=== PATIENT | male | born 1940 | race Caucasian/White ===

== ENCOUNTER 2016-05-09 06:26 | Inpatient (IN) | payer BC, OTHER ==
[2015-12-30 15:03] VITALS: BMI 40.0
--- NOTE | 2015-12-30 15:41 | PAT Medication Instructions ---
Service Date Dec 30, 2015. Current Home Medication List Aspirin (Aspirin Ec), 81 MG PO QAM Bimatoprost (Lumigan), 1 DROPS OPB HS Celecoxib (Celecoxib), 200 MG PO QAM Cholecalciferol (Vitamin D), 2,000 INTER.UNIT PO QAM Cyanocobalamin (Vitamin B-12 1000 Mcg), 1,000 MCG PO QAM Donepezil HCl (Donepezil HCl), 5 MG PO HS Duloxetine HCl (Duloxetine HCl), 60 MG PO QPM Fluticasone Propionate (Nasal) (Flonase), 2 SPRAYS DEVENDRA DAILY PRN PRN for Allergies Gabapentin (Neurontin), 600 MG PO TID Hctz/Losartan (Hyzaar 25MG/100MG), 1 TAB PO QAM Ipratropium-Albuterol (Combivent Respimat), 1 PUFFS INH QID PRN PRN for SOB/ Wheezing Krill Oil (Krill Oil), 1 CAP PO QPM Lactobacillus (Acidophilus), 1 CAP PO BID Levothyroxine Sodium (Levothyroxine Sodium), 25 MCG PO 3XWK Levothyroxine Sodium (Levothyroxine Sodium), 50 MCG PO 4XWK Methadone Hcl (Dolophine), 40 MG PO QAM Methadone Hcl (Dolophine), 30 MG PO QPM/HS Mupirocin 2% (Bactroban 2%), 1 APPLN TOP BID Nystatin (Nystatin Cream), 1 APPLN TOP UD Omeprazole (Prilosec), 20 MG PO QAM Prednisone (Prednisone), 5 MG PO BID Trazodone HCl (Trazodone HCl), 100 MG PO HS Medication Instructions For Your Scheduled Surgery - Check with surgeon for instructions: Celecoxib (Celecoxib), 200 MG PO QAM - Hold the following medications 2 weeks prior to surgery: Krill Oil (Krill Oil), 1 CAP PO QPM - Hold the following medications 24 hours prior to surgery: Mupirocin 2% (Bactroban 2%), 1 APPLN TOP BID Nystatin (Nystatin Cream), 1 APPLN TOP UD - Hold the following medications the morning of surgery: Lactobacillus (Acidophilus), 1 CAP PO BID Hctz/Losartan (Hyzaar 25MG/100MG), 1 TAB PO QAM Cholecalciferol (Vitamin D), 2,000 INTER.UNIT PO QAM Cyanocobalamin (Vitamin B-12 1000 Mcg), 1,000 MCG PO QAM - Take the following medications the morning of surgery with a sip of water: Aspirin (Aspirin Ec), 81 MG PO QAM (okay to take per surgeon instructions) Prednisone (Prednisone), 5 MG PO BID Omeprazole (Prilosec), 20 MG PO QAM Methadone Hcl (Dolophine), 40 MG PO QAM Levothyroxine Sodium (Levothyroxine Sodium), 25 MCG PO 3XWK Levothyroxine Sodium (Levothyroxine Sodium), 50 MCG PO 4XWK Ipratropium-Albuterol (Combivent Respimat), 1 PUFFS INH QID PRN PRN for SOB/ Wheezing (if needed) Gabapentin (Neurontin), 600 MG PO TID Fluticasone Propionate (Nasal) (Flonase), 2 SPRAYS DEVENDRA DAILY PRN PRN for Allergies - Take the following medications as scheduled the night before surgery: Prednisone (Prednisone), 5 MG PO BID Trazodone HCl (Trazodone HCl), 100 MG PO HS Methadone Hcl (Dolophine), 30 MG PO QPM/HS Lactobacillus (Acidophilus), 1 CAP PO BID Ipratropium-Albuterol (Combivent Respimat), 1 PUFFS INH QID PRN PRN for SOB/ Wheezing Gabapentin (Neurontin), 600 MG PO TID Fluticasone Propionate (Nasal) (Flonase), 2 SPRAYS DEVENDRA DAILY PRN PRN for Allergies Duloxetine HCl (Duloxetine HCl), 60 MG PO QPM Bimatoprost (Lumigan), 1 DROPS OPB HS Donepezil HCl (Donepezil HCl), 5 MG PO HS If you have any questions please call us at [phone] (Leigh Bowen PA-C) or [phone] or [phone]
[2015-12-30 15:50] LABS: BASO % 0.2 %; BASO ABS # 0.02 K/uL (0-0.2); COMPLETE YES; EOS % 5.1 %; IG% 0.9 %; LYMPH ABS # 1.45 K/uL (1.2-3.4); MEAN CELL VOLUME 83.9 fL (80-100); MEAN CORPUSCULAR HEMOGLOBIN 26.9 pg (25-34); MEAN CORPUSCULAR HGB CONC 32.1 g/dl (32-36); MEAN PLATELET VOLUME 9.5 fL (7.4-10.4); MONO % 6.7 %; NEUT % 71.1 %; PLATELET COUNT 172 K/uL (130-400); RED BLOOD COUNT 4.65 M/uL (4.7-6.1); WHITE BLOOD COUNT 9.05 K/uL (4.8-10.8)
[2015-12-30 15:58] LABS: URINE APPEARANCE CLEAR (CLEAR); URINE BILIRUBIN NEG (NEG); URINE COLOR YELLOW; URINE NITRITE NEG (NEG); URINE PH 7.5 (4.5-7.5); ZZUR CULT IF INDIC CLEAN CATCH NO
[2015-12-30 16:02] LABS: MANUAL MICROSCOPIC REQUIRED? NO; REVIEW REQ? NO; UROBILINOGEN POS (NEG)
[2015-12-30 16:04] LABS: PARTIAL THROMBOPLASTIN RATIO 1.1; PROTHROMBIN TIME (PATIENT) 9.9 SECONDS (9.0-12.0)
[2015-12-30 16:35] LABS: BUN/CREATININE RATIO 16.6 (10-20); CREATININE 1.1 mg/dl (0.60-1.40); POTASSIUM 4.2 mmol/L (3.5-5.1)
--- NOTE | 2016-01-03 14:08 | HISTORY & PHYSICAL EXAMINATION ---
DATE OF ADMISSION: 01/25/2016 CHIEF COMPLAINT: Left knee degenerative joint disease. HISTORY OF PRESENT ILLNESS: This 75-year-old white male presented to the office with his with complaints of left knee pain for the last 6-7 months. He had minor discomfort in the knee before then. He had a fall in June and has had persisting knee pain since. It is present mostly with standing and ambulation. Mild discomfort when he rests. He is currently sitting in a wheelchair. He denies any catching or locking. He has tried cortisone injections, activity modification, and viscosupplementation as well as topical anti-inflammatories without lasting relief. X-rays have been obtained. He elects to proceed with left total knee arthroplasty in hopes of alleviating his pain. PAST MEDICAL HISTORY: Significant for hypertension, obesity, hypothyroidism, sleep apnea, history of stroke, fibromyalgia, osteoarthritis, depression, migraines, and seborrheic keratosis. PREVIOUS SURGERIES: Parathyroid excision 1993, herniorrhaphy 2000, bowel resection 1999, kidney stone extraction, skin cancer excision, left shoulder arthroscopy, knee arthroscopy, and cholecystectomy. ALLERGIES: KNOWN ALLERGY TO IVP DYE. CURRENT MEDICATIONS: Aspirin 81 mg daily, Combivent inhaler b.i.d., vitamin B12 2500 mcg sublingual daily, Voltaren topical gel q.i.d. p.r.n., Dulera inhaler q.i.d., Neurontin 300 mg p.o. q.i.d., Hyzaar 100 mg/12.5 mg p.o. daily, Synthroid 25 mcg p.o. daily, methadone 40 mg p.o. t.i.d., multivitamin daily, trazodone 50 mg p.o. at bedtime. SOCIAL HISTORY: The patient is retired. . No alcohol use, quit tobacco use in July 2007. FAMILY HISTORY: Noncontributory. REVIEW OF SYSTEMS: Significant for above stated conditions, otherwise unremarkable. PHYSICAL EXAMINATION: GENERAL: Well-developed, well-nourished elderly white male in no acute distress. Sitting in a wheelchair. Alert and oriented. SKIN: Warm and dry with good turgor. No rashes or lesions. No ecchymosis or erythema. He does have some minor abrasions present on his right anterior farias. HEAD, EYES, EARS, NOSE, AND THROAT: Normocephalic, atraumatic. Eyes PERRLA, EOMI. Nares patent bilaterally without turbinate enlargement. Oropharynx without erythema or exudate. No lesions noted. Uvula midline. Oral mucosa moist. Upper denture plate is noted. He has no current lower denture plate. HEART: RRR. No MGR. LUNGS: Clear to auscultation bilaterally. No crackles, rhonchi or wheezing. Good air movement. ABDOMEN: Obese. Bowel sounds present x4, soft, nontender. No organomegaly. No masses. MUSCULOSKELETAL: Left knee evaluation reveals no intra-articular effusion. Prominent tibial tubercle. He has focal pain with palpation over the medial and lateral joint lines. There is also peripatellar discomfort with palpation. No crepitus with motion. Stable collateral ligaments. He lacks approximately 5 degrees of terminal extension. Flexion to around 95 degrees. Strength is 4+/5 with fair quad tone. He is unable to hold a straight leg raise. No defect in the patellar tendon or quadriceps tendon. Patellar mobility is fair. Right knee has intact motion, but he does have motor deficits for flexion and extension. Strength is 4/5 for the right. He has intact function to the upper extremities without appreciable deficit. NEUROLOGIC: Cranial nerves II through XII are intact. Gross sensation is intact across both lower extremities via soft touch. Peripheral pulses are 2+. DATA: Radiographic images obtained show end-stage DJD of the left knee in the patellofemoral compartment. He has significant arthritic change in the medial and lateral compartments as well. Periarticular osteophytes, subchondral sclerosis, and joint space narrowing are evident. IMPRESSION: Left knee end-stage degenerative joint disease. Right lower extremity residual weakness from previous cerebrovascular accident. PLAN: Informed written consent was obtained to proceed with left total knee arthroplasty. Postoperative prescriptions for Percocet and Coumadin will be provided at discharge from the hospital. Anticipate discharge to either [facility] or [facility] after surgery. [facility] is the first option with [facility] as a backup. He has already been evaluated by [facility] and they feel he is a reasonable candidate. He already has an appropriate wheelchair. He will obtain medical clearance from Dr. Meyers. Preoperative lab work, EKG, and chest x-ray have been ordered.
--- NOTE | 2016-04-16 13:53 | HISTORY & PHYSICAL EXAMINATION ---
DATE OF ADMISSION: 05/09/2016 PREOPERATIVE HISTORY AND PHYSICAL ATTENDING PHYSICIAN: Dr. Momo Disla. CHIEF COMPLAINT: Left knee DJD. HISTORY OF PRESENT ILLNESS: This is a 75-year-old male who presents to clinic today for preoperative history and physical examination. The patient has a longstanding history of persistent left knee pain that has become worse over the past year. The patient has failed conservative treatment to try to alleviate pain in his left knee. The patient has been scheduled for surgical procedure several times but has had to cancel due to the presence of shingles on his torso. The patient states that the shingles have resolved completely. The patient states that at this time he uses a walker when moving around his house at all times. At present, he is seated in a wheelchair for his evaluation today. The patient's is concerned today because she states the patient has fallen over his walker approximately 3 times in the past several weeks and had superficial abrasions to the posterior aspect of his right elbow and also complains of right wrist pain. She would like the patient to have x-rays of his wrist and elbow obtained at today's visit to be sure that no fracture is visible. Otherwise, the patient denies chest pain, shortness of breath, fever, chills, sweats, nausea, vomiting, diarrhea or numbness or tingling in his left lower extremity. PAST SURGICAL HISTORY: Parathyroid excision, hernia repair, bowel resection, kidney stone extraction, skin cancer excision, left shoulder arthroscopy, right knee arthroscopy and cholecystectomy. PAST MEDICAL HISTORY: Hypertension, obesity, hypothyroidism, sleep apnea, stroke x2, fibromyalgia, osteoarthritis, depression, migraines, seborrheic keratosis, colitis and history of C. diff. MEDICATIONS: Acidophilus oral tablet 1 tab daily, Aricept 1 tab at bedtime, aspirin low strength 81 mg enteric-coated tablet 1 tab daily, Celebrex 200 mg oral capsule 1 capsule as needed for pain, Combivent inhaler twice daily, Cymbalta 1 tab daily, fish oil 1000 mg capsule 1 capsule daily, Hyzaar 100 mg/12.5 mg oral tablet 1 tab daily, methadone 40 mg oral tablet 1 tap 3 times daily, Neurontin 300 mg oral capsule 1 capsule 4 times daily, nortriptyline 10 mg oral capsule 1 capsule daily, prednisone 5 mg tablet twice daily, Synthroid 25 mcg oral tablet 1 tab daily, vitamin B12 2500 mcg sublingual tablet daily, Voltaren 1% topical gel 1 application 4 times daily as needed for pain. ALLERGIES: THE PATIENT HAS AN ALLERGY TO IVP DYE. SOCIAL HISTORY: The patient denies history of alcohol or illicit drug use, states he was a pack per day smoker for 20+ years, but quit approximately 8 years ago. FAMILY HISTORY: Noncontributory. PHYSICAL EXAMINATION: SKIN: The patient's skin is normal in appearance. No open skin lesions or discharge. EYES: Pupils are equal and reactive to light and accommodation. Extraocular movements are intact. EARS: Canals are clear of cerumen. Tympanic membranes are intact bilaterally with no bulging or effusion. NOSE: Turbinates pink and boggy in appearance. No appreciable rhinorrhea. THROAT: Posterior oropharynx clear with absence of edema, erythema or exudate. CARDIOVASCULAR: The patient has a regular rate and rhythm with no murmurs or gallops appreciated. LUNGS: Auscultation of the lung jha reveals clear breath sounds throughout with no wheezing, rales or rhonchi. ABDOMEN: Obese, nondistended, nontender with normoactive bowel sounds. EXTREMITIES: LEFT KNEE: The patient has medial and lateral joint line tenderness upon palpation with knee placed in a flexed position. He also has audible crepitation with active, passive range motion of the left knee joint; however, there is no notable edema, erythema, ecchymosis, warmth or palpable bony deformity. The patient's left patella is nonmobile due to arthritic changes within the patellofemoral joint. The patient has no varus or valgus laxity and negative AP drawer sign and negative Kathrin test. Left calf soft and supple, nontender to palpation. He is able to extend to 5 degrees and flex to approximately 92 degrees. He experiences no referred knee pain with dorsi or plantarflexion of the foot actively or passively against resistance. The patient is neurovascularly intact left lower extremity. His peripheral pulses are palpable. His capillary refill is brisk. RIGHT UPPER EXTREMITY: The patient has superficial skin tear of the posterior aspect of the right proximal forearm covered with Band-Aids. He has some mild tenderness to palpation over this area; however, he has no tenderness over the olecranon, the radial head, medial and lateral epicondylar distal humerus. He is able to reach terminal flexion and extension of the elbow joint. The patient was also experiences mild tenderness to palpation over the dorsal surface of the right distal radius with some minimal edema, but no erythema, ecchymosis, warmth or palpable deformity. He elicits pain over this area with deep palpation but has no referred pain with flexion, extension, ulnoradial deviation, pronation or supination of the wrist directly or passively against resistance. The patient has no tenderness over his metacarpals. He has good dexterity in his fingers and strength is equal bilaterally. He is able to resist distraction compression of the digits able to resist distraction grasp. He is neurovascularly intact in right upper extremity. Peripheral pulses are palpable. Capillary refill is brisk. All other extremities are normal in appearance with appropriate range of motion and strength. NEUROLOGIC: Cranial nerves II-XII are intact with no motor or sensory deficit. PSYCHOLOGICAL AND GENERAL: The patient is alert and oriented x3 with proper grooming and hygiene. DIAGNOSIS: Left knee degenerative joint disease. PROCEDURE: Left total knee arthroplasty. RADIOGRAPHIC IMAGING: Left knee - images show endstage degenerative joint disease of the patellofemoral compartment as well as significant arthritic changes within the medial and lateral compartments with multiple femoral condylar osteophytes, subchondral sclerosis, and joint space narrowing. Right wrist, elbow and forearm and hand x-rays - no appreciable fracture noted in any of the elbow films in the presence of the anterior, posterior fat pad. Wrist x-rays show no appreciable fracture of the distal radius or ulna. No involvement of any carpal bones; however, x-rays of the head showed an old-healing fracture of the shaft of the right fourth metacarpal. The patient also has significant arthritis within and wrist joints. PLAN: The patient is scheduled to undergo this procedure with Dr. Momo zapienity at the [facility] on 05/09/2016. Risks and complications of surgery were explained to the patient understands and agrees. Written consent to perform the procedure was obtained. The patient was advised to significant risks including infection, bleeding, pain, scarring, nerve and blood vessel damage, weakness, wound problems, stiffness, incomplete relief of symptoms, heart attack, stroke, , hardware failure, loosening, molina of fracture, blood clots and embolism. The patient was also given an order to obtain preoperative blood work including CBC, CMP, PT, INR, PTT, blood type and screen, urinalysis, urine culture and sensitivity, EKG, chest x-ray and medical clearance from his primary care provider, Dr. Zuleta. The patient states that he will obtain necessary blood work when he is scheduled to have his preoperative anesthesia testing at the hospital. The patient was advised that provided with a prescription for pain medication upon discharge from the hospital along with Coumadin that will take this for 6 weeks postoperatively for DVT prophylaxis. The patient and states that he will most likely go to rehab facility, preferably [facility] in [place] for 2 weeks and then continue rehabilitation at a facility close to their home. The patient was advised of his postoperative followup visit will be scheduled with Joey Fu on 05/24/2016 at 10:00 a.m. The patient was provided with a new wrist splint to wear on his right wrist due to the strain that he suffered from the fall and he uses a walker for ambulation all times. The patient's thanks for the care that they received at our clinic today and states that if they have any other additional questions or concerns that should arise prior to the scheduled surgical date they will contact the clinic accordingly. LEVI
[2016-04-18 11:39] VITALS: BMI 41.0
--- NOTE | 2016-04-18 12:20 | PAT Medication Instructions ---
Service Date Apr 18, 2016. Current Home Medication List Aspirin (Aspirin Ec), 81 MG PO QAM Bimatoprost (Lumigan), 1 DROPS OPB HS Celecoxib (Celecoxib), 200 MG PO QPM Cholecalciferol (Vitamin D), 2,000 INTER.UNIT PO QPM Cyanocobalamin (Vitamin B-12 1000 Mcg), 1,000 MCG PO QAM Donepezil HCl (Donepezil HCl), 5 MG PO HS Duloxetine HCl (Duloxetine HCl), 60 MG PO HS Gabapentin (Neurontin), 600 MG PO TID Hctz/Losartan (Hyzaar 25MG/100MG), 1 TAB PO QAM Ipratropium-Albuterol (Combivent Respimat), 1 PUFFS INH QID PRN for SOB/Wheezing Krill Oil (Krill Oil), 1 CAP PO QPM Lactobacillus (Acidophilus), 1 CAP PO BID Levothyroxine Sodium (Levothyroxine Sodium), 25 MCG PO 3XWK Levothyroxine Sodium (Levothyroxine Sodium), 50 MCG PO 4XWK Methadone Hcl (Dolophine), 40 MG PO QAM Methadone Hcl (Dolophine), 30 MG PO QPM/HS Mupirocin 2% (Bactroban 2%), 1 APPLN TOP BID PRN for PRN Nortriptyline (Pamelor), 10 MG PO HS Nystatin (Nystatin Cream), 1 APPLN TOP UD Omeprazole (Prilosec), 20 MG PO NOON Prednisone (Prednisone), 5 MG PO BID Solifenacin (Vesicare), 10 MG PO QPM Medication Instructions For Your Scheduled Surgery - Check with surgeon for instructions: Celecoxib (Celecoxib), 200 MG PO QPM - Hold the following medications 2 weeks prior to surgery: Krill Oil (Krill Oil), 1 CAP PO QPM - Hold the following medications 24 hours prior to surgery: Nystatin (Nystatin Cream), 1 APPLN TOP UD Mupirocin 2% (Bactroban 2%), 1 APPLN TOP BID PRN for PRN - Hold the following medications the morning of surgery: Hctz/Losartan (Hyzaar 25MG/100MG), 1 TAB PO QAM Lactobacillus (Acidophilus), 1 CAP PO BID Cholecalciferol (Vitamin D), 2,000 INTER.UNIT PO QPM Cyanocobalamin (Vitamin B-12 1000 Mcg), 1,000 MCG PO QAM - Take the following medications the morning of surgery with a sip of water: Prednisone (Prednisone), 5 MG PO BID Omeprazole (Prilosec), 20 MG PO NOON Methadone Hcl (Dolophine), 40 MG PO QAM (per prescribing physician instructions) Levothyroxine Sodium (Levothyroxine Sodium), 25 MCG PO 3XWK Levothyroxine Sodium (Levothyroxine Sodium), 50 MCG PO 4XWK Gabapentin (Neurontin), 600 MG PO TID Ipratropium-Albuterol (Combivent Respimat), 1 PUFFS INH QID PRN for SOB/Wheezing Aspirin (Aspirin Ec), 81 MG PO QAM (okay to continue per surgeon) - Take the following medications as scheduled the night before surgery: Bimatoprost (Lumigan), 1 DROPS OPB HS Solifenacin (Vesicare), 10 MG PO QPM Prednisone (Prednisone), 5 MG PO BID Nortriptyline (Pamelor), 10 MG PO HS Methadone Hcl (Dolophine), 30 MG PO QPM/HS Lactobacillus (Acidophilus), 1 CAP PO BID Gabapentin (Neurontin), 600 MG PO TID Duloxetine HCl (Duloxetine HCl), 60 MG PO HS Ipratropium-Albuterol (Combivent Respimat), 1 PUFFS INH QID PRN for SOB/Wheezing Donepezil HCl (Donepezil HCl), 5 MG PO HS If you have any questions please call us at [phone] (Leigh Bowen PA-C) or [phone] or [phone]
[2016-04-18 12:53] LABS: BASO % 0.2 %; BASO ABS # 0.02 K/uL (0-0.2); COMPLETE YES; EOS % 3.6 %; HEMATOCRIT 37.7 % (42-52); IG% 0.5 %; LYMPH % 13.3 %; LYMPH ABS # 1.26 K/uL (1.2-3.4); MEAN CELL VOLUME 82.5 fL (80-100); MEAN CORPUSCULAR HEMOGLOBIN 26.5 pg (25-34); MEAN CORPUSCULAR HGB CONC 32.1 g/dl (32-36); MEAN PLATELET VOLUME 10.4 fL (7.4-10.4); MONO % 5.8 %; NEUT % 76.6 %; PLATELET COUNT 213 K/uL (130-400); RED BLOOD COUNT 4.57 M/uL (4.7-6.1)
[2016-04-18 13:06] LABS: PARTIAL THROMBOPLASTIN RATIO 1.1; PROTHROMBIN TIME (PATIENT) 10.2 SECONDS (9.0-12.0)
[2016-04-18 13:23] LABS: BUN/CREATININE RATIO 19.7 (10-20); POTASSIUM 4.3 mmol/L (3.5-5.1)
[2016-04-18 14:22] LABS: CALCIUM 9.2 mg/dl (8.5-10.1)
[2016-04-24 13:58] LABS: URINE APPEARANCE CLEAR (CLEAR); URINE BILIRUBIN NEG (NEG); URINE COLOR YELLOW; URINE NITRITE NEG (NEG); URINE PH 7.5 (4.5-7.5); URINE SPECIFIC GRAVITY 1.008 (1.000-1.030); UROBILINOGEN NEG (NEG); ZZUR CULT IF INDIC CLEAN CATCH NO
[2016-04-24 14:10] LABS: MANUAL MICROSCOPIC REQUIRED? NO; REVIEW REQ? NO
[~2016-05-09] VITALS: Ht 180.3 cm; Wt 133.7 kg
[2016-05-09] VITALS (9 sets, daily range): BP systolic 132–173; BP diastolic 59–104; PULSE 64–73; TEMP 36.5–37; O2SAT 70–97; Ht 180.3 cm; Wt 133.7 kg
[~2016-05-09 06:26] MED LIST: ARC5 PO; ASPI81TA28 PO; BCTROWC TOP; BIMA0.01 OPB; CEFAZOLIN 3000 MG/65 ML D5W 65 ML IV SCH; CELE1CAP30 PO; CHOL200010 PO; CYAN10004 PO; CYM60 PO; GABA-113 PO; HYZ/10015 PO; IPRA1AER2 INH; KRIL1000 PO; LACTATED RINGER'S 1000ML IV SCH; LACTATED RINGER'S 500 ML IV SCH; LACTCAP3 PO; LEVO25TA5 PO; METH10TA2 PO; NORT10CA2 PO; NYSCR30 TOP; OMEP20CA9 PO; PRED-301 PO; ROPIVACAINE 5MG/ML 30 ML 150 MG, BUPIVACAINE/EPINEPHR 0.5% MPF 30 ML, KETOROLAC TROMETH... INFIL SCH; SOLI10TA2 PO; TRANEXAMIC ACID INJ 1,000 MG in SODIUM CHLORIDE 0.9% 100ML 100 ML IV SCH; TRANEXAMIC ACID INJ 1,000 MG in SODIUM CHLORIDE 0.9% 100ML 100 ML TOP ONE
--- NOTE | 2016-05-09 06:29 | History & Physical Bridge Note ---
H&P Re-Evaluation Bridge Note: I have examined the patient, reviewed the History & Physical and in the interval since the performance of the History & Physical I have noted the following changes of clinical significance: No changes note...dredavised of risks
[2016-05-09] MEDS ORDERED: FENTANYL CITRATE INJ 50 MCG/1 ML 2 ML VIAL ONE (07:31)
[2016-05-09] MEDS ORDERED: MIDAZOLAM HCL 1 MG/ML 2ML VIAL ONE ×2 (07:32)
[2016-05-09] MEDS ORDERED: ONDANSETRON INJ 2 MG/ML 2 ML VIAL IV PRN ×2 (07:45→10:30)
[2016-05-09] MEDS ORDERED: ATROPINE SULFATE 0.1 MG/ML 5ML SYR IV PRN (07:45)
[2016-05-09] MEDS ORDERED: EpHEDrine SULFATE INJ 50 MG/ML AMP IV PRN (07:45)
[2016-05-09] MEDS ORDERED: FENTANYL CITRATE INJ 50 MCG/1 ML 2 ML VIAL IV PRN (07:45)
[2016-05-09] MEDS ORDERED: ORTHO JOINT ANESTHETIC ONE (08:30)
[2016-05-09] MEDS ORDERED: PROPOFOL IV EMULSION 10 MG/ML 20 ML VIAL IV ONE (09:13)
[2016-05-09] MEDS ORDERED: POVIDONE-IODINE OP SOLN 30 ML BTL TOP ONE (10:08)
--- NOTE | 2016-05-09 10:24 | [facility] Post Operative Brief Note ---
Immediate Operative Summary Operative Date May 09, 2016. Pre-Operative Diagnosis Left Knee Degenerative Joint Disease Post-Operative Diagnosis Left Knee Degenerative Joint Disease Procedure(s) Performed Left Total Knee Arthroplasty Surgeon Dr. Disla Dental Intern Surgeon(s) LIZBETH Gay Estimated Blood Loss 150 Findings severe djd Fluids (cc crystalloids) 1500cc Specimens A. Left Knee Bone and Tissue Drains none Anesthesia spinal Complication(s) None Disposition Recovery Room / PACU
[2016-05-09] MEDS ORDERED: MAGNESIUM HYDROXIDE SUSP 30 ML UDC PO PRN (10:30)
[2016-05-09] MEDS ORDERED: DiphenhydrAMINE HCL 50 MG/ML VIAL IV PRN (10:30)
[2016-05-09] MEDS ORDERED: METOCLOPRAMIDE HCL INJ 5 MG/ML 2 ML VIAL IV PRN (10:30)
[2016-05-09] MEDS ORDERED: NYSTATIN CR 15 GM TUBE EXT SCH (10:30)
[2016-05-09] MEDS ORDERED: ALUMINUM/MAGNESIUM/SIMETH (MAALOX MAX) 30 ML UDC PO PRN (10:30)
[2016-05-09] MEDS ORDERED: ACETAMINOPHEN 325 MG TAB PO PRN (10:30)
[2016-05-09] MEDS ORDERED: IPRATROPIUM BROMIDE/ALBUTEROL respimat INH INH PRN (10:30)
[2016-05-09] MEDS ORDERED: MoRPHine SULFATE 2 MG/ML CARP IV PRN (10:30)
[2016-05-09] MEDS ORDERED: TAMSULOSIN HCL 0.4 MG CAP PO PRN (10:30)
[2016-05-09] MEDS ORDERED: BISACODYL 10 MG SUPP PR PRN (10:30)
--- NOTE | 2016-05-09 10:46 | OPERATIVE REPORT ---
DATE OF OPERATION: 05/09/2016 PREOPERATIVE DIAGNOSIS: Osteoarthritis left knee. POSTOPERATIVE DIAGNOSIS: Same. OPERATION PERFORMED: Cemented left total knee replacement. SURGEON: Dr. Disla. CHANNEL INSTALLER: Joey Fu PA-C. No resident or fellow available. PERIOPERATIVE SITUATION: Medically cleared male with numerous comorbidities including neurologic deficit on his opposite side. He depends on this leg to ambulate well. He has significant pain and discomfort. He has significant knob on the extensor mechanism distal attachment at the tibial tubercle. His x-rays reveal end-stage disease. He wished to proceed with surgical treatment. He has been on the schedule multiple times but canceled based on comorbidities. Presently is cleared. OPERATION AND FINDINGS: OPERATION: The patient appropriately identified, site verified, consent verified, 3 grams of Ancef confirmed as being given. The left lower extremity was prepped and draped in usual routine fashion. Tourniquet inflated to 300 mmHg after exsanguination of limb with a rubber Esmarch bandage for a total of approximately 1 hour. Anterior approach to the knee was then made, full thickness flaps raised. Parapatellar arthrotomy performed, a complete synovectomy completed, osteophytes resected. Ligaments were preserved medially and laterally and the cruciates were sacrificed. Distal femur then entered and resected 14 mm, proximal tibia subluxated resected 4 mm. The extension gap was excellent and alignment was excellent. The femur was sized between a 5 and a 6. It was measured 6 cut 5. Flexion gap was excellent. The box cut was then made and the size 5 trial fit well. The tibia was then subluxated and then broached and reamed appropriately to a size 5. The spacer was between 10 and 12.5. The 12.5 gave better flexion stability. It did not compromise extension. The patella tracked relatively well. Internal lateral release improved this. The wound was then irrigated. All trial implants were removed. Orthomix injected. The wound irrigated. The implants were then cemented into position. After 12 minutes, the tourniquet deflated. After 14 minutes the knee flexed. Minor cement removed. The wound irrigated with Betadine. The wound irrigated with Pulsavac. The permanent liner was then seated. The knee reduced and then the wound closed using #1 Ethibond, #1 Vicryl, 2-0 Vicryl and stainless steel clips. It should be mentioned that TXA was also placed in the wound after it was irrigated to minimize bleeding. Estimated blood loss was 150 mL. Crystalloid approximately 1500 mL. DVT prophylaxis will be with Coumadin and bridging Lovenox. SUMMARY OF IMPLANTS: Size 5 posterior cruciate substituting femur, size 5 rotating platform. Oval domed 3 pegged patella size 41, tibial insert size 5 x 12.5 posterior cruciate substituting, 2 bags of Palacos G cement. Estimated blood loss as noted. I attest to the content of the Intraoperative Record and any orders documented therein. Any exceptio ns are noted below.
--- NOTE | 2016-05-09 11:29 | DIAGNOSTIC IMAGING REPORT ---
LEFT KNEE 2 VIEWS History: Left total knee arthroplasty. Degenerative arthritis. Postop. FINDINGS: The patient is status post a left total knee arthroplasty. The hardware is intact. No fracture or dislocation. Skin rodney are in place. IMPRESSION: Left total knee arthroplasty. No evidence for hardware complication. Electronically signed by: Virgil Tijerina M.D. 05/09/2016 11:27 AM
--- NOTE | 2016-05-09 12:38 | Anesthesiology Progress Note ---
Anesthesia Post Op Note Date & Time May 09, 2016 at 12:37 Vital Signs Pain Intensity: 0 Vital Signs Past 12 Hours Date Time Temp Pulse Resp B/P Pulse Ox O2 Delivery O2 Flow Rate FiO2 05/09/16 12:30 61 16 127/55 95 Nasal Cannula 3 05/09/16 12:20 62 16 118/62 94 Nasal Cannula 3 05/09/16 12:10 68 16 126/56 94 Nasal Cannula 3 05/09/16 12:00 68 16 125/65 94 Nasal Cannula 3 05/09/16 11:50 62 16 122/57 95 Nasal Cannula 3 05/09/16 11:40 61 16 120/66 96 Nasal Cannula 3 05/09/16 11:30 62 16 128/62 97 Nasal Cannula 3 05/09/16 11:20 63 16 128/58 97 Nasal Cannula 3 05/09/16 11:10 65 16 142/61 98 Nasal Cannula 3 05/09/16 11:00 61 12 130/55 95 Nasal Cannula 3 05/09/16 10:50 64 12 140/73 98 Nasal Cannula 3 05/09/16 10:40 68 18 137/59 99 Nasal Cannula 3 05/09/16 10:30 69 14 102/80 97 Nasal Cannula 3 05/09/16 10:24 36.2 63 14 100/54 98 Mask 10 05/09/16 06:57 37.0 72 18 173/104 95 Room Air Notes Mental Status: alert / awake / arousable, participated in evaluation Pt Amnestic to Procedure: Yes Nausea / Vomiting: adequately controlled Pain: adequately controlled Airway Patency, RR, SpO2: stable & adequate BP & HR: stable & adequate Hydration State: stable & adequate Neuraxial Anesthesia: was administered, sensory block is resolving Anesthetic Complications: no major complications apparent
[2016-05-09] MEDS ORDERED: ACETAMINOPHEN IV 100 ML IV PRN (13:15)
--- NOTE | 2016-05-09 13:23 | OPERATIVE REPORT ---
DATE OF OPERATION: 05/09/2016 PREOPERATIVE DIAGNOSIS: Left knee degenerative joint disease. POSTOPERATIVE DIAGNOSIS: Left knee same. PROCEDURE: Left knee total knee arthroplasty using DePuy implants. SURGEON: Dr. Disla. RISK DEVELOPER: Joey Fu PA-C. HISTORY OF PRESENT ILLNESS: This 75-year-old white male presented to the office with complaints of intractable left knee pain. He has a baseline neurologic deficit on the right side from previous stroke. He relies on the left leg for ambulation and balance. He had tried conservative care measures to control his pain without success. The patient elected to proceed with surgical intervention after being educated about potential risks and outcomes. OPERATION: The patient was administered spinal anesthetic and then taken to the operating room where he was given sedation. He was prepped and draped in the usual sterile fashion. Please see Dr. Disla's operative report for specifics of the procedure. I was present for the entire case from initial patient positioning through final wound closure. Assistance was provided in tissue retraction, hemostasis, trial implant placement, final implant placement, and final wound closure. The patient was taken to the recovery room in satisfactory condition. I attest to the content of the Intraoperative Record and any orders documented therein. Any exceptio ns are noted below.
--- NOTE | 2016-05-09 13:56 | PROGRESS NOTE ---
DATE: 05/09/2016 Postop check wound clean and dry. Neurovascular check is limited by his spinal. X-rays postop look excellent. At this point, continue with care pathway and have him seen by social worker palliative care. Will need rehab services based on his neurologic deficit on his opposite extremity, both upper and lower. Potentially transfer when stable, even as soon as tomorrow if bed available.
[2016-05-09] MEDS ORDERED: MoRPHine SULFATE 4 MG/ML 1 ML CARP\\VIAL IV PRN (14:30)
[2016-05-09] MEDS: D5W AND 1/2NSS + 20MEQ KCL 1,000 ML IV SCH ×2 (14:38→23:43)
[2016-05-09] MEDS: CEFAZOLIN IV 2,000 MG in DEXTROSE 5% 50ML 50 ML IV SCH ×2 (14:38→23:42)
[2016-05-09] MEDS ORDERED: WARFARIN SOD 5 MG TAB PO ONE (16:00)
[2016-05-09] MEDS: KETOROLAC TROMETHAMINE 15 MG/ML VIAL IV. SCH ×2 (16:05→21:37)
[2016-05-09] MEDS: GABAPENTIN 300 MG CAP PO SCH ×2 (16:05→21:36)
--- NOTE | 2016-05-09 16:13 | Medical Consult ---
Consultation Date of Consultation: May 09, 2016. Attending Physician: Momo Disla M.D. Reason for Consultation: Medical management post OP History of Present Illness Patient is a 75 Yr old male with PMH of HTN, Hypothyroidism, Sleep apnea, CVA, Fibromyalgia, Osteoarthritis, Depression presented to [facility] for an elective left total Knee arthroplasty for a degenerative joint disease. Patient is interviewed and examined post OP. Currently he denies any knee pain at the surgical site. He also denies any chest pain, SOB, palpitations, cough, wheezing , dizziness, nausea, vomiting, abdominal pain, change in bowel/bladder habits. He states having CVA 16 yrs ago which affected his right side of the body and currently uses a walker to ambulate at baseline. Past Medical/Surgical History Medical Problems: (1) Ambulatory dysfunction Status: Acute (2) Ataxia Status: Acute (3) Diplopia Status: Acute (4) Fall Status: Acute (5) Frequent falls Status: Acute (6) Generalized weakness Status: Acute (7) Hip pain Status: Acute (8) History of CVA with residual deficit Status: Acute (9) Right rib fracture Status: Acute S/P Cholecystectomy and shoulder surgery Family History Diabetes mellitus Gallbladder disease Heart disease Hypertension Kidney disease Kidney stones Lung disease Stroke Reviewed, Not clinically relevant Social History Smoking Status: Former Smoker Drug Use: none Marital Status: Housing Status: lives with family, lives with significant other Occupation Status: retired Allergies Coded Allergies: Iodinated Contrast Media (Verified Allergy, Intermediate, HIVES, 05/09/16) Home Medications Reviewed Current Inpatient Medications Current Inpatient Medications Medications (Trade) Dose Ordered Sig/Milka Route Start Time Stop Time Status Last Admin Dose Admin Lactated Ringer's 1,000 ml @ 60 mls/hr [id number] IV 05/09/16 06:00 05/09/16 22:39 Cefazolin Sodium 65 ml @ 100 mls/hr PREOP IV 05/09/16 06:00 05/09/16 18:00 05/09/16 08:46 100 MLS/HR Ropivacaine 150 mg/Bupivacaine HCl/Epinephrine Bitart 30 ml/ Ketorolac Tromethamine 30 mg/Dexamethasone Sodium Phosphate 4 mg/Ketamine HCl 10 mg/Clonidine 100 mcg/Sodium Chloride 30 ml/ Empty Bag 93.2 ml @ 0 mls/hr PREOP INFIL 05/09/16 06:00 05/09/16 16:00 05/09/16 06:00 93.2 MLS/HR Potassium Chloride/Dextrose/ Sod Cl 1,000 ml @ 100 mls/hr Q10H IV 05/09/16 14:45 05/10/16 14:44 05/09/16 14:38 100 MLS/HR Cefazolin Sodium/ Dextrose (Ancef Iv/D5 50ml) 60 ml @ 100 mls/hr Q8H IV 05/09/16 16:00 05/10/16 00:35 05/09/16 14:38 100 MLS/HR Ketorolac Tromethamine (Toradol Inj) 15 mg Q6H IV. 05/09/16 16:00 05/10/16 15:59 Oxycodone HCl (Roxicodone Immediate Rel Tab) 1 TABLET FOR PAIN RATING... Q4H PRN PO 05/09/16 10:30 05/23/16 10:29 Morphine Sulfate (MoRPHine SULFATE INJ) 2 mg Q1H PRN IV 05/09/16 10:30 05/23/16 10:29 Acetaminophen (Tylenol Tab) 650 mg Q6H PRN PO 05/09/16 10:30 06/08/16 10:29 Magnesium Hydroxide (Milk Of Magnesia Susp) 30 ml Q6H PRN PO 05/09/16 10:30 06/08/16 10:29 Bisacodyl (Dulcolax Supp) 10 mg DAILY PRN DC 05/09/16 10:30 06/08/16 10:29 Docusate Sodium (coLACE CAP) 100 mg BID PO 05/09/16 21:00 06/08/16 20:59 Diphenhydramine HCl (Benadryl Inj) 25 mg Q8H PRN IV 05/09/16 10:30 06/08/16 10:29 Al Hydrox/Mg Hydrox/Simethicone (Maalox Max Susp) 15 ml Q4H PRN PO 05/09/16 10:30 06/08/16 10:29 Multivitamins (Multivitamin Tab) 1 tab QAM PO 05/10/16 09:00 06/09/16 08:59 Ondansetron HCl (Zofran Inj) 4 mg Q6H PRN IV 05/09/16 10:30 06/08/16 10:29 Metoclopramide HCl (Reglan Inj) 10 mg Q6H PRN IV 05/09/16 10:30 06/08/16 10:29 Ferrous Gluconate (Ferrous Gluconate Tab) 324 mg TIDM PO 05/09/16 17:45 06/08/16 17:44 Pantoprazole Sodium (Protonix Tab) 40 mg QAM PO 05/10/16 09:00 06/09/16 08:59 Tamsulosin HCl 0.4 mg 0.4 mg QAM PRN PO 05/09/16 10:30 06/08/16 10:29 Dexamethasone Sodium Phosphate/ Syringe (Decadron Inj/ Syringe) 2.5 ml @ 1 mls/min TODAY@0730 IV 05/10/16 07:30 05/10/16 07:33 Aspirin (Ecotrin Tab) 81 mg QAM PO 05/10/16 09:00 06/09/16 08:59 Cyanocobalamin (Vitamin B-12 Tab) 1,000 mcg QAM PO 05/10/16 09:00 06/09/16 08:59 Donepezil HCl (Aricept Tab) 5 mg HS PO 05/09/16 21:00 06/08/16 20:59 Duloxetine HCl (Cymbalta Cap) 60 mg HS PO 05/09/16 21:00 06/08/16 20:59 Gabapentin (Neurontin Cap) 600 mg TID PO 05/09/16 14:00 06/08/16 13:59 HCTZ/Losartan Potassium (Hyzaar 50-12.5 Tab) 1 tab QAM PO 05/10/16 09:00 06/09/16 08:59 Albuterol/ Ipratropium (Combivent Respimat Inh) 1 puffs QID PRN INH 05/09/16 10:30 06/08/16 10:29 Levothyroxine Sodium (Synthroid Tab) 25 mcg MoWeFr@0700 PO 05/11/16 07:00 06/10/16 06:59 Levothyroxine Sodium (Synthroid Tab) 50 mcg SuTuThSa@0700 PO 05/10/16 07:00 06/09/16 06:59 Nortriptyline HCl (Pamelor Cap) 10 mg HS PO 05/09/16 21:00 06/08/16 20:59 Bimatoprost (Lumigan 0.01%) 1 drops HS OPB 05/09/16 21:00 06/08/16 20:59 Hydromorphone HCl 1 mg 1 mg Q2H PRN IV 05/09/16 13:00 05/23/16 12:59 Acetaminophen (Ofirmev Iv) 100 ml @ 400 mls/hr Q8H PRN IV 05/09/16 13:15 05/10/16 13:00 Morphine Sulfate (MoRPHine SULFATE INJ) 4 mg Q1H PRN IV 05/09/16 14:30 05/23/16 14:29 Warfarin Sodium (Coumadin Tab) 5 mg TODAY@1600 ONCE PO 05/09/16 16:00 05/09/16 16:01 Review of Systems See HPI for pertinent positives & negatives. A total of 10 systems reviewed and were otherwise negative. Physical Exam Date Time Temp Pulse Resp B/P Pulse Ox O2 Delivery O2 Flow Rate FiO2 05/09/16 15:01 Nasal Cannula 05/09/16 14:59 Room Air 05/09/16 14:36 72 16 137/76 97 Nasal Cannula 3.0 05/09/16 14:10 67 16 138/71 97 Nasal Cannula 3.0 05/09/16 13:40 36.6 70 18 164/76 70 Nasal Cannula 3.0 05/09/16 13:20 36.8 62 14 136/62 95 Nasal Cannula 3 05/09/16 13:05 62 14 145/58 94 Nasal Cannula 3 05/09/16 12:55 61 14 142/55 94 Nasal Cannula 3 05/09/16 12:40 36.8 62 16 119/69 94 Nasal Cannula 3 05/09/16 12:30 61 16 127/55 95 Nasal Cannula 3 05/09/16 12:20 62 16 118/62 94 Nasal Cannula 3 05/09/16 12:10 68 16 126/56 94 Nasal Cannula 3 05/09/16 12:00 68 16 125/65 94 Nasal Cannula 3 05/09/16 11:50 62 16 122/57 95 Nasal Cannula 3 05/09/16 11:40 61 16 120/66 96 Nasal Cannula 3 05/09/16 11:30 62 16 128/62 97 Nasal Cannula 3 05/09/16 11:20 63 16 128/58 97 Nasal Cannula 3 05/09/16 11:10 65 16 142/61 98 Nasal Cannula 3 05/09/16 11:00 61 12 130/55 95 Nasal Cannula 3 05/09/16 10:50 64 12 140/73 98 Nasal Cannula 3 05/09/16 10:40 68 18 137/59 99 Nasal Cannula 3 05/09/16 10:30 69 14 102/80 97 Nasal Cannula 3 05/09/16 10:24 36.2 63 14 100/54 98 Mask 10 05/09/16 06:57 37.0 72 18 173/104 95 Room Air General Appearance: WD/WN, no apparent distress Head: normocephalic, atraumatic Eyes: normal inspection, PERRL, EOMI, sclerae normal ENT: normal ENT inspection, hearing grossly normal, TMs normal, pharynx normal Neck: supple, no adenopathy, no JVD, no carotid bruits, trachea midline Respiratory/Chest: chest non-tender, lungs clear, normal breath sounds, no respiratory distress, no accessory muscle use Cardiovascular: regular rate, rhythm, no edema, no gallop, no JVD, no murmur, normal peripheral pulses, + tachycardia Abdomen/GI: normal bowel sounds, non tender, soft, no organomegaly, no pulsatile mass, occult blood negative Back: normal inspection, no CVA tenderness Extremities/Musculoskelatal: normal inspection, no calf tenderness, no pedal edema, non-tender, pelvis stable, + pertinent finding (Left knee in surgical bandage) Neurologic/Psych: corner former II-XII nml as tested, no motor/sensory deficits, alert, normal mood/affect, normal reflexes, oriented x 3 Skin: normal color, warm/dry, no rash Lymphatic: no adenopathy Laboratory Results Left Knee X ray: Left total knee arthroplasty. No evidence for hardware complication. Assessment & Plan Patient is a 75 Yr old male with PMH of HTN, Hypothyroidism, Sleep apnea, CVA, Fibromyalgia, Osteoarthritis, Depression presented to [facility] for an elective left total Knee arthroplasty for a degenerative joint disease. Assessment and Plan: Hypertension: Well controlled Continue Hyzaar Hypothyroidism: Stable Continue Levothyroxine Osteoarthritis s/p Left TKA POD #0 Orthopedics managing Anticoagulation and Pain control per Ortho PT/OT Bowel regimen to prevent constipation H/O CVA: With residual right sided tingling/numbness Continue Aspirin No new symptoms/deficits PT/OT DEMETRIS: Currently not tolerating CPAP use Stable Morbid Obesity: BMI:41.1 Encourage lifestyle modifications Depression: Stable Continue home medications DVT Px: SCDs Thank you for this consultation. We will follow the patient with you during their hospital stay. You can reach a member of the [facility] Hospitalist Team 26/11 via pager @ .
[2016-05-09] MEDS: HYDROmorphone INJ 1 MG/ML SYR IV PRN ×2 (16:42→18:55)
[2016-05-09] MEDS ORDERED: WARF2TAB PO (17:06)
[2016-05-09] MEDS ORDERED: OXYC-57 PO (17:06)
[2016-05-09] MEDS: FERROUS GLUCONATE 324 MG TAB PO SCH (18:01)
[2016-05-09] MEDS ORDERED: DULOXETINE HCL 60 MG CAP PO SCH (21:00)
[2016-05-09] MEDS ORDERED: DONEPEZIL HCL 5 MG TAB PO SCH (21:00)
[2016-05-09] MEDS ORDERED: DULOXETINE (CYMBALTA) 30 MG CAP PO SCH (21:00)
[2016-05-09] MEDS ORDERED: BIMATOPROST 0.01% OP SOLN 2.5 ML BTL OPB SCH (21:00)
[2016-05-09] MEDS ORDERED: NORTRIPTYLINE HCL 10 MG CAP PO SCH (21:00)
[2016-05-09] MEDS: DOCUSATE SODIUM 100 MG CAP PO SCH (21:35)
[2016-05-09] MEDS: OXYCODONE HCL IR 5 MG TAB (IMMEDIATE RELEASE) PO PRN (21:53)
[2016-05-10 03:12] VITALS: BP 157/81; PULSE 67; TEMP 36.6; O2SAT 96
[2016-05-10] MEDS: OXYCODONE HCL IR 5 MG TAB (IMMEDIATE RELEASE) PO PRN ×2 (03:17→16:47)
[2016-05-10] MEDS: KETOROLAC TROMETHAMINE 15 MG/ML VIAL IV. SCH ×2 (04:08→09:58)
[2016-05-10] MEDS ORDERED: LEVOTHYROXINE 50 MCG TAB PO SCH (07:00)
[2016-05-10 07:17] VITALS: BP 128/74; PULSE 70; TEMP 36.6; O2SAT 97
[2016-05-10 07:30] LABS: HEMATOCRIT 28.7 % (42-52); MEAN CELL VOLUME 80.2 fL (80-100); MEAN CORPUSCULAR HGB CONC 32.4 g/dl (32-36); MEAN PLATELET VOLUME 10.4 fL (7.4-10.4); PLATELET COUNT 169 K/uL (130-400); RED BLOOD COUNT 3.58 M/uL (4.7-6.1); WHITE BLOOD COUNT 9.34 K/uL (4.8-10.8)
[2016-05-10] MEDS ORDERED: DEXAMETHASONE INJ 10 MG in SYRINGE 0 ML IV SCH (07:30)
[2016-05-10] MEDS: FERROUS GLUCONATE 324 MG TAB PO SCH ×3 (07:49→16:44)
[2016-05-10 08:04] LABS: BUN/CREATININE RATIO 19.8 (10-20); CREATININE 1.1 mg/dl (0.60-1.40); POTASSIUM 3.8 mmol/L (3.5-5.1)
--- NOTE | 2016-05-10 08:25 | Anesthesiology Progress Note ---
Anesthesia Post Op Note Date & Time May 10, 2016 at 08:24 Vital Signs Vital Signs Past 12 Hours Date Time Temp Pulse Resp B/P Pulse Ox O2 Delivery O2 Flow Rate FiO2 05/10/16 07:17 36.6 70 16 128/74 97 Nasal Cannula 2.0 05/10/16 03:12 36.6 67 16 157/81 96 Nasal Cannula 2.0 05/09/16 23:45 Nasal Cannula 05/09/16 23:05 36.7 67 14 132/74 95 Nasal Cannula 2.0 Notes Mental Status: alert / awake / arousable, participated in evaluation Pt Amnestic to Procedure: Yes Nausea / Vomiting: adequately controlled Pain: adequately controlled Airway Patency, RR, SpO2: stable & adequate BP & HR: stable & adequate Hydration State: stable & adequate Neuraxial Anesthesia: sensory block resolved Anesthetic Complications: no major complications apparent
[2016-05-10] MEDS ORDERED: CYANOCOBALAMIN 500 MCG TAB (VIT B-12) PO SCH (09:00)
[2016-05-10] MEDS ORDERED: PANTOprazole SOD 40 MG TAB PO SCH (09:00)
[2016-05-10] MEDS ORDERED: ASPIRIN 81 MG ECTAB PO SCH (09:00)
[2016-05-10] MEDS ORDERED: MULTIVITAMIN TAB PO SCH (09:00)
[2016-05-10] MEDS ORDERED: LOSARTAN/HCTZ 50-12.5 EA TAB PO SCH (09:00)
--- NOTE | 2016-05-10 09:00 | Discharge Instructions ---
Discharge Instructions Admission Reason for Admission: Left Knee Degenerative Joint Disease Discharge Discharge Diagnosis / Problem: Left knee s/p total knee replacement Discharge Goals Goal(s): Decrease discomfort, Improve function, Increase independence Activity Recommendations Activity Level: Assistance Required Therapies: Physical Therapy, Weight Bearing Status (left leg as tolerated), Occupational Therapy Weightbearing Status: Left weightbearing (as tolerated) Lifting Limitations: none Exercise/Sports Limitations: none Shower/Bathe: keep incision dry . Additional Information Patient informed of condition: Yes Advance Directives: Yes DNR: No Level of Care: Acute Rehab Communicable Disease: No Prognosis: Stable Concepcion Catheter: No Instructions / Follow-Up Instructions / Follow-Up New Medicine: * You will likely be taking one or more of these medications: 1. Percocet - Take, as directed, when you need it, every four to six hours to control your pain. 2. Iron Sulfate - Take three times each day for the month after surgery to help you replace the blood lost during surgery. 3. Coumadin - Thins your blood to lessen the chance of forming a blood clot. The dose of this is different for each person and is based on your blood tests that are done twice a week. * The most common side effects of pain medicine and iron are nausea and constipation. If nausea or constipation is too much of a problem or if you have any questions about your new medicines or doses, call [facility] at . We will try to help you manage these issues. VERY IMPORTANT TO READ AND REVIEW" Blood Clots and Blood Thinning Medicine: * You are given Coumadin during the immediate post-operative period to lessen the risk of blood clots forming in your legs and/or lungs. Coumadin is usually given for six weeks after surgery. * The prescription is for 2 mg tablets. At discharge, you should understand your dose and take it all at the same time every day, preferably after dinner. * You need to get your blood checked 1 - 2 times per week for six weeks or as directed. * If your dose needs to change, we will call you. Do not take your medication on the day of the blood test until we call you. Pain: * The immediate post-operative period after knee replacement surgery is often quite painful. * You are given a prescription for pain medicine. You should take it, as directed, when you need it, especially before physical therapy and before going to bed. Pain that interferes with sleep is very common and can last several months. * You will likely need pain medicine for the first four to six weeks. It will not stop all of the pain. The pain will lessen and as you feel better, you may change to milder pain medicine such as Tylenol. * The most common side effects of pain medicine are nausea and constipation, so don't take more than you need. Physical Therapy: * You will have physical therapy two or three times each week for four to six weeks after your surgery in order to regain your knee range of motion and to retrain your knee to work properly. * It is just as important to make sure you are getting your knee perfectly straight as it is to regain your knee bend. * Taking a pain pill an hour before therapy can help you have a more productive and comfortable therapy session if needed. Home Exercise: * You were shown a series of exercises (heel props, heel slides, etc.) in the hospital. Do these exercises three to four times each day including the exercises you were shown in physical therapy. Walking: * Get up and walk several times each day. For the first four weeks, try not to stand or walk for more than one hour at a time. If you do stand or walk for more than one hour, you will not hurt anything, but your knee and leg will likely swell. * As you feel comfortable, you may change from the walker or crutches to a cane and then to independent walking. SELF CARE INSTRUCTIONS AFTER TOTAL KNEE REPLACEMENT A. You may need to continue a physical therapy program after discharge from the hospital. There are several options available to you. Your doctor will assist you in selecting the best one for you. 1. An out-patient facility 2 to 3 times a week for therapy or home therapy. 2. Continue working on all exercises taught to you in the hospital. Your goals should be to increase bending of your knee to 90 degrees and beyond and to fully straighten your knee. B. You may progress at your own pace from walking with a walker or crutches to a cane; then to no assistive devices. C. Make walking a part of your daily routine. Be up as much as comfortable with rest periods throughout the day. Rest with leg elevation is very important. Use the ice wrap frequently for the first 3-4 weeks. D. There are no restrictions on activities. You may ride in a car, shop, participate in instrument and electrical technician and all social activities. E. Wear the long elastic stockings (MOISES hose) 20 hours a day for six weeks after surgery. They can be removed several times a day for laundering and for a shower. F. Do not place a pillow behind your knee when resting. A pillow at your ankle is okay. VERY IMPORTANT TO READ AND REVIEW A. Take Coumadin, Aspirin or Lovenox (blood thinning medications) as directed by your doctor. If on Coumadin, have a pro-time (blood test) drawn according to your doctor's instructions. This will tell the doctor how well the Coumadin is thinning your blood. 1. YOU WILL BE GIVEN AN ORDER AT DISCHARGE FOR PT/INR (BLOOD WORK). PLEASE HAVE THIS DONE INSTRUCTED. PLEASE CALL OUR OFFICE AFTER YOUR BLOODWORK IS COMPLETE SO WE CAN TRACK YOUR RESULTS. IF YOU ARE GOING TO OUTPATIENT PHYSICAL THERAPY, YOU WILL NEED TO GO TO OUTPATIENT TESTING TO HAVE IT DRAWN. B. There are a few signs you need to watch for after you are home. Call [facility] if you notice any of the followin. Increased severe knee pain. Some pain is expected especially when you exercise. 2. Increased swelling in your leg or knee; pain or swelling of the calf muscle in either lower leg. 3. Any fluid drainage from the incision. 4. Shortness of breath or chest pain. C. Please call [facility] at if you have any concerns or questions about your operation or recovery. The doctor or his nurse will return your call promptly. D. You must take antibiotics before dental work, bladder, bowel or other surgery. Call the office to obtain a prescription at least 2 days prior to your appointment. * CALL IF INCREASED PAIN, REDNESS, DRAINAGE OR FEVER GREATER THAT 101. * Sutures should be removed 12-14 days after surgery unless you are on chronic steriods, then it will be 14-18 days after surgery. Call your doctor if: * Temperature above 101 degrees F. * Pain not relieved by pain medicine ordered. * Increased drainage or redness from incision. * Notify your doctor with any questions or concerns. Current Hospital Diet Patient's current hospital diet: AHA Diet (Heart Healthy) Discharge Diet Recommended Diet: AHA Diet (Heart Healthy) Procedures Procedures Performed: Left Total Knee Arthroplasty Pending Studies Studies pending at discharge: no Physician Orders On Transfer Dressing Changes: as needed for soiling Vital Signs: per facility routine Medical Emergencies . Who to Call and When: Medical Emergencies: If at any time you feel your situation is an emergency, please call 911 immediately. . Non-Emergent Contact Non-Emergency issues call your: Primary Care Provider, Surgeon Call Non-Emergent contact if: temperature is above 100.5, wound has increased drainage, wound has increased redness, wound has increased pain, you have any medication questions . . "Provider Documentation" section prepared by Joey Fu PA-C. Core Measure Problem Core Measures: None [place] Drug Monitoring Program Search Results: patient reviewed within database
--- NOTE | 2016-05-10 09:11 | Orthopedic Progress Note ---
Orthopedic Progress Note Date of Service May 10, 2016. Subjective Post OP Day: 1 Reports: complaints, feeling well, Denies: SOB, calf pain, chest pain, light headedness, nausea / vomiting Additional Notes: did well without his methadone Objective calves soft nontender, N/V intact, capillary refill less than 2 sec., incision C /D/I, A&O x3, toes mobile, CMS intact dressing had some bloody drainage, also urine soaked posteriorly(proximal) Date Time Temp Pulse Resp B/P Pulse Ox O2 Delivery O2 Flow Rate FiO2 05/10/16 07:17 36.6 70 16 128/74 97 Nasal Cannula 2.0 05/10/16 03:12 36.6 67 16 157/81 96 Nasal Cannula 2.0 05/09/16 23:45 Nasal Cannula 05/09/16 23:05 36.7 67 14 132/74 95 Nasal Cannula 2.0 05/09/16 19:43 36.9 73 16 147/70 97 Nasal Cannula 2.0 05/09/16 16:45 36.5 71 16 141/59 94 Nasal Cannula 3.0 05/09/16 15:51 36.5 64 16 136/78 93 Nasal Cannula 3.0 05/09/16 15:15 Nasal Cannula 3.0 05/09/16 15:01 Nasal Cannula 05/09/16 14:59 Room Air 05/09/16 14:36 72 16 137/76 97 Nasal Cannula 3.0 05/09/16 14:10 67 16 138/71 97 Nasal Cannula 3.0 05/09/16 13:40 36.6 70 18 164/76 70 Nasal Cannula 3.0 05/09/16 13:20 36.8 62 14 136/62 95 Nasal Cannula 3 05/09/16 13:05 62 14 145/58 94 Nasal Cannula 3 05/09/16 12:55 61 14 142/55 94 Nasal Cannula 3 05/09/16 12:40 36.8 62 16 119/69 94 Nasal Cannula 3 05/09/16 12:30 61 16 127/55 95 Nasal Cannula 3 05/09/16 12:20 62 16 118/62 94 Nasal Cannula 3 05/09/16 12:10 68 16 126/56 94 Nasal Cannula 3 05/09/16 12:00 68 16 125/65 94 Nasal Cannula 3 05/09/16 11:50 62 16 122/57 95 Nasal Cannula 3 05/09/16 11:40 61 16 120/66 96 Nasal Cannula 3 05/09/16 11:30 62 16 128/62 97 Nasal Cannula 3 05/09/16 11:20 63 16 128/58 97 Nasal Cannula 3 05/09/16 11:10 65 16 142/61 98 Nasal Cannula 3 05/09/16 11:00 61 12 130/55 95 Nasal Cannula 3 05/09/16 10:50 64 12 140/73 98 Nasal Cannula 3 05/09/16 10:40 68 18 137/59 99 Nasal Cannula 3 05/09/16 10:30 69 14 102/80 97 Nasal Cannula 3 05/09/16 10:24 36.2 63 14 100/54 98 Mask 10 Laboratory Results 24 Hours: Test 05/10/16 06:45 Hematocrit 28.7 % Hemoglobin 9.3 g/dL Prothromb Time International Ratio 1.0 Prothrombin Time 11.0 SECONDS Assessment & Plan Assessment: Left knee post op day 1 total knee arthroplasty Plan: Dressing changed by me PT/OT today coumadin per nomogram will change from IV pain meds to his baseline methadone TID continue percocet for breakthrough pain anticipate transfer to [facility] later today or tomorrow pending insurance. Discharge Planning Discharge Planning: rehab hospital Pain Management: Percocet DVT Prophylaxis: TEDs, SCDs, Coumadin
[2016-05-10] MEDS: GABAPENTIN 300 MG CAP PO SCH ×2 (09:56→13:57)
[2016-05-10] MEDS: DOCUSATE SODIUM 100 MG CAP PO SCH (09:57)
[2016-05-10 11:05] VITALS: BP 164/71; PULSE 77; TEMP 36.8; O2SAT 95
[2016-05-10] MEDS: D5W AND 1/2NSS + 20MEQ KCL 1,000 ML IV SCH (12:07)
[2016-05-10] MEDS ORDERED: METHADONE HCL 10 MG TAB PO SCH (14:00)
[2016-05-10 14:53] VITALS: BP 168/89; PULSE 81; TEMP 36.5; O2SAT 95
--- NOTE | 2016-05-10 15:11 | Progress Note ---
Internal Med Progress Note Date of Service: May 10, 2016. Provider Documentation: SUBJECTIVE: Patient is interviewed and examined at bedside. States having knee pain while ambulating. Denies any chest pain, SOB, fever, chills. Patient had dressing changed this morning. OBJECTIVE: Vital Signs-as noted below General Appearance: WD/WN, no apparent distress Head: normocephalic, atraumatic Eyes: normal inspection, PERRL, EOMI, sclerae normal ENT: normal ENT inspection, hearing grossly normal, TMs normal, pharynx normal Neck: supple, no adenopathy, no JVD, no carotid bruits, trachea midline Respiratory/Chest: chest non-tender, lungs clear, normal breath sounds, no respiratory distress, no accessory muscle use Cardiovascular: regular rate, rhythm, no edema, no gallop, no JVD, no murmur, normal peripheral pulses Abdomen/GI: normal bowel sounds, non tender, soft, no organomegaly, no pulsatile mass, occult blood negative Back: normal inspection, no CVA tenderness Extremities/Musculoskelatal: normal inspection, no calf tenderness, no pedal edema, non-tender, pelvis stable, + pertinent finding (Left knee in surgical bandage) 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 ASSESSMENT & PLAN: Hypertension: Mildly elevated Denies any symptoms Continue Hyzaar Hypothyroidism: Stable Continue Levothyroxine Osteoarthritis s/p Left TKA POD #1 Orthopedics managing Anticoagulation and Pain control per Ortho PT/OT Bowel regimen to prevent constipation Methadone restarted today H/O CVA: With residual right sided tingling/numbness Continue Aspirin No new symptoms/deficits PT/OT DEMETRIS: Currently not tolerating CPAP use Stable Morbid Obesity: BMI:41.1 Encourage lifestyle modifications Depression: Stable Continue home medications DVT Px: SCDs Disposition: Per Primary team Vital Signs: Date Time Temp Pulse Resp B/P Pulse Ox O2 Delivery O2 Flow Rate FiO2 05/10/16 14:53 36.5 81 16 168/89 95 Room Air 05/10/16 11:05 36.8 77 18 164/71 95 Room Air 05/10/16 10:48 Nasal Cannula 2.0 05/10/16 07:17 36.6 70 16 128/74 97 Nasal Cannula 2.0 05/10/16 03:12 36.6 67 16 157/81 96 Nasal Cannula 2.0 05/09/16 23:45 Nasal Cannula 05/09/16 23:05 36.7 67 14 132/74 95 Nasal Cannula 2.0 05/09/16 19:43 36.9 73 16 147/70 97 Nasal Cannula 2.0 05/09/16 16:45 36.5 71 16 141/59 94 Nasal Cannula 3.0 05/09/16 15:51 36.5 64 16 136/78 93 Nasal Cannula 3.0 05/09/16 15:15 Nasal Cannula 3.0 Lab Results: Results Past 24 Hours Test 05/10/16 06:45 Range/Units White Blood Count 9.34 4.8-10.8 K/uL Red Blood Count 3.58 4.7-6.1 M/uL Hemoglobin 9.3 14.0-18.0 g/dL Hematocrit 28.7 42-52 % Mean Corpuscular Volume 80.2 80-100 fL Mean Corpuscular Hemoglobin 26.0 25-34 pg Mean Corpuscular Hemoglobin Concent 32.4 32-36 g/dl RDW Standard Deviation 44.3 36.4-46.3 fL RDW Coefficient of Variation 15.1 11.5-14.5 % Platelet Count 169 130-400 K/uL Mean Platelet Volume 10.4 7.4-10.4 fL Prothrombin Time 11.0 9.0-12.0 SECONDS Prothromb Time International Ratio 1.0 0.9-1.1 Sodium Level 138 136-145 mmol/L Potassium Level 3.8 3.5-5.1 mmol/L Chloride Level 101 98-107 mmol/L Carbon Dioxide Level 30 21-32 mmol/L Anion Gap 7.0 3-11 mmol/L Blood Urea Nitrogen 22 7-18 mg/dl Creatinine 1.10 0.60-1.40 mg/dl Est Creatinine Clear Calc Drug Dose 81.0 ml/min Estimated GFR () 75.7 Estimated GFR (Non- 65.3 BUN/Creatinine Ratio 19.8 10-20 Random Glucose 108 70-99 mg/dl Calcium Level 8.0 8.5-10.1 mg/dl
[2016-05-10 15:59] VITALS: BP 147/83
[2016-05-10] MEDS ORDERED: WARFARIN SOD 5 MG TAB PO SCH (16:00)
[2016-05-10 16:27] VITALS: BP 147/83; PULSE 81; TEMP 36.5; O2SAT 95
--- NOTE | 2016-05-11 01:23 | DISCHARGE SUMMARY ---
ATTENDING PHYSICIAN: Dr. Disla. CONSULTING PHYSICIAN: Dr. Miranda, hospitalist service. CONDITION AT DISCHARGE: Stable. DISCHARGE DIAGNOSIS: Left knee status post total knee arthroplasty. PROCEDURE: Left knee total knee arthroplasty on 05/09/2016. HISTORY OF PRESENT ILLNESS: This 75-year-old white male presented to the office with complaints of left knee pain that had been longstanding and worse over the past year. He had failed conservative treatment and was scheduled for a total knee arthroplasty. Due to various medical complications, this was postponed several times, the latest of which was 12/2015. He was medically cleared and elected to proceed with left total knee arthroplasty. PAST SURGICAL HISTORY: Parathyroid excision, hernia repair, bowel resection, kidney stone extraction, skin cancer excision, left shoulder arthroscopy, right knee arthroscopy, cholecystectomy. PAST MEDICAL HISTORY: Significant for hypertension, stroke x2, TIAs, obesity, hypothyroidism, sleep apnea, fibromyalgia, osteoarthritis, depression, migraines, colitis and history of C. diff. ALLERGIES: KNOWN ALLERGY TO IVP DYE. SOCIAL HISTORY: The patient is retired and . No history of alcohol use. Quit tobacco use 8 years ago. FAMILY HISTORY: Noncontributory. HOSPITAL COURSE: The patient was admitted through same-day surgery on 05/09/2016. He underwent successful left total knee arthroplasty without event. He was transferred to recovery in satisfactory condition. He was transferred to the orthopedic floor and did well that evening. He had minimal discomfort and used limited narcotic medication. Due to his chronic methadone use, pharmacy was consulted for pain management recommendations. They did recommend use of IV medications for his acute postsurgical pain instead of the methadone and to hold the methadone due to potential interaction and oversedation with compounding narcotics. This was discussed with the patient on the evening of 05/09/2016. He was in agreement. He did well overnight. On 05/10/2016, he was again evaluated. He had no shortness of breath, chest pain, lightheadedness, nausea, vomiting or significant leg pain. He was sitting up, eating breakfast. After further discussion with the patient, he preferred to discontinue the IV medications and return to his methadone t.i.d. Orders were changed accordingly. Vitals did well overnight. He had a T-max of 36.9. H\T\H obtained this morning showed a hemoglobin of 9.3 and hematocrit of 28.7. INR was 1.0. He did receive Coumadin on the night of 05/09/2016. The patient did attend physical therapy and occupational therapy on 05/10/2016. Participation was limited due to his previous stroke. He was able to take several small side steps and only ambulated 3 feet. He was able to perform some transfers with minimal assist. [facility] was recommended. Knee flexion was able to get to 95 degrees. He was accepted at [facility] and will be transferred there this evening. DISCHARGE MEDICATIONS: Percocet 5/325 mg to be taken every 4 hours as needed for severe pain. Coumadin 4 mg daily with adjustment as needed for INR of 1.8 to 2.2. He will continue aspirin 81 mg daily, Lumigan 0.01% solution at bedtime, vitamin D 2000 unit capsule daily, vitamin B12 1000 mcg p.o. daily, donepezil 5 mg p.o. at bedtime, duloxetine hydrochloride 60 mg p.o. at bedtime, Neurontin 300 mg 2 tablets p.o. t.i.d., Hyzaar 25/100 mg p.o. q.a.m., Combivent inhaler 1 puff 4 times a day as needed, lactobacillus p.o. b.i.d., Synthroid 25 mcg 3 times a week and 50 mcg 4 times a week, methadone 40 mg q.a.m. and methadone 30 mg at 2:00 p.m. and at bedtime, Bactroban 2% ointment applied topically b.i.d. p.r.n., nortriptyline 10 mg p.o. at bedtime, nystatin cream applied topically as needed, Prilosec 20 mg p.o. daily, prednisone 5 mg p.o. b.i.d. and VESIcare 10 mg p.o. every evening. He will stop his Celebrex and Krill oil. DISCHARGE INSTRUCTIONS: Written discharge instructions were provided to the patient. He will keep the wound dry. After [facility] discharge, he will likely require home health for an additional few weeks. Follow up in the office on 05/24/2016 for staple removal.
[2016-05-11] MEDS ORDERED: LEVOTHYROXINE 25 MCG TAB PO SCH (07:00)
[2016-05-11] MEDS ORDERED: METHADONE HCL 10 MG TAB PO SCH (09:00)
[2016-05-23] MEDS ORDERED: AMOX1TAB43 PO (12:39)
[2016-05-23] MEDS ORDERED: WARF2TAB PO (12:41)
[2016-07-10] MEDS ORDERED: HYZ/10015 PO (12:54)
[2016-07-10] MEDS ORDERED: LEVO750T23 PO (12:54)
[2016-07-10] MEDS ORDERED: LCTX PO (12:54)
[2016-10-11] MEDS ORDERED: DONE1TAB11 PO (08:06)
[2016-10-11] MEDS ORDERED: MOML PO (08:06)
[2016-10-11] MEDS ORDERED: LEVO25TA5 PO (08:06)
[2016-10-11] MEDS ORDERED: MTH10 PO (08:06)
[2016-10-11] MEDS ORDERED: MELA1TAB5 PO (08:06)
[2016-10-11] MEDS ORDERED: HYZ/10015 PO (08:06)
[2016-10-11] MEDS ORDERED: CLB100 PO (08:06)
[2017-01-08] MEDS ORDERED: LEVO25TA5 PO (07:48)
[2017-01-08] MEDS ORDERED: CYAN10005 PO (07:48)
[2017-01-08] MEDS ORDERED: LACTCAP3 PO (07:48)
[2017-01-08] MEDS ORDERED: METH10TA2 PO (07:48)
[2017-01-08] MEDS ORDERED: GABA600T PO (07:48)
[2017-01-08] MEDS ORDERED: BIMA0.01 OP (07:48)
[2017-01-08] MEDS ORDERED: AMLO-114 PO (07:48)
[2017-01-08] MEDS ORDERED: SODIENE PR (07:48)
[2017-01-08] MEDS ORDERED: TRAZ100T29 PO (07:48)
[2017-01-08] MEDS ORDERED: MULT-506 PO (07:48)
[2017-01-08] MEDS ORDERED: TRAV0.00 OP (07:48)
[2017-01-08] MEDS ORDERED: IPRASOL4 INH (07:48)
[2017-01-08] MEDS ORDERED: MELO15TA4 PO (07:48)
[2017-01-08] MEDS ORDERED: BISA10SU3 PR (07:48)
[2017-01-08] MEDS ORDERED: ACET-1311 PO (07:48)
[2017-01-28] MEDS ORDERED: BROM0.0911 OPR (14:38)
[2017-01-28] MEDS ORDERED: BUME1TAB42 PO (14:40)
[2017-01-28] MEDS ORDERED: POTA10CA28 PO (14:45)
[2017-01-28] MEDS ORDERED: BRIN3SUS OPR (14:49)
[2017-01-28] MEDS ORDERED: PRED1SUS17 OP (14:51)
[2017-01-28] MEDS ORDERED: CPROT OPR (14:51)
[2017-01-31] MEDS ORDERED: LVQ750 PO ×2 (10:45→10:58)
[2017-03-12] MEDS ORDERED: BROM1SOL8 OPR (15:30)
[2017-03-12] MEDS ORDERED: LEVO1TAB33 PO (15:31)
== END 2016-05-10 17:47 | DRG 470 ==
LOC: ENRESERVDT → ENRESERVTM → C.ACU 06:26 → C.3E 06:30
PROVIDERS: ADMIT Physical Medicine & Rehabilitation Sports Medicine; ATTEND Physical Medicine & Rehabilitation Sports Medicine
PROC: 0SRD0J9 Replacement of Left Knee Joint with Synthetic Substitute, Cemented, Open Approach (ICD-10-PCS; principal; 2016-05-09 08:50)
DX: M17.12 Unilateral primary osteoarthritis, left knee (principal); Z68.41 Body mass index [BMI] 40.0-44.9, adult; I69.951 Hemiplegia and hemiparesis following unspecified cerebrovascular disease affecting right dominant side; E03.9 Hypothyroidism, unspecified; G47.33 Obstructive sleep apnea (adult) (pediatric); E66.01 Morbid (severe) obesity due to excess calories; F32.9 Major depressive disorder, single episode, unspecified; G43.909 Migraine, unspecified, not intractable, without status migrainosus; I10 Essential (primary) hypertension; M79.7 Fibromyalgia; L82.1 Other seborrheic keratosis; K21.9 Gastro-esophageal reflux disease without esophagitis; I73.9 Peripheral vascular disease, unspecified; Z99.89 Dependence on other enabling machines and devices; D64.9 Anemia, unspecified; M11.20 Other chondrocalcinosis, unspecified site; D47.2 Monoclonal gammopathy; F03.90 Unspecified dementia, unspecified severity, without behavioral disturbance, psychotic disturbance, mood disturbance, and anxiety; M25.561 Pain in right knee; Z86.19 Personal history of other infectious and parasitic diseases; Z87.19 Personal history of other diseases of the digestive system; Z91.19 Patient's noncompliance with other medical treatment and regimen; Z79.82 Long term (current) use of aspirin; Z79.52 Long term (current) use of systemic steroids; Z79.51 Long term (current) use of inhaled steroids; Z79.1 Long term (current) use of non-steroidal anti-inflammatories (NSAID); Z79.899 Other long term (current) drug therapy

== ENCOUNTER 2016-05-16 04:39 | Inpatient (IN) | payer BC, OTHER ==
[~2016-05-16] VITALS: Ht 182.9 cm; Wt 131.9 kg
[2016-05-16] VITALS (9 sets, daily range): BP systolic 102–152; BP diastolic 66–78; PULSE 78–113; TEMP 36.8–38.4; O2SAT 96–99; Ht 182.9 cm; Wt 131.9 kg
[~2016-05-16 04:39] MED LIST changes: -CEFAZOLIN 3000 MG/65 ML D5W 65 ML IV SCH; -CELE1CAP30 PO; -KRIL1000 PO; -LACTATED RINGER'S 1000ML IV SCH; -LACTATED RINGER'S 500 ML IV SCH; +OXYC-57 PO; -ROPIVACAINE 5MG/ML 30 ML 150 MG, BUPIVACAINE/EPINEPHR 0.5% MPF 30 ML, KETOROLAC TROMETH... INFIL SCH; -TRANEXAMIC ACID INJ 1,000 MG in SODIUM CHLORIDE 0.9% 100ML 100 ML IV SCH; -TRANEXAMIC ACID INJ 1,000 MG in SODIUM CHLORIDE 0.9% 100ML 100 ML TOP ONE; +WARF2TAB PO
--- NOTE | 2016-05-16 04:47 | EMERGENCY ROOM VISIT NOTE ---
History Report prepared by Marlyn: Kirill Agudelo Under the Supervision of: Dr. Drake Merritt M.D. First contact with patient: 04:40 Chief Complaint: SHORTNESS OF BREATH Stated Complaint: SHORTNESS OF BREATH History of Present Illness The patient is a 75 year old male who presents to the Emergency Room via EMS from [facility] with complaints of persistent shortness of breath starting tonight. As per transfer notes, the patient is status post knee surgery. He arrived at [facility] on May 10. As per EMS, he was altered and confused upon arrival to [facility]. Tonight, the patient started having vomiting and diarrhea. [facility] staff suspected that he may have aspirated. HPI is limited secondary to altered mental status. Source of History: transfer records, EMS History Limited By: AMS Onset: tonight Position: other (global) Quality: other (shortness of breath) Timing: other (persistent) Associated Symptoms: + diarrhea, + vomiting Review of Systems ROS is limited secondary to altered mental status. Past Medical & Surgical Medical Problems: (1) Chronic pain syndrome (2) COPD (chronic obstructive pulmonary disease) (3) CVA (cerebral infarction) (4) Hypothyroidism (5) FELICITA (iron deficiency anemia) (6) Left knee DJD (7) Monoclonal gammopathy (8) PMR (polymyalgia rheumatica) (9) Right-sided nerve pain (10) Right-sided numbness (11) Sleep apnea (12) SOB (shortness of breath) (13) TIA (transient ischemic attack) Surgical Problems: (1) H/O esophagogastroduodenoscopy (2) H/O hernia repair (3) S/P cholecystectomy (4) S/P small bowel resection Family History Diabetes mellitus Gallbladder disease Heart disease Hypertension Kidney disease Kidney stones Lung disease Stroke Social History Smoking Status: Former Smoker Alcohol Use: none Drug Use: none Marital Status: Housing Status: lives with family, lives with significant other Occupation Status: retired Current/Historical Medications Scheduled Aspirin (Aspirin Ec), 81 MG PO QAM Bimatoprost (Lumigan), 1 DROPS OPB HS Cholecalciferol (Vitamin D), 2,000 INTER.UNIT PO QPM Cyanocobalamin (Vitamin B-12 1000 Mcg), 1,000 MCG PO QAM Docusate Sodium (Docusate Sodium), 100 MG PO BID Donepezil HCl (Donepezil HCl), 5 MG PO HS Duloxetine HCl (Duloxetine HCl), 60 MG PO HS Enoxaparin (Lovenox), 40 MG SQ DAILY Gabapentin (Neurontin), 600 MG PO TID Hctz/Losartan (Hyzaar 25MG/100MG), 1 TAB PO QAM Lactobacillus (Acidophilus), 1 CAP PO BID Levothyroxine Sodium (Levothyroxine Sodium), 25 MCG PO 3XWK Levothyroxine Sodium (Levothyroxine Sodium), 50 MCG PO 4XWK Losartan Potassium (Cozaar), 100 MG PO DAILY Methadone Hcl (Dolophine), 40 MG PO QAM Methadone Hcl (Dolophine), 30 MG PO QPM/HS Nortriptyline (Pamelor), 10 MG PO HS Oseltamivir (Tamiflu), 75 MG PO DAILY Pantoprazole (Protonix), 40 MG PO DAILY Prednisone (Prednisone), 5 MG PO BID Senna (Senokot), 1 TAB PO DAILY Solifenacin (Vesicare), 10 MG PO QPM Warfarin Sod (Jantoven), Unknown Dose PO DAILY [lidocaine patch], 2 PATCH EXT DAILY Scheduled PRN Acetaminophen (Tylenol), 650 MG PO Q4 PRN for MILD PAIN Bisacodyl (Bisacodyl), 10 MG RE Q24H PRN for Constipation Ipratropium-Albuterol (Combivent Respimat), 1 PUFFS INH QID PRN for SOB/Wheezing Ondansetron Hcl (Zofran), 4 MG PO Q6 PRN for Nausea Oxycodone/Acetaminophen 5MG/325MG (Percocet 5MG/325MG), 1 TABLET PO Q4H PRN for Pain Allergies Coded Allergies: Iodinated Contrast Media (Verified Allergy, Intermediate, HIVES, 05/16/16) Physical Exam Vital Signs Date Time Temp Pulse Resp B/P Pulse Ox O2 Delivery O2 Flow Rate FiO2 05/16/16 06:03 110 36 112/62 97 BiPAP 05/16/16 05:34 113 98 40 05/16/16 05:28 110 36 99/59 97 BiPAP 05/16/16 04:46 110 05/16/16 04:43 39.3 109 36 138/67 98 Non-Rebreather 15.0 Physical Exam GENERAL: Patient is chronically unwell appearing and in moderate distress. He is acutely ill appearing as well. HEENT: No acute trauma, normocephalic atraumatic, mucous membranes moist, no nasal congestion, no scleral icterus. NECK: No stridor, no adenopathy, no meningismus, trachea is midline. LUNGS: Diffuse crackles with poor respiratory movement bilaterally. HEART: Regular rate and rhythm. No murmurs, rubs, gallops appreciated. ABDOMEN: Soft, nontender, bowel sounds positive, no masses appreciated, no peritonitis. BACK: No midline tenderness, no CVA tenderness EXTREMITIES: Significant swelling/bruising of the left leg with anterior dressing of the left knee. Mottled color to the feet which are cool but pulses remain intact. Moves arms weakly, left better than right. Does not attempt movement of legs. NEUROLOGIC: somnolent, awakens and answers questions simply before falling back to sleep, oriented to name only., no acute motor or sensory deficits, no focal weakness, cranial nerves grossly intact. SKIN: No rash, no jaundice, no diaphoresis. Medical Decision & Procedures ER Provider Diagnostic Interpretation: CT results as stated below per interpretation by me and the radiologist: CT HEAD Comparison with MRI from 09/08/[address] from 09/07/15. No acute intracranial hemorrhage or acute infarct by CT. No midline shift or hydrocephalus. Diffuse parenchymal atrophy and chronic ischemic small vessel white matter disease are re-demonstrated. Radiologist: Michael Carter MD X ray results are stated below per my interpretation: CHEST X-RAY Bilateral lower lobe infiltrates concerning for infection. Laboratory Results 05/16/16 05:04 Red Blood Count 4.04, Mean Corpuscular Volume 80.0, Mean Corpuscular Hemoglobin 26.2, Mean Corpuscular Hemoglobin Concent 32.8, Mean Platelet Volume 10.0, Neutrophils (%) (Auto) 86.7, Lymphocytes (%) (Auto) 6.1, Monocytes (%) (Auto) 4.2, Eosinophils (%) (Auto) 1.8, Basophils (%) (Auto) 0.1, Neutrophils # (Auto) 12.05, Lymphocytes # (Auto) 0.85, Monocytes # (Auto) 0.59, Eosinophils # (Auto) 0.25, Basophils # (Auto) 0.02 05/16/16 05:04 Test 05/16/16 05:04 05/16/16 05:06 05/16/16 05:35 05/16/16 06:00 White Blood Count 13.91 K/uL (4.8-10.8) Red Blood Count 4.04 M/uL (4.7-6.1) Hemoglobin 10.6 g/dL (14.0-18.0) Hematocrit 32.3 % (42-52) Mean Corpuscular Volume 80.0 fL (80-100) Mean Corpuscular Hemoglobin 26.2 pg (25-34) Mean Corpuscular Hemoglobin Concent 32.8 g/dl (32-36) Platelet Count 318 K/uL (130-400) Mean Platelet Volume 10.0 fL (7.4-10.4) Neutrophils (%) (Auto) 86.7 % Lymphocytes (%) (Auto) 6.1 % Monocytes (%) (Auto) 4.2 % Eosinophils (%) (Auto) 1.8 % Basophils (%) (Auto) 0.1 % Neutrophils # (Auto) 12.05 K/uL (1.4-6.5) Lymphocytes # (Auto) 0.85 K/uL (1.2-3.4) Monocytes # (Auto) 0.59 K/uL (0.11-0.59) Eosinophils # (Auto) 0.25 K/uL (0-0.5) Basophils # (Auto) 0.02 K/uL (0-0.2) RDW Standard Deviation 44.5 fL (36.4-46.3) RDW Coefficient of Variation 15.2 % (11.5-14.5) Immature Granulocyte % (Auto) 1.1 % Immature Granulocyte # (Auto) 0.15 K/uL (0.00-0.02) Nucleated RBC Absolute Count (auto) 0.07 K/uL (0-0) Nucleated Red Blood Cells % 0.5 % Prothrombin Time 21.8 SECONDS (9.0-12.0) Prothromb Time International Ratio 2.0 (0.9-1.1) Arterial Blood pH 7.44 (7.35-7.45) Arterial Blood Partial Pressure CO2 43 mmHg (35-46) Arterial Blood Partial Pressure O2 106 mm/Hg (80-95) Arterial Blood HCO3 29 mmol/L (19-24) Arterial Blood Oxygen Saturation 97.7 % (90-95) Arterial Blood Base Excess 3.9 mEq/L (-9-1.8) Arterial Blood Gas Delivery 100% Quan Test POSITIVE (POS) Anion Gap 11.0 mmol/L (3-11) Est Creatinine Clear Calc Drug Dose 64.1 ml/min Estimated GFR () 56.6 Estimated GFR (Non- 48.8 BUN/Creatinine Ratio 18.8 (10-20) Calcium Level 8.6 mg/dl (8.5-10.1) Magnesium Level 1.5 mg/dl (1.8-2.4) Total Bilirubin 0.7 mg/dl (0.2-1) Direct Bilirubin 0.2 mg/dl (0-0.2) Aspartate Amino Transf (AST/SGOT) 25 U/L (15-37) Alanine Aminotransferase (ALT/SGPT) 22 U/L (12-78) Alkaline Phosphatase 82 U/L (45-117) Total Creatine Kinase 153 U/L (39-308) Creatine Kinase MB 5.0 ng/ml (0.5-3.6) Creatine Kinase MB Ratio 3.3 (0-3.0) Troponin I < 0.015 ng/ml (0-0.045) Pro-B-Type Natriuretic Peptide 119 pg/ml (0-900) Total Protein 7.5 gm/dl (6.4-8.2) Albumin 2.7 gm/dl (3.4-5.0) Bedside Lactic Acid Venous 2.34 mmol/L (0.90-1.70) Urine Color DK YELLOW Urine Appearance CLEAR (CLEAR) Urine pH 5.0 (4.5-7.5) Urine Specific [place] 1.020 (1.000-1.030) Urine Protein NEG (NEG) Urine Glucose (UA) NEG (NEG) Urine Ketones NEG (NEG) Urine Occult Blood NEG (NEG) Urine Nitrite NEG (NEG) Urine Bilirubin NEG (NEG) Urine Urobilinogen NEG (NEG) Urine Leukocyte Esterase NEG (NEG) Urine WBC (Auto) /hpf (0-5) Urine RBC (Auto) /hpf (0-4) Urine Hyaline Casts (Auto) /lpf (0-5) Urine Epithelial Cells (Auto) /lpf (0-5) Urine Bacteria (Auto) (NEG) Urine RBC 0-4 /hpf (0-4) Urine WBC 0 /hpf (0-5) Urine Epithelial Cells 0-5 /lpf (0-5) Urine Bacteria NEG (NEG) Urine Mucus PRESENT (NONE PRSENT) Influenza Type A Antigen Neg for Influ A (NEG) Influenza Type B Antigen Neg for Influ B (NEG) Laboratory results as reviewed by me. Medications Administered Medications (Trade) Dose Ordered Sig/Milka Route Start Time Stop Time Status Last Admin Dose Admin Piperacillin Sod/ Tazobactam Sod (Zosyn Iv) 4.5 gm NOW STAT IV 05/16/16 05:09 05/16/16 05:11 DC 05/16/16 05:27 4.5 GM Acetaminophen 975 mg 975 mg NOW STAT NV 05/16/16 05:25 05/16/16 05:27 DC 05/16/16 05:46 975 MG Sodium Chloride 500 ml @ 999 mls/hr Q31M STAT IV 05/16/16 05:25 05/16/16 05:55 DC 05/16/16 05:41 999 MLS/HR Vancomycin HCl/ Sodium Chloride (Vancomycin Inj/ Nss 500ml) 554 ml @ 200 mls/hr NOW STAT IV 05/16/16 05:46 05/16/16 08:32 05/16/16 06:01 200 MLS/HR ECG Indication: SOB/dyspnea Rate (beats per minute): 108 Rhythm: sinus tachycardia Findings: RBBB, no acute ischemic change, no ectopy ED Course 0440: The patient was evaluated in room B06. A complete history and physical exam was performed. 0450: The patient is having worse difficulty with breathing. I requested respiratory to place the patient on BiPAP. 0509: Vancomycin HCl 1500 mg/Sodium Chloride 280 ml @ 125 mls/hr IV, Zosyn IV 4.5 gm IV 0500: I discussed the patient's case with his who completely agrees that he is DNR, he would not want to be intubated or receive CPR. 0520: The patient is ill appearing and in severe distress. 0525: Sodium Chloride 500 ml @ 999 mls/hr IV, Tylenol Supp 975 mg NV 0546: Vancomycin HCl 554 ml @ 200 mls/hr IV 0550: Upon reevaluation, the patient appears acutely ill but breathing more comfortably on BiPAP. Discussed results and treatment plan with the patient's . She verbalized understanding and agreement with the treatment plan. The patient will be evaluated for further management. 604: I discussed the patient's case with Dr. Knapp, from [facility] Service. Medical Decision Differential: Sepsis, Infectious (UTI/Pneumonia/Meningitis/etc), Metabolic/ Electrolyte Abnormality, Cardiac, Hepatic, Endocrine, Toxicologic, Neurologic, amongst other pathologies entertained. 75 yr old male arrives from rehab facility for worsening respiratory status. He is acutely on chronically ill. Review of chart reveals gradual decline over last year to due to strokes. Did have left knee replacement last week for which he has been in rehab. N/V/Diarrhea starting yesterday with increased fatigue/weakness. Vomiting profusely overnight and noted to aspirate vomitus. Hypoxic on anything but NRB mask and given poor respiratory drive switched over to bipap. Discussion with and review of hospital pprwrk make it clear patient is DNR with no intubation nor CPR. He is working to breath though is doing better on BiPAP than on NRB. He is more confused than his baseline per though still periodically looks around and weakly attempts to respond to voice. CXR with some likely developing bilateral lower lobe infiltrates. Abdomen with no TTP appreciated. CT head without bleed. INR therapeautic so PE seems unlikely. Left leg/knee look normal for post op and no evidence of infection at this time. Color improved with BiPAP as well. ABG OK. Started aggressive abx though with concern for fluid overload will hold off on full 30ml /kg bolus as it would assuredly lead to acute CHF further respiratory failure. After an hour of bipap patient becoming more responsive and interactive though still quite ill. Consults Time Called: [phone] Consulting Physician: Dr. Knapp, from [place] [facility] Returned Call: [phone] I discussed the patient's case with Dr. Knapp, from [facility] Service. Impression Primary Impression: Aspiration pneumonia Additional Impressions: Hypoxia Respiratory failure Critical Care I have personally spent greater than 45 minutes of critical care time in the direct management of this patient. This includes bedside care, interpretation of diagnostic studies, and testing, discussion with consultants, patient, and family members, and other required patient management activities. This 45 minutes is in excess of all separately billable procedures. Scribe Attestation The scribe's documentation has been prepared under my direction and personally reviewed by me in its entirety. I confirm that the note above accurately reflects all work, treatment, procedures, and medical decision making performed by me. Departure Information Dispostion Being Evaluated By Hospitalist Jose Alberto Mckinnon D.O. Pulmonary (PCP) Patient Instructions A Signature Page, My [facility] Problem Qualifiers Primary Impression: Aspiration pneumonia Aspiration pneumonia type: unspecified Laterality: bilateral Lung location : lower lobe of lung Qualified Codes: J69.0 - Pneumonitis due to inhalation of food and vomit Additional Impressions: Respiratory failure Chronicity: acute Respiratory failure complication: hypoxia Qualified Codes : J96.01 - Acute respiratory failure with hypoxia
[2016-05-16] MEDS ORDERED: VANCOMYCIN INJ 1,500 MG in SODIUM CHLORIDE 0.9% 250ML 250 ML IV STA (05:09)
[2016-05-16] MEDS ORDERED: PIPERACILLIN/TAZOBACTAM 4.5 GM/100ML D5W IV STA (05:09)
[2016-05-16] MEDS ORDERED: DOCU100C31 PO (05:10)
[2016-05-16] MEDS ORDERED: ENOX40IN SQ (05:13)
[2016-05-16] MEDS ORDERED: lidocaine patch EXT (05:19)
[2016-05-16 05:21] LABS: BASO % 0.1 %; BASO ABS # 0.02 K/uL (0-0.2); COMPLETE YES; EOS % 1.8 %; HEMATOCRIT 32.3 % (42-52); IG% 1.1 %; LYMPH % 6.1 %; LYMPH ABS # 0.85 K/uL (1.2-3.4); MEAN CORPUSCULAR HEMOGLOBIN 26.2 pg (25-34); MEAN CORPUSCULAR HGB CONC 32.8 g/dl (32-36); MONO % 4.2 %; NEUT % 86.7 %; PLATELET COUNT 318 K/uL (130-400); RED BLOOD COUNT 4.04 M/uL (4.7-6.1); WHITE BLOOD COUNT 13.91 K/uL (4.8-10.8)
[2016-05-16] MEDS ORDERED: LOSA1TAB38 PO (05:21)
[2016-05-16] MEDS ORDERED: OSEL75CA12 PO (05:24)
[2016-05-16] MEDS ORDERED: ACETAMINOPHEN 325 MG SUPP PR STA (05:25)
[2016-05-16] MEDS ORDERED: SODIUM CHLORIDE 0.9% 500ML 500 ML IV STA (05:25)
[2016-05-16] MEDS ORDERED: PANT40TA PO (05:26)
[2016-05-16 05:27] LABS: ARTERIAL BLD GAS O2 SATURATION 97.7 % (90-95); ARTERIAL BLOOD GAS BASE EXCESS 3.9 mEq/L (-9-1.8); ARTERIAL BLOOD GAS HCO3 29 mmol/L (19-24); ARTERIAL BLOOD GAS PO2 106 mm/Hg (80-95); ARTERIAL BLOOD GAS pH 7.44 (7.35-7.45)
[2016-05-16] MEDS ORDERED: SENN-61 PO (05:27)
[2016-05-16 05:28] LABS: PROTHROMBIN TIME (PATIENT) 21.8 SECONDS (9.0-12.0)
[2016-05-16] MEDS ORDERED: ACET-1311 PO (05:28)
[2016-05-16 05:29] LABS: ALLEN TEST POSITIVE (POS)
[2016-05-16] MEDS ORDERED: BISA10SU5 RE (05:29)
[2016-05-16 05:30] LABS: O2 ADMINISTRATION 100%
[2016-05-16] MEDS ORDERED: OXYC-57 PO (05:31)
[2016-05-16] MEDS ORDERED: ONDA4TAB46 PO (05:32)
[2016-05-16] MEDS ORDERED: WARF1TAB6 PO (05:34)
[2016-05-16 05:41] LABS: ALT/SGPT 22 U/L (12-78); AST/SGOT 25 U/L (15-37); BLOOD UREA NITROGEN 26 mg/dl (7-18); BUN/CREATININE RATIO 18.8 (10-20); CALCIUM 8.6 mg/dl (8.5-10.1); CARBON DIOXIDE 28 mmol/L (21-32); CHLORIDE 100 mmol/L (98-107); GLUCOSE 154 mg/dl (70-99); MAGNESIUM 1.5 mg/dl (1.8-2.4); POTASSIUM 3.1 mmol/L (3.5-5.1); SODIUM 139 mmol/L (136-145)
[2016-05-16] MEDS ORDERED: VANCOMYCIN INJ 2,700 MG in SODIUM CHLORIDE 0.9% 500ML 500 ML IV STA (05:46)
[2016-05-16 05:47] LABS: ALKALINE PHOSPHATASE 82 U/L (45-117); CKMB/CK RATIO 3.3 (0-3.0)
[2016-05-16 05:52] LABS: URINE APPEARANCE CLEAR (CLEAR); URINE BILIRUBIN NEG (NEG); URINE COLOR DK YELLOW; URINE NITRITE NEG (NEG); UROBILINOGEN NEG (NEG)
[2016-05-16 05:53] LABS: MANUAL MICROSCOPIC REQUIRED? YES; REVIEW REQ? NO
[2016-05-16 06:09] LABS: URINE BACTERIA NEG (NEG); URINE MUCUS PRESENT (NONE PRSENT); URINE RBC 0-4 /hpf (0-4); URINE WBC 0 /hpf (0-5)
[2016-05-16 06:10] LABS: ZZUR CULT IF INDIC CLEAN CATCH NO
--- NOTE | 2016-05-16 06:37 | DIAGNOSTIC IMAGING REPORT ---
CT HEAD WITHOUT CONTRAST (CT) CLINICAL HISTORY: Acute change in mental status COMPARISON STUDY: 09/07/2015 TECHNIQUE: Axial CT of the brain is performed from the vertex to the skull base. IV contrast was not administered for this examination. CT DOSE: 732.51 mGy.cm FINDINGS: No intra or extra-axial mass lesions are visualized. There is no CT evidence of acute cortical infarction. There is no evidence of midline shift. There is no acute hemorrhage. No calvarial fractures are visualized. There are patchy white matter hypodensities likely on a small vessel basis. There is an old infarct involving portions of the left temporal parietal occipital lobes. There is mild ventricular prominence in keeping with the degree of volume loss. There is no evidence of acute sinusitis IMPRESSION: Old post infarct changes. No acute intracranial findings Electronically signed by: Dominic Darling M.D. 05/16/2016 6:35 AM Dictated Date/Time: 05/16/2016 6:34 AM
--- NOTE | 2016-05-16 06:56 | DIAGNOSTIC IMAGING REPORT ---
CHEST ONE VIEW PORTABLE CLINICAL HISTORY: fever HYPOXIA COMPARISON STUDY: 09/07/2015 FINDINGS: The heart is mildly enlarged. There is aortic tortuosity/ectasia. There is diffuse elevation of the interstitium. This could be secondary to mild pulmonary vascular congestion or an interstitial inflammatory process. Clinical and radiographic follow-up is recommended.[ IMPRESSION: Diffuse elevation of the interstitium. This could be secondary to mild pulmonary vascular congestion, or an interstitial inflammatory process. Clinical and radiographic follow-up is recommended Electronically signed by: Dominic Darling M.D. 05/16/2016 6:54 AM Dictated Date/Time: 05/16/2016 6:53 AM
[2016-05-16] MEDS ORDERED: MAGNESIUM SULFATE 1GM / D5W 1 GM in PREMIXED IN D5W 100 ML IV STA (07:05)
[2016-05-16] MEDS ORDERED: POTASSIUM CHLR 10 MEQ / WTR 10 MEQ in PREMIXED WATER 100 ML IV STA (07:05)
[2016-05-16] MEDS ORDERED: BISACODYL 10 MG SUPP PR PRN (07:15)
[2016-05-16] MEDS ORDERED: ACETAMINOPHEN 325 MG TAB PO PRN (07:15)
[2016-05-16] MEDS ORDERED: IPRATROPIUM BROMIDE/ALBUTEROL respimat INH INH PRN (07:15)
[2016-05-16] MEDS ORDERED: MAGNESIUM SULFATE 1GM / D5W 1 GM BAG ONE (07:19)
[2016-05-16] MEDS ORDERED: POTASSIUM CHLORIDE 10 MEQ / 100ML WTR IV ONE (07:20)
--- NOTE | 2016-05-16 08:17 | HISTORY & PHYSICAL EXAMINATION ---
DATE OF ADMISSION: 05/16/2016 PRIMARY CARE PHYSICIAN: Dr. Meyers. CHIEF COMPLAINT: Increasing shortness of breath and change in mental status since this morning. HISTORY OF PRESENT COMPLAINT: He is a 75-year-old male with significant past medical history including severe stroke about 19 years ago with right-sided hemiparesis and continuous deteriorating of the condition, depression, polymyalgia rheumatica, monoclonal gammopathy, hypertension, hypothyroidism, chronic pain syndrome. Apparently was noted to have vomiting and diarrhea in [facility] since yesterday. Early this morning, he was noted to have increasing shortness of breath and change in his mental status. From that point, he was transferred to [facility] ER for further evaluation. No fever, chills or rigors, and no loss of consciousness, but did have more shortness of breath. The history was taken from and in the ER upon investigation showed a white count of 13.91, potassium of 3.1, and chest x-ray did show evidence of probable aspiration pneumonia. From that point, he was admitted to telemetry unit for continuation of care. He required BiPAP to maintain saturation in the Emergency Room. PAST MEDICAL HISTORY: Significant for history of stroke about 19 years ago with right hemiplegia with pain all over the body, depression, polymyalgia rheumatica, monoclonal gammopathy, hypertension, hypothyroidism. PAST SURGICAL HISTORY: Significant for recent left knee surgery last Saturday, laparoscopic cholecystectomy, removal of partial small intestine for ventral hernia. FAMILY HISTORY: Father had diabetes, father had heart disease. Mother had heart disease. Father had a stroke. SOCIAL HISTORY: He is . He used to live with his before he went to [facility]. He does not smoke and does not drink. He is mobile with a walker and his activity of daily living is limited and needs help. ALLERGY: TO IODINATED CONTRAST MEDIA. MEDICATIONS: He has been on Tylenol 650 mg q. 4 hourly as needed, aspirin 81 mg daily, bisacodyl 10 mg suppository as needed, vitamin B12 1000 mcg daily, docusate sodium 100 mg b.i.d., donepezil 5 mg at night, Cymbalta 60 mg at night, Lovenox 40 mg subcu daily, Neurontin 600 mg 3 times daily, Hyzaar 25/100 mg 1 tablet daily, Combivent Respules 1 puff q.i.d. as needed, levothyroxine 25 mcg 3 times a week, levothyroxine 50 mcg 4 times a week, Cozaar 100 mg daily, Dolophine 30 mg at bedtime, methadone 40 mg in the morning, nortriptyline 10 mg at night, Zofran 4 mg q. 6 hourly p.r.n., Tamiflu 75 mg daily, he does not take it anymore, oxycodone 5/325 one tablet q. 4 hourly p.r.n., Protonix 40 mg daily, prednisone 5 mg b.i.d., senna 1 tablet daily, Lumigan 1 drop OPB at night, vitamin D 2000 units daily, lactobacillus 1 capsule b.i.d., VESIcare 10 mg daily, lidocaine patch 2 patches externally daily. REVIEW OF SYSTEMS: Review of systems is not possible due to poor communication. PHYSICAL EXAMINATION: GENERAL: In the Emergency Room, he was on BiPAP, moderate shortness of breath at rest, but no acute pain. VITAL SIGNS: Temperature 39.3, pulse 110, blood pressure 110/62, saturation 97% on BiPAP on 40% FiO2. HEENT: Unremarkable. NECK: Supple. CHEST: Decreased breath sounds with right basilar crackles. HEART: S1, S2, regular, no murmur. ABDOMEN: Distended, soft, nontender. Bowel sounds present. EXTREMITIES: Trace edema bilaterally, more on the left, with extensive bruising involving the knee and the upper part of the leg on the left side. CENTRAL NERVOUS SYSTEM: Alert, awake, not communicating, no movement of the right side at all, minimal movement of the left-sided extremities. LABORATORY DATA: Noted today white count was 13.91, H\T\H 10.6/32.3, platelet was 318. Blood gas: pH 7.44, pCO2 of 43, pO2 of 106, 100% FiO2. Sodium 139, potassium 3.1, chloride 100, carbon dioxide 28, BUN 26, creatinine 1.40, random glucose 154, lactic acid was 2.34, magnesium 1.5. LFTs unremarkable. Troponin less than 0.015. INR 2.0. UA examination unremarkable. Flu negative for A and B. EKG, was in sinus rhythm, rate of 108 per minute, right bundle-branch block with nonspecific ST-T wave changes. Compared with prior EKG, the right bundle-branch block seems pronounced. CT of the head today, old post-infarct changes, no acute findings. Chest x-ray not reported yet, seems to have bibasilar opacities, pneumonia cannot be excluded. IMPRESSION AND PLAN: 1. Increasing shortness of breath with recent vomiting and diarrhea, likely to have aspiration. The patient received IV vancomycin and Zosyn. We will continue with Zosyn and clindamycin to cover Aerobes for now. Blood culture has been taken. Aspiration precautions. 2. History of cerebrovascular accident with right-sided paralysis. The patient has been deteriorating for the last 1 year. No new stroke on CAT scan. He will be admitted to telemetry unit.Will ask for Speech therapy evaluation. 3. History of sleep apnea, was on BiPAP before. The patient is requiring BiPAP right now, we will continue with that. He will get nebulized bronchodilators as well and a small dose of Solu-Medrol IV. 4. Hypertension. Blood pressure seems to be stable at this time. Continue with his current medication. 5. Hypothyroidism. Continue with replacement. 6. Depression, seems to be stable, may have dementia. Continue with Aricept. 7.Chronic pain syndrome -since CVA 19 years ago.Has been on high dose Methadone. Will continue that for now.Hold Oxycodon 8. Gastrointestinal prophylaxis with Protonix. 9. Deep venous thrombosis prophylaxis with Lovenox. 10. Code status discussed with , he will be a DNR. In my clinical judgment, the beneficiary meets criteria as per CMS for 2-midnight stay in the hospital. MTDD
[2016-05-16] MEDS ORDERED: PIPERACILL/TAZOBAC CONSULT ACTIVE PRN (08:30)
[2016-05-16] MEDS ORDERED: LOSARTAN/HCTZ 50-12.5 EA TAB PO SCH (09:00)
[2016-05-16] MEDS ORDERED: LACTOBACILLUS ACIDOPHILUS (FLORANEX) TAB PO SCH (09:00)
[2016-05-16] MEDS ORDERED: SENNA 8.6 MG TAB PO SCH (09:00)
[2016-05-16] MEDS: DOCUSATE SODIUM 100 MG CAP PO SCH ×2 (09:00→19:43)
[2016-05-16] MEDS ORDERED: CYANOCOBALAMIN 500 MCG TAB (VIT B-12) PO SCH (09:00)
[2016-05-16] MEDS ORDERED: ENOXAPARIN 40 MG/0.4 ML SYR SQ SCH (09:00)
[2016-05-16] MEDS ORDERED: PANTOprazole SOD 40 MG TAB PO SCH (09:00)
[2016-05-16] MEDS ORDERED: ASPIRIN 81 MG ECTAB PO SCH (09:00)
--- NOTE | 2016-05-16 09:31 | ORTHOPEDIC CONSULTATION ---
DATE OF CONSULTATION: 05/16/2016 DATE OF CONSULTATION: 05/16/2016. HISTORY OF PRESENT ILLNESS: The patient is 1 week out from a left total knee replacement and complicated medical patient who is now admitted for change in mental status, nausea, vomiting and possible aspiration and fever. He is seen lying in the bed. He was out at [facility] and was sick yesterday and threw up and there was a question of him aspirating, also has some diarrhea. He does have a remote history of having C. diff as well. He recently in the fall had Varicella zoster and his surgery was canceled for several months based on that. He had significant knee pain and requested knee replacement. Of note, is that he is DNR, both he and his are very comfortable with that. PAST MEDICAL HISTORY: Remarkable for multiple strokes. His thinks he has had many TIAs in the past and has a history of depression, polymyalgia rheumatica, monoclonal gammopathy, hypertension, and hypothyroid. PAST SURGICAL HISTORY: Remarkable for left total knee replacement, shoulder surgery in the past, laparoscopic cholecystectomy, ventral hernia repair, small bowel resection. FAMILY HISTORY: Remarkable for diabetes, heart disease and CVA. SOCIAL HISTORY: Reveals he is and lives with his . He recently was in [facility]. ALLERGIES: IODINE CONTRAST MEDIA. Med Rec is evaluated. Please see that list. REVIEW OF SYSTEMS: Not possible due to his change in mental status. PERTINENT PHYSICAL EXAMINATION: Orthopedic reveals a well-healing left total knee replacement incision, has expected bruising. There is no sign of any issue there with respect to the appearance of the wound or with drainage. His postop x-ray was excellent. At this point in time would not repeat that. His knee is reduced and stable. LABORATORY DATA: Reviewed. CT scan, chest x-rays reviewed. ASSESSMENT: Recent history of left total knee replacement. At this point in time that is not his issue medical perspective. Suggest to treat the wound appropriately with counter support with MOISES stocking and ABD over his rodney. SCDs for DVT prophylaxis, anticoagulation per minute recommendations based on medical stability. Antibiotics per medicine. With respect to his CVAs, his CAT scan does not reveal any new stroke. His hypertension seems to be controlled. His thyroid replacement is controlled. His chronic pain has been managed with methadone. I will leave that up to medicine. CODE STATUS IS DNR. This was also discussed in person with his in the holding area and the waiting room today. They are very comfortable with that. Plan is to just observe from an orthopedic perspective at this point in time.
[2016-05-16] MEDS: CLINDAMYCIN IV 300 MG in DEXTROSE 5% 50ML 50 ML IV SCH ×2 (10:33→17:00)
[2016-05-16] MEDS: GABAPENTIN 300 MG CAP PO SCH ×3 (10:33→19:42)
[2016-05-16] MEDS: METHYLPREDNISOLONE IV 40 MG in SYRINGE 0 ML IV SCH ×3 (10:33→19:40)
[2016-05-16] MEDS: METHADONE HCL 10 MG TAB PO SCH ×2 (10:35→22:00)
[2016-05-16] MEDS: PIPERACILL/TAZOBAC IV 4.5 GM in DEXTROSE 5% 100ML 100 ML IV SCH ×2 (12:18→22:01)
[2016-05-16] MEDS: ONDANSETRON INJ 2 MG/ML 2 ML VIAL IV. SCH ×2 (14:04→17:00)
[2016-05-16] MEDS: SODIUM CHLORIDE 0.9% 1000ML 1,000 ML IV SCH ×2 (14:04→22:01)
[2016-05-16] MEDS: WARFARIN SOD 4 MG TAB PO SCH (16:20)
[2016-05-16] MEDS: NORTRIPTYLINE HCL 10 MG CAP PO SCH (21:00)
[2016-05-16] MEDS ORDERED: CHOLECALCIFEROL 1000 INTER.UNIT TAB PO SCH (21:00)
[2016-05-16] MEDS ORDERED: ALBUT/IPRATROP 3MG/0.5MG NEB 3 ML VIAL INH PRN (21:30)
--- NOTE | 2016-05-16 21:42 | Progress Note ---
Medicine Progress Note Date & Time of Visit: May 16, 2016 at 13:25. Subjective Pt altered and unresponsive, on BIPAP mask and breathing approx 28 times per minute. Scheduled zofran Minimized PO meds while on BIPAP Cont Zosyn and Clinda Added IVF at 1250cc/hr (insensible losses 2/2 diaphoresis and mouth-breathing) No BM since admission this morning but reports of diarrhea Cont BIPAP until work of breathing goes down Extensive bruising in the right leg s/p surgery On warfarin for DVT prophylaxis -discussed with Ortho PA and bruising is expected. OK to cont warfarin at this time. Promise to be removed by Ortho on 05/24 Ortho PA reports speaking with rehab staff who state the patient has not been participating in rehab since his surgery last week. Re-evaluated later and is off BIPAP and satting well on 4L via NC. Objective Last 8 Hrs Date Time Temp Pulse Resp B/P Pulse Ox O2 Delivery O2 Flow Rate FiO2 05/16/16 12:23 96 BiPAP 15.0 40 05/16/16 12:13 38.4 99 28 115/74 96 BiPAP 40 05/16/16 09:31 99 BiPAP 40 05/16/16 08:43 110 32 114/62 99 05/16/16 08:42 39.0 05/16/16 08:41 111 32 114/64 100 BiPAP 40 05/16/16 08:30 38.1 103 28 102/66 05/16/16 07:27 107 05/16/16 06:03 110 36 112/62 97 BiPAP 05/16/16 05:34 113 98 40 05/16/16 05:28 110 36 99/59 97 BiPAP Physical Exam: GEN: obese, diaphoretic, in some respiratory distress, BIPAP mask in place, opens eyes to physical stimuli and appears to come to but then falls asleep again. HEENT: NC/AT, normal sclerae, pupils equal bilaterally CARDIO: reg rate, S1/2 heard without m/g/r LUNGS: CTA but exam was limited as patient was unable to move or cooperate. ABD: soft, non-tender, non-distended, no rebound or guarding EXTREMITY: RP and DP palpable 2+ bilat, no LE swelling or edema, extremities are warm and well-perfused. Right leg anterior incision closed with promise, not draining and is intact without surrounding erythema. Extensive bruising noted all along the L lower leg/calf area. TTP and withdrawal when I tried to examine his Right arm or leg. Pt was resistant to me moving his left arm and withdrew when I examined his left leg, also. NEURO: difficult to assess as he is altered and withdrawing to pain MUSC: difficult to assess as he is altered and withdrawing to pain SKIN: warm and diaphoretic Laboratory Results: Last 24 Hours Test 05/16/16 05:04 05/16/16 05:06 05/16/16 05:35 05/16/16 06:00 White Blood Count 13.91 K/uL Red Blood Count 4.04 M/uL Hemoglobin 10.6 g/dL Hematocrit 32.3 % Mean Corpuscular Volume 80.0 fL Mean Corpuscular Hemoglobin 26.2 pg Mean Corpuscular Hemoglobin Concent 32.8 g/dl Platelet Count 318 K/uL Mean Platelet Volume 10.0 fL Neutrophils (%) (Auto) 86.7 % Lymphocytes (%) (Auto) 6.1 % Monocytes (%) (Auto) 4.2 % Eosinophils (%) (Auto) 1.8 % Basophils (%) (Auto) 0.1 % Neutrophils # (Auto) 12.05 K/uL Lymphocytes # (Auto) 0.85 K/uL Monocytes # (Auto) 0.59 K/uL Eosinophils # (Auto) 0.25 K/uL Basophils # (Auto) 0.02 K/uL RDW Standard Deviation 44.5 fL RDW Coefficient of Variation 15.2 % Immature Granulocyte % (Auto) 1.1 % Immature Granulocyte # (Auto) 0.15 K/uL Nucleated RBC Absolute Count (auto) 0.07 K/uL Nucleated Red Blood Cells % 0.5 % Prothrombin Time 21.8 SECONDS Prothromb Time International Ratio 2.0 Arterial Blood pH 7.44 Arterial Blood Partial Pressure CO2 43 mmHg Arterial Blood Partial Pressure O2 106 mm/Hg Arterial Blood HCO3 29 mmol/L Arterial Blood Oxygen Saturation 97.7 % Arterial Blood Base Excess 3.9 mEq/L Arterial Blood Gas Delivery 100% Quan Test POSITIVE Sodium Level 139 mmol/L Potassium Level 3.1 mmol/L Chloride Level 100 mmol/L Carbon Dioxide Level 28 mmol/L Anion Gap 11.0 mmol/L Blood Urea Nitrogen 26 mg/dl Creatinine 1.40 mg/dl Est Creatinine Clear Calc Drug Dose 64.1 ml/min Estimated GFR () 56.6 Estimated GFR (Non- 48.8 BUN/Creatinine Ratio 18.8 Random Glucose 154 mg/dl Calcium Level 8.6 mg/dl Magnesium Level 1.5 mg/dl Total Bilirubin 0.7 mg/dl Direct Bilirubin 0.2 mg/dl Aspartate Amino Transf (AST/SGOT) 25 U/L Alanine Aminotransferase (ALT/SGPT) 22 U/L Alkaline Phosphatase 82 U/L Total Creatine Kinase 153 U/L Creatine Kinase MB 5.0 ng/ml Creatine Kinase MB Ratio 3.3 Troponin I < 0.015 ng/ml Pro-B-Type Natriuretic Peptide 119 pg/ml Total Protein 7.5 gm/dl Albumin 2.7 gm/dl Bedside Lactic Acid Venous 2.34 mmol/L Urine Color DK YELLOW Urine Appearance CLEAR Urine pH 5.0 Urine Specific [place] 1.020 Urine Protein NEG Urine Glucose (UA) NEG Urine Ketones NEG Urine Occult Blood NEG Urine Nitrite NEG Urine Bilirubin NEG Urine Urobilinogen NEG Urine Leukocyte Esterase NEG Urine WBC (Auto) /hpf Urine RBC (Auto) /hpf Urine Hyaline Casts (Auto) /lpf Urine Epithelial Cells (Auto) /lpf Urine Bacteria (Auto) Urine RBC 0-4 /hpf Urine WBC 0 /hpf Urine Epithelial Cells 0-5 /lpf Urine Bacteria NEG Urine Mucus PRESENT Influenza Type A Antigen Neg for Influ A Influenza Type B Antigen Neg for Influ B Test 05/16/16 13:21 Date/Time Source Procedure Growth Status 05/16/16 05:04 Blood Blood Culture Pending Received 05/16/16 04:50 Blood Blood Culture Pending Received Assessment & Plan 1. Acute hypoxia 2/2 pneumonia likely 2/2 aspiration with h/o vomiting and stroke with residual deficits. Desatting on nasal canula, improved on BIPAP. Cont Clinda and Zosyn at this time. Blood cultures pending. Pt cannot cooperate for a sputum culture. Aspiration precautions and many PO meds were minimized in setting of BIPAP. Antiemetics were scheduled to prevent further vomiting/aspiration in BIPAP mask. Met sepsis criteria. Fluids were started for this and insensible losses as he was diaphoretic and mouth-breathing with a h/o recent vomiting and diarrhea. Repeat lactate was <2. Cont Dupnebs. Hold steroids at this time. 2. Acute gastroenteritis-likely community-acquired infection as patient lives in a group home and this has been circulating. Cont supportive care. Stool studies. 3. post-operative state s/p L total knee replacement one week ago. [place] in place-to be taken out by Ortho as outpatient on 05/24. Cont ABD over wound tucked into TEDs with SCDs overlying. Cont warfarin for DVT prophylaxis despite extensive ecchymosis as this is expected. Goal INR 1.8-2.2. Daily INR ordered while inpatient. Ortho to observe only at this point. Hold ASA 81mg while on warfarin and with extensive ecchymosis. 4. History of cerebrovascular accident with right-sided paralysis. The patient has been deteriorating for the last 1 year. No new stroke on CAT scan. Speech eval ordered. 5. Hypertension-stable, held PO Hyzaar while nautious and on BIPAP. May restart in am if creatinine improves. 6. MINDY-mild likely 2/2 dehydration with recent AGE symptoms. IVF going and follow BMP in am. 7. Hypothyroidism. Continue with replacement. 8. Depression, seems to be stable, may have dementia. Continue with Aricept/ Cymbalta. 7. Chronic pain syndrome -since CVA 19 years ago.Has been on high dose Methadone. Added home percocet back, also. 8. Gastrointestinal prophylaxis with Protonix. Diet-heart healthy DVT prophy-Warfarin/SCDs/TEDs Dispo-uncertain as not clinically stable DO [facility] Hospital[facility] Consultants: Ortho Current Inpatient Medications: Current Inpatient Medications Medications (Trade) Dose Ordered Sig/Milka Route Start Time Stop Time Status Last Admin Dose Admin Acetaminophen (Tylenol Tab) 650 mg Q4 PRN PO 05/16/16 07:15 06/15/16 07:14 Aspirin (Ecotrin Tab) 81 mg QAM PO 05/16/16 09:00 06/15/16 08:59 05/16/16 10:33 81 MG Bisacodyl (Dulcolax Supp) 10 mg Q24H PRN MA 05/16/16 07:15 06/15/16 07:14 Cyanocobalamin (Vitamin B-12 Tab) 1,000 mcg QAM PO 05/16/16 09:00 06/15/16 08:59 05/16/16 10:33 1,000 MCG Docusate Sodium (coLACE CAP) 100 mg BID PO 05/16/16 09:00 06/15/16 08:59 Donepezil HCl (Aricept Tab) 5 mg HS PO 05/16/16 21:00 06/15/16 20:59 Duloxetine HCl (Cymbalta Cap) 60 mg HS PO 05/16/16 21:00 06/15/16 20:59 Gabapentin (Neurontin Cap) 600 mg TID PO 05/16/16 09:00 06/15/16 08:59 05/16/16 10:33 600 MG HCTZ/Losartan Potassium (Hyzaar 50-12.5 Tab) 1 tab QAM PO 05/16/16 09:00 06/15/16 08:59 05/16/16 10:33 1 TAB Albuterol/ Ipratropium (Combivent Respimat Inh) 1 puffs QID PRN INH 05/16/16 07:15 06/15/16 07:14 Methadone HCl (Dolophine Tab) 30 mg HS PO 05/16/16 21:00 05/30/16 20:59 Methadone HCl (Dolophine Tab) 40 mg QAM PO 05/16/16 09:00 05/30/16 08:59 05/16/16 10:35 40 MG Nortriptyline HCl (Pamelor Cap) 10 mg HS PO 05/16/16 21:00 06/15/16 20:59 Pantoprazole Sodium (Protonix Tab) 40 mg DAILY PO 05/16/16 09:00 06/15/16 08:59 05/16/16 10:33 40 MG Senna (Senokot Tab) 8.6 mg DAILY PO 05/16/16 09:00 06/15/16 08:59 Bimatoprost (Lumigan 0.01%) 1 drops HS OPB 05/16/16 21:00 06/15/16 20:59 Cholecalciferol (Vitamin D Tab) 2,000 inter.unit QPM PO 05/16/16 21:00 06/15/16 20:59 Lactobacillus Acidophilus (Floranex Tab) 1 tab BID PO 05/16/16 09:00 06/15/16 08:59 05/16/16 10:33 1 TAB Miscellaneous Information (Order Awaiting Action) 1 ea QS N/A 05/16/16 11:00 06/15/16 10:59 Levothyroxine Sodium 75 mcg 75 mcg DAILYBB PO 05/17/16 06:00 06/16/16 06:59 Piperacillin Sod/ Tazobactam Sod 4.5 gm/Dextrose 120 ml @ 30 mls/hr Q8H IV 05/16/16 12:00 05/23/16 11:59 05/16/16 12:18 30 MLS/HR Clindamycin Phosphate 300 mg/ Dextrose 52 ml @ 100 mls/hr Q8@0200,1000,1800 IV 05/16/16 10:00 05/23/16 09:59 05/16/16 10:33 100 MLS/HR Methylprednisolone Sodium Succinate/ Syringe (Solu-Medrol IV/ Syringe) 0.64 ml @ 1.5 mls/min TID IV 05/16/16 09:30 06/15/16 09:29 05/16/16 10:33 1.5 MLS/MIN Piperacillin Sod/ Tazobactam Sod (Consult) 1 ea UD PRN N/A 05/16/16 08:30 06/15/16 08:29 Warfarin Sodium (Coumadin Tab) 4 mg DAILY@16 PO 05/16/16 16:00 06/15/16 15:59
[2016-05-16] MEDS ORDERED: OXYCODONE/ACETAMINOPHEN 5-325 TAB PO PRN (21:45)
[2016-05-16] MEDS: BIMATOPROST 0.01% OP SOLN 2.5 ML BTL OPB SCH (22:01)
[2016-05-17] MEDS: ONDANSETRON INJ 2 MG/ML 2 ML VIAL IV. SCH ×4 (00:33→20:02)
[2016-05-17] MEDS: CLINDAMYCIN IV 300 MG in DEXTROSE 5% 50ML 50 ML IV SCH ×3 (02:00→19:58)
[2016-05-17 02:55] VITALS: BP 148/72; PULSE 88; TEMP 36.7; O2SAT 94
[2016-05-17] MEDS: PIPERACILL/TAZOBAC IV 4.5 GM in DEXTROSE 5% 100ML 100 ML IV SCH ×3 (04:30→20:00)
[2016-05-17] MEDS: LEVOTHYROXINE 75 MCG TAB PO SCH (05:59)
[2016-05-17 07:15] LABS: BASO % 0.1 %; BASO ABS # 0.01 K/uL (0-0.2); HEMATOCRIT 27.6 % (42-52); IG% 0.5 %; LYMPH % 4.4 %; LYMPH ABS # 0.66 K/uL (1.2-3.4); MEAN CELL VOLUME 80.5 fL (80-100); MEAN CORPUSCULAR HEMOGLOBIN 25.9 pg (25-34); MEAN CORPUSCULAR HGB CONC 32.2 g/dl (32-36); MONO % 3.6 %; NEUT % 91.4 %; PLATELET COUNT 267 K/uL (130-400); RED BLOOD COUNT 3.43 M/uL (4.7-6.1)
[2016-05-17 07:21] VITALS: BP 152/78; PULSE 84; TEMP 36.3; O2SAT 91
[2016-05-17 07:26] LABS: PROTHROMBIN TIME (PATIENT) 22.1 SECONDS (9.0-12.0)
[2016-05-17 07:36] LABS: COMPLETE YES
[2016-05-17 07:38] LABS: BUN/CREATININE RATIO 21.5 (10-20); CALCIUM 8.2 mg/dl (8.5-10.1); CREATININE 1.2 mg/dl (0.60-1.40); MAGNESIUM 2.4 mg/dl (1.8-2.4); POTASSIUM 3.5 mmol/L (3.5-5.1)
[2016-05-17] MEDS: GABAPENTIN 300 MG CAP PO SCH ×3 (07:55→20:05)
[2016-05-17] MEDS: DOCUSATE SODIUM 100 MG CAP PO SCH ×2 (07:55→20:00)
[2016-05-17] MEDS: METHADONE HCL 10 MG TAB PO SCH ×2 (08:50→20:31)
[2016-05-17] MEDS: PANTOprazole INJ 40 MG in SYRINGE 0 ML IV SCH (10:26)
[2016-05-17 10:56] VITALS: BP 126/73; PULSE 78; TEMP 36.7; O2SAT 91
--- NOTE | 2016-05-17 12:14 | Clinical Documentation Query ---
QUERY 1 OF [address] SINHA, In your clinical opinion is this patient being managed for: (x ) Acute respiratory failure with hypoxia, POA ( ) Other explanation of clinical findings (Please Explain) ( ) Unable to determine (Please Define) ( ) Need to Discuss ( ) Not Agree The medical record reflects the following clinical findings, treatment, and risk factors. Clinical Indicators:75 yo male presenting with persistent dyspnea. Resp rate 36, O2 sat 98% on nonrebreather mask Treatment: nonrebreather mask advanced to BIPAP, CXR, IV vancomycin, IV zosyn, IV clindamycin, IV fluids, tele, Risk Factors: sepsis, aspiration pneumonia QUERY 2 OF 2 In your clinical opinion is this patient being managed for: ( x ) Encephalopathy/Septic encephalopathy ( ) Other explanation of clinical findings (Please Explain) ( ) Unable to determine (Please Define) ( ) Need to Discuss ( ) Not Agree The medical record reflects the following clinical findings, treatment, and risk factors. Clinical Indicators: ER documentation indicates with reporting pt is more confused than baseline. Further documentation noted on nursing note 05/17 indicates pt now alert and oriented Treatment: O2 support/BIPAP, IV zosyn, IV vancomycin, 500 cc NSS bolus, IV clindamycin, head CT Risk Factors: sepsis, aspiration pneumonia Please clarify and document your clinical opinion in the progress notes and discharge summary. Terms such as "probable", "suspected", "likely", "questionable", "possible", or "still to be ruled out" are acceptable. IF IN AGREEMENT, YOU MUST DOCUMENT ABOVE DIAGNOSTIC STATEMENT IN DAILY PROGRESS NOTES AND DISCHARGE SUMMARY. This document is not part of the patient's record. Thank You, Karina Hancock, JEAN CLAUDE [phone]
[2016-05-17 14:35] VITALS: BP 144/70; PULSE 83; TEMP 36.6; O2SAT 95
[2016-05-17 16:00] VITALS: O2SAT 95
[2016-05-17] MEDS: WARFARIN SOD 4 MG TAB PO SCH (16:22)
--- NOTE | 2016-05-17 17:53 | PROGRESS NOTE ---
DATE: 05/17/2016 The patient is doing much better. He is alert, is conversant. His vital signs are stable. He is afebrile. C. diff toxin is negative. Blood cultures are pending. Lower extremity orthopedically is without any new issues. ASSESSMENT: Continue medical management per medicine. We will follow peripherally orthopedically. Needs an appointment in about a week or so to get his rodney out if he gets discharged.
[2016-05-17] MEDS: DONEPEZIL HCL 5 MG TAB PO SCH (20:04)
[2016-05-17] MEDS: DULOXETINE HCL 60 MG CAP PO SCH (20:06)
[2016-05-17] MEDS: NORTRIPTYLINE HCL 10 MG CAP PO SCH (20:07)
[2016-05-17] MEDS: BIMATOPROST 0.01% OP SOLN 2.5 ML BTL OPB SCH (20:32)
[2016-05-17] MEDS ORDERED: ONDANSETRON INJ 2 MG/ML 2 ML VIAL IV. PRN (23:39)
--- NOTE | 2016-05-17 23:48 | Progress Note ---
Medicine Progress Note Date & Time of Visit: May 17, 2016 at 10:53. Subjective Up to commode this morning-one episode of diarrhea, and did only have coffee for breakfast Appears alert and appropriate and doesn't remember much from rehab over the past week Doesn't remember nausea vomiting or diarrhea Denies coughing, fevers, chills Reports some pain in his L knee after surgery Reports chronic nerve pain that is long-term and managed with methadone. Objective Last 8 Hrs Date Time Temp Pulse Resp B/P Pulse Ox O2 Delivery O2 Flow Rate FiO2 05/17/16 08:00 Nasal Cannula 2.0 05/17/16 07:21 36.3 84 18 152/78 91 2.0 05/17/16 04:00 Nasal Cannula 4.0 05/17/16 02:55 36.7 88 18 148/72 94 Nasal Cannula 4.0 Physical Exam: GEN: obese, no acute distress, not on oxygen HEENT: NC/AT, normal sclerae, pupils equal bilaterally CARDIO: reg rate, S1/2 heard without m/g/r LUNGS: CTA bilaterally without crackles, rales or wheezes ABD: soft, non-tender, non-distended, no rebound or guarding, +BS EXTREMITY: RP and DP palpable 2+ bilat, no LE swelling or edema, extremities are warm and well-perfused. Right leg anterior incision closed with promise, not draining and is intact without surrounding erythema. Extensive bruising noted all along the L lower leg/calf area. Moves all extremities equally today. Non tender to palpation. L elbow pain with certain movements, small abrasion over L olecranon process. No TTP. NEURO: Sensation decreased on right upper and lower extremity, otherwise no focal deficits are noted. Speech and swallow capabilities intact MUSC: 5/5 throughout, except cannot dorsiflex/plantarflex R foot well. SKIN: warm and dry wound and bruising as above. Laboratory Results: Last 24 Hours Test 05/16/16 14:06 05/17/16 06:35 Lactic Acid Level 1.3 mmol/L White Blood Count 14.90 K/uL Red Blood Count 3.43 M/uL Hemoglobin 8.9 g/dL Hematocrit 27.6 % Mean Corpuscular Volume 80.5 fL Mean Corpuscular Hemoglobin 25.9 pg Mean Corpuscular Hemoglobin Concent 32.2 g/dl Platelet Count 267 K/uL Mean Platelet Volume 10.0 fL Neutrophils (%) (Auto) 91.4 % Lymphocytes (%) (Auto) 4.4 % Monocytes (%) (Auto) 3.6 % Eosinophils (%) (Auto) 0.0 % Basophils (%) (Auto) 0.1 % Neutrophils # (Auto) 13.63 K/uL Lymphocytes # (Auto) 0.66 K/uL Monocytes # (Auto) 0.53 K/uL Eosinophils # (Auto) 0.00 K/uL Basophils # (Auto) 0.01 K/uL RDW Standard Deviation 46.1 fL RDW Coefficient of Variation 15.6 % Immature Granulocyte % (Auto) 0.5 % Immature Granulocyte # (Auto) 0.07 K/uL Red Blood Cell Morphology Unremarkable Prothrombin Time 22.1 SECONDS Prothromb Time International Ratio 2.0 Sodium Level 141 mmol/L Potassium Level 3.5 mmol/L Chloride Level 105 mmol/L Carbon Dioxide Level 28 mmol/L Anion Gap 8.0 mmol/L Blood Urea Nitrogen 26 mg/dl Creatinine 1.20 mg/dl Est Creatinine Clear Calc Drug Dose 74.7 ml/min Estimated GFR () 68.1 Estimated GFR (Non- 58.8 BUN/Creatinine Ratio 21.5 Random Glucose 124 mg/dl Calcium Level 8.2 mg/dl Magnesium Level 2.4 mg/dl Date/Time Source Procedure Growth Status 05/17/16 00:00 Stool C.difficile Toxin B Gene (PCR) Pending Received 05/17/16 00:00 Stool C.difficile Toxin B Gene (PCR) Pending Received Assessment & Plan R elbow pain s/p fOOSH injury at home-PT to evaluate. Outpatient xray performed per patient, but I do not see a record of this. Will order now. 1. Acute hypoxia 2/2 pneumonia likely 2/2 aspiration with h/o vomiting and stroke with residual deficits. Improved today without encephalopathy and he is conversant. He is easily reaching and sipping drinks from the bedside table. Off oxygen completely. Blood cultures pending. Antiemetics were scheduled to prevent further vomiting/aspiration in BIPAP mask. Met sepsis criteria. Fluids were started for this and insensible losses as he was diaphoretic and mouth- breathing with a h/o recent vomiting and diarrhea. IVF stopped 05/17. Cont Duonebs. Cont Clinda and Zosyn at this time. 2. Acute gastroenteritis-likely community-acquired infection as patient lives in a skilled nursing and this has been circulating. Cont supportive care. Stool studies. 3. post-operative state s/p L total knee replacement one week ago. [place] in place-to be taken out by Ortho as outpatient on 05/24. Cont ABD over wound tucked into TEDs with SCDs overlying. Cont warfarin for DVT prophylaxis despite extensive ecchymosis as this is expected. Goal INR 1.8-2.2. Daily INR ordered while inpatient. Ortho to observe only at this point. Hold ASA 81mg while on warfarin and with extensive ecchymosis. 4. History of cerebrovascular accident with right-sided paralysis. The patient has been deteriorating for the last 1 year. No new stroke on CAT scan. Speech eval ordered. 5. Hypertension-stable, held PO Hyzaar but may restart in am if kidney function remains stable. . 6. MINDY-mild likely 2/2 dehydration with recent AGE symptoms. Creat 1.2 this morning after IVF. Restart Hyzaar in am. 7. Hypothyroidism. Continue with replacement. 8. Depression, seems to be stable, may have dementia. Continue with Aricept/ Cymbalta. 7. Chronic pain syndrome -since CVA 19 years ago.Has been on high dose Methadone. Added home percocet back, also. 8. Gastrointestinal prophylaxis with Protonix. 9. R elbow pain after FOOSH injury while at home 3-4 weeks ago. Reviewed records for xray but didn't see this; pt reports no fracture on recent xray. Will discuss this with his . 'Appears to have sprain or tendonitis, which requires supportive care. Diet-heart healthy DVT prophy-Warfarin/SCDs/TEDs Dispo-uncertain as not clinically stable DO [facility] Hospital[facility] Consultants: Ortho Current Inpatient Medications: Current Inpatient Medications Medications (Trade) Dose Ordered Sig/Milka Route Start Time Stop Time Status Last Admin Dose Admin Acetaminophen (Tylenol Tab) 650 mg Q4 PRN PO 05/16/16 07:15 06/15/16 07:14 Future hold Aspirin (Ecotrin Tab) 81 mg QAM PO 05/16/16 09:00 06/15/16 08:59 Future Hold 05/16/16 10:33 81 MG Bisacodyl (Dulcolax Supp) 10 mg Q24H PRN OR 05/16/16 07:15 06/15/16 07:14 Docusate Sodium (coLACE CAP) 100 mg BID PO 05/16/16 09:00 06/15/16 08:59 05/17/16 07:55 100 MG Donepezil HCl (Aricept Tab) 5 mg HS PO 05/16/16 21:00 06/15/16 20:59 Future hold Duloxetine HCl (Cymbalta Cap) 60 mg HS PO 05/16/16 21:00 06/15/16 20:59 Future hold Gabapentin (Neurontin Cap) 600 mg TID PO 05/16/16 09:00 06/15/16 08:59 05/17/16 07:55 600 MG HCTZ/Losartan Potassium (Hyzaar 50-12.5 Tab) 1 tab QAM PO 05/16/16 09:00 06/15/16 08:59 Future Hold 05/16/16 10:33 1 TAB Methadone HCl (Dolophine Tab) 30 mg HS PO 05/16/16 21:00 05/30/16 20:59 05/16/16 22:00 30 MG Methadone HCl (Dolophine Tab) 40 mg QAM PO 05/16/16 09:00 05/30/16 08:59 05/17/16 08:50 40 MG Nortriptyline HCl (Pamelor Cap) 10 mg HS PO 05/16/16 21:00 06/15/16 20:59 05/16/16 21:00 10 MG Bimatoprost (Lumigan 0.01%) 1 drops HS OPB 05/16/16 21:00 06/15/16 20:59 05/16/16 22:01 1 DROPS Miscellaneous Information (Order Awaiting Action) 1 ea QS N/A 05/16/16 11:00 06/15/16 10:59 Levothyroxine Sodium 75 mcg 75 mcg DAILYBB PO 05/17/16 06:00 06/16/16 06:59 05/17/16 05:59 75 MCG Piperacillin Sod/ Tazobactam Sod 4.5 gm/Dextrose 120 ml @ 30 mls/hr Q8H IV 05/16/16 12:00 05/23/16 11:59 05/17/16 04:30 30 MLS/HR Clindamycin Phosphate/Dextrose (Cleocin Iv/D5 50ml) 52 ml @ 100 mls/hr Q8@0200,1000,1800 IV 05/16/16 10:00 05/23/16 09:59 05/17/16 09:16 100 MLS/HR Piperacillin Sod/ Tazobactam Sod (Consult) 1 ea UD PRN N/A 05/16/16 08:30 06/15/16 08:29 Warfarin Sodium 4 mg 4 mg DAILY@16 PO 05/16/16 16:00 06/15/16 15:59 05/16/16 16:20 4 MG Pantoprazole Sodium/Syringe (Protonix Inj/ Syringe) 10 ml @ 5 mls/min DAILY@11 IV 05/17/16 11:00 06/16/16 10:59 05/17/16 10:26 5 MLS/MIN Ondansetron HCl (Zofran Inj) 4 mg Q6 IV. 05/16/16 13:30 06/15/16 13:29 05/17/16 05:59 4 MG Albuterol/ Ipratropium (Duoneb) 3 ml Q4R PRN INH 05/16/16 21:30 06/15/16 21:29 Oxycodone/ Acetaminophen (Percocet 5-325MG Tab) 1 tab Q4H PRN PO 05/16/16 21:45 05/30/16 21:44 05/17/16 00:33 1 TAB Prednisone (PredniSONE TAB) 5 mg BID PO 05/17/16 09:00 06/16/16 08:59 05/17/16 07:58 5 MG
[2016-05-18 00:32] VITALS: BP 164/83; PULSE 71; TEMP 36.7; O2SAT 94
[2016-05-18] MEDS: CLINDAMYCIN IV 300 MG in DEXTROSE 5% 50ML 50 ML IV SCH ×2 (02:29→10:37)
[2016-05-18] MEDS: PIPERACILL/TAZOBAC IV 4.5 GM in DEXTROSE 5% 100ML 100 ML IV SCH ×2 (04:11→11:43)
[2016-05-18] MEDS: LEVOTHYROXINE 75 MCG TAB PO SCH (06:36)
[2016-05-18 07:42] VITALS: BP 168/82; PULSE 77; TEMP 36.9; O2SAT 95
[2016-05-18 08:12] LABS: INR 2.1 (0.9-1.1); PROTHROMBIN TIME (PATIENT) 23.7 SECONDS (9.0-12.0)
[2016-05-18] MEDS: GABAPENTIN 300 MG CAP PO SCH ×3 (08:32→21:13)
[2016-05-18] MEDS: LOSARTAN/HCTZ 50-12.5 EA TAB PO SCH (08:32)
[2016-05-18] MEDS: DOCUSATE SODIUM 100 MG CAP PO SCH ×2 (08:32→20:00)
[2016-05-18] MEDS: METHADONE HCL 10 MG TAB PO SCH ×2 (08:35→21:20)
[2016-05-18 10:15] LABS: MEAN CELL VOLUME 80.1 fL (80-100); MEAN CORPUSCULAR HEMOGLOBIN 26.1 pg (25-34); MEAN CORPUSCULAR HGB CONC 32.6 g/dl (32-36); MEAN PLATELET VOLUME 10.1 fL (7.4-10.4); PLATELET COUNT 282 K/uL (130-400); RED BLOOD COUNT 3.37 M/uL (4.7-6.1); WHITE BLOOD COUNT 11.51 K/uL (4.8-10.8)
[2016-05-18 10:22] LABS: BUN/CREATININE RATIO 21.7 (10-20); CALCIUM 8.5 mg/dl (8.5-10.1); CREATININE 1.1 mg/dl (0.60-1.40); POTASSIUM 3.4 mmol/L (3.5-5.1)
[2016-05-18] MEDS: PANTOprazole INJ 40 MG in SYRINGE 0 ML IV SCH (10:37)
[2016-05-18] MEDS: POTASSIUM CHLORIDE 20 MEQ TABCR PO SCH ×2 (13:54→21:13)
[2016-05-18 16:00] VITALS: BP 181/82; PULSE 75; TEMP 36.6; O2SAT 96
--- NOTE | 2016-05-18 18:07 | DIAGNOSTIC IMAGING REPORT ---
RIGHT ELBOW 3 VIEWS CLINICAL HISTORY: Fall several weeks ago. Persistent right elbow pain. FINDINGS: 3 views of the right elbow are correlated with radiographs of the right forearm dated 04/13/2016. The skeletal structures are osteopenic. There is no radiographic evidence of fracture. The joint spaces appear preserved. There is no joint effusion. Small enthesophytes are noted along the lateral humeral epicondyle. There is minimal spurring seen along the medial aspect of the joint space. The overlying soft tissues are within normal limits. IMPRESSION: 1. There is no radiographic evidence of fracture. 2. Osteopenia and mild degenerative changes above. Electronically signed by: Raoul Covington M.D. 05/18/2016 6:05 PM Dictated Date/Time: 05/18/2016 6:03 PM
--- NOTE | 2016-05-18 18:09 | DIAGNOSTIC IMAGING REPORT ---
RIGHT WRIST 4 VIEWS CLINICAL HISTORY: Wrist pain. Known fracture. EYES: 4 views of the right wrist are compared to study dated 04/13/2016. The skeletal structures are osteopenic. No acute fractures identified. A healing spiral fracture through the midshaft of the fourth metacarpal is unchanged in alignment from previous. There is mild narrowing at the radiocarpal articulation. Advanced arthritic change with bony overgrowth, sclerosis, and mild subluxation is noted at the first carpometacarpal joint. Overlying soft tissue edema has resolved from previous. There is mild atherosclerotic calcification of the regional arteries. IMPRESSION: 1. No significant change in the appearance/alignment of a healing of fourth metacarpal fracture as compared to 04/13/2016. 2. No acute fracture is seen. 3. Osteopenia and arthritic change as above. Electronically signed by: Raoul Covington M.D. 05/18/2016 6:07 PM Dictated Date/Time: 05/18/2016 6:05 PM
[2016-05-18] MEDS: WARFARIN SOD 4 MG TAB PO SCH (21:12)
[2016-05-18] MEDS: AMOXICILLIN/CLAVULANATE TAB 875 MG TAB PO SCH (21:12)
[2016-05-18] MEDS: DONEPEZIL HCL 5 MG TAB PO SCH (21:14)
[2016-05-18] MEDS: NORTRIPTYLINE HCL 10 MG CAP PO SCH (21:14)
[2016-05-18] MEDS: DULOXETINE HCL 60 MG CAP PO SCH (21:15)
[2016-05-18] MEDS: BIMATOPROST 0.01% OP SOLN 2.5 ML BTL OPB SCH (21:21)
--- NOTE | 2016-05-18 22:51 | Progress Note ---
Medicine Progress Note Date & Time of Visit: May 18, 2016 at 16:30. Subjective No issues today No increased work of breathing Denies chest pain REports persistent elbow pain on the right side s/p a FOOSH injury 3-4 weeks ago. Objective Last 8 Hrs Date Time Temp Pulse Resp B/P Pulse Ox O2 Delivery O2 Flow Rate FiO2 05/18/16 12:02 Room Air Physical Exam: GEN: obese, no acute distress, not on oxygen HEENT: NC/AT, normal sclerae, pupils equal bilaterally CARDIO: reg rate, S1/2 heard without m/g/r LUNGS: CTA bilaterally without crackles, rales or wheezes ABD: soft, non-tender, non-distended, no rebound or guarding, +BS EXTREMITY: RP and DP palpable 2+ bilat, no LE swelling or edema, extremities are warm and well-perfused. Right leg anterior incision closed with rodney, not draining and is intact without surrounding erythema. Extensive bruising noted all along the L lower leg/calf area. Moves all extremities equally today. Non tender to palpation. L elbow pain with certain movements, small abrasion over L olecranon process. No TTP. NEURO: Sensation decreased on right upper and lower extremity, otherwise no focal deficits are noted. Speech and swallow capabilities intact MUSC: 5/5 throughout, except cannot dorsiflex/plantarflex R foot well. SKIN: warm and dry wound and bruising as above. Laboratory Results: Last 24 Hours Test 05/18/16 07:45 White Blood Count 11.51 K/uL Red Blood Count 3.37 M/uL Hemoglobin 8.8 g/dL Hematocrit 27.0 % Mean Corpuscular Volume 80.1 fL Mean Corpuscular Hemoglobin 26.1 pg Mean Corpuscular Hemoglobin Concent 32.6 g/dl RDW Standard Deviation 45.7 fL RDW Coefficient of Variation 15.6 % Platelet Count 282 K/uL Mean Platelet Volume 10.1 fL Prothrombin Time 23.7 SECONDS Prothromb Time International Ratio 2.1 Sodium Level 140 mmol/L Potassium Level 3.4 mmol/L Chloride Level 104 mmol/L Carbon Dioxide Level 30 mmol/L Anion Gap 6.0 mmol/L Blood Urea Nitrogen 24 mg/dl Creatinine 1.10 mg/dl Est Creatinine Clear Calc Drug Dose 81.5 ml/min Estimated GFR () 75.7 Estimated GFR (Non- 65.3 BUN/Creatinine Ratio 21.7 Random Glucose 90 mg/dl Calcium Level 8.5 mg/dl Assessment & Plan 75 yoM presented from rehab with increased work of breathing after several episodes of nausea, vomiting and diarrhea at the rehab facility. 1. Acute hypoxia 2/2 possible pneumonia likely 2/2 aspiration with h/o vomiting and stroke with residual deficits. Improved without encephalopathy and he is conversant. He is easily reaching and sipping drinks from the bedside table. Off oxygen completely. Blood cultures negative to date. Antiemetics PRN. Fluids for insensible losses as he was diaphoretic and mouth-breathing with a h/o recent vomiting and diarrhea. IVF stopped 05/17. Cont Duonebs. Cont Clinda and Zosyn at this time-switched to Augmentin on 05/18 2. Acute gastroenteritis-likely community-acquired infection as patient lives in a fdc and this has been circulating--resolved. 3. post-operative state s/p L total knee replacement one week ago. [place] in place-to be taken out by Ortho as outpatient on 05/24. Cont ABD over wound tucked into TEDs with SCDs overlying. Cont warfarin for DVT prophylaxis despite extensive ecchymosis as this is expected. Goal INR 1.8-2.2. Daily INR ordered while inpatient. Ortho to observe only at this point. Hold ASA 81mg while on warfarin and with extensive ecchymosis. 4. R elbow pain s/p FOOSH injury 3-4 weeks ago--no elbow fracture but there is a healing 4th metacarpal fracture present in the hand on wrist xray. Pain on exam is localized to the elbow. Cont pain control and PT to assess when they come tomorrow. 5. History of cerebrovascular accident with right-sided paralysis. The patient has been deteriorating for the last 1 year. No new stroke on CAT scan. Speech eval ordered. 6. Hypertension-stable, held PO Hyzaar but may restart in am if kidney function remains stable. . 7. MINDY-mild likely 2/2 dehydration with recent AGE symptoms. Creat 1.1 this morning after IVF. Restart Hyzaar. 7. Hypothyroidism. Continue with replacement. 8. Depression, seems to be stable, may have dementia. Continue with Aricept/ Cymbalta. 9. Chronic pain syndrome -since CVA 19 years ago.Has been on high dose Methadone. Added home percocet back, also. 10. R elbow pain after FOOSH injury while at home 3-4 weeks ago. No elbow fracture, however, 4th metacarpal fracture is healing. . Diet-heart healthy DVT prophy-Warfarin/SCDs/TEDs Dispo-uncertain as not clinically stable DO Johanny Haney Hospitalist Consultants: Ortho Current Inpatient Medications: Current Inpatient Medications Medications (Trade) Dose Ordered Sig/Milka Route Start Time Stop Time Status Last Admin Dose Admin Acetaminophen (Tylenol Tab) 650 mg Q4 PRN PO 05/16/16 07:15 06/15/16 07:14 Future hold Aspirin (Ecotrin Tab) 81 mg QAM PO 05/16/16 09:00 06/15/16 08:59 Future Hold 05/16/16 10:33 81 MG Bisacodyl (Dulcolax Supp) 10 mg Q24H PRN [place] 05/16/16 07:15 06/15/16 07:14 Docusate Sodium (coLACE CAP) 100 mg BID PO 05/16/16 09:00 06/15/16 08:59 05/18/16 08:32 100 MG Donepezil HCl (Aricept Tab) 5 mg HS PO 05/16/16 21:00 06/15/16 20:59 Future hold 05/17/16 20:04 5 MG Duloxetine HCl (Cymbalta Cap) 60 mg HS PO 05/16/16 21:00 06/15/16 20:59 Future hold 05/17/16 20:06 60 MG Gabapentin (Neurontin Cap) 600 mg TID PO 05/16/16 09:00 06/15/16 08:59 05/18/16 13:54 600 MG HCTZ/Losartan Potassium (Hyzaar 50-12.5 Tab) 1 tab QAM PO 05/16/16 09:00 06/15/16 08:59 Future Hold 05/16/16 10:33 1 TAB Methadone HCl (Dolophine Tab) 30 mg HS PO 05/16/16 21:00 05/30/16 20:59 05/17/16 20:31 30 MG Methadone HCl (Dolophine Tab) 40 mg QAM PO 05/16/16 09:00 05/30/16 08:59 05/18/16 08:35 40 MG Nortriptyline HCl (Pamelor Cap) 10 mg HS PO 05/16/16 21:00 06/15/16 20:59 05/17/16 20:07 10 MG Bimatoprost (Lumigan 0.01%) 1 drops HS OPB 05/16/16 21:00 06/15/16 20:59 05/17/16 20:32 1 DROPS Miscellaneous Information (Order Awaiting Action) 1 ea QS N/A 05/16/16 11:00 06/15/16 10:59 Levothyroxine Sodium 75 mcg 75 mcg DAILYBB PO 05/17/16 06:00 06/16/16 06:59 05/18/16 06:36 75 MCG Piperacillin Sod/ Tazobactam Sod 4.5 gm/Dextrose 120 ml @ 30 mls/hr Q8H IV 05/16/16 12:00 05/23/16 11:59 05/18/16 11:43 30 MLS/HR Clindamycin Phosphate/Dextrose (Cleocin Iv/D5 50ml) 52 ml @ 100 mls/hr Q8@0200,1000,1800 IV 05/16/16 10:00 05/23/16 09:59 05/18/16 10:37 100 MLS/HR Piperacillin Sod/ Tazobactam Sod (Consult) 1 ea UD PRN N/A 05/16/16 08:30 06/15/16 08:29 Warfarin Sodium 4 mg 4 mg DAILY@16 PO 05/16/16 16:00 06/15/16 15:59 05/17/16 16:22 4 MG Pantoprazole Sodium/Syringe (Protonix Inj/ Syringe) 10 ml @ 5 mls/min DAILY@11 IV 05/17/16 11:00 06/16/16 10:59 05/18/16 10:37 5 MLS/MIN Albuterol/ Ipratropium (Duoneb) 3 ml Q4R PRN INH 05/16/16 21:30 06/15/16 21:29 Oxycodone/ Acetaminophen (Percocet 5-325MG Tab) 1 tab Q4H PRN PO 05/16/16 21:45 05/30/16 21:44 05/17/16 00:33 1 TAB Prednisone (PredniSONE TAB) 5 mg BID PO 05/17/16 09:00 06/16/16 08:59 05/18/16 08:33 5 MG Ondansetron HCl (Zofran Inj) 4 mg Q6 PRN IV. 05/17/16 23:39 06/16/16 23:38 HCTZ/Losartan Potassium (Hyzaar 50-12.5 Tab) 2 tab QAM PO 05/18/16 08:00 06/17/16 07:59 05/18/16 08:32 2 TAB Potassium Chloride (Klor-Con Tab) 40 meq Q6H PO 05/18/16 14:00 05/18/16 20:01 05/18/16 13:54 40 MEQ
[2016-05-19] VITALS (10 sets, daily range): BP systolic 126–184; BP diastolic 74–93; PULSE 68–82; TEMP 36.7–36.9; O2SAT 90–97
[2016-05-19] MEDS: LEVOTHYROXINE 75 MCG TAB PO SCH (06:08)
[2016-05-19] MEDS: AMOXICILLIN/CLAVULANATE TAB 875 MG TAB PO SCH ×2 (08:31→16:00)
[2016-05-19] MEDS: LOSARTAN/HCTZ 50-12.5 EA TAB PO SCH (08:32)
[2016-05-19] MEDS: DOCUSATE SODIUM 100 MG CAP PO SCH ×2 (08:32→19:55)
[2016-05-19] MEDS: GABAPENTIN 300 MG CAP PO SCH ×3 (08:33→19:56)
[2016-05-19] MEDS: METHADONE HCL 10 MG TAB PO SCH ×2 (08:35→19:55)
[2016-05-19 08:46] LABS: HEMATOCRIT 29.8 % (42-52); MEAN CELL VOLUME 79.9 fL (80-100); MEAN CORPUSCULAR HEMOGLOBIN 26.3 pg (25-34); MEAN CORPUSCULAR HGB CONC 32.9 g/dl (32-36); MEAN PLATELET VOLUME 8.9 fL (7.4-10.4); PLATELET COUNT 265 K/uL (130-400); RED BLOOD COUNT 3.73 M/uL (4.7-6.1); WHITE BLOOD COUNT 8.54 K/uL (4.8-10.8)
[2016-05-19 08:54] LABS: INR 2.4 (0.9-1.1); PROTHROMBIN TIME (PATIENT) 26.9 SECONDS (9.0-12.0)
[2016-05-19 09:11] LABS: BUN/CREATININE RATIO 19.6 (10-20); CALCIUM 8.7 mg/dl (8.5-10.1); POTASSIUM 3.5 mmol/L (3.5-5.1)
[2016-05-19] MEDS: PANTOprazole INJ 40 MG in SYRINGE 0 ML IV SCH (11:24)
[2016-05-19] MEDS: WARFARIN SOD 2 MG TAB PO SCH (16:00)
--- NOTE | 2016-05-19 18:14 | Progress Note ---
Medicine Progress Note Date & Time of Visit: May 19, 2016 at 14:25. Subjective complained of insomnia-pt unsure what was keeping him up, we discussed ambien for tonight PRN tolerating PO worked with PT today-needs authorization back to rehab--out Mon? metacarpal fracture s/p FOOSH-Ortho consult. Pain perception is very altered as pain is located in elbow but hand has the fracture. Objective Last 8 Hrs Date Time Temp Pulse Resp B/P Pulse Ox O2 Delivery O2 Flow Rate FiO2 05/19/16 09:30 146/84 05/19/16 08:00 Room Air 05/19/16 07:14 36.8 72 20 179/93 91 Room Air Physical Exam: GEN: obese, no acute distress, not on oxygen HEENT: NC/AT, normal sclerae, pupils equal bilaterally CARDIO: reg rate, S1/2 heard without m/g/r LUNGS: CTA bilaterally without crackles, rales or wheezes ABD: soft, non-tender, non-distended, no rebound or guarding, +BS EXTREMITY: RP and DP palpable 2+ bilat, no LE swelling or edema, extremities are warm and well-perfused. Right leg anterior incision closed with promise, not draining and is intact without surrounding erythema. Extensive bruising noted all along the L lower leg/calf area. TEDS in place. Wrist and elbow exam were unremarkable. No hand swelling on the right but some bruising is present. NEURO: Sensation decreased on right upper and lower extremity, otherwise no focal deficits are noted. Speech and swallow capabilities intact MUSC: 5/5 throughout, except cannot dorsiflex/plantarflex R foot well. SKIN: warm and dry wound and bruising as above. Laboratory Results: Last 24 Hours Test 05/19/16 08:34 White Blood Count 8.54 K/uL Red Blood Count 3.73 M/uL Hemoglobin 9.8 g/dL Hematocrit 29.8 % Mean Corpuscular Volume 79.9 fL Mean Corpuscular Hemoglobin 26.3 pg Mean Corpuscular Hemoglobin Concent 32.9 g/dl RDW Standard Deviation 45.0 fL RDW Coefficient of Variation 15.4 % Platelet Count 265 K/uL Mean Platelet Volume 8.9 fL Prothrombin Time 26.9 SECONDS Prothromb Time International Ratio 2.4 Sodium Level 141 mmol/L Potassium Level 3.5 mmol/L Chloride Level 103 mmol/L Carbon Dioxide Level 32 mmol/L Anion Gap 6.0 mmol/L Blood Urea Nitrogen 20 mg/dl Creatinine 1.00 mg/dl Est Creatinine Clear Calc Drug Dose 89.7 ml/min Estimated GFR () 85.0 Estimated GFR (Non- 73.3 BUN/Creatinine Ratio 19.6 Random Glucose 79 mg/dl Calcium Level 8.7 mg/dl Assessment & Plan 75 yoM presented from rehab with increased work of breathing after several episodes of nausea, vomiting and diarrhea at the rehab facility. 1. Acute hypoxia 2/2 possible pneumonia likely 2/2 aspiration with h/o vomiting and stroke with residual deficits. Improved without encephalopathy and he is conversant. He is easily reaching and sipping drinks from the bedside table. Off oxygen completely. Blood cultures negative to date. Antiemetics PRN. Fluids for insensible losses as he was diaphoretic and mouth-breathing with a h/o recent vomiting and diarrhea. IVF stopped 05/17. Cont Duonebs. Cont Clinda and Zosyn at this time-switched to Augmentin on 05/18. Stable, and doing well today. Awaiting rehab placement. 2. Acute gastroenteritis-likely community-acquired infection as patient lives in a fpc and this has been circulating--resolved. 3. post-operative state s/p L total knee replacement one week ago. Promise in place-to be taken out by Ortho as outpatient on 05/24. Cont ABD over wound tucked into TEDs with SCDs overlying. Cont warfarin for DVT prophylaxis despite extensive ecchymosis as this is expected. Goal INR 1.8-2.2. Daily INR ordered while inpatient. Ortho to observe only at this point. Hold ASA 81mg while on warfarin and with extensive ecchymosis. Warfarin decreased to 2mg today for INR 2.4 this am. Possibly affected with abx. 4. History of cerebrovascular accident with right-sided paralysis. The patient has been deteriorating for the last 1 year. No new stroke on CAT scan. Speech eval ordered. Recs to cont aspiration precautions and moist, mech soft diet. No further treatment required. 6. Hypertension-stable, cont Hyzaar 7. MINDY-mild likely 2/2 dehydration with recent AGE symptoms. Resolved 7. Hypothyroidism. Continue with replacement. 8. Depression, seems to be stable, may have dementia. Continue with Aricept/ Cymbalta. 9. Chronic pain syndrome -since CVA 19 years ago.Has been on high dose Methadone. Added home percocet back, also. 10. R elbow pain after FOOSH injury while at home 3-4 weeks ago. No elbow fracture, however, 4th metacarpal fracture is healing. ROM is normal and no pain or swelling noted in R hand. Ortho consulted. Of note, patient kept describing an elbow pain, however, the fracture and pain was actually coming from his hand. With his prior stroke and complex chronic pain syndrome related to this, his perception of pain is very skewed and this is expected. 11. Insomnia last night-Ambien added PRN, may be related to nighttime prednisone dose? Diet-heart healthy,moist, mech soft DVT prophy-Warfarin/SCDs/TEDs Dispo-to rehab once authorization approved. DO Johanny Haney Hospitalist Consultants: Ortho Current Inpatient Medications: Current Inpatient Medications Medications (Trade) Dose Ordered Sig/Milka Route Start Time Stop Time Status Last Admin Dose Admin Acetaminophen (Tylenol Tab) 650 mg Q4 PRN PO 05/16/16 07:15 06/15/16 07:14 Future hold Aspirin (Ecotrin Tab) 81 mg QAM PO 05/16/16 09:00 06/15/16 08:59 Future Hold 05/16/16 10:33 81 MG Bisacodyl (Dulcolax Supp) 10 mg Q24H PRN [place] 05/16/16 07:15 06/15/16 07:14 Docusate Sodium (coLACE CAP) 100 mg BID PO 05/16/16 09:00 06/15/16 08:59 05/19/16 08:32 100 MG Donepezil HCl (Aricept Tab) 5 mg HS PO 05/16/16 21:00 06/15/16 20:59 Future hold 05/18/16 21:14 5 MG Duloxetine HCl (Cymbalta Cap) 60 mg HS PO 05/16/16 21:00 06/15/16 20:59 Future hold 05/18/16 21:15 60 MG Gabapentin (Neurontin Cap) 600 mg TID PO 05/16/16 09:00 06/15/16 08:59 05/19/16 13:43 600 MG HCTZ/Losartan Potassium (Hyzaar 50-12.5 Tab) 1 tab QAM PO 05/16/16 09:00 06/15/16 08:59 Future Hold 05/16/16 10:33 1 TAB Methadone HCl (Dolophine Tab) 30 mg HS PO 05/16/16 21:00 05/30/16 20:59 05/18/16 21:20 30 MG Methadone HCl (Dolophine Tab) 40 mg QAM PO 05/16/16 09:00 05/30/16 08:59 05/19/16 08:35 40 MG Nortriptyline HCl (Pamelor Cap) 10 mg HS PO 05/16/16 21:00 06/15/16 20:59 05/18/16 21:14 10 MG Bimatoprost (Lumigan 0.01%) 1 drops HS OPB 05/16/16 21:00 06/15/16 20:59 05/18/16 21:21 1 DROPS Miscellaneous Information (Order Awaiting Action) 1 ea QS N/A 05/16/16 11:00 06/15/16 10:59 Levothyroxine Sodium (Synthroid Tab) 75 mcg DAILYBB PO 05/17/16 06:00 06/16/16 06:59 05/19/16 06:08 75 MCG Warfarin Sodium 4 mg 4 mg DAILY@16 PO 05/16/16 16:00 06/15/16 15:59 05/18/16 21:12 4 MG Pantoprazole Sodium/Syringe (Protonix Inj/ Syringe) 10 ml @ 5 mls/min DAILY@11 IV 05/17/16 11:00 06/16/16 10:59 05/19/16 11:24 5 MLS/MIN Albuterol/ Ipratropium (Duoneb) 3 ml Q4R PRN INH 05/16/16 21:30 06/15/16 21:29 Oxycodone/ Acetaminophen (Percocet 5-325MG Tab) 1 tab Q4H PRN PO 05/16/16 21:45 05/30/16 21:44 05/17/16 00:33 1 TAB Prednisone (PredniSONE TAB) 5 mg BID PO 05/17/16 09:00 06/16/16 08:59 05/19/16 08:33 5 MG Ondansetron HCl (Zofran Inj) 4 mg Q6 PRN IV. 05/17/16 23:39 06/16/16 23:38 HCTZ/Losartan Potassium (Hyzaar 50-12.5 Tab) 2 tab QAM PO 05/18/16 08:00 06/17/16 07:59 05/19/16 08:32 2 TAB Amoxicillin/ Clavulanate Potassium (Augmentin Tab) 875 mg BIDM PO 05/18/16 17:00 05/25/16 16:59 05/19/16 08:31 875 MG
[2016-05-19] MEDS: DONEPEZIL HCL 5 MG TAB PO SCH (19:56)
[2016-05-19] MEDS: ZOLPIDEM TARTRATE 5 MG TAB PO PRN (19:56)
[2016-05-19] MEDS: DULOXETINE HCL 60 MG CAP PO SCH (19:56)
[2016-05-19] MEDS: BIMATOPROST 0.01% OP SOLN 2.5 ML BTL OPB SCH (19:57)
[2016-05-19] MEDS: NORTRIPTYLINE HCL 10 MG CAP PO SCH (19:57)
[2016-05-20 04:48] VITALS: BP 131/82; PULSE 71; TEMP 36.7; O2SAT 95
[2016-05-20] MEDS: LEVOTHYROXINE 75 MCG TAB PO SCH (06:19)
[2016-05-20 07:54] VITALS: BP 144/80; PULSE 75; TEMP 36.6; O2SAT 95
[2016-05-20] MEDS: DOCUSATE SODIUM 100 MG CAP PO SCH ×2 (08:00→21:10)
[2016-05-20 08:06] LABS: INR 2.3 (0.9-1.1); PROTHROMBIN TIME (PATIENT) 25.6 SECONDS (9.0-12.0)
--- NOTE | 2016-05-20 08:06 | ORTHOPEDICS PROGRESS NOTE ---
DATE: 05/20/2016 Mr. Kong is doing well. Looks much better. He notes that he feels a lot better. His vital signs are stable. He notes no chest pain, shortness of breath, fever or chills. Vital signs are stable. He is afebrile. Blood pressure is excellent. Neurovascular check both lower extremities is at baseline. Left knee wound is clean, dry and intact. He is starting to move his knee much easier. Can easily flex to 60-65 degrees. INR yesterday was 2.4, today is pending. Would suggest not increasing that much above 2.2. ASSESSMENT: Overall, doing well status post left total knee replacement. Plan is for him to be discharged to extended care facility. It is unclear whether he will either go to [facility] or to [facility]. Potential discharge is tomorrow. He should keep appointment previously scheduled for staple removal, which needs to be after 14 days postop.
[2016-05-20] MEDS: LOSARTAN/HCTZ 50-12.5 EA TAB PO SCH (09:05)
[2016-05-20] MEDS: AMOXICILLIN/CLAVULANATE TAB 875 MG TAB PO SCH ×2 (09:06→18:12)
[2016-05-20] MEDS: GABAPENTIN 300 MG CAP PO SCH ×3 (09:06→21:09)
[2016-05-20] MEDS: METHADONE HCL 10 MG TAB PO SCH ×2 (09:10→21:10)
[2016-05-20 11:21] VITALS: BP 155/68; PULSE 87; TEMP 36.6; O2SAT 96
[2016-05-20] MEDS: PANTOprazole INJ 40 MG in SYRINGE 0 ML IV SCH (11:43)
--- NOTE | 2016-05-20 14:16 | ORTHOPEDIC CONSULTATION ---
DATE OF CONSULTATION: 05/20/2016 Special attention to right 4th metacarpal fracture. HISTORY OF PRESENT ILLNESS: This is a 75-year-old gentleman who is currently admitted to [facility] with hypoxia and possible pneumonia. The patient is status post recent total knee replacement by Dr. Dilsa. The patient states he had 2 falls over the past month, one possibly 2 weeks ago and the other possibly 4 weeks ago. I asked him whether or not his hand has been evaluated as he is a known patient of Dr. Disla. The patient appears to be uncertain as to whether or not x-rays were taken for his hand. He denies being in any sort of splint, cast or brace. I am consulted by Dr. Margarita Mantilla[facility] hand fracture on the right. OBJECTIVE: Right hand exam: The patient exhibits full range of motion of the digits. He has slight loss of prominence of the right 4th metacarpal knuckle. He has mild tenderness over the 4th metacarpal. He has no rotational deformity. RADIOGRAPHIC EVALUATION: Three views of the right hand and wrist do show a mildly displaced, short oblique metacarpal fracture. Approximately 2 mm of shortening is seen. ASSESSMENT: Right 4th metacarpal fracture, age indeterminate, prior treatment uncertain. PLAN: I discussed the findings of the x-ray. At this point in time, the patient's metacarpal fracture does appear to be stable. I do feel this is healing appropriately. I would not recommend any further treatment with cast, brace or immobilization. I feel he may use the hand as he feels comfortable. I discussed the findings of the x-rays. He may follow up with me or his treating orthopedic surgeon, Dr. Disla if he requests. I would not anticipate any further treatment needed.
[2016-05-20 16:15] VITALS: BP 116/68; PULSE 80; TEMP 36.9; O2SAT 92
[2016-05-20] MEDS: WARFARIN SOD 2 MG TAB PO SCH (16:18)
--- NOTE | 2016-05-20 17:00 | Progress Note ---
Medicine Progress Note Date & Time of Visit: May 20, 2016 at 14:41. Subjective -chronic urinary incontinence-->this is bothering him more today -pain controlled in leg -no breathing issues, coughing, fevers or chills. -tolerating PO but just not hungry Objective Last 8 Hrs Date Time Temp Pulse Resp B/P Pulse Ox O2 Delivery O2 Flow Rate FiO2 05/20/16 11:21 36.6 87 18 155/68 96 Room Air 05/20/16 08:00 Room Air 05/20/16 07:54 36.6 75 16 144/80 95 Room Air Physical Exam: GEN: obese, no acute distress, not on oxygen HEENT: NC/AT, normal sclerae, pupils equal bilaterally CARDIO: reg rate, S1/2 heard without m/g/r LUNGS: CTA bilaterally without crackles, rales or wheezes ABD: soft, non-tender, non-distended, no rebound or guarding, +BS EXTREMITY: RP and DP palpable 2+ bilat, no LE swelling or edema, extremities are warm and well-perfused. Right leg anterior incision closed with promise, not draining and is intact without surrounding erythema. Extensive bruising noted all along the L lower leg/calf area. TEDS in place. Wrist and elbow exam were unremarkable. No hand swelling on the right but some bruising is present. ROM intact in wrist and he can open and close his fist without issue. NEURO: Sensation decreased on right upper and lower extremity, otherwise no focal deficits are noted. Speech and swallow capabilities intact MUSC: 5/5 throughout, except cannot dorsiflex/plantarflex R foot well. SKIN: warm and dry wound and bruising as above. Laboratory Results: Last 24 Hours Test 05/20/16 07:40 Prothrombin Time 25.6 SECONDS Prothromb Time International Ratio 2.3 Assessment & Plan 75 yoM presented from rehab with increased work of breathing after several episodes of nausea, vomiting and diarrhea at the rehab facility. 1. Acute hypoxia 2/2 possible pneumonia likely 2/2 aspiration with h/o vomiting and stroke with residual deficits. Improved without encephalopathy and he is conversant. He is easily reaching and sipping drinks from the bedside table. Off oxygen completely. Blood cultures negative to date. Antiemetics PRN. Fluids for insensible losses as he was diaphoretic and mouth-breathing with a h/o recent vomiting and diarrhea. IVF stopped 05/17. Cont Duonebs. Cont Clinda and Zosyn at this time-switched to Augmentin on 05/18. Stable, and doing well today. Awaiting rehab placement. 2. Acute gastroenteritis-likely community-acquired infection as patient lives in a residential and this has been circulating--resolved. 3. post-operative state s/p L total knee replacement one week ago. Promise in place-to be taken out by Ortho as outpatient on 05/24. Cont ABD over wound tucked into TEDs with SCDs overlying. Cont warfarin for DVT prophylaxis despite extensive ecchymosis as this is expected. Goal INR 1.8-2.2. Daily INR ordered while inpatient. Ortho to observe only at this point. Hold ASA 81mg while on warfarin and with extensive ecchymosis. Cont warfarin at 2mg PO daily. INR 2.3 this morning. 4. History of cerebrovascular accident with right-sided paralysis. The patient has been deteriorating for the last 1 year. No new stroke on CAT scan. Speech eval ordered. Recs to cont aspiration precautions and moist, mech soft diet. No further treatment required. On ASA 81 (not 325?) as outpatient prophylaxis for stroke. 5. Hypertension-stable, cont Hyzaar 6. MINDY-mild likely 2/2 dehydration with recent AGE symptoms. Resolved 7. Hypothyroidism. Continue with replacement. 8. Depression, seems to be stable, may have dementia. Continue with Aricept/ Cymbalta. 9. Chronic pain syndrome -since CVA 19 years ago.Has been on high dose Methadone. Added home percocet back, also. 10. Metacarpal fracture (R 4th MC)-R elbow pain after FOOSH injury while at home 3-4 weeks ago. No elbow fracture, however, 4th metacarpal fracture is healing. ROM is normal and no pain or swelling noted in R hand. Ortho hand specialist consulted. Of note, patient kept describing an elbow pain, however, the fracture and pain was actually coming from his hand. With his prior stroke and complex chronic pain syndrome related to this, his perception of pain is very skewed and this is expected. Non-operative management. 11. Insomnia last night-Ambien added PRN, may be related to nighttime prednisone dose? Worked well, cont this as needed. 12. Chronic urinary incontinence-on Vesicare at home. Not continued on admission as this was not on formulary. aware and will bring in for him to take. Cont workup with Urology as an outpatient. Diet-heart healthy,moist, mech soft DVT prophy-Warfarin/SCDs/TEDs Dispo-to rehab once authorization approved. [facility] Consultants: Ortho Current Inpatient Medications: Current Inpatient Medications Medications (Trade) Dose Ordered Sig/Milka Route Start Time Stop Time Status Last Admin Dose Admin Acetaminophen (Tylenol Tab) 650 mg Q4 PRN PO 05/16/16 07:15 06/15/16 07:14 Future hold Aspirin (Ecotrin Tab) 81 mg QAM PO 05/16/16 09:00 06/15/16 08:59 Future Hold 05/16/16 10:33 81 MG Bisacodyl (Dulcolax Supp) 10 mg Q24H PRN [place] 05/16/16 07:15 06/15/16 07:14 Docusate Sodium (coLACE CAP) 100 mg BID PO 05/16/16 09:00 06/15/16 08:59 05/19/16 08:32 100 MG Donepezil HCl (Aricept Tab) 5 mg HS PO 05/16/16 21:00 06/15/16 20:59 Future hold 05/19/16 19:56 5 MG Duloxetine HCl (Cymbalta Cap) 60 mg HS PO 05/16/16 21:00 06/15/16 20:59 Future hold 05/19/16 19:56 60 MG Gabapentin (Neurontin Cap) 600 mg TID PO 05/16/16 09:00 06/15/16 08:59 05/20/16 09:06 600 MG Methadone HCl (Dolophine Tab) 30 mg HS PO 05/16/16 21:00 05/30/16 20:59 05/19/16 19:55 30 MG Methadone HCl (Dolophine Tab) 40 mg QAM PO 05/16/16 09:00 05/30/16 08:59 05/20/16 09:10 40 MG Nortriptyline HCl (Pamelor Cap) 10 mg HS PO 05/16/16 21:00 06/15/16 20:59 05/19/16 19:57 10 MG Bimatoprost (Lumigan 0.01%) 1 drops HS OPB 05/16/16 21:00 06/15/16 20:59 05/19/16 19:57 1 DROPS Miscellaneous Information (Order Awaiting Action) 1 ea QS N/A 05/16/16 11:00 06/15/16 10:59 Levothyroxine Sodium 75 mcg 75 mcg DAILYBB PO 05/17/16 06:00 06/16/16 06:59 05/20/16 06:19 75 MCG Pantoprazole Sodium/Syringe (Protonix Inj/ Syringe) 10 ml @ 5 mls/min DAILY@11 IV 05/17/16 11:00 06/16/16 10:59 05/20/16 11:43 5 MLS/MIN Albuterol/ Ipratropium (Duoneb) 3 ml Q4R PRN INH 05/16/16 21:30 06/15/16 21:29 Oxycodone/ Acetaminophen (Percocet 5-325MG Tab) 1 tab Q4H PRN PO 05/16/16 21:45 05/30/16 21:44 05/17/16 00:33 1 TAB Prednisone (PredniSONE TAB) 5 mg BID PO 05/17/16 09:00 06/16/16 08:59 05/20/16 09:06 5 MG Ondansetron HCl (Zofran Inj) 4 mg Q6 PRN IV. 05/17/16 23:39 06/16/16 23:38 05/20/16 09:45 4 MG HCTZ/Losartan Potassium (Hyzaar 50-12.5 Tab) 2 tab QAM PO 05/18/16 08:00 06/17/16 07:59 05/20/16 09:05 2 TAB Amoxicillin/ Clavulanate Potassium (Augmentin Tab) 875 mg BIDM PO 05/18/16 17:00 05/25/16 16:59 05/20/16 09:06 875 MG Warfarin Sodium (Coumadin Tab) 2 mg DAILY@16 PO 05/19/16 16:00 06/18/16 15:59 05/19/16 16:00 2 MG Zolpidem Tartrate (Ambien Tab) 5 mg HS PRN PO 05/19/16 14:30 06/18/16 14:29 05/19/16 19:56 5 MG
[2016-05-20 20:02] VITALS: BP 116/67; PULSE 74; TEMP 36.7; O2SAT 92
[2016-05-20] MEDS: DONEPEZIL HCL 5 MG TAB PO SCH (21:09)
[2016-05-20] MEDS: DULOXETINE HCL 60 MG CAP PO SCH (21:09)
[2016-05-20] MEDS: NORTRIPTYLINE HCL 10 MG CAP PO SCH (21:10)
[2016-05-20] MEDS: BIMATOPROST 0.01% OP SOLN 2.5 ML BTL OPB SCH (21:11)
[2016-05-21 00:12] VITALS: BP 139/76; PULSE 81; TEMP 36.7; O2SAT 91
[2016-05-21] MEDS: LEVOTHYROXINE 75 MCG TAB PO SCH (06:16)
[2016-05-21 06:27] LABS: INR 2.1 (0.9-1.1); PROTHROMBIN TIME (PATIENT) 23.5 SECONDS (9.0-12.0)
[2016-05-21 07:26] VITALS: BP 124/77; PULSE 72; TEMP 36.4; O2SAT 95
[2016-05-21] MEDS: DOCUSATE SODIUM 100 MG CAP PO SCH ×2 (08:00→20:16)
[2016-05-21] MEDS: GABAPENTIN 300 MG CAP PO SCH ×3 (08:04→20:16)
[2016-05-21] MEDS: AMOXICILLIN/CLAVULANATE TAB 875 MG TAB PO SCH ×2 (08:04→17:40)
[2016-05-21] MEDS: LOSARTAN/HCTZ 50-12.5 EA TAB PO SCH (08:04)
[2016-05-21] MEDS: METHADONE HCL 10 MG TAB PO SCH ×2 (08:06→20:22)
[2016-05-21 09:26] VITALS: BP 98/52
[2016-05-21] MEDS: PANTOprazole INJ 40 MG in SYRINGE 0 ML IV SCH (12:06)
[2016-05-21 16:14] VITALS: BP 129/83; PULSE 83; TEMP 36.8; O2SAT 93
[2016-05-21] MEDS: WARFARIN SOD 2 MG TAB PO SCH (16:24)
--- NOTE | 2016-05-21 17:21 | Progress Note ---
Medicine Progress Note Date & Time of Visit: May 21, 2016 at 14:15. Subjective No issues today Was up in chair today and appears hard to motivate. Reports some pain after transfers but this is controlled with meds. Tolerating PO and appears to have his appetite back. Objective Last 8 Hrs Date Time Temp Pulse Resp B/P Pulse Ox O2 Delivery O2 Flow Rate FiO2 05/21/16 08:00 Room Air 05/21/16 07:26 36.4 72 18 124/77 95 Room Air Physical Exam: GEN: obese, no acute distress, appears comfortable HEENT: NC/AT, normal sclerae CARDIO: reg rate, S1/2 heard without m/g/r LUNGS: CTA bilaterally without crackles, rales or wheezes ABD: soft, non-tender, non-distended, no rebound or guarding, +BS EXTREMITY: RP and DP palpable 2+ bilat, no LE swelling or edema, extremities are warm and well-perfused. Right leg anterior incision closed with promise, not draining and is intact without surrounding erythema. Extensive bruising noted all along the L lower leg/calf area. TEDS in place. NEURO: Sensation decreased on right upper and lower extremity, otherwise no focal deficits are noted. MUSC: Generally deconditioned. SKIN: warm and dry wound and bruising as above. Laboratory Results: Last 24 Hours Test 05/21/16 05:47 Prothrombin Time 23.5 SECONDS Prothromb Time International Ratio 2.1 Assessment & Plan 75 yoM presented from rehab with increased work of breathing after several episodes of nausea, vomiting and diarrhea at the rehab facility. Was there for a TKR performed 1-2 weeks ago. 1. Acute hypoxia 2/2 possible pneumonia likely 2/2 aspiration with h/o vomiting and stroke with residual deficits. Improved without encephalopathy and he is conversant. Has been stable now for several days. Off oxygen completely. Blood cultures negative to date. IVF stopped 05/17. Cont Duonebs. Cont Clinda and Zosyn at this time-switched to Augmentin on 05/18. Stable, and doing well today. Awaiting rehab placement. 2. Acute gastroenteritis-likely community-acquired infection as patient lives in a fci and this has been circulating--resolved. 3. post-operative state s/p L total knee replacement one week ago. Promise in place-to be taken out by Ortho as outpatient on 05/24. Cont ABD over wound tucked into TEDs with SCDs overlying. Cont warfarin for DVT prophylaxis despite extensive ecchymosis as this is expected. Goal INR 1.8-2.2. Daily INR ordered while inpatient. Ortho to observe only at this point. Hold ASA 81mg while on warfarin and with extensive ecchymosis. Cont warfarin at 2mg PO daily. INR 2.3 this morning. 4. History of cerebrovascular accident with right-sided paralysis. The patient has been deteriorating for the last 1 year. No new stroke on CAT scan. Speech eval ordered. Recs to cont aspiration precautions and moist, mech soft diet. No further treatment required. On ASA 81 (not 325?) as outpatient prophylaxis for stroke. 5. Hypertension-stable, cont Hyzaar 6. MINDY-mild likely 2/2 dehydration with recent AGE symptoms. Resolved 7. Hypothyroidism. Continue with replacement. 8. Depression, seems to be stable, may have dementia. Continue with Aricept/ Cymbalta. 9. Chronic pain syndrome -since CVA 19 years ago. Has been on high dose Methadone. Gabapentin, Percocet PRN 10. Metacarpal fracture (R 4th MC)-R elbow pain after FOOSH injury while at home 3-4 weeks ago. No elbow fracture, however, 4th metacarpal fracture is healing. ROM is normal and no pain or swelling noted in R hand. Ortho hand specialist consulted. Of note, patient kept describing an elbow pain, however, the fracture and pain was actually coming from his hand. With his prior stroke and complex chronic pain syndrome related to this, his perception of pain is very skewed and this is expected. Non-operative management. 11. Insomnia last night-Ambien added PRN, may be related to nighttime prednisone dose? Worked well, cont this as needed. 12. Chronic urinary incontinence-on Vesicare at home. Not continued on admission as this was not on formulary. aware and will bring in for him to take. Cont workup with Urology as an outpatient. Diet-heart healthy,moist, mech soft DVT prophy-Warfarin/SCDs/TEDs Dispo-to rehab once authorization approved. Margarita Mantilla DO [facility] Hospitalist Consultants: Ortho Current Inpatient Medications: Current Inpatient Medications Medications (Trade) Dose Ordered Sig/Milka Route Start Time Stop Time Status Last Admin Dose Admin Acetaminophen (Tylenol Tab) 650 mg Q4 PRN PO 05/16/16 07:15 06/15/16 07:14 Future hold Aspirin (Ecotrin Tab) 81 mg QAM PO 05/16/16 09:00 06/15/16 08:59 Future Hold 05/16/16 10:33 81 MG Bisacodyl (Dulcolax Supp) 10 mg Q24H PRN [place] 05/16/16 07:15 06/15/16 07:14 Docusate Sodium (coLACE CAP) 100 mg BID PO 05/16/16 09:00 06/15/16 08:59 05/19/16 08:32 100 MG Donepezil HCl (Aricept Tab) 5 mg HS PO 05/16/16 21:00 06/15/16 20:59 Future hold 05/20/16 21:09 5 MG Duloxetine HCl (Cymbalta Cap) 60 mg HS PO 05/16/16 21:00 06/15/16 20:59 Future hold 05/20/16 21:09 60 MG Gabapentin (Neurontin Cap) 600 mg TID PO 05/16/16 09:00 06/15/16 08:59 05/21/16 08:04 600 MG Methadone HCl (Dolophine Tab) 30 mg HS PO 05/16/16 21:00 05/30/16 20:59 05/20/16 21:10 30 MG Methadone HCl (Dolophine Tab) 40 mg QAM PO 05/16/16 09:00 05/30/16 08:59 05/21/16 08:06 40 MG Nortriptyline HCl (Pamelor Cap) 10 mg HS PO 05/16/16 21:00 06/15/16 20:59 05/20/16 21:10 10 MG Bimatoprost (Lumigan 0.01%) 1 drops HS OPB 05/16/16 21:00 06/15/16 20:59 05/20/16 21:11 1 DROPS Miscellaneous Information (Order Awaiting Action) 1 ea QS N/A 05/16/16 11:00 06/15/16 10:59 Levothyroxine Sodium 75 mcg 75 mcg DAILYBB PO 05/17/16 06:00 06/16/16 06:59 05/21/16 06:16 75 MCG Pantoprazole Sodium/Syringe (Protonix Inj/ Syringe) 10 ml @ 5 mls/min DAILY@11 IV 05/17/16 11:00 06/16/16 10:59 05/21/16 12:06 5 MLS/MIN Albuterol/ Ipratropium (Duoneb) 3 ml Q4R PRN INH 05/16/16 21:30 06/15/16 21:29 Oxycodone/ Acetaminophen (Percocet 5-325MG Tab) 1 tab Q4H PRN PO 05/16/16 21:45 05/30/16 21:44 05/17/16 00:33 1 TAB Prednisone (PredniSONE TAB) 5 mg BID PO 05/17/16 09:00 06/16/16 08:59 05/21/16 08:04 5 MG Ondansetron HCl (Zofran Inj) 4 mg Q6 PRN IV. 05/17/16 23:39 06/16/16 23:38 05/20/16 09:45 4 MG HCTZ/Losartan Potassium (Hyzaar 50-12.5 Tab) 2 tab QAM PO 05/18/16 08:00 06/17/16 07:59 05/21/16 08:04 2 TAB Amoxicillin/ Clavulanate Potassium (Augmentin Tab) 875 mg BIDM PO 05/18/16 17:00 05/25/16 16:59 05/21/16 08:04 875 MG Warfarin Sodium (Coumadin Tab) 2 mg DAILY@16 PO 05/19/16 16:00 06/18/16 15:59 05/20/16 16:18 2 MG Zolpidem Tartrate (Ambien Tab) 5 mg HS PRN PO 05/19/16 14:30 06/18/16 14:29 05/19/16 19:56 5 MG
[2016-05-21] MEDS: DONEPEZIL HCL 5 MG TAB PO SCH (20:16)
[2016-05-21] MEDS: DULOXETINE HCL 60 MG CAP PO SCH (20:18)
[2016-05-21] MEDS: BIMATOPROST 0.01% OP SOLN 2.5 ML BTL OPB SCH (20:18)
[2016-05-21] MEDS: NORTRIPTYLINE HCL 10 MG CAP PO SCH (20:18)
[2016-05-21] MEDS: ZOLPIDEM TARTRATE 5 MG TAB PO PRN (20:21)
[2016-05-22 00:24] VITALS: BP 117/71; PULSE 76; TEMP 36.8; O2SAT 91
[2016-05-22] MEDS: LEVOTHYROXINE 75 MCG TAB PO SCH (05:45)
[2016-05-22 07:30] VITALS: BP 142/82; PULSE 77; TEMP 36.8; O2SAT 95
[2016-05-22] MEDS: METHADONE HCL 10 MG TAB PO SCH ×2 (07:48→20:46)
[2016-05-22] MEDS: DOCUSATE SODIUM 100 MG CAP PO SCH ×2 (07:48→20:00)
[2016-05-22] MEDS: LOSARTAN/HCTZ 50-12.5 EA TAB PO SCH (07:49)
[2016-05-22] MEDS: GABAPENTIN 300 MG CAP PO SCH ×3 (07:49→20:48)
[2016-05-22] MEDS: AMOXICILLIN/CLAVULANATE TAB 875 MG TAB PO SCH ×2 (07:49→17:48)
[2016-05-22] MEDS: PANTOprazole INJ 40 MG in SYRINGE 0 ML IV SCH (12:19)
[2016-05-22 14:58] VITALS: BP 130/76; PULSE 76; TEMP 37; O2SAT 95
[2016-05-22 16:20] VITALS: O2SAT 95
--- NOTE | 2016-05-22 17:38 | Progress Note ---
Internal Med Progress Note Date of Service: May 22, 2016. Provider Documentation: SUBJECTIVE: resting comfortably ambulated ok says having urine and stool incontinence for about a year afebrile denies any sob no nausea OBJECTIVE: Vital Signs-as noted below Exam: General-alert and oriented. Obese ENT-normal hearing Neck-no neck masses Lungs-cta b/l no wheezing or crackles Heart-s1 and s2 heard regular rate and rhythm no murmurs Abdomen-soft bowel sounds present non tender no distension Extremities-no erythema Neuro-alert and awake moves extremities Lab data as noted below. ASSESSMENT & PLAN: 75 yoM presented from rehab with increased work of breathing after several episodes of nausea, vomiting and diarrhea at the rehab facility. Was there for a TKR performed 1-2 weeks ago. 1. Acute hypoxia 2/2 possible pneumonia likely 2/2 aspiration with h/o vomiting and stroke with residual deficits. Initially treated with clindamycina nd zosyn. currently on augmnetin. DOing fine. plan for rehab in am. 2. Acute gastroenteritis mostly viral.--resolved. 3. post-operative state s/p L total knee replacement one week ago. [place] in place-to be taken out by Ortho as outpatient on 05/24. on coumadin. pt/ot f/u with Ortho. 4. History of cerebrovascular accident with right-sided paralysis. No new stroke on CAT scan.Seen rosario pereira and recommended to cont aspiration precautions and moist, mech soft diet. No further treatment required. On ASA 81 (not 325?) as outpatient prophylaxis for stroke. 5. Hypertension- stable on Hyzaar. 6. MINDY-mild likely 2/2 dehydration with recent AGE symptoms. Resolved 7. Hypothyroidism. on Synthroid. 8. Depression, seems to be stable, may have dementia. Continue with Aricept/ Cymbalta. 9. Chronic pain syndrome -since CVA 19 years ago. Has been on high dose Methadone. Gabapentin, Percocet PRN. 10. Metacarpal fracture (R 4th [facility])-R elbow pain after FOOSH injury while at home 3-4 weeks ago. No elbow fracture, however, 4th metacarpal fracture is healing. seen by ortho ands recommended Non-operative management. 11. Chronic urinary incontinence-on Vesicare at home. Cont workup with Urology as an outpatient. Diet-heart healthy,moist, mech soft. DVT prophy-Warfarin/SCDs/TEDs. Dispo-to rehab in am. Vital Signs: Date Time Temp Pulse Resp B/P Pulse Ox O2 Delivery O2 Flow Rate FiO2 05/22/16 14:58 37.0 76 20 130/76 95 05/22/16 08:00 Room Air 05/22/16 07:30 36.8 77 20 142/82 95 05/22/16 00:24 36.8 76 20 117/71 91 Room Air 05/22/16 00:05 Room Air 2.0 05/21/16 20:05 Room Air 2.0
[2016-05-22] MEDS: WARFARIN SOD 2 MG TAB PO SCH (17:48)
[2016-05-22 19:27] VITALS: BP 134/75; PULSE 69; TEMP 36.8; O2SAT 95
[2016-05-22] MEDS ORDERED: SOLIFENACIN 10 MG PO SCH (20:00)
[2016-05-22] MEDS: BIMATOPROST 0.01% OP SOLN 2.5 ML BTL OPB SCH (20:46)
[2016-05-22] MEDS: NORTRIPTYLINE HCL 10 MG CAP PO SCH (20:47)
[2016-05-22] MEDS: DULOXETINE HCL 60 MG CAP PO SCH (20:47)
[2016-05-22] MEDS: DONEPEZIL HCL 5 MG TAB PO SCH (20:47)
[2016-05-22 23:36] VITALS: BP 131/75; PULSE 73; TEMP 36.7; O2SAT 93
[2016-05-23 03:53] VITALS: BP 145/80; PULSE 72; TEMP 36.8; O2SAT 94
[2016-05-23] MEDS: LEVOTHYROXINE 75 MCG TAB PO SCH (06:29)
[2016-05-23 07:41] VITALS: BP 145/70; PULSE 74; TEMP 36.8; O2SAT 95
[2016-05-23] MEDS: AMOXICILLIN/CLAVULANATE TAB 875 MG TAB PO SCH (07:45)
[2016-05-23] MEDS: DOCUSATE SODIUM 100 MG CAP PO SCH (07:45)
[2016-05-23] MEDS: LOSARTAN/HCTZ 50-12.5 EA TAB PO SCH (07:45)
[2016-05-23] MEDS: GABAPENTIN 300 MG CAP PO SCH ×2 (07:45→13:18)
[2016-05-23] MEDS: METHADONE HCL 10 MG TAB PO SCH (07:47)
[2016-05-23 09:10] VITALS: BP 143/91; PULSE 91; O2SAT 95
[2016-05-23] MEDS: PANTOprazole INJ 40 MG in SYRINGE 0 ML IV SCH (11:10)
[2016-05-23] MEDS ORDERED: AMOX1TAB43 PO (12:39)
[2016-05-23] MEDS ORDERED: WARF2TAB PO (12:41)
--- NOTE | 2016-05-23 12:47 | Discharge Instructions ---
Discharge Instructions Admission Reason for Admission: Aspiration Pneumonia, Sob Discharge Discharge Diagnosis / Problem: aspiration pneumonia? sob, gastroenteritis Discharge Goals Goal(s): Decrease discomfort, Improve function Activity Recommendations Activity Level: Assistance Required Therapies: Physical Therapy, Occupational Therapy, Speech Therapy . Additional Information Patient informed of condition: Yes Advance Directives: Yes DNR: Yes Level of Care: Acute Rehab Communicable Disease: No Prognosis: Stable Concepcion Catheter: No Instructions / Follow-Up Instructions / Follow-Up FOLLOWUP WITH FAMILY DOCTOR IN ONE WEEK FOLLOWUP WITH ORTHOPEDICS SCHEDULED. FOLLOW PT/INR DAILY AND ADJUST COUMADIN DOSE Current Hospital Diet Patient's current hospital diet: AHA Diet (Heart Healthy) Discharge Diet Recommended Diet: AHA Diet (Heart Healthy) Diet Texture: Mechanical Soft (ground) Pending Studies Studies pending at discharge: no Physician Orders On Transfer Special Precautions: FALL AND ASPIRATION PRECAUTIONS Vital Signs: EVERY 8HRS Additional Orders: moist mechanical soft diet Medical Emergencies . Who to Call and When: Medical Emergencies: If at any time you feel your situation is an emergency, please call 911 immediately. . Non-Emergent Contact Non-Emergency issues call your: Primary Care Provider . . "Provider Documentation" section prepared by Oscar Tayolr. Core Measure Problem Core Measures: None
[2016-05-23 13:20] VITALS: BP 145/70; PULSE 74; TEMP 36.8; O2SAT 95
--- NOTE | 2016-05-23 19:16 | Progress Note ---
Internal Med Progress Note Date of Service: May 23, 2016. Provider Documentation: SUBJECTIVE: resting comfortably eating ok afebrile no nausea ok for discharge OBJECTIVE: Vital Signs-as noted below Exam: General-alert and oriented. Obese ENT-normal hearing Neck-no neck masses Lungs-cta b/l no wheezing or crackles Heart-s1 and s2 heard regular rate and rhythm no murmurs Abdomen-soft bowel sounds present non tender no distension Extremities-no erythema Neuro-alert and awake moves extremities Lab data as noted below. ASSESSMENT & PLAN: 75 yoM presented from rehab with increased work of breathing after several episodes of nausea, vomiting and diarrhea at the rehab facility. Was there for a TKR performed 1-2 weeks ago. 1. Acute hypoxia 2/2 possible pneumonia likely 2/2 aspiration with h/o vomiting and stroke with residual deficits. Initially treated with clindamycin and zosyn. currently on augmnetin. DOing fine.discharged on augmentin. plan for rehab today 2. Acute gastroenteritis mostly viral.--resolved. 3. post-operative state s/p L total knee replacement one week ago. [place] in place-to be taken out by Ortho as outpatient on 05/24. on coumadin. pt/ot f/u with Ortho. 4. History of cerebrovascular accident with right-sided paralysis. No new stroke on CAT scan.Seen y speech and recommended to cont aspiration precautions and moist, mech soft diet. No further treatment required. On ASA 81 (not 325?) as outpatient prophylaxis for stroke. f./u with speech at rehab. 5. Hypertension- stable on Hyzaar. 6. MINDY-mild likely 2/2 dehydration with recent AGE symptoms. Resolved 7. Hypothyroidism. on Synthroid. 8. Depression, seems to be stable, may have dementia. Continue with Aricept/ Cymbalta. 9. Chronic pain syndrome -since CVA 19 years ago. Has been on high dose Methadone. Gabapentin, Percocet PRN. 10. Metacarpal fracture (R 4th [facility])-R elbow pain after FOOSH injury while at home 3-4 weeks ago. No elbow fracture, however, 4th metacarpal fracture is healing. seen by ortho ands recommended Non-operative management. 11. Chronic urinary incontinence-on Vesicare at home. Cont workup with Urology as an outpatient. Diet-heart healthy,moist, mech soft. discharged to rehab Vital Signs: Date Time Temp Pulse Resp B/P Pulse Ox O2 Delivery O2 Flow Rate FiO2 05/23/16 13:20 36.8 74 20 95 Room Air 05/23/16 09:10 91 95 05/23/16 08:00 Room Air 05/23/16 07:41 36.8 74 20 145/70 95 Room Air 05/23/16 03:53 36.8 72 18 145/80 94 Room Air 05/23/16 00:00 Room Air 05/22/16 23:36 36.7 73 18 131/75 93 Room Air 05/22/16 19:27 36.8 69 18 134/75 95 Room Air
--- NOTE | 2016-05-31 12:46 | Discharge Summary ---
Discharge Summary Admission Date: May 16, 2016 at 07:00 Discharge Date: May 23, 2016 Discharge Disposition: Home Principal Diagnosis: PNEUMONIA POSSIBLE ASPIRATION GASTROENTERITIS Secondary Diagnoses/Problems: severe stroke about 19 years ago with right-sided hemiparesis and continuous deteriorating of the condition, depression, polymyalgia rheumatica, monoclonal gammopathy, hypertension, hypothyroidism, chronic pain syndrome. Procedures: CT HEAD: Old post infarct changes. No acute intracranial findings ELBOW XRAY: 1. There is no radiographic evidence of fracture. 2. Osteopenia and mild degenerative changes above. WRIST XRAY: 1. No significant change in the appearance/alignment of a healing of fourth metacarpal fracture as compared to 04/13/2016. 2. No acute fracture is seen. 3. Osteopenia and arthritic change as above. Consultations: Ortho Medication Reconciliation New Medications: Amoxicillin & Pot Clavulanate (Amoxicillin/Clavulanate P) 1 Tab Tab 875 MG PO BIDM for 3 Days, TAB Continued Medications: Acetaminophen (Tylenol) 325 Mg Tab 650 MG PO Q4 PRN for MILD PAIN, TAB Aspirin (Aspirin Ec) 81 Mg Tab 81 MG PO QAM Bimatoprost (Lumigan) 0.01 % Ro 1 DROPS OPB HS for 30 Days, #2.5 ML 3 Refills Bisacodyl (Bisacodyl) 10 Mg Sup 10 MG RE Q24H PRN for Constipation Cholecalciferol (Vitamin D) 2,000 Unit Cap 2000 INTER.UNIT PO QPM Cyanocobalamin (Vitamin B-12 1000 Mcg) 1,000 Mcg Tab 1000 MCG PO QAM, TAB Docusate Sodium (Docusate Sodium) 100 Mg Cap 100 MG PO BID for 15 Days, #30 CAP takes at 0900 and 1700 Donepezil HCl (Donepezil HCl) 5 Mg Tab 5 MG PO HS Duloxetine HCl (Duloxetine HCl) 60 Mg Cap 60 MG PO HS Gabapentin (Neurontin) 300 Mg Cap 600 MG PO TID, CAP Hctz/Losartan (Hyzaar 25MG/100MG) Tab 1 TAB PO QAM, TAB Ipratropium-Albuterol (Combivent Respimat) 1 Aer Aer 1 PUFFS INH QID PRN for SOB/Wheezing, INH Lactobacillus (Acidophilus) 1 Cap Cap 1 CAP PO BID Levothyroxine Sodium (Levothyroxine Sodium) 25 Mcg Tab 25 MCG PO 3XWK TAKE 25 MCG EVERY SATURDAY,SATURDAY AND SATURDAY. Levothyroxine Sodium (Levothyroxine Sodium) 25 Mcg Tab 50 MCG PO 4XWK, TAB TAKE 50 MCG EVERY SATURDAY,SATURDAY,SATURDAY AND SATURDAY. Methadone Hcl (Dolophine) 10 Mg Tab 40 MG PO QAM Methadone Hcl (Dolophine) 10 Mg Tab 30 MG PO QPM/HS Nortriptyline (Pamelor) 10 Mg Cap 10 MG PO HS, CAP Ondansetron Hcl (Zofran) 4 Mg Tab 4 MG PO Q6 PRN for Nausea, TAB Oxycodone/Acetaminophen 5MG/325MG (Percocet 5MG/325MG) Tab 1 TABLET PO Q4H PRN for Pain, TAB PAIN Pantoprazole (Protonix) 40 Mg Tab 40 MG PO DAILY, #30 TAB Prednisone (Prednisone) 5 Mg Tab 5 MG PO BID, TAB Senna (Senokot) 8.6 Mg Tab 1 TAB PO DAILY, TAB TAKES AT NOON Solifenacin (Vesicare) 10 Mg Tab 10 MG PO QPM, TAB Warfarin Sodium (Coumadin) 2 Mg Tab 2 MG PO DAILY, #30 TAB 1 Refill [lidocaine patch] () 2 PATCH EXT DAILY apply lidocaine patch 5% 2 PATCHES DAILY AT 7AM AND REMOVE 7PM Discontinued Medications: Enoxaparin (Lovenox) 40 Mg/0.4 Ml Inj 40 MG SQ DAILY, SYR Oseltamivir (Tamiflu) 75 Mg Cap 75 MG PO DAILY, #10 TO TAKE FOR 7 DAYS AT 9PM Admission Information HPI (per Admitting provider): He is a 75-year-old male with significant past medical history including severe stroke about 19 years ago with right-sided hemiparesis and continuous deteriorating of the condition, depression, polymyalgia rheumatica, monoclonal gammopathy, hypertension, hypothyroidism, chronic pain syndrome. Apparently was noted to have vomiting and diarrhea in [facility] since yesterday. Early this morning, he was noted to have increasing shortness of breath and change in his mental status. From that point, he was transferred to [facility] ER for further evaluation. No fever, chills or rigors, and no loss of consciousness, but did have more shortness of breath. The history was taken from and in the ER upon investigation showed a white count of 13.91, potassium of 3.1, and chest x-ray did show evidence of probable aspiration pneumonia. From that point, he was admitted to telemetry unit for continuation of care. He required BiPAP to maintain saturation in the Emergency Room. Physical Exam (per Admitting): GENERAL: In the Emergency Room, he was on BiPAP, moderate shortness of breath at rest, but no acute pain. VITAL SIGNS: Temperature 39.3, pulse 110, blood pressure 110/62, saturation 97% on BiPAP on 40% FiO2. HEENT: Unremarkable. NECK: Supple. CHEST: Decreased breath sounds with right basilar crackles. HEART: S1, S2, regular, no murmur. ABDOMEN: Distended, soft, nontender. Bowel sounds present. EXTREMITIES: Trace edema bilaterally, more on the left, with extensive bruising involving the knee and the upper part of the leg on the left side. CENTRAL NERVOUS SYSTEM: Alert, awake, not communicating, no movement of the right side at all, minimal movement of the left-sided extremities Hospital Course 75 yoM presented from rehab with increased work of breathing after several episodes of nausea, vomiting and diarrhea at the rehab facility. Was there for a TKR performed 1-2 weeks ago. 1. Acute hypoxia 2/2 possible pneumonia likely 2/2 aspiration with h/o vomiting and stroke with residual deficits. Initially treated with clindamycin and zosyn. currently on augmnetin. DOing fine.discharged on augmentin. plan for rehab today 2. Acute gastroenteritis mostly viral.--resolved. 3. post-operative state s/p L total knee replacement one week ago. [place] in place-to be taken out by Ortho as outpatient on 05/24. on coumadin. pt/ot f/u with Ortho. 4. History of cerebrovascular accident with right-sided paralysis. No new stroke on CAT scan.Seen y speech and recommended to cont aspiration precautions and moist, mech soft diet. No further treatment required. On ASA 81 (not 325?) as outpatient prophylaxis for stroke. f./u with speech at rehab. 5. Hypertension- stable on Hyzaar. 6. MINDY-mild likely 2/2 dehydration with recent AGE symptoms. Resolved 7. Hypothyroidism. on Synthroid. 8. Depression, seems to be stable, may have dementia. Continue with Aricept/ Cymbalta. 9. Chronic pain syndrome -since CVA 19 years ago. Has been on high dose Methadone. Gabapentin, Percocet PRN. 10. Metacarpal fracture (R 4th MC)-R elbow pain after FOOSH injury while at home 3-4 weeks ago. No elbow fracture, however, 4th metacarpal fracture is healing. seen by ortho ands recommended Non-operative management. 11. Chronic urinary incontinence-on Vesicare at home. Cont workup with Urology as an outpatient. Diet-heart healthy,moist, mech soft. discharged to rehab Total time spent on discharge = 35MINUTES This includes examination of the patient, discharge planning, medication reconciliation, and communication with other providers. Discharge Instructions Please take this sheet to every appointment for the next month Discharge Instructions Admission Reason for Admission: Aspiration Pneumonia, Sob Discharge Discharge Diagnosis / Problem: aspiration pneumonia? sob, gastroenteritis Discharge Goals Goal(s): Decrease discomfort, Improve function Activity Recommendations Activity Level: Assistance Required Therapies: Physical Therapy, Occupational Therapy, Speech Therapy . Additional Information Patient informed of condition: Yes Advance Directives: Yes DNR: Yes Level of Care: Acute Rehab Communicable Disease: No Prognosis: Stable Concepcion Catheter: No Instructions / Follow-Up Instructions / Follow-Up FOLLOWUP WITH FAMILY DOCTOR IN ONE WEEK FOLLOWUP WITH ORTHOPEDICS SCHEDULED. FOLLOW PT/INR DAILY AND ADJUST COUMADIN DOSE Current Hospital Diet Patient's current hospital diet: AHA Diet (Heart Healthy) Discharge Diet Recommended Diet: AHA Diet (Heart Healthy) Diet Texture: Mechanical Soft (ground) Pending Studies Studies pending at discharge: no Physician Orders On Transfer Special Precautions: FALL AND ASPIRATION PRECAUTIONS Vital Signs: EVERY 8HRS Additional Orders: moist mechanical soft diet Medical Emergencies . Who to Call and When: Medical Emergencies: If at any time you feel your situation is an emergency, please call 911 immediately. . Non-Emergent Contact Non-Emergency issues call your: Primary Care Provider . . "Provider Documentation" section prepared by Oscar Taylor. Core Measure Problem Core Measures: None
[2016-10-11] MEDS ORDERED: HYZ/10015 PO (08:06)
[2016-10-11] MEDS ORDERED: MELA1TAB5 PO (08:06)
[2016-10-11] MEDS ORDERED: LEVO25TA5 PO (08:06)
[2016-10-11] MEDS ORDERED: MTH10 PO (08:06)
[2016-10-11] MEDS ORDERED: DONE1TAB11 PO (08:06)
[2016-10-11] MEDS ORDERED: MOML PO (08:06)
[2016-10-11] MEDS ORDERED: CLB100 PO (08:06)
[2017-01-08] MEDS ORDERED: SODIENE PR (07:48)
[2017-01-08] MEDS ORDERED: MELO15TA4 PO (07:48)
[2017-01-08] MEDS ORDERED: GABA600T PO (07:48)
[2017-01-08] MEDS ORDERED: TRAZ100T29 PO (07:48)
[2017-01-08] MEDS ORDERED: TRAV0.00 OP (07:48)
[2017-01-08] MEDS ORDERED: BIMA0.01 OP (07:48)
[2017-01-08] MEDS ORDERED: MULT-506 PO (07:48)
[2017-01-08] MEDS ORDERED: METH10TA2 PO (07:48)
[2017-01-08] MEDS ORDERED: BISA10SU3 PR (07:48)
[2017-01-08] MEDS ORDERED: LEVO25TA5 PO (07:48)
[2017-01-08] MEDS ORDERED: LACTCAP3 PO (07:48)
[2017-01-08] MEDS ORDERED: ACET-1311 PO (07:48)
[2017-01-08] MEDS ORDERED: AMLO-114 PO (07:48)
[2017-01-08] MEDS ORDERED: CYAN10005 PO (07:48)
[2017-01-08] MEDS ORDERED: IPRASOL4 INH (07:48)
[2017-01-28] MEDS ORDERED: BROM0.0911 OPR (14:38)
[2017-01-28] MEDS ORDERED: BUME1TAB42 PO (14:40)
[2017-01-28] MEDS ORDERED: POTA10CA28 PO (14:45)
[2017-01-28] MEDS ORDERED: BRIN3SUS OPR (14:49)
[2017-01-28] MEDS ORDERED: PRED1SUS17 OP (14:51)
[2017-01-28] MEDS ORDERED: CPROT OPR (14:51)
[2017-01-31] MEDS ORDERED: LVQ750 PO ×2 (10:45→10:58)
== END 2016-05-23 15:00 | DRG 871 ==
LOC: ENRESERVTM → ENRESERVDT → EDBD 04:39 → C.EDB 04:41 → C.2T 07:00 → C.MS4W 05-17 14:19
PROVIDERS: ADMIT Internal Medicine; ATTEND Internal Medicine
DX: A41.9 Sepsis, unspecified organism (principal); J69.0 Pneumonitis due to inhalation of food and vomit; J96.01 Acute respiratory failure with hypoxia; I69.851 Hemiplegia and hemiparesis following other cerebrovascular disease affecting right dominant side; N17.9 Acute kidney failure, unspecified; A08.4 Viral intestinal infection, unspecified; G89.4 Chronic pain syndrome; J44.9 Chronic obstructive pulmonary disease, unspecified; E03.9 Hypothyroidism, unspecified; S62.304D Unspecified fracture of fourth metacarpal bone, right hand, subsequent encounter for fracture with routine healing; M35.3 Polymyalgia rheumatica; M17.12 Unilateral primary osteoarthritis, left knee; Z83.3 Family history of diabetes mellitus; E86.0 Dehydration; I10 Essential (primary) hypertension; G47.30 Sleep apnea, unspecified; Z66 Do not resuscitate; D47.2 Monoclonal gammopathy; R33.9 Retention of urine, unspecified; G47.00 Insomnia, unspecified; Z98.890 Other specified postprocedural states; W19.XXXD Unspecified fall, subsequent encounter; Z96.652 Presence of left artificial knee joint

== ENCOUNTER 2016-06-05 09:08 | Inpatient (IN) | payer BC, OTHER ==
[~2016-06-05] VITALS: Ht 188 cm; Wt 123.8 kg
[~2016-06-05 09:08] MED LIST changes: +ACET-1311 PO; +AMOX1TAB43 PO; -BCTROWC TOP; +BISA10SU5 RE; +DOCU100C31 PO; -NYSCR30 TOP; -OMEP20CA9 PO; +ONDA4TAB46 PO; +PANT40TA PO; +SENN-61 PO; +lidocaine patch EXT
[2016-06-05] MEDS ORDERED: SODIUM CHLORIDE 0.9% 1000ML 1,000 ML IV STA (09:30)
[2016-06-05] MEDS ORDERED: WARF4TAB8 PO (09:36)
[2016-06-05] MEDS ORDERED: NF656 TD (09:36)
[2016-06-05] MEDS ORDERED: AMLO2.5T PO (09:36)
[2016-06-05] MEDS ORDERED: NYST1POW7 TOP (09:36)
[2016-06-05] MEDS ORDERED: CHOL20005 PO (09:36)
[2016-06-05] MEDS ORDERED: CYM/30 PO (09:36)
[2016-06-05 09:38] LABS: BASO % 0.3 %; BASO ABS # 0.04 K/uL (0-0.2); COMPLETE YES; EOS % 1.7 %; HEMATOCRIT 28.4 % (42-52); IG% 0.7 %; LYMPH % 23.2 %; LYMPH ABS # 2.82 K/uL (1.2-3.4); MEAN CELL VOLUME 80.5 fL (80-100); MEAN CORPUSCULAR HEMOGLOBIN 25.8 pg (25-34); MEAN PLATELET VOLUME 10.2 fL (7.4-10.4); NEUT % 65.1 %; PLATELET COUNT 316 K/uL (130-400); RED BLOOD COUNT 3.53 M/uL (4.7-6.1); WHITE BLOOD COUNT 12.17 K/uL (4.8-10.8)
[2016-06-05 09:48] LABS: INR 1.7 (0.9-1.1); PARTIAL THROMBOPLASTIN RATIO 1.3; PROTHROMBIN TIME (PATIENT) 18.8 SECONDS (9.0-12.0)
[2016-06-05 10:07] LABS: BUN/CREATININE RATIO 15.2 (10-20); CALCIUM 8.7 mg/dl (8.5-10.1); CREATININE 1.5 mg/dl (0.60-1.40); POTASSIUM 3.2 mmol/L (3.5-5.1)
--- NOTE | 2016-06-05 10:44 | EMERGENCY ROOM VISIT NOTE ---
History Report prepared by Marlyn: Nayely Marie Under the Supervision of: Dr. Rosina Richard M.D. First contact with patient: 09:30 Chief Complaint: RECTAL BLEEDING Stated Complaint: BLOODY STOOL History of Present Illness The patient is a 75 year old male who presents to the Emergency Room with complaints of persistent rectal bleeding that began this morning with a bowel movement. The patient states that he is currently residing at [facility] for rehabilitation after a knee surgery. He states that he had his surgery on May 09 and was placed on Coumadin. The patient's states that the patient went to [facility] the day after surgery for rehabilitation and was there for five days. She states that the patient got a stomach bug and was vomiting and experiencing diarrhea. The patient's states that the patient was brought to the emergency department for further work up because he aspirated. She states that the patient was in the hospital for five days on IV antibiotics for aspiration pneumonia. The patient's states that the patient wasn't doing well until Saturday. She states that the patient was able to start turning himself on Saturday. The patient's states that the patient was started on 4 mg of Coumadin and Lovenox injections, and notes that the patient previously had 81 mg of aspirin. The patient states that he has a history of a stroke in 1996, which affected his right side. He describes his blood as bright red. The patient states that he had been having normal formed bowel movements, but states that today he had diarrhea. He additionally notes a history of hemorrhoids. The patient denies any abdominal pain. He states that he is incontinent today which is normal. The patient notes a history of a previous colonoscopy that was normal. The patient's notes that when he was at home he would have some blood due to hemorrhoids. Source of History: patient Onset: this morning Position: other (Rectal) Quality: other (bleeding) Timing: other (persistent) Associated Symptoms: + diarrhea, No abdominal pain Review of Systems See HPI for pertinent positives & negatives. A total of 10 systems reviewed and were otherwise negative. Past Medical & Surgical Medical Problems: (1) Chronic pain syndrome (2) COPD (chronic obstructive pulmonary disease) (3) CVA (cerebral infarction) (4) Hypothyroidism (5) FELICITA (iron deficiency anemia) (6) Monoclonal gammopathy (7) PMR (polymyalgia rheumatica) (8) Right-sided nerve pain (9) Right-sided numbness (10) Sleep apnea (11) SOB (shortness of breath) (12) TIA (transient ischemic attack) Surgical Problems: (1) H/O esophagogastroduodenoscopy (2) H/O hernia repair (3) S/P cholecystectomy (4) S/P small bowel resection Family History Diabetes mellitus Gallbladder disease Heart disease Hypertension Kidney disease Kidney stones Lung disease Stroke Social History Smoking Status: Former Smoker Alcohol Use: none Drug Use: none Marital Status: Housing Status: lives with family, lives with significant other Occupation Status: retired Current/Historical Medications Scheduled Aspirin (Aspirin Ec), 81 MG PO QAM Bimatoprost (Lumigan), 1 DROPS OPB HS Celecoxib (CeleBREX), 200 MG PO DAILY Cholecalciferol (Vitamin D3), 2,000 UNITS PO QDD Cyanocobalamin (Vitamin B-12 1000 Mcg), 1,000 MCG PO QAM Docusate Sodium (Docusate Sodium), 100 MG PO BID Donepezil HCl (Donepezil HCl), 5 MG PO HS Duloxetine Hcl (Cymbalta), 60 MG PO DAILY Gabapentin (Neurontin), 600 MG PO TID Lactobacillus (Acidophilus), 1 CAP PO BID Levothyroxine Sodium (Levothyroxine Sodium), 25 MCG PO 3XWK Levothyroxine Sodium (Levothyroxine Sodium), 50 MCG PO 4XWK Lidocaine (Lidoderm Patch 5%), 2 PATCH TD DAILY Losartan Potassium & Hydrochlo (Hyzaar), 1 TAB PO DAILY Methadone Hcl (Dolophine), 40 MG PO QAM Methadone Hcl (Dolophine), 30 MG PO QPM/HS Nortriptyline (Pamelor), 10 MG PO HS Nystatin (Topical) (Nystatin), 1 APPLN TOP BID Pantoprazole (Protonix), 40 MG PO DAILY Prednisone (Prednisone), 5 MG PO BID Senna (Senokot), 1 TAB PO DAILY Warfarin Sod (Coumadin), 2 MG PO DAILY Scheduled PRN Acetaminophen (Tylenol), 650 MG PO Q4 PRN for MILD PAIN Bisacodyl (Bisacodyl), 10 MG RE Q24H PRN for Constipation Ipratropium-Albuterol (Combivent Respimat), 1 PUFFS INH QID PRN for SOB/Wheezing Ondansetron Hcl (Zofran), 4 MG PO Q6 PRN for Nausea Oxycodone/Acetaminophen 5MG/325MG (Percocet 5MG/325MG), 1 TABLET PO Q4H PRN for Pain Allergies Coded Allergies: Iodinated Diagnostic Agents (Verified Allergy, Unknown, HIVES, 06/05/16) Physical Exam Vital Signs Date Time Temp Pulse Resp B/P Pulse Ox O2 Delivery O2 Flow Rate FiO2 06/05/16 13:53 36.5 90 16 129/40 96 Nasal Cannula 2.0 06/05/16 13:17 88 16 125/70 95 Nasal Cannula 2.0 06/05/16 11:10 89 16 99/70 100 Nasal Cannula 2.0 06/05/16 09:49 97 06/05/16 09:26 36.5 92 22 105/80 97 Room Air Physical Exam Vital signs reviewed. General: Elderly, obese, chronically ill appearing male, in no significant distress. HEENT: No scleral icterus, PERRLA, neck supple. Atraumatic. Cardiovascular: Regular rate and rhythm, no extra sounds. Pulmonary: Clear to auscultation bilaterally, normal work of breathing. Abdomen: Soft, nontender, nondistended, positive bowel sounds. Rectal: Guaiac positive mucousy blood tinged stool. Musculoskeletal: Atraumatic, no peripheral edema. Neurologic: Weak right upper extremity and weak right lower extremity. Patient awake alert and oriented x 3. Cranial nerves 2 through 12 grossly intact. Skin: Warm, dry, no rash Medical Decision & Procedures ER Provider Diagnostic Interpretation: X-ray results as stated below per interpretation by me and the radiologist: CHEST AND ABDOMEN 2 VIEWS HISTORY: vomiting, diarrhea COMPARISON: Chest 05/16/2016. FINDINGS: The lungs are clear. The cardiomediastinal silhouette is within normal limits. There is no pneumoperitoneum or pneumatosis. Multiple borderline dilated gas-filled loops of large and small bowel seen throughout the abdomen. This favors a mild ileus. No evidence for bowel obstruction. No renal or ureteral calculi. Prior cholecystectomy. IMPRESSION: 1. No acute process within the chest. 2. Borderline dilated gas-filled loops of large and small bowel seen throughout the abdomen. This favors a mild ileus. No evidence for bowel obstruction. Electronically signed by: Virgil Tijerina M.D. 06/05/2016 2:10 PM Dictated Date/Time: 06/05/2016 2:06 PM Laboratory Results 06/05/16 09:18 Red Blood Count 3.53, Mean Corpuscular Volume 80.5, Mean Corpuscular Hemoglobin 25.8, Mean Corpuscular Hemoglobin Concent 32.0, Mean Platelet Volume 10.2, Neutrophils (%) (Auto) 65.1, Lymphocytes (%) (Auto) 23.2, Monocytes (%) (Auto) 9.0, Eosinophils (%) (Auto) 1.7, Basophils (%) (Auto) 0.3, Neutrophils # (Auto) 7.92, Lymphocytes # (Auto) 2.82, Monocytes # (Auto) 1.09, Eosinophils # (Auto) 0.21, Basophils # (Auto) 0.04 06/05/16 09:18 Test 06/05/16 09:18 06/05/16 11:11 White Blood Count 12.17 K/uL (4.8-10.8) Red Blood Count 3.53 M/uL (4.7-6.1) Hemoglobin 9.1 g/dL (14.0-18.0) Hematocrit 28.4 % (42-52) Mean Corpuscular Volume 80.5 fL (80-100) Mean Corpuscular Hemoglobin 25.8 pg (25-34) Mean Corpuscular Hemoglobin Concent 32.0 g/dl (32-36) Platelet Count 316 K/uL (130-400) Mean Platelet Volume 10.2 fL (7.4-10.4) Neutrophils (%) (Auto) 65.1 % Lymphocytes (%) (Auto) 23.2 % Monocytes (%) (Auto) 9.0 % Eosinophils (%) (Auto) 1.7 % Basophils (%) (Auto) 0.3 % Neutrophils # (Auto) 7.92 K/uL (1.4-6.5) Lymphocytes # (Auto) 2.82 K/uL (1.2-3.4) Monocytes # (Auto) 1.09 K/uL (0.11-0.59) Eosinophils # (Auto) 0.21 K/uL (0-0.5) Basophils # (Auto) 0.04 K/uL (0-0.2) RDW Standard Deviation 47.8 fL (36.4-46.3) RDW Coefficient of Variation 16.3 % (11.5-14.5) Immature Granulocyte % (Auto) 0.7 % Immature Granulocyte # (Auto) 0.09 K/uL (0.00-0.02) Prothrombin Time 18.8 SECONDS (9.0-12.0) Prothromb Time International Ratio 1.7 (0.9-1.1) Activated Partial Thromboplast Time 32.9 SECONDS (21.0-31.0) Partial Thromboplastin Ratio 1.3 Anion Gap 7.0 mmol/L (3-11) Est Creatinine Clear Calc Drug Dose 59.4 ml/min Estimated GFR () 52.0 Estimated GFR (Non- 44.9 BUN/Creatinine Ratio 15.2 (10-20) Calcium Level 8.7 mg/dl (8.5-10.1) Total Bilirubin 0.4 mg/dl (0.2-1) Direct Bilirubin 0.1 mg/dl (0-0.2) Aspartate Amino Transf (AST/SGOT) 12 U/L (15-37) Alanine Aminotransferase (ALT/SGPT) 18 U/L (12-78) Alkaline Phosphatase 67 U/L (45-117) Total Protein 6.5 gm/dl (6.4-8.2) Albumin 2.6 gm/dl (3.4-5.0) Stool Occult Blood POSITIVE (NEGATIVE) Laboratory results per my review. Medications Administered Medications (Trade) Dose Ordered Sig/Milka Route Start Time Stop Time Status Last Admin Dose Admin Sodium Chloride (Nss 1000ml) 1,000 ml @ 125 mls/hr Q8H STAT IV 06/05/16 09:30 06/05/16 17:29 06/05/16 09:30 125 MLS/HR Potassium Chloride 40 meq 40 meq NOW STAT PO 06/05/16 10:53 06/05/16 10:54 DC 06/05/16 11:11 40 MEQ Pantoprazole Sodium/Dextrose (Protonix Inj/D5 100ml) 120 ml @ 480 mls/hr TODAY@1315 ONCE IV 06/05/16 13:15 06/05/16 13:29 DC 06/05/16 13:17 480 MLS/HR ECG Indication: vomiting Rate (beats per minute): 93 Rhythm: normal sinus Findings: RBBB, no ectopy, other (repolarization abnormality in the inferior and anterior leads) ED Course 0931: Past medical records reviewed. The patient was evaluated in room A3. A complete history and physical examination was performed by the PA Student. Ordered Sodium Chloride 1000 ml @ 125 mls/hr IV. 1026: Past medical records reviewed. The patient was evaluated in room A3. A complete history and physical examination was performed. 1053: Ordered Potassium Chloride 40 meq PO. 1132: Per the tech, the patient's notes that the patient had an episode of hematemesis today. 1309: I discussed the patients case with Johanny Jovel. He is going to evaluate the patient for further treatment. 1312: I reevaluated the patient and he is resting comfortably. I discussed the exam findings with him and I discussed the treatment plan. He verbalized complete understanding and agreement. He is going to be evaluated for further treatment. 1315: Ordered Pantoprazole 120 ml @ 480 mls/hr IV. Medical Decision Differential diagnosis: Etiologies such as diverticulosis, AVM, coagulopathy, colitis, inflammatory bowel disease, malignancy, Ana Luisa-Butcher tear, esophagitis, peptic ulcer disease , variceal bleed, gastritis, epistaxis, fissure, hemorrhoids, as well as others were entertained. This patient was evaluated and appeared to be chronically ill. Physical examination reveals positive blood flow the rectum. Patient also admits to bloody emesis earlier today. Patient's H&H is only slightly lower than previous however he is at baseline anemic. He is on Coumadin however his INR is 1.7. An abdominal x-ray series was performed and reveals no evidence of obstruction or free air. The patient was given IV Protonix. He'll be evaluated by the hospitalist service for admission and further management. Consults Time Called: 1309 Consulting Physician: Johanny Jovel Returned Call: [phone] I discussed the patients case with Johanny Jovel. He is going to evaluate the patient for further treatment. Impression Primary Impression: GI bleed Additional Impression: Anticoagulated Scribe Attestation The scribe's documentation has been prepared under my direction and personally reviewed by me in its entirety. I confirm that the note above accurately reflects all work, treatment, procedures, and medical decision making performed by me. Departure Information Dispostion Being Evaluated By Hospitalist Referrals Chi Meyers M.D.(HUGH) (PCP) Problem Qualifiers
[2016-06-05] MEDS ORDERED: POTASSIUM CHLORIDE 10 MEQ TABCR PO STA (10:53)
[2016-06-05] MEDS ORDERED: PANTOprazole INJ 80 MG in DEXTROSE 5% 100ML 100 ML IV SCH (11:45)
[2016-06-05] MEDS ORDERED: PANTOprazole INJ 80 MG in DEXTROSE 5% 100ML IV ONE (13:15)
[2016-06-05 13:53] VITALS: BP 129/40; PULSE 90; TEMP 36.5; O2SAT 96; Ht 188 cm; Wt 123.8 kg
--- NOTE | 2016-06-05 14:11 | DIAGNOSTIC IMAGING REPORT ---
CHEST AND ABDOMEN 2 VIEWS HISTORY: vomiting, diarrhea COMPARISON: Chest 05/16/2016. FINDINGS: The lungs are clear. The cardiomediastinal silhouette is within normal limits. There is no pneumoperitoneum or pneumatosis. Multiple borderline dilated gas-filled loops of large and small bowel seen throughout the abdomen. This favors a mild ileus. No evidence for bowel obstruction. No renal or ureteral calculi. Prior cholecystectomy. IMPRESSION: 1. No acute process within the chest. 2. Borderline dilated gas-filled loops of large and small bowel seen throughout the abdomen. This favors a mild ileus. No evidence for bowel obstruction. Electronically signed by: Virgil Tijerina M.D. 06/05/2016 2:10 PM Dictated Date/Time: 06/05/2016 2:06 PM
[2016-06-05] MEDS ORDERED: ONDANSETRON INJ 2 MG/ML 2 ML VIAL IV PRN (14:30)
[2016-06-05] MEDS ORDERED: NITROGLYCERIN 0.4 MG SL PER TAB CHARGE SL PRN (14:30)
[2016-06-05] MEDS ORDERED: ACETAMINOPHEN 325 MG TAB PO PRN (14:30)
[2016-06-05] MEDS ORDERED: LOSA100T2 PO (14:31)
[2016-06-05] MEDS ORDERED: DULO60CA44 PO (14:31)
[2016-06-05] MEDS ORDERED: CLB/200 PO (14:31)
[2016-06-05] MEDS ORDERED: CMD2 PO (14:31)
[2016-06-05] MEDS ORDERED: IPRATROPIUM BROMIDE/ALBUTEROL respimat INH INH PRN (14:45)
[2016-06-05] MEDS ORDERED: OXYCODONE/ACETAMINOPHEN 5-325 TAB PO PRN (14:45)
[2016-06-05] MEDS ORDERED: PHYTONADIONE 5 MG TAB PO ONE (14:45)
[2016-06-05] MEDS ORDERED: PANTOprazole INJ 40 MG in DEXTROSE 5% 100ML IV SCH (15:00)
--- NOTE | 2016-06-05 15:07 | History and Physical ---
History & Physical Date & Time of Service: Jun 05, 2016 at 14:35 Chief Complaint: Bloody Stool Primary Care Physician: Chi Meyers M.D.(CYNTHIA) History of Present Illness Source: patient This is a 75 y/o male with PMHx of CVA with residual R sided paresthesias/pain, Hypothyroidism, HTN and other problems as outlined below who presents to the ED from [facility] c/o bright red blood per rectum that began this morning. Pt was recently admitted to [facility] from 05/16-05/23 for aspiration pneumonia. He has been feeling well since discharge until this morning when he had a loose BM with "large" amounts of bright red blood. His sxs were assoc with nausea and one episode of vomiting. Per nursing staff at [facility] there was no blood in the emesis. Pt has a history of rectal bleed due to hemorrhoids. EGD and sigmoidoscopy from 2013 were normal. Pt has been doing inpatient rehab at [facility] s/p [facility] 05/09/2016 at [facility]. Post-surgery he was started on Coumadin for DVT prophylaxis. In addition he takes a baby ASA daily. Pt denies fever/chills, diaphoresis, chest pain, palpitations, SOB, abd pain, bladder issues, LE edema, calf pain, lightheadedness/dizziness. In the ED, pt is hypotensive on arrival. HgB 9.1. K+ 3.2. creat 1.5. INR 1.7. Pt has not had any more episodes of rectal bleeding since arrival to the ED. He will be admitted for further evaluation and treatment. Past Medical/Surgical History Medical Problems: (1) Chronic pain syndrome Status: Chronic (2) COPD (chronic obstructive pulmonary disease) Status: Chronic (3) CVA (cerebral infarction) Status: Chronic (4) Hypothyroidism Status: Chronic (5) FELICITA (iron deficiency anemia) Status: Chronic (6) Monoclonal gammopathy Status: Chronic (7) PMR (polymyalgia rheumatica) Status: Chronic (8) Right-sided nerve pain Status: Chronic (9) Right-sided numbness Status: Chronic (10) Sleep apnea Status: Chronic Surgical Problems: (1) H/O esophagogastroduodenoscopy Status: Chronic (2) H/O hernia repair Status: Chronic (3) S/P cholecystectomy Status: Chronic (4) S/P small bowel resection Status: Chronic Family History Diabetes mellitus Gallbladder disease Heart disease Hypertension Kidney disease Kidney stones Lung disease Stroke Social History Smoking Status: Former Smoker (50 pack year history; quit 9 years ago ) Alcohol Use: none Drug Use: none Marital Status: Housing status: other ([facility] ) Occupational Status: retired Immunizations History of Influenza Vaccine: No History of Tetanus Vaccine?: Yes History of Pneumococcal: No History of Hepatitis B Vaccine: No Multi-Drug Resistant Organisms History of MDRO: No Allergies Coded Allergies: Iodinated Diagnostic Agents (Verified Allergy, Unknown, HIVES, 06/05/16) Home Medications Scheduled Aspirin (Aspirin Ec), 81 MG PO QAM Bimatoprost (Lumigan), 1 DROPS OPB HS Celecoxib (CeleBREX), 200 MG PO DAILY Cholecalciferol (Vitamin D3), 2,000 UNITS PO QDD Cyanocobalamin (Vitamin B-12 1000 Mcg), 1,000 MCG PO QAM Docusate Sodium (Docusate Sodium), 100 MG PO BID Donepezil HCl (Donepezil HCl), 5 MG PO HS Duloxetine Hcl (Cymbalta), 60 MG PO DAILY Gabapentin (Neurontin), 600 MG PO TID Lactobacillus (Acidophilus), 1 CAP PO BID Levothyroxine Sodium (Levothyroxine Sodium), 25 MCG PO 3XWK Levothyroxine Sodium (Levothyroxine Sodium), 50 MCG PO 4XWK Lidocaine (Lidoderm Patch 5%), 2 PATCH TD DAILY Losartan Potassium & Hydrochlo (Hyzaar), 1 TAB PO DAILY Methadone Hcl (Dolophine), 40 MG PO QAM Methadone Hcl (Dolophine), 30 MG PO QPM/HS Nortriptyline (Pamelor), 10 MG PO HS Nystatin (Topical) (Nystatin), 1 APPLN TOP BID Pantoprazole (Protonix), 40 MG PO DAILY Prednisone (Prednisone), 5 MG PO BID Senna (Senokot), 1 TAB PO DAILY Warfarin Sod (Coumadin), 2 MG PO DAILY Scheduled PRN Acetaminophen (Tylenol), 650 MG PO Q4 PRN for MILD PAIN Bisacodyl (Bisacodyl), 10 MG RE Q24H PRN for Constipation Ipratropium-Albuterol (Combivent Respimat), 1 PUFFS INH QID PRN for SOB/Wheezing Ondansetron Hcl (Zofran), 4 MG PO Q6 PRN for Nausea Oxycodone/Acetaminophen 5MG/325MG (Percocet 5MG/325MG), 1 TABLET PO Q4H PRN for Pain Review of Systems Constitutional: + fatigue, No chills, No fever, No sweats, No weakness Eyes: No worsening of vision ENT: No hearing loss Respiratory: No cough, No hemoptysis, No shortness of breath, No sputum, No wheezing Cardiovascular: No chest pain, No claudication, No edema Abdomen: + GI bleeding, + diarrhea, + nausea, + vomiting, No constipation, No pain Musculoskeletal: No calf pain, No swelling Genitourinary - Male: No dysuria Neurologic: No weakness Psychiatric: No depression symptoms Endocrine: + fatigue Hematologic / Lymphatic: + abnormal bleeding/bruising (see above ) Integumentary: No new/changing skin lesions Physical Exam Vital Signs Date Time Temp Pulse Resp B/P Pulse Ox O2 Delivery O2 Flow Rate FiO2 06/05/16 13:53 36.5 90 16 129/40 96 Nasal Cannula 2.0 06/05/16 13:17 88 16 125/70 95 Nasal Cannula 2.0 06/05/16 11:10 89 16 99/70 100 Nasal Cannula 2.0 06/05/16 09:49 97 06/05/16 09:26 36.5 92 22 105/80 97 Room Air General Appearance: WD/WN, no apparent distress, + pertinent finding (Pt is laying in bed with at bedside ) Head: normocephalic, atraumatic Eyes: normal inspection ENT: hearing grossly normal Neck: supple Respiratory/Chest: chest non-tender, lungs clear, normal breath sounds, no respiratory distress Cardiovascular: regular rate, rhythm, no edema, no murmur Abdomen/GI: normal bowel sounds, non tender, soft Back: normal inspection Extremities/Musculoskelatal: normal inspection, no calf tenderness, no pedal edema Neurologic/Psych: alert, normal mood/affect, oriented x 3 Skin: normal color, warm/dry Diagnostics Laboratory Results Results Past 24 Hours Test 06/05/16 09:18 06/05/16 11:11 Range/Units White Blood Count 12.17 4.8-10.8 K/uL Red Blood Count 3.53 4.7-6.1 M/uL Hemoglobin 9.1 14.0-18.0 g/dL Hematocrit 28.4 42-52 % Mean Corpuscular Volume 80.5 80-100 fL Mean Corpuscular Hemoglobin 25.8 25-34 pg Mean Corpuscular Hemoglobin Concent 32.0 32-36 g/dl Platelet Count 316 130-400 K/uL Mean Platelet Volume 10.2 7.4-10.4 fL Neutrophils (%) (Auto) 65.1 % Lymphocytes (%) (Auto) 23.2 % Monocytes (%) (Auto) 9.0 % Eosinophils (%) (Auto) 1.7 % Basophils (%) (Auto) 0.3 % Neutrophils # (Auto) 7.92 1.4-6.5 K/uL Lymphocytes # (Auto) 2.82 1.2-3.4 K/uL Monocytes # (Auto) 1.09 0.11-0.59 K/uL Eosinophils # (Auto) 0.21 0-0.5 K/uL Basophils # (Auto) 0.04 0-0.2 K/uL RDW Standard Deviation 47.8 36.4-46.3 fL RDW Coefficient of Variation 16.3 11.5-14.5 % Immature Granulocyte % (Auto) 0.7 % Immature Granulocyte # (Auto) 0.09 0.00-0.02 K/uL Prothrombin Time 18.8 9.0-12.0 SECONDS Prothromb Time International Ratio 1.7 0.9-1.1 Activated Partial Thromboplast Time 32.9 21.0-31.0 SECONDS Partial Thromboplastin Ratio 1.3 Sodium Level 142 136-145 mmol/L Potassium Level 3.2 3.5-5.1 mmol/L Chloride Level 103 98-107 mmol/L Carbon Dioxide Level 32 21-32 mmol/L Anion Gap 7.0 3-11 mmol/L Blood Urea Nitrogen 23 7-18 mg/dl Creatinine 1.50 0.60-1.40 mg/dl Est Creatinine Clear Calc Drug Dose 59.4 ml/min Estimated GFR () 52.0 Estimated GFR (Non- 44.9 BUN/Creatinine Ratio 15.2 10-20 Random Glucose 139 70-99 mg/dl Calcium Level 8.7 8.5-10.1 mg/dl Total Bilirubin 0.4 0.2-1 mg/dl Direct Bilirubin 0.1 0-0.2 mg/dl Aspartate Amino Transf (AST/SGOT) 12 15-37 U/L Alanine Aminotransferase (ALT/SGPT) 18 12-78 U/L Alkaline Phosphatase 67 45-117 U/L Total Protein 6.5 6.4-8.2 gm/dl Albumin 2.6 3.4-5.0 gm/dl Stool Occult Blood POSITIVE NEGATIVE Diagnostic Radiology CHEST/ABDOMEN XRAY IMPRESSION: 1. No acute process within the chest. 2. Borderline dilated gas-filled loops of large and small bowel seen throughout the abdomen. This favors a mild ileus. No evidence for bowel obstruction. EKG EKG: NSR at 93 bpm with RBBB; no change when compared to EKG from 05/16/16 Impression Assessment and Plan RECTAL BLEED pt presents with one episode of bright red blood per rectum assoc with N/V -admit to telemetry -likely lower GI bleed; ? hemorrhoids -RFs include NSAID use and anticoagulation (INR 1.7) -colonoscopy/EGD from 2013 were normal -abd/pelvis xray + mild ileus -FOBT is positive in ED -Hgb currently 9.1 (baseline 9.0-9.5); will continue to monitor with H&H q 6h; transfuse PRN HgB < 8 -start Protonix and IVF -hold Coumadin, ASA and Celebrex -give one dose Vit K; monitor INR daily -type and screen completed -consult GI, Dr. Méndez-pending input -pt appears to be hemodynamically stable -continue to monitor closely HYPOTENSION -90s/70s on arrival; likely due to above; improving with IVF -hold Hyzaar for now -cont IVF -monitor MINDY -creatinine is currently 1.5 (bl 1.0-1.2); likely elevated due to dehydration -hold Hyzaar -start IVF -continue to monitor with prp daily and avoid nephrotoxic agents when able HYPOKALEMIA -K+ 3.2; replete -continue to monitor RECENT L TKA -hold Coumadin in setting of GI bleed -PT/OT H/O CVA -s/p CVA 1996; has residual R sided paresthesias and chronic nerve pain -hold Coumadin and ASA in setting of GI bleed CHRONIC PAIN SYNDROME -s/p CVA 1996 -cont methadone and gabapentin -cont Percocet PRN -hold Celebrex for now in setting of GI bleed HYPOTHYROIDISM -cont levothyroxine DEPRESSION -stable -cont Aricept and Cymbalta DVT PROPHYLAXIS -SCDs only in setting of GI bleed CODE STATUS -FULL CODE status per discussion with patient upon admission DISPO -Discharge eval and PT/OT evals -Pt seen in collaboration with Dr Hinds. Please see his addendum for further details. Thanks! ATTENDING ADDENDUM care coordinated with LIZBETH Herrera please refer to her notes for full details, I agree with her notes patient seen and examined, records reviewed by myself as well on exam, patient seen resting in bed, comfortable denies nausea, abdominal pain no vomiting or BM since arrival at the ER no chest pain, dyspnea, dizziness no other symptoms VS noted and reviewed orientedx 3 , not in distress, speaks in sentences with no effort nor accessory muscle use normal rate, regular rhythm, no murmurs clear breath sounds bilaterally non distended, soft, nontender no bipedal edema, erythema, warmth no neuro deficits Hg 9.1 Crea 1.5 ASSESSMENT/PLAN> HEMATOCHEZIA, MILD HEMATEMESIS, in the setting of Coumadin and Aspirin use - on coumadin since knee surgery 05/09/16 for DVT prophylaxis - BP stable hold BP meds for now - Hg 9.1 (baseline around 9) monitor q6h - INR 1.7 vitamin k 2.5mg po ordered - NPO, IV fluids, Protonix drip, GI consult RECENT LEFT KNEE ARTHOPLASTY (05/09/16) - coumadin for DVT prophylaxis on hold - wound appears stable other diagnoses and plan of care as per LIZBETH Herrera's notes Sharath Hinds MD Advanced Directives Existing Living Will: No Existing Power of [employer]: Yes VTE Prophylaxis VTE Risk Assessment Done? Y/N: Yes Risk Level: Moderate
[2016-06-05 15:47] LABS: HEMATOCRIT 25.1 % (42-52)
--- NOTE | 2016-06-05 16:09 | Gastrointestinal Consultation ---
Gastrointestinal Consultation Date of Consultation: Jun 05, 2016 Attending Physician: Sharath Hinds Consulting Physician: Arsh Méndez Reason for Consultation: Rectal Bleeding History of Present Illness Patient is a 75 year old male who presented to ED from [facility] rectal bleeding which started this morning. Pt had hx of L TKA on 05/09/16, readmitted a few weeks ago for aspiration pneumonia. He was discharged to [facility] Coumadin for DVT prophylaxis, also on baby ASA daily. He was feeling well until this AM, had some nausea and vomiting x 1. was told by [facility] staff that the emesis did have slight bright red blood. Pt had a BM this AM, then felt another urge to defecate then suddenly had bright red bleeding out his rectum along w some blood clots. He denies any abd pain, fever, chills, CP, SOB. He also denies any prior constipation, BM regular daily. Upon eval in ED, he was slightly hypotensive w BP 100/80, improved to 130s/80s w IVF hydration. His Hgb was 9.1, similar to a few weeks ago, though in April 2016 his Hgb was 12. He hasn't had any episode of n/v or BMs since coming to ED. His stool occult blood was positive. WBC slightly up at 12, INR 1.7. Chem panel unremarkable except slight hypokalemia at 3.2. He had a KUB which showed possible ileus but otherwise unremarkable. Last sigmoidscopy was 2013 - normal exam from rectum to sigmoid w stools. Past Medical/Surgical History Medical Problems: (1) Ambulatory dysfunction Status: Acute (2) Aspiration pneumonia Status: Acute (3) Ataxia Status: Acute (4) Diplopia Status: Acute (5) Fall Status: Acute (6) Frequent falls Status: Acute (7) Generalized weakness Status: Acute (8) GI bleed Status: Acute (9) Hip pain Status: Acute (10) History of CVA with residual deficit Status: Acute (11) Right rib fracture Status: Acute Past Medical History: See above COPD, CVA, Hypothyroidism, anemia, monoclonal gammopathy, PMR, sleep apnea Past Surgical History: Hiatal hernia repair Cholecystectomy Small bowel resection Family History Diabetes mellitus Gallbladder disease Heart disease Hypertension Kidney disease Kidney stones Lung disease Stroke Social History Smoking Status: Former Smoker (50 pack year history; quit 9 years ago ) Alcohol Use: none Drug Use: none Marital Status: Housing Status: lives with family, lives with significant other Occupation Status: retired Allergies Coded Allergies: Iodinated Diagnostic Agents (Verified Allergy, Unknown, HIVES, 06/05/16) Current Medications Home Meds and Scripts Medications Dose Route/Sig Max Daily Dose Days Date Category Dose Instructions Hyzaar (Losartan Potassium & Hydrochlo) 1 Tab Tab 1 Tab PO DAILY 90 06/05/16 Reported CeleBREX (Celecoxib) 200 Mg Cap 200 Mg PO DAILY 06/05/16 Reported Cymbalta (Duloxetine Hcl) 60 Mg Cap 60 Mg PO DAILY 06/05/16 Reported Coumadin (Warfarin Sod) 2 Mg Tab 2 Mg PO DAILY 06/05/16 Reported Vitamin D3 (Cholecalciferol) 2,000 Unit Tab 2,000 Units PO QDD 06/05/16 Reported Nystatin (Nystatin (Topical)) 1 Pow Pow 1 Appln TOP BID 06/05/16 Reported Lidoderm Patch 5% (Lidocaine) 1 Ea Tdsy 2 Patch TD DAILY 06/05/16 Reported Zofran (Ondansetron HCl) 4 Mg Tab 4 Mg PO Q6 PRN 05/16/16 Reported Percocet 5MG/325MG (Oxycodone/Acetaminophen) Tab 1 Tablet PO Q4H PRN 05/16/16 Reported PAIN Bisacodyl 10 Mg Sup 10 Mg RE Q24H PRN 05/16/16 Reported Tylenol (Acetaminophen) 325 Mg Tab 650 Mg PO Q4 PRN 05/16/16 Reported Senokot (Senna) 8.6 Mg Tab 1 Tab PO DAILY 05/16/16 Reported TAKES AT NOON Protonix (Pantoprazole Sodium) 40 Mg Tab 40 Mg PO DAILY 05/16/16 Reported Docusate Sodium 100 Mg Cap 100 Mg PO BID 15 05/16/16 Reported takes at 0900 and 1700 Pamelor (Nortriptyline HCl) 10 Mg Cap 10 Mg PO HS 04/18/16 Reported Lumigan (Bimatoprost) 0.01 % Ro 1 Drops OPB HS 30 12/30/15 Reported Neurontin (Gabapentin) 300 Mg Cap 600 Mg PO TID 12/30/15 Reported Combivent Respimat (Ipratropium-Albuterol) 1 Aer Aer 1 Puffs INH QID PRN 09/07/15 Reported Dolophine (Methadone HCl) 10 Mg Tab 30 Mg PO QPM/HS 09/07/15 Reported Aspirin Ec (Aspirin) 81 Mg Tab 81 Mg PO QAM 08/02/15 Reported Donepezil HCl 5 Mg Tab 5 Mg PO HS 08/02/15 Reported Levothyroxine Sodium 25 Mcg Tab 50 Mcg PO 4XWK 08/02/15 Reported TAKE 50 MCG EVERY SATURDAY,SATURDAY,SATURDAY AND SATURDAY. Levothyroxine Sodium 25 Mcg Tab 25 Mcg PO 3XWK 08/02/15 Reported TAKE 25 MCG EVERY SATURDAY,SATURDAY AND SATURDAY. Prednisone 5 Mg Tab 5 Mg PO BID 04/08/15 Reported Dolophine (Methadone HCl) 10 Mg Tab 40 Mg PO QAM 04/08/15 Reported Acidophilus (Lactobacillus) 1 Cap Cap 1 Cap PO BID 07/24/13 Reported Vitamin B-12 1000 Mcg (Cyanocobalamin) 1,000 Mcg Tab 1,000 Mcg PO QAM 07/24/13 Reported Review of Systems Constitutional: No chills, No fever Respiratory: No cough, No shortness of breath Cardiac: No chest pain, No edema Abdomen: + GI bleeding, + nausea, + see HPI, + vomiting, No pain Physical Exam Date Time Temp Pulse Resp B/P Pulse Ox O2 Delivery O2 Flow Rate FiO2 06/05/16 14:56 95 18 130/85 97 Room Air 06/05/16 13:53 36.5 90 16 129/40 96 Nasal Cannula 2.0 06/05/16 13:17 88 16 125/70 95 Nasal Cannula 2.0 06/05/16 11:10 89 16 99/70 100 Nasal Cannula 2.0 06/05/16 09:49 97 06/05/16 09:26 36.5 92 22 105/80 97 Room Air General Appearance: WD/WN, no apparent distress, + obese Eyes: normal inspection, PERRL, EOMI Neck: supple, no JVD, trachea midline Respiratory/Chest: no respiratory distress, no accessory muscle use, + decreased breath sounds Cardiovascular: regular rate, rhythm, no gallop, no murmur Abdomen: normal bowel sounds, non tender, soft, + pertinent finding (Rectal exam w/o obvious masses, int/ext hemorrhoids; did notice bright red blood at tip of gloved finger ) Laboratory Results Last 24 Hours Test 06/05/16 09:18 06/05/16 11:11 06/05/16 15:40 White Blood Count 12.17 K/uL Red Blood Count 3.53 M/uL Hemoglobin 9.1 g/dL Hematocrit 28.4 % Mean Corpuscular Volume 80.5 fL Mean Corpuscular Hemoglobin 25.8 pg Mean Corpuscular Hemoglobin Concent 32.0 g/dl Platelet Count 316 K/uL Mean Platelet Volume 10.2 fL Neutrophils (%) (Auto) 65.1 % Lymphocytes (%) (Auto) 23.2 % Monocytes (%) (Auto) 9.0 % Eosinophils (%) (Auto) 1.7 % Basophils (%) (Auto) 0.3 % Neutrophils # (Auto) 7.92 K/uL Lymphocytes # (Auto) 2.82 K/uL Monocytes # (Auto) 1.09 K/uL Eosinophils # (Auto) 0.21 K/uL Basophils # (Auto) 0.04 K/uL RDW Standard Deviation 47.8 fL RDW Coefficient of Variation 16.3 % Immature Granulocyte % (Auto) 0.7 % Immature Granulocyte # (Auto) 0.09 K/uL Prothrombin Time 18.8 SECONDS Prothromb Time International Ratio 1.7 Activated Partial Thromboplast Time 32.9 SECONDS Partial Thromboplastin Ratio 1.3 Sodium Level 142 mmol/L Potassium Level 3.2 mmol/L Chloride Level 103 mmol/L Carbon Dioxide Level 32 mmol/L Anion Gap 7.0 mmol/L Blood Urea Nitrogen 23 mg/dl Creatinine 1.50 mg/dl Est Creatinine Clear Calc Drug Dose 59.4 ml/min Estimated GFR () 52.0 Estimated GFR (Non- 44.9 BUN/Creatinine Ratio 15.2 Random Glucose 139 mg/dl Calcium Level 8.7 mg/dl Total Bilirubin 0.4 mg/dl Direct Bilirubin 0.1 mg/dl Aspartate Amino Transf (AST/SGOT) 12 U/L Alanine Aminotransferase (ALT/SGPT) 18 U/L Alkaline Phosphatase 67 U/L Total Protein 6.5 gm/dl Albumin 2.6 gm/dl Stool Occult Blood POSITIVE Impression Patient is a 75 year old male who is currently admitted for rectal bleeding w/o abd pain. He did have some n/v w slight blood tinged in emesis prior to admission. He had recent hospitalizations for TKA and aspiration pneumonia, currently at [facility] and had been on Coumadin and ASA. KUB showed mild ileus. Differential diagnosis include: diverticular bleed, int hemorrhoidal bleed, infectious colitis, ischemic colitis (less likely) Plan - Ok for CL diet - Hold Coumadin, ASA - Protonix 40mg PO BID - Monitor H/H; transfuse prn - Check stool cx and Cdiff - Will monitor pt's progress, if rectal bleeding continues, may need to perform colonoscopy during this hospitalization stay. I have seen , examined and agree with the plan as outlined by MARCELINO Merino as above. -exam reveals soft abd -suggested colonoscopy tomorrow-pt declined
[2016-06-05] MEDS: SODIUM CHLORIDE 0.9% 1000ML 1,000 ML IV SCH (17:03)
[2016-06-05] MEDS: METHADONE HCL 10 MG TAB PO SCH (17:03)
[2016-06-05 19:24] VITALS: BP 134/76; PULSE 92; TEMP 36.7; O2SAT 97
[2016-06-05] MEDS: BIMATOPROST 0.01% OP SOLN 2.5 ML BTL OPB SCH (19:55)
[2016-06-05] MEDS: NORTRIPTYLINE HCL 10 MG CAP PO SCH (19:56)
[2016-06-05] MEDS: GABAPENTIN 300 MG CAP PO SCH (19:56)
[2016-06-05] MEDS: PANTOprazole SOD 40 MG TAB PO SCH (19:57)
[2016-06-05] MEDS: DONEPEZIL HCL 5 MG TAB PO SCH (19:57)
[2016-06-05] MEDS: NYSTATIN CR 15 GM TUBE EXT SCH (19:58)
[2016-06-05] MEDS ORDERED: PANTOprazole INJ 40 MG in SYRINGE 0 ML IV SCH (21:00)
[2016-06-05] MEDS ORDERED: LACTOBACILLUS PO SCH (21:00)
[2016-06-05 21:34] LABS: HEMATOCRIT 21.9 % (42-52)
[2016-06-05 23:29] VITALS: BP 147/80; PULSE 82; TEMP 36.8; O2SAT 98
[2016-06-05 23:45] VITALS: BP 131/76; PULSE 85; TEMP 37; O2SAT 98
[2016-06-06] VITALS (25 sets, daily range): BP systolic 111–158; BP diastolic 64–87; PULSE 72–107; TEMP 36.2–37; O2SAT 92–100
[2016-06-06 03:09] LABS: HEMATOCRIT 25.7 % (42-52)
[2016-06-06] MEDS: SODIUM CHLORIDE 0.9% 1000ML 1,000 ML IV SCH ×2 (03:30→22:35)
[2016-06-06] MEDS: LEVOTHYROXINE 25 MCG TAB PO SCH (06:19)
[2016-06-06 07:41] LABS: MEAN CELL VOLUME 80.8 fL (80-100); MEAN CORPUSCULAR HEMOGLOBIN 26.3 pg (25-34); MEAN CORPUSCULAR HGB CONC 32.5 g/dl (32-36); MEAN PLATELET VOLUME 9.9 fL (7.4-10.4); PLATELET COUNT 255 K/uL (130-400); RED BLOOD COUNT 2.97 M/uL (4.7-6.1); WHITE BLOOD COUNT 11.04 K/uL (4.8-10.8)
[2016-06-06 07:48] LABS: INR 1.6 (0.9-1.1); PROTHROMBIN TIME (PATIENT) 17.7 SECONDS (9.0-12.0)
[2016-06-06] MEDS ORDERED: PHYTONADIONE INJ 5 MG in SODIUM CHLORIDE 0.9% 50ML 50 ML IV STA (08:11)
[2016-06-06 08:23] LABS: BUN/CREATININE RATIO 20.8 (10-20); CALCIUM 7.8 mg/dl (8.5-10.1); CREATININE 1.3 mg/dl (0.60-1.40)
[2016-06-06] MEDS ORDERED: PHYTONADIONE INJ 2.5 MG in SODIUM CHLORIDE 0.9% 50ML 50 ML IV ONE (08:30)
[2016-06-06] MEDS ORDERED: ACETAMINOPHEN 325 MG TAB PO ONE (08:30)
[2016-06-06] MEDS: PANTOprazole SOD 40 MG TAB PO SCH ×2 (08:40→19:55)
[2016-06-06] MEDS: DULOXETINE HCL 60 MG CAP PO SCH (08:40)
[2016-06-06] MEDS: LIDODERM (LIDOCAINE) PATCH 5% TD SCH (08:40)
[2016-06-06] MEDS: GABAPENTIN 300 MG CAP PO SCH ×3 (08:40→19:56)
[2016-06-06] MEDS: NYSTATIN CR 15 GM TUBE EXT SCH ×2 (08:41→19:57)
[2016-06-06 08:47] LABS: POTASSIUM 3.8 mmol/L (3.5-5.1)
[2016-06-06] MEDS ORDERED: CeleBREX 200 MG CAP PO SCH (09:00)
[2016-06-06] MEDS: METHADONE HCL 10 MG TAB PO SCH ×3 (09:00→13:36)
--- NOTE | 2016-06-06 09:26 | Gastroenterology Progress Note ---
Progress Note Date of Service: Jun 06, 2016 Subjective Pt evaluation today including: conversation w/ patient, physical exam, chart review, lab review, review of studies, review of inpatient medication list Mr. Kong is a 75 yr old male who underwent L TKA on 05/09/16 and was rehabing at [facility], on Coumadin and ADA when he experienced rectal bleeding on 06/05 and was brought to [facility]. His Hgb was 9.1 on arrival, decreased to 6.9, received 2 units of blood and Hb is now7.8. BUN on arrival 23, today 287. Coumadin is held. INR today is 1.6. He continues with rectal bleeding, yesterday having the one prior to arrival and this morning passing a large loose jessenia BM at 0630, then three smaller ones this morning. Pt is seen and examined while he is resting in bed. He is awake, alert, oriented and denies any abdominal pain. Though he has left sided weakness S/P distant CVA, he appears well, is hungry and is drinking clear liquids and eating Khmer ice. Last sigmoidoscopy was 2013 - normal exam from rectum to sigmoid w stools. Review of Systems Constitutional: No fever Respiratory: No cough Cardiac: No chest pain Abdomen: + GI bleeding (rectal), + nausea, + vomiting (one episode last night) , No pain Male : No dysuria Neuro: No memory loss Psych: No depression symptoms Heme: + abnormal bleeding/bruising (rectal bleeding) Endo: No fatigue Skin: No rash Medications Current Inpatient Medications Medications (Trade) Dose Ordered Sig/Milka Route Start Time Stop Time Status Last Admin Dose Admin Sodium Chloride (Nss 1000ml) 1,000 ml @ 100 mls/hr Q10H IV 06/05/16 16:30 07/05/16 16:29 06/05/16 17:03 100 MLS/HR Acetaminophen (Tylenol Tab) 650 mg Q4H PRN PO 06/05/16 14:30 07/05/16 14:29 Ondansetron HCl (Zofran Inj) 4 mg Q6H PRN IV 06/05/16 14:30 07/05/16 14:29 06/06/16 06:49 4 MG Nitroglycerin (Nitrostat Tab) 0.4 mg UD PRN SL 06/05/16 14:30 07/05/16 14:29 Donepezil HCl (Aricept Tab) 5 mg HS PO 06/05/16 21:00 07/05/16 20:59 06/05/16 19:57 5 MG Duloxetine HCl (Cymbalta Cap) 60 mg DAILY PO 06/06/16 09:00 07/06/16 08:59 06/06/16 08:40 60 MG Gabapentin (Neurontin Cap) 600 mg TID PO 06/05/16 21:00 07/05/16 20:59 06/06/16 08:40 600 MG Albuterol/ Ipratropium (Combivent Respimat Inh) 1 puffs QID PRN INH 06/05/16 14:45 07/05/16 14:44 Levothyroxine Sodium (Synthroid Tab) 25 mcg MoWeFr@0600 PO 06/06/16 06:00 07/06/16 05:59 06/06/16 06:19 25 MCG Levothyroxine Sodium (Synthroid Tab) 50 mcg SuTuThSa@0600 PO 06/07/16 06:00 07/07/16 05:59 Lidocaine (Lidoderm Patch 5%) 2 patch DAILY TD 06/06/16 09:00 07/06/16 08:59 06/06/16 08:40 2 PATCH Methadone HCl (Dolophine Tab) 30 mg BID@0900,1400 PO 06/05/16 16:30 06/19/16 16:29 06/05/16 17:03 30 MG Methadone HCl (Dolophine Tab) 40 mg QAM PO 06/06/16 09:00 06/20/16 08:59 Nortriptyline HCl (Pamelor Cap) 10 mg HS PO 06/05/16 21:00 07/05/16 20:59 06/05/16 19:56 10 MG Oxycodone/ Acetaminophen (Percocet 5-325mg Tab) 1 tab Q4H PRN PO 06/05/16 14:45 06/19/16 14:44 Prednisone (PredniSONE TAB) 5 mg BID PO 06/05/16 21:00 07/05/16 20:59 06/06/16 08:40 5 MG Bimatoprost (Lumigan 0.01%) 1 drops HS OPB 06/05/16 21:00 07/05/16 20:59 06/05/16 19:55 1 DROPS Nystatin (Mycostatin Crm) 1 appln BID EXT 06/05/16 21:00 07/05/16 20:59 06/06/16 08:41 1 APPLN Pantoprazole Sodium (Protonix Tab) 40 mg BID PO 06/05/16 21:00 07/05/16 20:59 06/06/16 08:40 40 MG Miscellaneous (Remove Lidoderm Patch) 1 ea DAILY@21 N/A 06/05/16 21:00 07/05/16 20:59 06/05/16 19:57 1 EA Objective Vital Signs Date Time Temp Pulse Resp B/P Pulse Ox O2 Delivery O2 Flow Rate FiO2 06/06/16 09:19 36.4 103 20 119/69 06/06/16 08:08 36.6 107 18 115/73 92 Room Air 06/06/16 06:15 36.5 85 18 137/79 97 06/06/16 05:15 36.7 75 18 123/73 93 06/06/16 04:13 36.8 76 18 129/75 100 06/06/16 04:00 Room Air 06/06/16 03:45 36.8 72 18 134/71 96 06/06/16 02:47 36.7 76 20 125/64 94 Room Air 06/06/16 02:15 36.8 82 20 150/78 93 06/06/16 01:15 36.7 81 20 127/77 99 2.0 06/06/16 00:15 36.7 78 18 128/65 96 06/06/16 00:01 Room Air 06/05/16 23:45 37.0 85 18 131/76 98 2.0 06/05/16 23:29 36.8 82 18 147/80 98 Nasal Cannula 2.0 06/05/16 20:00 Room Air 06/05/16 19:24 36.7 92 18 134/76 97 Room Air 06/05/16 14:56 95 18 130/85 97 Room Air 06/05/16 13:53 36.5 90 16 129/40 96 Nasal Cannula 2.0 06/05/16 13:17 88 16 125/70 95 Nasal Cannula 2.0 06/05/16 11:10 89 16 99/70 100 Nasal Cannula 2.0 06/05/16 09:49 97 06/05/16 09:26 36.5 92 22 105/80 97 Room Air Physical Exam General Appearance: no apparent distress Neck: no JVD Respiratory/Chest: lungs clear Cardiovascular: regular rate, rhythm, no JVD, no murmur Abdomen: non tender, soft Extremities: non-tender, + pertinent finding (right sided weakness, s/p distant CVA) Neurologic/Psych: alert, normal mood/affect, oriented x 3 Laboratory Results Last 24 Hours Test 06/05/16 11:11 06/05/16 15:40 06/05/16 20:58 06/06/16 03:00 Stool Occult Blood POSITIVE Hemoglobin 8.1 g/dL 6.9 g/dL 8.2 g/dL Hematocrit 25.1 % 21.9 % 25.7 % Test 06/06/16 07:25 White Blood Count 11.04 K/uL Red Blood Count 2.97 M/uL Hemoglobin 7.8 g/dL Hematocrit 24.0 % Mean Corpuscular Volume 80.8 fL Mean Corpuscular Hemoglobin 26.3 pg Mean Corpuscular Hemoglobin Concent 32.5 g/dl RDW Standard Deviation 48.7 fL RDW Coefficient of Variation 16.6 % Platelet Count 255 K/uL Mean Platelet Volume 9.9 fL Prothrombin Time 17.7 SECONDS Prothromb Time International Ratio 1.6 Sodium Level 143 mmol/L Potassium Level 3.8 mmol/L Chloride Level 107 mmol/L Carbon Dioxide Level 25 mmol/L Anion Gap 11.0 mmol/L Blood Urea Nitrogen 27 mg/dl Creatinine 1.30 mg/dl Est Creatinine Clear Calc Drug Dose 68.1 ml/min Estimated GFR () 61.9 Estimated GFR (Non- 53.4 BUN/Creatinine Ratio 20.8 Random Glucose 129 mg/dl Calcium Level 7.8 mg/dl Assessment and Plan Mr. Kong is a 75 yr old male who underwent recent left TKA with prophylactic anticoagulation (now held and INR 1.6) who has rectal bleeding. He has a significant amt of blood loss. Hb 7.9, back to 7.6 after 2 units of blood. Plan: 1. EGD and colonoscopy tomorrow. 2. Clear liquids today, NPO after midnight. I have seen , examined and agree with the plan as outlined by MARCELINO Merino as above. -exam reveals soft abd -Has had several further episodes of rectal bleeding -HD stable -Plan for EGD/Colon tomorrow
[2016-06-06] MEDS: POLYETHYLENE (MIRALAX) 17 GM PACK PO SCH ×2 (11:43→17:22)
[2016-06-06] MEDS ORDERED: BISACODYL 5 MG TABEC PO ONE (12:00)
[2016-06-06] MEDS ORDERED: FUROSEMIDE INJ 20 MG in SYRINGE 0 ML IV ONE ×2 (13:00→14:30)
--- NOTE | 2016-06-06 15:47 | Progress Note ---
Internal Med Progress Note Date of Service: Jun 06, 2016. Provider Documentation: SUBJECTIVE: Patient had significant rectal bleeding in the morning denies any abdominal pain question of small bloody vomitus in the night no nausea now no chest pain or sob hemodynamics stable OBJECTIVE: Vital Signs-as noted below Exam: General-alert and oriented x3. ENT-normal hearing Neck-no neck masses Lungs-cta b/l no wheezing or crackles Heart-s1 and s2 heard regular rate and rhythm no murmurs Abdomen-soft bowel sounds present non tender no distension Extremities-no erythema Neuro-alert and awake and oriented x 3 non focal Lab data as noted below. ASSESSMENT & PLAN: RECTAL BLEED Question of small bloody vomitus on aspirin fro cva which is held recently placed on Lovenox and Coumadin after Left TKA INR 1.7 on presentation hb 6.9 on presentation received vitamin k s/p two units of prbc on day of admission hb 7.8 today am and had significant rectal bleed s/p two more units of prbc today inr 1.6 today. Received one units of ffp and iv vitamin k GI on board and plan for egd and colonoscopy in am. close monitor in PCU. HYPOTENSION 90s/70s on arrival; likely due to above; improving with IVF improved with fluids holding Hyzaar will monitor MINDY creatinine on presentation1.5 (bl 1.0-1.2); likely elevated due to dehydration holding Hyzaar On IVF cr 1.3 today HYPOKALEMIA replace. RECENT L TKA holding Coumadin in setting of GI bleed PT/OT when stable H/O CVA s/p CVA 1996; has residual R sided paresthesias and chronic nerve pain holding ASA in setting of GI bleed CHRONIC PAIN SYNDROME since CVA 1996 On methadone and gabapentin Percocet PRN Holding Celebrex for now in setting of GI bleed HYPOTHYROIDISM On levothyroxine DEPRESSION stable on Aricept and Cymbalta DVT PROPHYLAXIS SCDs only in setting of GI bleed CODE STATUS FULL CODE as per h and p. DISPO monitor in tele to be determined Vital Signs: Date Time Temp Pulse Resp B/P Pulse Ox O2 Delivery O2 Flow Rate FiO2 06/06/16 15:23 Room Air 06/06/16 14:30 36.7 105 18 158/78 94 2.0 06/06/16 14:00 36.9 97 22 151/81 98 06/06/16 13:33 36.9 88 18 155/84 96 06/06/16 12:57 36.6 85 20 145/81 98 06/06/16 12:50 36.7 92 17 125/79 98 06/06/16 12:09 36.6 96 20 147/81 98 06/06/16 12:00 Room Air 06/06/16 11:44 36.3 101 20 111/66 96 06/06/16 11:34 36.4 98 20 133/67 95 06/06/16 10:34 36.7 96 16 112/71 96 2.0 06/06/16 10:11 Nasal Cannula 2.0 06/06/16 09:59 36.2 101 18 117/67 98 06/06/16 09:45 36.5 106 18 119/78 99 06/06/16 09:30 36.4 87 18 115/73 99 06/06/16 09:19 36.4 103 20 119/69 06/06/16 08:08 36.6 107 18 115/73 92 Room Air 06/06/16 06:15 36.5 85 18 137/79 97 06/06/16 05:15 36.7 75 18 123/73 93 06/06/16 04:13 36.8 76 18 129/75 100 06/06/16 04:00 Room Air 06/06/16 03:45 36.8 72 18 134/71 96 06/06/16 02:47 36.7 76 20 125/64 94 Room Air 06/06/16 02:15 36.8 82 20 150/78 93 06/06/16 01:15 36.7 81 20 127/77 99 2.0 06/06/16 00:15 36.7 78 18 128/65 96 06/06/16 00:01 Room Air 06/05/16 23:45 37.0 85 18 131/76 98 2.0 06/05/16 23:29 36.8 82 18 147/80 98 Nasal Cannula 2.0 06/05/16 20:00 Room Air 06/05/16 19:24 36.7 92 18 134/76 97 Room Air Lab Results: Results Past 24 Hours Test 06/05/16 15:40 06/05/16 20:58 06/06/16 03:00 06/06/16 07:25 Range/Units Hemoglobin 8.1 6.9 8.2 7.8 14.0-18.0 g/dL Hematocrit 25.1 21.9 25.7 24.0 42-52 % White Blood Count 11.04 4.8-10.8 K/uL Red Blood Count 2.97 4.7-6.1 M/uL Mean Corpuscular Volume 80.8 80-100 fL Mean Corpuscular Hemoglobin 26.3 25-34 pg Mean Corpuscular Hemoglobin Concent 32.5 32-36 g/dl RDW Standard Deviation 48.7 36.4-46.3 fL RDW Coefficient of Variation 16.6 11.5-14.5 % Platelet Count 255 130-400 K/uL Mean Platelet Volume 9.9 7.4-10.4 fL Prothrombin Time 17.7 9.0-12.0 SECONDS Prothromb Time International Ratio 1.6 0.9-1.1 Sodium Level 143 136-145 mmol/L Potassium Level 3.8 3.5-5.1 mmol/L Chloride Level 107 98-107 mmol/L Carbon Dioxide Level 25 21-32 mmol/L Anion Gap 11.0 3-11 mmol/L Blood Urea Nitrogen 27 7-18 mg/dl Creatinine 1.30 0.60-1.40 mg/dl Est Creatinine Clear Calc Drug Dose 68.1 ml/min Estimated GFR () 61.9 Estimated GFR (Non- 53.4 BUN/Creatinine Ratio 20.8 10-20 Random Glucose 129 70-99 mg/dl Calcium Level 7.8 8.5-10.1 mg/dl Test 06/06/16 12:00 Range/Units Microbiology Results 06/06/16 Shiga Toxin Test, Received Pending 06/06/16 Stool Culture, Received Pending 06/06/16 C.difficile Toxin B Gene (PCR) - Final, Complete No C. difficile toxin B gene detected
[2016-06-06 16:21] LABS: HEMATOCRIT 25.1 % (42-52)
[2016-06-06] MEDS: DONEPEZIL HCL 5 MG TAB PO SCH (19:56)
[2016-06-06] MEDS: NORTRIPTYLINE HCL 10 MG CAP PO SCH (19:56)
[2016-06-06] MEDS: BIMATOPROST 0.01% OP SOLN 2.5 ML BTL OPB SCH (19:57)
[2016-06-06 20:23] LABS: HEMATOCRIT 23.5 % (42-52)
[2016-06-07] VITALS (13 sets, daily range): BP systolic 106–158; BP diastolic 53–99; PULSE 66–85; TEMP 36.5–37.3; O2SAT 94–98
[2016-06-07] MEDS: LEVOTHYROXINE 50 MCG TAB PO SCH (05:18)
[2016-06-07] MEDS: SODIUM CHLORIDE 0.9% 1000ML 1,000 ML IV SCH (05:18)
[2016-06-07] MEDS: DULOXETINE HCL 60 MG CAP PO SCH (07:40)
[2016-06-07] MEDS: GABAPENTIN 300 MG CAP PO SCH ×3 (07:41→20:45)
[2016-06-07] MEDS: PANTOprazole SOD 40 MG TAB PO SCH ×2 (07:42→20:42)
[2016-06-07] MEDS: METHADONE HCL 10 MG TAB PO SCH ×3 (07:42→20:49)
[2016-06-07] MEDS: LIDODERM (LIDOCAINE) PATCH 5% TD SCH (07:43)
[2016-06-07 07:45] LABS: HEMATOCRIT 21.2 % (42-52); MEAN CELL VOLUME 83.1 fL (80-100); MEAN CORPUSCULAR HEMOGLOBIN 27.8 pg (25-34); MEAN CORPUSCULAR HGB CONC 33.5 g/dl (32-36); MEAN PLATELET VOLUME 9.7 fL (7.4-10.4); PLATELET COUNT 154 K/uL (130-400); RED BLOOD COUNT 2.55 M/uL (4.7-6.1); WHITE BLOOD COUNT 9.18 K/uL (4.8-10.8)
[2016-06-07] MEDS: NYSTATIN CR 15 GM TUBE EXT SCH ×2 (07:46→20:46)
[2016-06-07 08:01] LABS: ANISOCYTOSIS PRESENT; BASO % 0.3 %; BASO ABS # 0.03 K/uL (0-0.2); COMPLETE YES; EOS % 2.1 %; HYPERSEGMENTED POLYS 1+; HYPOCHROMIA PRESENT; IG% 0.9 %; LYMPH % 20.9 %; LYMPH ABS # 1.92 K/uL (1.2-3.4); NEUT % 68.8 %; TOXIC GRANULATION 1+
[2016-06-07 08:09] LABS: BUN/CREATININE RATIO 14.5 (10-20); CALCIUM 7.9 mg/dl (8.5-10.1); CREATININE 1.2 mg/dl (0.60-1.40); MAGNESIUM 1.6 mg/dl (1.8-2.4); POTASSIUM 3.4 mmol/L (3.5-5.1)
[2016-06-07] MEDS ORDERED: FENTANYL CITRATE INJ 50 MCG/1 ML 2 ML VIAL ONE (09:36)
[2016-06-07] MEDS ORDERED: PROPOFOL IV EMULSION 10 MG/ML 20 ML VIAL IV ONE (09:36)
[2016-06-07] MEDS ORDERED: KETAMINE HCL INJ 50 MG/ML 10 ML VIAL ONE (09:36)
[2016-06-07] MEDS ORDERED: LIDOCAINE HCL 2% 2 ML VIAL (20MG/ML) ONE (09:36)
[2016-06-07] MEDS ORDERED: MIDAZOLAM HCL 1 MG/ML 2ML VIAL ONE (09:53)
--- NOTE | 2016-06-07 10:54 | GI REPORT ---
Procedure Date: 06/07/2016 10:04 AM Procedure: Upper GI endoscopy Indications: Hematochezia Medicines: General Anesthesia Complications: No immediate complications. Estimated blood loss: None. Estimated Blood Loss: Estimated blood loss: none. Procedure: Pre-Anesthesia Assessment: - Pre-Anesthesia Assessment: - Prior to the procedure, a History and Physical was performed, and patient medications, allergies and sensitivities were reviewed. The patient's tolerance of previous anesthesia was reviewed. Please see [employer] for complete details. - The risks and benefits of the procedure and the sedation options and risks were discussed with the patient. All questions were answered and informed consent was obtained. - Patient identification and proposed procedure were verified prior to the procedure by the physician and the nurse. The procedure was verified in the pre-procedure area in the procedure room. After obtaining informed consent, the endoscope was passed carefully and meticuously under direct vision and only advanced when the lumen was clearly identified, C02 insuflation was utilized throughout the entirity of the procedure. Throughout the procedure, the patient's blood pressure, pulse, and oxygen saturations were monitored continuously. After obtaining informed consent, the endoscope was passed under direct vision. Throughout the procedure, the patient's blood pressure, pulse, and oxygen saturations were monitored continuously. The scope was introduced through the mouth, and advanced to the second part of duodenum. The upper GI endoscopy was accomplished without difficulty. The patient tolerated the procedure well. Findings: The examined esophagus was normal. The entire examined stomach was normal. The examined duodenum was normal. Duodenal diverticulum was noted No bleeding noted Impression: - Normal esophagus. - Normal stomach. - Normal examined duodenum. - No specimens collected. Recommendation: - Discharge patient to home (with escort). - Perform a colonoscopy today. Arsh Méndez MD 06/07/2016 10:54:26 AM This report has been signed electronically. Note Initiated On: 06/07/2016 10:04 AM
--- NOTE | 2016-06-07 10:58 | GI REPORT ---
Procedure Date: 06/07/2016 10:13 AM Procedure: Colonoscopy Indications: Hematochezia Medicines: General Anesthesia Complications: No immediate complications. Estimated blood loss: None. Estimated Blood Loss: Estimated blood loss: none. Procedure: Pre-Anesthesia Assessment: - Pre-Anesthesia Assessment: - Prior to the procedure, a History and Physical was performed, and patient medications, allergies and sensitivities were reviewed. The patient's tolerance of previous anesthesia was reviewed. Please see [employer] for complete details. - The risks and benefits of the procedure and the sedation options and risks were discussed with the patient. All questions were answered and informed consent was obtained. - Patient identification and proposed procedure were verified prior to the procedure by the physician and the nurse. The procedure was verified in the pre-procedure area in the procedure room. After obtaining informed consent, the endoscope was passed carefully and meticuously under direct vision and only advanced when the lumen was clearly identified, C02 insuflation was utilized throughout the entirity of the procedure. Throughout the procedure, the patient's blood pressure, pulse, and oxygen saturations were monitored continuously. After I obtained informed consent, the scope was passed under direct vision. Throughout the procedure, the patient's blood pressure, pulse, and oxygen saturations were monitored continuously. The scope was introduced through the anus and advanced to the cecum, identified by appendiceal orifice and ileocecal valve. The colonoscopy was performed without difficulty. The patient tolerated the procedure well. The quality of the bowel preparation was poor. Findings: Multiple small-mouthed diverticula were found in the sigmoid colon and in the descending colon. The terminal ileum appeared normal. Old blood was found in the sigmoid colon and in the descending colon. No active or recent bleeding was noted, the colon did appear generally edematous. Impression: - Preparation of the colon was poor. - Diverticulosis in the sigmoid colon and in the descending colon. - The examined portion of the ileum was normal. - Blood in the sigmoid colon and in the descending colon. - No specimens collected. Recommendation: - [facility] care. - Given appearances, presentation, and findings this is likely a diverticular bleed that has stopped. - If has evidence of rebleeding then would suggest bleeding scan Arsh Méndez MD 06/07/2016 10:58:27 AM This report has been signed electronically. Note Initiated On: 06/07/2016 10:13 AM
--- NOTE | 2016-06-07 11:04 | Progress Note ---
Progress Note Mr. Kong underwent EGD and colonoscopy today. EGD with duodenal diverticulum. Colonoscopy without blood in the TI but with old blood in the colon. Diverticulosis in the descending and sigmoid colon. No current bleeding. OK to provide a regular consistency diet. OK to continue aspirin, Lovenox but would wait at least 2 days before restarting coumadin.
--- NOTE | 2016-06-07 11:16 | Anesthesiology Progress Note ---
Anesthesia Post Op Note Date & Time Jun 07, 2016 at 11:16 Vital Signs Pain Intensity: 0 Vital Signs Past 12 Hours Date Time Temp Pulse Resp B/P Pulse Ox O2 Delivery O2 Flow Rate FiO2 06/07/16 11:13 74 18 144/66 96 Room Air 06/07/16 10:56 76 18 125/59 95 Room Air 06/07/16 09:34 36.8 77 20 136/64 98 Room Air 06/07/16 09:25 36.8 76 20 136/64 98 Room Air 06/07/16 08:15 36.7 77 18 124/55 95 Room Air 06/07/16 08:00 Room Air 06/07/16 04:00 Room Air 06/07/16 03:05 36.9 84 20 154/80 96 Room Air 06/07/16 00:03 37.3 85 20 158/75 94 Room Air 06/07/16 00:00 Room Air Notes Mental Status: alert / awake / arousable, participated in evaluation Pt Amnestic to Procedure: Yes Nausea / Vomiting: adequately controlled Pain: adequately controlled Airway Patency, RR, SpO2: stable & adequate BP & HR: stable & adequate Hydration State: stable & adequate Anesthetic Complications: no major complications apparent
[2016-06-07] MEDS ORDERED: POTASSIUM CHLORIDE 10 MEQ TABCR PO ONE (11:30)
[2016-06-07] MEDS ORDERED: MAGNESIUM SULFATE 1GM / D5W 1 GM in PREMIXED IN D5W 100 ML IV ONE (11:30)
[2016-06-07] MEDS ORDERED: ACETAMINOPHEN 325 MG TAB PO ONE (11:45)
[2016-06-07 12:21] LABS: HEMATOCRIT 22.2 % (42-52)
[2016-06-07 12:32] LABS: INR 1.1 (0.9-1.1); PROTHROMBIN TIME (PATIENT) 11.6 SECONDS (9.0-12.0)
[2016-06-07] MEDS ORDERED: FUROSEMIDE INJ 20 MG in SYRINGE 0 ML IV ONE (13:00)
[2016-06-07 16:59] LABS: HEMATOCRIT 27.6 % (42-52)
--- NOTE | 2016-06-07 17:20 | Progress Note ---
Internal Med Progress Note Date of Service: Jun 07, 2016. Provider Documentation: SUBJECTIVE: Patient had significant rectal bleeding yesterday no more bleeding today s/p egd and colonoscopy no active bleeding on the scopes afebrile no sob tolerating diet OBJECTIVE: Vital Signs-as noted below Exam: General-alert and oriented x3. ENT-normal hearing Neck-no neck masses Lungs-cta b/l no wheezing or crackles Heart-s1 and s2 heard regular rate and rhythm no murmurs Abdomen-soft bowel sounds present non tender no distension Extremities-no erythema Neuro-alert and awake and oriented x 3 non focal Lab data as noted below. ASSESSMENT & PLAN: RECTAL BLEED Question of small bloody vomitus on aspirin fro cva which is held recently placed on Lovenox and Coumadin after Left TKA INR 1.7 on presentation hb 6.9 on presentation received vitamin k s/p two units of prbc on day of admission hb 7.8 next day 06/06/16 and also had significant rectal bleed s/p two more units of prbc on 06/06/16 inr 1.6 on 06/06/16. Received one units of ffp and iv vitamin k GI on board and s/p egd and colonoscopy today 06/07/16- no active signs of bleeding but have significant descending and sigmoid diverticulosis hb 7.1 today in am 06/07/16 and s/p two more units of prbc and hb later in the day 9.4 received total of 6units of prbc. currently stable and tolerating diet will monitor HYPOTENSION 90s/70s on arrival; likely due to above; improving with IVF improved with fluids holding [facility] will monitor MINDY creatinine on presentation1.5 (bl 1.0-1.2); likely elevated due to dehydration holding [facility] received prbc and IVF cr 1.2 today HYPOKALEMIA replace. RECENT L TKA holding Coumadin in setting of GI bleed PT/OT when stable H/O CVA s/p CVA 1996; has residual R sided paresthesias and chronic nerve pain holding ASA in setting of GI bleed CHRONIC PAIN SYNDROME since CVA 1996 On methadone and gabapentin Percocet PRN Holding Celebrex for now in setting of GI bleed HYPOTHYROIDISM On levothyroxine DEPRESSION stable on Aricept and Cymbalta DVT PROPHYLAXIS SCDs only in setting of GI bleed CODE STATUS FULL CODE as per h and p. DISPO monitor in tele pt/ot social service for d/c planning Vital Signs: Date Time Temp Pulse Resp B/P Pulse Ox O2 Delivery O2 Flow Rate FiO2 06/07/16 15:35 36.7 76 14 121/68 96 Room Air 06/07/16 15:35 36.7 76 14 121/68 96 06/07/16 15:20 77 16 121/67 95 06/07/16 14:20 78 15 106/53 95 06/07/16 13:20 84 16 125/72 96 06/07/16 12:55 36.7 77 15 147/71 97 06/07/16 12:40 36.7 74 13 127/72 96 06/07/16 12:40 36.7 74 13 127/72 96 Room Air 06/07/16 12:05 Room Air 06/07/16 11:27 74 20 143/67 94 Room Air 06/07/16 11:13 74 18 144/66 96 Room Air 06/07/16 10:56 76 18 125/59 95 Room Air 06/07/16 09:34 36.8 77 20 136/64 98 Room Air 06/07/16 09:25 36.8 76 20 136/64 98 Room Air 06/07/16 08:15 36.7 77 18 124/55 95 Room Air 06/07/16 08:00 Room Air 06/07/16 04:00 Room Air 06/07/16 03:05 36.9 84 20 154/80 96 Room Air 06/07/16 00:03 37.3 85 20 158/75 94 Room Air 06/07/16 00:00 Room Air 06/06/16 20:00 93 Room Air 06/06/16 19:50 36.6 86 18 150/87 93 Room Air Lab Results: Results Past 24 Hours Test 06/06/16 20:03 06/07/16 07:05 06/07/16 11:50 06/07/16 11:55 Range/Units Hemoglobin 8.0 7.1 7.6 14.0-18.0 g/dL Hematocrit 23.5 21.2 22.2 42-52 % White Blood Count 9.18 4.8-10.8 K/uL Red Blood Count 2.55 4.7-6.1 M/uL Mean Corpuscular Volume 83.1 80-100 fL Mean Corpuscular Hemoglobin 27.8 25-34 pg Mean Corpuscular Hemoglobin Concent 33.5 32-36 g/dl Platelet Count 154 130-400 K/uL Mean Platelet Volume 9.7 7.4-10.4 fL Neutrophils (%) (Auto) 68.8 % Lymphocytes (%) (Auto) 20.9 % Monocytes (%) (Auto) 7.0 % Eosinophils (%) (Auto) 2.1 % Basophils (%) (Auto) 0.3 % Neutrophils # (Auto) 6.32 1.4-6.5 K/uL Lymphocytes # (Auto) 1.92 1.2-3.4 K/uL Monocytes # (Auto) 0.64 0.11-0.59 K/uL Eosinophils # (Auto) 0.19 0-0.5 K/uL Basophils # (Auto) 0.03 0-0.2 K/uL RDW Standard Deviation 48.0 36.4-46.3 fL RDW Coefficient of Variation 16.0 11.5-14.5 % Immature Granulocyte % (Auto) 0.9 % Immature Granulocyte # (Auto) 0.08 0.00-0.02 K/uL Nucleated RBC Absolute Count (auto) 0.02 0-0 K/uL Nucleated Red Blood Cells % 0.2 % Hypersegmented Polys 1+ Toxic Granulation 1+ Hypochromasia PRESENT Anisocytosis PRESENT Sodium Level 143 136-145 mmol/L Potassium Level 3.4 3.5-5.1 mmol/L Chloride Level 108 98-107 mmol/L Carbon Dioxide Level 27 21-32 mmol/L Anion Gap 8.0 3-11 mmol/L Blood Urea Nitrogen 17 7-18 mg/dl Creatinine 1.20 0.60-1.40 mg/dl Est Creatinine Clear Calc Drug Dose 74.3 ml/min Estimated GFR () 68.1 Estimated GFR (Non- 58.8 BUN/Creatinine Ratio 14.5 10-20 Random Glucose 89 70-99 mg/dl Calcium Level 7.9 8.5-10.1 mg/dl Magnesium Level 1.6 1.8-2.4 mg/dl Prothrombin Time 11.6 9.0-12.0 SECONDS Prothromb Time International Ratio 1.1 0.9-1.1 Test 06/07/16 16:41 Range/Units Hemoglobin 9.4 14.0-18.0 g/dL Hematocrit 27.6 42-52 %
[2016-06-07] MEDS: MAGNESIUM OXIDE 400 MG TAB PO SCH (20:42)
[2016-06-07] MEDS: DONEPEZIL HCL 5 MG TAB PO SCH (20:43)
[2016-06-07] MEDS: NORTRIPTYLINE HCL 10 MG CAP PO SCH (20:44)
[2016-06-07] MEDS: BIMATOPROST 0.01% OP SOLN 2.5 ML BTL OPB SCH (20:46)
[2016-06-07 21:04] LABS: HEMATOCRIT 25.5 % (42-52)
[2016-06-07] MEDS ORDERED: LORAZEPAM 0.5 MG TAB PO ONE (22:00)
[2016-06-08] VITALS (8 sets, daily range): BP systolic 130–159; BP diastolic 56–80; PULSE 64–76; TEMP 36.4–37; O2SAT 95–98
[2016-06-08] MEDS: LEVOTHYROXINE 25 MCG TAB PO SCH (05:50)
[2016-06-08 07:08] LABS: BASO % 0.2 %; BASO ABS # 0.01 K/uL (0-0.2); EOS % 2.7 %; HEMATOCRIT 25.7 % (42-52); IG% 0.5 %; LYMPH % 17.1 %; MEAN CELL VOLUME 84.3 fL (80-100); MEAN CORPUSCULAR HEMOGLOBIN 27.9 pg (25-34); MEAN CORPUSCULAR HGB CONC 33.1 g/dl (32-36); NEUT % 72.5 %; PLATELET COUNT 128 K/uL (130-400); RED BLOOD COUNT 3.05 M/uL (4.7-6.1); WHITE BLOOD COUNT 5.84 K/uL (4.8-10.8)
[2016-06-08 07:12] LABS: PROTHROMBIN TIME (PATIENT) 10.7 SECONDS (9.0-12.0)
[2016-06-08 07:27] LABS: COMPLETE YES
[2016-06-08 07:44] LABS: BUN/CREATININE RATIO 12.1 (10-20); CALCIUM 7.9 mg/dl (8.5-10.1); CREATININE 1.1 mg/dl (0.60-1.40); MAGNESIUM 1.9 mg/dl (1.8-2.4); POTASSIUM 3.5 mmol/L (3.5-5.1)
[2016-06-08] MEDS: PANTOprazole SOD 40 MG TAB PO SCH ×2 (07:56→21:36)
[2016-06-08] MEDS: DULOXETINE HCL 60 MG CAP PO SCH (07:56)
[2016-06-08] MEDS: GABAPENTIN 300 MG CAP PO SCH ×3 (07:56→21:35)
[2016-06-08] MEDS: LIDODERM (LIDOCAINE) PATCH 5% TD SCH (07:57)
[2016-06-08] MEDS: MAGNESIUM OXIDE 400 MG TAB PO SCH ×2 (07:57→21:34)
[2016-06-08] MEDS: METHADONE HCL 10 MG TAB PO SCH ×3 (08:01→21:39)
[2016-06-08] MEDS: NYSTATIN CR 15 GM TUBE EXT SCH ×2 (08:01→21:33)
--- NOTE | 2016-06-08 13:01 | Gastroenterology Progress Note ---
Progress Note Date of Service: Jun 08, 2016 Subjective Pt evaluation today including: conversation w/ patient, physical exam, chart review, lab review, review of studies, review of inpatient medication list Mr. Kong is a 75 yr old male admitted for rectal bleeding. Today feels well. One BM today but with minimal blood. Hb on arrival 9.1. Today 8.5 after a total of 6 units of RBC. Continues w/o abdominal pain. BUN normal. Review of Systems Constitutional: No fever Respiratory: No cough Cardiac: No chest pain Abdomen: + GI bleeding, + see HPI, No constipation, No diarrhea, No nausea, No pain, No vomiting Male : No dysuria Neuro: + paralysis (right sided weakness S/P distant stroke), No memory loss Psych: No depression symptoms Heme: + abnormal bleeding/bruising (some bruising on the forarm) Endo: + fatigue (much improved) Skin: No rash Medications Current Inpatient Medications Medications (Trade) Dose Ordered Sig/Milka Route Start Time Stop Time Status Last Admin Dose Admin Acetaminophen (Tylenol Tab) 650 mg Q4H PRN PO 06/05/16 14:30 07/05/16 14:29 Ondansetron HCl (Zofran Inj) 4 mg Q6H PRN IV 06/05/16 14:30 07/05/16 14:29 06/06/16 06:49 4 MG Nitroglycerin (Nitrostat Tab) 0.4 mg UD PRN SL 06/05/16 14:30 07/05/16 14:29 Donepezil HCl (Aricept Tab) 5 mg HS PO 06/05/16 21:00 07/05/16 20:59 06/07/16 20:43 5 MG Duloxetine HCl (Cymbalta Cap) 60 mg DAILY PO 06/06/16 09:00 07/06/16 08:59 06/08/16 07:56 60 MG Gabapentin (Neurontin Cap) 600 mg TID PO 06/05/16 21:00 07/05/16 20:59 06/08/16 07:56 600 MG Albuterol/ Ipratropium (Combivent Respimat Inh) 1 puffs QID PRN INH 06/05/16 14:45 07/05/16 14:44 Levothyroxine Sodium (Synthroid Tab) 25 mcg MoWeFr@0600 PO 06/06/16 06:00 07/06/16 05:59 06/08/16 05:50 25 MCG Levothyroxine Sodium (Synthroid Tab) 50 mcg SuTuThSa@0600 PO 06/07/16 06:00 07/07/16 05:59 06/07/16 05:18 50 MCG Lidocaine (Lidoderm Patch 5%) 2 patch DAILY TD 06/06/16 09:00 07/06/16 08:59 06/06/16 08:40 2 PATCH Methadone HCl (Dolophine Tab) 40 mg QAM PO 06/06/16 09:00 06/20/16 08:59 06/08/16 08:01 40 MG Nortriptyline HCl (Pamelor Cap) 10 mg HS PO 06/05/16 21:00 07/05/16 20:59 06/07/16 20:44 10 MG Oxycodone/ Acetaminophen (Percocet 5-325mg Tab) 1 tab Q4H PRN PO 06/05/16 14:45 06/19/16 14:44 Prednisone (PredniSONE TAB) 5 mg BID PO 06/05/16 21:00 07/05/16 20:59 06/08/16 07:57 5 MG Bimatoprost (Lumigan 0.01%) 1 drops HS OPB 06/05/16 21:00 07/05/16 20:59 06/07/16 20:46 1 DROPS Nystatin (Mycostatin Crm) 1 appln BID EXT 06/05/16 21:00 07/05/16 20:59 06/08/16 08:01 1 APPLN Pantoprazole Sodium (Protonix Tab) 40 mg BID PO 06/05/16 21:00 07/05/16 20:59 06/08/16 07:56 40 MG Miscellaneous (Remove Lidoderm Patch) 1 ea DAILY@21 N/A 06/05/16 21:00 07/05/16 20:59 06/05/16 19:57 1 EA Methadone HCl (Dolophine Tab) 30 mg BID@1400,2100 PO 06/07/16 14:00 06/21/16 13:59 06/07/16 20:49 30 MG Magnesium Oxide (Mag-Ox Tab) 400 mg BID PO 06/07/16 21:00 07/07/16 20:59 06/08/16 07:57 400 MG Objective Vital Signs Date Time Temp Pulse Resp B/P Pulse Ox O2 Delivery O2 Flow Rate FiO2 06/08/16 12:00 95 Room Air 06/08/16 11:58 36.4 75 18 130/69 95 Room Air 06/08/16 08:00 36.8 67 20 147/56 98 Room Air 06/08/16 08:00 95 Room Air 06/08/16 05:01 37.0 64 22 159/80 95 Room Air 06/08/16 04:00 97 Room Air 2.0 06/08/16 00:01 97 Room Air 06/07/16 23:59 37.1 66 18 147/80 97 Room Air 06/07/16 20:00 96 Room Air 06/07/16 18:58 36.5 73 18 154/99 96 Room Air 06/07/16 16:00 Room Air 06/07/16 15:35 36.7 76 14 121/68 96 Room Air 06/07/16 15:35 36.7 76 14 121/68 96 06/07/16 15:20 77 16 121/67 95 06/07/16 14:20 78 15 106/53 95 06/07/16 13:20 84 16 125/72 96 06/07/16 12:55 36.7 77 15 147/71 97 Physical Exam General Appearance: no apparent distress Neck: no JVD Respiratory/Chest: lungs clear Cardiovascular: regular rate, rhythm, no JVD, no murmur Abdomen: non tender, soft Extremities: non-tender Neurologic/Psych: alert, normal mood/affect, oriented x 3 Skin: normal color, no jaundice, no rash Laboratory Results Last 24 Hours Test 06/07/16 16:41 06/07/16 20:23 06/08/16 06:20 06/08/16 08:49 Hemoglobin 9.4 g/dL 8.5 g/dL 8.5 g/dL Hematocrit 27.6 % 25.5 % 25.7 % White Blood Count 5.84 K/uL Red Blood Count 3.05 M/uL Mean Corpuscular Volume 84.3 fL Mean Corpuscular Hemoglobin 27.9 pg Mean Corpuscular Hemoglobin Concent 33.1 g/dl Platelet Count 128 K/uL Mean Platelet Volume 10.0 fL Neutrophils (%) (Auto) 72.5 % Lymphocytes (%) (Auto) 17.1 % Monocytes (%) (Auto) 7.0 % Eosinophils (%) (Auto) 2.7 % Basophils (%) (Auto) 0.2 % Neutrophils # (Auto) 4.23 K/uL Lymphocytes # (Auto) 1.00 K/uL Monocytes # (Auto) 0.41 K/uL Eosinophils # (Auto) 0.16 K/uL Basophils # (Auto) 0.01 K/uL RDW Standard Deviation 49.2 fL RDW Coefficient of Variation 16.1 % Immature Granulocyte % (Auto) 0.5 % Immature Granulocyte # (Auto) 0.03 K/uL Red Blood Cell Morphology Unremarkable Prothrombin Time 10.7 SECONDS Prothromb Time International Ratio 1.0 Sodium Level 145 mmol/L Potassium Level 3.5 mmol/L Chloride Level 108 mmol/L Carbon Dioxide Level 28 mmol/L Anion Gap 9.0 mmol/L Blood Urea Nitrogen 13 mg/dl Creatinine 1.10 mg/dl Est Creatinine Clear Calc Drug Dose 81.1 ml/min Estimated GFR () 75.7 Estimated GFR (Non- 65.3 BUN/Creatinine Ratio 12.1 Random Glucose 92 mg/dl Calcium Level 7.9 mg/dl Magnesium Level 1.9 mg/dl Lab Scanned Report Blood Transfusion Assessment and Plan Mr. Kong is a 75 yr old male who underwent recent left TKA with prophylactic anticoagulation (now held and INR 1.6) who experienced rectal bleeding. Hb today 9has rectal bleeding. He has a significant amt of blood loss. Hb 8.5 after 6 units blood. Bleeding has slowed if not stopped. EGD/colonoscopy most suggestive of a diverticular bleed but no active bleeding at the time of the endoscopy. Plan: 1. Continue regular diet. 2 May resume aspirin. 3. Would avoid anticoagulation if possible. 4. GI will sign off. Please notify us if any new/worsening GI issues. I have seen , examined and agree with the plan as outlined by MARCELINO Merino as above. -exam reveals soft abd -no further bleeding
--- NOTE | 2016-06-08 17:28 | Progress Note ---
Internal Med Progress Note Date of Service: Jun 08, 2016. Provider Documentation: SUBJECTIVE: no more episodes of bleeding tolerating diet afebrile denies chest pain or sob no abdominal pain OBJECTIVE: Vital Signs-as noted below Exam: General-alert and oriented x3. ENT-normal hearing Neck-no neck masses Lungs-cta b/l no wheezing or crackles Heart-s1 and s2 heard regular rate and rhythm no murmurs Abdomen-soft bowel sounds present non tender no distension Extremities-no erythema Neuro-alert and awake and oriented x 3 non focal Lab data as noted below. ASSESSMENT & PLAN: RECTAL BLEED Question of small bloody vomitus on aspirin fro cva which is held recently placed on Lovenox and Coumadin after Left TKA INR 1.7 on presentation hb 6.9 on presentation received vitamin k s/p two units of prbc on day of admission hb 7.8 next day 06/06/16 and also had significant rectal bleed s/p two more units of prbc on 06/06/16 inr 1.6 on 06/06/16. Received one units of ffp and iv vitamin k GI on board and s/p egd and colonoscopy today 06/07/16- no active signs of bleeding but have significant descending and sigmoid diverticulosis hb 7.1 today in am 06/07/16 and s/p two more units of prbc and hb later in the day 9.4 received total of 6units of prbc. currently stable and tolerating diet no more epsiodes of bleeding hb 8.5 today will monitor HYPOTENSION 90s/70s on arrival; likely due to above; improving with IVF improved with fluids holding Hyzaar stable will monitor MINDY creatinine on presentation1.5 (bl 1.0-1.2); likely elevated due to dehydration holding Hyzaar received prbc and IVF cr 1.1 today HYPOKALEMIA replace. RECENT L TKA holding Coumadin in setting of GI bleed PT/OT H/O CVA s/p CVA 1996; has residual R sided paresthesias and chronic nerve pain holding ASA in setting of GI bleed Gi ok to restart aspirin. CHRONIC PAIN SYNDROME since CVA 1996 On methadone and gabapentin Percocet PRN Holding Celebrex for now in setting of GI bleed HYPOTHYROIDISM On levothyroxine DEPRESSION stable on Aricept and Cymbalta DVT PROPHYLAXIS SCDs only in setting of GI bleed CODE STATUS FULL CODE as per h and p. DISPO transfer to medical floor pt/ot plan for [facility] for d/c planning Vital Signs: Date Time Temp Pulse Resp B/P Pulse Ox O2 Delivery O2 Flow Rate FiO2 06/08/16 16:19 97 Room Air 06/08/16 15:51 36.7 76 20 130/76 97 Room Air 06/08/16 12:00 95 Room Air 06/08/16 11:58 36.4 75 18 130/69 95 Room Air 06/08/16 08:00 36.8 67 20 147/56 98 Room Air 06/08/16 08:00 95 Room Air 06/08/16 05:01 37.0 64 22 159/80 95 Room Air 06/08/16 04:00 97 Room Air 2.0 06/08/16 00:01 97 Room Air 06/07/16 23:59 37.1 66 18 147/80 97 Room Air 06/07/16 20:00 96 Room Air 06/07/16 18:58 36.5 73 18 154/99 96 Room Air Lab Results: Results Past 24 Hours Test 06/07/16 20:23 06/08/16 06:20 06/08/16 08:49 Range/Units Hemoglobin 8.5 8.5 14.0-18.0 g/dL Hematocrit 25.5 25.7 42-52 % White Blood Count 5.84 4.8-10.8 K/uL Red Blood Count 3.05 4.7-6.1 M/uL Mean Corpuscular Volume 84.3 80-100 fL Mean Corpuscular Hemoglobin 27.9 25-34 pg Mean Corpuscular Hemoglobin Concent 33.1 32-36 g/dl Platelet Count 128 130-400 K/uL Mean Platelet Volume 10.0 7.4-10.4 fL Neutrophils (%) (Auto) 72.5 % Lymphocytes (%) (Auto) 17.1 % Monocytes (%) (Auto) 7.0 % Eosinophils (%) (Auto) 2.7 % Basophils (%) (Auto) 0.2 % Neutrophils # (Auto) 4.23 1.4-6.5 K/uL Lymphocytes # (Auto) 1.00 1.2-3.4 K/uL Monocytes # (Auto) 0.41 0.11-0.59 K/uL Eosinophils # (Auto) 0.16 0-0.5 K/uL Basophils # (Auto) 0.01 0-0.2 K/uL RDW Standard Deviation 49.2 36.4-46.3 fL RDW Coefficient of Variation 16.1 11.5-14.5 % Immature Granulocyte % (Auto) 0.5 % Immature Granulocyte # (Auto) 0.03 0.00-0.02 K/uL Red Blood Cell Morphology Unremarkable Prothrombin Time 10.7 9.0-12.0 SECONDS Prothromb Time International Ratio 1.0 0.9-1.1 Sodium Level 145 136-145 mmol/L Potassium Level 3.5 3.5-5.1 mmol/L Chloride Level 108 98-107 mmol/L Carbon Dioxide Level 28 21-32 mmol/L Anion Gap 9.0 3-11 mmol/L Blood Urea Nitrogen 13 7-18 mg/dl Creatinine 1.10 0.60-1.40 mg/dl Est Creatinine Clear Calc Drug Dose 81.1 ml/min Estimated GFR () 75.7 Estimated GFR (Non- 65.3 BUN/Creatinine Ratio 12.1 10-20 Random Glucose 92 70-99 mg/dl Calcium Level 7.9 8.5-10.1 mg/dl Magnesium Level 1.9 1.8-2.4 mg/dl Lab Scanned Report Blood Transfusion Tag [id number]
[2016-06-08] MEDS: NORTRIPTYLINE HCL 10 MG CAP PO SCH (21:34)
[2016-06-08] MEDS: DONEPEZIL HCL 5 MG TAB PO SCH (21:35)
[2016-06-08] MEDS: BIMATOPROST 0.01% OP SOLN 2.5 ML BTL OPB SCH (21:37)
[2016-06-09] VITALS (11 sets, daily range): BP systolic 113–145; BP diastolic 58–80; PULSE 69–92; TEMP 36.4–38.6; O2SAT 95–98
[2016-06-09] MEDS: LEVOTHYROXINE 50 MCG TAB PO SCH (06:16)
[2016-06-09 07:30] LABS: BASO % 0.3 %; BASO ABS # 0.02 K/uL (0-0.2); EOS % 3.5 %; HEMATOCRIT 23.2 % (42-52); IG% 0.7 %; LYMPH % 18.3 %; MEAN CELL VOLUME 86.2 fL (80-100); MEAN CORPUSCULAR HEMOGLOBIN 28.6 pg (25-34); MEAN CORPUSCULAR HGB CONC 33.2 g/dl (32-36); MEAN PLATELET VOLUME 10.3 fL (7.4-10.4); MONO % 8.6 %; NEUT % 68.6 %; PLATELET COUNT 147 K/uL (130-400); RED BLOOD COUNT 2.69 M/uL (4.7-6.1); WHITE BLOOD COUNT 6.02 K/uL (4.8-10.8)
[2016-06-09 07:36] LABS: PROTHROMBIN TIME (PATIENT) 10.6 SECONDS (9.0-12.0)
[2016-06-09] MEDS: LIDODERM (LIDOCAINE) PATCH 5% TD SCH (08:00)
[2016-06-09] MEDS: NYSTATIN CR 15 GM TUBE EXT SCH (08:00)
[2016-06-09 08:11] LABS: BUN/CREATININE RATIO 12.4 (10-20); CALCIUM 7.9 mg/dl (8.5-10.1); CREATININE 1.1 mg/dl (0.60-1.40); POTASSIUM 3.6 mmol/L (3.5-5.1)
[2016-06-09 08:29] LABS: COMPLETE YES
[2016-06-09] MEDS: DULOXETINE HCL 60 MG CAP PO SCH (08:49)
[2016-06-09] MEDS: METHADONE HCL 10 MG TAB PO SCH (08:55)
[2016-06-09] MEDS: MAGNESIUM OXIDE 400 MG TAB PO SCH (08:56)
[2016-06-09] MEDS: GABAPENTIN 300 MG CAP PO SCH (08:57)
[2016-06-09] MEDS: PANTOprazole SOD 40 MG TAB PO SCH (08:58)
--- NOTE | 2016-06-09 11:42 | Discharge Instructions ---
Discharge Instructions Admission Reason for Admission: Gi Bleed Discharge Discharge Diagnosis / Problem: Lower GI bleed, Anemia Discharge Goals Goal(s): Decrease discomfort Activity Recommendations Activity Level: Assistance Required . Additional Information Patient informed of condition: Yes Advance Directives: Yes DNR: No Level of Care: Other (Acute care facility. [facility].) Communicable Disease: No Prognosis: Other (transferring to [facility] for GI bleed.) Concepcion Catheter: No Instructions / Follow-Up Instructions / Follow-Up Transferring to [facility] for higher care Current Hospital Diet Patient's current hospital diet: AHA Diet (Heart Healthy) Discharge Diet Recommended Diet: N/A (NPO Now) Pending Studies Studies pending at discharge: no Physician Orders On Transfer IV Therapy: IV NS@80ML/HR Vital Signs: EVERY 8HRS Additional Orders: PLEASE CHECK MEDICATION RECONCILIATION FOR ACCURATE MEDICATION LIST Medical Emergencies . Who to Call and When: Medical Emergencies: If at any time you feel your situation is an emergency, please call 911 immediately. . Non-Emergent Contact Non-Emergency issues call your: Primary Care Provider . . "Provider Documentation" section prepared by Oscar Taylor. Core Measure Problem Core Measures: None
[2016-06-09] MEDS ORDERED: SODIUM CHLORIDE 0.9% 1000ML 1,000 ML IV SCH (11:45)
[2016-06-09] MEDS ORDERED: FUROSEMIDE INJ 20 MG in SYRINGE 0 ML IV ONE (13:00)
--- NOTE | 2016-06-09 20:29 | Progress Note ---
Internal Med Progress Note Date of Service: Jun 09, 2016. Provider Documentation: SUBJECTIVE: patient today morning passed large bloody bowel movement while sitting on the commode had a brief presyncope episode currently alert and oriented x3 afebrile denies chest pain or sob denies nausea or abdominal pain vitals stable OBJECTIVE: Vital Signs-as noted below Exam: General-alert and oriented x3. ENT-normal hearing Neck-no neck masses Lungs-cta b/l no wheezing or crackles Heart-s1 and s2 heard regular rate and rhythm no murmurs Abdomen-soft bowel sounds present non tender no distension Extremities-no erythema Neuro-alert and awake and oriented x 3 non focal Lab data as noted below. ASSESSMENT & PLAN: RECTAL BLEED Question of small bloody vomitus on aspirin fro cva which is held recently placed on Lovenox and Coumadin after Left TKA INR 1.7 on presentation hb 6.9 on presentation received vitamin k s/p two units of prbc on day of admission hb 7.8 next day 06/06/16 and also had significant rectal bleed s/p two more units of prbc on 06/06/16 inr 1.6 on 06/06/16. Received one units of ffp and iv vitamin k GI on board and s/p egd and colonoscopy today 06/07/16- no active signs of bleeding but have significant descending and sigmoid diverticulosis hb 7.1 today in am 06/07/16 and s/p two more units of prbc and hb later in the day 9.4 received total of 6units of prbc. currently stable and tolerating diet no more epsiodes of bleeding hb 8.5 06/08/16 hb today 06/09/16 7.7 and patinet again passed large amount of bloody bowel movement again d/w GI and decided for transfer to [place] for intervention radiology patient and family agreed patient was accepted to [place] for transfer received one more unit of prbc prior to transfer HYPOTENSION 90s/70s on arrival; likely due to above; improving with IVF improved with fluids holding Hyzaar stable will monitor MINDY creatinine on presentation1.5 (bl 1.0-1.2); likely elevated due to dehydration holding Hyzaar received prbc and IVF cr 1.1 today HYPOKALEMIA replace. RECENT L TKA holding Coumadin in setting of GI bleed PT/OT H/O CVA s/p CVA 1996; has residual R sided paresthesias and chronic nerve pain holding ASA in setting of GI bleed CHRONIC PAIN SYNDROME since CVA 1996 On methadone and gabapentin Percocet PRN Holding Celebrex for now in setting of GI bleed HYPOTHYROIDISM On levothyroxine DEPRESSION stable on Aricept and Cymbalta DVT PROPHYLAXIS SCDs only in setting of GI bleed CODE STATUS FULL CODE as per h and p. Transferred to [place] Vital Signs: Date Time Temp Pulse Resp B/P Pulse Ox O2 Delivery O2 Flow Rate FiO2 06/09/16 15:29 36.9 87 19 95 Room Air 06/09/16 14:41 36.9 87 133/77 06/09/16 14:13 36.8 87 132/80 06/09/16 13:43 36.7 81 117/69 06/09/16 13:13 38.6 69 128/71 06/09/16 12:59 36.8 92 113/58 06/09/16 12:57 36.8 87 19 121/74 95 06/09/16 11:59 36.4 84 20 98 06/09/16 08:00 96 Room Air 06/09/16 07:42 36.8 71 18 145/78 96 Room Air 06/09/16 03:00 Room Air 06/09/16 00:00 36.7 69 20 145/76 98 Room Air 06/08/16 22:00 Room Air Lab Results: Results Past 24 Hours Test 06/09/16 06:37 Range/Units White Blood Count 6.02 4.8-10.8 K/uL Red Blood Count 2.69 4.7-6.1 M/uL Hemoglobin 7.7 14.0-18.0 g/dL Hematocrit 23.2 42-52 % Mean Corpuscular Volume 86.2 80-100 fL Mean Corpuscular Hemoglobin 28.6 25-34 pg Mean Corpuscular Hemoglobin Concent 33.2 32-36 g/dl Platelet Count 147 130-400 K/uL Mean Platelet Volume 10.3 7.4-10.4 fL Neutrophils (%) (Auto) 68.6 % Lymphocytes (%) (Auto) 18.3 % Monocytes (%) (Auto) 8.6 % Eosinophils (%) (Auto) 3.5 % Basophils (%) (Auto) 0.3 % Neutrophils # (Auto) 4.13 1.4-6.5 K/uL Lymphocytes # (Auto) 1.10 1.2-3.4 K/uL Monocytes # (Auto) 0.52 0.11-0.59 K/uL Eosinophils # (Auto) 0.21 0-0.5 K/uL Basophils # (Auto) 0.02 0-0.2 K/uL RDW Standard Deviation 50.7 36.4-46.3 fL RDW Coefficient of Variation 16.4 11.5-14.5 % Immature Granulocyte % (Auto) 0.7 % Immature Granulocyte # (Auto) 0.04 0.00-0.02 K/uL Red Blood Cell Morphology Unremarkable Prothrombin Time 10.6 9.0-12.0 SECONDS Prothromb Time International Ratio 1.0 0.9-1.1 Sodium Level 145 136-145 mmol/L Potassium Level 3.6 3.5-5.1 mmol/L Chloride Level 109 98-107 mmol/L Carbon Dioxide Level 31 21-32 mmol/L Anion Gap 5.0 3-11 mmol/L Blood Urea Nitrogen 14 7-18 mg/dl Creatinine 1.10 0.60-1.40 mg/dl Est Creatinine Clear Calc Drug Dose 81.1 ml/min Estimated GFR () 75.7 Estimated GFR (Non- 65.3 BUN/Creatinine Ratio 12.4 10-20 Random Glucose 94 70-99 mg/dl Calcium Level 7.9 8.5-10.1 mg/dl Magnesium Level 2.0 1.8-2.4 mg/dl
--- NOTE | 2016-06-09 20:31 | Discharge Summary ---
Discharge Summary Admission Date: Jun 05, 2016 at 14:21 Discharge Date: Jun 09, 2016 Discharge Disposition: Acute care facility Principal Diagnosis: GI BLEED ANEMIA HYPOTENSION Secondary Diagnoses/Problems: 1) Chronic pain syndrome Status: Chronic (2) COPD (chronic obstructive pulmonary disease) Status: Chronic (3) CVA (cerebral infarction) Status: Chronic (4) Hypothyroidism Status: Chronic (5) FELICITA (iron deficiency anemia) Status: Chronic (6) Monoclonal gammopathy Status: Chronic (7) PMR (polymyalgia rheumatica) Status: Chronic (8) Right-sided nerve pain Status: Chronic (9) Right-sided numbness Status: Chronic (10) Sleep apnea Status: Chronic Procedures: CHEST.ABDOMINAL XRAY: 1. No acute process within the chest. 2. Borderline dilated gas-filled loops of large and small bowel seen throughout the abdomen. This favors a mild ileus. No evidence for bowel obstruction. Consultations: GI Admission Information HPI (per Admitting provider): This is a 75 y/o male with PMHx of CVA with residual R sided paresthesias/pain, Hypothyroidism, HTN and other problems as outlined below who presents to the ED from [facility] c/o bright red blood per rectum that began this morning. Pt was recently admitted to [facility] from 05/16-05/23 for aspiration pneumonia. He has been feeling well since discharge until this morning when he had a loose BM with "large" amounts of bright red blood. His sxs were assoc with nausea and one episode of vomiting. Per nursing staff at [facility] there was no blood in the emesis. Pt has a history of rectal bleed due to hemorrhoids. EGD and sigmoidoscopy from 2013 were normal. Pt has been doing inpatient rehab at [facility] s/p L TKA 05/09/2016 at [facility]. Post-surgery he was started on Coumadin for DVT prophylaxis. In addition he takes a baby ASA daily. Pt denies fever/chills, diaphoresis, chest pain, palpitations, SOB, abd pain, bladder issues, LE edema, calf pain, lightheadedness/dizziness. In the ED, pt is hypotensive on arrival. HgB 9.1. K+ 3.2. creat 1.5. INR 1.7. Pt has not had any more episodes of rectal bleeding since arrival to the ED. He will be admitted for further evaluation and treatment. Physical Exam (per Admitting): General Appearance: WD/WN, no apparent distress, + pertinent finding (Pt is laying in bed with at bedside ) Head: normocephalic, atraumatic Eyes: normal inspection ENT: hearing grossly normal Neck: supple Respiratory/Chest: chest non-tender, lungs clear, normal breath sounds, no respiratory distress Cardiovascular: regular rate, rhythm, no edema, no murmur Abdomen/GI: normal bowel sounds, non tender, soft Back: normal inspection Extremities/Musculoskelatal: normal inspection, no calf tenderness, no pedal edema Neurologic/Psych: alert, normal mood/affect, oriented x 3 Skin: normal color, warm/dry Physical Exam (per Admitting): General Appearance: WD/WN, no apparent distress, + pertinent finding (Pt is laying in bed with at bedside ) Head: normocephalic, atraumatic Eyes: normal inspection ENT: hearing grossly normal Neck: supple Respiratory/Chest: chest non-tender, lungs clear, normal breath sounds, no respiratory distress Cardiovascular: regular rate, rhythm, no edema, no murmur Abdomen/GI: normal bowel sounds, non tender, soft Back: normal inspection Extremities/Musculoskelatal: normal inspection, no calf tenderness, no pedal edema Neurologic/Psych: alert, normal mood/affect, oriented x 3 Skin: normal color, warm/dry Hospital Course RECTAL BLEED Question of small bloody vomitus on aspirin fro cva which is held recently placed on Lovenox and Coumadin after Left TKA INR 1.7 on presentation hb 6.9 on presentation received vitamin k s/p two units of prbc on day of admission hb 7.8 next day 06/06/16 and also had significant rectal bleed s/p two more units of prbc on 06/06/16 inr 1.6 on 06/06/16. Received one units of ffp and iv vitamin k GI on board and s/p egd and colonoscopy today 06/07/16- no active signs of bleeding but have significant descending and sigmoid diverticulosis hb 7.1 today in am 06/07/16 and s/p two more units of prbc and hb later in the day 9.4 received total of 6units of prbc. currently stable and tolerating diet no more epsiodes of bleeding hb 8.5 06/08/16 hb today 06/09/16 7.7 and luisito again passed large amount of bloody bowel movement again d/w GI and decided for transfer to [place] for intervention radiology patient and family agreed patient was accepted to [place] for transfer received one more unit of prbc prior to transfer HYPOTENSION 90s/70s on arrival; likely due to above; improving with IVF improved with fluids holding Hyzaar stable will monitor MINDY creatinine on presentation1.5 (bl 1.0-1.2); likely elevated due to dehydration holding Hyzaar received prbc and IVF cr 1.1 today HYPOKALEMIA replace. RECENT L TKA holding Coumadin in setting of GI bleed PT/OT H/O CVA s/p CVA 1996; has residual R sided paresthesias and chronic nerve pain holding ASA in setting of GI bleed CHRONIC PAIN SYNDROME since CVA 1996 On methadone and gabapentin Percocet PRN Holding Celebrex for now in setting of GI bleed HYPOTHYROIDISM On levothyroxine DEPRESSION stable on Aricept and Cymbalta DVT PROPHYLAXIS SCDs only in setting of GI bleed CODE STATUS FULL CODE as per h and p. Transferred to [place] Total time spent on discharge = 45MINUTES This includes examination of the patient, discharge planning, medication reconciliation, and communication with other providers. Discharge Instructions Discharge Instructions Admission Reason for Admission: Gi Bleed Discharge Discharge Diagnosis / Problem: Lower GI bleed, Anemia Discharge Goals Goal(s): Decrease discomfort Activity Recommendations Activity Level: Assistance Required . Additional Information Patient informed of condition: Yes Advance Directives: Yes DNR: No Level of Care: Other (Acute care facility. [facility].) Communicable Disease: No Prognosis: Other (transferring to [place] for GI bleed.) Concepcion Catheter: No Instructions / Follow-Up Instructions / Follow-Up Transferring to [facility] for higher care Current Hospital Diet Patient's current hospital diet: AHA Diet (Heart Healthy) Discharge Diet Recommended Diet: N/A (NPO Now) Pending Studies Studies pending at discharge: no Physician Orders On Transfer IV Therapy: IV NS@80ML/HR Vital Signs: EVERY 8HRS Additional Orders: PLEASE CHECK MEDICATION RECONCILIATION FOR ACCURATE MEDICATION LIST Medical Emergencies . Who to Call and When: Medical Emergencies: If at any time you feel your situation is an emergency, please call 911 immediately. . Non-Emergent Contact Non-Emergency issues call your: Primary Care Provider . . "Provider Documentation" section prepared by Oscar Taylor. Core Measure Problem Core Measures: None
[2016-10-11] MEDS ORDERED: CLB100 PO (08:06)
[2016-10-11] MEDS ORDERED: LEVO25TA5 PO (08:06)
[2016-10-11] MEDS ORDERED: MOML PO (08:06)
[2016-10-11] MEDS ORDERED: DONE1TAB11 PO (08:06)
[2016-10-11] MEDS ORDERED: MELA1TAB5 PO (08:06)
[2016-10-11] MEDS ORDERED: MTH10 PO (08:06)
[2016-10-11] MEDS ORDERED: HYZ/10015 PO (08:06)
[2017-01-08] MEDS ORDERED: LACTCAP3 PO (07:48)
[2017-01-08] MEDS ORDERED: MELO15TA4 PO (07:48)
[2017-01-08] MEDS ORDERED: ACET-1311 PO (07:48)
[2017-01-08] MEDS ORDERED: SODIENE PR (07:48)
[2017-01-08] MEDS ORDERED: TRAV0.00 OP (07:48)
[2017-01-08] MEDS ORDERED: BISA10SU3 PR (07:48)
[2017-01-08] MEDS ORDERED: IPRASOL4 INH (07:48)
[2017-01-08] MEDS ORDERED: LEVO25TA5 PO (07:48)
[2017-01-08] MEDS ORDERED: METH10TA2 PO (07:48)
[2017-01-08] MEDS ORDERED: MULT-506 PO (07:48)
[2017-01-08] MEDS ORDERED: AMLO-114 PO (07:48)
[2017-01-08] MEDS ORDERED: TRAZ100T29 PO (07:48)
[2017-01-08] MEDS ORDERED: CYAN10005 PO (07:48)
[2017-01-08] MEDS ORDERED: BIMA0.01 OP (07:48)
[2017-01-08] MEDS ORDERED: GABA600T PO (07:48)
[2017-01-28] MEDS ORDERED: BROM0.0911 OPR (14:38)
[2017-01-28] MEDS ORDERED: BUME1TAB42 PO (14:40)
[2017-01-28] MEDS ORDERED: POTA10CA28 PO (14:45)
[2017-01-28] MEDS ORDERED: BRIN3SUS OPR (14:49)
[2017-01-28] MEDS ORDERED: CPROT OPR (14:51)
[2017-01-28] MEDS ORDERED: PRED1SUS17 OP (14:51)
[2017-01-31] MEDS ORDERED: LVQ750 PO ×2 (10:45→10:58)
== END 2016-06-09 16:30 | disposition short-term general hospital (02) | DRG 378 ==
LOC: ENRESERVDT → ENRESERVTM → EDBD 09:08 → C.EDA 09:14 → C.2T 14:21 → UNDOADMIN 15:55 → C.MS4W 06-08 19:06 → C.2T 06-09 13:17
PROVIDERS: ADMIT Internal Medicine; ATTEND Internal Medicine
PROC: 0DJD8ZZ Inspection of Lower Intestinal Tract, Via Natural or Artificial Opening Endoscopic (ICD-10-PCS; principal; 2016-06-07 10:00)
PROC: 0DJ08ZZ Inspection of Upper Intestinal Tract, Via Natural or Artificial Opening Endoscopic (ICD-10-PCS; 2016-06-07 10:00)
DX: K57.31 Diverticulosis of large intestine without perforation or abscess with bleeding (principal); N17.9 Acute kidney failure, unspecified; I69.398 Other sequelae of cerebral infarction; E03.9 Hypothyroidism, unspecified; J44.9 Chronic obstructive pulmonary disease, unspecified; F32.9 Major depressive disorder, single episode, unspecified; R20.2 Paresthesia of skin; I95.9 Hypotension, unspecified; E87.6 Hypokalemia; G89.4 Chronic pain syndrome; Z79.01 Long term (current) use of anticoagulants; Z79.82 Long term (current) use of aspirin; Z79.899 Other long term (current) drug therapy; Z96.652 Presence of left artificial knee joint

== ENCOUNTER → 2016-06-15 | Outpatient (CLI) | payer BC, OTHER ==
[~2016-06-15] MED LIST changes: +AMLO-114 PO; -AMOX1TAB43 PO; +BIMA0.01 OP; +BISA10SU3 PR; -BISA10SU5 RE; +BRIN3SUS OPR; +BROM0.0911 OPR; +BUME1TAB42 PO; +CEPH500C2 PO; -CHOL200010 PO; +CHOL20005 PO; +CLB/200 PO; +CLB100 PO; +CPRDOTS OT; +CPROT OPR; +CYAN10005 PO; -CYM60 PO; +DOCU-94 PO; -DOCU100C31 PO; +DONE1TAB11 PO; +DSY100 PO; +DULO60CA44 PO; +FINA5TAB4 PO; +GABA600T PO; +IPRASOL4 INH; +LCTX PO; +LEVO750T23 PO; +LOSA1TAB38 PO; +LVQ750 PO; +MELA1TAB5 PO; +MELO15TA4 PO; +MOML PO; +MTH10 PO; +MULT-506 PO; +NF656 TD; +NYST1POW7 TOP; +OMEG10007 PO; +OMEP20CA9 PO; -ONDA4TAB46 PO; -PANT40TA PO; +POTA10CA28 PO; +PRED10TA PO; +PRED1SUS17 OP; -SENN-61 PO; +SODIENE PR; -SOLI10TA2 PO; +TAMS0.4C38 PO; +TRAV0.00 OP; +TRAZ100T29 PO; -WARF2TAB PO; -lidocaine patch EXT
[2016-06-15 09:29] LABS: BASO % 0.2 %; BASO ABS # 0.01 K/uL (0-0.2); EOS % 6.4 %; HEMATOCRIT 23.2 % (42-52); IG% 0.2 %; LYMPH % 26.5 %; LYMPH ABS # 1.16 K/uL (1.2-3.4); MEAN CELL VOLUME 86.2 fL (80-100); MEAN CORPUSCULAR HEMOGLOBIN 28.3 pg (25-34); MEAN CORPUSCULAR HGB CONC 32.8 g/dl (32-36); MEAN PLATELET VOLUME 9.6 fL (7.4-10.4); MONO % 10.5 %; NEUT % 56.2 %; PLATELET COUNT 192 K/uL (130-400); RED BLOOD COUNT 2.69 M/uL (4.7-6.1); WHITE BLOOD COUNT 4.37 K/uL (4.8-10.8)
[2016-06-15 09:32] LABS: BLOOD UREA NITROGEN 7 mg/dl (7-18); BUN/CREATININE RATIO 7.3 (10-20); CALCIUM 7.9 mg/dl (8.5-10.1); CARBON DIOXIDE 30 mmol/L (21-32); CHLORIDE 110 mmol/L (98-107); CREATININE 0.93 mg/dl (0.60-1.40); GLUCOSE 70 mg/dl (70-99); MAGNESIUM 1.9 mg/dl (1.8-2.4); POTASSIUM 3.5 mmol/L (3.5-5.1); SODIUM 146 mmol/L (136-145)
[2016-06-15 09:55] LABS: COMPLETE YES
== END ==
LOC: C.LABUPNIT 09:04
PROVIDERS: ATTEND Family Medicine
DX: I10 Essential (primary) hypertension (principal); J44.9 Chronic obstructive pulmonary disease, unspecified

== ENCOUNTER → 2016-06-20 | Outpatient (CLI) | payer BC, OTHER ==
[2016-06-20 09:07] LABS: BASO % 0.5 %; BASO ABS # 0.03 K/uL (0-0.2); COMPLETE YES; EOS % 3.6 %; HEMATOCRIT 28.9 % (42-52); IG% 0.4 %; LYMPH % 27.1 %; LYMPH ABS # 1.51 K/uL (1.2-3.4); MEAN CELL VOLUME 84.8 fL (80-100); MEAN CORPUSCULAR HEMOGLOBIN 27.3 pg (25-34); MEAN CORPUSCULAR HGB CONC 32.2 g/dl (32-36); MEAN PLATELET VOLUME 9.8 fL (7.4-10.4); MONO % 11.6 %; NEUT % 56.8 %; PLATELET COUNT 277 K/uL (130-400); RED BLOOD COUNT 3.41 M/uL (4.7-6.1); WHITE BLOOD COUNT 5.58 K/uL (4.8-10.8)
== END ==
LOC: C.LABUPNIT 08:52
PROVIDERS: ATTEND Family Medicine
DX: J44.9 Chronic obstructive pulmonary disease, unspecified (principal)

== ENCOUNTER → 2016-06-21 | Outpatient (CLI) | payer BC, OTHER ==
[2016-06-21 09:39] LABS: BASO % 0.6 %; BASO ABS # 0.03 K/uL (0-0.2); EOS % 3.2 %; HEMATOCRIT 27.1 % (42-52); IG% 0.4 %; LYMPH % 26.1 %; MEAN CORPUSCULAR HEMOGLOBIN 27.3 pg (25-34); MEAN CORPUSCULAR HGB CONC 31.7 g/dl (32-36); MEAN PLATELET VOLUME 9.9 fL (7.4-10.4); MONO % 10.1 %; NEUT % 59.6 %; PLATELET COUNT 262 K/uL (130-400); RED BLOOD COUNT 3.15 M/uL (4.7-6.1); WHITE BLOOD COUNT 5.36 K/uL (4.8-10.8)
[2016-06-21 09:55] LABS: BLOOD UREA NITROGEN 13 mg/dl (7-18); BUN/CREATININE RATIO 11.4 (10-20); CALCIUM 8.2 mg/dl (8.5-10.1); CARBON DIOXIDE 33 mmol/L (21-32); CHLORIDE 104 mmol/L (98-107); GLUCOSE 86 mg/dl (70-99); POTASSIUM 3.2 mmol/L (3.5-5.1); SODIUM 144 mmol/L (136-145)
[2016-06-21 09:59] LABS: PROSTATE SPECIFIC ANTIGEN 0.221 ng/ml (0.000-4.000)
[2016-06-21 10:14] LABS: COMPLETE YES
== END ==
LOC: C.LABUPNIT 09:17
PROVIDERS: ATTEND Family Medicine
DX: K92.2 Gastrointestinal hemorrhage, unspecified (principal); R32 Unspecified urinary incontinence; N39.0 Urinary tract infection, site not specified

== ENCOUNTER → 2016-06-21 | Outpatient (CLI) | payer BC, OTHER ==
[2016-06-21 09:54] LABS: URINE APPEARANCE CLEAR (CLEAR); URINE BILIRUBIN NEG (NEG); URINE COLOR DK YELLOW; URINE NITRITE NEG (NEG); URINE SPECIFIC GRAVITY 1.016 (1.000-1.030); UROBILINOGEN POS (NEG); ZZUR CULT IF INDIC CLEAN CATCH NO
[2016-06-21 09:55] LABS: MANUAL MICROSCOPIC REQUIRED? NO; REVIEW REQ? NO
== END ==
LOC: C.LABUPNIT 09:11
PROVIDERS: ATTEND Family Medicine
DX: N39.0 Urinary tract infection, site not specified (principal)

== ENCOUNTER → 2016-06-25 | Outpatient (CLI) | payer BC, OTHER ==
[~2016-06-25] MED LIST changes: +BROM1SOL8 OPR; +LEVO1TAB33 PO
--- NOTE | 2016-06-26 12:52 | DIAGNOSTIC IMAGING REPORT ---
RIGHT SHOULDER MIN 2 VIEWS CLINICAL HISTORY: Right shoulder pain. No known injury. COMPARISON: Right shoulder radiographs April 13, 2016. FINDINGS: Elevation of the right humeral head suggests chronic rotator cuff tear. There is no acute fracture or dislocation right shoulder. There is moderate to severe arthrosis of the acromioclavicular joint as well as mild to moderate arthrosis of the glenohumeral joint. IMPRESSION: 1. No acute fracture or dislocation of the right shoulder. 2. Elevation of the right humeral head which suggests a chronic rotator cuff tear. 3. Moderate arthritis of the right shoulder Electronically signed by: Mazin Sidhu M.D. 06/26/2016 12:51 PM Dictated Date/Time: 06/26/2016 12:49 PM
== END | disposition home or self-care (01) ==
LOC: C.RDSM 10:42
PROVIDERS: ATTEND Physician Assistant
DX: M25.511 Pain in right shoulder (principal)

== ENCOUNTER → 2016-06-25 | Outpatient (CLI) | payer BC, OTHER | LOC: C.RDSM 07:00 | PROVIDERS: ATTEND Physical Medicine & Rehabilitation Sports Medicine | DX: M25.562 Pain in left knee (principal); M25.511 Pain in right shoulder ==

== ENCOUNTER → 2016-06-27 | Outpatient (CLI) | payer BC, OTHER ==
[~2016-06-27] MED LIST changes: -BROM1SOL8 OPR; -LEVO1TAB33 PO
[2016-06-27 09:34] LABS: HEMATOCRIT 29.1 % (42-52); MEAN CELL VOLUME 83.4 fL (80-100); MEAN CORPUSCULAR HEMOGLOBIN 26.4 pg (25-34); MEAN CORPUSCULAR HGB CONC 31.6 g/dl (32-36); MEAN PLATELET VOLUME 10.3 fL (7.4-10.4); PLATELET COUNT 260 K/uL (130-400); RED BLOOD COUNT 3.49 M/uL (4.7-6.1); WHITE BLOOD COUNT 5.91 K/uL (4.8-10.8)
[2016-06-27 09:35] LABS: BLOOD UREA NITROGEN 17 mg/dl (7-18); BUN/CREATININE RATIO 16.6 (10-20); CALCIUM 8.5 mg/dl (8.5-10.1); CARBON DIOXIDE 33 mmol/L (21-32); CHLORIDE 103 mmol/L (98-107); GLUCOSE 71 mg/dl (70-99); POTASSIUM 3.2 mmol/L (3.5-5.1); SODIUM 143 mmol/L (136-145)
[2016-06-27 09:36] LABS: C-REACTIVE PROTEIN 1.71 mg/dl (0-0.29)
== END ==
LOC: C.LABUPNIT 09:05
PROVIDERS: ATTEND Family Medicine
DX: I63.50 Cerebral infarction due to unspecified occlusion or stenosis of unspecified cerebral artery (principal)

== ENCOUNTER → 2016-07-01 | Outpatient (CLI) | payer BC, OTHER ==
[2016-07-01 02:41] LABS: MANUAL MICROSCOPIC REQUIRED? NO; REVIEW REQ? NO; URINE APPEARANCE CLEAR (CLEAR); URINE BILIRUBIN NEG (NEG); URINE COLOR YELLOW; URINE NITRITE NEG (NEG); URINE SPECIFIC GRAVITY 1.019 (1.000-1.030); UROBILINOGEN NEG (NEG)
== END ==
LOC: C.LABUPNIT 12:06
PROVIDERS: ATTEND Family Medicine
DX: N32.81 Overactive bladder (principal)

== ENCOUNTER → 2016-07-02 | Outpatient (CLI) | payer BC, OTHER ==
[2016-07-02 09:34] LABS: BASO % 0.3 %; BASO ABS # 0.02 K/uL (0-0.2); COMPLETE YES; EOS % 6.2 %; HEMATOCRIT 28.6 % (42-52); IG% 0.5 %; LYMPH % 21.1 %; LYMPH ABS # 1.23 K/uL (1.2-3.4); MEAN CELL VOLUME 82.2 fL (80-100); MEAN CORPUSCULAR HEMOGLOBIN 26.1 pg (25-34); MEAN CORPUSCULAR HGB CONC 31.8 g/dl (32-36); MEAN PLATELET VOLUME 10.7 fL (7.4-10.4); MONO % 15.1 %; NEUT % 56.8 %; PLATELET COUNT 220 K/uL (130-400); RED BLOOD COUNT 3.48 M/uL (4.7-6.1); WHITE BLOOD COUNT 5.84 K/uL (4.8-10.8)
[2016-07-02 11:24] LABS: ALB/GLOB RATIO 0.7 (0.9-2); ALKALINE PHOSPHATASE 73 U/L (45-117); ALT/SGPT 17 U/L (12-78); AST/SGOT 10 U/L (15-37); BLOOD UREA NITROGEN 18 mg/dl (7-18); BUN/CREATININE RATIO 18.3 (10-20); CALCIUM 8.5 mg/dl (8.5-10.1); CARBON DIOXIDE 33 mmol/L (21-32); CHLORIDE 102 mmol/L (98-107); CREATININE 0.96 mg/dl (0.60-1.40); GLUCOSE 81 mg/dl (70-99); POTASSIUM 3.5 mmol/L (3.5-5.1); SODIUM 142 mmol/L (136-145)
--- NOTE | 2016-07-04 06:19 | CODING QUERY NO DIAGNOSIS ---
TREATMENT RENDERED WITHOUT A DIAGNOSIS To promote full compliance with coding requirements relating to patient care, physician participation is requested in all cases of customer account executive uncertainty. Please assist us with providing a diagnosis/symptom for the test(s) below: A diagnosis/symptom was not documented on your Order. A valid diagnosis/symptom is required to bill all insurances. Please remember that we are unable to code a diagnosis of rule out, probable, possible, questionable, or suspected. Tests that require a diagnosis: DOS 07/02 * Vitamin B12 DIAGNOSIS: * CBC DIAGNOSIS: * Folic Acid DIAGNOSIS: * TSH DIAGNOSIS: Provider Signature: Date: Thank you Angela Zaragoza Health Information Management Once completed, please kindly fax back to [phone] For questions please call [phone]
== END ==
LOC: C.LABUPNIT 09:05
PROVIDERS: ATTEND Family Medicine
DX: E53.8 Deficiency of other specified B group vitamins (principal); D50.9 Iron deficiency anemia, unspecified; E03.9 Hypothyroidism, unspecified

== ENCOUNTER 2016-07-03 13:14 | Inpatient (IN) | payer BC, OTHER ==
[~2016-07-03] VITALS: Ht 185.4 cm; Wt 115.3 kg
[~2016-07-03 13:14] MED LIST changes: -ACET-1311 PO; -AMLO-114 PO; -ASPI81TA28 PO; -BIMA0.01 OP; -BISA10SU3 PR; -BRIN3SUS OPR; -BROM0.0911 OPR; -BUME1TAB42 PO; -CEPH500C2 PO; -CLB/200 PO; -CLB100 PO; -CPRDOTS OT; -CPROT OPR; -CYAN10005 PO; -DOCU-94 PO; -DONE1TAB11 PO; -DSY100 PO; -FINA5TAB4 PO; -GABA600T PO; -HYZ/10015 PO; -IPRASOL4 INH; -LCTX PO; -LEVO750T23 PO; -LOSA1TAB38 PO; -LVQ750 PO; -MELA1TAB5 PO; -MELO15TA4 PO; -MOML PO; -MTH10 PO; -MULT-506 PO; -OMEG10007 PO; -OMEP20CA9 PO; -POTA10CA28 PO; -PRED10TA PO; -PRED1SUS17 OP; -SODIENE PR; -TAMS0.4C38 PO; -TRAV0.00 OP; -TRAZ100T29 PO
[2016-07-03] MEDS ORDERED: SODIUM CHLORIDE 0.9% 1000ML 1,000 ML IV SCH (13:41)
[2016-07-03 14:11] LABS: BASO % 0.1 %; BASO ABS # 0.01 K/uL (0-0.2); COMPLETE YES; EOS % 2.3 %; HEMATOCRIT 33.5 % (42-52); IG% 0.3 %; LYMPH % 5.3 %; MEAN CELL VOLUME 82.7 fL (80-100); MEAN CORPUSCULAR HEMOGLOBIN 26.4 pg (25-34); MEAN CORPUSCULAR HGB CONC 31.9 g/dl (32-36); MEAN PLATELET VOLUME 10.9 fL (7.4-10.4); MONO % 3.9 %; NEUT % 88.1 %; PLATELET COUNT 244 K/uL (130-400); RED BLOOD COUNT 4.05 M/uL (4.7-6.1); WHITE BLOOD COUNT 13.23 K/uL (4.8-10.8)
--- NOTE | 2016-07-03 14:21 | DIAGNOSTIC IMAGING REPORT ---
CT SCAN OF THE BRAIN WITHOUT IV CONTRAST CLINICAL HISTORY: Change in mental status. COMPARISON STUDY: CT of the brain dated 05/16/2016. TECHNIQUE: Unenhanced axial CT scan of the brain is performed from the vertex to the skull base. CT DOSE: 953.42 mGycm FINDINGS: Brain parenchyma: Left parietal and septal malacia is unchanged and consistent with a remote infarct. There are age-related involutional changes noting mild subcortical and periventricular microangiopathic change. Wallerian degeneration is noted in the left aspect of the ramirez. There is no hemorrhage, mass effect, or evidence of acute territorial ischemia by CT criteria. Henry-white matter is preserved. No extra-axial fluid collection is seen. Ventricles, sulci, cisterns: Prominent secondary to involutional change. Intracranial vasculature: There is atherosclerotic calcification of the cavernous carotid arteries. Calvarium: Unremarkable. Sinuses and mastoids: Trace mucosal thickening is seen within the maxillary antra. Mild mucosal thickening is also identified in the ethmoid sinuses. Findings suggest previous paranasal sinus surgery. There are trace mastoid effusions. Orbits: The bony orbits are grossly intact. IMPRESSION: 1. There is no hemorrhage, mass effect, or evidence of acute territorial ischemia by CT criteria. 2. Senescent changes and remote infarct as above. Electronically signed by: Raoul Covington M.D. 07/03/2016 2:19 PM Dictated Date/Time: 07/03/2016 2:16 PM
[2016-07-03 14:26] LABS: PARTIAL THROMBOPLASTIN RATIO 0.8; PROTHROMBIN TIME (PATIENT) 10.7 SECONDS (9.0-12.0)
[2016-07-03 14:32] LABS: BLOOD UREA NITROGEN 18 mg/dl (7-18); BUN/CREATININE RATIO 16.4 (10-20); CALCIUM 9.3 mg/dl (8.5-10.1); CARBON DIOXIDE 33 mmol/L (21-32); CHLORIDE 100 mmol/L (98-107); GLUCOSE 155 mg/dl (70-99); POTASSIUM 3.4 mmol/L (3.5-5.1); SODIUM 141 mmol/L (136-145)
[2016-07-03] MEDS ORDERED: ASPI81TA28 PO (14:55)
[2016-07-03] MEDS ORDERED: CLB/200 PO (14:56)
[2016-07-03 15:01] LABS: URINE APPEARANCE CLEAR (CLEAR); URINE BILIRUBIN NEG (NEG); URINE COLOR YELLOW; URINE NITRITE NEG (NEG); URINE SPECIFIC GRAVITY 1.014 (1.000-1.030); UROBILINOGEN POS (NEG)
[2016-07-03] MEDS ORDERED: SODIUM CHLORIDE 0.9% 1000ML 1,000 ML IV STA ×2 (15:01)
[2016-07-03] MEDS ORDERED: PIPERACILLIN/TAZOBACTAM 4.5 GM/100ML D5W IV STA (15:01)
[2016-07-03] MEDS ORDERED: VANCOMYCIN INJ 2,000 MG in SODIUM CHLORIDE 0.9% 500ML 500 ML IV STA (15:01)
[2016-07-03 15:08] LABS: MANUAL MICROSCOPIC REQUIRED? NO; REVIEW REQ? NO
--- NOTE | 2016-07-03 15:22 | DIAGNOSTIC IMAGING REPORT ---
CHEST ONE VIEW PORTABLE CLINICAL HISTORY: altered. h/o aspiration dyspnea COMPARISON STUDY: 06/05/2016 FINDINGS: Poorly defined bilateral parenchymal infiltrative change. Mid and upper lungs are considered clear. Diaphragms smooth. IMPRESSION: Bibasilar parenchymal infiltrates. Electronically signed by: Ar Sarabia M.D. 07/03/2016 3:21 PM Dictated Date/Time: 07/03/2016 3:21 PM
[2016-07-03] MEDS ORDERED: NITROGLYCERIN 0.4 MG SL PER TAB CHARGE SL PRN (17:00)
[2016-07-03] MEDS ORDERED: ONDANSETRON INJ 2 MG/ML 2 ML VIAL IV PRN (17:00)
[2016-07-03] MEDS ORDERED: ACETAMINOPHEN 325 MG TAB PO PRN (17:00)
[2016-07-03] MEDS ORDERED: CONSULT PHARMACY STA (17:03)
[2016-07-03] MEDS ORDERED: OMEP20CA9 PO (17:27)
[2016-07-03] MEDS ORDERED: DSY100 PO (17:27)
[2016-07-03] MEDS ORDERED: FINA5TAB4 PO (17:27)
[2016-07-03] MEDS ORDERED: CLB100 PO (17:27)
[2016-07-03] MEDS ORDERED: OMEG10007 PO (17:27)
[2016-07-03] MEDS ORDERED: LOSA1TAB38 PO (17:27)
[2016-07-03] MEDS ORDERED: TAMS0.4C38 PO (17:27)
[2016-07-03] MEDS ORDERED: PRED10TA PO (17:27)
[2016-07-03] MEDS ORDERED: DOCU-94 PO (17:27)
[2016-07-03] MEDS ORDERED: IPRATROPIUM BROMIDE/ALBUTEROL respimat INH INH PRN (17:45)
[2016-07-03] MEDS ORDERED: PIPERACILL/TAZOBAC CONSULT ACTIVE PRN (18:00)
[2016-07-03] MEDS ORDERED: VANCOMYCIN CONSULT ACTIVE PRN (18:00)
--- NOTE | 2016-07-03 18:28 | History and Physical ---
History & Physical Date & Time of Service: Jul 03, 2016 at 17:02 Chief Complaint: Altered Mental Status Primary Care Physician: Chi Meyers M.D.(CYNTHIA) History of Present Illness Source: spouse This is a 75 y/o male with PMHx of CVA with residual R sided paresthesias/pain, Hypothyroidism, HTN and other problems as outlined below who presents to the ED with altered mental status that began this afternoon. History is obtained from at bedside as patient is unable to give clear history due to AMS. reports that she went to visit patient for lunch today around 12:15. Upon her arrival, pt did not appear to recognize her. He was "staring into space" with a dazed look on his face and was unable to respond to questions. Per nursing staff at [facility], patient was at his baseline this morning, went to PT and did well. also adds that patient had a similar episode 2 weeks ago where he had difficulty speaking and holding objects noting that everything fell to the floor. Per , patient has had similar sxs in the past due to infection. After a few days, the sxs resolved and patient was doing very well until this morning. denies any recent falls. Pt has a history of major stroke in 1996 that left his with loss of mobility of his right side. Pt also has a recent history of admission to [facility] from 06/05-06/09 with rectal bleed. Patient was transfused and ultimately transferred to [place] for further evaluation. recalls that patient received another unit of blood in [place] and had a colonoscopy that revealed upper and lower diverticulitis. Patient was discharged to [facility] and has not had any more episodes of bleeding. Unable to obtain ROS due to AMS. In the ED, pt is tachy and hypoxic on arrival. Pt is afebrile with leukocytosis >13k. POC lactic acid >2.05. HgB 10.7. UA negative. CXR + bilateral infiltrates. CT head is negative. Pt will be admitted for further evaluation and treatment. Past Medical/Surgical History Medical Problems: (1) Chronic pain syndrome Status: Chronic (2) COPD (chronic obstructive pulmonary disease) Status: Chronic (3) CVA (cerebral infarction) Status: Chronic (4) GI bleed Status: Resolved (5) Hypothyroidism Status: Chronic (6) FELICITA (iron deficiency anemia) Status: Chronic (7) Monoclonal gammopathy Status: Chronic (8) PMR (polymyalgia rheumatica) Status: Chronic (9) Right-sided nerve pain Status: Chronic (10) Right-sided numbness Status: Chronic (11) Sleep apnea Status: Chronic Surgical Problems: (1) H/O esophagogastroduodenoscopy Status: Chronic (2) H/O hernia repair Status: Chronic (3) S/P cholecystectomy Status: Chronic (4) S/P small bowel resection Status: Chronic Family History Diabetes mellitus Gallbladder disease Heart disease Hypertension Kidney disease Kidney stones Lung disease Stroke Social History Smoking Status: Former Smoker (50 pack year history; quit 9 years ago ) Alcohol Use: none Drug Use: none Marital Status: Housing status: other ([facility]) Occupational Status: retired Immunizations History of Influenza Vaccine: No History of Tetanus Vaccine?: Yes History of Pneumococcal: No History of Hepatitis B Vaccine: No Multi-Drug Resistant Organisms History of MDRO: No Allergies Coded Allergies: Iodinated Diagnostic Agents (Verified Allergy, Unknown, HIVES, 07/03/16) Home Medications Scheduled Aspirin (Aspirin Ec), 81 MG PO DAILY Bimatoprost (Lumigan), 1 DROPS OPB HS Celecoxib (Celebrex), 50 MG PO BID Cholecalciferol (Vitamin D3), 2,000 UNITS PO DAILY Cyanocobalamin (Vitamin B-12 1000 Mcg), 1,000 MCG PO QAM Docusate Sodium (Colace), 1 CAP PO BID Donepezil HCl (Donepezil HCl), 5 MG PO HS Duloxetine Hcl (Cymbalta), 60 MG PO DAILY Finasteride (Proscar), 5 MG PO DAILY Fish Oil ([place]-3), 1 CAP PO DAILY Gabapentin (Neurontin), 600 MG PO TID Lactobacillus (Acidophilus), 1 CAP PO BID Levothyroxine Sodium (Levothyroxine Sodium), 25 MCG PO 3XWK Levothyroxine Sodium (Levothyroxine Sodium), 50 MCG PO 4XWK Losartan Potassium (Cozaar), 100 MG PO DAILY Methadone Hcl (Dolophine), 40 MG PO QAM Methadone Hcl (Dolophine), 30 MG PO QPM/HS Omeprazole (Prilosec), 20 MG PO DAILY Prednisone Tab (Prednisone), 10 MG PO DAILY Tamsulosin Hcl (Flomax), 0.4 MG PO BID Trazodone HCl (Trazodone HCl), 100 MG PO HS Scheduled PRN Ipratropium-Albuterol (Combivent Respimat), 1 PUFFS INH QID PRN for SOB/Wheezing Review of Systems Unable to obtain ROS due to AMS Physical Exam Vital Signs Date Time Temp Pulse Resp B/P Pulse Ox O2 Delivery O2 Flow Rate FiO2 07/03/16 14:53 94 24 145/97 95 Nasal Cannula 4.0 07/03/16 13:56 100 Nasal Cannula 4.0 07/03/16 13:26 96 Nasal Cannula 4.0 07/03/16 13:21 106 20 142/102 85 Room Air General Appearance: WD/WN, no apparent distress, + obese, + pertinent finding ( Pt is laying in bed sleeping with at bedside) Head: normocephalic, atraumatic Eyes: normal inspection ENT: hearing grossly normal Neck: supple Respiratory/Chest: chest non-tender, no respiratory distress, no accessory muscle use, + pertinent finding (crackles throughout (auscultated anteriorly); no wheezing noted) Cardiovascular: regular rate, rhythm, no edema, no murmur Abdomen/GI: normal bowel sounds, non tender, soft Back: + pertinent finding (did not examine back) Extremities/Musculoskelatal: normal inspection, no calf tenderness, no pedal edema, + pertinent finding (3 healed superficial abrasions noted to anterior aspect RLE) Neurologic/Psych: alert, normal mood/affect, oriented x 3, + pertinent finding (neuro exam difficult to obtain due to AMS) Skin: normal color, warm/dry Diagnostics Laboratory Results Results Past 24 Hours Test 07/03/16 13:50 07/03/16 13:55 07/03/16 13:56 07/03/16 14:45 Range/Units White Blood Count 13.23 4.8-10.8 K/uL Red Blood Count 4.05 4.7-6.1 M/uL Hemoglobin 10.7 14.0-18.0 g/dL Hematocrit 33.5 42-52 % Mean Corpuscular Volume 82.7 80-100 fL Mean Corpuscular Hemoglobin 26.4 25-34 pg Mean Corpuscular Hemoglobin Concent 31.9 32-36 g/dl Platelet Count 244 130-400 K/uL Mean Platelet Volume 10.9 7.4-10.4 fL Neutrophils (%) (Auto) 88.1 % Lymphocytes (%) (Auto) 5.3 % Monocytes (%) (Auto) 3.9 % Eosinophils (%) (Auto) 2.3 % Basophils (%) (Auto) 0.1 % Neutrophils # (Auto) 11.65 1.4-6.5 K/uL Lymphocytes # (Auto) 0.70 1.2-3.4 K/uL Monocytes # (Auto) 0.52 0.11-0.59 K/uL Eosinophils # (Auto) 0.31 0-0.5 K/uL Basophils # (Auto) 0.01 0-0.2 K/uL RDW Standard Deviation 48.5 36.4-46.3 fL RDW Coefficient of Variation 15.9 11.5-14.5 % Immature Granulocyte % (Auto) 0.3 % Immature Granulocyte # (Auto) 0.04 0.00-0.02 K/uL Prothrombin Time 10.7 9.0-12.0 SECONDS Prothromb Time International Ratio 1.0 0.9-1.1 Activated Partial Thromboplast Time 22.0 21.0-31.0 SECONDS Partial Thromboplastin Ratio 0.8 Sodium Level 141 136-145 mmol/L Potassium Level 3.4 3.5-5.1 mmol/L Chloride Level 100 98-107 mmol/L Carbon Dioxide Level 33 21-32 mmol/L Anion Gap 8.0 3-11 mmol/L Blood Urea Nitrogen 18 7-18 mg/dl Creatinine 1.10 0.60-1.40 mg/dl Est Creatinine Clear Calc Drug Dose 79.3 ml/min Estimated GFR () 75.7 Estimated GFR (Non- 65.3 BUN/Creatinine Ratio 16.4 10-20 Random Glucose 155 70-99 mg/dl Calcium Level 9.3 8.5-10.1 mg/dl Total Creatine Kinase 19 39-308 U/L Creatine Kinase MB < 0.5 0.5-3.6 ng/ml Creatine Kinase MB Ratio 0-3.0 Troponin I < 0.015 0-0.045 ng/ml Bedside Lactic Acid Venous 2.05 0.90-1.70 mmol/L Bedside Glucose 124 70-99 mg/dl Urine Color YELLOW Urine Appearance CLEAR CLEAR Urine pH 7.0 4.5-7.5 Urine Specific [place] 1.014 1.000-1.030 Urine Protein NEG NEG Urine Glucose (UA) NEG NEG Urine Ketones NEG NEG Urine Occult Blood NEG NEG Urine Nitrite NEG NEG Urine Bilirubin NEG NEG Urine Urobilinogen POS NEG Urine Leukocyte Esterase NEG NEG Test 07/03/16 16:14 Range/Units Microbiology Results 07/03/16 Blood Culture, Received Pending 07/03/16 Blood Culture, Received Pending 07/03/16 Urine Culture, Received Pending Diagnostic Radiology CXR IMPRESSION: Bibasilar parenchymal infiltrates. CT HEAD IMPRESSION: 1. There is no hemorrhage, mass effect, or evidence of acute territorial ischemia by CT criteria. 2. Senescent changes and remote infarct as above. EKG EKG: NSR at 94 bpm with RBBB and no acute ischemic changes; no change when compared to EKG from 06/05/16 Impression Assessment and Plan SEPSIS SECONDARY TO BILATERAL PNEUMONIA pt presented with AMS. tachy and hypoxic on arrival -admit to telemetry -meets SIRs criteria with tachycardia, leukocytosis >13k and lactic acid >3 -CXR + bilateral infiltrates -UA negative -blood, sputum and urine cx-pending -repeat lactic acid within 6 hrs -cont IVF and abx (Zosyn and Vanco) -cont supplemental oxygen -monitor closely on telemetry ALTERED MENTAL STATUS -likely secondary to above -CT head negative -hold off on further imaging for now; consider brain MRI and MRA head and neck if sxs dont improve in 24-48 hrs -consider neuro consult if no improvement RECENT GI BLEED -admitted for rectal bleed 1 month ago requiring transfusion -HgB stable at 10.7 -no active bleeding per H/O CVA -s/p CVA 1996; has residual R sided paresthesias and chronic nerve pain -cont ASA CHRONIC PAIN SYNDROME -s/p CVA 1996 -cont methadone and gabapentin HYPOTHYROIDISM -cont levothyroxine DEPRESSION -stable -cont Aricept and Cymbalta DVT PROPHYLAXIS -SCDs only in setting of recent GI bleed CODE STATUS -FULL CODE status per [facility] documents and conversation during previous admission DISPO -Discharge eval and PT/OT evals -Pt seen in collaboration with Dr Narayan. Please see his addendum for further details. Thanks! -Of note: patient will be followed by Dr. Taylor starting tomorrow AM ADDENDUM: This is a 75 year old male with PMH of CVA with right sided sensory deficits, recent history of aspiration, HTN, hypothyroid presents with lethargy, altered mental status. He is a resident at [facility] currently receiving therapy. Upon presentation, he was noted to have leukocytosis, tachycardia, lactic acidosis and CXR showed bilateral infiltrates. He had a CT head done which was negative. +lethargic, very difficult to arouse RRR, +S1, S2 lungs are clear when auscultating anteriorly Sepsis and Metabolic Encephalopathy secondary to Bilateral Pneumonia started on Zosyn and Vanco lactic acid > 3 given IVFs, rate of 125 recheck lactic acid if symptoms don't improve, further imaging can be considered VTE Prophylaxis VTE Risk Assessment Done? Y/N: Yes Risk Level: Moderate
[2016-07-03 19:33] VITALS: BP 111/65; PULSE 96; TEMP 38.1; O2SAT 95; Ht 185.4 cm; Wt 115.3 kg
[2016-07-03] MEDS: SODIUM CHLORIDE 0.9% 1000ML 1,000 ML IV SCH (19:49)
--- NOTE | 2016-07-03 19:52 | Pharmacy Progress Note ---
Pharmacy Antibiotic Consult Date of Service: Jul 03, 2016. Pharmacy Dosing Scope Pharmacy is consulted to initiate vancomycin and zosyn IV dosing therapy, order appropriate labs and adjust drug dose/frequency. Subjective The patient is a 75 year old male admitted on Jul 03, 2016 at 16:59. Objective Height (Feet): 6 Height (Inches): 1.00 Weight (Kilograms): 121.700 Lab Results (24hrs): Laboratory Tests Test 07/03/16 13:50 BUN/Creatinine Ratio 16.4 Blood Urea Nitrogen 18 mg/dl Creatinine 1.10 mg/dl White Blood Count 13.23 K/uL Red Blood Count 4.05 M/uL Hemoglobin 10.7 g/dL Hematocrit 33.5 % Mean Corpuscular Volume 82.7 fL Mean Corpuscular Hemoglobin 26.4 pg Mean Corpuscular Hemoglobin Concent 31.9 g/dl Platelet Count 244 K/uL Mean Platelet Volume 10.9 fL Neutrophils (%) (Auto) 88.1 % Lymphocytes (%) (Auto) 5.3 % Monocytes (%) (Auto) 3.9 % Eosinophils (%) (Auto) 2.3 % Basophils (%) (Auto) 0.1 % Neutrophils # (Auto) 11.65 K/uL Lymphocytes # (Auto) 0.70 K/uL Monocytes # (Auto) 0.52 K/uL Eosinophils # (Auto) 0.31 K/uL Basophils # (Auto) 0.01 K/uL Assessment & Plan Patient started on vancomycin and zosyn for possible pneumonia. BC x 2 ordered and UC ordered. Vancomycin: * Received LD of 2000 mg (~17 mg/kg) x 1 in ED * Will start MD of 1500 mg (~12 mg/kg) iv q 12 hrs to achieve an estimated trough ~17 mcg/ml (goal 15-20 mcg/ml for PNA) * Estimated kinetics: t1/2~10 hrs, ke~.069 hr-1 ; was less aggressive with dosing due to risk of accumulation since BMI>35 kg/m2 * Will obtain a trough prior to the 0400 dose on 07/05 to ensure therapeutic Zosyn: * 4.5 gm iv x 1 in ED; will dose with 4.5 gm iv q 8 hr which is appropriate for CrCl >20 ml/min (actual 79 ml/min) Pharmacy will continue to follow and will adjust dose/frequency as necessary. Thank you
[2016-07-03] MEDS ORDERED: ACETAMINOPHEN 650 MG SUPP PR PRN (20:30)
[2016-07-03 20:40] VITALS: BP 117/56; PULSE 93; TEMP 38.2; O2SAT 93
[2016-07-03] MEDS: TRAZODONE HCL 100 MG TAB PO SCH (21:00)
[2016-07-03] MEDS: GABAPENTIN 600 MG TAB PO SCH (21:00)
[2016-07-03] MEDS: LACTOBACILLUS ACIDOPHILUS (FLORANEX) TAB PO SCH (21:00)
[2016-07-03] MEDS: TAMSULOSIN HCL 0.4 MG CAP PO SCH (21:00)
[2016-07-03] MEDS: DOCUSATE SODIUM 100 MG CAP PO SCH (21:00)
[2016-07-03] MEDS: DONEPEZIL HCL 5 MG TAB PO SCH (21:00)
[2016-07-03] MEDS: BIMATOPROST 0.01% OP SOLN 2.5 ML BTL OPB SCH (21:14)
[2016-07-03] MEDS: PIPERACILL/TAZOBAC IV 4.5 GM in DEXTROSE 5% 100ML IV SCH (21:16)
--- NOTE | 2016-07-03 21:17 | EMERGENCY ROOM VISIT NOTE ---
History Report prepared by Marlyn: Nayely Marie Under the Supervision of: Dr. Pepe Simons M.D. First contact with patient: 13:39 Chief Complaint: ALTERED MENTAL STATUS Stated Complaint: ALTERED MENTAL STATUS History of Present Illness The patient is a 75 year old male who presents to the Emergency Room with complaints of a sudden altered mental status that began just prior to arrival. Per the patient's , the patient has a history of a major stroke in 1996 that left him with the loss of mobility of his right side. She notes that recently the patient had rectal bleeding. The patient's notes that the patient was given a unit of blood here and then was transferred to [facility]. She states that the patient has been living at the [facility]. The patient's states that over a week and a half ago, the patient had an episode where he could not hold anything, noting that everything fell to the floor. She states that the patient couldn't talk. The patient's states that this went on for a week, but states that this past he started to seem better . She states that today, the patient was fine this morning per the staff at the [facility]. The patient's states that the patient went to physical therapy, but was noted to not be as chatty as usual. She states that the patient then had the change in mental state, stating that the patient was not speaking. The patient's denies any recent report of recent falls. The history is limited secondary to altered mental status. Source of History: spouse/significant other () History Limited By: AMS Onset: prior to arrival Position: other (global) Quality: other Timing: other (sudden) Review of Systems The history is limited secondary to altered mental status. Past Medical & Surgical Medical Problems: (1) Chronic pain syndrome (2) COPD (chronic obstructive pulmonary disease) (3) CVA (cerebral infarction) (4) GI bleed (5) Hypothyroidism (6) FELICITA (iron deficiency anemia) (7) Monoclonal gammopathy (8) PMR (polymyalgia rheumatica) (9) Pneumonia (10) Right-sided nerve pain (11) Right-sided numbness (12) Sleep apnea Surgical Problems: (1) H/O esophagogastroduodenoscopy (2) H/O hernia repair (3) S/P cholecystectomy (4) S/P small bowel resection Family History Diabetes mellitus Gallbladder disease Heart disease Hypertension Kidney disease Kidney stones Lung disease Stroke Social History Smoking Status: Unknown if Ever Smoked Alcohol Use: none Drug Use: none Marital Status: Housing Status: lives with family, lives with significant other Occupation Status: retired Current/Historical Medications Scheduled Aspirin (Aspirin Ec), 81 MG PO DAILY Bimatoprost (Lumigan), 1 DROPS OPB HS Celecoxib (Celebrex), 50 MG PO BID Cholecalciferol (Vitamin D3), 2,000 UNITS PO DAILY Cyanocobalamin (Vitamin B-12 1000 Mcg), 1,000 MCG PO QAM Docusate Sodium (Colace), 1 CAP PO BID Donepezil HCl (Donepezil HCl), 5 MG PO HS Duloxetine Hcl (Cymbalta), 60 MG PO DAILY Finasteride (Proscar), 5 MG PO DAILY Fish Oil ([place]-3), 1 CAP PO DAILY Gabapentin (Neurontin), 600 MG PO TID Lactobacillus (Acidophilus), 1 CAP PO BID Levothyroxine Sodium (Levothyroxine Sodium), 25 MCG PO 3XWK Levothyroxine Sodium (Levothyroxine Sodium), 50 MCG PO 4XWK Losartan Potassium (Cozaar), 100 MG PO DAILY Methadone Hcl (Dolophine), 40 MG PO QAM Methadone Hcl (Dolophine), 30 MG PO QPM/HS Omeprazole (Prilosec), 20 MG PO DAILY Prednisone Tab (Prednisone), 10 MG PO DAILY Tamsulosin Hcl (Flomax), 0.4 MG PO BID Trazodone HCl (Trazodone HCl), 100 MG PO HS Scheduled PRN Ipratropium-Albuterol (Combivent Respimat), 1 PUFFS INH QID PRN for SOB/Wheezing Allergies Coded Allergies: Iodinated Diagnostic Agents (Verified Allergy, Unknown, HIVES, 07/03/16) Physical Exam Vital Signs Date Time Temp Pulse Resp B/P Pulse Ox O2 Delivery O2 Flow Rate FiO2 07/03/16 14:53 94 24 145/97 95 Nasal Cannula 4.0 07/03/16 13:56 100 Nasal Cannula 4.0 07/03/16 13:26 96 Nasal Cannula 4.0 07/03/16 13:21 106 20 142/102 85 Room Air Physical Exam GENERAL: Awake, lethargic appearing, no acute distress, not responding to voice commands. HENT: Normocephalic, atraumatic. Oropharynx unremarkable. EYES: Normal conjunctiva. Sclera non-icteric. PERRLA. NECK: Supple. No nuchal rigidity. FROM. No JVD. RESPIRATORY: Rhonchi on the right side. CARDIAC: Regular rate, normal rhythm. Extremities warm and well perfused. Pulses equal. ABDOMEN: Soft, non-distended. No tenderness to palpation. No rebound or guarding. No masses. RECTAL: Deferred. MUSCULOSKELETAL: Chest examination reveals no tenderness. The back is symmetrical on inspection without obvious abnormality. There is no CVA tenderness to palpation. No joint edema. LOWER EXTREMITIES: 2+ lower extremity edema. Calves are equal size bilaterally and non-tender. No discoloration. NEURO: Altered sensorium. Withdraws to painful stimuli with IV, not following commands. Unable to assess full neuro function secondary to inability to cooperate. SKIN: No rash or jaundice noted. Medical Decision & Procedures ER Provider Diagnostic Interpretation: X ray results as stated below per my interpretation and radiologist interpretation. Other radiology results as stated below per my review and radiologist interpretation CT SCAN OF THE BRAIN WITHOUT IV CONTRAST CLINICAL HISTORY: Change in mental status. COMPARISON STUDY: CT of the brain dated 05/16/2016. TECHNIQUE: Unenhanced axial CT scan of the brain is performed from the vertex to the skull base. CT DOSE: 953.42 mGycm FINDINGS: Brain parenchyma: Left parietal and septal malacia is unchanged and consistent with a remote infarct. There are age-related involutional changes noting mild subcortical and periventricular microangiopathic change. Wallerian degeneration is noted in the left aspect of the ramirez. There is no hemorrhage, mass effect, or evidence of acute territorial ischemia by CT criteria. Henry-white matter is preserved. No extra-axial fluid collection is seen. Ventricles, sulci, cisterns: Prominent secondary to involutional change. Intracranial vasculature: There is atherosclerotic calcification of the cavernous carotid arteries. Calvarium: Unremarkable. Sinuses and mastoids: Trace mucosal thickening is seen within the maxillary antra. Mild mucosal thickening is also identified in the ethmoid sinuses. Findings suggest previous paranasal sinus surgery. There are trace mastoid effusions. Orbits: The bony orbits are grossly intact. IMPRESSION: 1. There is no hemorrhage, mass effect, or evidence of acute territorial ischemia by CT criteria. 2. Senescent changes and remote infarct as above. Electronically signed by: Raoul Covington M.D. 07/03/2016 2:19 PM Dictated Date/Time: 07/03/2016 2:16 PM CHEST ONE VIEW PORTABLE CLINICAL HISTORY: altered. h/o aspiration dyspnea COMPARISON STUDY: 06/05/2016 FINDINGS: Poorly defined bilateral parenchymal infiltrative change. Mid and upper lungs are considered clear. Diaphragms smooth. IMPRESSION: Bibasilar parenchymal infiltrates. Electronically signed by: Ar Sarabia M.D. 07/03/2016 3:21 PM Dictated Date/Time: 07/03/2016 3:21 PM Laboratory Results 07/03/16 13:50 Red Blood Count 4.05, Mean Corpuscular Volume 82.7, Mean Corpuscular Hemoglobin 26.4, Mean Corpuscular Hemoglobin Concent 31.9, Mean Platelet Volume 10.9, Neutrophils (%) (Auto) 88.1, Lymphocytes (%) (Auto) 5.3, Monocytes (%) (Auto) 3.9, Eosinophils (%) (Auto) 2.3, Basophils (%) (Auto) 0.1, Neutrophils # (Auto) 11.65, Lymphocytes # (Auto) 0.70, Monocytes # (Auto) 0.52, Eosinophils # (Auto) 0.31, Basophils # (Auto) 0.01 07/03/16 13:50 Test 07/03/16 13:50 07/03/16 13:55 07/03/16 13:56 07/03/16 14:45 White Blood Count 13.23 K/uL (4.8-10.8) Red Blood Count 4.05 M/uL (4.7-6.1) Hemoglobin 10.7 g/dL (14.0-18.0) Hematocrit 33.5 % (42-52) Mean Corpuscular Volume 82.7 fL (80-100) Mean Corpuscular Hemoglobin 26.4 pg (25-34) Mean Corpuscular Hemoglobin Concent 31.9 g/dl (32-36) Platelet Count 244 K/uL (130-400) Mean Platelet Volume 10.9 fL (7.4-10.4) Neutrophils (%) (Auto) 88.1 % Lymphocytes (%) (Auto) 5.3 % Monocytes (%) (Auto) 3.9 % Eosinophils (%) (Auto) 2.3 % Basophils (%) (Auto) 0.1 % Neutrophils # (Auto) 11.65 K/uL (1.4-6.5) Lymphocytes # (Auto) 0.70 K/uL (1.2-3.4) Monocytes # (Auto) 0.52 K/uL (0.11-0.59) Eosinophils # (Auto) 0.31 K/uL (0-0.5) Basophils # (Auto) 0.01 K/uL (0-0.2) RDW Standard Deviation 48.5 fL (36.4-46.3) RDW Coefficient of Variation 15.9 % (11.5-14.5) Immature Granulocyte % (Auto) 0.3 % Immature Granulocyte # (Auto) 0.04 K/uL (0.00-0.02) Prothrombin Time 10.7 SECONDS (9.0-12.0) Prothromb Time International Ratio 1.0 (0.9-1.1) Activated Partial Thromboplast Time 22.0 SECONDS (21.0-31.0) Partial Thromboplastin Ratio 0.8 Anion Gap 8.0 mmol/L (3-11) Est Creatinine Clear Calc Drug Dose 79.3 ml/min Estimated GFR () 75.7 Estimated GFR (Non- 65.3 BUN/Creatinine Ratio 16.4 (10-20) Calcium Level 9.3 mg/dl (8.5-10.1) Total Creatine Kinase 19 U/L (39-308) Creatine Kinase MB < 0.5 ng/ml (0.5-3.6) Creatine Kinase MB Ratio (0-3.0) Troponin I < 0.015 ng/ml (0-0.045) Bedside Lactic Acid Venous 2.05 mmol/L (0.90-1.70) Bedside Glucose 124 mg/dl (70-99) Urine Color YELLOW Urine Appearance CLEAR (CLEAR) Urine pH 7.0 (4.5-7.5) Urine Specific [place] 1.014 (1.000-1.030) Urine Protein NEG (NEG) Urine Glucose (UA) NEG (NEG) Urine Ketones NEG (NEG) Urine Occult Blood NEG (NEG) Urine Nitrite NEG (NEG) Urine Bilirubin NEG (NEG) Urine Urobilinogen POS (NEG) Urine Leukocyte Esterase NEG (NEG) Laboratory results reviewed by me Medications Administered Medications (Trade) Dose Ordered Sig/Milka Route Start Time Stop Time Status Last Admin Dose Admin Sodium Chloride 1,000 ml @ 50 mls/hr Q20H IV 07/03/16 13:41 07/03/16 19:06 DC 07/03/16 14:39 50 MLS/HR Sodium Chloride 1,000 ml @ 999 mls/hr Q1H1M STAT IV 07/03/16 15:01 07/03/16 16:02 DC 07/03/16 15:29 999 MLS/HR Sodium Chloride (Nss 1000ml) 1,000 ml @ 200 mls/hr Q5H STAT IV 07/03/16 15:01 07/03/16 19:06 DC 07/03/16 15:30 200 MLS/HR Piperacillin Sod/ Tazobactam Sod 4.5 gm 4.5 gm NOW STAT IV 07/03/16 15:01 07/03/16 15:04 DC 07/03/16 15:30 4.5 GM Vancomycin HCl 2000 mg/Sodium Chloride 540 ml @ 200 mls/hr ONE STAT IV 07/03/16 15:01 07/03/16 17:42 DC 07/03/16 15:53 200 MLS/HR Sodium Chloride (Nss 1000ml) 1,000 ml @ 125 mls/hr Q8H IV 07/03/16 16:58 08/02/16 16:57 07/03/16 19:49 125 MLS/HR ECG Indication: altered mental status Rate (beats per minute): 94 Rhythm: normal sinus Findings: RBBB, no acute ischemic change, no ectopy ED Course 1340: The patient was evaluated in room B12B. A complete history and physical exam was performed. 1341: Ordered Sodium Chloride 1000 ml @ 50 mls/hr IV. 1453: I reevaluated the patient and he is hemodynamically stable. 1501: Ordered Vancomycin HCl 2000 mg/Sodium Chloride 540 ml @ 200 mls/hr IV, Zosyn IV 4.5 gm IV, Sodium Chloride 1000 ml @ 200 mls/hr IV, Sodium Chloride 1000 ml @ 999 mls/hr IV. 1513: I discussed the patients lab results with the patients . 1600: I discussed the patients case with Johanny Cevallos PA-C. She is going to evaluate the patient for further treatment. 1602: I reevaluated the patient and he is resting. I discussed all the exam findings with the patients and I discussed the treatment plan. She verbalized complete understanding and agreement. The patient will be evaluated for further treatment. Medical Decision Triage Nursing notes reviewed. The patient's presentation and history were concerning for altered mental status. Etiologies such as metabolic, infection, hypo/hyperglycemia, electrolyte abnormalities, cardiac sources, intracerebral event, toxicologic, neurologic, as well as others were entertained. Patient was evaluated. He was altered. Blood work and imaging were obtained. The patient had a mild leukocytosis and elevated lactate. Chest x-ray was concerning for infiltrate. The patient has a history of aspiration. Zosyn and vancomycin was ordered. CAT scan of the head did not reveal any acute findings. The patient's states that IV treatment with antibiotics is reasonable. The patient was given IV fluids. I suspect the patient's mental status alterations from his pneumonia and sepsis, not an acute CVA. He is not a thrombolytic candidate given his recent GI bleed. The patient had a consultation placed with internal medicine. Patient was evaluated in the Emergency Room and admitted for further treatment. The chart was completed utilizing Floored Speech voice recognition software. Grammatical errors, random word insertions, pronoun errors, and incomplete sentences are an occasional consequence of this system due to software limitations, ambient noise, and hardware issues. Any formal questions or concerns about the content, text, or information contained within the body of this dictation should be directly addressed to the physician for clarification. Consults Time Called: 1550 Consulting Physician: Johanny Bray PA-C Returned Call: 1600 I discussed the patients case with Johanny Cevallos PA-C. She is going to evaluate the patient for further treatment. Impression Primary Impression: Altered mental status Additional Impressions: Sepsis Pneumonia Scribe Attestation The scribe's documentation has been prepared under my direction and personally reviewed by me in its entirety. I confirm that the note above accurately reflects all work, treatment, procedures, and medical decision making performed by me. Departure Information Dispostion Being Evaluated By Hospitalist Referrals Oren Davis (PCP) Problem Qualifiers
[2016-07-03 23:35] VITALS: BP 92/57; PULSE 86; TEMP 36.3; O2SAT 92
[2016-07-04] VITALS (7 sets, daily range): BP systolic 104–156; BP diastolic 54–70; PULSE 73–83; TEMP 36.6–37.1; O2SAT 94–96
[2016-07-04] MEDS: SODIUM CHLORIDE 0.9% 1000ML 1,000 ML IV SCH ×3 (01:10→18:48)
[2016-07-04 02:39] LABS: PARTIAL THROMBOPLASTIN RATIO 1.3
[2016-07-04] MEDS: VANCOMYCIN INJ 1,500 MG in SODIUM CHLORIDE 0.9% 500ML 500 ML IV SCH ×2 (03:48→18:47)
[2016-07-04] MEDS: PIPERACILL/TAZOBAC IV 4.5 GM in DEXTROSE 5% 100ML IV SCH ×3 (06:18→21:53)
[2016-07-04] MEDS: LEVOTHYROXINE 25 MCG TAB PO SCH (06:18)
[2016-07-04] MEDS: PANTOprazole SOD 40 MG TAB PO SCH (09:46)
[2016-07-04] MEDS: LOSARTAN POTASSIUM 50 MG TAB PO SCH (09:46)
[2016-07-04] MEDS: OMEGA-3 (PURIFIED FISH OIL) 1 GM CAP PO SCH (09:46)
[2016-07-04] MEDS: ASPIRIN 81 MG ECTAB PO SCH (09:46)
[2016-07-04] MEDS: GABAPENTIN 600 MG TAB PO SCH ×3 (09:47→21:53)
[2016-07-04] MEDS: LACTOBACILLUS ACIDOPHILUS (FLORANEX) TAB PO SCH ×2 (09:47→21:53)
[2016-07-04] MEDS: TAMSULOSIN HCL 0.4 MG CAP PO SCH ×2 (09:47→21:52)
[2016-07-04] MEDS: DULOXETINE HCL 60 MG CAP PO SCH (09:47)
[2016-07-04] MEDS: DOCUSATE SODIUM 100 MG CAP PO SCH ×2 (09:47→21:52)
[2016-07-04] MEDS: FINASTERIDE 5 MG TAB PO SCH (09:47)
[2016-07-04] MEDS: CYANOCOBALAMIN 500 MCG TAB (VIT B-12) PO SCH (09:47)
[2016-07-04] MEDS: CHOLECALCIFEROL 1000 INTER.UNIT TAB PO SCH (09:47)
[2016-07-04] MEDS: METHADONE HCL 10 MG TAB PO SCH (09:49)
[2016-07-04 10:26] LABS: HEMATOCRIT 26.6 % (42-52); MEAN CELL VOLUME 80.9 fL (80-100); MEAN CORPUSCULAR HEMOGLOBIN 25.8 pg (25-34); MEAN PLATELET VOLUME 10.1 fL (7.4-10.4); PLATELET COUNT 176 K/uL (130-400); RED BLOOD COUNT 3.29 M/uL (4.7-6.1); WHITE BLOOD COUNT 14.89 K/uL (4.8-10.8)
[2016-07-04 10:50] LABS: BUN/CREATININE RATIO 20.9 (10-20); CALCIUM 8.2 mg/dl (8.5-10.1); CREATININE 0.97 mg/dl (0.60-1.40); MAGNESIUM 1.6 mg/dl (1.8-2.4); POTASSIUM 3.3 mmol/L (3.5-5.1)
[2016-07-04] MEDS ORDERED: POTASSIUM CHLORIDE 10 MEQ TABCR PO ONE (11:30)
[2016-07-04] MEDS: MAGNESIUM SULFATE 1GM / D5W 1 GM in PREMIXED IN D5W 100 ML IV SCH ×2 (11:52→12:49)
--- NOTE | 2016-07-04 15:48 | Progress Note ---
Internal Med Progress Note Date of Service: Jul 04, 2016. Provider Documentation: SUBJECTIVE: patient mental status improving talking ok denies any pain or sob has cough afebrile eating ok in room OBJECTIVE: Vital Signs-as noted below Exam: General-alert and awake. Not in distress ENT-normal hearing Neck-no neck masses Lungs-cta b/l no wheezing or crackles Heart-s1 and s2 heard, regular rate and rhythm no murmurs Abdomen-soft bowel sounds present non tender no distension Extremities- no erythema Neuro-alert and awake moves extremities Lab data as noted below. ASSESSMENT & PLAN: SEPSIS SECONDARY TO BILATERAL PNEUMONIA pt presented with AMS. tachy and hypoxic on arrival -lactic acid 3.3 on presentation which trending now cxr bibasilar infiltrates ct head unremarkable hemodynamics stable currently on iv zosyn and iv vancomycin improving will cut back on fluids will f/u cx ALTERED MENTAL STATUS Most likely secondary to above CT head negative improving will monitor RECENT GI BLEED admitted for rectal bleed 1 month ago requiring transfusion was transferred to [place] [facility] 10.7 to 8.5 no signs of bleeding hemodilution? will f/u labs H/O CVA s/p CVA 1996; has residual R sided paresthesias and chronic nerve pain On ASA CHRONIC PAIN SYNDROME since s/p CVA 1996 On methadone and gabapentin HYPOTHYROIDISM On levothyroxine DEPRESSION stable on Aricept and Cymbalta DVT PROPHYLAXIS SCDs only in setting of recent GI bleed CODE STATUS FULL CODE [facility] and conversation during previous admission DISPO to be determined pt/ot prior to discharge social service to help with discharge planning Vital Signs: Date Time Temp Pulse Resp B/P Pulse Ox O2 Delivery O2 Flow Rate FiO2 07/04/16 15:37 36.8 74 17 156/70 94 Room Air 07/04/16 12:10 Room Air 07/04/16 11:26 36.8 77 16 114/56 96 Room Air 07/04/16 08:10 96 Room Air 4.0 07/04/16 08:10 Room Air 07/04/16 07:00 36.6 74 18 104/61 96 Room Air 07/04/16 04:00 Nasal Cannula 4.0 07/04/16 03:10 37.1 78 21 111/65 95 Nasal Cannula 4.0 07/04/16 00:20 83 114/54 07/04/16 00:00 Nasal Cannula 4.0 07/03/16 23:35 36.3 86 24 92/57 92 Nasal Cannula 4.0 07/03/16 20:40 38.2 93 16 117/56 93 4.0 07/03/16 19:33 38.1 96 14 111/65 95 Nasal Cannula 4.0 07/03/16 17:57 94 25 140/85 94 07/03/16 17:32 94 25 140/85 94 Nasal Cannula 4.0 Lab Results: Results Past 24 Hours Test 07/03/16 16:57 07/03/16 21:43 07/04/16 02:12 07/04/16 10:03 Range/Units Lactic Acid Level 3.3 2.1 0.4-2.0 mmol/L Activated Partial Thromboplast Time 33.4 21.0-31.0 SECONDS Partial Thromboplastin Ratio 1.3 White Blood Count 14.89 4.8-10.8 K/uL Red Blood Count 3.29 4.7-6.1 M/uL Hemoglobin 8.5 14.0-18.0 g/dL Hematocrit 26.6 42-52 % Mean Corpuscular Volume 80.9 80-100 fL Mean Corpuscular Hemoglobin 25.8 25-34 pg Mean Corpuscular Hemoglobin Concent 32.0 32-36 g/dl RDW Standard Deviation 48.2 36.4-46.3 fL RDW Coefficient of Variation 16.2 11.5-14.5 % Platelet Count 176 130-400 K/uL Mean Platelet Volume 10.1 7.4-10.4 fL Sodium Level 145 136-145 mmol/L Potassium Level 3.3 3.5-5.1 mmol/L Chloride Level 106 98-107 mmol/L Carbon Dioxide Level 30 21-32 mmol/L Anion Gap 9.0 3-11 mmol/L Blood Urea Nitrogen 20 7-18 mg/dl Creatinine 0.97 0.60-1.40 mg/dl Est Creatinine Clear Calc Drug Dose 89.2 ml/min Estimated GFR () 88.1 Estimated GFR (Non- 76.1 BUN/Creatinine Ratio 20.9 10-20 Random Glucose 69 70-99 mg/dl Calcium Level 8.2 8.5-10.1 mg/dl Magnesium Level 1.6 1.8-2.4 mg/dl Vitamin B12 Level 1559 211-911 pg/mL Folate 8.76 >5.38 ng/mL Microbiology Results 07/04/16 MRSA DNA Surveillance Screen, Received Pending
[2016-07-04] MEDS: BIMATOPROST 0.01% OP SOLN 2.5 ML BTL OPB SCH (21:49)
[2016-07-04] MEDS: DONEPEZIL HCL 5 MG TAB PO SCH (21:51)
[2016-07-04] MEDS: TRAZODONE HCL 100 MG TAB PO SCH (21:52)
[2016-07-05] VITALS (8 sets, daily range): BP systolic 136–176; BP diastolic 73–84; PULSE 65–69; TEMP 36.4–36.8; O2SAT 94–99
[2016-07-05] MEDS ORDERED: VANCOMYCIN TROUGH ONE (03:30)
[2016-07-05 04:26] LABS: CREATININE 0.87 mg/dl (0.60-1.40)
[2016-07-05] MEDS: VANCOMYCIN INJ 1,500 MG in SODIUM CHLORIDE 0.9% 500ML 500 ML IV SCH ×2 (05:04→15:55)
[2016-07-05] MEDS: PIPERACILL/TAZOBAC IV 4.5 GM in DEXTROSE 5% 100ML IV SCH ×3 (05:32→21:45)
[2016-07-05] MEDS: LEVOTHYROXINE 50 MCG TAB PO SCH (05:44)
[2016-07-05] MEDS ORDERED: HALOPERIDOL LACTATE 5 MG/ML 1 ML VIAL IM PRN (06:45)
[2016-07-05] MEDS ORDERED: HALOPERIDOL 1 MG TAB PO PRN (06:45)
[2016-07-05] MEDS ORDERED: HALOPERIDOL LACTATE 5 MG/ML 1 ML VIAL ONE (06:50)
[2016-07-05] MEDS: CYANOCOBALAMIN 500 MCG TAB (VIT B-12) PO SCH (09:00)
[2016-07-05] MEDS: FINASTERIDE 5 MG TAB PO SCH (09:00)
[2016-07-05] MEDS: OMEGA-3 (PURIFIED FISH OIL) 1 GM CAP PO SCH (09:00)
[2016-07-05] MEDS: ASPIRIN 81 MG ECTAB PO SCH (09:00)
[2016-07-05] MEDS: DOCUSATE SODIUM 100 MG CAP PO SCH ×2 (09:00→21:06)
[2016-07-05] MEDS: LACTOBACILLUS ACIDOPHILUS (FLORANEX) TAB PO SCH ×2 (09:00→21:08)
[2016-07-05] MEDS: TAMSULOSIN HCL 0.4 MG CAP PO SCH ×2 (09:00→21:07)
[2016-07-05] MEDS: PANTOprazole SOD 40 MG TAB PO SCH (09:00)
[2016-07-05] MEDS: CHOLECALCIFEROL 1000 INTER.UNIT TAB PO SCH (09:00)
[2016-07-05] MEDS: DULOXETINE HCL 60 MG CAP PO SCH (09:15)
[2016-07-05] MEDS: LOSARTAN POTASSIUM 50 MG TAB PO SCH (09:15)
[2016-07-05] MEDS: METHADONE HCL 10 MG TAB PO SCH (09:15)
[2016-07-05] MEDS: GABAPENTIN 600 MG TAB PO SCH ×3 (09:15→21:07)
--- NOTE | 2016-07-05 12:27 | Pharmacy Progress Note ---
Pharmacy Antibiotic Prog Note Date of Service: Jul 05, 2016. Subjective: The patient is currently receiving vancomycin and zosyn for possible PNA The patient is currently on day # 3 of IV therapy. Objective: Height (Feet): 6 Height (Inches): 1.00 Weight (Kilograms): 115.300 Levels: Item Value Date Time Vancomycin Level Trough 20.9 mcg/ml 07/05/16 0325 Lab Results (24hrs): Laboratory Tests Test 07/05/16 03:25 07/05/16 06:34 Creatinine 0.87 mg/dl Micro Results: Item Value Date Time MRSA DNA Surveillance Screen - Final Complete 07/04/16 1445 Nasal Specimen Negative for MRSA by DNA Probe Urine Culture - Final Complete 07/03/16 1445 Urine,Catheterized NO GROWTH - LESS THAN 1,000 COLONIES/ML Blood Culture - Preliminary Resulted 07/03/16 1420 Blood NO GROWTH TO DATE. Blood Culture - Preliminary Resulted 07/03/16 1350 Blood NO GROWTH TO DATE. Assessment & Plan: Patient currently on vancomycin and zosyn for possible pneumonia. BC x 2 are no growth, MRSA nasal swab is negative, UC not suggestive of UTI. Vancomycin: * Trough level this am was ~20.9 mcg/ml (goal 15-20 mcg/ml for PNA) ; previous dose was given about ~2.5 hours late so actual level probably closer to 15 mcg/ ml ; Will continue with current regimen of 1500 mg iv q 12 hrs * Renal function appears stable, CrCl today ~99 ml/min * Will plan on obtaining trough in next 2-3 days if vancomycin is to be continued Zosyn: * 4.5 gm iv q 8 hrs (appropriate for CrCl >20 ml/min; BMI>/35 kg/m2; actual CrCl ~99ml/min, BMI~35) Pharmacy will continue to follow and will adjust dose/frequency as necessary. Thank you
[2016-07-05] MEDS: SODIUM CHLORIDE 0.9% 1000ML 1,000 ML IV SCH (14:13)
[2016-07-05 14:45] LABS: BASO % 0.1 %; BASO ABS # 0.01 K/uL (0-0.2); EOS % 5.8 %; HEMATOCRIT 24.3 % (42-52); IG% 0.3 %; LYMPH % 20.4 %; LYMPH ABS # 1.36 K/uL (1.2-3.4); MEAN CELL VOLUME 79.9 fL (80-100); MEAN CORPUSCULAR HGB CONC 32.5 g/dl (32-36); MEAN PLATELET VOLUME 9.4 fL (7.4-10.4); NEUT % 66.4 %; PLATELET COUNT 159 K/uL (130-400); RED BLOOD COUNT 3.04 M/uL (4.7-6.1); WHITE BLOOD COUNT 6.67 K/uL (4.8-10.8)
[2016-07-05 15:12] LABS: BUN/CREATININE RATIO 11.9 (10-20); CALCIUM 8.1 mg/dl (8.5-10.1); COMPLETE YES; MAGNESIUM 1.9 mg/dl (1.8-2.4); POLYCHROMASIA 1+; POTASSIUM 3.1 mmol/L (3.5-5.1)
[2016-07-05 15:22] LABS: THYROID STIMULATING HORMONE 0.775 uIu/ml (0.300-4.500)
--- NOTE | 2016-07-05 15:41 | Progress Note ---
Internal Med Progress Note Date of Service: Jul 05, 2016. Provider Documentation: SUBJECTIVE: last night was agitated pulled out his iv line says he is ok now to have iv line afebrile eating ok denies any sob or pain OBJECTIVE: Vital Signs-as noted below Exam: General-alert and awake. Not in distress ENT-normal hearing Neck-no neck masses Lungs-cta b/l no wheezing or crackles Heart-s1 and s2 heard, regular rate and rhythm no murmurs Abdomen-soft bowel sounds present non tender no distension Extremities- no erythema Neuro-alert and awake moves extremities Lab data as noted below. ASSESSMENT & PLAN: SEPSIS SECONDARY TO BILATERAL PNEUMONIA pt presented with AMS. tachy and hypoxic on arrival -lactic acid 3.3 on presentation which trending now cxr bibasilar infiltrates ct head unremarkable hemodynamics stable currently on iv zosyn and iv vancomycin improving will cut back on fluids cx no growth so far continue iv abx for 1-2days more ALTERED MENTAL STATUS Most likely secondary to above CT head negative improving will monitor Delirium haldol prn will monitor RECENT GI BLEED admitted for rectal bleed 1 month ago requiring transfusion was transferred to [place] [facility] 10.7 to 8.5 no signs of bleeding hemodilution? hb 7.9 today will check stool for Hemoccult recheck labs H/O CVA s/p CVA 1996; has residual R sided paresthesias and chronic nerve pain On ASA CHRONIC PAIN SYNDROME since s/p CVA 1996 On methadone and gabapentin HYPOTHYROIDISM On levothyroxine DEPRESSION stable on Aricept and Cymbalta DVT PROPHYLAXIS SCDs only in setting of recent GI bleed CODE STATUS FULL CODE status per [facility] documents and conversation during previous admission DISPO to be determined pt/ot prior to discharge social service to help with discharge planning Vital Signs: Date Time Temp Pulse Resp B/P Pulse Ox O2 Delivery O2 Flow Rate FiO2 07/05/16 14:50 36.4 69 20 165/81 99 07/05/16 09:15 Room Air 07/05/16 09:15 96 Room Air 07/05/16 05:27 36.8 68 20 136/73 94 Room Air 07/05/16 04:59 Room Air 07/05/16 00:57 69 20 145/75 94 Room Air 07/05/16 00:29 Nasal Cannula 4.0 07/05/16 00:19 36.8 65 20 173/79 94 Room Air 07/04/16 20:00 Room Air 07/04/16 19:30 36.9 73 14 150/68 94 Room Air 07/04/16 16:00 Room Air Lab Results: Results Past 24 Hours Test 07/05/16 03:25 07/05/16 06:41 07/05/16 14:35 Range/Units Creatinine 0.87 1.00 0.60-1.40 mg/dl Est Creatinine Clear Calc Drug Dose 99.5 84.9 ml/min Estimated GFR () 97.8 85.0 Estimated GFR (Non- 84.4 73.3 Vancomycin Level Trough 20.9 SEE COMMENT mcg/ml Bedside Glucose 83 70-99 mg/dl White Blood Count 6.67 4.8-10.8 K/uL Red Blood Count 3.04 4.7-6.1 M/uL Hemoglobin 7.9 14.0-18.0 g/dL Hematocrit 24.3 42-52 % Mean Corpuscular Volume 79.9 80-100 fL Mean Corpuscular Hemoglobin 26.0 25-34 pg Mean Corpuscular Hemoglobin Concent 32.5 32-36 g/dl Platelet Count 159 130-400 K/uL Mean Platelet Volume 9.4 7.4-10.4 fL Neutrophils (%) (Auto) 66.4 % Lymphocytes (%) (Auto) 20.4 % Monocytes (%) (Auto) 7.0 % Eosinophils (%) (Auto) 5.8 % Basophils (%) (Auto) 0.1 % Neutrophils # (Auto) 4.42 1.4-6.5 K/uL Lymphocytes # (Auto) 1.36 1.2-3.4 K/uL Monocytes # (Auto) 0.47 0.11-0.59 K/uL Eosinophils # (Auto) 0.39 0-0.5 K/uL Basophils # (Auto) 0.01 0-0.2 K/uL RDW Standard Deviation 46.5 36.4-46.3 fL RDW Coefficient of Variation 15.7 11.5-14.5 % Immature Granulocyte % (Auto) 0.3 % Immature Granulocyte # (Auto) 0.02 0.00-0.02 K/uL Polychromasia 1+ Sodium Level 143 136-145 mmol/L Potassium Level 3.1 3.5-5.1 mmol/L Chloride Level 108 98-107 mmol/L Carbon Dioxide Level 28 21-32 mmol/L Anion Gap 7.0 3-11 mmol/L Blood Urea Nitrogen 12 7-18 mg/dl BUN/Creatinine Ratio 11.9 10-20 Random Glucose 121 70-99 mg/dl Lactic Acid Level 1.6 0.4-2.0 mmol/L Calcium Level 8.1 8.5-10.1 mg/dl Magnesium Level 1.9 1.8-2.4 mg/dl Thyroid Stimulating Hormone (TSH) 0.775 0.300-4.500 uIu/ml
[2016-07-05 17:37] LABS: HEMATOCRIT 26.8 % (42-52)
[2016-07-05] MEDS: BIMATOPROST 0.01% OP SOLN 2.5 ML BTL OPB SCH (21:04)
[2016-07-05] MEDS: TRAZODONE HCL 100 MG TAB PO SCH (21:06)
[2016-07-05] MEDS: DONEPEZIL HCL 5 MG TAB PO SCH (21:06)
[2016-07-06] MEDS: VANCOMYCIN INJ 1,500 MG in SODIUM CHLORIDE 0.9% 500ML 500 ML IV SCH (04:04)
[2016-07-06] MEDS: PIPERACILL/TAZOBAC IV 4.5 GM in DEXTROSE 5% 100ML IV SCH ×3 (05:38→21:31)
[2016-07-06] MEDS: LEVOTHYROXINE 25 MCG TAB PO SCH (06:34)
[2016-07-06 07:33] VITALS: BP 173/76; PULSE 67; TEMP 36.9; O2SAT 97
[2016-07-06] MEDS: DOCUSATE SODIUM 100 MG CAP PO SCH ×2 (07:50→21:22)
[2016-07-06] MEDS: LOSARTAN POTASSIUM 50 MG TAB PO SCH (07:51)
[2016-07-06] MEDS: DULOXETINE HCL 60 MG CAP PO SCH (07:52)
[2016-07-06] MEDS: TAMSULOSIN HCL 0.4 MG CAP PO SCH ×2 (07:52→21:23)
[2016-07-06] MEDS: ASPIRIN 81 MG ECTAB PO SCH (07:52)
[2016-07-06] MEDS: GABAPENTIN 600 MG TAB PO SCH ×3 (07:53→21:23)
[2016-07-06] MEDS: OMEGA-3 (PURIFIED FISH OIL) 1 GM CAP PO SCH (07:53)
[2016-07-06] MEDS: LACTOBACILLUS ACIDOPHILUS (FLORANEX) TAB PO SCH ×2 (07:53→21:23)
[2016-07-06] MEDS: FINASTERIDE 5 MG TAB PO SCH (07:54)
[2016-07-06] MEDS: PANTOprazole SOD 40 MG TAB PO SCH (07:54)
[2016-07-06] MEDS: CYANOCOBALAMIN 500 MCG TAB (VIT B-12) PO SCH (07:55)
[2016-07-06] MEDS: CHOLECALCIFEROL 1000 INTER.UNIT TAB PO SCH (07:55)
[2016-07-06 08:19] LABS: URINE APPEARANCE CLEAR (CLEAR); URINE BILIRUBIN NEG (NEG); URINE COLOR YELLOW; URINE NITRITE NEG (NEG); URINE PH 6.5 (4.5-7.5); URINE SPECIFIC GRAVITY 1.011 (1.000-1.030); UROBILINOGEN NEG (NEG); ZZUR CULT IF INDIC CLEAN CATCH NO
[2016-07-06 08:21] LABS: MANUAL MICROSCOPIC REQUIRED? NO; REVIEW REQ? NO
[2016-07-06 08:34] LABS: CREATININE 0.85 mg/dl (0.60-1.40)
[2016-07-06 08:41] LABS: BASO % 0.2 %; BASO ABS # 0.01 K/uL (0-0.2); EOS % 8.8 %; HEMATOCRIT 25.6 % (42-52); IG% 0.2 %; LYMPH % 26.2 %; LYMPH ABS # 1.37 K/uL (1.2-3.4); MEAN CORPUSCULAR HEMOGLOBIN 25.6 pg (25-34); MEAN CORPUSCULAR HGB CONC 32.4 g/dl (32-36); MEAN PLATELET VOLUME 9.9 fL (7.4-10.4); MONO % 7.6 %; PLATELET COUNT 183 K/uL (130-400); RED BLOOD COUNT 3.24 M/uL (4.7-6.1); WHITE BLOOD COUNT 5.23 K/uL (4.8-10.8)
[2016-07-06 08:49] LABS: BUN/CREATININE RATIO 9.3 (10-20); CREATININE 0.83 mg/dl (0.60-1.40); MAGNESIUM 1.8 mg/dl (1.8-2.4); POTASSIUM 3.2 mmol/L (3.5-5.1)
[2016-07-06] MEDS: METHADONE HCL 10 MG TAB PO SCH (09:16)
[2016-07-06 09:53] LABS: COMPLETE YES; GIANT PLATELETS 1+; MICROCYTOSIS PRESENT
[2016-07-06] MEDS: SODIUM CHLORIDE 0.9% 1000ML 1,000 ML IV SCH (11:16)
[2016-07-06] MEDS ORDERED: POTASSIUM CHLORIDE 10 MEQ TABCR PO STA (11:32)
[2016-07-06 12:45] VITALS: BP 159/81; PULSE 88
[2016-07-06 16:00] VITALS: O2SAT 97
--- NOTE | 2016-07-06 17:49 | Progress Note ---
Internal Med Progress Note Date of Service: Jul 06, 2016. Provider Documentation: SUBJECTIVE: Resting comfortably participating in PT denies any blood in stools afebrile denies any pain eating ok OBJECTIVE: Vital Signs-as noted below Exam: General-alert and awake. Not in distress ENT-normal hearing Neck-no neck masses Lungs-cta b/l no wheezing or crackles Heart-s1 and s2 heard, regular rate and rhythm no murmurs Abdomen-soft bowel sounds present non tender no distension Extremities- no erythema Neuro-alert and awake moves extremities Lab data as noted below. ASSESSMENT & PLAN: SEPSIS SECONDARY TO BILATERAL PNEUMONIA pt presented with AMS. tachy and hypoxic on arrival -lactic acid 3.3 on presentation which trending now cxr bibasilar infiltrates ct head unremarkable hemodynamics stable currently on iv zosyn and iv vancomycin improving stopped fluids mrsa swab negative and stopped vancomycin will change to po abx in 1-2 days ALTERED MENTAL STATUS Most likely secondary to above CT head negative improving will monitor Delirium haldol prn will monitor RECENT GI BLEED admitted for rectal bleed 1 month ago requiring transfusion was transferred to [place] [facility] 10.7 to 8.5 no signs of bleeding hemodilution? hb 8.3 today will check stool for Hemoccult no signs of bleeding will monitor H/O CVA s/p CVA 1996; has residual R sided paresthesias and chronic nerve pain On ASA CHRONIC PAIN SYNDROME since s/p CVA 1996 On methadone and gabapentin HYPOTHYROIDISM On levothyroxine DEPRESSION stable on Aricept and Cymbalta DVT PROPHYLAXIS SCDs only in setting of recent GI bleed CODE STATUS FULL CODE status per [facility] documents and conversation during previous admission DISPO to be determined pt/ot prior to discharge social service to help with discharge planning Vital Signs: Date Time Temp Pulse Resp B/P Pulse Ox O2 Delivery O2 Flow Rate FiO2 07/06/16 12:45 88 159/81 07/06/16 08:00 Room Air 07/06/16 07:33 36.9 67 16 173/76 97 Room Air 07/06/16 00:00 Room Air 07/05/16 23:22 36.6 68 16 176/84 96 Room Air 07/05/16 20:13 36.5 69 18 164/83 97 Room Air 07/05/16 20:00 Room Air Lab Results: Results Past 24 Hours Test 07/06/16 07:30 07/06/16 07:38 Range/Units Urine Color YELLOW Urine Appearance CLEAR CLEAR Urine pH 6.5 4.5-7.5 Urine Specific [place] 1.011 1.000-1.030 Urine Protein NEG NEG Urine Glucose (UA) NEG NEG Urine Ketones NEG NEG Urine Occult Blood NEG NEG Urine Nitrite NEG NEG Urine Bilirubin NEG NEG Urine Urobilinogen NEG NEG Urine Leukocyte Esterase NEG NEG White Blood Count 5.23 4.8-10.8 K/uL Red Blood Count 3.24 4.7-6.1 M/uL Hemoglobin 8.3 14.0-18.0 g/dL Hematocrit 25.6 42-52 % Mean Corpuscular Volume 79.0 80-100 fL Mean Corpuscular Hemoglobin 25.6 25-34 pg Mean Corpuscular Hemoglobin Concent 32.4 32-36 g/dl Platelet Count 183 130-400 K/uL Mean Platelet Volume 9.9 7.4-10.4 fL Neutrophils (%) (Auto) 57.0 % Lymphocytes (%) (Auto) 26.2 % Monocytes (%) (Auto) 7.6 % Eosinophils (%) (Auto) 8.8 % Basophils (%) (Auto) 0.2 % Neutrophils # (Auto) 2.98 1.4-6.5 K/uL Lymphocytes # (Auto) 1.37 1.2-3.4 K/uL Monocytes # (Auto) 0.40 0.11-0.59 K/uL Eosinophils # (Auto) 0.46 0-0.5 K/uL Basophils # (Auto) 0.01 0-0.2 K/uL RDW Standard Deviation 45.8 36.4-46.3 fL RDW Coefficient of Variation 15.5 11.5-14.5 % Immature Granulocyte % (Auto) 0.2 % Immature Granulocyte # (Auto) 0.01 0.00-0.02 K/uL Giant Platelets 1+ Microcytosis PRESENT Sodium Level 146 136-145 mmol/L Potassium Level 3.2 3.5-5.1 mmol/L Chloride Level 111 98-107 mmol/L Carbon Dioxide Level 27 21-32 mmol/L Anion Gap 8.0 3-11 mmol/L Blood Urea Nitrogen 8 7-18 mg/dl Creatinine 0.83 0.60-1.40 mg/dl Est Creatinine Clear Calc Drug Dose 102.3 ml/min Estimated GFR () 99.8 Estimated GFR (Non- 86.1 BUN/Creatinine Ratio 9.3 10-20 Random Glucose 74 70-99 mg/dl Calcium Level 8.0 8.5-10.1 mg/dl Magnesium Level 1.8 1.8-2.4 mg/dl
[2016-07-06] MEDS: BIMATOPROST 0.01% OP SOLN 2.5 ML BTL OPB SCH (21:22)
[2016-07-06] MEDS: TRAZODONE HCL 100 MG TAB PO SCH (21:23)
[2016-07-06] MEDS: DONEPEZIL HCL 5 MG TAB PO SCH (21:23)
[2016-07-07] VITALS: BP 146/71; PULSE 66; TEMP 36.5; O2SAT 96
[2016-07-07] MEDS: PIPERACILL/TAZOBAC IV 4.5 GM in DEXTROSE 5% 100ML IV SCH ×3 (06:00→22:03)
[2016-07-07] MEDS: LEVOTHYROXINE 50 MCG TAB PO SCH (06:01)
[2016-07-07 06:32] LABS: BASO % 0.2 %; BASO ABS # 0.01 K/uL (0-0.2); EOS % 5.5 %; HEMATOCRIT 26.9 % (42-52); IG% 0.3 %; LYMPH % 25.5 %; LYMPH ABS # 1.53 K/uL (1.2-3.4); MEAN CELL VOLUME 78.7 fL (80-100); MEAN CORPUSCULAR HEMOGLOBIN 25.4 pg (25-34); MEAN CORPUSCULAR HGB CONC 32.3 g/dl (32-36); MEAN PLATELET VOLUME 9.8 fL (7.4-10.4); MONO % 9.2 %; NEUT % 59.3 %; PLATELET COUNT 194 K/uL (130-400); RED BLOOD COUNT 3.42 M/uL (4.7-6.1); WHITE BLOOD COUNT 5.99 K/uL (4.8-10.8)
[2016-07-07 06:54] LABS: CREATININE 1.1 mg/dl (0.60-1.40); POTASSIUM 3.3 mmol/L (3.5-5.1)
[2016-07-07 07:05] LABS: COMPLETE YES; MICROCYTOSIS PRESENT
[2016-07-07 07:50] VITALS: BP 164/93; PULSE 64; TEMP 36.5; O2SAT 98
--- NOTE | 2016-07-07 08:29 | DIAGNOSTIC IMAGING REPORT ---
SINGLE VIEW CHEST CLINICAL HISTORY: Follow-up airspace consolidation. FINDINGS: An AP, portable, upright chest radiograph is compared to study dated 07/03/2016 and correlated with chest CT dated 06/15/15. The examination is degraded by portable technique and patient rotation. The heart is mildly enlarged and there is atherosclerotic calcification with uncoiling of the thoracic aorta. The pulmonary vasculature is noncongested. Chronic interstitial thickening is similar to previous and there is bibasilar atelectasis. There are bibasilar patchy airspace opacities. No large pleural effusion or pneumothorax is seen. The skeletal structures are osteopenic. The bony thorax is grossly intact. Degenerative change is noted in the thoracic spine. IMPRESSION: 1. Again seen are bibasilar airspace opacities. This could represent atelectasis versus an infectious/inflammatory pneumonitis. 2. Cardiac enlargement. There is no radiographic evidence of congestive failure. Electronically signed by: Raoul Covington M.D. 07/07/2016 8:28 AM Dictated Date/Time: 07/07/2016 8:26 AM
[2016-07-07] MEDS: DOCUSATE SODIUM 100 MG CAP PO SCH ×2 (08:48→20:46)
[2016-07-07] MEDS: LOSARTAN POTASSIUM 50 MG TAB PO SCH (08:49)
[2016-07-07] MEDS: DULOXETINE HCL 60 MG CAP PO SCH (08:49)
[2016-07-07] MEDS: ASPIRIN 81 MG ECTAB PO SCH (08:49)
[2016-07-07] MEDS: TAMSULOSIN HCL 0.4 MG CAP PO SCH ×2 (08:49→20:46)
[2016-07-07] MEDS: GABAPENTIN 600 MG TAB PO SCH ×3 (08:50→20:48)
[2016-07-07] MEDS: LACTOBACILLUS ACIDOPHILUS (FLORANEX) TAB PO SCH ×2 (08:50→20:49)
[2016-07-07] MEDS: OMEGA-3 (PURIFIED FISH OIL) 1 GM CAP PO SCH (08:51)
[2016-07-07] MEDS: FINASTERIDE 5 MG TAB PO SCH (08:51)
[2016-07-07] MEDS: CYANOCOBALAMIN 500 MCG TAB (VIT B-12) PO SCH (08:51)
[2016-07-07] MEDS: CHOLECALCIFEROL 1000 INTER.UNIT TAB PO SCH (08:52)
[2016-07-07] MEDS: PANTOprazole SOD 40 MG TAB PO SCH (08:52)
[2016-07-07] MEDS: METHADONE HCL 10 MG TAB PO SCH ×2 (08:55→20:47)
[2016-07-07] MEDS ORDERED: POTASSIUM CHLORIDE 20 MEQ TABCR PO ONE (09:00)
[2016-07-07 15:26] VITALS: BP 138/72; PULSE 85; TEMP 36.5; O2SAT 90
[2016-07-07] MEDS ORDERED: HYDROCHLOROTHIAZIDE 25 MG TAB PO STA (16:18)
--- NOTE | 2016-07-07 18:11 | Progress Note ---
Internal Med Progress Note Date of Service: Jul 07, 2016. Provider Documentation: SUBJECTIVE: Resting comfortably denies any sob has some cough afebrile awaiting to be discharged OBJECTIVE: Vital Signs-as noted below Exam: General-alert and awake. Not in distress ENT-normal hearing Neck-no neck masses Lungs-cta b/l no wheezing or crackles Heart-s1 and s2 heard, regular rate and rhythm no murmurs Abdomen-soft bowel sounds present non tender no distension Extremities- no erythema pedal edema present Neuro-alert and awake moves extremities Lab data as noted below. ASSESSMENT & PLAN: SEPSIS SECONDARY TO BILATERAL PNEUMONIA pt presented with AMS. tachy and hypoxic on arrival -lactic acid 3.3 on presentation which trending down now cxr bibasilar infiltrates ct head unremarkable hemodynamics stable currently on iv Zosyn and iv vancomycin improving stopped fluids mrsa swab negative and stopped vancomycin will change to po abx in 1-2 days stable ALTERED MENTAL STATUS Most likely secondary to above CT head negative improving stable Delirium haldol prn will monitor RECENT GI BLEED admitted for rectal bleed 1 month ago requiring transfusion was transferred to [place] [facility] 10.7 to 8.7 will check stool for Hemoccult no signs of bleeding will monitor H/O CVA s/p CVA 1996; has residual R sided paresthesias and chronic nerve pain On ASA CHRONIC PAIN SYNDROME since s/p CVA 1996 On methadone and gabapentin HYPOTHYROIDISM On levothyroxine DEPRESSION stable on Aricept and Cymbalta DVT PROPHYLAXIS SCDs only in setting of recent GI bleed CODE STATUS FULL CODE status per [facility] documents and conversation during previous admission DISPO to be determined pt/ot prior to discharge social service to help with discharge planning possible d/c on Saturday Vital Signs: Date Time Temp Pulse Resp B/P Pulse Ox O2 Delivery O2 Flow Rate FiO2 07/07/16 16:00 Room Air 07/07/16 15:26 36.5 85 16 138/72 90 07/07/16 12:00 Room Air 07/07/16 08:00 Room Air 07/07/16 07:50 36.5 64 20 164/93 98 07/07/16 00:00 36.5 66 20 146/71 96 Room Air 07/07/16 00:00 Room Air Lab Results: Results Past 24 Hours Test 07/07/16 06:02 Range/Units White Blood Count 5.99 4.8-10.8 K/uL Red Blood Count 3.42 4.7-6.1 M/uL Hemoglobin 8.7 14.0-18.0 g/dL Hematocrit 26.9 42-52 % Mean Corpuscular Volume 78.7 80-100 fL Mean Corpuscular Hemoglobin 25.4 25-34 pg Mean Corpuscular Hemoglobin Concent 32.3 32-36 g/dl Platelet Count 194 130-400 K/uL Mean Platelet Volume 9.8 7.4-10.4 fL Neutrophils (%) (Auto) 59.3 % Lymphocytes (%) (Auto) 25.5 % Monocytes (%) (Auto) 9.2 % Eosinophils (%) (Auto) 5.5 % Basophils (%) (Auto) 0.2 % Neutrophils # (Auto) 3.55 1.4-6.5 K/uL Lymphocytes # (Auto) 1.53 1.2-3.4 K/uL Monocytes # (Auto) 0.55 0.11-0.59 K/uL Eosinophils # (Auto) 0.33 0-0.5 K/uL Basophils # (Auto) 0.01 0-0.2 K/uL RDW Standard Deviation 43.9 36.4-46.3 fL RDW Coefficient of Variation 15.3 11.5-14.5 % Immature Granulocyte % (Auto) 0.3 % Immature Granulocyte # (Auto) 0.02 0.00-0.02 K/uL Microcytosis PRESENT Sodium Level 146 136-145 mmol/L Potassium Level 3.3 3.5-5.1 mmol/L Chloride Level 110 98-107 mmol/L Carbon Dioxide Level 28 21-32 mmol/L Anion Gap 8.0 3-11 mmol/L Blood Urea Nitrogen 7 7-18 mg/dl Creatinine 1.10 0.60-1.40 mg/dl Est Creatinine Clear Calc Drug Dose 77.2 ml/min Estimated GFR () 75.7 Estimated GFR (Non- 65.3 BUN/Creatinine Ratio 6.0 10-20 Random Glucose 89 70-99 mg/dl Calcium Level 8.0 8.5-10.1 mg/dl Magnesium Level 2.0 1.8-2.4 mg/dl
[2016-07-07] MEDS: BIMATOPROST 0.01% OP SOLN 2.5 ML BTL OPB SCH (20:45)
[2016-07-07] MEDS: DONEPEZIL HCL 5 MG TAB PO SCH (20:46)
[2016-07-07] MEDS: TRAZODONE HCL 100 MG TAB PO SCH (20:48)
[2016-07-07 23:47] VITALS: BP 147/71; PULSE 71; TEMP 36.8; O2SAT 94
[2016-07-08 05:57] LABS: BASO % 0.3 %; BASO ABS # 0.02 K/uL (0-0.2); COMPLETE YES; EOS % 5.1 %; HEMATOCRIT 28.7 % (42-52); IG% 1.1 %; LYMPH % 23.9 %; LYMPH ABS # 1.54 K/uL (1.2-3.4); MEAN CELL VOLUME 78.4 fL (80-100); MEAN CORPUSCULAR HGB CONC 33.1 g/dl (32-36); MEAN PLATELET VOLUME 9.6 fL (7.4-10.4); MONO % 7.8 %; NEUT % 61.8 %; PLATELET COUNT 206 K/uL (130-400); RED BLOOD COUNT 3.66 M/uL (4.7-6.1); WHITE BLOOD COUNT 6.45 K/uL (4.8-10.8)
[2016-07-08] MEDS: PIPERACILL/TAZOBAC IV 4.5 GM in DEXTROSE 5% 100ML IV SCH (06:01)
[2016-07-08] MEDS: LEVOTHYROXINE 50 MCG TAB PO SCH (06:02)
[2016-07-08 06:29] LABS: BUN/CREATININE RATIO 5.3 (10-20); CALCIUM 8.4 mg/dl (8.5-10.1); MAGNESIUM 1.8 mg/dl (1.8-2.4); POTASSIUM 3.3 mmol/L (3.5-5.1)
[2016-07-08 07:58] VITALS: BP 162/79; PULSE 93; TEMP 36.6; O2SAT 93
[2016-07-08] MEDS ORDERED: POTASSIUM CHLORIDE 20 MEQ TABCR PO ONE (08:30)
[2016-07-08] MEDS: ASPIRIN 81 MG ECTAB PO SCH (08:44)
[2016-07-08] MEDS: CYANOCOBALAMIN 500 MCG TAB (VIT B-12) PO SCH (08:44)
[2016-07-08] MEDS: FINASTERIDE 5 MG TAB PO SCH (08:44)
[2016-07-08] MEDS: LACTOBACILLUS ACIDOPHILUS (FLORANEX) TAB PO SCH ×2 (08:45→17:22)
[2016-07-08] MEDS: PANTOprazole SOD 40 MG TAB PO SCH (08:45)
[2016-07-08] MEDS: DOCUSATE SODIUM 100 MG CAP PO SCH ×2 (08:45→20:43)
[2016-07-08] MEDS: LOSARTAN POTASSIUM 50 MG TAB PO SCH (08:45)
[2016-07-08] MEDS: HYDROCHLOROTHIAZIDE 25 MG TAB PO SCH (08:46)
[2016-07-08] MEDS: CHOLECALCIFEROL 1000 INTER.UNIT TAB PO SCH (08:46)
[2016-07-08] MEDS: DULOXETINE HCL 60 MG CAP PO SCH (08:46)
[2016-07-08] MEDS: GABAPENTIN 600 MG TAB PO SCH ×3 (08:46→20:44)
[2016-07-08] MEDS: TAMSULOSIN HCL 0.4 MG CAP PO SCH ×2 (08:47→20:45)
[2016-07-08] MEDS: OMEGA-3 (PURIFIED FISH OIL) 1 GM CAP PO SCH (08:47)
[2016-07-08] MEDS: METHADONE HCL 10 MG TAB PO SCH ×2 (08:51→20:44)
[2016-07-08] MEDS: LEVOFLOXACIN 750 MG TAB PO SCH (13:43)
[2016-07-08 15:09] VITALS: BP 146/75; PULSE 80; TEMP 36.6; O2SAT 93
[2016-07-08] MEDS: AMOXICILLIN/CLAVULANATE TAB 875 MG TAB PO SCH (17:06)
[2016-07-08] MEDS ORDERED: IRON SUCROSE INJ 100 MG in SODIUM CHLORIDE 0.9% 100ML 100 ML IV ONE (17:15)
--- NOTE | 2016-07-08 18:20 | Progress Note ---
Internal Med Progress Note Date of Service: Jul 08, 2016. Provider Documentation: SUBJECTIVE: Resting comfortably in the room afebrile denies any pain waiting to be discharged tomorrow OBJECTIVE: Vital Signs-as noted below Exam: General-alert and awake. Not in distress ENT-normal hearing Neck-no neck masses Lungs-cta b/l no wheezing or crackles Heart-s1 and s2 heard, regular rate and rhythm no murmurs Abdomen-soft bowel sounds present non tender no distension Extremities- no erythema pedal edema present Neuro-alert and awake moves extremities Lab data as noted below. ASSESSMENT & PLAN: SEPSIS SECONDARY TO BILATERAL PNEUMONIA pt presented with AMS. tachy and hypoxic on arrival -lactic acid 3.3 on presentation which trending down now cxr bibasilar infiltrates ct head unremarkable hemodynamics stable currently on iv Zosyn and iv vancomycin improving stopped fluids mrsa swab negative and stopped vancomycin Changed to po abx today stable ALTERED MENTAL STATUS Most likely secondary to above CT head negative improving stable Delirium haldol prn will monitor stable RECENT GI BLEED admitted for rectal bleed 1 month ago requiring transfusion was transferred to [place] [facility] 10.7 to 8.7 hb 9.5 today no signs of bleeding iv venofer will monitor H/O CVA s/p CVA 1996; has residual R sided paresthesias and chronic nerve pain On ASA CHRONIC PAIN SYNDROME since s/p CVA 1996 On methadone and gabapentin HYPOTHYROIDISM On levothyroxine DEPRESSION stable on Aricept and Cymbalta DVT PROPHYLAXIS SCDs only in setting of recent GI bleed CODE STATUS FULL CODE status per [facility] documents and conversation during previous admission DISPO pt/ot prior to discharge social service to help with discharge planning possible d/c on Saturday Vital Signs: Date Time Temp Pulse Resp B/P Pulse Ox O2 Delivery O2 Flow Rate FiO2 07/08/16 16:00 Room Air 07/08/16 15:09 36.6 80 16 146/75 93 07/08/16 08:00 Room Air 07/08/16 07:58 36.6 93 16 162/79 93 Room Air 07/08/16 00:00 Room Air 07/07/16 23:47 36.8 71 20 147/71 94 Room Air Lab Results: Results Past 24 Hours Test 07/08/16 05:20 Range/Units White Blood Count 6.45 4.8-10.8 K/uL Red Blood Count 3.66 4.7-6.1 M/uL Hemoglobin 9.5 14.0-18.0 g/dL Hematocrit 28.7 42-52 % Mean Corpuscular Volume 78.4 80-100 fL Mean Corpuscular Hemoglobin 26.0 25-34 pg Mean Corpuscular Hemoglobin Concent 33.1 32-36 g/dl Platelet Count 206 130-400 K/uL Mean Platelet Volume 9.6 7.4-10.4 fL Neutrophils (%) (Auto) 61.8 % Lymphocytes (%) (Auto) 23.9 % Monocytes (%) (Auto) 7.8 % Eosinophils (%) (Auto) 5.1 % Basophils (%) (Auto) 0.3 % Neutrophils # (Auto) 3.99 1.4-6.5 K/uL Lymphocytes # (Auto) 1.54 1.2-3.4 K/uL Monocytes # (Auto) 0.50 0.11-0.59 K/uL Eosinophils # (Auto) 0.33 0-0.5 K/uL Basophils # (Auto) 0.02 0-0.2 K/uL RDW Standard Deviation 43.2 36.4-46.3 fL RDW Coefficient of Variation 15.0 11.5-14.5 % Immature Granulocyte % (Auto) 1.1 % Immature Granulocyte # (Auto) 0.07 0.00-0.02 K/uL Sodium Level 144 136-145 mmol/L Potassium Level 3.3 3.5-5.1 mmol/L Chloride Level 107 98-107 mmol/L Carbon Dioxide Level 30 21-32 mmol/L Anion Gap 7.0 3-11 mmol/L Blood Urea Nitrogen 5 7-18 mg/dl Creatinine 1.00 0.60-1.40 mg/dl Est Creatinine Clear Calc Drug Dose 84.9 ml/min Estimated GFR () 85.0 Estimated GFR (Non- 73.3 BUN/Creatinine Ratio 5.3 10-20 Random Glucose 73 70-99 mg/dl Calcium Level 8.4 8.5-10.1 mg/dl Magnesium Level 1.8 1.8-2.4 mg/dl
[2016-07-08] MEDS: BIMATOPROST 0.01% OP SOLN 2.5 ML BTL OPB SCH (20:42)
[2016-07-08] MEDS: DONEPEZIL HCL 5 MG TAB PO SCH (20:43)
[2016-07-08] MEDS: TRAZODONE HCL 100 MG TAB PO SCH (20:44)
[2016-07-09 00:06] VITALS: BP 132/84
[2016-07-09 06:14] LABS: BASO % 0.1 %; BASO ABS # 0.01 K/uL (0-0.2); COMPLETE YES; HEMATOCRIT 29.7 % (42-52); IG% 2.6 %; LYMPH % 23.7 %; LYMPH ABS # 1.66 K/uL (1.2-3.4); MEAN CELL VOLUME 78.6 fL (80-100); MEAN CORPUSCULAR HEMOGLOBIN 25.1 pg (25-34); MONO % 8.6 %; PLATELET COUNT 210 K/uL (130-400); RED BLOOD COUNT 3.78 M/uL (4.7-6.1); WHITE BLOOD COUNT 6.99 K/uL (4.8-10.8)
[2016-07-09] MEDS: LEVOTHYROXINE 25 MCG TAB PO SCH (06:17)
[2016-07-09 06:38] LABS: BUN/CREATININE RATIO 6.2 (10-20); CALCIUM 8.7 mg/dl (8.5-10.1); CREATININE 0.95 mg/dl (0.60-1.40); MAGNESIUM 1.9 mg/dl (1.8-2.4); POTASSIUM 3.5 mmol/L (3.5-5.1)
[2016-07-09 07:20] VITALS: BP 175/90; PULSE 80; TEMP 36.5; O2SAT 94
[2016-07-09] MEDS: AMOXICILLIN/CLAVULANATE TAB 875 MG TAB PO SCH ×2 (07:58→16:49)
[2016-07-09] MEDS: DULOXETINE HCL 60 MG CAP PO SCH (07:59)
[2016-07-09] MEDS: METHADONE HCL 10 MG TAB PO SCH ×2 (07:59→21:39)
[2016-07-09] MEDS: DOCUSATE SODIUM 100 MG CAP PO SCH ×2 (07:59→21:00)
[2016-07-09] MEDS: ASPIRIN 81 MG ECTAB PO SCH (07:59)
[2016-07-09] MEDS: LOSARTAN POTASSIUM 50 MG TAB PO SCH (07:59)
[2016-07-09] MEDS: LACTOBACILLUS ACIDOPHILUS (FLORANEX) TAB PO SCH ×3 (07:59→16:49)
[2016-07-09] MEDS: TAMSULOSIN HCL 0.4 MG CAP PO SCH ×2 (07:59→21:39)
[2016-07-09] MEDS: CHOLECALCIFEROL 1000 INTER.UNIT TAB PO SCH (08:00)
[2016-07-09] MEDS: HYDROCHLOROTHIAZIDE 25 MG TAB PO SCH (08:00)
[2016-07-09] MEDS: FINASTERIDE 5 MG TAB PO SCH (08:00)
[2016-07-09] MEDS: GABAPENTIN 600 MG TAB PO SCH ×3 (08:00→21:39)
[2016-07-09] MEDS: OMEGA-3 (PURIFIED FISH OIL) 1 GM CAP PO SCH (08:00)
[2016-07-09] MEDS: PANTOprazole SOD 40 MG TAB PO SCH (08:00)
[2016-07-09] MEDS: CYANOCOBALAMIN 500 MCG TAB (VIT B-12) PO SCH (08:00)
[2016-07-09] MEDS ORDERED: IRON SUCROSE INJ 100 MG in SODIUM CHLORIDE 0.9% 100ML 100 ML IV SCH (09:00)
[2016-07-09] MEDS: LEVOFLOXACIN 750 MG TAB PO SCH (11:26)
[2016-07-09 13:52] VITALS: BP 175/90; PULSE 80; O2SAT 94
[2016-07-09 15:22] VITALS: BP_SYST 108; BP_SYST 117; BP_DIAS 71; BP_DIAS 73; PULSE 80; PULSE 82; TEMP 36.4; TEMP 36.5; O2SAT 91; O2SAT 93
[2016-07-09 16:00] VITALS: O2SAT 91
--- NOTE | 2016-07-09 17:25 | Progress Note ---
Internal Med Progress Note Date of Service: Jul 09, 2016. Provider Documentation: SUBJECTIVE: Resting comfortably eating ok no sob no abdominal pain OBJECTIVE: Vital Signs-as noted below Exam: General-alert and awake. Not in distress ENT-normal hearing Neck-no neck masses Lungs-cta b/l no wheezing or crackles Heart-s1 and s2 heard, regular rate and rhythm no murmurs Abdomen-soft bowel sounds present non tender no distension Extremities- no erythema pedal edema present Neuro-alert and awake moves extremities Lab data as noted below. ASSESSMENT & PLAN: SEPSIS SECONDARY TO BILATERAL PNEUMONIA pt presented with AMS. tachy and hypoxic on arrival -lactic acid 3.3 on presentation which trending down now cxr bibasilar infiltrates ct head unremarkable hemodynamics stable currently on iv Zosyn and iv vancomycin improving stopped fluids mrsa swab negative and stopped vancomycin Changed to po abx Levaquin and Augmentin to complete total 10day course stable ALTERED MENTAL STATUS Most likely secondary to above CT head negative improving stable Delirium haldol prn will monitor stable RECENT GI BLEED admitted for rectal bleed 1 month ago requiring transfusion was transferred to [place] [facility] 10.7 to 8.7 hb 9.5 today no signs of bleeding received iv venofer will monitor H/O CVA s/p CVA 1996; has residual R sided paresthesias and chronic nerve pain On ASA CHRONIC PAIN SYNDROME since s/p CVA 1996 On methadone and gabapentin HYPOTHYROIDISM On levothyroxine DEPRESSION stable on Aricept and Cymbalta DVT PROPHYLAXIS SCDs only in setting of recent GI bleed CODE STATUS FULL CODE status per [facility] documents and conversation during previous admission DISPO pt/ot social service to help with discharge planning possible d/c in am Vital Signs: Date Time Temp Pulse Resp B/P Pulse Ox O2 Delivery O2 Flow Rate FiO2 07/09/16 15:22 36.5 80 18 117/73 91 07/09/16 13:52 80 94 07/09/16 08:00 Room Air 07/09/16 07:20 36.5 80 16 175/90 94 07/09/16 00:06 132/84 07/09/16 00:06 Room Air Lab Results: Results Past 24 Hours Test 07/09/16 05:56 Range/Units White Blood Count 6.99 4.8-10.8 K/uL Red Blood Count 3.78 4.7-6.1 M/uL Hemoglobin 9.5 14.0-18.0 g/dL Hematocrit 29.7 42-52 % Mean Corpuscular Volume 78.6 80-100 fL Mean Corpuscular Hemoglobin 25.1 25-34 pg Mean Corpuscular Hemoglobin Concent 32.0 32-36 g/dl Platelet Count 210 130-400 K/uL Mean Platelet Volume 9.0 7.4-10.4 fL Neutrophils (%) (Auto) 61.0 % Lymphocytes (%) (Auto) 23.7 % Monocytes (%) (Auto) 8.6 % Eosinophils (%) (Auto) 4.0 % Basophils (%) (Auto) 0.1 % Neutrophils # (Auto) 4.26 1.4-6.5 K/uL Lymphocytes # (Auto) 1.66 1.2-3.4 K/uL Monocytes # (Auto) 0.60 0.11-0.59 K/uL Eosinophils # (Auto) 0.28 0-0.5 K/uL Basophils # (Auto) 0.01 0-0.2 K/uL RDW Standard Deviation 43.6 36.4-46.3 fL RDW Coefficient of Variation 15.2 11.5-14.5 % Immature Granulocyte % (Auto) 2.6 % Immature Granulocyte # (Auto) 0.18 0.00-0.02 K/uL Sodium Level 144 136-145 mmol/L Potassium Level 3.5 3.5-5.1 mmol/L Chloride Level 105 98-107 mmol/L Carbon Dioxide Level 30 21-32 mmol/L Anion Gap 9.0 3-11 mmol/L Blood Urea Nitrogen 6 7-18 mg/dl Creatinine 0.95 0.60-1.40 mg/dl Est Creatinine Clear Calc Drug Dose 89.4 ml/min Estimated GFR () 90.4 Estimated GFR (Non- 78.0 BUN/Creatinine Ratio 6.2 10-20 Random Glucose 72 70-99 mg/dl Calcium Level 8.7 8.5-10.1 mg/dl Magnesium Level 1.9 1.8-2.4 mg/dl
[2016-07-09] MEDS: BIMATOPROST 0.01% OP SOLN 2.5 ML BTL OPB SCH (21:38)
[2016-07-09] MEDS: TRAZODONE HCL 100 MG TAB PO SCH (21:38)
[2016-07-09] MEDS: DONEPEZIL HCL 5 MG TAB PO SCH (21:38)
[2016-07-09 23:55] VITALS: BP 128/79; PULSE 59; TEMP 36.8; O2SAT 94
[2016-07-10] MEDS: LEVOTHYROXINE 50 MCG TAB PO SCH (05:53)
[2016-07-10] MEDS: LACTOBACILLUS ACIDOPHILUS (FLORANEX) TAB PO SCH ×2 (08:04→11:43)
[2016-07-10] MEDS: AMOXICILLIN/CLAVULANATE TAB 875 MG TAB PO SCH (08:04)
[2016-07-10] MEDS: DOCUSATE SODIUM 100 MG CAP PO SCH (08:04)
[2016-07-10] MEDS: LOSARTAN POTASSIUM 50 MG TAB PO SCH (08:05)
[2016-07-10] MEDS: DULOXETINE HCL 60 MG CAP PO SCH (08:05)
[2016-07-10] MEDS: ASPIRIN 81 MG ECTAB PO SCH (08:05)
[2016-07-10] MEDS: METHADONE HCL 10 MG TAB PO SCH (08:05)
[2016-07-10] MEDS: TAMSULOSIN HCL 0.4 MG CAP PO SCH (08:05)
[2016-07-10] MEDS: OMEGA-3 (PURIFIED FISH OIL) 1 GM CAP PO SCH (08:06)
[2016-07-10] MEDS: PANTOprazole SOD 40 MG TAB PO SCH (08:06)
[2016-07-10] MEDS: FINASTERIDE 5 MG TAB PO SCH (08:06)
[2016-07-10] MEDS: GABAPENTIN 600 MG TAB PO SCH ×2 (08:06→13:03)
[2016-07-10] MEDS: CYANOCOBALAMIN 500 MCG TAB (VIT B-12) PO SCH (08:06)
[2016-07-10] MEDS: HYDROCHLOROTHIAZIDE 25 MG TAB PO SCH (08:06)
[2016-07-10] MEDS: CHOLECALCIFEROL 1000 INTER.UNIT TAB PO SCH (08:06)
[2016-07-10 08:11] VITALS: BP 105/64; PULSE 70; TEMP 36.5; O2SAT 95
[2016-07-10] MEDS: LEVOFLOXACIN 750 MG TAB PO SCH (11:42)
[2016-07-10] MEDS ORDERED: HYZ/10015 PO (12:54)
[2016-07-10] MEDS ORDERED: LCTX PO (12:54)
[2016-07-10] MEDS ORDERED: LEVO750T23 PO (12:54)
--- NOTE | 2016-07-10 12:56 | Discharge Instructions ---
Discharge Instructions Date of Service Jul 10, 2016. Admission Reason for Admission: Pneumonia Discharge Discharge Diagnosis / Problem: pneumonia, sepsis Discharge Goals Goal(s): Decrease discomfort, Improve function Activity Recommendations Activity Level: Assistance Required . Additional Information Patient informed of condition: Yes Advance Directives: Yes DNR: No Level of Care: Skilled Communicable Disease: No Prognosis: Stable Concepcion Catheter: No Instructions / Follow-Up Instructions / Follow-Up FOLLOWUP WITH FAMILY DOCTOR ON July AT 9:50AM LAB : BMP AND CBC IN 5-7 DAYS AND FOLLOW RESULTS WITH FAMILY DOCTOR. Current Hospital Diet Patient's current hospital diet: Regular Diet, Low Sodium Diet (2gm Na) Discharge Diet Recommended Diet: AHA Diet (Heart Healthy) Pending Studies Studies pending at discharge: no Physician Orders On Transfer Special Precautions: FALL AND ASPIRATION PRECAUTIONS Vital Signs: EVERY 8HRS Medical Emergencies . Who to Call and When: Medical Emergencies: If at any time you feel your situation is an emergency, please call 911 immediately. . Non-Emergent Contact Non-Emergency issues call your: Primary Care Provider . . "Provider Documentation" section prepared by Oscar Taylor. Core Measure Problem Core Measures: None
[2016-07-10 13:28] VITALS: BP 105/64; PULSE 70; TEMP 36.5; O2SAT 95
--- NOTE | 2016-07-10 14:07 | Progress Note ---
Internal Med Progress Note Date of Service: Jul 10, 2016. Provider Documentation: SUBJECTIVE: Resting comfortably says he woke up and found himself soiled with bowel movement denies any abdominal pain afebrile denies chest pain or sob ok for [facility] today OBJECTIVE: Vital Signs-as noted below Exam: General-alert and awake. Not in distress ENT-normal hearing Neck-no neck masses Lungs-cta b/l no wheezing or crackles Heart-s1 and s2 heard, regular rate and rhythm no murmurs Abdomen-soft bowel sounds present non tender no distension Extremities- no erythema mild pedal edema present Neuro-alert and awake moves extremities Lab data as noted below. ASSESSMENT & PLAN: SEPSIS SECONDARY TO BILATERAL PNEUMONIA pt presented with AMS. tachy and hypoxic on arrival -lactic acid 3.3 on presentation which trending down now cxr bibasilar infiltrates ct head unremarkable hemodynamics stable currently on iv Zosyn and iv vancomycin improving stopped fluids mrsa swab negative and stopped vancomycin Changed to po abx Levaquin and Augmentin to complete total 10day course stable and discharged on po Levaquin ALTERED MENTAL STATUS Most likely secondary to above CT head negative improving stable Delirium haldol prn will monitor stable RECENT GI BLEED admitted for rectal bleed 1 month ago requiring transfusion was transferred to [place] [facility] 10.7 to 8.7 hb 9.5 today no signs of bleeding received iv venofer will monitor f/u labs with pcp H/O CVA s/p CVA 1996; has residual R sided paresthesias and chronic nerve pain On ASA CHRONIC PAIN SYNDROME since s/p CVA 1996 On methadone and gabapentin HYPOTHYROIDISM On levothyroxine DEPRESSION stable on Aricept and Cymbalta Discharged to [facility] Vital Signs: Date Time Temp Pulse Resp B/P Pulse Ox O2 Delivery O2 Flow Rate FiO2 07/10/16 13:28 36.5 70 18 95 Room Air 07/10/16 08:11 36.5 70 18 105/64 95 Room Air 07/10/16 08:00 Room Air 07/10/16 00:00 Room Air 07/09/16 23:55 36.8 59 20 128/79 94 07/09/16 16:00 91 Room Air 07/09/16 15:22 36.5 80 18 117/73 91
--- NOTE | 2016-07-10 14:14 | Discharge Summary ---
Discharge Summary Date of Service Jul 10, 2016. Discharge Summary Admission Date: Jul 03, 2016 at 16:59 Discharge Date: Jul 10, 2016 [facility] Dis[facility] facility Principal Diagnosis: SEPSIS PNEUMONIA Secondary Diagnoses/Problems: (1) Chronic pain syndrome Status: Chronic (2) COPD (chronic obstructive pulmonary disease) Status: Chronic (3) CVA (cerebral infarction) Status: Chronic (4) GI bleed Status: Resolved (5) Hypothyroidism Status: Chronic (6) FELICITA (iron deficiency anemia) Status: Chronic (7) Monoclonal gammopathy Status: Chronic (8) PMR (polymyalgia rheumatica) Status: Chronic (9) Right-sided nerve pain Status: Chronic (10) Right-sided numbness Status: Chronic (11) Sleep apnea Status: Chronic Procedures: CT HEAD: 1. There is no hemorrhage, mass effect, or evidence of acute territorial ischemia by CT criteria. 2. Senescent changes and remote infarct as above. CXR: Bibasilar parenchymal infiltrates. Medication Reconciliation New Medications: Hctz/Losartan (Hyzaar 25MG/100MG) 1 Ea Tab 1 TAB PO DAILY for 90 Days, #90 TAB 3 Refills Levofloxacin (Levaquin) 750 Mg Tab 1 TAB PO DAILY for 3 Days, #3 TAB Lactobacillus Acidophilus (Floranex) 1 Tab Tab 4 TAB PO TIDM for 10 Days, TAB Continued Medications: Aspirin (Aspirin Ec) 81 Mg Tab 81 MG PO DAILY Bimatoprost (Lumigan) 0.01 % Ro 1 DROPS OPB HS for 30 Days, #2.5 ML 3 Refills Cholecalciferol (Vitamin D3) 2,000 Unit Tab 2000 UNITS PO DAILY Cyanocobalamin (Vitamin B-12 1000 Mcg) 1,000 Mcg Tab 1000 MCG PO QAM, TAB Docusate Sodium (Colace) 100 Mg Cap 1 CAP PO BID for 15 Days, #30 CAP Donepezil HCl (Donepezil HCl) 5 Mg Tab 5 MG PO HS Duloxetine Hcl (Cymbalta) 60 Mg Cap 60 MG PO DAILY, CAP Finasteride (Proscar) 5 Mg Tab 5 MG PO DAILY, TAB Fish Oil ([place]-3) 1 Ea Cap 1 CAP PO DAILY, CAP Gabapentin (Neurontin) 300 Mg Cap 600 MG PO TID, CAP Ipratropium-Albuterol (Combivent Respimat) 1 Aer Aer 1 PUFFS INH QID PRN for SOB/Wheezing, INH Levothyroxine Sodium (Levothyroxine Sodium) 25 Mcg Tab 25 MCG PO 3XWK TAKE 25 MCG EVERY SATURDAY,SATURDAY AND SATURDAY. Levothyroxine Sodium (Levothyroxine Sodium) 25 Mcg Tab 50 MCG PO 4XWK, TAB TAKE 50 MCG EVERY SATURDAY,SATURDAY,SATURDAY AND SATURDAY. Methadone Hcl (Dolophine) 10 Mg Tab 40 MG PO QAM Methadone Hcl (Dolophine) 10 Mg Tab 30 MG PO QPM/HS Omeprazole (Prilosec) 20 Mg Cap 20 MG PO DAILY, CAP Prednisone Tab (Prednisone) 10 Mg Tab 10 MG PO DAILY, TAB Tamsulosin Hcl (Flomax) 0.4 Mg Cap 0.4 MG PO BID, CAP Trazodone HCl (Trazodone HCl) 100 Mg Tab 100 MG PO HS Discontinued Medications: Celecoxib (Celebrex) 100 Mg Cap 50 MG PO BID for 30 Days, #30 CAP 3 Refills Lactobacillus (Acidophilus) 1 Cap Cap 1 CAP PO BID Losartan Potassium (Cozaar) 100 Mg Tab 100 MG PO DAILY, TAB Admission Information HPI (per Admitting provider): This is a 75 y/o male with PMHx of CVA with residual R sided paresthesias/pain, Hypothyroidism, HTN and other problems as outlined below who presents to the ED with altered mental status that began this afternoon. History is obtained from at bedside as patient is unable to give clear history due to AMS. reports that she went to visit patient for lunch today around 12:15. Upon her arrival, pt did not appear to recognize her. He was "staring into space" with a dazed look on his face and was unable to respond to questions. Per nursing staff at [facility], patient was at his baseline this morning, went to PT and did well. also adds that patient had a similar episode 2 weeks ago where he had difficulty speaking and holding objects noting that everything fell to the floor. Per , patient has had similar sxs in the past due to infection. After a few days, the sxs resolved and patient was doing very well until this morning. denies any recent falls. Pt has a history of major stroke in 1996 that left his with loss of mobility of his right side. Pt also has a recent history of admission to [facility] from 06/05-06/09 with rectal bleed. Patient was transfused and ultimately transferred to [place] for further evaluation. recalls that patient received another unit of blood in [place] and had a colonoscopy that revealed upper and lower diverticulitis. Patient was discharged to [facility] and has not had any more episodes of bleeding. Unable to obtain ROS due to AMS. In the ED, pt is tachy and hypoxic on arrival. Pt is afebrile with leukocytosis >13k. POC lactic acid >2.05. HgB 10.7. UA negative. CXR + bilateral infiltrates. CT head is negative. Pt will be admitted for further evaluation and treatment. Physical Exam (per Admitting): General Appearance: WD/WN, no apparent distress, + obese, + pertinent finding (Pt is laying in bed sleeping with at bedside) Head: normocephalic, atraumatic Eyes: normal inspection ENT: hearing grossly normal Neck: supple Respiratory/Chest: chest non-tender, no respiratory distress, no accessory muscle use, + pertinent finding (crackles throughout (auscultated anteriorly); no wheezing noted) Cardiovascular: regular rate, rhythm, no edema, no murmur Abdomen/GI: normal bowel sounds, non tender, soft Back: + pertinent finding (did not examine back) Extremities/Musculoskelatal: normal inspection, no calf tenderness, no pedal edema, + pertinent finding (3 healed superficial abrasions noted to anterior aspect RLE) Neurologic/Psych: alert, normal mood/affect, oriented x 3, + pertinent finding (neuro exam difficult to obtain due to AMS) Skin: normal color, warm/dry Hospital Course SEPSIS SECONDARY TO BILATERAL PNEUMONIA pt presented with AMS. tachy and hypoxic on arrival -lactic acid 3.3 on presentation which trending down now cxr bibasilar infiltrates ct head unremarkable hemodynamics stable currently on iv Zosyn and iv vancomycin improving stopped fluids mrsa swab negative and stopped vancomycin Changed to po abx Levaquin and Augmentin to complete total 10day course stable and discharged on po Levaquin ALTERED MENTAL STATUS Most likely secondary to above CT head negative improving stable Delirium haldol prn will monitor stable RECENT GI BLEED admitted for rectal bleed 1 month ago requiring transfusion was transferred to [place] HgB 10.7 to 8.7 hb 9.5 today no signs of bleeding received iv venofer will monitor f/u labs with pcp H/O CVA s/p CVA 1996; has residual R sided paresthesias and chronic nerve pain On ASA CHRONIC PAIN SYNDROME since s/p CVA 1996 On methadone and gabapentin HYPOTHYROIDISM On levothyroxine DEPRESSION stable on Aricept and Cymbalta Discharged to [facility] side Total time spent on discharge = 40MINUTES This includes examination of the patient, discharge planning, medication reconciliation, and communication with other providers. Discharge Instructions Please take this sheet to every appointment for the next month Discharge Instructions Date of Service Jul 10, 2016. Admission Reason for Admission: Pneumonia Discharge Discharge Diagnosis / Problem: pneumonia, sepsis Discharge Goals Goal(s): Decrease discomfort, Improve function Activity Recommendations Activity Level: Assistance Required . Additional Information Patient informed of condition: Yes Advance Directives: Yes DNR: No Level of Care: Skilled Communicable Disease: No Prognosis: Stable Concepcion Catheter: No Instructions / Follow-Up Instructions / Follow-Up FOLLOWUP WITH FAMILY DOCTOR ON July AT 9:50AM Current Hospital Diet Patient's current hospital diet: Regular Diet, Low Sodium Diet (2gm Na) Discharge Diet Recommended Diet: AHA Diet (Heart Healthy) Pending Studies Studies pending at discharge: no Physician Orders On Transfer Special Precautions: FALL AND ASPIRATION PRECAUTIONS Vital Signs: EVERY 8HRS Medical Emergencies . Who to Call and When: Medical Emergencies: If at any time you feel your situation is an emergency, please call 911 immediately. . Non-Emergent Contact Non-Emergency issues call your: Primary Care Provider . . "Provider Documentation" section prepared by Oscar Taylor. Core Measure Problem Core Measures: None
[2016-10-11] MEDS ORDERED: MTH10 PO (08:06)
[2016-10-11] MEDS ORDERED: MELA1TAB5 PO (08:06)
[2016-10-11] MEDS ORDERED: LEVO25TA5 PO (08:06)
[2016-10-11] MEDS ORDERED: MOML PO (08:06)
[2016-10-11] MEDS ORDERED: CLB100 PO (08:06)
[2016-10-11] MEDS ORDERED: DONE1TAB11 PO (08:06)
[2016-10-11] MEDS ORDERED: HYZ/10015 PO (08:06)
[2017-01-08] MEDS ORDERED: TRAZ100T29 PO (07:48)
[2017-01-08] MEDS ORDERED: LACTCAP3 PO (07:48)
[2017-01-08] MEDS ORDERED: TRAV0.00 OP (07:48)
[2017-01-08] MEDS ORDERED: BIMA0.01 OP (07:48)
[2017-01-08] MEDS ORDERED: ACET-1311 PO (07:48)
[2017-01-08] MEDS ORDERED: CYAN10005 PO (07:48)
[2017-01-08] MEDS ORDERED: MULT-506 PO (07:48)
[2017-01-08] MEDS ORDERED: LEVO25TA5 PO (07:48)
[2017-01-08] MEDS ORDERED: MELO15TA4 PO (07:48)
[2017-01-08] MEDS ORDERED: IPRASOL4 INH (07:48)
[2017-01-08] MEDS ORDERED: GABA600T PO (07:48)
[2017-01-08] MEDS ORDERED: BISA10SU3 PR (07:48)
[2017-01-08] MEDS ORDERED: METH10TA2 PO (07:48)
[2017-01-08] MEDS ORDERED: AMLO-114 PO (07:48)
[2017-01-08] MEDS ORDERED: SODIENE PR (07:48)
[2017-01-28] MEDS ORDERED: BROM0.0911 OPR (14:38)
[2017-01-28] MEDS ORDERED: BUME1TAB42 PO (14:40)
[2017-01-28] MEDS ORDERED: POTA10CA28 PO (14:45)
[2017-01-28] MEDS ORDERED: BRIN3SUS OPR (14:49)
[2017-01-28] MEDS ORDERED: CPROT OPR (14:51)
[2017-01-28] MEDS ORDERED: PRED1SUS17 OP (14:51)
[2017-01-31] MEDS ORDERED: LVQ750 PO ×2 (10:45→10:58)
== END 2016-07-10 15:58 | DRG 871 ==
LOC: ENRESERVTM → ENRESERVDT → EDBD 13:14 → C.EDB 13:16 → C.MED 16:59
PROVIDERS: ADMIT Family Medicine; ATTEND Internal Medicine
DX: A41.9 Sepsis, unspecified organism (principal); J18.9 Pneumonia, unspecified organism; E03.9 Hypothyroidism, unspecified; G89.4 Chronic pain syndrome; G47.30 Sleep apnea, unspecified; F32.9 Major depressive disorder, single episode, unspecified; I10 Essential (primary) hypertension; R20.0 Anesthesia of skin; J44.9 Chronic obstructive pulmonary disease, unspecified; M35.3 Polymyalgia rheumatica; D50.0 Iron deficiency anemia secondary to blood loss (chronic); D47.2 Monoclonal gammopathy; I69.398 Other sequelae of cerebral infarction; R41.82 Altered mental status, unspecified; R09.02 Hypoxemia; Z87.19 Personal history of other diseases of the digestive system; Z87.891 Personal history of nicotine dependence; Z79.82 Long term (current) use of aspirin; Z79.1 Long term (current) use of non-steroidal anti-inflammatories (NSAID); Z79.891 Long term (current) use of opiate analgesic; Z79.899 Other long term (current) drug therapy; Z79.52 Long term (current) use of systemic steroids

== ENCOUNTER → 2016-07-14 | Outpatient (CLI) | payer BC, OTHER ==
[~2016-07-14] MED LIST changes: +ACET-1311 PO; +AMLO-114 PO; +ASPI81TA28 PO; +BIMA0.01 OP; +BISA10SU3 PR; +BRIN3SUS OPR; +BROM0.0911 OPR; +BUME1TAB42 PO; +CEPH500C2 PO; +CLB100 PO; +CPRDOTS OT; +CPROT OPR; +CYAN10005 PO; +DOCU-94 PO; +DONE1TAB11 PO; +DSY100 PO; +FINA5TAB4 PO; +GABA600T PO; +HYZ/10015 PO; +IPRASOL4 INH; +LCTX PO; +LEVO750T23 PO; +LVQ750 PO; +MELA1TAB5 PO; +MELO15TA4 PO; +MOML PO; +MTH10 PO; +MULT-506 PO; -NF656 TD; -NORT10CA2 PO; -NYST1POW7 TOP; +OMEG10007 PO; +OMEP20CA9 PO; -OXYC-57 PO; +POTA10CA28 PO; -PRED-301 PO; +PRED10TA PO; +PRED1SUS17 OP; +SODIENE PR; +TAMS0.4C38 PO; +TRAV0.00 OP; +TRAZ100T29 PO
== END ==
LOC: C.LABUPNIT 11:20
PROVIDERS: ATTEND Family Medicine
DX: A04.7 Enterocolitis due to Clostridium difficile (principal)

== ENCOUNTER → 2016-07-16 | Outpatient (CLI) | payer BC ==
[2016-07-16 09:00] LABS: HEMATOCRIT 28.7 % (42-52); MEAN CELL VOLUME 80.2 fL (80-100); MEAN CORPUSCULAR HEMOGLOBIN 25.4 pg (25-34); MEAN CORPUSCULAR HGB CONC 31.7 g/dl (32-36); MEAN PLATELET VOLUME 9.9 fL (7.4-10.4); PLATELET COUNT 247 K/uL (130-400); RED BLOOD COUNT 3.58 M/uL (4.7-6.1); WHITE BLOOD COUNT 7.36 K/uL (4.8-10.8)
[2016-07-16 09:08] LABS: BLOOD UREA NITROGEN 14 mg/dl (7-18); BUN/CREATININE RATIO 14.4 (10-20); CALCIUM 8.9 mg/dl (8.5-10.1); CARBON DIOXIDE 32 mmol/L (21-32); CHLORIDE 105 mmol/L (98-107); CREATININE 0.95 mg/dl (0.60-1.40); GLUCOSE 120 mg/dl (70-99); POTASSIUM 3.2 mmol/L (3.5-5.1); SODIUM 145 mmol/L (136-145)
== END ==
LOC: C.LABUPNIT 08:46
PROVIDERS: ATTEND Family Medicine
DX: E87.6 Hypokalemia (principal); D64.9 Anemia, unspecified

== ENCOUNTER → 2016-07-23 | Outpatient (CLI) | payer BC ==
[~2016-07-23] MED LIST changes: +BROM1SOL8 OPR; +LEVO1TAB33 PO; -LEVO750T23 PO
[2016-07-23 09:21] LABS: BLOOD UREA NITROGEN 18 mg/dl (7-18); BUN/CREATININE RATIO 18.3 (10-20); CALCIUM 9.2 mg/dl (8.5-10.1); CARBON DIOXIDE 33 mmol/L (21-32); CHLORIDE 102 mmol/L (98-107); GLUCOSE 82 mg/dl (70-99); POTASSIUM 3.5 mmol/L (3.5-5.1); SODIUM 143 mmol/L (136-145)
== END ==
LOC: C.LABUPNIT 08:11
PROVIDERS: ATTEND Family Medicine
DX: D64.9 Anemia, unspecified (principal)

== ENCOUNTER → 2016-07-25 | Outpatient (CLI) | payer BC ==
[2016-07-25 09:42] LABS: MEAN CELL VOLUME 80.6 fL (80-100); MEAN CORPUSCULAR HEMOGLOBIN 25.1 pg (25-34); MEAN CORPUSCULAR HGB CONC 31.2 g/dl (32-36); MEAN PLATELET VOLUME 11.2 fL (7.4-10.4); PLATELET COUNT 286 K/uL (130-400); RED BLOOD COUNT 4.22 M/uL (4.7-6.1); WHITE BLOOD COUNT 6.57 K/uL (4.8-10.8)
== END ==
LOC: C.LABUPNIT 09:08
PROVIDERS: ATTEND Family Medicine
DX: K92.2 Gastrointestinal hemorrhage, unspecified (principal)

== ENCOUNTER 2016-08-29 20:36 | Observation (INO) | payer BC ==
[~2016-08-29] VITALS: Ht 188 cm; Wt 122.8 kg
[~2016-08-29 20:36] MED LIST changes: -ACET-1311 PO; -AMLO-114 PO; -BIMA0.01 OP; -BISA10SU3 PR; -BRIN3SUS OPR; -BROM0.0911 OPR; -BROM1SOL8 OPR; -BUME1TAB42 PO; -CEPH500C2 PO; -CLB100 PO; -CPRDOTS OT; -CPROT OPR; -CYAN10005 PO; -DONE1TAB11 PO; -GABA600T PO; -IPRASOL4 INH; -LACTCAP3 PO; -LEVO1TAB33 PO; -LVQ750 PO; -MELA1TAB5 PO; -MELO15TA4 PO; -MOML PO; -MTH10 PO; -MULT-506 PO; -POTA10CA28 PO; -PRED1SUS17 OP; -SODIENE PR; -TRAV0.00 OP; -TRAZ100T29 PO
[2016-08-29] MEDS ORDERED: HYZ/10015 PO (21:23)
[2016-08-29] MEDS ORDERED: PRED10TA PO (21:23)
[2016-08-29] MEDS ORDERED: LCTX PO (21:23)
--- NOTE | 2016-08-29 22:30 | EMERGENCY ROOM VISIT NOTE ---
History Report prepared by Marlyn: Aidan Villalpando Under the Supervision of: Dr. Steve Santos D.O. First contact with patient: 22:21 Chief Complaint: KNEEPAIN Stated Complaint: R KNEE PAIN History of Present Illness The patient is a 75 year old male who presents to the Emergency Room with complaints of persistent bilateral knee pain s/p fall earlier tonight. The patient was discharged form [facility] today, where he was staying as he recovered from a left knee surgery performed by Dr. Gray ([facility]). The patient fell today and has had increased bilateral knee pain. The pain is rated 6/10 in severity. The patient ambulates with a walker. The patient has a history of CVA and has had right-sided numbness since. Source of History: patient Onset: tonight Position: knee (bilateral) Symptom Intensity: 6/10 Quality: other (s/p fall) Timing: other (persistent) Review of Systems See HPI for pertinent positives and negatives. A total of ten systems were reviewed and were otherwise negative. Past Medical & Surgical Medical Problems: (1) Chronic pain syndrome (2) COPD (chronic obstructive pulmonary disease) (3) CVA (cerebral infarction) (4) GI bleed (5) Hypothyroidism (6) FELICITA (iron deficiency anemia) (7) Monoclonal gammopathy (8) PMR (polymyalgia rheumatica) (9) Pneumonia (10) Right-sided nerve pain (11) Right-sided numbness (12) Sleep apnea Surgical Problems: (1) H/O esophagogastroduodenoscopy (2) H/O hernia repair (3) S/P cholecystectomy (4) S/P small bowel resection Family History Diabetes mellitus Gallbladder disease Heart disease Hypertension Kidney disease Kidney stones Lung disease Stroke Social History Smoking Status: Former Smoker Alcohol Use: none Drug Use: none Marital Status: Housing Status: lives with family, lives with significant other Occupation Status: retired Current/Historical Medications Scheduled Aspirin (Aspirin Ec), 81 MG PO DAILY Bimatoprost (Lumigan), 1 DROPS OPB HS Cholecalciferol (Vitamin D3), 2,000 UNITS PO DAILY Cyanocobalamin (Vitamin B-12 1000 Mcg), 1,000 MCG PO QAM Donepezil HCl (Donepezil HCl), 5 MG PO HS Duloxetine Hcl (Cymbalta), 60 MG PO DAILY Fish Oil ([place]-3), 1 CAP PO DAILY Gabapentin (Neurontin), 600 MG PO TID Hctz/Losartan (Hyzaar 25MG/100MG), 1 TAB PO QAM Lactobacillus Acidophilus (Lactinex), 1 TAB PO BIDM Levothyroxine Sodium (Levothyroxine Sodium), 25 MCG PO 3XWK Levothyroxine Sodium (Levothyroxine Sodium), 50 MCG PO 4XWK Methadone Hcl (Dolophine), 40 MG PO QAM Methadone Hcl (Dolophine), 30 MG PO QPM/HS Omeprazole (Prilosec), 20 MG PO DAILY Prednisone (Prednisone), 10 MG PO BID Tamsulosin Hcl (Flomax), 0.4 MG PO BID Trazodone HCl (Trazodone HCl), 100 MG PO HS Scheduled PRN Ipratropium-Albuterol (Combivent Respimat), 1 PUFFS INH QID PRN for SOB/Wheezing Allergies Coded Allergies: Iodinated Diagnostic Agents (Verified Allergy, Unknown, HIVES, 08/29/16) Physical Exam Vital Signs Date Time Temp Pulse Resp B/P Pulse Ox O2 Delivery O2 Flow Rate FiO2 08/29/16 23:51 128/62 97 Room Air 08/29/16 23:07 94 Room Air 08/29/16 23:00 75 18 08/29/16 22:46 82 08/29/16 20:56 36.9 82 18 102/46 95 Room Air Physical Exam GENERAL: Awake, alert, well-appearing, in no distress HENT: Normocephalic, atraumatic. Oropharynx unremarkable. EYES: Normal conjunctiva. Sclera non-icteric. NECK: Supple. No nuchal rigidity. FROM. No JVD. RESPIRATORY: Clear to auscultation. CARDIAC: Regular rate, normal rhythm. Extremities warm and well perfused. Pulses equal. ABDOMEN: Soft, non-distended. No tenderness to palpation. No rebound or guarding. No masses. RECTAL: Deferred. MUSCULOSKELETAL: Chest examination reveals no tenderness. The back is symmetrical on inspection without obvious abnormality. There is no CVA tenderness to palpation. No joint edema. LOWER EXTREMITIES: Calves are equal size bilaterally and non-tender. No edema. No discoloration. Surgical scar of the left knee with some mild tenderness over the anterior patella. NEURO: Normal sensorium. No sensory or motor deficits noted. Generalized weakness. SKIN: No rash or jaundice noted. Medical Decision & Procedures ER Provider Diagnostic Interpretation: X-ray: Per my interpretation. LEFT KNEE: osteoarthritis, left knee prosthesis intact, no obvious fractures. RIGHT KNEE: Osteoarthritis, no obvious fractures. Laboratory Results 08/29/16 22:52 Red Blood Count 4.13, Mean Corpuscular Volume 79.2, Mean Corpuscular Hemoglobin 24.7, Mean Corpuscular Hemoglobin Concent 31.2, Mean Platelet Volume 10.9, Neutrophils (%) (Auto) 74.9, Lymphocytes (%) (Auto) 12.8, Monocytes (%) (Auto) 9.5, Eosinophils (%) (Auto) 2.2, Basophils (%) (Auto) 0.3, Neutrophils # (Auto) 8.66, Lymphocytes # (Auto) 1.48, Monocytes # (Auto) 1.10, Eosinophils # (Auto) 0.26, Basophils # (Auto) 0.03 08/29/16 22:52 Test 08/29/16 22:52 White Blood Count 11.57 K/uL (4.8-10.8) Red Blood Count 4.13 M/uL (4.7-6.1) Hemoglobin 10.2 g/dL (14.0-18.0) Hematocrit 32.7 % (42-52) Mean Corpuscular Volume 79.2 fL (80-100) Mean Corpuscular Hemoglobin 24.7 pg (25-34) Mean Corpuscular Hemoglobin Concent 31.2 g/dl (32-36) Platelet Count 229 K/uL (130-400) Mean Platelet Volume 10.9 fL (7.4-10.4) Neutrophils (%) (Auto) 74.9 % Lymphocytes (%) (Auto) 12.8 % Monocytes (%) (Auto) 9.5 % Eosinophils (%) (Auto) 2.2 % Basophils (%) (Auto) 0.3 % Neutrophils # (Auto) 8.66 K/uL (1.4-6.5) Lymphocytes # (Auto) 1.48 K/uL (1.2-3.4) Monocytes # (Auto) 1.10 K/uL (0.11-0.59) Eosinophils # (Auto) 0.26 K/uL (0-0.5) Basophils # (Auto) 0.03 K/uL (0-0.2) RDW Standard Deviation 51.5 fL (36.4-46.3) RDW Coefficient of Variation 17.6 % (11.5-14.5) Immature Granulocyte % (Auto) 0.3 % Immature Granulocyte # (Auto) 0.04 K/uL (0.00-0.02) Prothrombin Time 10.4 SECONDS (9.0-12.0) Prothromb Time International Ratio 1.0 (0.9-1.1) Activated Partial Thromboplast Time 26.4 SECONDS (21.0-31.0) Partial Thromboplastin Ratio 1.0 Anion Gap 4.0 mmol/L (3-11) Est Creatinine Clear Calc Drug Dose 81.4 ml/min Estimated GFR () 75.7 Estimated GFR (Non- 65.3 BUN/Creatinine Ratio 15.4 (10-20) Calcium Level 8.9 mg/dl (8.5-10.1) Magnesium Level 1.9 mg/dl (1.8-2.4) Total Bilirubin 0.2 mg/dl (0.2-1) Direct Bilirubin < 0.1 mg/dl (0-0.2) Aspartate Amino Transf (AST/SGOT) 9 U/L (15-37) Alanine Aminotransferase (ALT/SGPT) 18 U/L (12-78) Alkaline Phosphatase 70 U/L (45-117) Total Protein 6.7 gm/dl (6.4-8.2) Albumin 2.8 gm/dl (3.4-5.0) Laboratory results reviewed by ca ED Course 2222: The patient was evaluated in room C1b. A complete history and physical exam was performed. 0030: The case hardener discussed the disposition options with them. 0041: [facility] [place] [facility] Decision Differential diagnosis: Etiologies such as fracture, dislocation, neurovascular compromise, compartment syndrome, soft tissue injury, as well as others were entertained. Spoke with patient's states that she cannot take care of the patient at home. [facility] Imp[facility] Primary Impression: Knee pain Additional Impression: Weakness Scribe Attestation The scribe's documentation has been prepared under my direction and personally reviewed by me in its entirety. I confirm that the note above accurately reflects all work, treatment, procedures, and medical decision making performed by me. Departure Information Dispostion Being Evaluated By Hospitalist Referrals Oren Davis (PCP) Patient Instructions My [facility] Health Problem Qualifiers Primary Impression: Knee pain Laterality: bilateral Chronicity: acute Qualified Codes: M25.561 - Pain in right knee; M25.562 - Pain in left knee
[2016-08-29 23:12] LABS: BASO % 0.3 %; BASO ABS # 0.03 K/uL (0-0.2); COMPLETE YES; EOS % 2.2 %; HEMATOCRIT 32.7 % (42-52); IG% 0.3 %; LYMPH % 12.8 %; LYMPH ABS # 1.48 K/uL (1.2-3.4); MEAN CELL VOLUME 79.2 fL (80-100); MEAN CORPUSCULAR HEMOGLOBIN 24.7 pg (25-34); MEAN CORPUSCULAR HGB CONC 31.2 g/dl (32-36); MEAN PLATELET VOLUME 10.9 fL (7.4-10.4); MONO % 9.5 %; NEUT % 74.9 %; PLATELET COUNT 229 K/uL (130-400); RED BLOOD COUNT 4.13 M/uL (4.7-6.1); WHITE BLOOD COUNT 11.57 K/uL (4.8-10.8)
[2016-08-29 23:22] LABS: PROTHROMBIN TIME (PATIENT) 10.4 SECONDS (9.0-12.0)
[2016-08-29 23:30] LABS: ALT/SGPT 18 U/L (12-78); AST/SGOT 9 U/L (15-37); BLOOD UREA NITROGEN 17 mg/dl (7-18); BUN/CREATININE RATIO 15.4 (10-20); CALCIUM 8.9 mg/dl (8.5-10.1); CARBON DIOXIDE 36 mmol/L (21-32); CHLORIDE 104 mmol/L (98-107); GLUCOSE 127 mg/dl (70-99); MAGNESIUM 1.9 mg/dl (1.8-2.4); POTASSIUM 3.4 mmol/L (3.5-5.1); SODIUM 144 mmol/L (136-145)
[2016-08-29 23:32] LABS: ALKALINE PHOSPHATASE 70 U/L (45-117)
[2016-08-30] MEDS ORDERED: ACETAMINOPHEN 325 MG TAB PO PRN (01:30)
[2016-08-30] MEDS ORDERED: POTASSIUM CHLORIDE 10 MEQ TABCR PO ONE (01:30)
[2016-08-30] MEDS ORDERED: ONDANSETRON INJ 2 MG/ML 2 ML VIAL IV PRN (01:30)
--- NOTE | 2016-08-30 01:37 | History and Physical ---
History & Physical Date & Time of Service: Aug 30, 2016 at 01:37 Chief Complaint: R Knee Pain Primary Care Physician: Chi Meyers M.D.(CYNTHIA) History of Present Illness Source: patient, family Patient is a 75 yr old male with PMH of CVA with residual R sided paresthesias, Hypothyroidism, HTN, Polymyalgia rheumatica, chronic pain syndrome, H/O GI bleed and other comorbidities presents to the ED for evaluation after a fall at home. Patient was admitted multiple times recently since May 2016 for Aspiration pneumonia, rectal bleeding, since after having surgery of left knee. Patient had a CVA in 1996 that resulted in loss of mobility/weakness of his right side. Patient is a poor historian and most of the history is obtained from his family. Patient was discharged from [facility] today and while he was trying to go to bathroom, his legs well weak and he slid on to the floor and could not get up from the floor. He complains of left knee pain while ambulation. He ambulates with a walker at baseline. His reports that he fell twice today at home and she is unable to take care of him at home. Denies any history of head trauma, LOC, dizziness, chest pain, SOB, nausea, vomiting, abd pain, palpitations, fever, chills, blood in stools, melena. Reports chronic right sided weakness and chronic incontinence. Denies any new weakness. Past Medical/Surgical History Medical Problems: (1) Chronic pain syndrome Status: Chronic (2) COPD (chronic obstructive pulmonary disease) Status: Chronic (3) CVA (cerebral infarction) Status: Chronic (4) GI bleed Status: Resolved (5) Hypothyroidism Status: Chronic (6) FELICITA (iron deficiency anemia) Status: Chronic (7) Monoclonal gammopathy Status: Chronic (8) PMR (polymyalgia rheumatica) Status: Chronic (9) Right-sided nerve pain Status: Chronic (10) Right-sided numbness Status: Chronic (11) Sleep apnea Status: Chronic Surgical Problems: (1) H/O esophagogastroduodenoscopy Status: Chronic (2) H/O hernia repair Status: Chronic (3) S/P cholecystectomy Status: Chronic (4) S/P small bowel resection Status: Chronic Family History Diabetes mellitus Gallbladder disease Heart disease Hypertension Kidney disease Kidney stones Lung disease Stroke Reviewed, Not relevant Social History Smoking Status: Former Smoker Alcohol Use: none Drug Use: none Marital Status: Housing status: other Occupational Status: retired Immunizations History of Influenza Vaccine: No History of Tetanus Vaccine?: Yes History of Pneumococcal: No History of Hepatitis B Vaccine: No Multi-Drug Resistant Organisms History of MDRO: No Allergies Coded Allergies: Iodinated Diagnostic Agents (Verified Allergy, Unknown, HIVES, 08/29/16) Home Medications Scheduled Aspirin (Aspirin Ec), 81 MG PO DAILY Bimatoprost (Lumigan), 1 DROPS OPB HS Cholecalciferol (Vitamin D3), 2,000 UNITS PO DAILY Cyanocobalamin (Vitamin B-12 1000 Mcg), 1,000 MCG PO QAM Donepezil HCl (Donepezil HCl), 5 MG PO HS Duloxetine Hcl (Cymbalta), 60 MG PO DAILY Fish Oil ([place]-3), 1 CAP PO DAILY Gabapentin (Neurontin), 600 MG PO TID Hctz/Losartan (Hyzaar 25MG/100MG), 1 TAB PO QAM Lactobacillus Acidophilus (Lactinex), 1 TAB PO BIDM Levothyroxine Sodium (Levothyroxine Sodium), 25 MCG PO 3XWK Levothyroxine Sodium (Levothyroxine Sodium), 50 MCG PO 4XWK Methadone Hcl (Dolophine), 40 MG PO QAM Methadone Hcl (Dolophine), 30 MG PO QPM/HS Omeprazole (Prilosec), 20 MG PO DAILY Prednisone (Prednisone), 10 MG PO BID Tamsulosin Hcl (Flomax), 0.4 MG PO BID Trazodone HCl (Trazodone HCl), 100 MG PO HS Scheduled PRN Ipratropium-Albuterol (Combivent Respimat), 1 PUFFS INH QID PRN for SOB/Wheezing Review of Systems See HPI for pertinent positives & negatives. A total of 10 systems reviewed and were otherwise negative. Physical Exam Vital Signs Date Time Temp Pulse Resp B/P Pulse Ox O2 Delivery O2 Flow Rate FiO2 08/29/16 23:51 128/62 97 Room Air 08/29/16 23:07 94 Room Air 08/29/16 23:00 75 18 08/29/16 22:46 82 08/29/16 20:56 36.9 82 18 102/46 95 Room Air General Appearance: WD/WN, no apparent distress, + obese Head: normocephalic, atraumatic Eyes: normal inspection, PERRL, EOMI ENT: normal ENT inspection, hearing grossly normal Neck: supple, trachea midline Respiratory/Chest: chest non-tender, lungs clear, normal breath sounds, no respiratory distress, no accessory muscle use Cardiovascular: regular rate, rhythm, no murmur, + pertinent finding (1+ b/l pedal edema) Abdomen/GI: normal bowel sounds, non tender, soft Genitourinary - Male: + pertinent finding (Chronic Incontinence ) Back: normal inspection Extremities/Musculoskelatal: normal inspection, + pertinent finding (1+ b/l pedal edema, mild left knee tenderness) Neurologic/Psych: alert, normal mood/affect, oriented x 3, + pertinent finding (Grossly no focal deficits, +B/L LE weakness) Skin: normal color, warm/dry, + pertinent finding (Left knee surgical scar intact) Diagnostics Laboratory Results Results Past 24 Hours Test 08/29/16 22:52 Range/Units White Blood Count 11.57 4.8-10.8 K/uL Red Blood Count 4.13 4.7-6.1 M/uL Hemoglobin 10.2 14.0-18.0 g/dL Hematocrit 32.7 42-52 % Mean Corpuscular Volume 79.2 80-100 fL Mean Corpuscular Hemoglobin 24.7 25-34 pg Mean Corpuscular Hemoglobin Concent 31.2 32-36 g/dl Platelet Count 229 130-400 K/uL Mean Platelet Volume 10.9 7.4-10.4 fL Neutrophils (%) (Auto) 74.9 % Lymphocytes (%) (Auto) 12.8 % Monocytes (%) (Auto) 9.5 % Eosinophils (%) (Auto) 2.2 % Basophils (%) (Auto) 0.3 % Neutrophils # (Auto) 8.66 1.4-6.5 K/uL Lymphocytes # (Auto) 1.48 1.2-3.4 K/uL Monocytes # (Auto) 1.10 0.11-0.59 K/uL Eosinophils # (Auto) 0.26 0-0.5 K/uL Basophils # (Auto) 0.03 0-0.2 K/uL RDW Standard Deviation 51.5 36.4-46.3 fL RDW Coefficient of Variation 17.6 11.5-14.5 % Immature Granulocyte % (Auto) 0.3 % Immature Granulocyte # (Auto) 0.04 0.00-0.02 K/uL Prothrombin Time 10.4 9.0-12.0 SECONDS Prothromb Time International Ratio 1.0 0.9-1.1 Activated Partial Thromboplast Time 26.4 21.0-31.0 SECONDS Partial Thromboplastin Ratio 1.0 Sodium Level 144 136-145 mmol/L Potassium Level 3.4 3.5-5.1 mmol/L Chloride Level 104 98-107 mmol/L Carbon Dioxide Level 36 21-32 mmol/L Anion Gap 4.0 3-11 mmol/L Blood Urea Nitrogen 17 7-18 mg/dl Creatinine 1.10 0.60-1.40 mg/dl Est Creatinine Clear Calc Drug Dose 81.4 ml/min Estimated GFR () 75.7 Estimated GFR (Non- 65.3 BUN/Creatinine Ratio 15.4 10-20 Random Glucose 127 70-99 mg/dl Calcium Level 8.9 8.5-10.1 mg/dl Magnesium Level 1.9 1.8-2.4 mg/dl Total Bilirubin 0.2 0.2-1 mg/dl Direct Bilirubin < 0.1 0-0.2 mg/dl Aspartate Amino Transf (AST/SGOT) 9 15-37 U/L Alanine Aminotransferase (ALT/SGPT) 18 12-78 U/L Alkaline Phosphatase 70 45-117 U/L Total Protein 6.7 6.4-8.2 gm/dl Albumin 2.8 3.4-5.0 gm/dl Diagnostic Radiology Knee x ray: No obvious fractures. Follow up official read by radiology EKG EKG: Sinus Rhythm, Premature atrial complexes Impression Assessment and Plan Fall/Left Knee pain/Ambulatory dysfunction: H/O right sided weakness from prior CVA No new weakness/Head trauma/LOC Knee X ray: No obvious fractures. Follow up official reading PT/OT May need rehab placement Fall precautions Hypokalemia: On Hyzaar at home Replace and monitor Hypothyroidism: Continue levothyroxine Check TSH, free T4 H/O CVA s/p CVA 1996; has residual R sided paresthesia and chronic nerve pain Continue ASA H/O GI Bleed: Hb at baseline Currently no acute bleeding monitor Hb Chronic Pain syndrome: Continue home meds Depression: Stable Continue Cymbalta DVT Px: Heparin SQ Code Status: Full code Disposition: To be determined VTE Prophylaxis VTE Risk Assessment Done? Y/N: Yes Risk Level: Moderate
[2016-08-30] MEDS ORDERED: SODIUM CHLORIDE 0.9% 250ML 250 ML IV ONE (01:45)
[2016-08-30] MEDS ORDERED: IV FLUIDS COMPLETED PRN (01:45)
[2016-08-30] MEDS ORDERED: ALBUT/IPRATROP 3MG/0.5MG NEB 3 ML VIAL INH PRN (02:00)
[2016-08-30 02:15] VITALS: BP 130/82; PULSE 86; TEMP 36.9; O2SAT 95; O2SAT 96; Ht 188 cm; Wt 122.8 kg
[2016-08-30 06:00] VITALS: O2SAT 93
[2016-08-30] MEDS ORDERED: LEVOTHYROXINE 50 MCG TAB PO SCH (06:00)
[2016-08-30 06:30] LABS: BASO % 0.3 %; BASO ABS # 0.03 K/uL (0-0.2); COMPLETE YES; EOS % 4.5 %; HEMATOCRIT 30.7 % (42-52); IG% 0.3 %; LYMPH % 20.5 %; LYMPH ABS # 1.85 K/uL (1.2-3.4); MEAN CELL VOLUME 78.7 fL (80-100); MEAN CORPUSCULAR HEMOGLOBIN 24.6 pg (25-34); MEAN CORPUSCULAR HGB CONC 31.3 g/dl (32-36); MEAN PLATELET VOLUME 10.3 fL (7.4-10.4); MONO % 11.1 %; NEUT % 63.3 %; PLATELET COUNT 201 K/uL (130-400); WHITE BLOOD COUNT 9.03 K/uL (4.8-10.8)
[2016-08-30] MEDS: HEPARIN SOD 5000 UNIT/0.5 ML CARP SQ SCH ×3 (06:33→22:05)
[2016-08-30 06:58] LABS: BUN/CREATININE RATIO 18.1 (10-20); CALCIUM 8.8 mg/dl (8.5-10.1); CREATININE 0.9 mg/dl (0.60-1.40); POTASSIUM 3.7 mmol/L (3.5-5.1)
[2016-08-30 07:08] LABS: THYROID STIMULATING HORMONE 1.58 uIu/ml (0.300-4.500)
[2016-08-30 07:09] VITALS: BP 137/74; PULSE 82; TEMP 36.8; O2SAT 93
--- NOTE | 2016-08-30 07:19 | DIAGNOSTIC IMAGING REPORT ---
RIGHT KNEE 3 VIEWS CLINICAL HISTORY: Right knee pain. FINDINGS: AP, crosstable lateral, and sunrise views of the right knee are obtained. No prior studies are available for comparison at the time of dictation. The skeletal structures are osteopenic. No fracture is seen. There is advanced tricompartmental degenerative joint space narrowing, greatest at the patellofemoral articulation, where there is bony sclerosis and subchondral cyst formation. There are large patellar enthesophytes as well as large marginal osteophytes. Bony overgrowth is noted from the anterior tibial tuberosity. There is no large joint effusion. Mild soft tissue swelling is seen around the knee. Advanced atherosclerotic calcification is present in the popliteal artery. IMPRESSION: 1. Mild soft tissue swelling with no acute bony abnormality seen in the right knee. 2. Osteopenia and advanced arthritic change as above. Electronically signed by: Raoul Covington M.D. 08/30/2016 7:18 AM Dictated Date/Time: 08/30/2016 7:16 AM
--- NOTE | 2016-08-30 07:21 | DIAGNOSTIC IMAGING REPORT ---
LEFT KNEE 3 VIEWS CLINICAL HISTORY: Left knee pain. FINDINGS: AP, crosstable lateral, and sunrise views of the left knee are compared to study dated 06/25/2016. The skeletal structures are osteopenic. There is no radiographic evidence of fracture. A left knee arthroplasty is in near-anatomic alignment. No periprosthetic lucency is identified. There has been undersurface remodeling of the patella. A joint effusion is noted. Bony overgrowth is seen from the anterior tibial tuberosity. Soft tissue edema is present around the knee and there is advanced atherosclerotic calcification of the popliteal artery. IMPRESSION: 1. Soft tissue swelling and joint effusion. No fracture is seen. 2. A left knee arthroplasty is in near anatomic alignment. Electronically signed by: Raoul Covington M.D. 08/30/2016 7:19 AM Dictated Date/Time: 08/30/2016 7:18 AM
[2016-08-30] MEDS: ASPIRIN 81 MG ECTAB PO SCH (07:46)
[2016-08-30] MEDS: DULOXETINE HCL 60 MG CAP PO SCH (07:46)
[2016-08-30] MEDS: CYANOCOBALAMIN 500 MCG TAB (VIT B-12) PO SCH (07:47)
[2016-08-30] MEDS: TAMSULOSIN HCL 0.4 MG CAP PO SCH ×2 (07:47→21:58)
[2016-08-30] MEDS: LACTOBACILLUS ACIDOPHILUS (FLORANEX) TAB PO SCH ×2 (07:48→17:37)
[2016-08-30] MEDS: GABAPENTIN 600 MG TAB PO SCH ×3 (07:49→21:58)
[2016-08-30] MEDS: CHOLECALCIFEROL 1000 INTER.UNIT TAB PO SCH (07:49)
[2016-08-30] MEDS: LOSARTAN/HCTZ 50-12.5 EA TAB PO SCH (07:49)
[2016-08-30] MEDS: PANTOprazole SOD 40 MG TAB PO SCH (07:50)
[2016-08-30] MEDS: METHADONE HCL 10 MG TAB PO SCH (08:08)
[2016-08-30 08:30] VITALS: O2SAT 96
--- NOTE | 2016-08-30 13:10 | Progress Note ---
Medicine Progress Note Date & Time of Visit: Aug 30, 2016 at 12:59. Subjective Pt was seen and examined Lying in bed with no distress Pt feels a little upset because he said his just called him and told him that she has breast cancer He asked to call the , pt said that she is at work denies any chest pain, palpitation, dizziness and sob Objective Last 8 Hrs Date Time Temp Pulse Resp B/P Pulse Ox O2 Delivery O2 Flow Rate FiO2 08/30/16 08:30 96 Room Air 08/30/16 07:09 36.8 82 18 137/74 93 Room Air 08/30/16 06:00 93 Room Air Physical Exam: General- No acute distress, obese Head- atraumatic Eyes- PERRL, EOMI ENT- oropharynx clear Neck- supple, no JVD Lungs- No wheezing, no crackles Heart- regular rhythm; no murmur Abdomen- normal bowel sounds, soft Extremities- no calf tenderness, +edema Neuro- alert, oriented, PERRL, EOMI; no facial palsy Skin- warm & dry Laboratory Results: Last 24 Hours Test 08/29/16 22:52 08/30/16 06:00 White Blood Count 11.57 K/uL 9.03 K/uL Red Blood Count 4.13 M/uL 3.90 M/uL Hemoglobin 10.2 g/dL 9.6 g/dL Hematocrit 32.7 % 30.7 % Mean Corpuscular Volume 79.2 fL 78.7 fL Mean Corpuscular Hemoglobin 24.7 pg 24.6 pg Mean Corpuscular Hemoglobin Concent 31.2 g/dl 31.3 g/dl Platelet Count 229 K/uL 201 K/uL Mean Platelet Volume 10.9 fL 10.3 fL Neutrophils (%) (Auto) 74.9 % 63.3 % Lymphocytes (%) (Auto) 12.8 % 20.5 % Monocytes (%) (Auto) 9.5 % 11.1 % Eosinophils (%) (Auto) 2.2 % 4.5 % Basophils (%) (Auto) 0.3 % 0.3 % Neutrophils # (Auto) 8.66 K/uL 5.71 K/uL Lymphocytes # (Auto) 1.48 K/uL 1.85 K/uL Monocytes # (Auto) 1.10 K/uL 1.00 K/uL Eosinophils # (Auto) 0.26 K/uL 0.41 K/uL Basophils # (Auto) 0.03 K/uL 0.03 K/uL RDW Standard Deviation 51.5 fL 50.7 fL RDW Coefficient of Variation 17.6 % 17.9 % Immature Granulocyte % (Auto) 0.3 % 0.3 % Immature Granulocyte # (Auto) 0.04 K/uL 0.03 K/uL Prothrombin Time 10.4 SECONDS Prothromb Time International Ratio 1.0 Activated Partial Thromboplast Time 26.4 SECONDS Partial Thromboplastin Ratio 1.0 Sodium Level 144 mmol/L 141 mmol/L Potassium Level 3.4 mmol/L 3.7 mmol/L Chloride Level 104 mmol/L 104 mmol/L Carbon Dioxide Level 36 mmol/L 31 mmol/L Anion Gap 4.0 mmol/L 6.0 mmol/L Blood Urea Nitrogen 17 mg/dl 16 mg/dl Creatinine 1.10 mg/dl 0.90 mg/dl Est Creatinine Clear Calc Drug Dose 81.4 ml/min 98.4 ml/min Estimated GFR () 75.7 96.5 Estimated GFR (Non- 65.3 83.3 BUN/Creatinine Ratio 15.4 18.1 Random Glucose 127 mg/dl 77 mg/dl Calcium Level 8.9 mg/dl 8.8 mg/dl Magnesium Level 1.9 mg/dl Total Bilirubin 0.2 mg/dl Direct Bilirubin < 0.1 mg/dl Aspartate Amino Transf (AST/SGOT) 9 U/L Alanine Aminotransferase (ALT/SGPT) 18 U/L Alkaline Phosphatase 70 U/L Total Protein 6.7 gm/dl Albumin 2.8 gm/dl Thyroid Stimulating Hormone (TSH) 1.580 uIu/ml Free Thyroxine 1.07 ng/dl Assessment & Plan Fall/Left Knee pain/Ambulatory dysfunction: H/O right sided weakness from prior CVA Knee X ray: No obvious fractures Continue PT/OT Waiting for insurance approval for placement to rehab Fall precautions Hypokalemia: On Hyzaar at home stable Hypothyroidism: Continue levothyroxine H/O CVA s/p CVA 1996; has residual R sided paresthesia and chronic nerve pain Continue ASA H/O GI Bleed: Hgb 9.6 stable Chronic Pain syndrome: Continue home meds Depression: Stable Continue Cymbalta DVT Px: Heparin SQ Code Status: Full code Disposition: Waiting for insurance approval for placement to rehab. Current Inpatient Medications: Current Inpatient Medications Medications (Trade) Dose Ordered Sig/Milka Route Start Time Stop Time Status Last Admin Dose Admin Heparin Sodium (Porcine) (Heparin Sq 5000 Unit/0.5ml) 5,000 unit Q8H SQ 08/30/16 06:00 09/29/16 05:59 08/30/16 06:33 5,000 UNIT Acetaminophen (Tylenol Tab) 650 mg Q4H PRN PO 08/30/16 01:30 09/29/16 01:29 Ondansetron HCl (Zofran Inj) 4 mg Q6H PRN IV 08/30/16 01:30 09/29/16 01:29 Miscellaneous (Iv Fluids Completed) 1 ea PRN PRN N/A 08/30/16 01:45 08/30/17 01:44 Aspirin (Ecotrin Tab) 81 mg DAILY PO 08/30/16 09:00 09/29/16 08:59 08/30/16 07:46 81 MG Cyanocobalamin (Vitamin B-12 Tab) 1,000 mcg QAM PO 08/30/16 09:00 09/29/16 08:59 08/30/16 07:47 1,000 MCG Donepezil HCl (Aricept Tab) 5 mg HS PO 08/30/16 21:00 09/29/16 20:59 Duloxetine HCl (Cymbalta Cap) 60 mg DAILY PO 08/30/16 09:00 09/29/16 08:59 08/30/16 07:46 60 MG Gabapentin (Neurontin Tab) 600 mg TID PO 08/30/16 09:00 09/29/16 08:59 08/30/16 07:49 600 MG HCTZ/Losartan Potassium (Hyzaar 50-12.5 Tab) 1 tab QAM PO 08/30/16 09:00 09/29/16 08:59 08/30/16 07:49 1 TAB Lactobacillus Acidophilus (Floranex Tab) 4 tab BIDM PO 08/30/16 08:00 09/29/16 07:59 08/30/16 07:48 4 TAB Levothyroxine Sodium (Synthroid Tab) 25 mcg MoWeFr@0600 PO 08/31/16 06:00 09/30/16 05:59 Levothyroxine Sodium (Synthroid Tab) 50 mcg SuTuThSa@0600 PO 08/30/16 06:00 09/29/16 05:59 08/30/16 06:34 50 MCG Methadone HCl (Dolophine Tab) 30 mg HS PO 08/30/16 21:00 09/13/16 20:59 Methadone HCl (Dolophine Tab) 40 mg QAM PO 08/30/16 09:00 09/13/16 08:59 08/30/16 08:08 40 MG Prednisone (PredniSONE TAB) 5 mg BID PO 08/30/16 09:00 09/29/16 08:59 08/30/16 07:47 5 MG Tamsulosin HCl (Flomax Cap) 0.4 mg BID PO 08/30/16 09:00 09/29/16 08:59 08/30/16 07:47 0.4 MG Trazodone HCl (Desyrel Tab) 100 mg HS PO 08/30/16 21:00 09/29/16 20:59 Bimatoprost (Lumigan 0.01%) 1 drops HS OPB 08/30/16 21:00 09/29/16 20:59 Cholecalciferol (Vitamin D Tab) 2,000 inter.unit DAILY PO 08/30/16 09:00 09/29/16 08:59 08/30/16 07:49 2,000 INTER.UNIT Pantoprazole Sodium (Protonix Tab) 40 mg DAILY PO 08/30/16 09:00 09/29/16 08:59 08/30/16 07:50 40 MG Albuterol/ Ipratropium (Duoneb) 3 ml Q4R PRN INH 08/30/16 02:00 09/29/16 01:59
[2016-08-30] MEDS ORDERED: TRAMADOL HCL 50 MG TAB PO PRN (15:00)
[2016-08-30 15:05] VITALS: BP 110/65; PULSE 77; TEMP 36.9; O2SAT 92
--- NOTE | 2016-08-30 15:19 | Medical Consult ---
Consultation Date of Consultation: Aug 30, 2016. Attending Physician: Pablo Morales M.D. Reason for Consultation: left knee pain; s/p Left TKA; s/p fall - Requested by patient's . History of Present Illness Patient is a pleasant 75 year old male, s/p fall yesterday at home. He was discharged from [facility] yesterday and fell while in the bathroom at his home. He states that his left knee when down beside the toilet and got twisted. He was brought to the ED yesterday and was admitted for care. He states that prior to his fall he was able to ambulate up to 90 feet, now he can' t put any pressure on his knee. He reports his knee giving out on him. He states that most of his pain is in the back and inside part of his knee. He states that he was doing very well up until this fall. He denies any other injuries. He's tried ambulating here today with physical therapy and the assistance of a walker and is unable to do so due to pain in his left knee. No pain in his right knee. Past Medical/Surgical History Medical Problems: (1) Altered mental status Status: Acute (2) Ambulatory dysfunction Status: Acute (3) Anticoagulated Status: Acute (4) Aspiration pneumonia Status: Acute (5) Ataxia Status: Acute (6) Diplopia Status: Acute (7) Fall Status: Acute (8) Frequent falls Status: Acute (9) Generalized weakness Status: Acute (10) GI bleed Status: Acute (11) GI bleed Status: Acute (12) Hip pain Status: Acute (13) History of CVA with residual deficit Status: Acute (14) Knee pain Status: Acute (15) Right rib fracture Status: Acute (16) Sepsis Status: Acute (17) Weakness Status: Acute Family History Diabetes mellitus Gallbladder disease Heart disease Hypertension Kidney disease Kidney stones Lung disease Stroke Social History Smoking Status: Unknown if Ever Smoked Drug Use: none Marital Status: Housing Status: lives with family, lives with significant other Occupation Status: retired Allergies Coded Allergies: Iodinated Diagnostic Agents (Verified Allergy, Unknown, HIVES, 08/29/16) Current Inpatient Medications Current Inpatient Medications Medications (Trade) Dose Ordered Sig/Milka Route Start Time Stop Time Status Last Admin Dose Admin Heparin Sodium (Porcine) (Heparin Sq 5000 Unit/0.5ml) 5,000 unit Q8H SQ 08/30/16 06:00 09/29/16 05:59 08/30/16 14:28 5,000 UNIT Acetaminophen (Tylenol Tab) 650 mg Q4H PRN PO 08/30/16 01:30 09/29/16 01:29 Ondansetron HCl (Zofran Inj) 4 mg Q6H PRN IV 08/30/16 01:30 09/29/16 01:29 Miscellaneous (Iv Fluids Completed) 1 ea PRN PRN N/A 08/30/16 01:45 08/30/17 01:44 Aspirin (Ecotrin Tab) 81 mg DAILY PO 08/30/16 09:00 09/29/16 08:59 08/30/16 07:46 81 MG Cyanocobalamin (Vitamin B-12 Tab) 1,000 mcg QAM PO 08/30/16 09:00 09/29/16 08:59 08/30/16 07:47 1,000 MCG Donepezil HCl (Aricept Tab) 5 mg HS PO 08/30/16 21:00 09/29/16 20:59 Duloxetine HCl (Cymbalta Cap) 60 mg DAILY PO 08/30/16 09:00 09/29/16 08:59 08/30/16 07:46 60 MG Gabapentin (Neurontin Tab) 600 mg TID PO 08/30/16 09:00 09/29/16 08:59 08/30/16 14:25 600 MG HCTZ/Losartan Potassium (Hyzaar 50-12.5 Tab) 1 tab QAM PO 08/30/16 09:00 09/29/16 08:59 08/30/16 07:49 1 TAB Lactobacillus Acidophilus (Floranex Tab) 4 tab BIDM PO 08/30/16 08:00 09/29/16 07:59 08/30/16 07:48 4 TAB Levothyroxine Sodium (Synthroid Tab) 25 mcg MoWeFr@0600 PO 08/31/16 06:00 09/30/16 05:59 Levothyroxine Sodium (Synthroid Tab) 50 mcg SuTuThSa@0600 PO 08/30/16 06:00 09/29/16 05:59 08/30/16 06:34 50 MCG Methadone HCl (Dolophine Tab) 30 mg HS PO 08/30/16 21:00 09/13/16 20:59 Methadone HCl (Dolophine Tab) 40 mg QAM PO 08/30/16 09:00 09/13/16 08:59 08/30/16 08:08 40 MG Prednisone (PredniSONE TAB) 5 mg BID PO 08/30/16 09:00 09/29/16 08:59 08/30/16 07:47 5 MG Tamsulosin HCl (Flomax Cap) 0.4 mg BID PO 08/30/16 09:00 09/29/16 08:59 08/30/16 07:47 0.4 MG Trazodone HCl (Desyrel Tab) 100 mg HS PO 08/30/16 21:00 09/29/16 20:59 Bimatoprost (Lumigan 0.01%) 1 drops HS OPB 08/30/16 21:00 09/29/16 20:59 Cholecalciferol (Vitamin D Tab) 2,000 inter.unit DAILY PO 08/30/16 09:00 09/29/16 08:59 08/30/16 07:49 2,000 INTER.UNIT Pantoprazole Sodium (Protonix Tab) 40 mg DAILY PO 08/30/16 09:00 09/29/16 08:59 08/30/16 07:50 40 MG Albuterol/ Ipratropium (Duoneb) 3 ml Q4R PRN INH 08/30/16 02:00 09/29/16 01:59 Tramadol HCl (Ultram Tab) 50 mg Q12 PRN PO 08/30/16 15:00 09/29/16 14:59 UNV Review of Systems Constitutional: No chills, No fever, No sweats Musculoskeletal: + joint pain (left knee pain), + problem reported (states that his knee keeps giving out, pain with weight bearing and with any movement) , + swelling, No calf pain Physical Exam Date Time Temp Pulse Resp B/P Pulse Ox O2 Delivery O2 Flow Rate FiO2 08/30/16 08:30 96 Room Air 08/30/16 07:09 36.8 82 18 137/74 93 Room Air 08/30/16 06:00 93 Room Air 08/30/16 02:15 96 Room Air 08/30/16 02:15 36.9 86 18 130/82 Room Air 08/30/16 01:55 82 18 139/74 95 Room Air 08/29/16 23:51 128/62 97 Room Air 08/29/16 23:07 94 Room Air 08/29/16 23:00 75 18 08/29/16 22:46 82 08/29/16 20:56 36.9 82 18 102/46 95 Room Air General Appearance: WD/WN, no apparent distress Extremities/Musculoskelatal: + pertinent finding (left knee - incision healed nicely, no erythema, minimal warmth, no ecchymosis, skin intact. atraumatic. He does have a palpable moderate knee effusion. He is unable to independently SLR his left lower extremity today. He has no tenderness with palpation of his patella, distal femur and tib/fib. No distal edema, distal pulses 1+. No calf tenderness, mild fullness in popliteal space. Passive ROM tolerated, 0- 115 today; limited due to pain and effusion. unable to tolerated active ROM due to pain. Is tender to palpation over the MCL left knee. exquisite pain with valgus stress at 30 deg with mild laxity of MCL. No discomfort with varus stress. Unalbe to lift heel off of bed idependently or hold up against resistance. Non tender over patella tendon, mild tenderness with palpation of distal quad tendon. No definite defect appreciated. nontender with left hip ROM, and left thigh. Tolerates ankle ROM without discomfort. ) Laboratory Results Last 24 Hours Test 08/29/16 22:52 08/30/16 06:00 White Blood Count 11.57 K/uL 9.03 K/uL Red Blood Count 4.13 M/uL 3.90 M/uL Hemoglobin 10.2 g/dL 9.6 g/dL Hematocrit 32.7 % 30.7 % Mean Corpuscular Volume 79.2 fL 78.7 fL Mean Corpuscular Hemoglobin 24.7 pg 24.6 pg Mean Corpuscular Hemoglobin Concent 31.2 g/dl 31.3 g/dl Platelet Count 229 K/uL 201 K/uL Mean Platelet Volume 10.9 fL 10.3 fL Neutrophils (%) (Auto) 74.9 % 63.3 % Lymphocytes (%) (Auto) 12.8 % 20.5 % Monocytes (%) (Auto) 9.5 % 11.1 % Eosinophils (%) (Auto) 2.2 % 4.5 % Basophils (%) (Auto) 0.3 % 0.3 % Neutrophils # (Auto) 8.66 K/uL 5.71 K/uL Lymphocytes # (Auto) 1.48 K/uL 1.85 K/uL Monocytes # (Auto) 1.10 K/uL 1.00 K/uL Eosinophils # (Auto) 0.26 K/uL 0.41 K/uL Basophils # (Auto) 0.03 K/uL 0.03 K/uL RDW Standard Deviation 51.5 fL 50.7 fL RDW Coefficient of Variation 17.6 % 17.9 % Immature Granulocyte % (Auto) 0.3 % 0.3 % Immature Granulocyte # (Auto) 0.04 K/uL 0.03 K/uL Prothrombin Time 10.4 SECONDS Prothromb Time International Ratio 1.0 Activated Partial Thromboplast Time 26.4 SECONDS Partial Thromboplastin Ratio 1.0 Sodium Level 144 mmol/L 141 mmol/L Potassium Level 3.4 mmol/L 3.7 mmol/L Chloride Level 104 mmol/L 104 mmol/L Carbon Dioxide Level 36 mmol/L 31 mmol/L Anion Gap 4.0 mmol/L 6.0 mmol/L Blood Urea Nitrogen 17 mg/dl 16 mg/dl Creatinine 1.10 mg/dl 0.90 mg/dl Est Creatinine Clear Calc Drug Dose 81.4 ml/min 98.4 ml/min Estimated GFR () 75.7 96.5 Estimated GFR (Non- 65.3 83.3 BUN/Creatinine Ratio 15.4 18.1 Random Glucose 127 mg/dl 77 mg/dl Calcium Level 8.9 mg/dl 8.8 mg/dl Magnesium Level 1.9 mg/dl Total Bilirubin 0.2 mg/dl Direct Bilirubin < 0.1 mg/dl Aspartate Amino Transf (AST/SGOT) 9 U/L Alanine Aminotransferase (ALT/SGPT) 18 U/L Alkaline Phosphatase 70 U/L Total Protein 6.7 gm/dl Albumin 2.8 gm/dl Thyroid Stimulating Hormone (TSH) 1.580 uIu/ml Free Thyroxine 1.07 ng/dl Radiology images: LEFT KNEE 3 VIEWS CLINICAL HISTORY: Left knee pain. FINDINGS: AP, crosstable lateral, and sunrise views of the left knee are compared to study dated 06/25/2016. The skeletal structures are osteopenic. There is no radiographic evidence of fracture. A left knee arthroplasty is in near-anatomic alignment. No periprosthetic lucency is identified. There has been undersurface remodeling of the patella. A joint effusion is noted. Bony overgrowth is seen from the anterior tibial tuberosity. Soft tissue edema is present around the knee and there is advanced atherosclerotic calcification of the popliteal artery. IMPRESSION: 1. Soft tissue swelling and joint effusion. No fracture is seen. 2. A left knee arthroplasty is in near anatomic alignment. RIGHT KNEE 3 VIEWS CLINICAL HISTORY: Right knee pain. FINDINGS: AP, crosstable lateral, and sunrise views of the right knee are obtained. No prior studies are available for comparison at the time of dictation. The skeletal structures are osteopenic. No fracture is seen. There is advanced tricompartmental degenerative joint space narrowing, greatest at the patellofemoral articulation, where there is bony sclerosis and subchondral cyst formation. There are large patellar enthesophytes as well as large marginal osteophytes. Bony overgrowth is noted from the anterior tibial tuberosity. There is no large joint effusion. Mild soft tissue swelling is seen around the knee. Advanced atherosclerotic calcification is present in the popliteal artery. IMPRESSION: 1. Mild soft tissue swelling with no acute bony abnormality seen in the right knee. 2. Osteopenia and advanced arthritic change as above. Assessment & Plan Assessment: Left knee pain - suspect MCL sprain, effusion, questionable quadriceps tendon injury, s/p Left TKA 05/09/[address] Disla. Right knee DJD - asymptomatic today Plan: Discussed findings with Dr. Disla. Will plan for knee immobilizer when out of bed, WBAT with immobilizer on left knee. Will not attempt to aspirate fluid at this time due to having his knee just replaced in 05/09/16 and infection risk. he understands and agrees with the plan. Continue walker to assist with ambulation. We can further evaluate quad tendon as needed depending on how it improves over the next couple of days as an outpatient. He has scheduled follow up with Dr. Disla on 09/24/16. Recommend also ice to left knee, elevation, heels off bed, ambulation as tolerated. agree with above assessment and plan. DENIA
[2016-08-30] MEDS ORDERED: METHADONE HCL 10 MG TAB PO SCH (21:00)
[2016-08-30] MEDS ORDERED: DONEPEZIL HCL 5 MG TAB PO SCH (21:00)
[2016-08-30] MEDS ORDERED: BIMATOPROST 0.01% OP SOLN 2.5 ML BTL OPB SCH (21:00)
[2016-08-30] MEDS ORDERED: TRAZODONE HCL 100 MG TAB PO SCH (21:00)
[2016-08-30 22:52] VITALS: BP 114/75; PULSE 78; TEMP 37.1; O2SAT 94
[2016-08-31] MEDS: HEPARIN SOD 5000 UNIT/0.5 ML CARP SQ SCH ×2 (05:24→14:51)
[2016-08-31] MEDS ORDERED: LEVOTHYROXINE 25 MCG TAB PO SCH (06:00)
[2016-08-31 07:23] VITALS: BP 125/65; PULSE 63; TEMP 36.9; O2SAT 96
--- NOTE | 2016-08-31 08:32 | Orthopedic Progress Note ---
Orthopedic Progress Note Date of Service Aug 31, 2016. Subjective Reports: feeling well, pain controlled w PO medications, Denies: calf pain, nausea / vomiting Additional Notes: Still having left knee pain, but seems slightly better today. He states that "it's there". Sitting in bed, eating breakfast. States he was out of bed with brace on last night and it helped a lot. Objective calves soft nontender, capillary refill less than 2 sec., A&O x3, toes mobile Surgical incision left knee healed nicely. Small to moderate joint effusion left knee. Pain with palpation of medial aspect of distal quad tendon insertion , possible palpable defect over medial distal quad tendon to insertion of superior pole of patella as compared to the right knee. Tolerates passive flexion to about 90 deg. Tender to over MCL. No ecchymosis, no erythema, no calf pain with palpation. Unable to independently SLR LLE. Distal pulses 1+. Able to actively SLR right lower extremity. Date Time Temp Pulse Resp B/P Pulse Ox O2 Delivery O2 Flow Rate FiO2 08/31/16 07:23 36.9 63 16 125/65 96 Room Air 08/30/16 23:30 Room Air 08/30/16 22:52 37.1 78 18 114/75 94 Room Air 08/30/16 16:15 Room Air 08/30/16 15:05 36.9 77 18 110/65 92 Room Air 08/30/16 08:30 96 Room Air Assessment & Plan Assessment: Left knee pain - s/p fall; s/p Left TKA in May 2016, suspect MCL sprain; possible partial quad tendon rupture. Plan: Recommended ice as tolerated He may be out of bed, weight bear as tolerated with knee immobilizer on left knee at all times with ambulation. Encouraged ankle pumps. Continue walker to assist with ambulation. Will continue to follow and reassess as outpatient. Recommended follow up with Dr. Disla/[facility] in 1 week. DVT prophylaxis per medicine. Patient understands plan.
[2016-08-31] MEDS: LACTOBACILLUS ACIDOPHILUS (FLORANEX) TAB PO SCH (09:45)
[2016-08-31] MEDS: DULOXETINE HCL 60 MG CAP PO SCH (09:46)
[2016-08-31] MEDS: LOSARTAN/HCTZ 50-12.5 EA TAB PO SCH (09:47)
[2016-08-31] MEDS: ASPIRIN 81 MG ECTAB PO SCH (09:47)
[2016-08-31] MEDS: TAMSULOSIN HCL 0.4 MG CAP PO SCH (09:48)
[2016-08-31] MEDS: GABAPENTIN 600 MG TAB PO SCH ×2 (09:48→14:51)
[2016-08-31] MEDS: CYANOCOBALAMIN 500 MCG TAB (VIT B-12) PO SCH (09:48)
[2016-08-31] MEDS: CHOLECALCIFEROL 1000 INTER.UNIT TAB PO SCH (09:49)
[2016-08-31] MEDS: PANTOprazole SOD 40 MG TAB PO SCH (09:50)
[2016-08-31] MEDS: METHADONE HCL 10 MG TAB PO SCH (09:57)
[2016-08-31] MEDS ORDERED: MICONAZOLE NITRATE POWDER 43 GM EXT PRN (10:00)
[2016-08-31 14:58] VITALS: BP 136/76; PULSE 77; TEMP 36.5; O2SAT 92
--- NOTE | 2016-08-31 17:01 | Progress Note ---
Medicine Progress Note Date & Time of Visit: Aug 31, 2016 at 16:37. Subjective Pt was seen and examined Lying in bed with no distress Pt denies any chest pain, palpitation, dizziness and sob Objective Last 8 Hrs Date Time Temp Pulse Resp B/P Pulse Ox O2 Delivery O2 Flow Rate FiO2 08/31/16 14:58 36.5 77 18 136/76 92 Room Air Physical Exam: General- No acute distress, obese Head- atraumatic Eyes- PERRL, EOMI ENT- oropharynx clear Neck- supple, no JVD Lungs- No wheezing, no crackles Heart- regular rhythm; no murmur Abdomen- normal bowel sounds, soft Extremities- no calf tenderness, +edema Neuro- alert, oriented, PERRL, EOMI; no facial palsy Skin- warm & dry, ecchymoses in UE Assessment & Plan Fall/Left Knee pain/Ambulatory dysfunction: H/O right sided weakness from prior CVA Knee X ray: No obvious fractures.Soft tissue swelling and joint effusion Continue PT/OT Fall precautions Ortho consulted recommendation No fluid aspiration at this time due to risk of infection since Pt had knee replacement done on 05/09/16. Weight bear as tolerated left lower extremity with knee immobilizer on when out of bed and with walking. Use walker to assist with ambulation at all times. Ice to left knee as needed for pain/swelling. Follow up with Dr. Disla/Joey Fu PA-C in 7-10 days. Please call [phone] to schedule appointment. [facility] Hypokalemia On Hyzaar at home continue monitor stable Hypothyroidism: Continue levothyroxine H/O CVA s/p CVA 1996; has residual R sided paresthesia and chronic nerve pain Continue ASA H/O GI Bleed: stable Chronic Pain syndrome: Continue home meds Depression: Stable Continue Cymbalta DVT Px: Heparin SQ Code Status: Full code Disposition: [facility] Discharge to [facility]. Weight bear as tolerated left lower extremity with knee immobilizer on when out of bed and with walking. Use walker to assist with ambulation at all times. Ice to left knee as needed for pain/swelling. Follow up with Dr. Disla/Joey Fu PA-C in 7-10 days. Please call [phone] to schedule appointment. Consultants: Ortho Current Inpatient Medications: Current Inpatient Medications Medications (Trade) Dose Ordered Sig/Milka Route Start Time Stop Time Status Last Admin Dose Admin Heparin Sodium (Porcine) (Heparin Sq 5000 Unit/0.5ml) 5,000 unit Q8H SQ 08/30/16 06:00 09/29/16 05:59 08/31/16 14:51 5,000 UNIT Acetaminophen (Tylenol Tab) 650 mg Q4H PRN PO 08/30/16 01:30 09/29/16 01:29 Ondansetron HCl (Zofran Inj) 4 mg Q6H PRN IV 08/30/16 01:30 09/29/16 01:29 Miscellaneous (Iv Fluids Completed) 1 ea PRN PRN N/A 08/30/16 01:45 08/30/17 01:44 Aspirin (Ecotrin Tab) 81 mg DAILY PO 08/30/16 09:00 09/29/16 08:59 08/31/16 09:47 81 MG Cyanocobalamin (Vitamin B-12 Tab) 1,000 mcg QAM PO 08/30/16 09:00 09/29/16 08:59 08/31/16 09:48 1,000 MCG Donepezil HCl (Aricept Tab) 5 mg HS PO 08/30/16 21:00 09/29/16 20:59 08/30/16 21:57 5 MG Duloxetine HCl (Cymbalta Cap) 60 mg DAILY PO 08/30/16 09:00 09/29/16 08:59 08/31/16 09:46 60 MG Gabapentin (Neurontin Tab) 600 mg TID PO 08/30/16 09:00 09/29/16 08:59 08/31/16 14:51 600 MG HCTZ/Losartan Potassium (Hyzaar 50-12.5 Tab) 1 tab QAM PO 08/30/16 09:00 09/29/16 08:59 08/31/16 09:47 1 TAB Lactobacillus Acidophilus (Floranex Tab) 4 tab BIDM PO 08/30/16 08:00 09/29/16 07:59 08/31/16 09:45 4 TAB Levothyroxine Sodium (Synthroid Tab) 25 mcg MoWeFr@0600 PO 08/31/16 06:00 09/30/16 05:59 08/31/16 05:22 25 MCG Levothyroxine Sodium (Synthroid Tab) 50 mcg SuTuThSa@0600 PO 08/30/16 06:00 09/29/16 05:59 08/30/16 06:34 50 MCG Methadone HCl (Dolophine Tab) 30 mg HS PO 08/30/16 21:00 09/13/16 20:59 08/30/16 22:07 30 MG Methadone HCl (Dolophine Tab) 40 mg QAM PO 08/30/16 09:00 09/13/16 08:59 08/31/16 09:57 40 MG Prednisone (PredniSONE TAB) 5 mg BID PO 08/30/16 09:00 09/29/16 08:59 08/31/16 09:50 5 MG Tamsulosin HCl (Flomax Cap) 0.4 mg BID PO 08/30/16 09:00 09/29/16 08:59 08/31/16 09:48 0.4 MG Trazodone HCl (Desyrel Tab) 100 mg HS PO 08/30/16 21:00 09/29/16 20:59 08/30/16 21:57 100 MG Bimatoprost (Lumigan 0.01%) 1 drops HS OPB 08/30/16 21:00 09/29/16 20:59 08/30/16 21:58 1 DROPS Cholecalciferol (Vitamin D Tab) 2,000 inter.unit DAILY PO 08/30/16 09:00 09/29/16 08:59 08/31/16 09:49 2,000 INTER.UNIT Pantoprazole Sodium (Protonix Tab) 40 mg DAILY PO 08/30/16 09:00 09/29/16 08:59 08/31/16 09:50 40 MG Albuterol/ Ipratropium (Duoneb) 3 ml Q4R PRN INH 08/30/16 02:00 09/29/16 01:59 Tramadol HCl (Ultram Tab) 50 mg Q12 PRN PO 08/30/16 15:00 09/29/16 14:59 08/30/16 17:34 50 MG Miconazole Nitrate (Desenex Powder) 1 appln PRN PRN EXT 08/31/16 10:00 09/30/16 09:59
--- NOTE | 2016-08-31 17:09 | Discharge Instructions ---
Discharge Instructions Date of Service Aug 31, 2016. Admission Reason for Admission: FALL Discharge Discharge Diagnosis / Problem: S/P Fall/Ambulatory Dysfunction, Hypothyroidism , Hypokalemia Discharge Goals Goal(s): Decrease discomfort, Improve function, Improve disease control Activity Recommendations Activity Limitations: resume your previous activity (as tolerated) . Instructions / Follow-Up Instructions / Follow-Up Will Discharge to [facility] for Rehab. Schedule follow up appointment with your physician once you discharge to Rehab Continue PT/OT fall precaution Weight bear as tolerated left lower extremity with knee immobilizer on when out of bed and with walking. Use walker to assist with ambulation at all times. Ice to left knee as needed for pain/swelling. Follow up with Dr. Disla/Joey Fu PA-C in 7-10 days. Please call [phone] to schedule appointment. Current Hospital Diet Patient's current hospital diet: AHA Diet (Heart Healthy) Discharge Diet Recommended Diet: AHA Diet (Heart Healthy) Pending Studies Studies pending at discharge: no Medical Emergencies . Who to Call and When: Medical Emergencies: If at any time you feel your situation is an emergency, please call 911 immediately. . Non-Emergent Contact Non-Emergency issues call your: Primary Care Provider Call Non-Emergent contact if: your pain is not controlled, your pain is unusual for you, your pain is concerning you . . "Provider Documentation" section prepared by Pablo Morales. . Event Staff Member Recommendations Event Staff Member Recommendations: Weight bear as tolerated left lower extremity with knee immobilizer on when out of bed and with walking. Use walker to assist with ambulation at all times. Ice to left knee as needed for pain/swelling. Follow up with Dr. Disla/Joey Fu PA-C in 7-10 days. Please call [phone] to schedule appointment. VTE Core Measure Inpt VTE Proph given/why not?: Unfractionated heparin SQ
[2016-08-31 17:37] VITALS: BP 136/76; PULSE 77; TEMP 36.5; O2SAT 92
--- NOTE | 2016-09-01 17:07 | Discharge Summary ---
Discharge Summary Date of Service Sep 01, 2016. Discharge Summary Admission Date: Aug 30, 2016 at 01:23 Discharge Date: Aug 31, 2016 Discharge Disposition: Rehab Principal Diagnosis: S/P Fall/ Ambulatory dysfunction Secondary Diagnoses/Problems: Left Knee pain Hypokalemia Hypothyroidism H/O CVA Chronic Pain Syndrome Depression H/o GI Bleed Consultations: Ortho Medication Reconciliation Continued Medications: Aspirin (Aspirin Ec) 81 Mg Tab 81 MG PO DAILY Bimatoprost (Lumigan) 0.01 % Ro 1 DROPS OPB HS for 30 Days, #2.5 ML 3 Refills Cholecalciferol (Vitamin D3) 2,000 Unit Tab 2000 UNITS PO DAILY Cyanocobalamin (Vitamin B-12 1000 Mcg) 1,000 Mcg Tab 1000 MCG PO QAM, TAB Donepezil HCl (Donepezil HCl) 5 Mg Tab 5 MG PO HS Duloxetine Hcl (Cymbalta) 60 Mg Cap 60 MG PO DAILY, CAP Fish Oil (Whitakers-3) 1 Ea Cap 1 CAP PO DAILY, CAP Gabapentin (Neurontin) 300 Mg Cap 600 MG PO TID, CAP Hctz/Losartan (Hyzaar 25MG/100MG) Tab 1 TAB PO QAM, TAB Ipratropium-Albuterol (Combivent Respimat) 1 Aer Aer 1 PUFFS INH QID PRN for SOB/Wheezing, INH Lactobacillus Acidophilus (Lactinex) Tab 1 TAB PO BIDM, TAB Levothyroxine Sodium (Levothyroxine Sodium) 25 Mcg Tab 25 MCG PO 3XWK TAKE 25 MCG EVERY SATURDAY,SATURDAY AND SATURDAY. Levothyroxine Sodium (Levothyroxine Sodium) 25 Mcg Tab 50 MCG PO 4XWK, TAB TAKE 50 MCG EVERY SATURDAY,SATURDAY,SATURDAY AND SATURDAY. Methadone Hcl (Dolophine) 10 Mg Tab 40 MG PO QAM Methadone Hcl (Dolophine) 10 Mg Tab 30 MG PO QPM/HS Omeprazole (Prilosec) 20 Mg Cap 20 MG PO DAILY, CAP Prednisone (Prednisone) 10 Mg Tab 10 MG PO BID, TAB Tamsulosin Hcl (Flomax) 0.4 Mg Cap 0.4 MG PO BID, CAP Trazodone HCl (Trazodone HCl) 100 Mg Tab 100 MG PO HS Admission Information HPI (per Admitting provider): Patient is a 75 yr old male with PMH of CVA with residual R sided paresthesias, Hypothyroidism, HTN, Polymyalgia rheumatica, chronic pain syndrome, H/O GI bleed and other comorbidities presents to the ED for evaluation after a fall at home. Patient was admitted multiple times recently since May 2016 for Aspiration pneumonia, rectal bleeding, Pt has a history of major stroke in 1996 that left his with loss of mobility of his right side. Pt also has a recent history of admission to [facility] from 06/05-06/09 with rectal bleed. Patient was transfused and ultimately transferred to [place] for further evaluation. recalls that patient received another unit of blood in [place] and had a colonoscopy that revealed upper and lower diverticulitis. Patient was discharged to [facility] and has not had any more episodes of bleeding. The patient is a 75 year old male who presents to the Emergency Room with complaints of persistent bilateral knee pain s/p fall earlier tonight. The patient was discharged form [facility] today, where he was staying as he recovered from a left knee surgery performed by Dr. Gray ([facility]). The patient fell today and has had increased bilateral knee pain. The pain is rated 6/10 in severity. The patient ambulates with a walker. The patient has a history of CVA and has had right-sided numbness since. Physical Exam (per Admitting): Extremities/Musculoskelatal: normal inspection, + pertinent finding (1+ b/l pedal edema, mild left knee tenderness) Neurologic/Psych: alert, normal mood/affect, oriented x 3, + pertinent finding (Grossly no focal deficits, +B/L LE weakness) Skin: normal color, warm/dry, + pertinent finding (Left knee surgical scar intact) Hospital Course Fall/Left Knee pain/Ambulatory dysfunction H/O right sided weakness from prior CVA Knee X ray: No obvious fractures.Soft tissue swelling and joint effusion Continue PT/OT Fall precautions Ortho consulted recommendation No fluid aspiration at this time due to risk of infection since Pt had knee replacement done on 05/09/16. Weight bear as tolerated left lower extremity with knee immobilizer on when out of bed and with walking. Use walker to assist with ambulation at all times. Ice to left knee as needed for pain/swelling. Follow up with Dr. Disla/Joey Fu PA-C in 7-10 days. Please call [phone] to schedule appointment. Will discharge today to [facility] for rehab Hypokalemia On Hyzaar at home continue monitor stable Hypothyroidism: Continue levothyroxine H/O CVA s/p CVA 1996; has residual R sided paresthesia and chronic nerve pain Continue ASA H/O GI Bleed: stable Chronic Pain syndrome: Continue home meds Depression: Stable Continue Cymbalta DVT Px: Heparin SQ Code Status: Full code Disposition: Will Discharge to [facility] for Rehab. Weight bear as tolerated left lower extremity with knee immobilizer on when out of bed and with walking. Use walker to assist with ambulation at all times. Ice to left knee as needed for pain/swelling. Follow up with Dr. Disla/Joey Fu PA-C in 7-10 days. Please call [phone] to schedule appointment. Total time spent on discharge = 35 min This includes examination of the patient, discharge planning, medication reconciliation, and communication with other providers. Discharge Instructions Discharge Instructions Date of Service Aug 31, 2016. Admission Reason for Admission: FALL Discharge Discharge Diagnosis / Problem: S/P Fall/Ambulatory Dysfunction, Hypothyroidism , Hypokalemia Discharge Goals Goal(s): Decrease discomfort, Improve function, Improve disease control Activity Recommendations Activity Limitations: resume your previous activity (as tolerated) . Instructions / Follow-Up Instructions / Follow-Up Will Discharge to [facility] for Rehab. Schedule follow up appointment with your physician once you discharge to Rehab Continue PT/OT fall precaution Weight bear as tolerated left lower extremity with knee immobilizer on when out of bed and with walking. Use walker to assist with ambulation at all times. Ice to left knee as needed for pain/swelling. Follow up with Dr. Disla/Joey Fu PA-C in 7-10 days. Please call [phone] to schedule appointment. Current Hospital Diet Patient's current hospital diet: AHA Diet (Heart Healthy) Discharge Diet Recommended Diet: AHA Diet (Heart Healthy) Pending Studies Studies pending at discharge: no Medical Emergencies . Who to Call and When: Medical Emergencies: If at any time you feel your situation is an emergency, please call 911 immediately. . Non-Emergent Contact Non-Emergency issues call your: Primary Care Provider Call Non-Emergent contact if: your pain is not controlled, your pain is unusual for you, your pain is concerning you . . "Provider Documentation" section prepared by Pablo Morales. . Tire Vulcanizer Recommendations Tire Vulcanizer Recommendations: Weight bear as tolerated left lower extremity with knee immobilizer on when out of bed and with walking. Use walker to assist with ambulation at all times. Ice to left knee as needed for pain/swelling. Follow up with Dr. Disla/Joey Fu PA-C in 7-10 days. Please call [phone] to schedule appointment. VTE Core Measure Inpt VTE Proph given/why not?: Unfractionated heparin SQ Additional Copies To Chi Meyers M.D.(CYNTHIA) [facility]
[2016-10-11] MEDS ORDERED: MELA1TAB5 PO (08:06)
[2016-10-11] MEDS ORDERED: DONE1TAB11 PO (08:06)
[2016-10-11] MEDS ORDERED: MTH10 PO (08:06)
[2016-10-11] MEDS ORDERED: LEVO25TA5 PO (08:06)
[2016-10-11] MEDS ORDERED: HYZ/10015 PO (08:06)
[2016-10-11] MEDS ORDERED: CLB100 PO (08:06)
[2016-10-11] MEDS ORDERED: MOML PO (08:06)
[2017-01-08] MEDS ORDERED: GABA600T PO (07:48)
[2017-01-08] MEDS ORDERED: CYAN10005 PO (07:48)
[2017-01-08] MEDS ORDERED: BIMA0.01 OP (07:48)
[2017-01-08] MEDS ORDERED: METH10TA2 PO (07:48)
[2017-01-08] MEDS ORDERED: SODIENE PR (07:48)
[2017-01-08] MEDS ORDERED: MULT-506 PO (07:48)
[2017-01-08] MEDS ORDERED: LACTCAP3 PO (07:48)
[2017-01-08] MEDS ORDERED: BISA10SU3 PR (07:48)
[2017-01-08] MEDS ORDERED: IPRASOL4 INH (07:48)
[2017-01-08] MEDS ORDERED: AMLO-114 PO (07:48)
[2017-01-08] MEDS ORDERED: MELO15TA4 PO (07:48)
[2017-01-08] MEDS ORDERED: TRAZ100T29 PO (07:48)
[2017-01-08] MEDS ORDERED: ACET-1311 PO (07:48)
[2017-01-08] MEDS ORDERED: LEVO25TA5 PO (07:48)
[2017-01-08] MEDS ORDERED: TRAV0.00 OP (07:48)
[2017-01-28] MEDS ORDERED: BROM0.0911 OPR (14:38)
[2017-01-28] MEDS ORDERED: BUME1TAB42 PO (14:40)
[2017-01-28] MEDS ORDERED: POTA10CA28 PO (14:45)
[2017-01-28] MEDS ORDERED: BRIN3SUS OPR (14:49)
[2017-01-28] MEDS ORDERED: CPROT OPR (14:51)
[2017-01-28] MEDS ORDERED: PRED1SUS17 OP (14:51)
[2017-01-31] MEDS ORDERED: LVQ750 PO ×2 (10:45→10:58)
[2017-03-12] MEDS ORDERED: BROM1SOL8 OPR (15:30)
[2017-03-12] MEDS ORDERED: LEVO1TAB33 PO (15:31)
== END 2016-08-31 18:26 ==
LOC: ENRESERVDT → ENRESERVTM → EDBD 20:36 → C.EDC 20:37 → C.MSW 08-30 01:23
PROVIDERS: ADMIT Internal Medicine; ATTEND Internal Medicine
DX: M25.562 Pain in left knee (principal); M25.561 Pain in right knee; D50.9 Iron deficiency anemia, unspecified; W19.XXXA Unspecified fall, initial encounter; G89.4 Chronic pain syndrome; R53.1 Weakness; I69.998 Other sequelae following unspecified cerebrovascular disease; J44.9 Chronic obstructive pulmonary disease, unspecified; E03.9 Hypothyroidism, unspecified; D47.2 Monoclonal gammopathy; F32.9 Major depressive disorder, single episode, unspecified; E87.6 Hypokalemia; M35.3 Polymyalgia rheumatica; Z83.3 Family history of diabetes mellitus; Z83.79 Family history of other diseases of the digestive system; Z82.49 Family history of ischemic heart disease and other diseases of the circulatory system; Z84.1 Family history of disorders of kidney and ureter; Z83.6 Family history of other diseases of the respiratory system; Z81.0 Family history of intellectual disabilities; Z82.3 Family history of stroke; Z79.82 Long term (current) use of aspirin; Z79.899 Other long term (current) drug therapy

== ENCOUNTER → 2016-09-24 | Outpatient (CLI) | payer BC ==
[~2016-09-24] MED LIST changes: +ACET-1311 PO; +AMLO-114 PO; +BIMA0.01 OP; +BISA10SU3 PR; +BRIN3SUS OPR; +BROM0.0911 OPR; +BROM1SOL8 OPR; +BUME1TAB42 PO; +CEPH500C2 PO; +CLB100 PO; +CPRDOTS OT; +CPROT OPR; +CYAN10005 PO; -DOCU-94 PO; +DONE1TAB11 PO; -FINA5TAB4 PO; +GABA600T PO; +IPRASOL4 INH; +LACTCAP3 PO; +LEVO1TAB33 PO; +LVQ750 PO; +MELA1TAB5 PO; +MELO15TA4 PO; +MOML PO; +MTH10 PO; +MULT-506 PO; +POTA10CA28 PO; +PRED1SUS17 OP; +SODIENE PR; +TRAV0.00 OP; +TRAZ100T29 PO
== END | disposition home or self-care (01) ==
LOC: C.RDSM 10:56
PROVIDERS: ATTEND Physical Medicine & Rehabilitation Sports Medicine
DX: Z96.652 Presence of left artificial knee joint (principal)

== ENCOUNTER → 2016-10-15 | Day surgery (SDC) | payer BC ==
[2016-10-11 08:07] VITALS: Ht 188 cm; Wt 130.0 kg
[~2016-10-15] VITALS: Ht 188 cm; Wt 130.0 kg
[~2016-10-15] MED LIST changes: +500ML BSS 0.3ML EPI 1:1000PF IRRIG ONE; +ACETAMINOPHEN 325 MG TAB PO PRN; +AMVISC PLUS 0.8ML SYRINGE INT OCU ONE; -ARC5 PO; +ATROPINE SULFATE 0.1 MG/ML 5ML SYR IV PRN; -BIMA0.01 OPB; +BRIMONIDINE TART 0.2% OP SOLN PER DROP CHARGE ONE; +BSS FLUSH ONE; -CYAN10004 PO; -DSY100 PO; +ENDOCOAT 0.85ML SYRINGE INT OCU ONE; +EpHEDrine SULFATE INJ 50 MG/ML AMP IV PRN; +EpINEphrine INJ 1MG/ML AMP 1 MG/ML AMP ONE; +LACTATED RINGER'S 1000ML 500 ML IV SCH; +LIDOCAINE 4% OP SOLN DROP CHARGE ONE; +LIDOCAINE 4% OP SOLN DROP CHARGE OPL SCH; +LIDOCAINE HCL 1% MPF 2 ML VIAL ONE; +MIDAZOLAM HCL 1 MG/ML 2ML VIAL ONE; +MIX: 3ML BSS AND 1ML EPI(PF) TOP ONE; +MOXIFLOXACIN OPH SOLN PER DROP CHARGE ONE; +POVIDONE-IODINE OP SOLN 30 ML BTL ONE; +PROPARACAINE 0.5% OP SOLN PER DROP CHARGE OPL SCH; +TOBRAMYCIN/DEXAMETHASONE OPH OINT PER APPLN CHARGE ONE
[2016-10-15] MEDS: PHENYLEPHRINE HCL 2.5% OP SOLN PER DROP CHARGE OPL SCH ×2 (07:49→07:57)
[2016-10-15] MEDS: TROPICAMIDE 1% OP SOLN PER DROP CHARGE OPL SCH ×2 (07:51→07:58)
[2016-10-15] MEDS: CYCLOPENTOLATE HCL 1% OP SOLN PER DROP CHARGE OPL SCH ×2 (07:52→07:58)
[2016-10-15] MEDS: KETOROLAC 0.5% OP SOLN PER DROP CHARGE OPL SCH ×2 (07:53→07:59)
[2016-10-15] MEDS: MOXIFLOXACIN OPH SOLN PER DROP CHARGE OPL SCH ×2 (07:55→08:02)
--- NOTE | 2016-10-15 08:06 | History & Physical Bridge - SC ---
H&P Re-Evaluation Bridge Note: I have examined the patient, reviewed the History & Physical and in the interval since the performance of the History & Physical I have noted the following changes of clinical significance: No changes noted
--- NOTE | 2016-10-15 08:58 | Discharge Instructions-SurgCtr ---
Discharge Instructions Date of Service Oct 15, 2016. Visit Reason for Visit: Cataract Left Eye Discharge Discharge Diagnosis / Problem: cataract left eye Discharge Goals Goal(s): Improve function Activity Recommendations Activity Limitations: per Instructions/Follow-up section Lifting Limitations: no more than 5 pounds Anesthesia . Post Anesthesia Instructions: If you have had General Anesthesia or IV Sedation: * Do not drive today. * Resume driving when surgeon permits. * Do not make important decisions or sign legal documents today. * Call surgeon for: 1. Temperature elevations greater than 101 degrees F. 2. Uncontrollable pain. 3. Excessive bleeding. 4. Persistent nausea and vomiting. 5. Medication intolerance (nausea, vomiting or rash). * For nausea and vomiting use only clear liquids such as: tea, soda, bouillon until nausea subsides, then gradually increase diet as tolerated. * If you have any concerns or questions, call your surgeon's office. If physician is unavailable and it is an emergency, call 911 or go to the nearest emergency room. . Instructions / Follow-Up Instructions / Follow-Up ACTIVITY RECOMMENDATIONS: * Light activities * You may walk outside, read, watch television. * Mild irritation and blurred vision are common for the first few days, redness around the white part of the eye is common. MEDICATIONS: Resume previous medications unless instructed otherwise by your surgeon. Eye drops (today and tomorrow): Cipro - one drop in operative eye every 2 hours while awake Prednisolone 1% - one drop in operative eye every 2 hours while awake Bromfenac - one drop in operative eye once daily SPECIAL CARE INSTRUCTIONS: * If any problems or concerns, please call Dr. Gore's office at . * Keep plastic shield taped over eye to sleep at night. * Keep plastic shield taped over eye except to administer eye drops. * Keep plastic shield on until office visit the following day. FOLLOW UP VISIT: Follow-up with Dr. Gore in the [place] office as scheduled. If not already scheduled, please call the office at . Diet Recommendations Home Diet: resume previous diet Procedures Procedures Performed: Left Cataract Phacoemulsification With Intraocular Lens Implant Pending Studies Studies pending at discharge: no Medical Emergencies . Who to Call and When: Medical Emergencies: If at any time you feel your situation is an emergency, please call 911 immediately. . Non-Emergent Contact Non-Emergency issues call your: [employer] . . "Provider Documentation" section prepared by Hieu Gore. .
[2016-10-15 08:59] VITALS: TEMP 36.7
--- NOTE | 2016-10-15 08:59 | [facility] Post Operative Brief Note ---
Immediate Operative Summary Operative Date Oct 15, 2016. Pre-Operative Diagnosis Cataract left eye Post-Operative Diagnosis same Procedure(s) Performed Left Cataract Phacoemulsification With Intraocular Lens Implant Surgeon Dr Gore It Quality Assurance Analyst Surgeon(s) 0 Estimated Blood Loss 0 Findings cataract left eye Specimens 0 Complication(s) None Disposition Recovery Room / PACU
[2016-10-15 09:30] VITALS: BP 157/77; PULSE 82; O2SAT 94
--- NOTE | 2016-10-15 09:36 | Anesthesia Progress Nt - [facility] ---
Anesthesia Post Op Note Date & Time Oct 15, 2016 at 09:36 Vital Signs Pain Intensity: 0 Vital Signs Past 12 Hours Date Time Temp Pulse Resp B/P (MAP) Pulse Ox O2 Delivery O2 Flow Rate FiO2 10/15/16 09:30 82 18 157/77 (103) 94 Room Air 10/15/16 08:59 36.7 67 16 147/68 (94) 94 Room Air 10/15/16 07:44 36.5 69 22 169/81 (110) 95 Room Air Notes Mental Status: alert / awake / arousable, participated in evaluation Pt Amnestic to Procedure: Yes Nausea / Vomiting: adequately controlled Pain: adequately controlled Airway Patency, RR, SpO2: stable & adequate BP & HR: stable & adequate Hydration State: stable & adequate Anesthetic Complications: no major complications apparent
--- NOTE | 2016-10-15 11:00 | OPERATIVE REPORT ---
DATE OF OPERATION: 10/15/2016 PREOPERATIVE DIAGNOSIS: Cataract, left eye. POSTOPERATIVE DIAGNOSIS: Cataract, left eye. PROCEDURE: Phacoemulsification cataract extraction with intraocular lens placement, left eye. SURGEON: Dr. Gore. COMPLICATIONS: None. ESTIMATED BLOOD LOSS: None. ANESTHESIA: Topical with sedation. DESCRIPTION OF PROCEDURE: After informed consent was obtained in the holding area the patient was wheeled back to the Operating Room where cardiac monitoring leads and oxygen by nasal cannula was administered by Anesthesia. Gentle IV sedation was given, and the patient's left eye was prepped and draped in usual sterile fashion. A wire lid speculum was placed into the left eye and the operating microscope was swung into position. Using 0.12 forceps and a Supersharp blade a paracentesis port was made 3 o'clock hours away from the 3 o'clock position of patient's left eye. 1% non-preserved Lidocaine was then injected into the anterior chamber for anesthesia. A 2.2 mm keratotome blade was then used to make a shelved clear corneal incision at the 3 o'clock position of his left eye. Amvisc was injected into the anterior chamber and a cystotome and Utrata forceps were used to perform a curvilinear capsulorrhexis. BSS on a hydrodissection cannula was used to hydrodissect the lens nucleus away from the capsular bag. The phacoemulsification handpiece was then used in a stop and chop fashion to remove the lens nucleus. The irrigation and aspiration handpiece was then used to remove the residual cortical material. Amvisc was injected into the capsular bag and anterior chamber and a Bausch [employer] Lomb MX60 20.5 Diopter intraocular lens was injected into the capsular bag. Irrigation and aspiration handpiece was used to remove the residual viscoelastic material. The wounds were hydrated and noted to be watertight. The wire lid speculum was removed from the eye. Vigamox, Brimonidine, and TobraDex ointment were placed on the eye and it was shielded. It should be noted that EndoCoat was used during the case to protect the cornea endothelium. DISPOSITION: The patient tolerated the procedure well and was wheeled to the post anesthesia care unit in stable condition. I attest to the content of the Intraoperative Record and any orders documented therein. Any exceptions are noted below. I attest to the content of the Intraoperative Record and any orders documented therein. Any exception s are noted below.
== END | disposition home or self-care (01) ==
LOC: X.SURG 07:16
PROVIDERS: ATTEND Ophthalmology
DX: H26.9 Unspecified cataract (principal); G47.33 Obstructive sleep apnea (adult) (pediatric); I10 Essential (primary) hypertension; Z86.73 Personal history of transient ischemic attack (TIA), and cerebral infarction without residual deficits; Z98.890 Other specified postprocedural states; Z96.652 Presence of left artificial knee joint; Z87.891 Personal history of nicotine dependence; E66.9 Obesity, unspecified

== ENCOUNTER → 2016-10-19 | Outpatient (CLI) | payer BC ==
[~2016-10-19] MED LIST changes: -500ML BSS 0.3ML EPI 1:1000PF IRRIG ONE; -ACETAMINOPHEN 325 MG TAB PO PRN; -AMVISC PLUS 0.8ML SYRINGE INT OCU ONE; -ATROPINE SULFATE 0.1 MG/ML 5ML SYR IV PRN; -BRIMONIDINE TART 0.2% OP SOLN PER DROP CHARGE ONE; -BSS FLUSH ONE; -ENDOCOAT 0.85ML SYRINGE INT OCU ONE; -EpHEDrine SULFATE INJ 50 MG/ML AMP IV PRN; -EpINEphrine INJ 1MG/ML AMP 1 MG/ML AMP ONE; -LACTATED RINGER'S 1000ML 500 ML IV SCH; -LIDOCAINE 4% OP SOLN DROP CHARGE ONE; -LIDOCAINE 4% OP SOLN DROP CHARGE OPL SCH; -LIDOCAINE HCL 1% MPF 2 ML VIAL ONE; -MIDAZOLAM HCL 1 MG/ML 2ML VIAL ONE; -MIX: 3ML BSS AND 1ML EPI(PF) TOP ONE; -MOXIFLOXACIN OPH SOLN PER DROP CHARGE ONE; -POVIDONE-IODINE OP SOLN 30 ML BTL ONE; -PROPARACAINE 0.5% OP SOLN PER DROP CHARGE OPL SCH; -TOBRAMYCIN/DEXAMETHASONE OPH OINT PER APPLN CHARGE ONE
[2016-10-19 10:14] LABS: HEMATOCRIT 33.5 % (42-52); MEAN CELL VOLUME 77.4 fL (80-100); MEAN CORPUSCULAR HEMOGLOBIN 23.1 pg (25-34); MEAN CORPUSCULAR HGB CONC 29.9 g/dl (32-36); MEAN PLATELET VOLUME 10.4 fL (7.4-10.4); PLATELET COUNT 240 K/uL (130-400); RED BLOOD COUNT 4.33 M/uL (4.7-6.1); WHITE BLOOD COUNT 9.85 K/uL (4.8-10.8)
[2016-10-19 10:28] LABS: ALT/SGPT 18 U/L (12-78); BLOOD UREA NITROGEN 17 mg/dl (7-18); BUN/CREATININE RATIO 17.1 (10-20); CARBON DIOXIDE 32 mmol/L (21-32); CHLORIDE 101 mmol/L (98-107); GLUCOSE 148 mg/dl (70-99); POTASSIUM 3.6 mmol/L (3.5-5.1); SODIUM 142 mmol/L (136-145)
[2016-10-19 10:39] LABS: ALB/GLOB RATIO 0.6 (0.9-2); ALKALINE PHOSPHATASE 68 U/L (45-117); AST/SGOT 8 U/L (15-37); THYROID STIMULATING HORMONE 0.743 uIu/ml (0.300-4.500)
[2016-10-19 11:28] LABS: CALCIUM 8.6 mg/dl (8.5-10.1)
== END ==
LOC: C.LABUPNIT 09:17
PROVIDERS: ATTEND Family Medicine
DX: I63.59 Cerebral infarction due to unspecified occlusion or stenosis of other cerebral artery (principal); J44.9 Chronic obstructive pulmonary disease, unspecified; E03.9 Hypothyroidism, unspecified

== ENCOUNTER → 2016-10-29 | Outpatient (CLI) | payer BC ==
[~2016-10-29] MED LIST changes: -BROM1SOL8 OPR; -LEVO1TAB33 PO
[2016-10-29 10:59] LABS: HEMATOCRIT 33.1 % (42-52)
== END | disposition home or self-care (01) ==
LOC: C.LABUPNIT 08:20
PROVIDERS: ATTEND Family Medicine
DX: I63.50 Cerebral infarction due to unspecified occlusion or stenosis of unspecified cerebral artery (principal)

== ENCOUNTER → 2016-11-17 | Outpatient (CLI) | payer BC ==
[2016-11-17 20:08] LABS: BASO % 0.2 %; BASO ABS # 0.03 K/uL (0-0.2); COMPLETE YES; EOS % 2.5 %; HEMATOCRIT 35.4 % (42-52); IG% 0.7 %; LYMPH % 6.9 %; LYMPH ABS # 0.95 K/uL (1.2-3.4); MEAN CELL VOLUME 76.8 fL (80-100); MEAN CORPUSCULAR HEMOGLOBIN 23.2 pg (25-34); MEAN CORPUSCULAR HGB CONC 30.2 g/dl (32-36); MEAN PLATELET VOLUME 10.3 fL (7.4-10.4); MONO % 6.2 %; NEUT % 83.5 %; PLATELET COUNT 240 K/uL (130-400); RED BLOOD COUNT 4.61 M/uL (4.7-6.1); WHITE BLOOD COUNT 13.84 K/uL (4.8-10.8)
[2016-11-17 20:25] LABS: BLOOD UREA NITROGEN 20 mg/dl (7-18); BUN/CREATININE RATIO 18.1 (10-20); CALCIUM 8.8 mg/dl (8.5-10.1); CARBON DIOXIDE 36 mmol/L (21-32); CHLORIDE 100 mmol/L (98-107); GLUCOSE 100 mg/dl (70-99); POTASSIUM 3.5 mmol/L (3.5-5.1); SODIUM 141 mmol/L (136-145)
== END | disposition home or self-care (01) ==
LOC: C.LABUPNIT 11:57
PROVIDERS: ATTEND Family Medicine
DX: J44.9 Chronic obstructive pulmonary disease, unspecified (principal)

== ENCOUNTER → 2016-11-19 | Outpatient (CLI) | payer BC | LOC: C.LABUPNIT 08:58 | PROVIDERS: ATTEND Nurse Practitioner Family | DX: J44.9 Chronic obstructive pulmonary disease, unspecified (principal) ==

== ENCOUNTER → 2016-11-22 | Outpatient (CLI) | payer BC ==
[2016-11-22 09:58] LABS: BASO % 0.2 %; BASO ABS # 0.02 K/uL (0-0.2); COMPLETE YES; EOS % 0.4 %; HEMATOCRIT 35.7 % (42-52); LYMPH % 10.3 %; LYMPH ABS # 1.04 K/uL (1.2-3.4); MEAN CELL VOLUME 76.6 fL (80-100); MEAN CORPUSCULAR HEMOGLOBIN 23.6 pg (25-34); MEAN CORPUSCULAR HGB CONC 30.8 g/dl (32-36); MEAN PLATELET VOLUME 10.1 fL (7.4-10.4); MONO % 5.2 %; NEUT % 81.9 %; PLATELET COUNT 247 K/uL (130-400); RED BLOOD COUNT 4.66 M/uL (4.7-6.1); WHITE BLOOD COUNT 10.13 K/uL (4.8-10.8)
== END ==
LOC: C.LABUPNIT 09:27
PROVIDERS: ATTEND Family Medicine
DX: D64.9 Anemia, unspecified (principal)

== ENCOUNTER → 2017-01-17 | Outpatient (CLI) | payer BC ==
[~2017-01-17] MED LIST changes: -GABA-113 PO
[2017-01-17 10:01] LABS: BLOOD UREA NITROGEN 23 mg/dl (7-18); BUN/CREATININE RATIO 22.9 (10-20); CALCIUM 9.2 mg/dl (8.5-10.1); CARBON DIOXIDE 34 mmol/L (21-32); CHLORIDE 101 mmol/L (98-107); CREATININE 0.99 mg/dl (0.60-1.40); GLUCOSE 137 mg/dl (70-99); POTASSIUM 3.5 mmol/L (3.5-5.1); SODIUM 142 mmol/L (136-145)
== END | disposition home or self-care (01) ==
LOC: C.LABUPNIT 08:57
PROVIDERS: ATTEND Nurse Practitioner Family
DX: E87.6 Hypokalemia (principal); D50.9 Iron deficiency anemia, unspecified

== ENCOUNTER → 2017-01-21 | Day surgery (SDC) | payer BC ==
[2017-01-08 07:50] VITALS: Ht 188 cm; Wt 141.4 kg
[~2017-01-21] VITALS: Ht 188 cm; Wt 141.4 kg
[~2017-01-21] MED LIST changes: +500ML BSS 0.3ML EPI 1:1000PF IRRIG ONE; +ACETAMINOPHEN 325 MG TAB PO PRN; +AMVISC PLUS 0.8ML SYRINGE INT OCU ONE; +ATROPINE SULFATE 0.1 MG/ML 5ML SYR IV PRN; +BRIMONIDINE TART 0.2% OP SOLN PER DROP CHARGE ONE; +BSS FLUSH ONE; +ENDOCOAT 0.85ML SYRINGE INT OCU ONE; +EpHEDrine SULFATE INJ 50 MG/ML AMP IV PRN; +EpINEphrine INJ 1MG/ML AMP 1 MG/ML AMP ONE; +LACTATED RINGER'S 1000ML 500 ML IV SCH; +LIDOCAINE 4% OP SOLN DROP CHARGE ONE; +LIDOCAINE 4% OP SOLN DROP CHARGE OPR SCH; +LIDOCAINE HCL 1% MPF 2 ML VIAL ONE; +MIDAZOLAM HCL 1 MG/ML 2ML VIAL ONE; +MOXIFLOXACIN OPH SOLN PER DROP CHARGE ONE; +ONDANSETRON INJ 2 MG/ML 2 ML VIAL IV PRN; +POVIDONE-IODINE OP SOLN 30 ML BTL ONE; +PROPARACAINE 0.5% OP SOLN PER DROP CHARGE OPR SCH; +TOBRAMYCIN/DEXAMETHASONE OPH OINT PER APPLN CHARGE ONE
[2017-01-21] MEDS: PHENYLEPHRINE HCL 2.5% OP SOLN PER DROP CHARGE OPR SCH ×2 (11:11→11:21)
[2017-01-21] MEDS: TROPICAMIDE 1% OP SOLN PER DROP CHARGE OPR SCH ×2 (11:12→11:23)
[2017-01-21] MEDS: CYCLOPENTOLATE HCL 1% OP SOLN PER DROP CHARGE OPR SCH ×2 (11:13→11:24)
[2017-01-21] MEDS: KETOROLAC 0.5% OP SOLN PER DROP CHARGE OPR SCH ×2 (11:15→11:25)
[2017-01-21] MEDS: MOXIFLOXACIN OPH SOLN PER DROP CHARGE OPR SCH ×2 (11:20→11:30)
--- NOTE | 2017-01-21 12:19 | Discharge Instructions-SurgCtr ---
Discharge Instructions Date of Service Jan 21, 2017. Visit Reason for Visit: Cataract Right Eye Discharge Discharge Diagnosis / Problem: cataract right eye Discharge Goals Goal(s): Improve function Activity Recommendations Activity Limitations: per Instructions/Follow-up section Lifting Limitations: no more than 5 pounds Anesthesia . Post Anesthesia Instructions: If you have had General Anesthesia or IV Sedation: * Do not drive today. * Resume driving when surgeon permits. * Do not make important decisions or sign legal documents today. * Call surgeon for: 1. Temperature elevations greater than 101 degrees F. 2. Uncontrollable pain. 3. Excessive bleeding. 4. Persistent nausea and vomiting. 5. Medication intolerance (nausea, vomiting or rash). * For nausea and vomiting use only clear liquids such as: tea, soda, bouillon until nausea subsides, then gradually increase diet as tolerated. * If you have any concerns or questions, call your surgeon's office. If physician is unavailable and it is an emergency, call 911 or go to the nearest emergency room. . Instructions / Follow-Up Instructions / Follow-Up ACTIVITY RECOMMENDATIONS: * Light activities * You may walk outside, read, watch television. * Mild irritation and blurred vision are common for the first few days, redness around the white part of the eye is common. MEDICATIONS: Resume previous medications unless instructed otherwise by your surgeon. Eye drops (today and tomorrow): Cipro - one drop in operative eye every 2 hours while awake Prednisolone 1% - one drop in operative eye every 2 hours while awake Bromfenac - one drop in operative eye once daily SPECIAL CARE INSTRUCTIONS: * If any problems or concerns, please call Dr. Gore's office at . * Keep plastic shield taped over eye to sleep at night. * Keep plastic shield taped over eye except to administer eye drops. * Keep plastic shield on until office visit the following day. FOLLOW UP VISIT: Follow-up with Dr. Gore in the [place] office as scheduled. If not already scheduled, please call the office at . Diet Recommendations Home Diet: resume previous diet Procedures Procedures Performed: Right Cataract Phacoemulsification With Intraocular Lens Implant Pending Studies Studies pending at discharge: no Medical Emergencies . Who to Call and When: Medical Emergencies: If at any time you feel your situation is an emergency, please call 911 immediately. . Non-Emergent Contact Non-Emergency issues call your: Biological Scientist . . "Provider Documentation" section prepared by Hieu Gore. .
--- NOTE | 2017-01-21 12:21 | [facility] Operative Report ---
Operative Report Operative Date Jan 21, 2017. Pre-Operative Diagnosis Right Eye Cataract Post-Operative Diagnosis Same Procedure(s) Performed Right Cataract Phacoemulsification With Intraocular Lens Implant Surgeon [facility] Office Manager Surgeon(s) None Estimated Blood Loss 0ml Findings cataract right eye Fluids (cc crystalloids) see anesthesia record Specimens None Drains none Anesthesia local with sedation Complication(s) None Disposition Recovery Room / PACU Implants [id number] 21.0 Indications decreased vision right eye Description of Procedure After informed consent was obtained in the holding area the patient was wheeled back to the operating room where cardiac monitoring leads and oxygen by nasal cannula was administered by Anesthesia. Gentle IV sedation was given, and the patient's right eye was prepped and draped in usual sterile fashion. A wire lid speculum was placed into the right eye and the operating microscope was swung into position. Using 0.12 forceps and a Supersharp blade a paracentesis port was made 2 o'clock hours away from the 9 o'clock position of the patient's right eye. 1% non-preserved Lidocaine was then injected into the anterior chamber for anesthesia. A 2.0 mm keratotome blade was then used to make a shelved clear corneal incision at the 9 o'clock position of the right eye. Amvisc was injected into the anterior chamber and a cystotome and Utrata forceps were used to perform a curvilinear capsulorrhexis. BSS on a hydrodissection cannula was used to hydrodissect the lens nucleus away from the capsular bag. The phacoemulsification handpiece was then used in a stop and chop fashion to remove the lens nucleus. The irrigation and aspiration handpiece was then used to remove the residual cortical material. Amvisc was injected into the capsular bag and anterior chamber and a [employer] MX60 21.0 Diopter intraocular lens was injected into the capsular bag. Irrigation and aspiration handpiece was used to remove the residual viscoelastic material. The wounds were hydrated and noted to be watertight. The wire lid speculum was removed from the eye. Vigamox, Brimonidine, and TobraDex ointment were placed on the eye and it was shielded. It should be noted that EndoCoat was used extensively during the case to protect the cornea endothelium. DISPOSITION: The patient tolerated the procedure well and was wheeled to the post anesthesia care unit in stable condition. I attest to the content of the Intraoperative Record and any orders documented therein. Any exceptions are noted below. I attest to the content of the Intraoperative Record and any orders documented therein. Any exceptions are noted below.
[2017-01-21 12:55] VITALS: BP 162/83; PULSE 69; O2SAT 93
--- NOTE | 2017-01-21 13:15 | Anesthesia Progress Nt - [facility] ---
Anesthesia Post Op Note Date & Time Jan 21, 2017 at 13:15 Vital Signs Pain Intensity: 0 Vital Signs Past 12 Hours Date Time Temp Pulse Resp B/P (MAP) Pulse Ox O2 Delivery O2 Flow Rate FiO2 01/21/17 12:55 69 16 162/83 (109) 93 Room Air 01/21/17 12:18 36.8 66 16 173/84 (113) 93 Room Air 01/21/17 10:30 36.6 68 16 144/80 (101) 96 Room Air Notes Mental Status: alert / awake / arousable, participated in evaluation Pt Amnestic to Procedure: Yes Nausea / Vomiting: adequately controlled Pain: adequately controlled Airway Patency, RR, SpO2: stable & adequate BP & HR: stable & adequate Hydration State: stable & adequate Anesthetic Complications: no major complications apparent
== END | disposition home or self-care (01) ==
LOC: X.SURG 10:03
PROVIDERS: ATTEND Ophthalmology
DX: H25.11 Age-related nuclear cataract, right eye (principal); I10 Essential (primary) hypertension; E03.9 Hypothyroidism, unspecified; D64.9 Anemia, unspecified; Z87.891 Personal history of nicotine dependence; Z79.82 Long term (current) use of aspirin; Z79.899 Other long term (current) drug therapy

== ENCOUNTER → 2017-01-21 | Outpatient (CLI) | payer BC ==
[~2017-01-21] MED LIST changes: -500ML BSS 0.3ML EPI 1:1000PF IRRIG ONE; -ACETAMINOPHEN 325 MG TAB PO PRN; -AMVISC PLUS 0.8ML SYRINGE INT OCU ONE; -ATROPINE SULFATE 0.1 MG/ML 5ML SYR IV PRN; -BRIMONIDINE TART 0.2% OP SOLN PER DROP CHARGE ONE; -BSS FLUSH ONE; -ENDOCOAT 0.85ML SYRINGE INT OCU ONE; -EpHEDrine SULFATE INJ 50 MG/ML AMP IV PRN; -EpINEphrine INJ 1MG/ML AMP 1 MG/ML AMP ONE; -LACTATED RINGER'S 1000ML 500 ML IV SCH; -LIDOCAINE 4% OP SOLN DROP CHARGE ONE; -LIDOCAINE 4% OP SOLN DROP CHARGE OPR SCH; -LIDOCAINE HCL 1% MPF 2 ML VIAL ONE; -MIDAZOLAM HCL 1 MG/ML 2ML VIAL ONE; -MOXIFLOXACIN OPH SOLN PER DROP CHARGE ONE; -ONDANSETRON INJ 2 MG/ML 2 ML VIAL IV PRN; -POVIDONE-IODINE OP SOLN 30 ML BTL ONE; -PROPARACAINE 0.5% OP SOLN PER DROP CHARGE OPR SCH; -TOBRAMYCIN/DEXAMETHASONE OPH OINT PER APPLN CHARGE ONE
[2017-01-21 08:26] LABS: BLOOD UREA NITROGEN 24 mg/dl (7-18); BUN/CREATININE RATIO 20.3 (10-20); CALCIUM 8.9 mg/dl (8.5-10.1); CARBON DIOXIDE 37 mmol/L (21-32); CHLORIDE 99 mmol/L (98-107); GLUCOSE 87 mg/dl (70-99); POTASSIUM 3.4 mmol/L (3.5-5.1); SODIUM 142 mmol/L (136-145)
== END | disposition home or self-care (01) ==
LOC: C.LABUPNIT 07:51
PROVIDERS: ATTEND Nurse Practitioner Family
DX: E03.9 Hypothyroidism, unspecified (principal); I10 Essential (primary) hypertension

== ENCOUNTER 2017-01-28 14:09 | Inpatient (IN) | payer BC, OTHER ==
[~2017-01-28] VITALS: Ht 188 cm; Wt 145.0 kg
[~2017-01-28 14:09] MED LIST changes: -BRIN3SUS OPR; -BROM0.0911 OPR; -BUME1TAB42 PO; -CEPH500C2 PO; -CPRDOTS OT; -CPROT OPR; -LCTX PO; -LVQ750 PO; -POTA10CA28 PO; -PRED1SUS17 OP
[2017-01-28] MEDS ORDERED: LCTX PO (14:37)
[2017-01-28] MEDS ORDERED: BROM0.0911 OPR ×2 (14:38)
[2017-01-28] MEDS ORDERED: BUME1TAB42 PO ×2 (14:40)
[2017-01-28] MEDS ORDERED: HYZ/10015 PO (14:41)
[2017-01-28] MEDS ORDERED: POTA10CA28 PO ×2 (14:45)
[2017-01-28] MEDS ORDERED: CEPH500C2 PO (14:47)
[2017-01-28] MEDS ORDERED: BRIN3SUS OPR ×2 (14:49)
[2017-01-28] MEDS ORDERED: CPRDOTS OT (14:51)
[2017-01-28] MEDS ORDERED: CPROT OPR ×2 (14:51)
[2017-01-28] MEDS ORDERED: PRED1SUS17 OP ×2 (14:51)
[2017-01-28 15:11] LABS: BASO % 0.1 %; BASO ABS # 0.02 K/uL (0-0.2); COMPLETE YES; EOS % 0.9 %; HEMATOCRIT 33.5 % (42-52); IG% 0.5 %; LYMPH % 5.1 %; LYMPH ABS # 0.95 K/uL (1.2-3.4); MEAN CELL VOLUME 81.3 fL (80-100); MEAN CORPUSCULAR HEMOGLOBIN 25.5 pg (25-34); MEAN CORPUSCULAR HGB CONC 31.3 g/dl (32-36); MEAN PLATELET VOLUME 9.6 fL (7.4-10.4); MONO % 6.3 %; NEUT % 87.1 %; PLATELET COUNT 218 K/uL (130-400); RED BLOOD COUNT 4.12 M/uL (4.7-6.1); WHITE BLOOD COUNT 18.64 K/uL (4.8-10.8)
--- NOTE | 2017-01-28 15:21 | EMERGENCY ROOM VISIT NOTE ---
History First contact with patient: 14:40 Chief Complaint: COUGH Stated Complaint: ABDOMINAL PAIN Nursing Triage Summary: Pt arrives via ALS litter from [facility] for eval of non prod cough, congestion and elevated WBC. Pt also reports nausea and left sided abd pain this morning. at bedside states pt had a stroke 20 yrs ago, has had pnx 2x this year. "When he stares and gets confused, it's usually because he has pnx." Edema and redness to RLE. History of Present Illness The patient is a 76 year old male who presents to the Emergency Room via ambulance accompanied by with complaints of "cough, abdominal pain". The patient states that he is currently at [facility], and has a history of CVA. He has had pneumonia twice this past year. The , who is well versed in the patient's medical history, notes that she was called by [facility] earlier today , saying that he was experiencing leg swelling, and believe it is moved up to his abdomen. Patient is noting pain in the left lower quadrant. He is also having trouble breathing. Apparently a chest x-ray was performed at the facility, and was found to be normal. There was concern for CHF. They have been doing breathing treatments at the facility, and as well as having him wear oxygen as of this morning. He normally does not wear oxygen. The patient is also felt queasy. He was given Zofran. He has slept for a period of time, but became slightly confused, and had trouble breathing therefore prompting the Advil is to be called and his delivery here. They deny any history of blood clots in lungs. The patient this time notes pain in the left lower side of his belly, and some shortness of breath. The notes that his stroke was on the right side, has decreased blood flow to his right leg therefore the erythema of the right leg is not new. Review of Systems A complete 10-point Review of Systems was discussed with the patient, with pertinent positives and negatives listed in the History of Present Illness. All remaining Review of Systems questions can be considered negative unless otherwise specified. Past Medical/Surgical History Medical Problems: (1) Chronic pain syndrome (2) COPD (chronic obstructive pulmonary disease) (3) CVA (cerebral infarction) (4) Fall (5) GI bleed (6) Hypothyroidism (7) FELICITA (iron deficiency anemia) (8) Monoclonal gammopathy (9) PMR (polymyalgia rheumatica) (10) Pneumonia (11) Right-sided nerve pain (12) Right-sided numbness (13) Sleep apnea Surgical Problems: (1) H/O esophagogastroduodenoscopy (2) H/O hernia repair (3) S/P cholecystectomy (4) S/P small bowel resection Family History Diabetes mellitus Gallbladder disease Heart disease Hypertension Kidney disease Kidney stones Lung disease Stroke Social History Smoking Status: Former Smoker Alcohol Use: none Drug Use: none Marital Status: Housing Status: lives with family, lives with significant other Occupation Status: retired Current/Historical Medications Scheduled Amlodipine (Norvasc), 10 MG PO QAM Aspirin (Aspirin Ec), 81 MG PO QAM Bimatoprost (Lumigan), 1 DROPS OP HS Brinzolamide-Brimonidine Tartr (Simbrinza), 1 DROP OPR TID Bromfenac Sodium (Ophth) (Bromfenac), 1 DROPS OPR DAILY Bumetanide (Bumex), 0.5 MG PO DAILY Cephalexin Monohydrate (Keflex), 500 MG PO BID Cholecalciferol (Vitamin D3), 2,000 UNITS PO QAM Ciprofloxacin HCl (Otic) (Ciprofloxacin), 1 DROP OPR QID Cyanocobalamin (Vitamin B-12), 1,000 MCG PO QAM Donepezil Hydrochloride (Donepezil Hcl), 1 TAB PO HS Duloxetine Hcl (Cymbalta), 60 MG PO QAM Fish Oil (Camden-3), 1 CAP PO QAM Gabapentin (Neurontin), 600 MG PO TID Hctz/Losartan (Hyzaar 25MG/100MG), 1 TAB PO QAM Lactobacillus (Acidophilus), 1 CAP PO QAM Levothyroxine Sodium (Levothyroxine Sodium), 1 TAB PO MWF Levothyroxine Sodium (Levothyroxine Sodium), 2 TABS PO 4XWK Melatonin (Kp Melatonin), 3 MG PO HS Meloxicam (Meloxicam), 15 MG PO QAM Methadone HCl (Methadone HCl), 30 MG PO HS Methadone Hcl (Dolophine), 40 MG PO QAM Multivitamin (Multivitamin), 1 TAB PO QAM Omeprazole (Prilosec), 20 MG PO QAM Potassium Chloride (Micro-K Ext Rel), 10 MEQ PO DAILY Prednisolone Acetate (Ophth) (Prednisolone Acetate), 1 DROPS OP QID Prednisone (Prednisone), 10 MG PO BID Tamsulosin Hcl (Flomax), 0.4 MG PO BID Travoprost (Travatan Z), 1 DROPS OP HS Trazodone Hcl (Trazodone), 100 MG PO HS Scheduled PRN Ipratropium-Albuterol (Combivent Respimat), 1 PUFFS INH QID PRN for SOB/Wheezing Ipratropium-Albuterol (Duoneb), 1 TREATMENT INH Q6H PRN for Wheezing Physical Exam Vital Signs Date Time Temp Pulse Resp B/P (MAP) Pulse Ox O2 Delivery O2 Flow Rate FiO2 01/28/17 14:28 37.2 89 18 117/67 89 Room Air 01/28/17 14:28 87 01/28/17 14:28 87 Room Air 01/28/17 14:20 93 Nasal Cannula 3.0 01/28/17 14:20 93 Nasal Cannula 3.0 Physical Exam VITAL SIGNS - Vital signs and nursing notes were reviewed. Stable. Hypoxic. GENERAL -76-year-old male appearing his stated age who is in no acute distress. Communicates well with provider and answers questions appropriately. SKIN - Without rashes. No petechial rashes. Slight erythema overlying the right leg, with edema bilaterally of the lower extremities. HEAD - NC/AT. EYES - PERRL with EOMI bilaterally. Sclera anicteric. No hyphema. EARS - No deformities of external structures noted on gross examination bilaterally. NOSE - Midline and without cyanosis. No epistaxis or purulent drainage noted. MOUTH/OROPHARYNX - Without perioral cyanosis. Buccal mucosa pink and moist and without leukoplakia. LUNGS - Chest wall symmetric without accessory muscle use, intercostals retractions, or central cyanosis. Decreased breath sounds bilaterally. CARDIAC - RRR with S1/S2. No murmur, rubs, or gallops appreciated. ABDOMEN - Abdominal contour enlarged and rigid without pulsations or visible masses. BS normoactive all four quadrants. EXTREMITIES - No clubbing or peripheral cyanosis. There is pretibial edema present. NEUROLOGIC - Cranial nerves II through XII grossly intact. Sensory intact to light touch throughout. PSYCH - A&O, and cooperates fully with examiner. Pt is very pleasant and interacts well with examiner. Medical Decision & Procedures ER Provider Diagnostic Interpretation: CHEST ONE VIEW PORTABLE CLINICAL HISTORY: dyspnea dyspnea COMPARISON STUDY: 07/07/2016 FINDINGS: Cardiomegaly. Limited study due to respiratory motion. Diaphragms are smooth. Atelectasis right base. IMPRESSION: Cardiac megaly. Limited atelectasis right base. Respiratory artifact The above report was generated using voice recognition software. It may contain grammatical, syntax or spelling errors. Electronically signed by: Ar Sarabia M.D. 01/28/2017 3:22 PM (CHEST) THORAX WITHOUT CT DOSE: HISTORY: Dyspnea Dyspnea, low o2 saturation TECHNIQUE: Multiaxial CT images of the chest were performed without contrast. A dose lowering technique was utilized adhering to the principles of ALARA. COMPARISON: 06/15/2015 FINDINGS: Mild cardiomegaly. Moderate atherosclerotic change thoracic aorta. Calcification of the cardiac vasculature. Mild interstitial and bronchovascular prominence throughout both hemithoraces. Moderate respiratory motion artifact. IMPRESSION: 1. Pulmonary vascular congestion. 2. Mid to lower lung interstitial prominence bilaterally. The above report was generated using voice recognition software. It may contain grammatical, syntax or spelling errors. Electronically signed by: Ar Sarabia M.D. 01/28/2017 4:[address] SCAN OF THE ABDOMEN AND PELVIS WITHOUT CONTRAST CLINICAL HISTORY: Left lower quadrant abdominal pain. Peritoneal signs. Edema. COMPARISON STUDY: 06/15/2015 TECHNIQUE: CT scan of the abdomen and pelvis was performed from the lung bases to the proximal femurs. Images are reviewed in the axial, sagittal, and coronal planes. IV contrast was not administered for this examination. A dose lowering technique was utilized adhering to the principles of ALARA. CT DOSE: 2753.09 mGy.cm FINDINGS: Lower chest: There is bronchial wall thickening and mucous plugging within the right lower lobe. There is a 7 mm right middle lobe pulmonary nodule. The findings are statistically inflammatory. Short-term follow-up is recommended. Liver: The unenhanced liver is normal in size, contour, and attenuation. There is no intrahepatic biliary ductal dilatation. Gallbladder: Surgically absent Spleen: Normal in size and attenuation. Pancreas: Unremarkable. Adrenal glands: Unremarkable. Kidneys: There is a 3 cm right renal cyst. There is a 4 cm lower pole left renal cyst. There is a 22 mm mid pole left renal cyst. There is a 16 mm mid pole left renal lesion which exceeds water attenuation and is therefore hyperdense. While likely representing a hyperdense cyst, a solid renal neoplasm cannot be excluded Bowel: There are no transition zones indicate bowel obstruction. There are scattered colonic diverticula. There is no acute diverticulitis. The appendix is mildly thickened, but there are no periappendiceal inflammatory change. Peritoneum: There is no intraperitoneal free air or abdominal ascites. Vasculature: The abdominal aorta is normal in course and caliber. Adenopathy: None. Pelvic viscera: The bladder, and pelvic viscera are unremarkable. Skeletal structures: No destructive osseous lesions are seen. IMPRESSION: 1. No renal, ureteral, or bladder calculi identified 2. No evidence of bowel obstruction. No evidence of free air 3. Bilateral renal cysts. 16 mm hyperdense left renal mass. While likely are presenting a hyperdense cyst, a solid renal neoplasm cannot be excluded 4. No evidence of acute diverticulitis 5. Mildly thickened appendix, but no evidence of periappendiceal inflammatory change. This may represent a normal variant. Clinical follow-up is advocated. 6. Bilateral lower lobe bronchial wall thickening with right lower lobe mucus plugging. 7 mm right middle lobe pulmonary nodule. This is statistically inflammatory. Short-term follow-up is recommended. Electronically signed by: Dominic Darling M.D. 01/28/2017 4:14 PM Dictated Date/Time: 01/28/2017 4:05 PM Laboratory Results 01/28/17 14:55 Red Blood Count 4.12, Mean Corpuscular Volume 81.3, Mean Corpuscular Hemoglobin 25.5, Mean Corpuscular Hemoglobin Concent 31.3, Mean Platelet Volume 9.6, Neutrophils (%) (Auto) 87.1, Lymphocytes (%) (Auto) 5.1, Monocytes (%) (Auto) 6.3, Eosinophils (%) (Auto) 0.9, Basophils (%) (Auto) 0.1, Neutrophils # (Auto) 16.24, Lymphocytes # (Auto) 0.95, Monocytes # (Auto) 1.17, Eosinophils # (Auto) 0.17, Basophils # (Auto) 0.02 01/28/17 14:55 Test 01/28/17 14:55 01/28/17 15:30 01/28/17 16:19 White Blood Count 18.64 K/uL (4.8-10.8) Red Blood Count 4.12 M/uL (4.7-6.1) Hemoglobin 10.5 g/dL (14.0-18.0) Hematocrit 33.5 % (42-52) Mean Corpuscular Volume 81.3 fL (80-100) Mean Corpuscular Hemoglobin 25.5 pg (25-34) Mean Corpuscular Hemoglobin Concent 31.3 g/dl (32-36) Platelet Count 218 K/uL (130-400) Mean Platelet Volume 9.6 fL (7.4-10.4) Neutrophils (%) (Auto) 87.1 % Lymphocytes (%) (Auto) 5.1 % Monocytes (%) (Auto) 6.3 % Eosinophils (%) (Auto) 0.9 % Basophils (%) (Auto) 0.1 % Neutrophils # (Auto) 16.24 K/uL (1.4-6.5) Lymphocytes # (Auto) 0.95 K/uL (1.2-3.4) Monocytes # (Auto) 1.17 K/uL (0.11-0.59) Eosinophils # (Auto) 0.17 K/uL (0-0.5) Basophils # (Auto) 0.02 K/uL (0-0.2) RDW Standard Deviation 56.4 fL (36.4-46.3) RDW Coefficient of Variation 18.9 % (11.5-14.5) Immature Granulocyte % (Auto) 0.5 % Immature Granulocyte # (Auto) 0.09 K/uL (0.00-0.02) Prothrombin Time 9.9 SECONDS (9.0-12.0) Prothromb Time International Ratio 0.9 (0.9-1.1) Activated Partial Thromboplast Time 25.2 SECONDS (21.0-31.0) Partial Thromboplastin Ratio 1.0 Anion Gap 8.0 mmol/L (3-11) Est Creatinine Clear Calc Drug Dose 77.0 ml/min Estimated GFR () 67.7 Estimated GFR (Non- 58.4 BUN/Creatinine Ratio 16.2 (10-20) Calcium Level 9.2 mg/dl (8.5-10.1) Magnesium Level 1.9 mg/dl (1.8-2.4) Total Bilirubin 0.3 mg/dl (0.2-1) Aspartate Amino Transf (AST/SGOT) 12 U/L (15-37) Alanine Aminotransferase (ALT/SGPT) 21 U/L (12-78) Alkaline Phosphatase 60 U/L (45-117) Total Creatine Kinase 44 U/L (39-308) Creatine Kinase MB 1.6 ng/ml (0.5-3.6) Creatine Kinase MB Ratio 3.6 (0-3.0) Troponin I < 0.015 ng/ml (0-0.045) C-Reactive Protein 2.76 mg/dl (0-0.29) Total Protein 6.6 gm/dl (6.4-8.2) Albumin 2.7 gm/dl (3.4-5.0) Globulin 3.9 gm/dl (2.5-4.0) Albumin/Globulin Ratio 0.7 (0.9-2) Thyroid Stimulating Hormone (TSH) 0.893 uIu/ml (0.300-4.500) Lactic Acid Level 3.5 mmol/L (0.4-2.0) Venous Blood pH 7.37 (7.36-7.41) Venous Blood Partial Pressure CO2 64 mmHg (38.0-50.0) Venous Blood Partial Pressure O2 40 mmHg Venous Blood HCO3 36 mmol/L Venous Blood Oxygen Saturation 67.7 % Venous Blood Base Excess 8.9 mEq/L Medical Decision Patient was seen and evaluated as above. He presents to us today with increased shortness of breath, slight confusion, elevated white count, and left lower quadrant abdominal pain. He is now requiring oxygen. He examines well, but blood cultures were obtained, and his lactic acid was found to be elevated around 3. Leukocytosis at 18.64. Blood gas reveals normal pH. CO2 high at 64. Coags unremarkable. Lactic acid is 3.5. Chloride is low at 97, carbon dioxide high at 33. BUN high 19. Creatinine okay 1.2. The anemia, specifically the hemoglobin reveals a 1.0 drop in the past day. TSH is unremarkable. Chest x-ray is inconclusive. CT of the chest and abdomen and pelvis without contrast was ordered secondary to his allergy to the IV contrast agents. This reveals bronchial this blood, and was believed to be inflammatory/ infectious etiology. There are multiple incidentals which she is to follow up for in the future. At this time I do believe that he should be admitted to the hospital for further evaluation and management secondary to leukocytosis, lactic acidosis, and imaging findings. He was given vancomycin and Zosyn after consult and pharmacy. He was bolused with 1 L of normal saline. Consult was made with the admission team. He is referred further documentation regarding his stay. Case was discussed with the attending physician. EKG reveals normal sinus rhythm, approved compared to previous EKG. In evaluation treatment this patient following differential diagnoses radiographs: MN, PE, pneumonia, ascites, CHF, among others. Impression Primary Impression: Cough Additional Impressions: Anemia Mucus plugging of bronchi Departure Information Dispostion Admitted as an inpatient Condition POOR Referrals Chi Meyers M.D.([facility]) (PCP) Patient Instructions [facility] Problem Qualifiers
[2017-01-28 15:29] LABS: INR 0.9 (0.9-1.1); PROTHROMBIN TIME (PATIENT) 9.9 SECONDS (9.0-12.0)
[2017-01-28 15:38] LABS: ALT/SGPT 21 U/L (12-78); BLOOD UREA NITROGEN 19 mg/dl (7-18); BUN/CREATININE RATIO 16.2 (10-20); C-REACTIVE PROTEIN 2.76 mg/dl (0-0.29); CALCIUM 9.2 mg/dl (8.5-10.1); CARBON DIOXIDE 33 mmol/L (21-32); CHLORIDE 97 mmol/L (98-107); GLUCOSE 154 mg/dl (70-99); MAGNESIUM 1.9 mg/dl (1.8-2.4); SODIUM 138 mmol/L (136-145)
[2017-01-28 15:48] LABS: ALB/GLOB RATIO 0.7 (0.9-2); ALKALINE PHOSPHATASE 60 U/L (45-117); AST/SGOT 12 U/L (15-37); CKMB/CK RATIO 3.6 (0-3.0); THYROID STIMULATING HORMONE 0.893 uIu/ml (0.300-4.500)
--- NOTE | 2017-01-28 16:08 | DIAGNOSTIC IMAGING REPORT ---
(CHEST) THORAX WITHOUT CT DOSE: HISTORY: Dyspnea Dyspnea, low o2 saturation TECHNIQUE: Multiaxial CT images of the chest were performed without contrast. A dose lowering technique was utilized adhering to the principles of ALARA. COMPARISON: 06/15/2015 FINDINGS: Mild cardiomegaly. Moderate atherosclerotic change thoracic aorta. Calcification of the cardiac vasculature. Mild interstitial and bronchovascular prominence throughout both hemithoraces. Moderate respiratory motion artifact. IMPRESSION: 1. Pulmonary vascular congestion. 2. Mid to lower lung interstitial prominence bilaterally. The above report was generated using voice recognition software. It may contain grammatical, syntax or spelling errors. Electronically signed by: Ar Sarabia M.D. 01/28/2017 4:07 PM Dictated Date/Time: 01/28/2017 4:05 PM
--- NOTE | 2017-01-28 16:16 | DIAGNOSTIC IMAGING REPORT ---
CT SCAN OF THE ABDOMEN AND PELVIS WITHOUT CONTRAST CLINICAL HISTORY: Left lower quadrant abdominal pain. Peritoneal signs. Edema. COMPARISON STUDY: 06/15/2015 TECHNIQUE: CT scan of the abdomen and pelvis was performed from the lung bases to the proximal femurs. Images are reviewed in the axial, sagittal, and coronal planes. IV contrast was not administered for this examination. A dose lowering technique was utilized adhering to the principles of ALARA. CT DOSE: 2753.09 mGy.cm FINDINGS: Lower chest: There is bronchial wall thickening and mucous plugging within the right lower lobe. There is a 7 mm right middle lobe pulmonary nodule. The findings are statistically inflammatory. Short-term follow-up is recommended. Liver: The unenhanced liver is normal in size, contour, and attenuation. There is no intrahepatic biliary ductal dilatation. Gallbladder: Surgically absent Spleen: Normal in size and attenuation. Pancreas: Unremarkable. Adrenal glands: Unremarkable. Kidneys: There is a 3 cm right renal cyst. There is a 4 cm lower pole left renal cyst. There is a 22 mm mid pole left renal cyst. There is a 16 mm mid pole left renal lesion which exceeds water attenuation and is therefore hyperdense. While likely representing a hyperdense cyst, a solid renal neoplasm cannot be excluded Bowel: There are no transition zones indicate bowel obstruction. There are scattered colonic diverticula. There is no acute diverticulitis. The appendix is mildly thickened, but there are no periappendiceal inflammatory change. Peritoneum: There is no intraperitoneal free air or abdominal ascites. Vasculature: The abdominal aorta is normal in course and caliber. Adenopathy: None. Pelvic viscera: The bladder, and pelvic viscera are unremarkable. Skeletal structures: No destructive osseous lesions are seen. IMPRESSION: 1. No renal, ureteral, or bladder calculi identified 2. No evidence of bowel obstruction. No evidence of free air 3. Bilateral renal cysts. 16 mm hyperdense left renal mass. While likely are presenting a hyperdense cyst, a solid renal neoplasm cannot be excluded 4. No evidence of acute diverticulitis 5. Mildly thickened appendix, but no evidence of periappendiceal inflammatory change. This may represent a normal variant. Clinical follow-up is advocated. 6. Bilateral lower lobe bronchial wall thickening with right lower lobe mucus plugging. 7 mm right middle lobe pulmonary nodule. This is statistically inflammatory. Short-term follow-up is recommended. Electronically signed by: Dominic Darling M.D. 01/28/2017 4:14 PM Dictated Date/Time: 01/28/2017 4:05 PM
[2017-01-28 16:31] LABS: VEN BLD GAS O2 SATURATION 67.7 %; VEN BLOOD GAS BASE EXCESS 8.9 mEq/L
[2017-01-28] MEDS ORDERED: SODIUM CHLORIDE 0.9% 1000ML 1,000 ML IV STA (17:03)
[2017-01-28] MEDS ORDERED: PIPERACILLIN/TAZOBACTAM 4.5 GM/100ML D5W IV STA (17:03)
[2017-01-28] MEDS ORDERED: VANCOMYCIN INJ 2,500 MG in SODIUM CHLORIDE 0.9% 250ML 250 ML IV STA (17:03)
[2017-01-28] MEDS ORDERED: ZOLPIDEM TARTRATE 5 MG TAB PO PRN (18:00)
[2017-01-28] MEDS ORDERED: ALBUT/IPRATROP 3MG/0.5MG NEB 3 ML VIAL INH PRN (18:00)
[2017-01-28] MEDS ORDERED: IPRATROPIUM BROMIDE/ALBUTEROL respimat INH INH PRN (18:00)
[2017-01-28] MEDS ORDERED: ACETAMINOPHEN 325 MG TAB PO PRN (18:00)
[2017-01-28] MEDS ORDERED: PIPERACILL/TAZOBAC CONSULT ACTIVE PRN (19:45)
[2017-01-28 20:07] VITALS: BP 134/79; PULSE 79; TEMP 36.7; O2SAT 94; Ht 188 cm; Wt 145.0 kg
[2017-01-28] MEDS ORDERED: BRINZOLAMIDE BRIMONIDINE TARTR OPR SCH (20:18)
[2017-01-28] MEDS: CIPRO 0.2%/HYDROCORTISONE 1% OTIC SUSP 10 ML BTL OT SCH (20:18)
--- NOTE | 2017-01-28 20:28 | HISTORY & PHYSICAL EXAMINATION ---
DATE OF ADMISSION: 01/28/2017 PRIMARY CARE PHYSICIAN: Dr. Meyers. HISTORY OF PRESENT COMPLAINT: He is a 76-year-old male, obese with significant past medical history of a stroke, monocular gammopathy, polymyalgia rheumatica, depression, COPD, hypothyroidism. Apparently, was sent in from [facility] with complaints of cough, congestion, shortness of breath and also some abdominal pain. History is obtained from the . The patient himself does not talk much and only complaint was some shortness of breath, not feeling well, some chest compression and upper groin pain. Denies of any fever, chills or rigors. He was noted to have low saturation and also swelling of the legs and some shortness of breath. In the ER, he was hemodynamically stable, afebrile with low saturation of 89 on room air and relevant test showed a white count to be 18,[address] scan of the abdomen did show bilateral lower zones inflammatory changes and from that point, he was started with intravenous vancomycin and Zosyn after taking blood culture and advised for admission with a probable diagnosis of bibasilar pneumonia. PAST MEDICAL HISTORY: Significant for depression, polymyalgia rheumatica, monoclonal gammopathy, TIA with a history of stroke, history of lower GI bleed, hypertension, hypothyroidism, and chronic pain syndrome. PAST SURGICAL HISTORY: Significant for hernia repair, cholecystectomy and also a small bowel resection, cataract surgery. FAMILY HISTORY: Father had diabetes. Mother had heart disorder, hypertension. Father had a stroke as well. SOCIAL HISTORY: He is . He lives at [facility] for the last 6 months. He requests assistance with ADLs. He is a former smoker. Does not use any alcohol. ALLERGIES: IODINATED CONTRAST MEDIA. MEDICATIONS: As an outpatient, he has been on Bumex 0.4 mg daily, Keflex as directed, fish oil 1 capsule daily, vitamin D3 2000 units daily, meloxicam 15 mg daily, amlodipine 10 mg daily, aspirin 81 mg daily, Lumigan 0.01% one drop Simbrinza 1suspension one drop t.i.d., bromfenac 0.05% 1 drop both eyes daily, ciprofloxacin Hcl otic 0.2% solution one drop q.i.d., vitamin B12 1000 mcg daily, donepezil 5 mg daily, Cymbalta 60 mg daily, Neurontin 600 mg three times daily, Hyzaar one tablet daily, Combivent Respimat one inhalation q.i.d. as needed, DuoNeb 3 mL q. 6 hourly as needed, acidophilus one capsule daily, levothyroxine sodium as directed, melatonin 3 mg daily, methadone 10 mg at night, methadone 10mg tablet 40 mg in the morning, multivitamin 1 tablet daily, omeprazole 20 mg daily, potassium chloride 10 mEq daily, prednisone solution as directed, prednisone 10 mg tablet twice daily, Flomax 0.4 mg b.i.d. and Travatan 0.004% one drop as directed, trazodone 100 mg daily. REVIEW OF SYSTEMS: Not obtainable from the patient. PHYSICAL EXAMINATION: GENERAL: On examination in the Emergency Room, he was not having any acute distress. VITAL SIGNS: Afebrile 37.2, pulse was 75, blood pressure 122/69, saturation 89% on room air and 98% on 3 liters. HEENT: Unremarkable. NECK: Supple. No JVD, no bruit. CHEST: Decreased breath sounds with minimal bibasilar crackles. HEART: S1, S2 regular. ABDOMEN: Soft, benign, nontender, no organomegaly. Bowel sounds present. EXTREMITIES: 1+ edema bilaterally, more on the left than the right. MUSCULOSKELETAL: Did not show any acute arthritis. CENTRAL NERVOUS SYSTEM: He was alert, awake, and oriented. He was generally very weak, but did not have any focal neuro deficit during my examination. LABORATORY DATA: Noted today white count was 18.64, H&H 10.5/33.5, platelet was 218, polys of 64.24%. Venous blood gas pH 7.37, pCO2 64, O2 was 40. Chemistry: Sodium 138, potassium 4.0, chloride 97, carbon dioxide 33, BUN 19, creatinine 1.20, random glucose 154, lactic acid of 3.5, calcium 9.2, magnesium 1.9, bilirubin 0.3. AST 12, ALT 21, alkaline phos 60, troponin was less than 0.015. C-reactive protein 2.76. TSH 0.839. PT/INR unremarkable. IMAGING DATA: Chest x-ray reported as cardiomegaly, limited atelectasis right base, respiratory artifact. CT of the chest reported as pulmonary vascular congestion, mild mid to lower lung interstitial prominences bilaterally. CT of the abdomen and pelvis without contrast reported as no renal, ureteral or bladder calculi, no evidence of bowel obstruction, bilateral renal cyst, 6 mm hyperdense left renal mass comparing with the prior CT scan that was there in 2015. No evidence of acute diverticulitis, mildly thickened appendix but no evidence of periappendicular inflammatory changes, bilateral lower lobe bronchial wall thickening with right lower lobe mucus plugging, 7 mm right middle lobe pulmonary nodule. This is statistically inflammatory and short term followup advised. EKG was in sinus rhythm, rate of 80 per minute, normal axis, right bundle branch block with associated changes, but no significant change noted. IMPRESSION AND PLAN: 1. Bibasilar infiltrate. The patient will be admitted to medical floor. Blood culture has been taken. He was started with Zosyn and vancomycin, we will continue right now. Nasal swab will be checked. We will get oxygen as needed. 2. History of chronic obstructive pulmonary disease. Continue with the current nebulized treatment. Prednisone should be continued as maintenance dose. He does not have any exacerbation. Does not require any additional prednisone at this time. 3. Polymyalgia rheumatica and also history of monoclonal gammopathy. Kidney function seems to be stable at this time. Continue with prednisone and current medications. 4. History of cerebrovascular accident. He seems to be bed bound and requires assistance with ADLs. We will get physical therapy evaluation while in the hospital. 5. Hypertension. Blood pressure seems to be controlled. Continue with amlodipine. 6. Hypothyroidism. Continue with current medications. 7. History of gastrointestinal bleed. Continue with omeprazole. No evidence of bleeding at this time. We will hold the NSAIDs. 8. Chronic pain syndrome, has been on methadone. We will continue with that. No additional pain medicines will be administered except Tylenol and non-narcotic. 9. Deep venous thrombosis prophylaxis with subcutaneous heparin. 10. Gastrointestinal prophylaxis with omeprazole. 11. Code status. As per the note, he does have a POLST and he will be a full code. In my clinical judgment, the beneficiary meets criteria as per CMS for 2 midnight stay in the hospital. MTDD
[2017-01-28] MEDS ORDERED: VANCOMYCIN CONSULT ACTIVE PRN ×2 (20:30→20:45)
--- NOTE | 2017-01-28 20:57 | Pharmacy Progress Note ---
Pharmacy Abx Initial Consult Date of Service Jan 28, 2017. Pharmacy Dosing Scope Date of Consult: 01/28/17 Consultation requested by: Dr. Phelan Pharmacy is consulted to initiate Vancomycin/Zosyn IV dosing therapy, order appropriate labs and adjust drug dose/frequency. Subjective The patient is a 76 year old male admitted on Jan 28, 2017 at 17:57. Objective Height (Feet): 6 Height (Inches): 2.00 Weight (Kilograms): 136.500 Vital Signs (Past 12Hrs) Vital Signs Past 12 Hours Date Time Temp Pulse Resp B/P (MAP) Pulse Ox O2 Delivery O2 Flow Rate FiO2 01/28/17 20:07 36.7 79 18 134/79 01/28/17 19:03 37.2 79 22 137/80 97 01/28/17 18:07 79 22 137/80 97 Nasal Cannula 3.0 01/28/17 17:16 75 16 122/69 98 Nasal Cannula 3.0 01/28/17 14:28 37.2 89 18 117/67 89 Room Air 01/28/17 14:28 87 01/28/17 14:28 87 Room Air 01/28/17 14:20 93 Nasal Cannula 3.0 01/28/17 14:20 93 Nasal Cannula 3.0 Lab Results (24Hrs) Laboratory Tests (24 Hours) Test 01/28/17 14:55 01/28/17 15:30 01/28/17 20:31 C-Reactive Protein 2.76 mg/dl (0-0.29) H White Blood Count 18.64 K/uL (4.8-10.8) H Red Blood Count 4.12 M/uL (4.7-6.1) L Hemoglobin 10.5 g/dL (14.0-18.0) L Hematocrit 33.5 % (42-52) L Mean Corpuscular Volume 81.3 fL (80-100) Mean Corpuscular Hemoglobin 25.5 pg (25-34) Mean Corpuscular Hemoglobin Concent 31.3 g/dl (32-36) L Platelet Count 218 K/uL (130-400) Mean Platelet Volume 9.6 fL (7.4-10.4) Neutrophils (%) (Auto) 87.1 % Lymphocytes (%) (Auto) 5.1 % Monocytes (%) (Auto) 6.3 % Eosinophils (%) (Auto) 0.9 % Basophils (%) (Auto) 0.1 % Neutrophils # (Auto) 16.24 K/uL (1.4-6.5) H Lymphocytes # (Auto) 0.95 K/uL (1.2-3.4) L Monocytes # (Auto) 1.17 K/uL (0.11-0.59) H Eosinophils # (Auto) 0.17 K/uL (0-0.5) Basophils # (Auto) 0.02 K/uL (0-0.2) Total Creatine Kinase 44 U/L (39-308) Lactic Acid Level 3.5 mmol/L (0.4-2.0) *H Micro Results Date/Time Source Procedure Growth Status 01/28/17 15:30 Blood Blood Culture Pending Received 01/28/17 14:55 Blood Blood Culture Pending Received Risk Factors for Resistance * Resident in a [facility] or extended-care facility * Hospitalization for 48 hours or more within the past 90 days * Immunocompromised (chronic steroid therapy) Assessment & Plan Assessment 76 year old male admitted with bibasilar infiltrates starting empiric IV Vancomycin and IV Zosyn Patient with BMI 38.6 kg/m2 thus will use less than traditional dose Plan Vancomycin/Zosyn for treatment of possible Pneumonia Vancomycin IV * Loading dose: 2500 mg (18.3 mg/kg) * Maintenance dose: 1750 mg IV (12.8 mg/kg) every 14 hours * Goal trough level for possible pneumonia: 15 to 20 mcg/mL * Trough level ordered for 01/31/17 prior to the 1400 hours dose * A less than traditional dose has been selected due to likelihood of drug accumulation in obese patient Piperacillin/tazobactam * 4.5 g bolus administered over 30 minutes, then 4.5 g IV extended infusion every 8 hours for CrCl greater than 20 mL/min * Aggressive dosing selected due to critically ill status/BMI 35 Pharmacy will continue to follow and will adjust dose/frequency as necessary. Thank you.
[2017-01-28] MEDS: METHADONE HCL 10 MG TAB PO SCH (20:59)
[2017-01-28] MEDS ORDERED: NON-FORMULARY MEDICATION (Melatonin (Kp Melatonin) 3 MG) PO SCH (21:00)
[2017-01-28 21:07] LABS: HEMATOCRIT 34.7 % (42-52); MEAN CELL VOLUME 81.8 fL (80-100); MEAN CORPUSCULAR HGB CONC 30.5 g/dl (32-36); MEAN PLATELET VOLUME 9.8 fL (7.4-10.4); PLATELET COUNT 230 K/uL (130-400); RED BLOOD COUNT 4.24 M/uL (4.7-6.1); WHITE BLOOD COUNT 16.35 K/uL (4.8-10.8)
[2017-01-28 21:24] LABS: BUN/CREATININE RATIO 16.5 (10-20); CALCIUM 8.9 mg/dl (8.5-10.1); CREATININE 1.3 mg/dl (0.60-1.40); POTASSIUM 4.1 mmol/L (3.5-5.1)
[2017-01-28] MEDS: PrednisoLONE ACET 1% OP SUSP 5 ML BTL OP SCH (21:44)
[2017-01-28] MEDS: TAMSULOSIN HCL 0.4 MG CAP PO SCH (21:45)
[2017-01-28] MEDS: TRAZODONE HCL 100 MG TAB PO SCH (21:45)
[2017-01-28] MEDS: DONEPEZIL HCL 5 MG TAB PO SCH (21:45)
[2017-01-28] MEDS: GABAPENTIN 600 MG TAB PO SCH (21:45)
[2017-01-28] MEDS: BIMATOPROST 0.01% OP SOLN 2.5 ML BTL OP SCH (21:46)
[2017-01-28] MEDS: TRAVOPROST Z 0.004% OPH SOLN 2.5 ML BTL OP SCH (21:46)
[2017-01-28] MEDS: HEPARIN SOD 5000 UNIT/0.5 ML CARP SQ SCH (21:50)
[2017-01-28] MEDS: PIPERACILL/TAZOBAC IV 4.5 GM in DEXTROSE 5% 100ML 100 ML IV SCH (23:36)
[2017-01-29] VITALS: BP 135/66; PULSE 71; TEMP 36.9; O2SAT 93
[2017-01-29] MEDS ORDERED: PIPERACILL/TAZOBAC IV 4.5 GM in DEXTROSE 5% 100ML 100 ML IV SCH ×2
[2017-01-29] MEDS: HEPARIN SOD 5000 UNIT/0.5 ML CARP SQ SCH ×3 (06:00→21:01)
[2017-01-29] MEDS ORDERED: VANCOMYCIN INJ 1,750 MG in SODIUM CHLORIDE 0.9% 500ML 500 ML IV SCH (06:00)
[2017-01-29] MEDS: LEVOTHYROXINE 50 MCG TAB PO SCH (06:01)
[2017-01-29 06:28] LABS: CREATININE 1.2 mg/dl (0.60-1.40)
[2017-01-29 07:58] VITALS: BP 176/78; PULSE 73; TEMP 36.7; O2SAT 94
[2017-01-29] MEDS: CIPRO 0.2%/HYDROCORTISONE 1% OTIC SUSP 10 ML BTL OT SCH ×6 (08:00→19:04)
[2017-01-29] MEDS ORDERED: BROMFENAC SODIUM OPR SCH (08:00)
[2017-01-29] MEDS ORDERED: INFLUENZA VACCINE HIGH DOSE 65+ 0.5 ML SYR IM. ONE (08:00)
[2017-01-29] MEDS ORDERED: INFLUENZA ADMINISTRATION CHARGE ONE (08:00)
[2017-01-29] MEDS: PrednisoLONE ACET 1% OP SUSP 5 ML BTL OP SCH ×4 (08:16→20:58)
[2017-01-29] MEDS: DULOXETINE HCL 60 MG CAP PO SCH (08:16)
[2017-01-29] MEDS: LOSARTAN/HCTZ 50-12.5 EA TAB PO SCH (08:17)
[2017-01-29] MEDS: LACTOBACILLUS ACIDOPHILUS (FLORANEX) TAB PO SCH (08:17)
[2017-01-29] MEDS: TAMSULOSIN HCL 0.4 MG CAP PO SCH ×2 (08:17→20:59)
[2017-01-29] MEDS: MULTIVITAMIN TAB PO SCH (08:17)
[2017-01-29] MEDS: GABAPENTIN 600 MG TAB PO SCH ×3 (08:17→21:00)
[2017-01-29] MEDS: ASPIRIN 81 MG ECTAB PO SCH (08:17)
[2017-01-29] MEDS: POTASSIUM CHLORIDE 10 MEQ TABCR PO SCH (08:17)
[2017-01-29] MEDS: METHADONE HCL 10 MG TAB PO SCH ×2 (08:17→21:04)
[2017-01-29] MEDS: CYANOCOBALAMIN 500 MCG TAB (VIT B-12) PO SCH (08:18)
[2017-01-29] MEDS: PANTOprazole SOD 40 MG TAB PO SCH (08:18)
[2017-01-29] MEDS: PIPERACILL/TAZOBAC IV 4.5 GM in DEXTROSE 5% 100ML 100 ML IV SCH ×3 (08:18→23:35)
[2017-01-29] MEDS: AMLODIPINE BESYLATE 5 MG TAB PO SCH (08:18)
[2017-01-29 16:13] VITALS: BP 156/75; PULSE 85; TEMP 36.8; O2SAT 96
[2017-01-29 18:38] LABS: URINE APPEARANCE CLEAR (CLEAR); URINE BILIRUBIN NEG (NEG); URINE COLOR YELLOW; URINE NITRITE NEG (NEG); URINE SPECIFIC GRAVITY 1.017 (1.000-1.030); UROBILINOGEN NEG (NEG); ZZUR CULT IF INDIC CLEAN CATCH NO
[2017-01-29 18:48] LABS: MANUAL MICROSCOPIC REQUIRED? NO; REVIEW REQ? NO
[2017-01-29 19:00] VITALS: O2SAT 96
[2017-01-29] MEDS: TRAVOPROST Z 0.004% OPH SOLN 2.5 ML BTL OP SCH (20:59)
[2017-01-29] MEDS: BIMATOPROST 0.01% OP SOLN 2.5 ML BTL OP SCH (20:59)
[2017-01-29] MEDS: TRAZODONE HCL 100 MG TAB PO SCH (21:00)
[2017-01-29] MEDS: DONEPEZIL HCL 5 MG TAB PO SCH (21:00)
[2017-01-30] VITALS (7 sets, daily range): BP systolic 149–183; BP diastolic 74–93; PULSE 74–79; TEMP 36.6–37; O2SAT 93–95
[2017-01-30] MEDS: HEPARIN SOD 5000 UNIT/0.5 ML CARP SQ SCH ×3 (05:47→21:24)
[2017-01-30] MEDS ORDERED: LEVOTHYROXINE 25 MCG TAB PO SCH (06:30)
[2017-01-30 07:14] LABS: CREATININE 1.1 mg/dl (0.60-1.40)
[2017-01-30] MEDS: PIPERACILL/TAZOBAC IV 4.5 GM in DEXTROSE 5% 100ML 100 ML IV SCH (07:53)
[2017-01-30] MEDS: PrednisoLONE ACET 1% OP SUSP 5 ML BTL OP SCH ×4 (07:54→21:17)
[2017-01-30] MEDS: DULOXETINE HCL 60 MG CAP PO SCH (07:55)
[2017-01-30] MEDS: CIPRO 0.2%/HYDROCORTISONE 1% OTIC SUSP 10 ML BTL OT SCH ×3 (07:55→17:00)
[2017-01-30] MEDS: ASPIRIN 81 MG ECTAB PO SCH (07:56)
[2017-01-30] MEDS: METHADONE HCL 10 MG TAB PO SCH ×2 (07:56→21:24)
[2017-01-30] MEDS: TAMSULOSIN HCL 0.4 MG CAP PO SCH ×2 (07:57→21:21)
[2017-01-30] MEDS: LACTOBACILLUS ACIDOPHILUS (FLORANEX) TAB PO SCH (07:57)
[2017-01-30] MEDS: LOSARTAN/HCTZ 50-12.5 EA TAB PO SCH (07:58)
[2017-01-30] MEDS: POTASSIUM CHLORIDE 10 MEQ TABCR PO SCH (07:58)
[2017-01-30] MEDS: MULTIVITAMIN TAB PO SCH (07:58)
[2017-01-30] MEDS: GABAPENTIN 600 MG TAB PO SCH ×3 (07:58→21:22)
[2017-01-30] MEDS: AMLODIPINE BESYLATE 5 MG TAB PO SCH (07:59)
[2017-01-30] MEDS: PANTOprazole SOD 40 MG TAB PO SCH (07:59)
[2017-01-30] MEDS: CYANOCOBALAMIN 500 MCG TAB (VIT B-12) PO SCH (08:00)
--- NOTE | 2017-01-30 08:19 | Progress Note ---
Internal Med Progress Note Date of Service: Jan 30, 2017. Provider Documentation: This is a bill for 01/29/17 SUBJECTIVE: The patient was seen and examined Feels a lot better today Denies any complaints OBJECTIVE: Vital Signs-as noted below Exam: General-no distress Eyes-normal ENT-noemal Neck-Supple Lungs-Clear to auscultate bilaterally Heart-Regular Abdomen-Benign,no masses,bowel sound present Extremities-Trace edema bilaterally Neuro-AAOx3 Generally weak,no focal neuro deficit Lab data as noted below. ASSESSMENT & PLAN: Pneumonia Bibasilar infiltrate. Hypoxic on presentation Was on Vanco and Zosyn Clinically much better MRSA -negative Vanco discontinued Will change to Levaquin on discharge History of chronic obstructive pulmonary disease. Does not have Exacerbation Continue current medication Polymyalgia rheumatica and also history of monoclonal gammopathy. Kidney function seems to be stable at this time. Continue with prednisone and current medications. History of cerebrovascular accident. Requires assistance with ADLs. We will get physical therapy evaluation while in the hospital. Hypertension. Blood pressure seems to be controlled. Continue with amlodipine. Hypothyroidism. Continue with current medications. History of gastrointestinal bleed. Continue with omeprazole. No evidence of bleeding at this time. We will hold the NSAIDs. Chronic pain syndrome, has been on methadone. Continue current medications Deep venous thrombosis prophylaxis with subcutaneous heparin. Gastrointestinal prophylaxis with omeprazole. Code status. As per the note, he does have a POLST and he will be a full code. Vital Signs: Date Time Temp Pulse Resp B/P (MAP) Pulse Ox O2 Delivery O2 Flow Rate FiO2 01/30/17 00:55 37.0 79 19 149/74 (99) 93 Room Air 01/29/17 23:35 Room Air 01/29/17 19:00 96 Nasal Cannula 3.0 01/29/17 16:13 36.8 85 20 156/75 (102) 96 Nasal Cannula 3.0 01/29/17 10:53 Nasal Cannula 3.0 Lab Results: Results Past 24 Hours Test 01/29/17 17:55 01/30/17 06:23 Range/Units Urine Color YELLOW Urine Appearance CLEAR CLEAR Urine pH 6.0 4.5-7.5 Urine Specific Flora 1.017 1.000-1.030 Urine Protein NEG NEG Urine Glucose (UA) NEG NEG Urine Ketones NEG NEG Urine Occult Blood NEG NEG Urine Nitrite NEG NEG Urine Bilirubin NEG NEG Urine Urobilinogen NEG NEG Urine Leukocyte Esterase NEG NEG Creatinine 1.10 0.60-1.40 mg/dl Est Creatinine Clear Calc Drug Dose 84.0 ml/min Estimated GFR () 75.2 Estimated GFR (Non- 64.9
[2017-01-30] MEDS ORDERED: LEVOFLOXACIN 750 MG TAB PO ONE (13:49)
[2017-01-30 14:11] LABS: HEMATOCRIT 34.7 % (42-52); MEAN CORPUSCULAR HEMOGLOBIN 25.6 pg (25-34); MEAN PLATELET VOLUME 9.1 fL (7.4-10.4); PLATELET COUNT 216 K/uL (130-400); RED BLOOD COUNT 4.34 M/uL (4.7-6.1); WHITE BLOOD COUNT 10.97 K/uL (4.8-10.8)
[2017-01-30 14:43] LABS: BUN/CREATININE RATIO 13.1 (10-20); CALCIUM 9.1 mg/dl (8.5-10.1); CREATININE 1.2 mg/dl (0.60-1.40)
--- NOTE | 2017-01-30 15:05 | Progress Note ---
Internal Med Progress Note Date of Service: Jan 30, 2017. Provider Documentation: SUBJECTIVE: The patient was seen and examined Feels a lot better today Denies any complaints Generally weak Wants to go back to [facility] today Clinically a lot better OBJECTIVE: Vital Signs-as noted below Exam: General-no distress at rest Eyes-normal ENT-normal Neck-Supple Lungs-Clear to auscultate bilaterally No wheezing and or crackles Heart-Regular Abdomen-Benign,no masses,bowel sound present Extremities-Trace edema bilaterally Neuro-AAOx3 Generally weak,no focal neuro deficit Lab data as noted below. ASSESSMENT & PLAN: Pneumonia Bibasilar infiltrate. Hypoxic on presentation Was on Vanco and Zosyn Clinically much better MRSA -negative Vanco discontinued Will change to Levaquin on discharge Clinically a lot better Will discontinue Zosyn Started on Levaquin and will continue for 5 more days History of chronic obstructive pulmonary disease. Does not have Exacerbation Continue current medication Does not use any oxygen Polymyalgia rheumatica and also history of monoclonal gammopathy. Kidney function seems to be stable at this time. Continue with prednisone and current medications. History of cerebrovascular accident. Requires assistance with ADLs. We will get physical therapy evaluation while in the hospital. Hypertension. Blood pressure seems to be controlled. Continue with amlodipine. Hypothyroidism. Continue with current medications. History of gastrointestinal bleed. Continue with omeprazole. No evidence of bleeding at this time. We will hold the NSAIDs. Chronic pain syndrome, has been on methadone. Continue current medications Deep venous thrombosis prophylaxis with subcutaneous heparin. Gastrointestinal prophylaxis with omeprazole. Code status. As per the note, he does have a POLST and he will be a full code. Discharge to [facility] today Vital Signs: Date Time Temp Pulse Resp B/P (MAP) Pulse Ox O2 Delivery O2 Flow Rate FiO2 01/30/17 11:53 36.7 76 18 159/84 (109) 94 Room Air 01/30/17 11:38 Room Air 01/30/17 08:41 93 Room Air 01/30/17 07:55 36.6 74 20 183/93 (123) 93 Room Air 01/30/17 00:55 37.0 79 19 149/74 (99) 93 Room Air 01/29/17 23:35 Room Air 01/29/17 19:00 96 Nasal Cannula 3.0 01/29/17 16:13 36.8 85 20 156/75 (102) 96 Nasal Cannula 3.0 Lab Results: Results Past 24 Hours Test 01/29/17 17:55 01/30/17 06:23 01/30/17 14:02 Range/Units Urine Color YELLOW Urine Appearance CLEAR CLEAR Urine pH 6.0 4.5-7.5 Urine Specific Alva 1.017 1.000-1.030 Urine Protein NEG NEG Urine Glucose (UA) NEG NEG Urine Ketones NEG NEG Urine Occult Blood NEG NEG Urine Nitrite NEG NEG Urine Bilirubin NEG NEG Urine Urobilinogen NEG NEG Urine Leukocyte Esterase NEG NEG Creatinine 1.10 1.20 0.60-1.40 mg/dl Est Creatinine Clear Calc Drug Dose 84.0 79.5 ml/min Estimated GFR () 75.2 67.7 Estimated GFR (Non- 64.9 58.4 White Blood Count 10.97 4.8-10.8 K/uL Red Blood Count 4.34 4.7-6.1 M/uL Hemoglobin 11.1 14.0-18.0 g/dL Hematocrit 34.7 42-52 % Mean Corpuscular Volume 80.0 80-100 fL Mean Corpuscular Hemoglobin 25.6 25-34 pg Mean Corpuscular Hemoglobin Concent 32.0 32-36 g/dl RDW Standard Deviation 53.5 36.4-46.3 fL RDW Coefficient of Variation 18.0 11.5-14.5 % Platelet Count 216 130-400 K/uL Mean Platelet Volume 9.1 7.4-10.4 fL Sodium Level 138 136-145 mmol/L Potassium Level 4.0 3.5-5.1 mmol/L Chloride Level 99 98-107 mmol/L Carbon Dioxide Level 31 21-32 mmol/L Anion Gap 8.0 3-11 mmol/L Blood Urea Nitrogen 16 7-18 mg/dl BUN/Creatinine Ratio 13.1 10-20 Random Glucose 172 70-99 mg/dl Calcium Level 9.1 8.5-10.1 mg/dl
[2017-01-30] MEDS ORDERED: NURSING VERBAL MED ORDER ONE (18:00)
[2017-01-30] MEDS: CIPROFLOXACIN HCL 0.3% OP SOLN 2.5 ML BTL OPR SCH (21:17)
[2017-01-30] MEDS: BIMATOPROST 0.01% OP SOLN 2.5 ML BTL OP SCH (21:20)
[2017-01-30] MEDS: TRAVOPROST Z 0.004% OPH SOLN 2.5 ML BTL OP SCH (21:21)
[2017-01-30] MEDS: TRAZODONE HCL 100 MG TAB PO SCH (21:22)
[2017-01-30] MEDS: DONEPEZIL HCL 5 MG TAB PO SCH (21:22)
[2017-01-31 00:30] VITALS: BP 158/89; PULSE 96; TEMP 36.8; O2SAT 92
[2017-01-31] MEDS: HEPARIN SOD 5000 UNIT/0.5 ML CARP SQ SCH (06:00)
[2017-01-31] MEDS: LEVOTHYROXINE 50 MCG TAB PO SCH (06:23)
[2017-01-31 07:50] VITALS: BP 155/83; PULSE 73; TEMP 36.6; O2SAT 92
[2017-01-31] MEDS: CIPROFLOXACIN HCL 0.3% OP SOLN 2.5 ML BTL OPR SCH (09:07)
[2017-01-31] MEDS: PrednisoLONE ACET 1% OP SUSP 5 ML BTL OP SCH (09:07)
[2017-01-31] MEDS: DULOXETINE HCL 60 MG CAP PO SCH (09:08)
[2017-01-31] MEDS: METHADONE HCL 10 MG TAB PO SCH (09:09)
[2017-01-31] MEDS: LOSARTAN/HCTZ 50-12.5 EA TAB PO SCH (09:09)
[2017-01-31] MEDS: TAMSULOSIN HCL 0.4 MG CAP PO SCH (09:09)
[2017-01-31] MEDS: ASPIRIN 81 MG ECTAB PO SCH (09:09)
[2017-01-31] MEDS: LACTOBACILLUS ACIDOPHILUS (FLORANEX) TAB PO SCH (09:09)
[2017-01-31] MEDS: POTASSIUM CHLORIDE 10 MEQ TABCR PO SCH (09:10)
[2017-01-31] MEDS: GABAPENTIN 600 MG TAB PO SCH (09:10)
[2017-01-31] MEDS: PANTOprazole SOD 40 MG TAB PO SCH (09:10)
[2017-01-31] MEDS: MULTIVITAMIN TAB PO SCH (09:10)
[2017-01-31] MEDS: AMLODIPINE BESYLATE 5 MG TAB PO SCH (09:10)
[2017-01-31] MEDS: CYANOCOBALAMIN 500 MCG TAB (VIT B-12) PO SCH (09:11)
--- NOTE | 2017-01-31 09:59 | Progress Note ---
Internal Med Progress Note Date of Service: Jan 31, 2017. Provider Documentation: SUBJECTIVE: The patient was seen and examined Feels a lot better today Denies any complaints Much better today Anxious that he did not leave yesterday Denies any complaints Wants to go back to [facility] today OBJECTIVE: Vital Signs-as noted below Exam: General-no distress at rest Eyes-normal ENT-normal Neck-Supple Lungs-Clear to auscultate bilaterally No wheezing and or crackles Heart-Regular Abdomen-Benign,no masses,bowel sound present Extremities-Trace edema bilaterally Neuro-AAOx3 Generally weak,no focal neuro deficit Lab data as noted below. CT of the Abdomen and Pelvis:: 1. No renal, ureteral, or bladder calculi identified 2. No evidence of bowel obstruction. No evidence of free air 3. Bilateral renal cysts. 16 mm hyperdense left renal mass. While likely are presenting a hyperdense cyst, a solid renal neoplasm cannot be excluded 4. No evidence of acute diverticulitis 5. Mildly thickened appendix, but no evidence of periappendiceal inflammatory change. This may represent a normal variant. Clinical follow-up is advocated. 6. Bilateral lower lobe bronchial wall thickening with right lower lobe mucus plugging. 7 mm right middle lobe pulmonary nodule. This is statistically inflammatory. Short-term follow-up is recommended. CT of the Chest:: 1. Pulmonary vascular congestion. 2. Mid to lower lung interstitial prominence bilaterally. CT of the Chest ::06/2015 CT SCAN OF THE CHEST WITHOUT IV CONTRAST CLINICAL HISTORY: Fall one week previously with right posterior chest wall pain. COMPARISON STUDY: Chest x-ray dated 04/08/2015. TECHNIQUE: CT scan of the thorax was performed from the thoracic inlet to the upper abdomen. Images are reviewed in the axial, sagittal, and coronal planes. IV contrast was not administered for this examination. The examination is significantly degraded by streak artifact from the patient's arms which could not be elevated above the chest. CT DOSE: 3067.66 mGy.cm FINDINGS: Thyroid: The thyroid gland is enlarged and heterogeneous. There are numerous small thyroid nodules and coarse calcifications. Thoracic aorta: There is moderate atherosclerotic calcification of the thoracic aorta, which is normal in caliber and demonstrates standard 3-vessel arch anatomy. Heart: The heart is enlarged and without pericardial effusion. The coronary arteries are densely calcified. Lungs and pleural spaces: There are foci of bibasilar atelectasis. No airspace consolidation or pleural effusion is seen. The trachea and central airways are clear. No pneumothorax is identified. Mediastinum: There is no mediastinal lymphadenopathy. Lelia: Grossly clear but not well assessed without IV contrast. Axillae: There is no axillary lymphadenopathy. Upper abdomen: There is a small hiatal hernia. Cholecystectomy clips are noted. There is a large duodenal diverticulum. The kidneys demonstrate cortical atrophy. A right renal cyst measures up to 3.2 cm. An exophytic lesion arising from left upper pole measures 1.6 cm. This does not meet CT criteria for a simple cyst. The liver demonstrates a nodular surface contour. This suggests early changes of cirrhosis. There is glandular atrophy of the pancreas. Mild gynecomastia is observed. The spleen is enlarged, measuring 14.8 cm in length. Skeletal structures: The skeletal structures are osteopenic. No lytic or blastic bony lesions are seen. Degenerative change and mild scoliosis are noted throughout the thoracic spine. There are right posterior 8th through 10th rib fractures. IMPRESSION: 1. There is no airspace consolidation or pleural effusion. 2. There are nondistracted right posterior 8th through 10th rib fractures. 3. There is nodularity of the hepatic surface contour suggesting early changes of cirrhosis. 4. There is an indeterminant 1.6 cm exophytic lesion arising from the upper pole of the left kidney. This does not meet CT criteria for a simple cyst. This may reflect a small complex cyst and follow-up with a renal ultrasound is recommended for further assessment and to exclude underlying solid lesion. 5. Cardiomegaly. 6. Splenomegaly. 7. The thyroid gland is enlarged and heterogeneous, and there are numerous thyroid nodules and calcifications. Follow-up with a nonemergent thyroid ultrasound is recommended for further assessment. 8. Additional changes as detailed above. ASSESSMENT & PLAN: Pneumonia Bibasilar infiltrate.CT of the Chest as above Hypoxic on presentation Was on Vanco and Zosyn Clinically much better MRSA -negative Vanco and later on Zosyn discontinued Will change to Levaquin on discharge Started on Levaquin and will continue for 5 more days History of chronic obstructive pulmonary disease. Does not have Exacerbation Continue current medication Does not use any oxygen Abnormal CT of the Abdomen and Pelvis;; Please compare with CT of 2016 1. No renal, ureteral, or bladder calculi identified 2. No evidence of bowel obstruction. No evidence of free air 3. Bilateral renal cysts. 16 mm hyperdense left renal mass. While likely are presenting a hyperdense cyst, a solid renal neoplasm cannot be excluded 4. No evidence of acute diverticulitis 5. Mildly thickened appendix, but no evidence of periappendiceal inflammatory change. This may represent a normal variant. Clinical follow-up is advocated. 6. Bilateral lower lobe bronchial wall thickening with right lower lobe mucus plugging. 7 mm right middle lobe pulmonary nodule. This is statistically inflammatory. Short-term follow-up is recommended. Compared with the CT of 2016 - Pulmonary nodule seems to be Inflammatory Needs to be followed up in 6 weeks Polymyalgia rheumatica and also history of monoclonal gammopathy. Kidney function seems to be stable at this time. Continue with prednisone and current medications. History of cerebrovascular accident. Requires assistance with ADLs. We will get physical therapy evaluation while in the hospital. Hypertension. Blood pressure seems to be controlled. Continue with amlodipine. Hypothyroidism. Continue with current medications. History of gastrointestinal bleed. Continue with omeprazole. No evidence of bleeding at this time. We will hold the NSAIDs. Chronic pain syndrome, has been on methadone. Continue current medications Deep venous thrombosis prophylaxis with subcutaneous heparin. Gastrointestinal prophylaxis with omeprazole. Code status. As per the note, he does have a POLST and he will be a full code. Discharge to [facility] today Vital Signs: Date Time Temp Pulse Resp B/P (MAP) Pulse Ox O2 Delivery O2 Flow Rate FiO2 01/31/17 10:58 Room Air 01/31/17 07:50 36.6 73 20 155/83 (107) 92 Room Air 01/31/17 00:30 36.8 96 18 158/89 (112) 92 Room Air 01/31/17 00:00 Room Air 01/30/17 16:00 95 Room Air 01/30/17 15:41 95 Room Air 01/30/17 15:08 36.8 78 20 168/88 (114) 95 Room Air 01/30/17 11:53 36.7 76 18 159/84 (109) 94 Room Air 01/30/17 11:38 Room Air Lab Results: Results Past 24 Hours Test 01/30/17 14:02 Range/Units White Blood Count 10.97 4.8-10.8 K/uL Red Blood Count 4.34 4.7-6.1 M/uL Hemoglobin 11.1 14.0-18.0 g/dL Hematocrit 34.7 42-52 % Mean Corpuscular Volume 80.0 80-100 fL Mean Corpuscular Hemoglobin 25.6 25-34 pg Mean Corpuscular Hemoglobin Concent 32.0 32-36 g/dl RDW Standard Deviation 53.5 36.4-46.3 fL RDW Coefficient of Variation 18.0 11.5-14.5 % Platelet Count 216 130-400 K/uL Mean Platelet Volume 9.1 7.4-10.4 fL Sodium Level 138 136-145 mmol/L Potassium Level 4.0 3.5-5.1 mmol/L Chloride Level 99 98-107 mmol/L Carbon Dioxide Level 31 21-32 mmol/L Anion Gap 8.0 3-11 mmol/L Blood Urea Nitrogen 16 7-18 mg/dl Creatinine 1.20 0.60-1.40 mg/dl Est Creatinine Clear Calc Drug Dose 79.5 ml/min Estimated GFR () 67.7 Estimated GFR (Non- 58.4 BUN/Creatinine Ratio 13.1 10-20 Random Glucose 172 70-99 mg/dl Calcium Level 9.1 8.5-10.1 mg/dl
[2017-01-31] MEDS ORDERED: LVQ750 PO ×3 (10:45→10:58)
--- NOTE | 2017-01-31 10:48 | Discharge Instructions ---
Discharge Instructions Date of Service Jan 31, 2017. Admission Reason for Admission: Pneumonia Discharge Discharge Diagnosis / Problem: Pneumonia Discharge Goals Goal(s): Prevent Disease Progression Activity Recommendations Activity Level: Assistance Required Therapies: Physical Therapy, Occupational Therapy . Additional Information Patient informed of condition: Yes Advance Directives: No DNR: No Level of Care: Skilled Communicable Disease: No Prognosis: Stable Oxygen at (LPM): 2 liters/min via NC PRN Concepcion Catheter: No Instructions / Follow-Up Instructions / Follow-Up Please make an appointment with your PCP in 1 week following discharge from the Facility Current Hospital Diet Patient's current hospital diet: AHA Diet (Heart Healthy) Discharge Diet Recommended Diet: AHA Diet (Heart Healthy) Pending Studies Studies pending at discharge: no Physician Orders On Transfer POLST Discussion: with POLST completion Medical Emergencies . Who to Call and When: Medical Emergencies: If at any time you feel your situation is an emergency, please call 911 immediately. . Non-Emergent Contact Non-Emergency issues call your: Primary Care Provider . Past History Medical & Surgical History: (1) Cough (2) CVA (cerebral infarction) (3) COPD (chronic obstructive pulmonary disease) (4) GI bleed (5) Sleep apnea (6) Hypothyroidism (7) PMR (polymyalgia rheumatica) (8) Chronic pain syndrome (9) Monoclonal gammopathy (10) Pneumonia (11) S/P small bowel resection (12) H/O hernia repair (13) S/P cholecystectomy (14) H/O esophagogastroduodenoscopy . "Provider Documentation" section prepared by Dario Knapp. . Core Measure Problem Core Measures: None
[2017-01-31] MEDS ORDERED: LEVOFLOXACIN 750 MG TAB PO SCH (11:00)
[2017-01-31 11:42] VITALS: BP 155/83; PULSE 73; TEMP 36.6; O2SAT 92
--- NOTE | 2017-01-31 11:44 | Discharge Summary ---
Discharge Summary Date of Service Jan 31, 2017. Discharge Summary Admission Date: Jan 28, 2017 at 17:57 Discharge Date: Jan 31, 2017 [facility] Principal Diagnosis: Pneumonia,Abnormal CT of the Abdomen/Pelvis and Chest-needs follow up.PMR, Chronic pain Secondary Diagnoses/Problems: Please see H&P and Hospital Progress note Medication Reconciliation New Medications: Levofloxacin (Levofloxacin) 750 Mg Tab 750 MG PO DAILY@11 for 5 Days, #5 TAB Continued Medications: Amlodipine (Norvasc) 10 Mg Tab 10 MG PO QAM Aspirin (Aspirin Ec) 81 Mg Tab 81 MG PO QAM Bimatoprost (Lumigan) 0.01 % Ro 1 DROPS OP HS Brinzolamide-Brimonidine Tartr (Simbrinza) 1 Maxine Maxine 1 DROP OPR TID Bromfenac Sodium (Ophth) (Bromfenac) 0.09 % Ro 1 DROPS OPR DAILY, #2.5 ML 1 Refill Bumetanide (Bumex) 0.5 Mg Tab 0.5 MG PO DAILY Cholecalciferol (Vitamin D3) 2,000 Unit Tab 2000 UNITS PO QAM Ciprofloxacin HCl (Otic) (Ciprofloxacin) 0.2 % Ro 1 DROP OPR QID Cyanocobalamin (Vitamin B-12) 1,000 Mcg Tab 1000 MCG PO QAM Donepezil Hydrochloride (Donepezil Hcl) 5 Mg Tab 1 TAB PO HS Duloxetine Hcl (Cymbalta) 60 Mg Cap 60 MG PO QAM Fish Oil ([place]-3) 1 Ea Cap 1 CAP PO QAM Gabapentin (Neurontin) 600 Mg Tab 600 MG PO TID Hctz/Losartan (Hyzaar 25MG/100MG) 1 Ea Tab 1 TAB PO QAM Ipratropium-Albuterol (Combivent Respimat) 1 Aer Aer 1 PUFFS INH QID PRN for SOB/Wheezing, INH Ipratropium-Albuterol (Duoneb) 3 Ml Nebu 1 TREATMENT INH Q6H PRN for Wheezing Lactobacillus (Acidophilus) 1 Cap Cap 1 CAP PO QAM Levothyroxine Sodium (Levothyroxine Sodium) 25 Mcg Tab 1 TAB PO MWF Levothyroxine Sodium (Levothyroxine Sodium) 25 Mcg Tab 2 TABS PO 4XWK SUN,TUES,THURS,SAT Melatonin (Kp Melatonin) 3 Mg Tab 3 MG PO HS Meloxicam (Meloxicam) 15 Mg Tab 15 MG PO QAM Methadone HCl (Methadone HCl) 10 Mg Tab 30 MG PO HS Methadone Hcl (Dolophine) 10 Mg Tab 40 MG PO QAM Multivitamin (Multivitamin) Tab 1 TAB PO QAM Omeprazole (Prilosec) 20 Mg Cap 20 MG PO QAM Potassium Chloride (Micro-K Ext Rel) 10 Meq Capcr 10 MEQ PO DAILY, CAP Prednisolone Acetate (Ophth) (Prednisolone Acetate) 1 % Maxine 1 DROPS OP QID for 10 Days, #10 ML Prednisone (Prednisone) 10 Mg Tab 10 MG PO BID, TAB Tamsulosin Hcl (Flomax) 0.4 Mg Cap 0.4 MG PO BID Travoprost (Travatan Z) 0.004 % Teo 1 DROPS OP HS Trazodone Hcl (Trazodone) 100 Mg Tab 100 MG PO HS Discontinued Medications: Cephalexin Monohydrate (Keflex) 500 Mg Cap 500 MG PO BID, CAP STARTED Saturday01/18/17 Admission Information HPI (per Admitting provider): DATE OF ADMISSION: 01/28/2017 PRIMARY CARE PHYSICIAN: Dr. Meyers. HISTORY OF PRESENT COMPLAINT: He is a 76-year-old male, obese with significant past medical history of a stroke, monocular gammopathy, polymyalgia rheumatica, depression, COPD, hypothyroidism. Apparently, was sent in from [facility] with complaints of cough, congestion, shortness of breath and also some abdominal pain. History is obtained from the . The patient himself does not talk much and only complaint was some shortness of breath, not feeling well, some chest compression and upper groin pain. Denies of any fever, chills or rigors. He was noted to have low saturation and also swelling of the legs and some shortness of breath. In the ER, he was hemodynamically stable, afebrile with low saturation of 89 on room air and relevant test showed a white count to be 18,[address] scan of the abdomen did show bilateral lower zones inflammatory changes and from that point, he was started with intravenous vancomycin and Zosyn after taking blood culture and advised for admission with a probable diagnosis of bibasilar pneumonia. PAST MEDICAL HISTORY: Significant for depression, polymyalgia rheumatica, monoclonal gammopathy, TIA with a history of stroke, history of lower GI bleed, hypertension, hypothyroidism, and chronic pain syndrome. PAST SURGICAL HISTORY: Significant for hernia repair, cholecystectomy and also a small bowel resection, cataract surgery. FAMILY HISTORY: Father had diabetes. Mother had heart disorder, hypertension. Father had a stroke as well. SOCIAL HISTORY: He is . He lives at [facility] for the last 6 months. He requests assistance with ADLs. He is a former smoker. Does not use any alcohol. ALLERGIES: IODINATED CONTRAST MEDIA. MEDICATIONS: As an outpatient, he has been on Bumex 0.4 mg daily, Keflex as directed, fish oil 1 capsule daily, vitamin D3 2000 units daily, meloxicam 15 mg daily, amlodipine 10 mg daily, aspirin 81 mg daily, Lumigan 0.01% one drop Simbrinza 1suspension one drop t.i.d., bromfenac 0.05% 1 drop both eyes daily, ciprofloxacin Hcl otic 0.2% solution one drop q.i.d., vitamin B12 1000 mcg daily, donepezil 5 mg daily, Cymbalta 60 mg daily, Neurontin 600 mg three times daily, Hyzaar one tablet daily, Combivent Respimat one inhalation q.i.d. as needed, DuoNeb 3 mL q. 6 hourly as needed, acidophilus one capsule daily, levothyroxine sodium as directed, melatonin 3 mg daily, methadone 10 mg at night, methadone 10mg tablet 40 mg in the morning, multivitamin 1 tablet daily, omeprazole 20 mg daily, potassium chloride 10 mEq daily, prednisone solution as directed, prednisone 10 mg tablet twice daily, Flomax 0.4 mg b.i.d. and Travatan 0.004% one drop as directed, trazodone 100 mg daily. REVIEW OF SYSTEMS: Not obtainable from the patient. PHYSICAL EXAMINATION: GENERAL: On examination in the Emergency Room, he was not having any acute distress. VITAL SIGNS: Afebrile 37.2, pulse was 75, blood pressure 122/69, saturation 89% on room air and 98% on 3 liters. HEENT: Unremarkable. NECK: Supple. No JVD, no bruit. CHEST: Decreased breath sounds with minimal bibasilar crackles. HEART: S1, S2 regular. ABDOMEN: Soft, benign, nontender, no organomegaly. Bowel sounds present. EXTREMITIES: 1+ edema bilaterally, more on the left than the right. MUSCULOSKELETAL: Did not show any acute arthritis. CENTRAL NERVOUS SYSTEM: He was alert, awake, and oriented. He was generally very weak, but did not have any focal neuro deficit during my examination. LABORATORY DATA: Noted today white count was 18.64, H&H 10.5/33.5, platelet was 218, polys of 64.24%. Venous blood gas pH 7.37, pCO2 64, O2 was 40. Chemistry: Sodium 138, potassium 4.0, chloride 97, carbon dioxide 33, BUN 19, creatinine 1.20, random glucose 154, lactic acid of 3.5, calcium 9.2, magnesium 1.9, bilirubin 0.3. AST 12, ALT 21, alkaline phos 60, troponin was less than 0.015. C-reactive protein 2.76. TSH 0.839. PT/INR unremarkable. IMAGING DATA: Chest x-ray reported as cardiomegaly, limited atelectasis right base, respiratory artifact. CT of the chest reported as pulmonary vascular congestion, mild mid to lower lung interstitial prominences bilaterally. CT of the abdomen and pelvis without contrast reported as no renal, ureteral or bladder calculi, no evidence of bowel obstruction, bilateral renal cyst, 6 mm hyperdense left renal mass comparing with the prior CT scan that was there in 2015. No evidence of acute diverticulitis, mildly thickened appendix but no evidence of periappendicular inflammatory changes, bilateral lower lobe bronchial wall thickening with right lower lobe mucus plugging, 7 mm right middle lobe pulmonary nodule. This is statistically inflammatory and short term followup advised. EKG was in sinus rhythm, rate of 80 per minute, normal axis, right bundle branch block with associated changes, but no significant change noted. IMPRESSION AND PLAN: 1. Bibasilar infiltrate. The patient will be admitted to medical floor. Blood culture has been taken. He was started with Zosyn and vancomycin, we will continue right now. Nasal swab will be checked. We will get oxygen as needed. 2. History of chronic obstructive pulmonary disease. Continue with the current nebulized treatment. Prednisone should be continued as maintenance dose. He does not have any exacerbation. Does not require any additional prednisone at this time. 3. Polymyalgia rheumatica and also history of monoclonal gammopathy. Kidney function seems to be stable at this time. Continue with prednisone and current medications. 4. History of cerebrovascular accident. He seems to be bed bound and requires assistance with ADLs. We will get physical therapy evaluation while in the hospital. 5. Hypertension. Blood pressure seems to be controlled. Continue with amlodipine. 6. Hypothyroidism. Continue with current medications. 7. History of gastrointestinal bleed. Continue with omeprazole. No evidence of bleeding at this time. We will hold the NSAIDs. 8. Chronic pain syndrome, has been on methadone. We will continue with that. No additional pain medicines will be administered except Tylenol and non-narcotic. 9. Deep venous thrombosis prophylaxis with subcutaneous heparin. 10. Gastrointestinal prophylaxis with omeprazole. 11. Code status. As per the note, he does have a POLST and he will be a full code. In my clinical judgment, the beneficiary meets criteria as per CMS for 2 midnight stay in the hospital. Hospital Course Pneumonia Bibasilar infiltrate.CT of the Chest as above Hypoxic on presentation Was on Vanco and Zosyn Clinically much better MRSA -negative Vanco and later on Zosyn discontinued Will change to Levaquin on discharge Started on Levaquin and will continue for 5 more days History of chronic obstructive pulmonary disease. Does not have Exacerbation Continue current medication Does not use any oxygen Abnormal CT of the Abdomen and Pelvis;; Please compare with CT of 2016 1. No renal, ureteral, or bladder calculi identified 2. No evidence of bowel obstruction. No evidence of free air 3. Bilateral renal cysts. 16 mm hyperdense left renal mass. While likely are presenting a hyperdense cyst, a solid renal neoplasm cannot be excluded 4. No evidence of acute diverticulitis 5. Mildly thickened appendix, but no evidence of periappendiceal inflammatory change. This may represent a normal variant. Clinical follow-up is advocated. 6. Bilateral lower lobe bronchial wall thickening with right lower lobe mucus plugging. 7 mm right middle lobe pulmonary nodule. This is statistically inflammatory. Short-term follow-up is recommended. Compared with the CT of 2016 Pulmonary nodule seems to be Inflammatory Needs to be followed up in 6 weeks Polymyalgia rheumatica and also history of monoclonal gammopathy. Kidney function seems to be stable at this time. Continue with prednisone and current medications. History of cerebrovascular accident. Requires assistance with ADLs. We will get physical therapy evaluation while in the hospital. Hypertension. Blood pressure seems to be controlled. Continue with amlodipine. Hypothyroidism. Continue with current medications. History of gastrointestinal bleed. Continue with omeprazole. No evidence of bleeding at this time. We will hold the NSAIDs. Chronic pain syndrome, has been on methadone. Continue current medications Deep venous thrombosis prophylaxis with subcutaneous heparin. Gastrointestinal prophylaxis with omeprazole. Code status. As per the note, he does have a POLST and he will be a full code. Discharge to [facility] today Total time spent on discharge = 35 minutes This includes examination of the patient, discharge planning, medication reconciliation, and communication with other providers. Discharge Instructions Date of Service Jan 31, 2017. Admission Reason for Admission: Pneumonia Discharge Discharge Diagnosis / Problem: Pneumonia Discharge Goals Goal(s): Prevent Disease Progression Activity Recommendations Activity Level: Assistance Required Therapies: Physical Therapy, Occupational Therapy . Additional Information Patient informed of condition: Yes Advance Directives: No DNR: No Level of Care: Skilled Communicable Disease: No Prognosis: Stable Oxygen at (LPM): 2 liters/min via NC PRN Concepcion Catheter: No Instructions / Follow-Up Instructions / Follow-Up Please make an appointment with your PCP in 1 week following discharge from the Facility Current Hospital Diet Patient's current hospital diet: AHA Diet (Heart Healthy) Discharge Diet Recommended Diet: AHA Diet (Heart Healthy) Pending Studies Studies pending at discharge: no Physician Orders On Transfer POLST Discussion: with POLST completion Medical Emergencies . Who to Call and When: Medical Emergencies: If at any time you feel your situation is an emergency, please call 911 immediately. . Non-Emergent Contact Non-Emergency issues call your: Primary Care Provider . Past History Medical & Surgical History: (1) Cough (2) CVA (cerebral infarction) (3) COPD (chronic obstructive pulmonary disease) (4) GI bleed (5) Sleep apnea (6) Hypothyroidism (7) PMR (polymyalgia rheumatica) (8) Chronic pain syndrome (9) Monoclonal gammopathy (10) Pneumonia (11) S/P small bowel resection (12) H/O hernia repair (13) S/P cholecystectomy (14) H/O esophagogastroduodenoscopy . "Provider Documentation" section prepared by Dario Knapp. . Core Measure Problem Core Measures: None <Electronically signed by Dario Knapp M.D.> Signed: 01/31/17 1048 Additional Copies To Chi Meyers M.D.(HUGH)
[2017-01-31] MEDS ORDERED: VANCOMYCIN TROUGH SCH (13:30)
== END 2017-01-31 14:15 | DRG 194 ==
LOC: EDBD 14:09 → C.EDB 14:10 → C.4E 17:57 → ENRESERV 18:48
PROVIDERS: ADMIT Internal Medicine; ATTEND Internal Medicine
DX: J18.9 Pneumonia, unspecified organism (principal); Z68.41 Body mass index [BMI] 40.0-44.9, adult; R09.02 Hypoxemia; J44.9 Chronic obstructive pulmonary disease, unspecified; E03.9 Hypothyroidism, unspecified; M35.3 Polymyalgia rheumatica; D50.9 Iron deficiency anemia, unspecified; D47.2 Monoclonal gammopathy; G89.29 Other chronic pain; F32.9 Major depressive disorder, single episode, unspecified; I10 Essential (primary) hypertension; E66.9 Obesity, unspecified; Z51.81 Encounter for therapeutic drug level monitoring; Z79.899 Other long term (current) drug therapy; Z79.82 Long term (current) use of aspirin; Z79.52 Long term (current) use of systemic steroids; Z79.891 Long term (current) use of opiate analgesic; Z87.01 Personal history of pneumonia (recurrent); Z86.73 Personal history of transient ischemic attack (TIA), and cerebral infarction without residual deficits; Z87.891 Personal history of nicotine dependence; Z83.3 Family history of diabetes mellitus; Z82.49 Family history of ischemic heart disease and other diseases of the circulatory system; Z84.1 Family history of disorders of kidney and ureter; Z82.3 Family history of stroke

== ENCOUNTER → 2017-01-28 | Outpatient (CLI) | payer BC, OTHER ==
[2017-01-28 10:22] LABS: BASO % 0.2 %; BASO ABS # 0.04 K/uL (0-0.2); COMPLETE YES; EOS % 1.3 %; HEMATOCRIT 36.7 % (42-52); IG% 0.8 %; LYMPH % 10.3 %; LYMPH ABS # 1.91 K/uL (1.2-3.4); MEAN CELL VOLUME 80.5 fL (80-100); MEAN CORPUSCULAR HEMOGLOBIN 25.2 pg (25-34); MEAN CORPUSCULAR HGB CONC 31.3 g/dl (32-36); MEAN PLATELET VOLUME 10.3 fL (7.4-10.4); MONO % 5.5 %; NEUT % 81.9 %; PLATELET COUNT 259 K/uL (130-400); RED BLOOD COUNT 4.56 M/uL (4.7-6.1); WHITE BLOOD COUNT 18.61 K/uL (4.8-10.8)
[2017-01-28 10:31] LABS: BLOOD UREA NITROGEN 21 mg/dl (7-18); BUN/CREATININE RATIO 18.9 (10-20); CARBON DIOXIDE 37 mmol/L (21-32); CHLORIDE 98 mmol/L (98-107); GLUCOSE 93 mg/dl (70-99); POTASSIUM 3.2 mmol/L (3.5-5.1); SODIUM 140 mmol/L (136-145)
== END ==
LOC: C.LABUPNIT 10:09
PROVIDERS: ATTEND Nurse Practitioner Family
DX: E87.6 Hypokalemia (principal); D64.9 Anemia, unspecified

== ENCOUNTER → 2017-02-02 | Outpatient (CLI) | payer BC, OTHER ==
[~2017-02-02] MED LIST changes: +BRIN3SUS OPR; +BROM0.0911 OPR; +BUME1TAB42 PO; +CEPH500C2 PO; +CPRDOTS OT; +CPROT OPR; +LCTX PO; +LVQ750 PO; +POTA10CA28 PO; +PRED1SUS17 OP
== END ==
LOC: C.LAB 13:03
PROVIDERS: ATTEND Family Medicine
DX: A04.7 Enterocolitis due to Clostridium difficile (principal)

== ENCOUNTER → 2017-02-04 | Outpatient (CLI) | payer BC, OTHER ==
[2017-02-04 09:50] LABS: BASO % 0.2 %; BASO ABS # 0.02 K/uL (0-0.2); COMPLETE YES; IG% 1.6 %; LYMPH % 13.4 %; LYMPH ABS # 1.32 K/uL (1.2-3.4); MEAN CELL VOLUME 81.6 fL (80-100); MEAN CORPUSCULAR HGB CONC 29.4 g/dl (32-36); MEAN PLATELET VOLUME 10.3 fL (7.4-10.4); MONO % 7.1 %; NEUT % 76.7 %; PLATELET COUNT 223 K/uL (130-400); RED BLOOD COUNT 4.41 M/uL (4.7-6.1); WHITE BLOOD COUNT 9.85 K/uL (4.8-10.8)
[2017-02-04 10:02] LABS: ALT/SGPT 22 U/L (12-78); AST/SGOT 10 U/L (15-37); BLOOD UREA NITROGEN 20 mg/dl (7-18); BUN/CREATININE RATIO 17.9 (10-20); CALCIUM 9.4 mg/dl (8.5-10.1); CARBON DIOXIDE 34 mmol/L (21-32); CHLORIDE 101 mmol/L (98-107); GLUCOSE 110 mg/dl (70-99); POTASSIUM 3.5 mmol/L (3.5-5.1); SODIUM 142 mmol/L (136-145)
[2017-02-04 10:05] LABS: ALB/GLOB RATIO 0.7 (0.9-2); ALKALINE PHOSPHATASE 62 U/L (45-117)
== END ==
LOC: C.LABUPNIT 09:06
PROVIDERS: ATTEND Nurse Practitioner Family
DX: J18.8 Other pneumonia, unspecified organism (principal)

== ENCOUNTER → 2017-02-11 | Outpatient (CLI) | payer BC, OTHER ==
[~2017-02-11] MED LIST changes: -ACET-1311 PO; -BISA10SU3 PR; -CEPH500C2 PO; -CLB100 PO; -CPRDOTS OT; -LCTX PO; -MOML PO; -SODIENE PR
[2017-02-11 08:52] LABS: BLOOD UREA NITROGEN 26 mg/dl (7-18); BUN/CREATININE RATIO 28.2 (10-20); CALCIUM 8.7 mg/dl (8.5-10.1); CARBON DIOXIDE 33 mmol/L (21-32); CHLORIDE 103 mmol/L (98-107); CREATININE 0.91 mg/dl (0.60-1.40); GLUCOSE 82 mg/dl (70-99); POTASSIUM 3.3 mmol/L (3.5-5.1); SODIUM 143 mmol/L (136-145)
== END ==
LOC: C.LABUPNIT 07:48
PROVIDERS: ATTEND Nurse Practitioner Family
DX: I25.119 Atherosclerotic heart disease of native coronary artery with unspecified angina pectoris (principal)

== ENCOUNTER → 2017-02-13 | Outpatient (CLI) | payer BC, OTHER ==
--- NOTE | 2017-02-13 15:05 | DIAGNOSTIC IMAGING REPORT ---
(CHEST) THORAX WITHOUT CLINICAL HISTORY: 76 years-old Male presenting with follow-up 7 mm pulmonary nodule. TECHNIQUE: Multidetector CT imaging of the chest was performed without the use of intravenous contrast. IV contrast: None. A dose lowering technique was used consistent with the principles of ALARA (as low as reasonably achievable). COMPARISON: 01/28/2017 and 06/15/2015. CT DOSE (mGy.cm): The estimated cumulative dose is 756.24 mGycm. FINDINGS: Process Development Technician topogram: Unremarkable. On soft tissue windows, multinodular goiter. No axillary, supraclavicular, or mediastinal lymphadenopathy. Evaluation of the eder limited without intravenous contrast. Atherosclerosis of the aorta. Coronary artery and aortic valve calcification. Normal heart size. No pericardial or pleural effusion. Cholecystectomy clips. Moderate pancreatic parenchymal atrophy. Exophytic hypodense lesion arising from the left kidney possibly minimally complex cyst containing proteinaceous or hemorrhagic material. On lung windows, overall better aeration of the lungs. Focal nodular opacity along the major fissure in the right middle lobe (series 4 image 29), unchanged. Minimal dependent changes likely atelectasis. Airways patent. On bone windows, old rib fractures of several posterior right ribs. Degenerative changes of the spine. IMPRESSION: 1. Stable nodular opacity in the right middle lobe, unchanged since 06/15/2015. No new pulmonary nodule. Please refer to below summary of Fleischner Society 2017 recommendations for follow-up of incidental CT nodules (H Javier et al. Guidelines for management of incidental pulmonary nodules detected on CT images: From the Fleischner Society 2017. Radiology 2017; 284: 228-243.) SOLID NODULES Single nodule; size < 6 mm * Low risk patients: No routine follow-up * High risk patients: Optional CT at 12 months Single nodule; size 6-8 mm * Low risk patients: CT at 6-12 months, then consider CT at 18-24 months * High risk patients: CT at 6-12 months, then at 18-24 months Single nodule; size > 8 mm * Either low or high risk patients: Considered CT at 3 months, PET/CT, or tissue sampling Multiple nodules; size < 6 mm * Low risk patients: No routine follow up * High risk patients: Optional CT at 12 months Multiple nodules; size 6-8 mm * Low risk patients: CT at 3-6 months, then consider CT at 18-24 months * High risk patients: CT at 3-6 months, then at 18-24 months Multiple nodules; size > 8 mm * Low risk patients: CT at 3-6 months, then consider at 18-24 months * High risk patients: CT at 3-6 months, then at 18-24 months Note: These guidelines apply to incidental nodules. These guidelines do not apply to patients younger than 35 years, immunocompromised patients, or patients with cancer. * Low risk patients: Minimal or absent history of smoking and/or other known risk factors * High risk patients: History of smoking, exposure to other carcinogens, emphysema, fibrosis, upper lobe location, family history of lung cancer, etc. * If a nodule up to 8 mm is partly solid or is ground glass, further follow-up is required after 24 months to exclude possible slow growing adenocarcinoma. SUBSOLID NODULES Single ground-glass nodule * Nodule size < 6 mm: No routine follow-up * Nodule size > or = 6 mm: CT at 6-12 months to confirm persistence, then CT every 2 years until 5 years Single part-solid nodule * Nodule size < 6 mm: No routine follow-up * Nodules size > or = 6 mm: CT at 3-6 months to confirm persistence. If unchanged and solid component remains < 6 mm, annual CT should be performed for 5 years Multiple nodules * Nodule size < 6 mm: CT at 3-6 months. If stable, consider CT at 2 and 4 years. * Nodules size > or = 6 mm: CT at 3-6 months. Subsequent management based on the most suspicious nodule(s) Electronically signed by: Noam Araya M.D. 02/13/2017 3:04 PM Dictated Date/Time: 02/13/2017 2:57 PM
== END ==
LOC: C.CTS 14:41
PROVIDERS: ATTEND Family Medicine
DX: R91.1 Solitary pulmonary nodule (principal)

== ENCOUNTER → 2017-02-15 | Outpatient (CLI) | payer BC, OTHER ==
[~2017-02-15] MED LIST changes: +BROM1SOL8 OPR; +LEVO1TAB33 PO
[2017-02-15 08:51] LABS: INR 0.9 (0.9-1.1); PROTHROMBIN TIME (PATIENT) 9.9 SECONDS (9.0-12.0)
--- NOTE | 2017-02-19 12:15 | CODING QUERY NO DIAGNOSIS ---
: 1940 TREATMENT RENDERED WITHOUT A DIAGNOSIS To promote full compliance with coding requirements relating to patient care, physician participation is requested in all cases of parts room associate uncertainty. Please assist us with providing a copy of the original, signed order including diagnosis for the Potassium and PT/INR that were rendered on 02/15/17. [facility] you [facility] Information Management Once completed, please kindly fax back to [phone] For questions please call [phone]
== END ==
LOC: C.LABUPNIT 08:22
PROVIDERS: ATTEND Nurse Practitioner Family
DX: Z01.89 Encounter for other specified special examinations (principal)

== ENCOUNTER → 2017-02-20 | Outpatient (CLI) | payer BC, OTHER ==
[~2017-02-20] MED LIST changes: -BROM1SOL8 OPR; -LEVO1TAB33 PO
[2017-02-20 09:08] LABS: BLOOD UREA NITROGEN 24 mg/dl (7-18); CALCIUM 8.7 mg/dl (8.5-10.1); CARBON DIOXIDE 32 mmol/L (21-32); CHLORIDE 102 mmol/L (98-107); CREATININE 0.99 mg/dl (0.60-1.40); GLUCOSE 99 mg/dl (70-99); POTASSIUM 3.7 mmol/L (3.5-5.1); SODIUM 140 mmol/L (136-145)
== END ==
LOC: C.LABUPNIT 08:37
PROVIDERS: ATTEND Nurse Practitioner Family
DX: I25.119 Atherosclerotic heart disease of native coronary artery with unspecified angina pectoris (principal)

== ENCOUNTER → 2017-03-06 | Outpatient (CLI) | payer BC, OTHER ==
[~2017-03-06] MED LIST changes: -AMLO-114 PO; +AMLO10TA3 PO; +BROM1SOL8 OPR; +CLB/200 PO; -DONE1TAB11 PO; +DONE5TAB26 PO; +IPRA-64 INH; -IPRASOL4 INH; +KRIL1000 PO; +LEVO1TAB33 PO; +MELO-83 PO; -MELO15TA4 PO; +METH10TA PO
[2017-03-06 09:48] LABS: BASO % 0.2 %; BASO ABS # 0.02 K/uL (0-0.2); EOS % 1.6 %; EOS ABS # 0.19 K/uL (0-0.5); HEMATOCRIT 33.5 % (42-52); HEMOGLOBIN 10.2 g/dL (14.0-18.0); IG# 0.15 K/uL (0.00-0.02); LYMPH % 15.1 %; LYMPH ABS # 1.76 K/uL (1.2-3.4); MEAN CELL VOLUME 81.7 fL (80-100); MEAN CORPUSCULAR HEMOGLOBIN 24.9 pg (25-34); MEAN CORPUSCULAR HGB CONC 30.4 g/dl (32-36); MEAN PLATELET VOLUME 10.2 fL (7.4-10.4); MONO ABS # 0.93 K/uL (0.11-0.59); NEUT % 73.8 %; NEUT ABS # 8.63 K/uL (1.4-6.5); PLATELET COUNT 229 K/uL (130-400); RED CELL DISTRIBUTION WIDTH CV 17.6 % (11.5-14.5); RED CELL DISTRIBUTION WIDTH SD 52.8 fL (36.4-46.3); WHITE BLOOD COUNT 11.68 K/uL (4.8-10.8)
--- NOTE | 2017-03-12 10:33 | CODING QUERY NO DIAGNOSIS ---
TREATMENT RENDERED WITHOUT A DIAGNOSIS : 1940 To promote full compliance with coding requirements relating to patient care, physician participation is requested in all cases of treatment manager uncertainty. Please assist us with providing a diagnosis/symptom for the test(s) below: A diagnosis/symptom was not documented on your Order. A valid diagnosis/symptom is required to bill all insurances. Please remember that we are unable to code a diagnosis of rule out, probable, possible, questionable, or suspected. Tests that require a diagnosis: DOS: 03/06/17 * CBC WITH AUTO DIFFER DIAGNOSIS: Provider Signature: Date: Thank you [facility] Information Management Once completed, please kindly fax back to [phone] For questions please call [phone]
== END ==
LOC: C.LABUPNIT 09:22
PROVIDERS: ATTEND Nurse Practitioner Family
DX: E87.6 Hypokalemia (principal)

== ENCOUNTER → 2017-03-13 | Outpatient (CLI) | payer BC, OTHER ==
[~2017-03-13] MED LIST changes: +AMLO-114 PO; -AMLO10TA3 PO; -BROM0.0911 OPR; -CLB/200 PO; +DONE1TAB11 PO; -DONE5TAB26 PO; -IPRA-64 INH; +IPRASOL4 INH; -KRIL1000 PO; -LVQ750 PO; -MELO-83 PO; +MELO15TA4 PO; -METH10TA PO
[2017-03-13 09:08] LABS: BLOOD UREA NITROGEN 42 mg/dl (7-18); BUN/CREATININE RATIO 19.2 (10-20); CARBON DIOXIDE 29 mmol/L (21-32); CHLORIDE 104 mmol/L (98-107); CREATININE 2.17 mg/dl (0.60-1.40); GLUCOSE 86 mg/dl (70-99); POTASSIUM 4.2 mmol/L (3.5-5.1); SODIUM 141 mmol/L (136-145)
== END ==
LOC: C.LABUPNIT 07:47
PROVIDERS: ATTEND Nurse Practitioner Family
DX: J44.9 Chronic obstructive pulmonary disease, unspecified (principal)

== ENCOUNTER → 2017-03-14 | Outpatient (CLI) | payer BC, OTHER ==
[2017-03-14 09:26] LABS: BLOOD UREA NITROGEN 47 mg/dl (7-18); CALCIUM 8.9 mg/dl (8.5-10.1); CARBON DIOXIDE 28 mmol/L (21-32); CHLORIDE 105 mmol/L (98-107); CREATININE 2.24 mg/dl (0.60-1.40); GLUCOSE 92 mg/dl (70-99); POTASSIUM 4.1 mmol/L (3.5-5.1); SODIUM 140 mmol/L (136-145)
== END ==
LOC: C.LABUPNIT 08:34
PROVIDERS: ATTEND Nurse Practitioner Family
DX: I25.119 Atherosclerotic heart disease of native coronary artery with unspecified angina pectoris (principal)

== ENCOUNTER → 2017-03-15 | Outpatient (CLI) | payer BC, OTHER ==
[~2017-03-15] MED LIST changes: +BROM0.0911 OPR; +LVQ750 PO
[2017-03-15 09:58] LABS: BASO % 0.2 %; BASO ABS # 0.02 K/uL (0-0.2); COMPLETE YES; EOS % 2.1 %; HEMATOCRIT 32.6 % (42-52); IG% 1.5 %; LYMPH % 14.6 %; LYMPH ABS # 1.52 K/uL (1.2-3.4); MEAN CELL VOLUME 81.7 fL (80-100); MEAN CORPUSCULAR HEMOGLOBIN 24.6 pg (25-34); MEAN CORPUSCULAR HGB CONC 30.1 g/dl (32-36); MEAN PLATELET VOLUME 10.4 fL (7.4-10.4); MONO % 9.3 %; NEUT % 72.3 %; PLATELET COUNT 232 K/uL (130-400); RED BLOOD COUNT 3.99 M/uL (4.7-6.1); WHITE BLOOD COUNT 10.38 K/uL (4.8-10.8)
[2017-03-15 10:05] LABS: BLOOD UREA NITROGEN 41 mg/dl (7-18); BUN/CREATININE RATIO 24.5 (10-20); CALCIUM 8.7 mg/dl (8.5-10.1); CARBON DIOXIDE 30 mmol/L (21-32); CHLORIDE 102 mmol/L (98-107); CREATININE 1.67 mg/dl (0.60-1.40); GLUCOSE 128 mg/dl (70-99); POTASSIUM 3.7 mmol/L (3.5-5.1); SODIUM 137 mmol/L (136-145)
[2017-03-15 10:14] LABS: URINE APPEARANCE CLEAR (CLEAR); URINE BILIRUBIN NEG (NEG); URINE COLOR YELLOW; URINE NITRITE NEG (NEG); URINE SPECIFIC GRAVITY 1.022 (1.000-1.030); UROBILINOGEN NEG (NEG)
[2017-03-15 10:25] LABS: MANUAL MICROSCOPIC REQUIRED? NO; REVIEW REQ? NO
== END | disposition home or self-care (01) ==
LOC: C.LABUPNIT 09:07
PROVIDERS: ATTEND Nurse Practitioner Family
DX: Z01.89 Encounter for other specified special examinations (principal)

== ENCOUNTER → 2017-03-18 | Outpatient (CLI) | payer BC, OTHER ==
[~2017-03-18] MED LIST changes: -BROM0.0911 OPR; -LVQ750 PO
[2017-03-18 10:51] LABS: BLOOD UREA NITROGEN 24 mg/dl (7-18); BUN/CREATININE RATIO 19.4 (10-20); CALCIUM 8.7 mg/dl (8.5-10.1); CARBON DIOXIDE 29 mmol/L (21-32); CHLORIDE 102 mmol/L (98-107); CREATININE 1.23 mg/dl (0.60-1.40); GLUCOSE 141 mg/dl (70-99); POTASSIUM 3.6 mmol/L (3.5-5.1); SODIUM 140 mmol/L (136-145)
== END ==
LOC: C.LABUPNIT 09:10
PROVIDERS: ATTEND Nurse Practitioner Family
DX: I25.111 Atherosclerotic heart disease of native coronary artery with angina pectoris with documented spasm (principal)

== ENCOUNTER → 2017-03-22 | Outpatient (CLI) | payer BC, OTHER ==
[2017-03-22 08:44] LABS: BASO % 0.1 %; BASO ABS # 0.01 K/uL (0-0.2); COMPLETE YES; EOS % 1.7 %; HEMATOCRIT 30.2 % (42-52); IG% 0.9 %; LYMPH ABS # 1.36 K/uL (1.2-3.4); MEAN CELL VOLUME 81.2 fL (80-100); MEAN CORPUSCULAR HGB CONC 30.8 g/dl (32-36); MEAN PLATELET VOLUME 10.2 fL (7.4-10.4); MONO % 7.3 %; PLATELET COUNT 200 K/uL (130-400); RED BLOOD COUNT 3.72 M/uL (4.7-6.1); WHITE BLOOD COUNT 9.73 K/uL (4.8-10.8)
[2017-03-22 08:49] LABS: BLOOD UREA NITROGEN 20 mg/dl (7-18); CARBON DIOXIDE 32 mmol/L (21-32); CHLORIDE 101 mmol/L (98-107); GLUCOSE 132 mg/dl (70-99); POTASSIUM 3.5 mmol/L (3.5-5.1); SODIUM 140 mmol/L (136-145)
== END ==
LOC: C.LABUPNIT 08:19
PROVIDERS: ATTEND Nurse Practitioner Family
DX: I25.9 Chronic ischemic heart disease, unspecified (principal)

== ENCOUNTER → 2017-03-25 | Day surgery (SDC) | payer BC, OTHER ==
--- NOTE | 2017-03-12 16:16 | PAT Medication Instructions ---
Service Date Mar 12, 2017. Current Home Medication List Amlodipine (Norvasc), 10 MG PO QAM Aspirin (Aspirin Ec), 81 MG PO QAM Bimatoprost (Lumigan), 1 DROPS OP HS Brinzolamide-Brimonidine Tartr (Simbrinza), 1 DROP OPR TID Bromfenac Sodium (Ophth) (Bromfenac), 1 DROP OPR DAILY Bumetanide (Bumex), 0.5 MG PO BID Cholecalciferol (Vitamin D3), 2,000 UNITS PO QAM Ciprofloxacin HCl (Otic) (Ciprofloxacin), 1 DROP OPR QID Cyanocobalamin (Vitamin B-12), 1,000 MCG PO QAM Donepezil Hydrochloride (Donepezil Hcl), 1 TAB PO HS Duloxetine Hcl (Cymbalta), 60 MG PO QAM Fish Oil (Morrison-3), 1 CAP PO QAM Gabapentin (Neurontin), 600 MG PO TID Hctz/Losartan (Hyzaar 25MG/100MG), 1 TAB PO QAM Ipratropium-Albuterol (Combivent Respimat), 1 PUFFS INH QID PRN for SOB/Wheezing Ipratropium-Albuterol (Duoneb), 1 TREATMENT INH Q6H PRN for Wheezing Lactobacillus (Acidophilus), 1 CAP PO QAM Levofloxacin (Levaquin), 500 MG PO DAILY Levothyroxine Sodium (Levothyroxine Sodium), 1 TAB PO MWF Levothyroxine Sodium (Levothyroxine Sodium), 2 TABS PO 4XWK Melatonin (Kp Melatonin), 3 MG PO HS Meloxicam (Meloxicam), 15 MG PO QAM Methadone HCl (Methadone HCl), 30 MG PO HS Methadone Hcl (Dolophine), 40 MG PO QAM Multivitamin (Multivitamin), 1 TAB PO QAM Omeprazole (Prilosec), 20 MG PO QAM Potassium Chloride (Micro-K Ext Rel), 20 MEQ PO BID Prednisolone Acetate (Ophth) (Prednisolone Acetate), 1 DROPS OP QID Prednisone (Prednisone), 10 MG PO BID Tamsulosin Hcl (Flomax), 0.4 MG PO BID Travoprost (Travatan Z), 1 DROPS OP HS Trazodone Hcl (Trazodone), 100 MG PO HS Medication Instructions For Your Scheduled Surgery - Check with surgeon for instructions: Aspirin (Aspirin Ec), 81 MG PO QAM Bimatoprost (Lumigan), 1 DROPS OP HS Travoprost (Travatan Z), 1 DROPS OP HS Brinzolamide-Brimonidine Tartr (Simbrinza), 1 DROP OPR TID Bromfenac Sodium (Ophth) (Bromfenac), 1 DROP OPR DAILY Ciprofloxacin HCl (Otic) (Ciprofloxacin), 1 DROP OPR QID Prednisolone Acetate (Ophth) (Prednisolone Acetate), 1 DROPS OP QID Meloxicam (Meloxicam), 15 MG PO QAM - Continue as directed: Levofloxacin (Levaquin), 500 MG PO DAILY - Hold the following medications 2 weeks prior to surgery: Fish Oil (Morrison-3), 1 CAP PO QAM - Hold the following medications the morning of surgery: Cholecalciferol (Vitamin D3), 2,000 UNITS PO QAM Cyanocobalamin (Vitamin B-12), 1,000 MCG PO QAM Lactobacillus (Acidophilus), 1 CAP PO QAM Bumetanide (Bumex), 0.5 MG PO BID Potassium Chloride (Micro-K Ext Rel), 20 MEQ PO BID Hctz/Losartan (Hyzaar 25MG/100MG), 1 TAB PO QAM Multivitamin (Multivitamin), 1 TAB PO QAM - Take the following medications the morning of surgery with a sip of water OTHERWISE NOTHING TO EAT OR DRINK AFTER MIDNIGHT: Amlodipine (Norvasc), 10 MG PO QAM Prednisone (Prednisone), 10 MG PO BID Tamsulosin Hcl (Flomax), 0.4 MG PO BID Ipratropium-Albuterol (Combivent Respimat), 1 PUFFS INH QID PRN for SOB/Wheezing Gabapentin (Neurontin), 600 MG PO TID Ipratropium-Albuterol (Duoneb), 1 TREATMENT INH Q6H PRN for Wheezing Levothyroxine Sodium (Levothyroxine Sodium), 1 TAB PO MWF Levothyroxine Sodium (Levothyroxine Sodium), 2 TABS PO 4XWK Duloxetine Hcl (Cymbalta), 60 MG PO QAM Omeprazole (Prilosec), 20 MG PO QAM Methadone Hcl (Dolophine), 40 MG PO QAM - Take the following medications as scheduled the night before surgery: Trazodone Hcl (Trazodone), 100 MG PO HS Melatonin (Kp Melatonin), 3 MG PO HS Prednisone (Prednisone), 10 MG PO BID Tamsulosin Hcl (Flomax), 0.4 MG PO BID Ipratropium-Albuterol (Combivent Respimat), 1 PUFFS INH QID PRN for SOB/Wheezing Gabapentin (Neurontin), 600 MG PO TID Ipratropium-Albuterol (Duoneb), 1 TREATMENT INH Q6H PRN for Wheezing Methadone HCl (Methadone HCl), 30 MG PO HS Donepezil Hydrochloride (Donepezil Hcl), 1 TAB PO HS Bumetanide (Bumex), 0.5 MG PO BID Potassium Chloride (Micro-K Ext Rel), 20 MEQ PO BID If you have any questions please call us at [phone] or [phone] or [phone]
[2017-03-12 16:54] VITALS: Ht 188 cm; Wt 141.4 kg
[~2017-03-25] VITALS: Ht 188 cm; Wt 141.4 kg
[~2017-03-25] MED LIST changes: +500ML BSSPLUS 0.5ML EPI1:1000 IRRIG ONE; +ACETAMINOPHEN 325 MG TAB PO PRN; +ATROPINE SULFATE 0.1 MG/ML 5ML SYR IV PRN; +ATROPINE SULFATE 1% OP OINT PER APPLICATION CHARGE ONE; +BSS FLUSH ONE; +BUPIVACAINE HCL 0.75% 10 ML AMP/VIAL ONE; +CEFAZOLIN SOD 1 GM VIAL ONE; +DEXAMETHASONE SOD INJ 4 MG/ML VIAL ONE; +EpHEDrine SULFATE INJ 50 MG/ML AMP IV PRN; +EpINEphrine INJ 1MG/ML AMP 1 MG/ML AMP ONE; +FENTANYL CITRATE INJ 50 MCG/1 ML 2 ML VIAL ONE; +HYALURONIDASE HUMAN 150 UNIT/ML INJ ONE; +INDOCYANINE GREEN 25 MG/10 ML ONE; +LACTATED RINGER'S 1000ML 500 ML IV SCH; +LIDOCAINE HCL 2% 2 ML VIAL (20MG/ML) ONE; +MIDAZOLAM HCL 1 MG/ML 2ML VIAL ONE; +NEOMYCIN/POLYMYX/DEXAMETH OP OINT PER APP CHARGE ONE; +OCUCOAT 1 ML SOLN IO ONE; +ONDANSETRON INJ 2 MG/ML 2 ML VIAL ONE; +POVIDONE-IODINE OP SOLN (SURGERY CNTR CHARGING ONLY) ONE; +PROPARACAINE 0.5% OP SOLN PER DROP CHARGE OPL SCH; +PROPOFOL IV EMULSION 10 MG/ML 20 ML VIAL IV ONE; +TIMOLOL MALEATE 0.5% OP SOLN PER DROP CHARGE ONE; +VANCOMYCIN HCL 1000MG/20ML VIAL ONE
--- NOTE | 2017-03-25 08:12 | History & Physical Bridge - SC ---
H&P Re-Evaluation Bridge Note: pt has macular hole left eye and is having vitrectomy left eye. I have examined the patient, reviewed the History & Physical and in the interval since the performance of the History & Physical I have noted the following changes of clinical significance: No changes noted
[2017-03-25] MEDS: PHENYLEPHRINE HCL 2.5% OP SOLN PER DROP CHARGE OPL SCH ×2 (08:54→08:58)
[2017-03-25] MEDS: TROPICAMIDE 1% OP SOLN PER DROP CHARGE OPL SCH ×2 (08:54→08:59)
--- NOTE | 2017-03-25 10:31 | [facility] Operative Report ---
Operative Report Date of Service Mar 25, 2017. Operative Report PREOPERATIVE DIAGNOSIS: Macular hole, left eye. ICD10 CODE: H35.342 POSTOPERATIVE DIAGNOSIS: same. PROCEDURE: 1. Pars plana vitrectomy, 23 gauge. 2. Membrane peeling of the internal limiting membrane. 3. Fluid-air exchange. 4. Air-gas exchange w/ SF6 20 %. All to the left eye. CPT CODE: 67651 SURGEON: Rod Whalen D.O. COMPLICATIONS: None. ESTIMATED BLOOD LOSS: None. SPECIMENS: None. ANESTHESIA: Retrobulbar block and MAC. INDICATIONS FOR PROCEDURE: The patient has a macular hole that is visually significant. Vitrectomy surgery is indicated to decrease risk of vision loss and potentially improve vision. CONSENT: The risks, benefits and alternatives were discussed with the patient including but not limited to decreased visual acuity, failure to achieve desired results, loss of the eye, infection, pain, glaucoma, lens changes, retinal tears, retinal detachment, the need for more procedures, drooping of the eyelid, blindness, and double vision. The patient is aware of risks and consents to the surgery. Consent is signed and on the chart. OPERATION AND FINDINGS: The patient was brought to the operating room where the patient was identified by name, date, and medical record number. The surgical site was confirmed with the informed written consent. The patient was sedated by the anesthesiology team after which a 50:50 mixture of 2% lidocaine and 0.75% bupivacaine with hyaluronidase was administered in a standard retrobulbar fashion. A total of 4 ml was administered without difficulty. The patient was then prepped and draped in the usual sterile manner for retinal surgery. A wire lid speculum was placed and an Eric 23-gauge trocar cannula system was employed. The inferior temporal trocar cannula was first placed in an angled fashion 3.75mm posterior to the surgical limbus and the infusion cannula was inserted into this cannula after which the intravitreal position was verified prior to turning the infusion on. Two more trocar cannulas were then inserted in an angled fashion, one in the superior temporal, and one in the superior nasal quadrant both 3.75mm posterior to the surgical limbus. A light pipe and vitrector were then introduced into the eye and the BIOM wide angle viewing system was brought into place. Standard core vitrectomy was performed and the vitreous was insured to be totally detached from the posterior pole with the aid of the vitrector. Next 0.05ml of indocyanine green was placed over the macular surface to stain the internal limiting membrane. This was washed from the eye after 10 seconds. At this point a flat contact lens was placed on the surface of the eye and a flex scraper and ILM forceps were then used to gently peel the internal limiting membrane surrounding the macular hole without difficulty. At this point scleral depression was performed for 360 degrees and no retinal tears or detachments were noted. A soft tip cannula was used to perform a fluid- air exchange. Next, SF6 20% was injected in through the infusion cannula for a complete gas fill of the eye. The trocar cannulas were then removed and found to be air tight. The intraocular pressure was found to be within normal limits by palpation and subconjunctival injections of Kefzol and dexamethasone were administered inferiorly and superiorly. The wire lid speculum was removed. Maxitrol and timolol were applied to the surface of the eye. A light patch and shield were taped over the surface of the eye and the patient left the Operating Room in stable condition having tolerated the procedure well. DISPOSITION: A gas bracelet was placed on the patients wrist. The patient was instructed to maintain a face down position overnight. The patient is to call immediately if there are any problems overnight. I attest to the content of the Intraoperative Record and any orders documented therein. Any exceptions are noted below.
--- NOTE | 2017-03-25 10:32 | Discharge Instructions-SurgCtr ---
Discharge Instructions Date of Service Mar 25, 2017. Visit Reason for Visit: Left Eye Macular Hole Discharge Discharge Diagnosis / Problem: same Discharge Goals Goal(s): Improve function Activity Recommendations Activity Limitations: per Instructions/Follow-up section Anesthesia . Post Anesthesia Instructions: If you have had General Anesthesia or IV Sedation: * Do not drive today. * Resume driving when surgeon permits. * Do not make important decisions or sign legal documents today. * Call surgeon for: 1. Temperature elevations greater than 101 degrees F. 2. Uncontrollable pain. 3. Excessive bleeding. 4. Persistent nausea and vomiting. 5. Medication intolerance (nausea, vomiting or rash). * For nausea and vomiting use only clear liquids such as: tea, soda, bouillon until nausea subsides, then gradually increase diet as tolerated. * If you have any concerns or questions, call your surgeon's office. If physician is unavailable and it is an emergency, call 911 or go to the nearest emergency room. . Instructions / Follow-Up Instructions / Follow-Up * May take Tylenol if needed for discomfort. * Do NOT lay flat on back and position head as follows: face forward with chin down as much as possible. Sleep on right side or with face down. * Do NOT remove green bracelet until instructed to do so by your surgeon and follow these precautions: * No air travel * No travel above 2500 feet * No nitrous oxide (N2O). * Do NOT remove eye shield. * NO straining, heavy lifting (>15 pounds) or bending below waist. * Avoid getting water or soap directly into operative eye. * Do NOT rub eye. If you experience increasing eye pain not relieved by medication, please contact us immediately at [phone]. If you are unable to reach someone at the above number, call [phone] and ask to speak with the EYE DOCTOR CIVIL ENGINEERING PROJECT DESIGNER. Inform them that you are a Dr. Whalen patient who had recent surgery. Diet Recommendations Home Diet: resume previous diet Procedures Procedures Performed: Left Eye 23 Gauge Vitrectomy, Membrane Peeling, Installation of SF6 Pending Studies Studies pending at discharge: no Medical Emergencies . Who to Call and When: Medical Emergencies: If at any time you feel your situation is an emergency, please call 911 immediately. . Non-Emergent Contact Non-Emergency issues call your: Land Management Supervisor . . "Provider Documentation" section prepared by Rod Whalen. .
[2017-03-25 10:35] VITALS: TEMP 36.3
[2017-03-25 11:15] VITALS: BP 145/93; PULSE 75; O2SAT 97
--- NOTE | 2017-03-25 11:17 | Anesthesia Progress Nt - [facility] ---
Anesthesia Post Op Note Date & Time Mar 25, 2017 at 11:17 Vital Signs Pain Intensity: 0 Vital Signs Past 12 Hours Date Time Temp Pulse Resp B/P (MAP) Pulse Ox O2 Delivery O2 Flow Rate FiO2 03/25/17 10:35 36.3 81 18 178/82 (114) 97 Room Air 03/25/17 08:46 36.4 80 24 151/73 (99) 96 Room Air Notes Mental Status: alert / awake / arousable, participated in evaluation Pt Amnestic to Procedure: Yes Nausea / Vomiting: adequately controlled Pain: adequately controlled Airway Patency, RR, SpO2: stable & adequate BP & HR: stable & adequate Hydration State: stable & adequate Anesthetic Complications: no major complications apparent
== END | disposition home or self-care (01) ==
LOC: X.SURG 07:41
PROVIDERS: ATTEND Ophthalmology
DX: H35.342 Macular cyst, hole, or pseudohole, left eye (principal); J44.9 Chronic obstructive pulmonary disease, unspecified; I25.10 Atherosclerotic heart disease of native coronary artery without angina pectoris; E03.9 Hypothyroidism, unspecified

== ENCOUNTER → 2017-04-05 | Outpatient (CLI) | payer BC, OTHER ==
[~2017-04-05] MED LIST changes: -500ML BSSPLUS 0.5ML EPI1:1000 IRRIG ONE; -ACETAMINOPHEN 325 MG TAB PO PRN; -ATROPINE SULFATE 0.1 MG/ML 5ML SYR IV PRN; -ATROPINE SULFATE 1% OP OINT PER APPLICATION CHARGE ONE; -BSS FLUSH ONE; -BUPIVACAINE HCL 0.75% 10 ML AMP/VIAL ONE; -CEFAZOLIN SOD 1 GM VIAL ONE; -DEXAMETHASONE SOD INJ 4 MG/ML VIAL ONE; -EpHEDrine SULFATE INJ 50 MG/ML AMP IV PRN; -EpINEphrine INJ 1MG/ML AMP 1 MG/ML AMP ONE; -FENTANYL CITRATE INJ 50 MCG/1 ML 2 ML VIAL ONE; -HYALURONIDASE HUMAN 150 UNIT/ML INJ ONE; -INDOCYANINE GREEN 25 MG/10 ML ONE; -LACTATED RINGER'S 1000ML 500 ML IV SCH; -LIDOCAINE HCL 2% 2 ML VIAL (20MG/ML) ONE; -MIDAZOLAM HCL 1 MG/ML 2ML VIAL ONE; -NEOMYCIN/POLYMYX/DEXAMETH OP OINT PER APP CHARGE ONE; -OCUCOAT 1 ML SOLN IO ONE; -ONDANSETRON INJ 2 MG/ML 2 ML VIAL ONE; -POVIDONE-IODINE OP SOLN (SURGERY CNTR CHARGING ONLY) ONE; -PROPARACAINE 0.5% OP SOLN PER DROP CHARGE OPL SCH; -PROPOFOL IV EMULSION 10 MG/ML 20 ML VIAL IV ONE; -TIMOLOL MALEATE 0.5% OP SOLN PER DROP CHARGE ONE; -VANCOMYCIN HCL 1000MG/20ML VIAL ONE
[2017-04-05 09:09] LABS: HEMATOCRIT 32.2 % (42-52); MEAN CELL VOLUME 80.9 fL (80-100); MEAN CORPUSCULAR HEMOGLOBIN 24.6 pg (25-34); MEAN CORPUSCULAR HGB CONC 30.4 g/dl (32-36); MEAN PLATELET VOLUME 10.3 fL (7.4-10.4); PLATELET COUNT 222 K/uL (130-400); RED BLOOD COUNT 3.98 M/uL (4.7-6.1); WHITE BLOOD COUNT 9.28 K/uL (4.8-10.8)
[2017-04-05 09:16] LABS: BLOOD UREA NITROGEN 20 mg/dl (7-18); BUN/CREATININE RATIO 16.9 (10-20); CALCIUM 8.8 mg/dl (8.5-10.1); CARBON DIOXIDE 33 mmol/L (21-32); CHLORIDE 99 mmol/L (98-107); CREATININE 1.17 mg/dl (0.60-1.40); GLUCOSE 105 mg/dl (70-99); POTASSIUM 3.5 mmol/L (3.5-5.1); SODIUM 140 mmol/L (136-145)
== END ==
LOC: C.LABUPNIT 08:43
PROVIDERS: ATTEND Nurse Practitioner Family
DX: D50.9 Iron deficiency anemia, unspecified (principal); E87.6 Hypokalemia

== ENCOUNTER → 2017-04-08 | Outpatient (CLI) | payer BC, OTHER ==
[2017-04-08 14:06] LABS: BASO % 0.1 %; BASO ABS # 0.02 K/uL (0-0.2); EOS % 1.4 %; HEMATOCRIT 32.8 % (42-52); IG% 0.3 %; LYMPH ABS # 0.91 K/uL (1.2-3.4); MEAN CELL VOLUME 80.8 fL (80-100); MEAN CORPUSCULAR HEMOGLOBIN 25.1 pg (25-34); MEAN PLATELET VOLUME 10.4 fL (7.4-10.4); MONO % 7.9 %; NEUT % 85.3 %; PLATELET COUNT 235 K/uL (130-400); RED BLOOD COUNT 4.06 M/uL (4.7-6.1); WHITE BLOOD COUNT 18.02 K/uL (4.8-10.8)
[2017-04-08 14:09] LABS: COMPLETE YES; MEAN CORPUSCULAR HGB CONC 31.1 g/dl (32-36)
[2017-04-08 14:27] LABS: ALB/GLOB RATIO 0.7 (0.9-2); ALKALINE PHOSPHATASE 62 U/L (45-117); ALT/SGPT 24 U/L (12-78); AST/SGOT 16 U/L (15-37); BLOOD UREA NITROGEN 26 mg/dl (7-18); BUN/CREATININE RATIO 15.3 (10-20); CALCIUM 8.4 mg/dl (8.5-10.1); CARBON DIOXIDE 28 mmol/L (21-32); CHLORIDE 101 mmol/L (98-107); CREATININE 1.73 mg/dl (0.60-1.40); GLUCOSE 154 mg/dl (70-99); POTASSIUM 3.3 mmol/L (3.5-5.1); SODIUM 139 mmol/L (136-145)
== END ==
LOC: C.LABUPNIT 13:56
PROVIDERS: ATTEND Nurse Practitioner Family
DX: R50.9 Fever, unspecified (principal)

== ENCOUNTER → 2017-04-08 | Outpatient (CLI) | payer BC, OTHER ==
[2017-04-08 17:04] LABS: URINE APPEARANCE CLEAR (CLEAR); URINE BILIRUBIN NEG (NEG); URINE COLOR DK YELLOW; URINE NITRITE NEG (NEG); URINE SPECIFIC GRAVITY 1.022 (1.000-1.030); UROBILINOGEN NEG (NEG); ZZUR CULT IF INDIC CLEAN CATCH NO
[2017-04-08 17:11] LABS: MANUAL MICROSCOPIC REQUIRED? NO; REVIEW REQ? NO
== END ==
LOC: C.LABUPNIT 16:21
PROVIDERS: ATTEND Nurse Practitioner Family
DX: R41.82 Altered mental status, unspecified (principal)

== ENCOUNTER → 2017-04-09 | Outpatient (CLI) | payer BC, OTHER ==
[2017-04-09 08:45] LABS: BASO % 0.1 %; BASO ABS # 0.02 K/uL (0-0.2); COMPLETE YES; EOS % 2.4 %; HEMATOCRIT 31.9 % (42-52); IG% 0.4 %; LYMPH % 9.6 %; MEAN CORPUSCULAR HEMOGLOBIN 24.9 pg (25-34); MEAN CORPUSCULAR HGB CONC 30.4 g/dl (32-36); MONO % 6.8 %; NEUT % 80.7 %; PLATELET COUNT 202 K/uL (130-400); RED BLOOD COUNT 3.89 M/uL (4.7-6.1); WHITE BLOOD COUNT 15.63 K/uL (4.8-10.8)
[2017-04-09 08:54] LABS: BLOOD UREA NITROGEN 31 mg/dl (7-18); BUN/CREATININE RATIO 17.3 (10-20); CALCIUM 8.5 mg/dl (8.5-10.1); CARBON DIOXIDE 31 mmol/L (21-32); CHLORIDE 101 mmol/L (98-107); CREATININE 1.78 mg/dl (0.60-1.40); GLUCOSE 79 mg/dl (70-99); POTASSIUM 3.5 mmol/L (3.5-5.1); SODIUM 138 mmol/L (136-145)
== END ==
LOC: C.LABUPNIT 08:26
PROVIDERS: ATTEND Nurse Practitioner Family
DX: R32 Unspecified urinary incontinence (principal); E87.6 Hypokalemia

== ENCOUNTER → 2017-04-10 | Outpatient (CLI) | payer BC, OTHER ==
[2017-04-10 09:06] LABS: BASO % 0.1 %; BASO ABS # 0.01 K/uL (0-0.2); COMPLETE YES; EOS % 1.3 %; HEMATOCRIT 31.7 % (42-52); IG% 0.4 %; LYMPH ABS # 0.88 K/uL (1.2-3.4); MEAN CELL VOLUME 81.5 fL (80-100); MEAN CORPUSCULAR HEMOGLOBIN 24.9 pg (25-34); MEAN CORPUSCULAR HGB CONC 30.6 g/dl (32-36); MEAN PLATELET VOLUME 10.5 fL (7.4-10.4); NEUT % 84.2 %; PLATELET COUNT 218 K/uL (130-400); RED BLOOD COUNT 3.89 M/uL (4.7-6.1); WHITE BLOOD COUNT 10.98 K/uL (4.8-10.8)
[2017-04-10 09:50] LABS: BLOOD UREA NITROGEN 22 mg/dl (7-18); BUN/CREATININE RATIO 19.4 (10-20); CALCIUM 8.6 mg/dl (8.5-10.1); CARBON DIOXIDE 32 mmol/L (21-32); CHLORIDE 102 mmol/L (98-107); CREATININE 1.13 mg/dl (0.60-1.40); GLUCOSE 99 mg/dl (70-99); SODIUM 137 mmol/L (136-145)
== END ==
LOC: C.LABUPNIT 08:43
PROVIDERS: ATTEND Nurse Practitioner Family
DX: D69.9 Hemorrhagic condition, unspecified (principal); E87.6 Hypokalemia; N32.81 Overactive bladder

== ENCOUNTER → 2017-04-15 | Outpatient (CLI) | payer BC, OTHER ==
[2017-04-15 08:30] LABS: HEMATOCRIT 31.7 % (42-52); MEAN CELL VOLUME 80.5 fL (80-100); MEAN CORPUSCULAR HEMOGLOBIN 25.1 pg (25-34); MEAN CORPUSCULAR HGB CONC 31.2 g/dl (32-36); MEAN PLATELET VOLUME 10.1 fL (7.4-10.4); PLATELET COUNT 292 K/uL (130-400); RED BLOOD COUNT 3.94 M/uL (4.7-6.1)
[2017-04-15 08:38] LABS: BLOOD UREA NITROGEN 23 mg/dl (7-18); CARBON DIOXIDE 29 mmol/L (21-32); CHLORIDE 102 mmol/L (98-107); CREATININE 1.08 mg/dl (0.60-1.40); GLUCOSE 93 mg/dl (70-99); POTASSIUM 3.7 mmol/L (3.5-5.1); SODIUM 138 mmol/L (136-145)
== END ==
LOC: C.LABUPNIT 08:17
PROVIDERS: ATTEND Nurse Practitioner Family
DX: I25.119 Atherosclerotic heart disease of native coronary artery with unspecified angina pectoris (principal)

== ENCOUNTER → 2017-04-18 | Outpatient (CLI) | payer BC, OTHER ==
[2017-04-18 08:48] LABS: BASO % 0.2 %; BASO ABS # 0.03 K/uL (0-0.2); COMPLETE YES; EOS % 1.2 %; HEMATOCRIT 32.1 % (42-52); IG% 1.6 %; LYMPH % 15.7 %; LYMPH ABS # 1.91 K/uL (1.2-3.4); MEAN CELL VOLUME 80.7 fL (80-100); MEAN CORPUSCULAR HEMOGLOBIN 24.9 pg (25-34); MEAN CORPUSCULAR HGB CONC 30.8 g/dl (32-36); MEAN PLATELET VOLUME 9.8 fL (7.4-10.4); MONO % 7.9 %; NEUT % 73.4 %; PLATELET COUNT 304 K/uL (130-400); RED BLOOD COUNT 3.98 M/uL (4.7-6.1); WHITE BLOOD COUNT 12.15 K/uL (4.8-10.8)
== END ==
LOC: C.LABUPNIT 08:26
PROVIDERS: ATTEND Nurse Practitioner Family
DX: D64.9 Anemia, unspecified (principal)

== ENCOUNTER → 2017-04-25 | Outpatient (CLI) | payer BC, OTHER ==
[2017-04-25 09:05] LABS: HEMATOCRIT 32.8 % (42-52); MEAN CELL VOLUME 80.4 fL (80-100); MEAN CORPUSCULAR HGB CONC 29.9 g/dl (32-36); MEAN PLATELET VOLUME 10.4 fL (7.4-10.4); PLATELET COUNT 278 K/uL (130-400); RED BLOOD COUNT 4.08 M/uL (4.7-6.1); WHITE BLOOD COUNT 10.47 K/uL (4.8-10.8)
== END ==
LOC: C.LABUPNIT 08:34
PROVIDERS: ATTEND Nurse Practitioner Family
DX: I25.10 Atherosclerotic heart disease of native coronary artery without angina pectoris (principal)

== ENCOUNTER → 2017-04-30 | Outpatient (CLI) | payer BC, OTHER ==
[~2017-04-30] MED LIST changes: -AMLO-114 PO; +AMLO10TA3 PO; +BROM0.0911 OPR; +CLB/200 PO; -DONE1TAB11 PO; +DONE5TAB26 PO; +IPRA-64 INH; -IPRASOL4 INH; +KRIL1000 PO; +LVQ750 PO; +MELO-83 PO; -MELO15TA4 PO; +METH10TA PO
[2017-04-30 09:08] LABS: BLOOD UREA NITROGEN 19 mg/dl (7-18); CALCIUM 8.5 mg/dl (8.5-10.1); CARBON DIOXIDE 33 mmol/L (21-32); GLUCOSE 86 mg/dl (70-99); POTASSIUM 3.4 mmol/L (3.5-5.1); SODIUM 141 mmol/L (136-145)
--- NOTE | 2017-05-03 08:20 | CODING QUERY NO DIAGNOSIS ---
TREATMENT RENDERED WITHOUT A DIAGNOSIS 40 To promote full compliance with coding requirements relating to patient care, physician participation is requested in all cases of livestock caretaker uncertainty. Please assist us with providing a diagnosis/symptom for the test(s) below: A diagnosis/symptom was not documented on your Order. A valid diagnosis/symptom is required to bill all insurances. Please remember that we are unable to code a diagnosis of rule out, probable, possible, questionable, or suspected. DOS 04/30/17 Tests that require a diagnosis: * BMP DIAGNOSIS: *ON YOUR ORDER YOU HAVE DX CODE I25.1, THAT IS AN INVALID CODE, PLEASE ADD CORRECT CODE Provider Signature: Date: Thank you Andria Lorenzo Health Information Management Once completed, please kindly fax back to [phone] For questions please call [phone]
== END ==
LOC: C.LABUPNIT 08:31
PROVIDERS: ATTEND Nurse Practitioner Family
DX: E87.6 Hypokalemia (principal)

== ENCOUNTER → 2017-05-03 | Outpatient (CLI) | payer BC, OTHER ==
[~2017-05-03] MED LIST changes: -BROM0.0911 OPR; -LVQ750 PO
== END ==
LOC: C.LABUPNIT 08:18
PROVIDERS: ATTEND Nurse Practitioner Family
DX: E87.6 Hypokalemia (principal)

== ENCOUNTER → 2017-05-21 | Outpatient (CLI) | payer BC, OTHER ==
[~2017-05-21] MED LIST changes: +AMLO-114 PO; -AMLO10TA3 PO; -CLB/200 PO; +DONE1TAB11 PO; -DONE5TAB26 PO; -IPRA-64 INH; +IPRASOL4 INH; -KRIL1000 PO; -MELO-83 PO; +MELO15TA4 PO; -METH10TA PO
== END ==
LOC: C.LABUPNIT 10:48
PROVIDERS: ATTEND Nurse Practitioner Family
DX: S91.106A Unspecified open wound of unspecified lesser toe(s) without damage to nail, initial encounter (principal); X58.XXXA Exposure to other specified factors, initial encounter

== ENCOUNTER → 2017-06-07 | Outpatient (CLI) | payer BC, OTHER ==
[2017-06-07 08:55] LABS: BLOOD UREA NITROGEN 18 mg/dl (7-18); CALCIUM 8.7 mg/dl (8.5-10.1); CARBON DIOXIDE 34 mmol/L (21-32); CREATININE 0.97 mg/dl (0.60-1.40); GLUCOSE 113 mg/dl (70-99); POTASSIUM 3.7 mmol/L (3.5-5.1); SODIUM 139 mmol/L (136-145)
== END ==
LOC: C.LABUPNIT 08:09
PROVIDERS: ATTEND Nurse Practitioner Family
DX: I25.119 Atherosclerotic heart disease of native coronary artery with unspecified angina pectoris (principal)

== ENCOUNTER 2018-09-23 08:35 | Inpatient (IN) ==
--- OUTSIDE RECORDS SUMMARY | 2018-09-23 08:41 | External Medical Summary | Continuity of Care Document ---
:1940 Author Name Bill Abbott Address Unavailable Unavailable , Care Team Providers Name Role Phone Unavailable Unavailable Unavailable Chelsea JAUREGUI M.D. 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) Spasm (781.0) (R25.2) Myalgia and myositis (729.1) Melena (578.1) (K92.1) Anemia (285.9) (D64.9) Rib pain on left side (786.50) (R07.81) Hypertension (401.9) (I10) Peripheral neuropathy (356.9) (G62.9) Stroke syndrome Pseudogout (275.49) (M11.20) Chronic obstructive pulmonary disease (496) (J44.9) Chronic pain (338.29) (G89.29) Cellulitis of left foot (682.7) (L03.116) Coccydynia (724.79) (M53.3) Cellulitis of foot, right (682.7) (L03.115) Hypothyroidism (244.9) (E03.9) Sleep apnea (780.57) (G47.30) Allergies and Adverse Reactions Contrast Media Ready-Box MISC (Allergy) Medications Medications not documented Procedures History of Parathyroid Resection Single Tumor Removal Status: Completed History of Hernia Repair Status: Complet ed History of Cholecystectomy Status: Compl eted History of Knee Surgery Status: Complete d Immunizations Fluzone INJ On: 13-Feb-2011 15:37 Lot #: [id number], [employer] Fluzone High-Dose Intramuscular Suspension On: 22-Jan-2014 8 :55 Lot #: [id number], [employer] Prevnar 13 Intramuscular Suspension On: 17-Sep-2014 8:52 Lot #: [id number], [employer] Family History Father Family history of Heart Disease (V17.49) Status: Active Mother Family history of heart failure (V17.49) (Z82.49) Status: Ac tive Family history of Alzheimer's disease (V17.2) (Z82.0) Status : Active Brother Family history of myocardial infarction (V17.3) (Z82.49) Sta tus: Active Family history of malignant neoplasm of kidney (V16.51) (Z80 .51) Status: Active Grandfather Family history of myocardial infarction (V17.3) (Z82.49) Sta tus: Active Grandfather Family history of myocardial infarction (V17.3) (Z82.49) Sta tus: Active Grandmother Family history of cerebrovascular accident (V17.1) (Z82.3) S tatus: Active Social History - Smoking Status Former smoker Plan of Treatment Planned Observations Planned Goals not documented Results No Known Results Results not documented
[2018-09-23] MEDS ORDERED: SODIUM CHLORIDE 0.9% 500 ML IV SCH (09:00)
[2018-09-23] MEDS ORDERED: ALBUT/IPRATROP 3MG/0.5MG NEB 3 ML VIAL NEB STA (09:00)
[2018-09-23 09:23] LABS: Base Excess VBG 3.3 mEq/L; HCO3 VBG 32 mmol/L; Oxygen Saturation VBG < 60.0 %; PCO2 VBG 66 mmHg (38-50); PO2 VBG 24 mmHg
--- NOTE | 2018-09-23 09:23 | XRay Report ---
XR chest 1V portable HISTORY: weakness COMPARISON: Chest 01/01/2018. FINDINGS: No pneumothorax. No pleural effusions. The heart is normal in size. Tortuous thoracic aorta , unchanged. The left lung is clear. Interval development of a right upper lobe airspace opacity loca samanta within the right midlung zone. IMPRESSION: Interval development of a right upper lobe airspace opacity. This likely represents a pneumonia. One month chest x-ray follow-up is recommended to ensure resolution. Electronically signed by: Virgil Tijerina M.D. 09/23/2018 9:21 AM
[2018-09-23 09:34] LABS: Hematocrit (blood only) 37.7 % (42-52); Hemoglobin 11.8 g/dL (14.0-18.0); Mean Corpuscular Hgb Conc 31.3 g/dL (32-36); Mean Corpuscular Volume 77.1 fL (80-100); Mean Platelet Volume 10.5 fL (7.4-10.4); Platelet Count 260 K/uL (130-400); RDW Standard Deviation 50.8 fL (36.4-46.3); Red Blood Count 4.89 M/uL (4.7-6.1); White Blood Count 21.34 K/uL (4.8-10.8)
[2018-09-23 09:45] LABS: Partial Thromboplastin Ratio 0.9; Partial Thromboplastin Time 25.5 Seconds (21.0-31.0); Prothrombin Time 10.4 Seconds (9.0-12.0)
[2018-09-23 09:53] LABS: Alanine Aminotransferase 21 U/L (12-78); Albumin Level 2.6 gm/dl (3.4-5.0); Aspartate Aminotransferase 11 U/L (15-37); BUN Creatinine Ratio 15.7 (10-20); Blood Urea Nitrogen 26 mg/dl (7-18); Carbon Dioxide 32 mmol/L (21-32); Chloride 98 mmol/L (98-107); Creatinine Clr Calc Pharmacy 55.8 ml/min; Est GFR (African American) 46.1; Est GFR (Non-African American) 39.7; Glucose 132 mg/dl (70-99); Magnesium 1.7 mg/dl (1.8-2.4); Potassium 4.3 mmol/L (3.5-5.1); Sodium 134 mmol/L (136-145)
[2018-09-23] MEDS ORDERED: MAGNESIUM SULFATE / D5W 1 GM/100 ML BAG IV ONE (09:56)
--- NOTE | 2018-09-23 09:56 | Emergency Department Note ---
Entered by Nisa Michaud acting as a scribe for Jose Harris DO History of Present Illness General Chief complaint: Altered Mental Status Stated complaint: altered mental status Time Seen by Provider: 09/23/18 08:48 Source: patient and family Mode of arrival: EMS Limitations: no limitations History of Present Illness Provider complaint: AMS Onset (ago): hour(s) (this morning) Location: head Pain Consistency: + other (episode) Quality: + other (AMS) Associated symptoms: + confusion, + weakness and + other (following commands slowly) The patient is a 77 year old who presents to the ER via EMS for an evaluation of altered mental status. The patients at bedside reports that the patient woke up this morning and was not coherent. She explains that she tried to give the patient coffee but that he did not understand her. She states that she then asked him to lift his left arm up and that he did so very slowly and after thinking about it for some time. She notes that the patient has a history of a stroke and has some chronic weakness to his right arm but that today he was experiencing weakness of both arms. She reports that he has been eating and drinking at baseline but only had a few sips of coffee today. She denies any acute leg swelling or chest pain. The patient reports that he does have a chronic cough as well as shortness of breath and is on nasal cannula oxygen at night. Per , the patient has a caregiver who also noticed that the patient was not acting baseline this morning. Home Medications Home Medications Medication Instructions Recorded Confirmed Type cholecalciferol (vitamin D3) 2,000 unit PO DAILY #0 06/05/16 09/23/18 History duloxetine 60 mg PO QAM #0 06/05/16 09/23/18 History aspirin [Ecotrin Low Strength] 81 mg PO DAILY #0 07/03/16 09/23/18 History omeprazole 20 mg PO QAM #0 07/03/16 09/23/18 History prednisone 10 mg PO BID #0 tab 08/29/16 09/23/18 History donepezil 5 mg PO HS #0 10/11/16 09/23/18 History levothyroxine 25 mcg PO MOWEFR@0900 #0 10/11/16 09/23/18 History Lactobacillus acidophilus 1 cap PO BID #0 01/08/17 09/23/18 History cyanocobalamin (vitamin B-12) 1,000 mcg PO DAILY #0 01/08/17 09/23/18 History gabapentin 600 mg PO TID #0 01/08/17 09/23/18 History levothyroxine 50 mcg PO SUTUTHSA@0900 #0 01/08/17 09/23/18 History Krill Oil ([place] 3 and 6) 1 cap PO DAILY #0 01/01/18 09/23/18 History celecoxib 200 mg PO DAILY #0 cap 01/01/18 09/23/18 History methadone 30 mg PO BID #0 01/01/18 09/23/18 History fluticasone propionate 1 spray INTRANASAL DAILY PRN 09/23/18 09/23/18 History ipratropium-albuterol [Combivent 1 puff INHALATION QID 09/23/18 09/23/18 History Respimat] losartan-hydrochlorothiazide 1 tab PO DAILY 09/23/18 09/23/18 History Allergies Allergy/AdvReac Type Severity Reaction Status Date / Time Iodinated Contrast- Oral and Allergy Intermediate HIVES Verified 09/23/18 10:43 IV Dye Past Med/Surg History Medical History Ambulatory dysfunction Atrial tachycardia Chronic anemia Lesion of left [place] kidney Newly diagnosed diabetes HTN (hypertension) Bowel perforation Acute respiratory failure with hypoxia Fibromyalgia Hernia CVA (cerebral infarction) (Chronic) COPD (chronic obstructive pulmonary disease) (Chronic) GI bleed (Resolved) Sleep apnea (Chronic) Hypothyroidism (Chronic) PMR (polymyalgia rheumatica) (Chronic) Chronic pain syndrome (Chronic) FELICITA (iron deficiency anemia) (Chronic) Monoclonal gammopathy (Chronic) Pneumonia Acute bronchitis (Resolved) COPD exacerbation (Resolved) Hypoxia (Resolved) Surgical History S/P small bowel resection (Chronic) H/O hernia repair (Chronic) S/P cholecystectomy (Chronic) H/O esophagogastroduodenoscopy (Chronic) Family History Other No pertinent family history Social History Preferred Language: [place] Communication Ability: Effective Visual Impairment: No Limitations Hearing Ability: Normal marital status: Current Living Situation: Spouse Feels Safe at Home: Yes Smoking Status: Never smoker Review of Systems See HPI for pertinent positives & negatives. and A total of 10 systems reviewed and were otherwise negative Physical Exam Vital Signs Vital Signs - 24 hr 09/23/18 08:47 09/23/18 08:48 09/23/18 08:53 Temperature 36.9 C Temperature Source Oral Sepsis Recent Fever Within 48 Hours No Sepsis Action Taken by Nursing No Action Required Pulse Rate 96 H 96 H 95 H Pulse Rate from SpO2 Sensor 50 L 70 Pulse Rhythm Regular Pulse Strength Normal Respiratory Rate 26 H 25 H 20 Respiratory Effort / Characteristics Non-Labored Spontaneous Respiratory Depth Normal Respiratory Pattern Regular Blood Pressure 148/62 H 148/62 H Blood Pressure Mean 90 90 Blood Pressure Position Lying Pulse Oximetry 91 89 L Oxygen Delivery Method Room Air Oxygen Flow Rate 09/23/18 08:58 09/23/18 08:59 09/23/18 09:00 Temperature Temperature Source Sepsis Recent Fever Within 48 Hours Sepsis Action Taken by Nursing Pulse Rate 99 H Pulse Rate from SpO2 Sensor Pulse Rhythm Pulse Strength Respiratory Rate 18 Respiratory Effort / Characteristics Respiratory Depth Respiratory Pattern Blood Pressure Blood Pressure Mean Blood Pressure Position Pulse Oximetry 94 Oxygen Delivery Method Nasal Cannula Nasal Cannula Oxygen Flow Rate 3 09/23/18 09:14 09/23/18 09:30 09/23/18 09:32 Temperature Temperature Source Sepsis Recent Fever Within 48 Hours Sepsis Action Taken by Nursing Pulse Rate 98 H 93 H 94 H Pulse Rate from SpO2 Sensor 126 H Pulse Rhythm Pulse Strength Respiratory Rate 16 21 22 Respiratory Effort / Characteristics Respiratory Depth Respiratory Pattern Blood Pressure 146/89 H 137/83 Blood Pressure Mean 108 101 Blood Pressure Position Pulse Oximetry 82 L Oxygen Delivery Method Oxygen Flow Rate 09/23/18 10:02 09/23/18 10:30 09/23/18 10:35 Temperature Temperature Source Sepsis Recent Fever Within 48 Hours Sepsis Action Taken by Nursing Pulse Rate 92 H 93 H 91 H Pulse Rate from SpO2 Sensor Pulse Rhythm Pulse Strength Respiratory Rate 16 24 22 Respiratory Effort / Characteristics Respiratory Depth Respiratory Pattern Blood Pressure 140/77 Blood Pressure Mean 98 Blood Pressure Position Pulse Oximetry Oxygen Delivery Method Oxygen Flow Rate 09/23/18 11:00 09/23/18 11:30 09/23/18 12:00 Temperature Temperature Source Sepsis Recent Fever Within 48 Hours Sepsis Action Taken by Nursing Pulse Rate 84 90 99 H Pulse Rate from SpO2 Sensor Pulse Rhythm Pulse Strength Respiratory Rate 21 34 H 33 H Respiratory Effort / Characteristics Respiratory Depth Respiratory Pattern Blood Pressure Blood Pressure Mean 133 Blood Pressure Position Pulse Oximetry Oxygen Delivery Method Oxygen Flow Rate 09/23/18 12:30 09/23/18 13:00 Temperature Temperature Source Sepsis Recent Fever Within 48 Hours Sepsis Action Taken by Nursing Pulse Rate 87 82 Pulse Rate from SpO2 Sensor Pulse Rhythm Pulse Strength Respiratory Rate 20 17 Respiratory Effort / Characteristics Respiratory Depth Respiratory Pattern Blood Pressure 144/89 H 145/76 H Blood Pressure Mean 107 99 Blood Pressure Position Pulse Oximetry Oxygen Delivery Method Oxygen Flow Rate GENERAL: Patient is awake to verbal commands. He falls asleep easily when not verbally stimulated. EYES: The conjunctivae are clear. The pupils are round and reactive. EARS, NOSE, MOUTH AND THROAT: The nose is without any evidence of any deformity. Mucous members are dry. NECK: The neck is nontender and supple. RESPIRATORY: Diminished breath sounds were noted throughout. There were scattered rhonchi noted. There was no tachypnea or conversational dyspnea noted. CARDIOVASCULAR: Regular rate and rhythm was noted to auscultation. No definite murmur was noted. GASTROINTESTINAL: The abdomen is soft. Bowel sounds are present in all quadrants. Abdomen is nontender BACK: No midline tenderness or or step-off noted range of motion in flexion extension as well as rotation no signs of muscle spasm noted MUSCULOSKELETAL/EXTREMITIES: There is no evidence of gross deformity full range of motion is noted in the hips and shoulders SKIN: There is no obvious evidence of any rash. Pedal edema was noted bilaterally. Pulses were symmetric in both feet. NEUROLOGIC: Patient is oriented to person place and situation. There was residual right-sided weakness appreciated from the previous stroke. Course 0856: Past medical records reviewed. The patient was evaluated in room A3. A complete history and physical examination was performed. 1108: I discussed the patients case with Syl Lockett PA-C [facility] Hospitalist. She, in conjunction with DR. Castillo, will evaluate the patient for further management. Administered Medications Discontinued Medications Albuterol (Duoneb) 3 ml NEB NOW STA Stop: 09/23/18 09:01 Last Admin: 09/23/18 09:21 Dose: 3 ml Documented by: [id number] Sodium Chloride (Nss) 500 mls @ 999 mls/hr IV .Q31M ADRIEL Stop: 09/23/18 09:30 Last Infusion: 09/23/18 10:52 Dose: 0 mls/hr Documented by: [id number] Admin: 09/23/18 09:21 Dose: 999 mls/hr Documented by: [id number] Magnesium Sulfate/Dextrose (Magnesium Sulfate / D5w) 1 gm in 100 mls @ 100 mls/hr IV ONE ONE Stop: 09/23/18 10:55 Last Infusion: 09/23/18 13:00 Dose: 0 mls/hr Documented by: [id number] Admin: 09/23/18 10:41 Dose: 100 mls/hr Documented by: [id number] Piperacillin Sod/Tazobactam Sod (Zosyn) 4.5 gm in 120 mls @ 240 mls/hr IV NOW ONE Stop: 09/23/18 11:28 Last Infusion: 09/23/18 13:00 Dose: 0 mls/hr Documented by: [id number] Admin: 09/23/18 12:15 Dose: 240 mls/hr Documented by: [id number] Medical Decision Making Differential Diagnosis Differential diagnoses includes but is not limited to toxic, metabolic, infectious, traumatic, cardiac, neurologic, hematologic, psychiatric and inflammatory etiologies. Medical Records Attestation: I reviewed the patient's medical records. Home Medications Current Medication List: was personally reviewed by me Laboratory Data Attestation: I reviewed the patient's lab results. Result diagrams: 09/23/18 09:11 09/23/18 09:11 Lab Results 09/23/18 09/23/18 09/23/18 Range/Units 09:11 09:11 09:11 WBC 21.34 H (4.8-10.8) K/uL RBC 4.89 (4.7-6.1) M/uL Hgb 11.8 L (14.0-18.0) g/dL Hct 37.7 L (42-52) % MCV 77.1 L (80-100) fL MCH 24.1 L (25-34) pg MCHC 31.3 L (32-36) g/dL RDW Std Deviation 50.8 H (36.4-46.3) fL RDW Coeff of Don 18.0 H (11.5-14.5) % Plt Count 260 (130-400) K/uL MPV 10.5 H (7.4-10.4) fL Immature Gran % (Auto) 0.6 % Neut % (Auto) 84.4 % Lymph % (Auto) 7.2 % [place] % (Auto) 7.0 % Eos % (Auto) 0.7 % Baso % (Auto) 0.1 % Immature Gran # (Auto) 0.13 H (0.00-0.02) K/uL Neut # (Auto) 18.01 H (1.4-6.5) K/uL Lymph # (Auto) 1.54 (1.2-3.4) K/uL [place] # (Auto) 1.49 H (0.11-0.59) K/uL Eos # (Auto) 0.15 (0-0.5) K/uL Baso # (Auto) 0.02 (0-0.2) K/uL Anisocytosis Present Microcytosis Present PT 10.4 (9.0-12.0) Seconds INR 1.0 (0.9-1.1) APTT 25.5 (21.0-31.0) Seconds PTT Ratio 0.9 ABG pH (7.35-7.45) VBG pH (7.36-7.41) VBG pCO2 (38-50) mmHg VBG pO2 mmHg VBG HCO3 mmol/L VBG O2 Saturation % VBG Base Excess mEq/L Barometric Pressure mm/Hg Sodium 134 L (136-145) mmol/L Potassium 4.3 (3.5-5.1) mmol/L Chloride 98 (98-107) mmol/L Carbon Dioxide 32 (21-32) mmol/L Anion Gap 4.0 (3-11) BUN 26 H (7-18) mg/dl Creatinine 1.64 H (0.6-1.4) mg/dl Est Cr Clr Drug Dosing 55.8 ml/min Est GFR ( Amer) 46.1 Est GFR (Non-Af Amer) 39.7 BUN/Creatinine Ratio 15.7 (10-20) Glucose 132 H (70-99) mg/dl Calcium 9.0 (8.5-10.1) mg/dl Magnesium 1.7 L (1.8-2.4) mg/dl Total Bilirubin 0.5 (0.2-1) mg/dl AST 11 L (15-37) U/L ALT 21 (12-78) U/L Alkaline Phosphatase 77 (45-117) U/L Troponin I < 0.015 (0-0.045) ng/ml Total Protein 6.7 (6.4-8.2) gm/dl Albumin 2.6 L (3.4-5.0) gm/dl Globulin 4.1 H (2.5-4.0) gm/dl Albumin/Globulin Ratio 0.6 L (0.9-2) TSH 1.430 (0.300-4.500) uIu/ml Random Cortisol mcg/dl 09/23/18 09/23/18 09/23/18 Range/Units 09:11 09:11 13:20 WBC (4.8-10.8) K/uL RBC (4.7-6.1) M/uL Hgb (14.0-18.0) g/dL Hct (42-52) % MCV (80-100) fL MCH (25-34) pg MCHC (32-36) g/dL RDW Std Deviation (36.4-46.3) fL RDW Coeff of Don (11.5-14.5) % Plt Count (130-400) K/uL MPV (7.4-10.4) fL Immature Gran % (Auto) % Neut % (Auto) % Lymph % (Auto) % [place] % (Auto) % Eos % (Auto) % Baso % (Auto) % Immature Gran # (Auto) (0.00-0.02) K/uL Neut # (Auto) (1.4-6.5) K/uL Lymph # (Auto) (1.2-3.4) K/uL [place] # (Auto) (0.11-0.59) K/uL Eos # (Auto) (0-0.5) K/uL Baso # (Auto) (0-0.2) K/uL Anisocytosis Microcytosis PT (9.0-12.0) Seconds INR (0.9-1.1) APTT (21.0-31.0) Seconds PTT Ratio ABG pH 7.40 (7.35-7.45) VBG pH 7.30 L (7.36-7.41) VBG pCO2 66 H (38-50) mmHg VBG pO2 24 mmHg VBG HCO3 32 mmol/L VBG O2 Saturation < 60.0 % VBG Base Excess 3.3 mEq/L Barometric Pressure 733.8 mm/Hg Sodium (136-145) mmol/L Potassium (3.5-5.1) mmol/L Chloride (98-107) mmol/L Carbon Dioxide (21-32) mmol/L Anion Gap (3-11) BUN (7-18) mg/dl Creatinine (0.6-1.4) mg/dl Est Cr Clr Drug Dosing ml/min Est GFR ( Amer) Est GFR (Non-Af Amer) BUN/Creatinine Ratio (10-20) Glucose (70-99) mg/dl Calcium (8.5-10.1) mg/dl Magnesium (1.8-2.4) mg/dl Total Bilirubin (0.2-1) mg/dl AST (15-37) U/L ALT (12-78) U/L Alkaline Phosphatase (45-117) U/L Troponin I (0-0.045) ng/ml Total Protein (6.4-8.2) gm/dl Albumin (3.4-5.0) gm/dl Globulin (2.5-4.0) gm/dl Albumin/Globulin Ratio (0.9-2) TSH (0.300-4.500) uIu/ml Random Cortisol 14.02 mcg/dl Imaging Data Radiologist's Impression: Radiology results as stated below per my review and the radiologist's interpretation: CT head/brain wo con CT DOSE: 691.05 mGy.cm HISTORY: Mental status change 07/03/2016 TECHNIQUE: Multiaxial CT images of the head were performed without the use of intravenous contrast. A dose lowering technique was utilized adhering to the principles of ALARA. Comparison: None. Findings: The paranasal sinuses and mastoid air cells are clear. Several old left sided cerebral infarct. No acute intracranial abnormality. Age-related chronic small vessel change as well as atrophy. Impression: No acute intracranial abnormality. The above report was generated using voice recognition software. It may contain grammatical, syntax or spelling errors. Electronically signed by: Ar Sarabia M.D. 09/23/2018 10:09 AM XR chest 1V portable HISTORY: weakness COMPARISON: Chest 01/01/2018. FINDINGS: No pneumothorax. No pleural effusions. The heart is normal in size. Tortuous thoracic aorta, unchanged. The left lung is clear. Interval development of a right upper lobe airspace opacity located within the right midlung zone. IMPRESSION: Interval development of a right upper lobe airspace opacity. This likely represents a pneumonia. One month chest x-ray follow-up is recommended to ensure resolution. Electronically signed by: Virgil Tijerina M.D. 09/23/2018 9:21 AM ECG Data Attestation: I personally reviewed and interpreted this ECG as follows: Indication: altered mental status Rate (beats per minute): 94 Rhythm: sinus rhythm Findings: + PAC and + RBBB (incomplete ); no PVC Comparison ECG Date: from (01-JAN-2018) Change: no significant change Blood Pressure Blood Pressure Findings: Elevated blood pressure Blood Pressure Disposition: further management by hospitalist MDM Narrative The patient is a 77-year-old male who presented to the emergency department with family members for an evaluation of altered mental status. The patient has a history of COPD. He normally wears oxygen at night but was found to have hypoxia in the emergency department. He was treated with supplemental oxygen as well as a DuoNeb. On chest x-ray the patient was found to have signs of a pulmonary infiltrate. He also has an elevated white blood cell count. The pat ient was treated with IV fluids as well as IV antibiotics. He was reevaluated multiple times. I discussed the patient's laboratory and radiographic studies with him. I also discussed his case with the on-call [facility] hospitalist group. They have agreed to evaluate the patient in the emergency department for further management and disposition. Impression & Plan Altered mental status, Pneumonia, Hypoxia, Respiratory acidosis Discharge Plan Visit Data Chief Complaint: Altered Mental Status Stated Complaint: altered mental status ED Provider: Jose Harris Discharge Problem: Altered mental status, Pneumonia, Hypoxia, Respiratory acidosis Patient Disposition: Being Evaluated by Hospitalist Discharge Instructions Interventions: ED Discharge Assessment Last Done: 09/23/18 13:19 Forms Stand Alone Forms: [facility] Prescriptions Prescriptions: No Action cholecalciferol (vitamin D3) 2,000 unit Tablet 2,000 unit PO DAILY Qty: 0 RF: 0 duloxetine 60 mg Capsule,Delayed Release(Dr/Ec) 60 mg PO QAM Qty: 0 RF: 0 aspirin [Ecotrin Low Strength] 81 mg Tablet,Delayed Release (Dr/Ec) 81 mg PO DAILY Qty: 0 RF: 0 omeprazole 20 mg Capsule,Delayed Release(Dr/Ec) 20 mg PO QAM Qty: 0 RF: 0 prednisone 10 mg Tablet 10 mg PO BID Qty: 0 RF: 0 donepezil 5 mg Tablet 5 mg PO HS Qty: 0 RF: 0 levothyroxine 25 mcg Tablet 25 mcg PO MOWEFR@0900 Qty: 0 RF: 0 gabapentin 600 mg Tablet 600 mg PO TID Qty: 0 RF: 0 cyanocobalamin (vitamin B-12) 1,000 mcg Tablet 1,000 mcg PO DAILY Qty: 0 RF: 0 levothyroxine 50 mcg Tablet 50 mcg PO SUTUTHSA@0900 Qty: 0 RF: 0 Lactobacillus acidophilus Capsule 1 cap PO BID Qty: 0 RF: 0 Krill Oil ([place] 3 and 6) 1000-130(40-80) mg Capsule 1 cap PO DAILY Qty: 0 RF: 0 methadone 10 mg Tablet 30 mg PO BID Qty: 0 RF: 0 celecoxib 200 mg Capsule 200 mg PO DAILY Qty: 0 RF: 0 fluticasone propionate 50 mcg/actuation [place],Suspension 1 spray INTRANASAL DAILY PRN (Reason: Allergic Symptoms) RF: 0 losartan-hydrochlorothiazide 100-12.5 mg Tablet 1 tab PO DAILY RF: 0 Combivent Respimat 20-100 mcg/actuation [place] 1 puff INHALATION QID RF: 0 Referrals Referrals: Chi Meyers MD [Primary Care Provider] - Discharge Problem: Altered mental status Qualifiers: Altered mental status type: unspecified Qualified Code(s): R41.82 - Altered mental status, unspecified Pneumonia Qualifiers: Pneumonia type: due to unspecified organism Laterality: left Lung location: upper lobe of lung Qualified Code(s): J18.1 - Lobar pneumonia, unspecified organism The scribe's documentation has been prepared under my direction and personally reviewed by me in its entirety. I confirm that the note above accurately reflects all work, treatment, procedures, and medical decision making performed by me.
[2018-09-23 10:03] LABS: Basophils # (auto) 0.02 K/uL (0-0.2); Basophils % (auto) 0.1 %; Eosinophils # (auto) 0.15 K/uL (0-0.5); Eosinophils % (auto) 0.7 %; Immature Granulocytes # (auto) 0.13 K/uL (0.00-0.02); Immature Granulocytes % (auto) 0.6 %; Lymphocytes # (auto) 1.54 K/uL (1.2-3.4); Lymphocytes % (auto) 7.2 %; Monocytes # (auto) 1.49 K/uL (0.11-0.59); Neutrophils # (auto) 18.01 K/uL (1.4-6.5); Neutrophils % (auto) 84.4 %
[2018-09-23 10:04] LABS: Albumin Globulin Ratio 0.6 (0.9-2); Alkaline Phosphatase 77 U/L (45-117); Bilirubin,Total 0.5 mg/dl (0.2-1); Globulin 4.1 gm/dl (2.5-4.0); Total Protein 6.7 gm/dl (6.4-8.2); Troponin I < 0.015 ng/ml (0-0.045)
--- NOTE | 2018-09-23 10:10 | CT Scan Report ---
CT head/brain wo con CT DOSE: 691.05 mGy.cm HISTORY: Mental status change 07/03/2016 TECHNIQUE: Multiaxial CT images of the head were performed without the use of intravenous contrast. A dose lowering technique was utilized adhering to the principles of ALARA. Comparison: None. Findings: The paranasal sinuses and mastoid air cells are clear. Several old left sided cerebral infa rct. No acute intracranial abnormality. Age-related chronic small vessel change as well as atrophy. Impression: No acute intracranial abnormality. The above report was generated using voice recognition software. It may contain grammatical, syntax or spelling errors. Electronically signed by: Ar Sarabia M.D. 09/23/2018 10:09 AM
[2018-09-23 10:35] LABS: Anisocytosis Present
[2018-09-23 10:36] LABS: Microcytosis Present
[2018-09-23] MEDS ORDERED: PIPERACILLIN/TAZOBACTAM 4.5 GM/120 ML BAG IV ONE (10:59)
[2018-09-23] MEDS ORDERED: PIPERACILL/TAZOBAC CONSULT ACTIVE PRN (10:59)
--- NOTE | 2018-09-23 13:16 | History & Physical Report ---
Date of Service September 23, 2018 Assessment & Plan (1) Acute respiratory failure with hypoxia: This is a 77-year-old male with a PMH of COPD (recently started wearing oxygen at bedtime), chronic pain/fibromyalgia on methadone, polymyalgia rheumatica on steroids, history of CVA with residual right-sided weakness, HTN and other medical problems listed below who presents from home with progressive shortness of breath and altered mental status x 2 days and was found to acute on chronic respiratory failure in setting of pneumonia as well as MINDY. -Initially hypoxic with 88% on room air, now 94% on 2L -Recently started requiring oxygen at bedtime. Used for the first time last evening -Continue supplemental oxygen to maintain O2 sat at or above 92% (2) Metabolic encephalopathy: Cognitive slowing but no overt confusion, per family. In setting of infection, as well as chronic CO2 retention. UA also pending -CT head without evidence of acute abnormality -VBG with respiratory acidosis with pH of 7.3, pCO2 in 60s, history of COPD and DEMETRIS -ABG performed later with pH of 7.4, no lethargy and cognitive status improving. Has not tolerated BiPAP/CPAP in the past -Expect improvement mentation with IV antibiotic treatment. Continue to monitor closely (3) Pneumonia: Endorsing progressively worsening shortness of breath, nonproductive cough -Leukocytosis of 21.3K, nontoxic in appearance -Chest x-ray with anterior full development of right upper lobe airspace opacity likely pneumonia -Zosyn started empirically in ED. Continue to follow blood culture. -Duo nebs QIDR, supplemental O2 (4) COPD (chronic obstructive pulmonary disease): Did not appreciate wheezing on lung exam -Continue duonebs, Combivent inhaler -On prednisone 10mg BID for [place]. Will hold off on additional steroids for now (5) Acute kidney injury: Creatinine elevated at 1.64 (baseline Cr ~1.2) in setting of infection, poor PO intake -Hold Losartan/hctz -Gentle IV fluids -Repeat BMP tomorrow (6) Diabetes mellitus, type II: A1c of 7.7 in December. Will repeat -Was diagnosed with DM II during previous admission, refused insulin -Discussed DM II diet this admission but patient refused -BSG AC HS with SSI while in-patient (7) Polymyalgia rheumatica: Stable. Continue home dose prednisone (8) HTN (hypertension): Normotensive -Holding losartan/hctz -Add antihypertensive PRN (9) Chronic pain syndrome: Continue home dose gabapentin 600mg TID, methadone 30mg BID -Monitor for lethargy/sedation (10) CVA (cerebral infarction): H/o CVA 20+ years ago with R sided weakness, some cognitive delay -Continue baby aspirin (11) PMR (polymyalgia rheumatica): Continue home dose prednisone (12) Hypothyroidism: TSH wnl. Continue levothyroxine (13) Sleep apnea: Intolerant to CPAP/BiPAP -Continue supplemental O2 HS DVT Ppx: SQ Heparin Code status: DNR per discussion with patient, /POA PCP: [facility] Dispo: Admitted to telemetry. Discharge planning. PT/OT evaluations ordered Patient seen in collaboration with Dr. Morales. Please see addendum. History of Present Illness Chief Complaint: SOB, AMS Primary Care Provider: Chi Meyers MD This is a 77-year-old male with a PMH of COPD (recently started wearing oxygen at bedtime), chronic pain/fibromyalgia on methadone, polymyalgia rheumatica on steroids, history of CVA with residual right-sided weakness, HTN and other medical problems listed below who presents from home with progressive shortness of breath and altered mental status x 2 days. Patient has home care during the day and the providers have noticed "rattling" breathing for the past few weeks as well as progressive shortness of breath. also at bedside to provide history. She has noticed that patient seems slower, confused and "spacey" during conversations and seems to become short of breath with any type of movement. Patient is sedentary at baseline and ambulates by power chair. Has known history of COPD but only recently started to require oxygen at night. Has also had recurrent pneumonia in the past, with most recent admission in January 2018 where he was treated with Zosyn with resolution of symptoms. Patient denies any fever or chills but still feels short of breath, with wheezing and nonproductive cough. 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 Patient denies headache, lightheadedness, chest pain, palpitations, nausea, vomiting, abdominal pain, dysuria, diarrhea or constipation. Does have some right lower extremity swelling that is new, per but is nontender. In ED, patient found to be hemodynamically stable with oxygen 88% on room air, now 94% on 2L. Leukocytosis of 20 1.3K, hemoglobin stable at 11.8, creatinine elevated at 1.64 (baseline Cr ~1.2). CT head without acute change. Chest x-ray with interval development of right upper lung airspace opacity, likely pneumonia. Was started empirically on Zosyn. VBG with respiratory acidosis of 7.3. Allergies Allergy/AdvReac Type Severity Reaction Status Date / Time Iodinated Contrast- Oral and Allergy Intermediate HIVES Verified 09/23/18 10:43 IV Dye Home Medications Home Medications Medication Instructions Recorded Confirmed Type cholecalciferol (vitamin D3) 2,000 unit PO DAILY #0 06/05/16 09/23/18 History duloxetine 60 mg PO QAM #0 06/05/16 09/23/18 History aspirin [Ecotrin Low Strength] 81 mg PO DAILY #0 07/03/16 09/23/18 History omeprazole 20 mg PO QAM #0 07/03/16 09/23/18 History prednisone 10 mg PO BID #0 tab 08/29/16 09/23/18 History donepezil 5 mg PO HS #0 10/11/16 09/23/18 History levothyroxine 25 mcg PO MOWEFR@0900 #0 10/11/16 09/23/18 History Lactobacillus acidophilus 1 cap PO BID #0 01/08/17 09/23/18 History cyanocobalamin (vitamin B-12) 1,000 mcg PO DAILY #0 01/08/17 09/23/18 History gabapentin 600 mg PO TID #0 01/08/17 09/23/18 History levothyroxine 50 mcg PO SUTUTHSA@0900 #0 01/08/17 09/23/18 History Krill Oil (Bynum 3 and 6) 1 cap PO DAILY #0 01/01/18 09/23/18 History celecoxib 200 mg PO DAILY #0 cap 01/01/18 09/23/18 History methadone 30 mg PO BID #0 01/01/18 09/23/18 History fluticasone propionate 1 spray INTRANASAL DAILY PRN 09/23/18 09/23/18 History ipratropium-albuterol [Combivent 1 puff INHALATION QID 09/23/18 09/23/18 History Respimat] losartan-hydrochlorothiazide 1 tab PO DAILY 09/23/18 09/23/18 History Past Med/Surg History Medical History Diabetes mellitus, type II (Chronic) Polymyalgia rheumatica (Chronic) Atrial tachycardia (Chronic) HTN (hypertension) (Chronic) Fibromyalgia (Chronic) CVA (cerebral infarction) (Chronic) residual R sided weakness COPD (chronic obstructive pulmonary disease) (Chronic) Sleep apnea (Chronic) CPAP/BiPAP intolerant Hypothyroidism (Chronic) PMR (polymyalgia rheumatica) (Chronic) Chronic pain syndrome (Chronic) FELICITA (iron deficiency anemia) (Chronic) Monoclonal gammopathy (Chronic) Surgical History S/P small bowel resection (Chronic) H/O hernia repair (Chronic) Family History Other No pertinent family history Social History Preferred Language: Syrian Communication Ability: Effective Visual Impairment: No Limitations Hearing Ability: Normal Beliefs That Will Affect Care: None marital status: Current Living Situation: Spouse Current Living Situation Comment: home with home health Other Information That Helps Us Care for You: No Feels Safe at Home: Yes Safety Concerns: Feels Safe At This Time Smoking Status: Former smoker Smoking End Date: 2008 Hx Alcohol Use: No Hx Substance Use: No Review of Systems Review of Systems: At least ten systems reviewed and negative except as noted in the HPI. Physical Exam Physical Exam: General Appearance: WD/WN, no apparent distress, morbidly obese, short of breath when speaking Head: normocephalic, atraumatic Eyes: normal inspection, PERRL, EOMI ENT: hearing grossly normal, pharynx normal (moist mucous membranes) Neck: supple, no JVD, no adenopathy Respiratory/Chest: Decreased breath sounds. Rhonci throughout lung jha. No wheezing or rales noted. No respiratory distress or accessory muscle use. O2 saturation 95% on 2L NC Cardiovascular: tachycardic, regular rhythm, no murmur, normal peripheral pulses Abdomen/GI: normal bowel sounds, soft, non-tender to palpation Extremities/Musculoskelatal: normal inspection, normal capillary refill, no pedal edema. R>L lower extremity. No calf tenderness. Neurologic/Psych: alert, normal mood/affect, oriented x 3. Not fully oriented to situation. Poor insight/judgement Skin: normal color, warm/dry Results & Data Vital Signs (Past 12 Hours) Vital Signs Temp Pulse Resp BP Pulse Ox 09/23/18 08:58 94 09/23/18 08:53 36.9 C 95 H 20 148/62 H 89 L Laboratory Results Short CBC 09/23/18 Range/Units 09:11 WBC 21.34 H (4.8-10.8) K/uL Hgb 11.8 L (14.0-18.0) g/dL Hct 37.7 L (42-52) % Plt Count 260 (130-400) K/uL BMP 09/23/18 09:11 Sodium 134 L Potassium 4.3 Chloride 98 Carbon Dioxide 32 BUN 26 H Creatinine 1.64 H Glucose 132 H Calcium 9.0 Cardiac Enzymes 09/23/18 Range/Units 09:11 Troponin I < 0.015 (0-0.045) ng/ml Liver Function 09/23/18 Range/Units 09:11 Total Bilirubin 0.5 (0.2-1) mg/dl AST 11 L (15-37) U/L ALT 21 (12-78) U/L Alkaline Phosphatase 77 (45-117) U/L Albumin 2.6 L (3.4-5.0) gm/dl Diagnostic Findings CT head: Impression: No acute intracranial abnormality. CXR: IMPRESSION: Interval development of a right upper lobe airspace opacity. This likely represents a pneumonia. One month chest x-ray follow-up is recommended to ensure resolution. Supervising Physician Co-Signing Physician Notes Pt was seen and examined . Agreed with Syl exam, assessment and plan. 77-year-old male with a PMH of COPD, chronic pain/fibromyalgia on methadone, polymyalgia rheumatica on steroids, history of CVA with residual right-sided weakness, HTN presents from home with progressive shortness of breath and altered mental status. CXR on admission showed interval development of a right upper lobe airspace opacity. CT head done on admission showed no acute intracranial abnormality. Elevated WBC on admission. Received IV Zosyn on admission. Blood cx and urine cx collected in the ER. Will continue IV abx for now. Aspiration precaution. Monitor CBC. Continue Monitor closely. MD Andrew
[2018-09-23] MEDS ORDERED: ACETAMINOPHEN 325 MG TAB PO PRN (14:11)
[2018-09-23] MEDS ORDERED: POLYETHYLENE (MIRALAX) 17 GM PACK PO PRN (14:11)
[2018-09-23] MEDS ORDERED: FLUTICASONE PROPIONATE NA SPR 16 GM BTL NAE PRN (14:11)
[2018-09-23] MEDS ORDERED: SODIUM CHLORIDE 0.9% 1000ML 1,000 ML IV SCH (15:15)
[2018-09-23] MEDS: IPRATROPIUM BROMIDE/ALBUTEROL respimat INH INH SCH ×3 (15:25→21:02)
[2018-09-23] MEDS: GABAPENTIN 600 MG TAB PO SCH ×2 (15:26→21:03)
[2018-09-23] MEDS: HEPARIN SOD 5,000 UNIT/0.5 ML VIAL SQ SCH ×3 (15:26→22:54)
[2018-09-23] MEDS: predniSONE 10 MG TABLET PO SCH (15:27)
--- NOTE | 2018-09-23 17:16 | Ultrasound Report ---
US venous doppler LE BI CLINICAL HISTORY: 77 years-old Male presenting with R>L swelling, r/o DVT. TECHNIQUE: Real-time grayscale and color and spectral Doppler ultrasound imaging of the veins of the bilateral lower extremities was performed. Compression and augmentation were also utilized. COMPARISON: 09/08/2015. FINDINGS: RIGHT: Common femoral vein: Patent. Greater saphenous vein (superficial): Patent. Deep femoral vein: Patent. Femoral vein: Patent. Popliteal vein: Patent. Calf veins: Limited visualization secondary to subcutaneous edema. LEFT: Common femoral vein: Patent. Greater saphenous vein (superficial): Patent. Deep femoral vein: Patent. Femoral vein: Patent. Popliteal vein: Patent. Calf veins: Limited visualization secondary to subcutaneous edema. Other: None. IMPRESSION: 1. No evidence of deep venous thrombosis. 2. Subcutaneous edema in the lower legs. Electronically signed by: Noam Araya M.D. 09/23/2018 5:15 PM
[2018-09-23] MEDS ORDERED: GLUCOSE 40% GEL 15 GM TUBE PO PRN (17:30)
[2018-09-23] MEDS ORDERED: GLUCAGON FOR INJ 1 MG VIAL SQ PRN (17:30)
[2018-09-23] MEDS ORDERED: CARBOHYDRATES FOR HYPOGLYCEMIA PO PRN (17:30)
[2018-09-23] MEDS ORDERED: GLUCOSE 10 TABS/TUBE PO PRN (17:30)
[2018-09-23] MEDS ORDERED: DEXTROSE 50% 50 ML SYRINGE IV PRN (17:30)
[2018-09-23] MEDS: PIPERACILLIN/TAZOBACTAM 4.5 GM in DEXTROSE 5% 100 ML IV SCH (17:58)
[2018-09-23] MEDS ORDERED: ALBUT/IPRATROP 3MG/0.5MG NEB 3 ML VIAL NEB SCH (20:00)
[2018-09-23] MEDS ORDERED: ALBUT/IPRATROP 3MG/0.5MG NEB 3 ML VIAL NEB PRN (20:00)
[2018-09-23] MEDS: METHADONE HCL 10 MG TAB PO SCH (21:02)
[2018-09-23] MEDS: LACTOBACILLUS ACIDOPHILUS (FLORANEX) TAB PO SCH (21:03)
[2018-09-23] MEDS: DONEPEZIL HCL 5 MG TAB PO SCH (21:03)
[2018-09-23] MEDS: INSULIN ASPART 100 UNITS/ML 3 ML PEN SC SCH ×2 (21:04→21:05)
[2018-09-23 21:36] LABS: Appearance Urine Clear (Clear); Bacteria Urine Automated Negative (Negative); Bilirubin Urine Negative (Negative); Color Urine Dark Yellow; Glucose Urine UA Negative (Negative); Ketones Urine Trace (Negative); Leukocyte Esterase Urine Trace (Negative); Nitrite Urine Negative (Negative); Protein Urine Negative (Negative); Specific Gravity Urine 1.022 (1.000-1.030); Urobilinogen Urine Negative (Negative)
[2018-09-24] MEDS: PIPERACILLIN/TAZOBACTAM 4.5 GM in DEXTROSE 5% 100 ML IV SCH ×3 (03:10→19:01)
[2018-09-24] MEDS: HEPARIN SOD 5,000 UNIT/0.5 ML VIAL SQ SCH ×3 (05:13→21:06)
[2018-09-24] MEDS ORDERED: LEVOTHYROXINE SODIUM 25 MCG TABLET PO SCH (06:30)
[2018-09-24 07:09] LABS: Hematocrit (blood only) 34.7 % (42-52); Hemoglobin 10.8 g/dL (14.0-18.0); Mean Corpuscular Hgb Conc 31.1 g/dL (32-36); Mean Corpuscular Volume 76.8 fL (80-100); Platelet Count 233 K/uL (130-400); Red Blood Count 4.52 M/uL (4.7-6.1); White Blood Count 11.83 K/uL (4.8-10.8)
[2018-09-24 07:43] LABS: BUN Creatinine Ratio 19.4 (10-20); Calcium 8.8 mg/dl (8.5-10.1); Creatinine Clr Calc Pharmacy 62.9 ml/min; Est GFR (Non-African American) 45.7; Potassium 3.2 mmol/L (3.5-5.1)
[2018-09-24] MEDS: INSULIN ASPART 100 UNITS/ML 3 ML PEN SC SCH ×4 (07:46→21:03)
[2018-09-24 07:50] LABS: Estimated Average Glucose 174 mg/dl
[2018-09-24] MEDS ORDERED: POTASSIUM CHLORIDE 20 MEQ TABCR PO STA (08:32)
--- NOTE | 2018-09-24 08:38 | Hospitalist Progress Note ---
Date of Service September 24, 2018 Assessment & Plan (1) Acute respiratory failure with hypoxia: This is a 77-year-old male with a PMH of COPD (recently started wearing oxygen at bedtime), chronic pain/fibromyalgia on methadone, polymyalgia rheumatica on steroids, history of CVA with residual right-sided weakness, HTN and other medical problems listed below who presents from home with progressive shortness of breath and altered mental status x 2 days and was found to acute on chronic respiratory failure in setting of pneumonia as well as MINDY. -Initially hypoxic with 88% on room air, now 94 % on RA -Recently started requiring oxygen at bedtime. Used 1 L for the first time night prior to admission -Now saturating well on RA and off oxygen (2) Metabolic encephalopathy: RESOLVED Cognitive slowing but no overt confusion, per family. In setting of infection. -AAOX3 now, near his baseline -CT head without evidence of acute abnormality -VBG with respiratory acidosis with pH of 7.3, pCO2 in 60s, history of COPD and DEMETRIS -ABG performed later with pH of 7.4, no lethargy and cognitive status improving. Has not tolerated BiPAP/CPAP in the past and no indication currently. (3) Pneumonia: Endorsing progressively worsening shortness of breath, nonproductive cough -Afebrile, leukocytosis trending down -Chest x-ray with anterior full development of right upper lobe airspace opacity likely pneumonia -Zosyn started empirically in ED. continue with IV Zosyn- Day 2 -Duo nebs QIDR, supplemental O2 -Follow up blood culture- Pending (4) COPD (chronic obstructive pulmonary disease): Did not appreciate wheezing on lung exam on admission -Continue duonebs, Combivent inhaler -On prednisone 10mg BID for [place]. Will hold off on additional steroids for now (5) Acute kidney injury: Creatinine elevated at 1.64 (baseline Cr ~1.2) in setting of infection, poor PO intakeimproving and trending down -Hold Losartan/hctz -IVF - discontinue today -Monitor (6) Diabetes mellitus, type II: A1c of 7.7 in December. -Was diagnosed with DM II during previous admission, refused insulin -Discussed DM II diet this admission but patient refused -BSG AC HS with SSI while in-patient (7) Polymyalgia rheumatica: Stable. Continue home dose prednisone BID (8) HTN (hypertension): Normotensive -Holding losartan/hctz -Add antihypertensive PRN (9) Chronic pain syndrome: Continue home dose gabapentin 600mg TID, methadone 30mg BID (10) CVA (cerebral infarction): H/o CVA 20+ years ago with R sided weakness, some cognitive delay -Continue baby aspirin (11) Hypothyroidism: TSH wnl. Continue levothyroxine (12) Sleep apnea: Intolerant to CPAP/BiPAP -Continue supplemental O2 HS Ambulatory dysfunction Wheel chair bound at home due to prior stroke Uses power chair DVT Ppx: SQ Heparin Code status: DNR per discussion with patient, /POA PCP: [facility] Dispo: PT/OT ordered Has care givers at home as ambulatory dysfunction wheel chair bound. Transfer to [facility]-surg Likely discharge in AM Subjective Patient is doing well and sitting comfortably in his chair. Shortness of breath is back to his baseline. Denies any cough today. No sputum production. No chest pain, fever, chills. Off oxygen, saturating 94% on room air. Feels like he is almost back to his baseline. Physical Exam Physical Exam: GENERAL- AAOX3, No acute distress; OBESE +, Wheel Chair Bound LUNGS- Air entry bilaterally equal. No rales, rhonchi, crackles, wheezes heard. HEART- Regular rate and rhythm. No murmurs ABDOMEN- Soft, non tender, non distended, Bowel sounds heard. EXTREMITIES- Bilateral Edema; Right > Left NEUROMUSCULAR- AAOX3, Residual right sided weakness from prior stroke Results & Data Vital Signs (Past 12 Hours) Vital Signs Temp Pulse Pulse Resp BP Pulse Ox 09/24/18 06:58 36.6 C 86 19 169/73 H 92 09/24/18 03:09 36.9 C 76 19 165/75 H 95 09/24/18 02:30 82 09/23/18 23:10 36.7 C 68 17 149/64 H 96
[2018-09-24] MEDS: CYANOCOBALAMIN 500 MCG TABLET (VITAMIN B-12) PO SCH (08:47)
[2018-09-24] MEDS: DULOXETINE HCL 60 MG CAP PO SCH (08:48)
[2018-09-24] MEDS: ASPIRIN 81 MG ECTAB PO SCH (08:49)
[2018-09-24] MEDS: predniSONE 10 MG TABLET PO SCH ×2 (08:49→18:59)
[2018-09-24] MEDS: PANTOprazole 40 MG TAB PO SCH (08:49)
[2018-09-24] MEDS: CHOLECALCIFEROL 1,000 UNITS TAB PO SCH (08:49)
[2018-09-24] MEDS: LACTOBACILLUS ACIDOPHILUS (FLORANEX) TAB PO SCH ×2 (08:49→21:07)
[2018-09-24] MEDS: GABAPENTIN 600 MG TAB PO SCH ×3 (08:49→21:07)
[2018-09-24] MEDS: IPRATROPIUM BROMIDE/ALBUTEROL respimat INH INH SCH ×4 (08:49→21:07)
[2018-09-24] MEDS: METHADONE HCL 10 MG TAB PO SCH ×2 (08:51→21:24)
[2018-09-24] MEDS ORDERED: CeleBREX 200 MG CAP PO SCH (09:00)
[2018-09-24] MEDS: DONEPEZIL HCL 5 MG TAB PO SCH (21:07)
[2018-09-25] MEDS: PIPERACILLIN/TAZOBACTAM 4.5 GM in DEXTROSE 5% 100 ML IV SCH ×2 (01:50→10:25)
[2018-09-25] MEDS: HEPARIN SOD 5,000 UNIT/0.5 ML VIAL SQ SCH (05:28)
[2018-09-25] MEDS ORDERED: LEVOTHYROXINE SODIUM 50 MCG TABLET PO SCH (06:30)
[2018-09-25 06:38] LABS: Hematocrit (blood only) 33.6 % (42-52); Hemoglobin 10.6 g/dL (14.0-18.0); Mean Corpuscular Hgb Conc 31.5 g/dL (32-36); Mean Corpuscular Volume 75.7 fL (80-100); Mean Platelet Volume 10.3 fL (7.4-10.4); Platelet Count 236 K/uL (130-400); RDW Coefficient of Variation 17.5 % (11.5-14.5); RDW Standard Deviation 49.2 fL (36.4-46.3); Red Blood Count 4.44 M/uL (4.7-6.1); White Blood Count 9.76 K/uL (4.8-10.8)
[2018-09-25 07:21] VITALS: BP 155/91; PULSE 88; TEMP 97.5; O2SAT 97
[2018-09-25 07:21] LABS: BUN Creatinine Ratio 17.8 (10-20); Calcium 8.8 mg/dl (8.5-10.1); Creatinine Clr Calc Pharmacy 77.9 ml/min; Est GFR (African American) 68.6; Est GFR (Non-African American) 59.2; Magnesium 1.9 mg/dl (1.8-2.4); Potassium 3.8 mmol/L (3.5-5.1)
[2018-09-25] MEDS: METHADONE HCL 10 MG TAB PO SCH (08:26)
[2018-09-25] MEDS: LACTOBACILLUS ACIDOPHILUS (FLORANEX) TAB PO SCH (08:27)
[2018-09-25] MEDS: GABAPENTIN 600 MG TAB PO SCH (08:27)
[2018-09-25] MEDS: predniSONE 10 MG TABLET PO SCH (08:28)
[2018-09-25] MEDS: CHOLECALCIFEROL 1,000 UNITS TAB PO SCH (08:28)
[2018-09-25] MEDS: DULOXETINE HCL 60 MG CAP PO SCH (08:29)
[2018-09-25] MEDS: INSULIN ASPART 100 UNITS/ML 3 ML PEN SC SCH ×2 (08:32→12:43)
[2018-09-25] MEDS: CYANOCOBALAMIN 500 MCG TABLET (VITAMIN B-12) PO SCH (08:33)
[2018-09-25] MEDS: ASPIRIN 81 MG ECTAB PO SCH (08:33)
--- NOTE | 2018-09-25 09:11 | Hospitalist Progress Note ---
Date of Service September 25, 2018 Assessment & Plan (1) Acute respiratory failure with hypoxia: This is a 77-year-old male with a PMH of COPD (recently started wearing oxygen at bedtime), chronic pain/fibromyalgia on methadone, polymyalgia rheumatica on steroids, history of CVA with residual right-sided weakness, HTN and other medical problems listed below who presents from home with progressive shortness of breath and altered mental status x 2 days and was found to acute on chronic respiratory failure in setting of pneumonia as well as MINDY. -Initially hypoxic with 88% on room air, now 97 % on RA -Recently started requiring oxygen at bedtime. Used 1 L for the first time night prior to admission -Now saturating well on RA and off oxygen -Continue to use 1 L oxygen at night time as prior to admission (2) Metabolic encephalopathy: RESOLVED Cognitive slowing but no overt confusion, per family. In setting of infection. -AAOX3 now, near his baseline -CT head without evidence of acute abnormality -VBG with respiratory acidosis with pH of 7.3, pCO2 in 60s, history of COPD and DEMETRIS -ABG performed later with pH of 7.4, no lethargy and cognitive status improving. Has not tolerated BiPAP/CPAP in the past and no indication currently. (3) Pneumonia: Endorsing progressively worsening shortness of breath, nonproductive cough -Afebrile, leukocytosis trending down -Chest x-ray with anterior full development of right upper lobe airspace opacity likely pneumonia -Zosyn IV X 2 day---> Change to Augmentin BID x 5 more days to complete course of 7 days of antibiotics -Duo nebs QID, supplemental O2 -Blood cx x 2 - Negative (4) COPD (chronic obstructive pulmonary disease): Did not appreciate wheezing on lung exam on admission -Continue Duonebs, Combivent inhaler -On prednisone 10mg BID for [place]. No indication for additional steroids during this hospitalization. (5) Acute kidney injury: Creatinine elevated at 1.64 (baseline Cr ~1.2) in setting of infection, poor PO intakeimproving and trending down Resolved -OK to restart Losartan/hctz -S/P IVF (6) Diabetes mellitus, type II: A1c of 7.7 in December. -Was diagnosed with DM II during previous admission, refused insulin -Discussed DM II diet this admission but patient refused -BSG AC HS with SSI while in-patient (7) Polymyalgia rheumatica: Stable. Continue home dose prednisone BID (8) HTN (hypertension): Normotensive -OK to restart Losartan/HCTZ (9) Chronic pain syndrome: Continue home dose gabapentin 600mg TID, methadone 30mg BID (10) CVA (cerebral infarction): H/o CVA 20+ years ago with R sided weakness, some cognitive delay -Continue baby aspirin (11) Hypothyroidism: TSH wnl. Continue levothyroxine (12) Sleep apnea: Intolerant to CPAP/BiPAP -Continue supplemental O2 HS Ambulatory dysfunction Wheel chair bound at home due to prior stroke Uses power chair DVT Ppx: SQ Heparin Code status: DNR per discussion with patient, /POA PCP: [facility] Dispo: PT/OT ordered Has care givers at home as ambulatory dysfunction wheel chair bound. Ok to discharge home with home services today. Family has arranged wheelchair transportation at 1 PM today Subjective Patient is doing well and comfortable. SOB is back to his baseline. Denies any cough today. No sputum production. No chest pain, fever, chills. Off oxygen, saturating 97% on RA. Feels like he is almost back to his baseline. Eager to be discharged Physical Exam Physical Exam: GENERAL- AAOX3, No acute distress; OBESE +, Wheel Chair Bound LUNGS- Air entry bilaterally equal. No rales, rhonchi, crackles, wheezes heard. HEART- Regular rate and rhythm. No murmurs ABDOMEN- Soft, non tender, non distended, Bowel sounds heard. EXTREMITIES- Bilateral Edema; Right > Left NEUROMUSCULAR- AAOX3, Residual right sided weakness from prior stroke Results & Data Vital Signs (Past 12 Hours) Vital Signs Temp Pulse Resp BP Pulse Ox 09/25/18 07:20 36.4 C L 88 18 155/91 H 97 09/24/18 23:30 36.6 C 72 22 157/104 H 95
--- NOTE | 2018-09-25 09:18 | Discharge Summary ---
Date of Service September 25, 2018 Admission HPI Per Admitting Provider This is a 77-year-old male with a PMH of COPD (recently started wearing oxygen at bedtime), chronic pain/fibromyalgia on methadone, polymyalgia rheumatica on steroids, history of CVA with residual right-sided weakness, HTN and other medical problems listed below who presents from home with progressive shortness of breath and altered mental status x 2 days. Patient has home care during the day and the providers have noticed "rattling" breathing for the past few weeks as well as progressive shortness of breath. also at bedside to provide history. She has noticed that patient seems slower, confused and "spacey" during conversations and seems to become short of breath with any type of movement. Patient is sedentary at baseline and ambulates by power chair. Has known history of COPD but only recently started to require oxygen at night. Has also had recurrent pneumonia in the past, with most recent admission in January 2018 where he was treated with Zosyn with resolution of symptoms. Patient denies any fever or chills but still feels short of breath, with wheezing and nonproductive cough. 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 Patient denies headache, lightheadedness, chest pain, palpitations, nausea, vomiting, abdominal pain, dysuria, diarrhea or constipation. Does have some right lower extremity swelling that is new, per but is nontender. In ED, patient found to be hemodynamically stable with oxygen 88% on room air, now 94% on 2L. Leukocytosis of 20 1.3K, hemoglobin stable at 11.8, creatinine elevated at 1.64 (baseline Cr ~1.2). CT head without acute change. Chest x-ray with interval development of right upper lung airspace opacity, likely pneumonia. Was started empirically on Zosyn. VBG with respiratory acidosis of 7.3. Principal Diagnosis 1. Acute respiratory failure with hypoxia 2. Probable pneumonia, right upper lobe 3. Metabolic encephalopathy, resolved 4. Acute kidney injury on chronic kidney disease stage III 5. Hypokalemia Secondary diagnoses on discharge 1. Hypertension 2. Chronic pain syndrome 3. History of CVA with residual deficits, right-sided weakness 4. Hypothyroidism 5. Obstructive sleep apnea, unable to tolerate CPAP/BiPAP 6. Chronic pain syndrome on methadone 7. Ambulatory dysfunction 8. Diabetes mellitus type 2 9. Obesity Discharge Exam GENERAL- AAOX3, No acute distress; OBESE +, Wheel Chair Bound LUNGS- Air entry bilaterally equal. No rales, rhonchi, crackles, wheezes heard. HEART- Regular rate and rhythm. No murmurs ABDOMEN- Soft, non tender, non distended, Bowel sounds heard. EXTREMITIES- Bilateral Edema; Right > Left NEUROMUSCULAR- AAOX3, Residual right sided weakness from prior stroke Discharge Data Allergies Allergy/AdvReac Type Severity Reaction Status Date / Time Iodinated Contrast- Oral and Allergy Intermediate HIVES Verified 09/23/18 10:43 IV Dye Consultations 09/23/18 11:10 ED Decision to Admit Stat 09/23/18 14:11 Consult Case Management - Discharge Planning Routine Ordered Studies 09/23/18 08:56 CT head/brain wo con Stat 09/23/18 12:16 US venous doppler LE BI Routine Hospital Course (1) Acute respiratory failure with hypoxia: This is a 77-year-old male with a PMH of COPD (recently started wearing oxygen at bedtime), chronic pain/fibromyalgia on methadone, polymyalgia rheu matica on steroids, history of CVA with residual right-sided weakness, HTN and other medical problems listed below who presents from home with progressive shortness of breath and altered mental status x 2 days and was found to acute on chronic respiratory failure in setting of pneumonia as well as MINDY. -Initially hypoxic with 88% on room air, now 97 % on RA -Recently started requiring oxygen at bedtime. Used 1 L for the first time night prior to admission -Now saturating well on RA and off oxygen -Continue to use 1 L oxygen at night time as prior to admission (2) Metabolic encephalopathy: RESOLVED Cognitive slowing but no overt confusion, per family. In setting of infection. -AAOX3 now, near his baseline -CT head without evidence of acute abnormality -VBG with respiratory acidosis with pH of 7.3, pCO2 in 60s, history of COPD and DEMETRIS -ABG performed later with pH of 7.4, no lethargy and cognitive status improving. Has not tolerated BiPAP/CPAP in the past and no indication currently. (3) Pneumonia: Endorsing progressively worsening shortness of breath, nonproductive cough -Afebrile, leukocytosis trending down -Chest x-ray with anterior full development of right upper lobe airspace opacity likely pneumonia -Zosyn IV X 2 day---> Change to Augmentin BID x 5 more days to complete course of 7 days of antibiotics -Duo nebs QID, supplemental O2 -Blood cx x 2 - Negative (4) COPD (chronic obstructive pulmonary disease): Did not appreciate wheezing on lung exam on admission -Continue Duonebs, Combivent inhaler -On prednisone 10mg BID for OK. No indication for additional steroids during this hospitalization. (5) Acute kidney injury: Creatinine elevated at 1.64 (baseline Cr ~1.2) in setting of infection, poor PO intakeimproving and trending down Resolved -OK to restart Losartan/hctz -S/P IVF (6) Diabetes mellitus, type II: A1c of 7.7 in December. -Was diagnosed with DM II during previous admission, refused insulin -Discussed DM II diet this admission but patient refused -BSG AC HS with SSI while in-patient (7) Polymyalgia rheumatica: Stable. Continue home dose prednisone BID (8) HTN (hypertension): Normotensive -OK to restart Losartan/HCTZ (9) Chronic pain syndrome: Continue home dose gabapentin 600mg TID, methadone 30mg BID (10) CVA (cerebral infarction): H/o CVA 20+ years ago with R sided weakness, some cognitive delay -Continue baby aspirin (11) Hypothyroidism: TSH wnl. Continue levothyroxine (12) Sleep apnea: Intolerant to CPAP/BiPAP -Continue supplemental O2 HS Ambulatory dysfunction Wheel chair bound at home due to prior stroke Uses power chair DVT Ppx: SQ Heparin Code status: DNR per discussion with patient, /POA PCP: [facility] Dispo: PT/OT ordered Has care givers at home as ambulatory dysfunction wheel chair bound. Ok to discharge home with home services today. Family has arranged wheelchair transportation at 1 PM today Total Time Total Time Spent Total Time Spent (In Minutes): 35 minutes Discharge Plan Discharge Items Patient Disposition: Home - Home Health Services Reason For Visit: PNA, HYPOXIA,AMS Discharge Diagnosis: 1. Acute hypoxic respiratory failure, resolved 2. Pneumonia Discharge Goals: Decrease discomfort Activity: Resume your previous activity Activity Comment: as tolerated prior to admission Non-emergency contact: Primary Care Provider Call non-emergency contact if: your symptoms worsen Follow-up/Referrals: Chi Meyers MD [Primary Care Provider] - 09/30/18 11:45 am Diet: Carb Consistent or DM2, Heart Healthy and Low Fat Addtl Provider Instructions: You were admitted to the hospital for pneumonia, acute hypoxic respiratory failure. OXYGEN Continue to use it at night as prior to admission You do not require oxygen during day time MEDICATION CHANGES : New medication - Augmentin 875 orally twice a day x 5 more days to complete course of 7 days of antibiotics Prescriptions: New amoxicillin-pot clavulanate [Augmentin] 875-125 mg tablet 1 tab PO BID 5 Days Qty: 10 RF: 0 Continued cholecalciferol (vitamin D3) 2,000 unit Tablet 2,000 unit PO DAILY Qty: 0 RF: 0 duloxetine 60 mg Capsule,Delayed Release(Dr/Ec) 60 mg PO QAM Qty: 0 RF: 0 aspirin [Ecotrin Low Strength] 81 mg Tablet,Delayed Release (Dr/Ec) 81 mg PO DAILY Qty: 0 RF: 0 omeprazole 20 mg Capsule,Delayed Release(Dr/Ec) 20 mg PO QAM Qty: 0 RF: 0 prednisone 10 mg Tablet 10 mg PO BID Qty: 0 RF: 0 donepezil 5 mg Tablet 5 mg PO HS Qty: 0 RF: 0 levothyroxine 25 mcg Tablet 25 mcg PO MOWEFR@0900 Qty: 0 RF: 0 gabapentin 600 mg Tablet 600 mg PO TID Qty: 0 RF: 0 cyanocobalamin (vitamin B-12) 1,000 mcg Tablet 1,000 mcg PO DAILY Qty: 0 RF: 0 levothyroxine 50 mcg Tablet 50 mcg PO SUTUTHSA@0900 Qty: 0 RF: 0 Lactobacillus acidophilus Capsule 1 cap PO BID Qty: 0 RF: 0 Krill Oil ([place] 3 and 6) 1000-130(40-80) mg Capsule 1 cap PO DAILY Qty: 0 RF: 0 methadone 10 mg Tablet 30 mg PO BID Qty: 0 RF: 0 celecoxib 200 mg Capsule 200 mg PO DAILY Qty: 0 RF: 0 fluticasone propionate 50 mcg/actuation [place],Suspension 1 spray INTRANASAL DAILY PRN (Reason: Allergic Symptoms) RF: 0 losartan-hydrochlorothiazide 100-12.5 mg Tablet 1 tab PO DAILY RF: 0 Combivent Respimat 20-100 mcg/actuation Mist 1 puff INHALATION QID RF: 0 Stand-Alone Forms: My [facility]/Other Patient Handouts: Diabetes Type 2 Coping, Diabetes Meal Planning, Diabetes Type 2 Discharge Orders: Discharge Order (Routine); Ordered 09/25/18 Ordered By: Cami Williamson Admission Data Admit Date/Time: 09/23/18 12:45 Attending Provider: Cami Williamson Admit Provider: Pablo Morales Primary Care Provider: Chi Meyers Other Providers: Ernestina Castillo Service: Medical
[2018-09-25] MEDS: IPRATROPIUM BROMIDE/ALBUTEROL respimat INH INH SCH ×2 (10:24→12:27)
[2018-09-25] MEDS: PANTOprazole 40 MG TAB PO SCH (10:24)
== END 2018-09-25 13:57 | disposition home health service (06) | DRG 193 ==
LOC: ED 08:35 → SUATTDRO 12:45 → 2S 12:45 → 2N 09-24 13:22

== ENCOUNTER 2018-10-22 10:52 | Observation (INO) ==
[2018-10-22] MEDS ORDERED: ALBUT/IPRATROP 3MG/0.5MG NEB 3 ML VIAL INH STA (11:27)
--- NOTE | 2018-10-22 12:09 | XRay Report ---
XR chest 1V portable CLINICAL HISTORY: sob COMPARISON STUDY: September 23, 2018 FINDINGS: The heart is mildly enlarged. There is aortic tortuosity/ectasia. There is been resolution of the previously identified right upper lung zone airspace opacities. There is no acute parenchymal consolidation.[ There is slight tracheal deviation to the right, finding unchanged the prior study IMPRESSION: 1. Interval resolution of the previously identified right upper lobe airspace opacities. This suggest s a resolved pneumonia 2. Persistent aortic tortuosity/ectasia Electronically signed by: Dominic Darling M.D. 10/22/2018 12:08 PM
[2018-10-22 12:23] LABS: Basophils # (auto) 0.01 K/uL (0-0.2); Basophils % (auto) 0.1 %; Eosinophils # (auto) 0.05 K/uL (0-0.5); Eosinophils % (auto) 0.4 %; Hematocrit (blood only) 39.1 % (42-52); Hemoglobin 12.3 g/dL (14.0-18.0); Immature Granulocytes # (auto) 0.16 K/uL (0.00-0.02); Immature Granulocytes % (auto) 1.3 %; Lymphocytes # (auto) 0.82 K/uL (1.2-3.4); Lymphocytes % (auto) 6.5 %; Mean Corpuscular Hgb Conc 31.5 g/dL (32-36); Mean Platelet Volume 10.3 fL (7.4-10.4); Monocytes # (auto) 0.54 K/uL (0.11-0.59); Monocytes % (auto) 4.3 %; Neutrophils # (auto) 10.96 K/uL (1.4-6.5); Neutrophils % (auto) 87.4 %; Platelet Count 223 K/uL (130-400); RDW Coefficient of Variation 17.8 % (11.5-14.5); RDW Standard Deviation 50.1 fL (36.4-46.3); Red Blood Count 5.08 M/uL (4.7-6.1); White Blood Count 12.54 K/uL (4.8-10.8)
[2018-10-22 12:36] LABS: Partial Thromboplastin Ratio 0.9; Partial Thromboplastin Time 25.4 Seconds (21.0-31.0); Prothrombin Time 9.9 Seconds (9.0-12.0)
[2018-10-22 12:44] LABS: Blood Urea Nitrogen 20 mg/dl (7-18); Carbon Dioxide 32 mmol/L (21-32); Chloride 99 mmol/L (98-107); Creatinine Clr Calc Pharmacy 79.8 ml/min; Est GFR (African American) 70.7; Potassium 4.1 mmol/L (3.5-5.1); Sodium 137 mmol/L (136-145)
[2018-10-22 12:45] LABS: Alanine Aminotransferase 21 U/L (12-78); Albumin Level 2.9 gm/dl (3.4-5.0); Aspartate Aminotransferase 8 U/L (15-37); BUN Creatinine Ratio 17.1 (10-20); Calcium 9.5 mg/dl (8.5-10.1); Glucose 146 mg/dl (70-99)
[2018-10-22 12:49] LABS: Albumin Globulin Ratio 0.7 (0.9-2); Alkaline Phosphatase 90 U/L (45-117); Bilirubin,Total 0.4 mg/dl (0.2-1); Globulin 4.3 gm/dl (2.5-4.0); Total Protein 7.2 gm/dl (6.4-8.2); Troponin I < 0.015 ng/ml (0-0.045)
[2018-10-22] MEDS ORDERED: cefTRIAXone SODIUM 2,000 MG in DEXTROSE 5% 50 ML IV STA (12:53)
--- NOTE | 2018-10-22 13:28 | Emergency Department Note ---
Entered by Lauren Parker acting as a scribe for Raoul Cordero MD History of Present Illness General Chief complaint: Shortness of Breath/Dyspnea Time Seen by Provider: 10/22/18 11:20 Source: patient Mode of arrival: EMS History of Present Illness Onset (ago): hour(s) 3 Location: left (Lung) and right (Lung) Severity: similar to prior episodes Pain Consistency: + other (Worsening) Quality: + other (Shortness of breath) Associated symptoms: + cough, + shortness of breath and + weakness; no fever/chills Treatments prior to arrival: other (Inhaler, Supplemental oxygen) The patient is a 77 year old male presenting to the Emergency Department via EMS complaining of worsening shortness of breath starting 3 hours ago. The patient reports that he is short of breath. He states that he has a cough. The patient denies fever and chills. The patients reports that the patient has been weak for the past few days. She states that the patient has experienced these symptoms before about a month ago and that he was admitted to the hospital. 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 She notes that the patient does not normally use supplemental oxygen during the day--he does use oxygen at night though. She adds that since the patient has been discharged from the hospital he has finished taking his oral antibiotics. Home Medications Home Medications Medication Instructions Recorded Confirmed Type cholecalciferol (vitamin D3) 2,000 unit PO QAM #0 06/05/16 10/22/18 History duloxetine 60 mg PO QAM #0 06/05/16 10/22/18 History aspirin [Ecotrin Low Strength] 81 mg PO QAM #0 07/03/16 10/22/18 History omeprazole 20 mg PO QAM #0 07/03/16 10/22/18 History prednisone 10 mg PO BID #0 tab 08/29/16 10/22/18 History donepezil 5 mg PO HS #0 10/11/16 10/22/18 History levothyroxine 25 mcg PO MOWEFR@0900 #0 10/11/16 10/22/18 History Lactobacillus acidophilus 1 cap PO BID #0 01/08/17 10/22/18 History cyanocobalamin (vitamin B-12) 1,000 mcg PO QAM #0 01/08/17 10/22/18 History gabapentin 600 mg PO TID #0 01/08/17 10/22/18 History levothyroxine 50 mcg PO SUTUTHSA@0900 #0 01/08/17 10/22/18 History Krill Oil ([place] 3 and 6) 1 cap PO QAM #0 01/01/18 10/22/18 History celecoxib 200 mg PO QAM #0 cap 01/01/18 10/22/18 History methadone 30 mg PO BID #0 01/01/18 10/22/18 History Combivent Respimat 1 puff INHALATION QID PRN 09/23/18 10/22/18 History fluticasone propionate 1 spray INTRANASAL DAILY PRN 09/23/18 10/22/18 History losartan-hydrochlorothiazide 1 tab PO QAM 09/23/18 10/22/18 History amlodipine 5 mg PO DAILY PRN 10/22/18 10/22/18 History latanoprost 1 drp OPHTHALMIC (EYE) HS 10/22/18 10/22/18 History potassium chloride 20 meq PO BID 10/22/18 10/22/18 History tamsulosin 0.4 mg PO DAILY 10/22/18 10/22/18 History Allergies Allergy/AdvReac Type Severity Reaction Status Date / Time Iodinated Contrast- Oral and Allergy Intermediate HIVES Verified 10/22/18 13:15 IV Dye Past Med/Surg History Medical History Nocturnal hypoxemia (Chronic) CKD (chronic kidney disease), stage III (Chronic) Diabetes mellitus, type II (Chronic) Polymyalgia rheumatica (Chronic) Atrial tachycardia (Chronic) HTN (hypertension) (Chronic) Fibromyalgia (Chronic) CVA (cerebral infarction) (Chronic) residual R sided weakness COPD (chronic obstructive pulmonary disease) (Chronic) Sleep apnea (Chronic) CPAP/BiPAP intolerant Hypothyroidism (Chronic) PMR (polymyalgia rheumatica) (Chronic) Chronic pain syndrome (Chronic) FELICITA (iron deficiency anemia) (Chronic) Monoclonal gammopathy (Chronic) Surgical History History of cholecystectomy (Chronic) History of total left knee replacement (Chronic) S/P small bowel resection (Chronic) H/O hernia repair (Chronic) Family History Other No pertinent family history Social History Preferred Language: Chinese Communication Ability: Effective Visual Impairment: No Limitations Hearing Ability: Normal Beliefs That Will Affect Care: None marital status: Current Living Situation: Spouse Current Living Situation Comment: home with home health Feels Safe at Home: Yes Smoking Status: Former smoker Hx Alcohol Use: No Hx Substance Use: No Review of Systems See HPI for pertinent positives & negatives. and A total of 10 systems reviewed and were otherwise negative Physical Exam Vital Signs Vital Signs - 24 hr 10/22/18 10:58 10/22/18 10:59 10/22/18 11:03 Temperature 36.4 C L Temperature Source Oral Sepsis Recent Fever Within 48 Hours No Sepsis Action Taken by Nursing No Action Required Pulse Rate 74 81 75 Pulse Rate [Right Apical] Pulse Rate from SpO2 Sensor 76 75 Respiratory Rate 15 28 H 10 L Respiratory Effort / Characteristics Short of Breath Respiratory Depth Shallow Respiratory Pattern Tachypnea Blood Pressure 163/78 H 140/70 Blood Pressure Mean 106 93 Pulse Oximetry 96 97 97 Oxygen Delivery Method Nasal Cannula Oxygen Flow Rate 2 10/22/18 11:28 10/22/18 11:30 10/22/18 12:00 Temperature Temperature Source Sepsis Recent Fever Within 48 Hours Sepsis Action Taken by Nursing Pulse Rate 73 80 Pulse Rate [Right Apical] Pulse Rate from SpO2 Sensor 69 Respiratory Rate 14 21 Respiratory Effort / Characteristics Respiratory Depth Respiratory Pattern Blood Pressure Blood Pressure Mean Pulse Oximetry 97 95 Oxygen Delivery Method Nasal Cannula Oxygen Flow Rate 2 10/22/18 12:03 10/22/18 12:30 10/22/18 12:59 Temperature Temperature Source Sepsis Recent Fever Within 48 Hours Sepsis Action Taken by Nursing Pulse Rate 79 80 Pulse Rate [Right Apical] 71 Pulse Rate from SpO2 Sensor 81 81 Respiratory Rate 18 19 15 Respiratory Effort / Characteristics Spontaneous Respiratory Depth Respiratory Pattern Blood Pressure 163/78 H Blood Pressure Mean 106 Pulse Oximetry 93 99 99 Oxygen Delivery Method Room Air Oxygen Flow Rate 10/22/18 13:00 10/22/18 13:30 Temperature Temperature Source Sepsis Recent Fever Within 48 Hours Sepsis Action Taken by Nursing Pulse Rate 80 79 Pulse Rate [Right Apical] Pulse Rate from SpO2 Sensor 80 78 Respiratory Rate 10 L 15 Respiratory Effort / Characteristics Respiratory Depth Respiratory Pattern Blood Pressure Blood Pressure Mean Pulse Oximetry 97 99 Oxygen Delivery Method Oxygen Flow Rate GENERAL: Patient is in no acute distress. HEENT: No acute trauma, normocephalic atraumatic, mucous membranes moist, no nasal congestion, no scleral icterus. NECK: No stridor, no adenopathy, no meningismus, trachea is midline. LUNGS: Crackles throughout especially on the right. No wheezing. Breath sounds diminished bilaterally. No respiratory distress. HEART: Without murmurs gallops or rubs, regular rate and rhythm. ABDOMEN: Soft, nontender, bowel sounds positive, no hernias, no peritonitis. EXTREMITIES: No cyanosis. Full range of motion of all the joints without pain or difficulty, no signs for acute trauma. Mild bilateral pedal edema. NEUROLOGIC: Oriented x 3, no acute motor or sensory deficits, no focal weakness. SKIN: No rash, no jaundice, no diaphoresis. Course 1120: EMR reviewed. The patient was discharged from the hospital on 09/25/18 for pneumonia, respiratory failure and confusion. 1123: The patient was evaluated in room C7, and a complete history and physical examination were performed. 1303: I discussed the patient's case with Kelley BENSON. Dr. Letha Orlando hospitalist will evaluate the patient for further management. 1315: I updated the patient and his family at this time. Consultations Consultation #1: I discussed the patient's case with Kelley BENSON. Dr. Letha Orlando will evaluate the patient for further management. Time: 13:03 Administered Medications Albuterol (Duoneb) 3 ml NEB QIDR ADRIEL Stop: 11/21/18 15:59 Last Admin: 10/22/18 15:25 Dose: 3 ml Documented by: [id number] Discontinued Medications Albuterol (Duoneb) 3 ml INH NOW STA Stop: 10/22/18 11:28 Last Admin: 10/22/18 12:03 Dose: 3 ml Documented by: [id number] Ceftriaxone Sodium 2,000 mg/ (Dextrose) 70 mls @ 100 mls/hr IV NOW STA Stop: 10/22/18 13:34 Last Infusion: 10/22/18 13:50 Dose: 0 mls/hr Documented by: [id number] Admin: 10/22/18 13:04 Dose: 100 mls/hr Documented by: [id number] Medical Decision Making Differential Diagnosis Differentials include heart failure, bronchitis, pneumonia, exacerbation of COPD, anemia, electrolyte imbalance, renal failure, cardiac ischemia and [place] among others. Medical Records Attestation: I reviewed the patient's medical records. Home Medications Current Medication List: was personally reviewed by me Laboratory Data Attestation: I reviewed the patient's lab results. Result diagrams: 10/22/18 12:12 10/22/18 12:12 Lab Results 10/22/18 10/22/18 10/22/18 Range/Units 12:12 12:12 12:12 WBC 12.54 H (4.8-10.8) K/uL RBC 5.08 (4.7-6.1) M/uL Hgb 12.3 L (14.0-18.0) g/dL Hct 39.1 L (42-52) % MCV 77.0 L (80-100) fL MCH 24.2 L (25-34) pg MCHC 31.5 L (32-36) g/dL RDW Std Deviation 50.1 H (36.4-46.3) fL RDW Coeff of Don 17.8 H (11.5-14.5) % Plt Count 223 (130-400) K/uL MPV 10.3 (7.4-10.4) fL Immature Gran % (Auto) 1.3 % Neut % (Auto) 87.4 % Lymph % (Auto) 6.5 % [place] % (Auto) 4.3 % Eos % (Auto) 0.4 % Baso % (Auto) 0.1 % Immature Gran # (Auto) 0.16 H (0.00-0.02) K/uL Neut # (Auto) 10.96 H (1.4-6.5) K/uL Lymph # (Auto) 0.82 L (1.2-3.4) K/uL [place] # (Auto) 0.54 (0.11-0.59) K/uL Eos # (Auto) 0.05 (0-0.5) K/uL Baso # (Auto) 0.01 (0-0.2) K/uL PT 9.9 (9.0-12.0) Seconds INR 1.0 (0.9-1.1) APTT 25.4 (21.0-31.0) Seconds PTT Ratio 0.9 Sodium 137 (136-145) mmol/L Potassium 4.1 (3.5-5.1) mmol/L Chloride 99 (98-107) mmol/L Carbon Dioxide 32 (21-32) mmol/L Anion Gap 6.0 (3-11) BUN 20 H (7-18) mg/dl Creatinine 1.15 (0.6-1.4) mg/dl Est Cr Clr Drug Dosing 79.8 ml/min Est GFR ( Amer) 70.7 Est GFR (Non-Af Amer) 61.0 BUN/Creatinine Ratio 17.1 (10-20) Glucose 146 H (70-99) mg/dl Calcium 9.5 (8.5-10.1) mg/dl Magnesium 2.0 (1.8-2.4) mg/dl Total Bilirubin 0.4 (0.2-1) mg/dl AST 8 L (15-37) U/L ALT 21 (12-78) U/L Alkaline Phosphatase 90 (45-117) U/L Troponin I < 0.015 (0-0.045) ng/ml Total Protein 7.2 (6.4-8.2) gm/dl Albumin 2.9 L (3.4-5.0) gm/dl Globulin 4.3 H (2.5-4.0) gm/dl Albumin/Globulin Ratio 0.7 L (0.9-2) Imaging Data Radiologist's Impression: Radiology results as stated below per my review and the radiologist's interpretation: XR chest 1V portable CLINICAL HISTORY: sob COMPARISON STUDY: September 23, 2018 FINDINGS: The heart is mildly enlarged. There is aortic tortuosity/ectasia. There is been resolution of the previously identified right upper lung zone airspace opacities. There is no acute parenchymal consolidation.[ There is slight tracheal deviation to the right, finding unchanged the prior study IMPRESSION: 1. Interval resolution of the previously identified right upper lobe airspace opacities. This suggests a resolved pneumonia 2. Persistent aortic tortuosity/ectasia Electronically signed by: Dominic Darling M.D. 10/22/2018 12:08 PM ECG Data Attestation: I personally reviewed and interpreted this ECG as follows: Indication: SOB/dyspnea Rate (beats per minute): 74 Rhythm: normal sinus Findings: + nonspecific-ST abn; no ST elevation Blood Pressure Blood Pressure Findings: Normal blood pressure MDM Narrative There is a mild leukocytosis at 12.5, this is consistent with infection. Patient is anemic but he has a history of the same. No coagulopathy. No significant electrolyte abnormality or kidney failure. No liver enzyme jazmín vation. Chest film does not show pneumonia or CHF. No pneumothorax. Blood cultures are pending. EKG shows a sinus rhythm, no acute ischemia. Cardiac enzyme testing x1 is not consistent with acute cardiac injury. The patient was given a DuoNeb, he received IV ceftriaxone as antibiotic coverage. The patient presents with increasing weakness, some shortness of breath. He is requiring oxygen today, this is not typical. He does have a leukocytosis. He is immunocompromised on chronic prednisone. I do think a hospital stay is warranted. The patient has an acute bronchitis with a flare of COPD. I did speak with the patient and his family, I spoke with case management. The on-call hospitalist was consulted. Impression & Plan Shortness of breath, Weakness, Acute bronchitis, COPD exacerbation, Immunocompromised Discharge Plan Visit Data *Final* Discharge Date/Time: 10/22/18 14:21 Chief Complaint: Shortness of Breath/Dyspnea ED Provider: Raoul Cordero Discharge Problem: Shortness of breath, Weakness, Acute bronchitis, COPD exacerbation, Immu nocompromised Patient Disposition: Admitted As Inpatient Discharge Instructions Interventions: ED Discharge Assessment Last Done: 10/22/18 14:21 The isaibe's documentation has been prepared under my direction and personally reviewed by me in its entirety. I confirm that the note above accurately reflects all work, treatment, procedures, and medical decision making performed by me.
--- NOTE | 2018-10-22 14:15 | History & Physical Report ---
Date of Service October 22, 2018 Assessment & Plan (1) COPD with exacerbation: 77yo M with a PMHx of COPD, CKD3, T2DM, PMR, HTN, CVA, Sleep Apnea, Hypothyroidism who presents today via EMS to the ED for nonproductive cough and increase of SOB that started this morning. put on his oxygen (2L NC which he uses chronically overnight and PRN during the day) and gave duoneb treatment at home with no improvement. Recent admission 09/23-09/25/18 for PNA-- treated with Zosyn and Augmentin and fel t significant improvement after discharge home. In the ED pt received one dose of ceftriaxone and is on 2L NC with O2 sat of 93- 100%, BP 135/86, HR 71-81 bpm Mild leukocytosis to 12.54, Cr 1.15, BUN 20, blood cultures pending. CXR: Interval resolution of the previously identified right upper lobe airspace opacities. This suggests a resolved pneumonia Pt does not appear septic. -Likely COPD exacerbation -CT chest pending to r/o PE and to evaluate for further etiologies. -Continue IV Ceftriaxone, add Zithromax PO to cover for atypicals ; change antibiotic coverage if indicated by blood cultures -Prednisone 40 mg x 5 days (increase from chronic dose of 20 mg daily for PMR) -Duonebs, Flutter Valve, and Incentive Spirometry ordered (2) CKD (chronic kidney disease), stage III: Stable, Cr 1.15 and BUN 20 Continue to monitor (3) Diabetes mellitus, type II: Last A1C 7.8 in Apr 2018 Does not take any medication for this Diabetic and heart healthy diet Check BSG ACHS and readjust plan if needed (4) Polymyalgia rheumatica: Chronically takes prednisone 10 mg BID Prednisone 40 mg x 5 days for COPD exacerbation then return to 10 mg BID (5) HTN (hypertension): Stable Continue at home meds, adjust PRN (6) Hypothyroidism: TSH on 09/23/18 was 1.43 Continue on home meds (7) CVA (cerebral infarction): Chronic R sided weakness (8) Sleep apnea: Does not tolerate CPAP or BiPAP VTE Prophylaxis: Heparin q8hrs Pt follows with Dr. Meyers for routine care. Patient seen in coordination with Dr. Morales. See addendum for further details. History of Present Illness Chief Complaint: Cough, increase SOB Primary Care Provider: Chi Meyers MD 77yo M with a PMHx of COPD, CKD3, T2DM, PMR, HTN, CVA, Sleep Apnea, Hypothyroidism who presents today to the ED for cough and increase of SOB that started this morning. His notes that he has nursing care come to the home 11 hours daily - and 6 hours Saturday and Saturday. He is mostly immobile and goes from hospital bed to his chair and that is about it. He uses an electric wheelchair in addition to the help of his or nurses to transfer from bed to chair. Pt had a recent hospital admission for pneumonia 09/23-09/25/18 and was treated with Zosyn while admitted and discharged home on Augmentin. and pt note that he was doing significantly better overall after he was discharged home up until the last few days. Yesterday pt reports he started to feel more SOB but did not mention it at all to his or nurses. This morning when they got up noticed that pt had a nonproductive cough that "sounded wet" and felt more SOB so she put on his oxygen and gave him a Duoneb treatment. The visiting nurse called his around 10 AM as pt was feeling more SOB again so they decided to call an ambulance to bring him to the ED. Pt uses 2L of oxygen at home every single night and during the day PRN. He denies fevers, chills, close sick contacts, chest pain, dizziness, headache, edema. He also denies nasal congestion, ear pain, ST, abdominal pain, change in urination or bowel habits, new back pain, rashes. In the ED pt received one dose of ceftriaxone and is on 2L NC with O2 sat of 93- 100%. Mild leukocytosis to 12.54, Cr 1.15, BUN 20, blood cultures pending. CXR: Interval resolution of the previously identified right upper lobe airspace opacities. This suggests a resolved pneumonia Pt wishes to be FULL CODE but does not want any senior care life support measures. Allergies Allergy/AdvReac Type Severity Reaction Status Date / Time Iodinated Contrast- Oral and Allergy Intermediate HIVES Verified 10/22/18 13:15 IV Dye Home Medications Home Medications Medication Instructions Recorded Confirmed Type cholecalciferol (vitamin D3) 2,000 unit PO QAM #0 06/05/16 10/22/18 History duloxetine 60 mg PO QAM #0 06/05/16 10/22/18 History aspirin [Ecotrin Low Strength] 81 mg PO QAM #0 07/03/16 10/22/18 History omeprazole 20 mg PO QAM #0 07/03/16 10/22/18 History prednisone 10 mg PO BID #0 tab 08/29/16 10/22/18 History donepezil 5 mg PO HS #0 10/11/16 10/22/18 History levothyroxine 25 mcg PO MOWEFR@0900 #0 10/11/16 10/22/18 History Lactobacillus acidophilus 1 cap PO BID #0 01/08/17 10/22/18 History cyanocobalamin (vitamin B-12) 1,000 mcg PO QAM #0 01/08/17 10/22/18 History gabapentin 600 mg PO TID #0 01/08/17 10/22/18 History levothyroxine 50 mcg PO SUTUTHSA@0900 #0 01/08/17 10/22/18 History Krill Oil ([place] 3 and 6) 1 cap PO QAM #0 01/01/18 10/22/18 History celecoxib 200 mg PO QAM #0 cap 01/01/18 10/22/18 History methadone 30 mg PO BID #0 01/01/18 10/22/18 History Combivent Respimat 1 puff INHALATION QID PRN 09/23/18 10/22/18 History fluticasone propionate 1 spray INTRANASAL DAILY PRN 09/23/18 10/22/18 History losartan-hydrochlorothiazide 1 tab PO QAM 09/23/18 10/22/18 History amlodipine 5 mg PO DAILY PRN 10/22/18 10/22/18 History latanoprost 1 drp OPHTHALMIC (EYE) HS 10/22/18 10/22/18 History potassium chloride 20 meq PO BID 10/22/18 10/22/18 History tamsulosin 0.4 mg PO DAILY 10/22/18 10/22/18 History Past Med/Surg History Medical History Nocturnal hypoxemia (Chronic) CKD (chronic kidney disease), stage III (Chronic) Diabetes mellitus, type II (Chronic) Polymyalgia rheumatica (Chronic) Atrial tachycardia (Chronic) HTN (hypertension) (Chronic) Fibromyalgia (Chronic) CVA (cerebral infarction) (Chronic) residual R sided weakness COPD (chronic obstructive pulmonary disease) (Chronic) Sleep apnea (Chronic) CPAP/BiPAP intolerant Hypothyroidism (Chronic) PMR (polymyalgia rheumatica) (Chronic) Chronic pain syndrome (Chronic) FELICITA (iron deficiency anemia) (Chronic) Monoclonal gammopathy (Chronic) Surgical History History of cholecystectomy (Chronic) History of total left knee replacement (Chronic) S/P small bowel resection (Chronic) H/O hernia repair (Chronic) Family History Other No pertinent family history Social History Preferred Language: Cymro Communication Ability: Effective Visual Impairment: No Limitations Hearing Ability: Normal Beliefs That Will Affect Care: None marital status: Current Living Situation: Spouse Current Living Situation Comment: home with home health Feels Safe at Home: Yes Smoking Status: Former smoker Hx Alcohol Use: No Hx Substance Use: No Review of Systems Review of Systems: All systems reviewed & are unremarkable except as noted in HPI & below Physical Exam Physical Exam: GENERAL: alert, morbidly obese, no distress, well nourished and well developed HEAD: Normocephalic, atraumatic EYES: PERRL, EOMI, Conjunctiva are pink and non-injected, sclera clear EARS: External ears normal, Canals clear, TM's clear with good cone of light NOSE: no purulent discharge, no sinus tenderness, no mucosal erythema or edema OROPHARYNX: no exudate, no erythema, lips, buccal mucosa, and tongue normal and mucous membranes are moist NECK: supple, no adenopathy HEART: regular rate & rhythm, no murmurs and no gallops, no edema LUNGS: no rales or rhonchi, diminished bibasilar, minimal expiratory wheezing upper lung jha ABDOMEN: abdomen soft, non-tender, normal bowel sounds, no masses or or ganomegaly, no rebound or guarding, no CVA tenderness, no bladder distention identified and no bruits SKIN: skin color, texture, turgor are normal, no rashes or significant lesions NEURO: alert & oriented x 3 with fluent speech Results & Data Vital Signs (Past 12 Hours) Vital Signs Temp Pulse Pulse Resp BP Pulse Ox 10/22/18 12:03 71 18 93 10/22/18 10:59 36.4 C L 81 28 H 140/70 97 Laboratory Results Short CBC 10/22/18 Range/Units 12:12 WBC 12.54 H (4.8-10.8) K/uL Hgb 12.3 L (14.0-18.0) g/dL Hct 39.1 L (42-52) % Plt Count 223 (130-400) K/uL BMP 10/22/18 12:12 Sodium 137 Potassium 4.1 Chloride 99 Carbon Dioxide 32 BUN 20 H Creatinine 1.15 Glucose 146 H Calcium 9.5 Cardiac Enzymes 10/22/18 Range/Units 12:12 Troponin I < 0.015 (0-0.045) ng/ml Liver Function 10/22/18 Range/Units 12:12 Total Bilirubin 0.4 (0.2-1) mg/dl AST 8 L (15-37) U/L ALT 21 (12-78) U/L Alkaline Phosphatase 90 (45-117) U/L Albumin 2.9 L (3.4-5.0) gm/dl Diagnostic Findings CXR: IMPRESSION: 1. Interval resolution of the previously identified right upper lobe airspace opacities. This suggests a resolved pneumonia 2. Persistent aortic tortuosity/ectasia ECG Rate (beats per minute): 74 Rhythm: normal sinus Supervising Physician Co-Signing Physician Notes Pt was seen and examined. Agreed with Juan Pablo PAC- exam, assessment and plan. 77yo M with a PMHx of COPD, CKD3, T2DM, PMR, HTN, CVA, Sleep Apnea, Hypothyroidism, was recently discharged for pneumonia on 09/25 presents to the ED for worsening SOB associated with dry cough. As per , pt has been feeling very weak lately. denies any chest pain, palpitation and SOB. on admission showed showed no resolution of previous identified upper lobe airspace opacities. Received Rocephin in the ER. Due to prolong QTC, will change antibiotic to doxycycline. Will increase prednisone to 40mg daily. Doubt for PE since pt showed no tachycardia, and saturated well on 2L NC. Unable to get CT chest with PE protocol due to allergies with contrast. If pt becomes hypoxia, will consider to get a CTA chest to r/o PE. We will give IV benadryl and steroid if consider to get the CTA chest if no improves. Continue monitor closely. Continue neb treatment and oxygen supplement. MD Andrew
[2018-10-22] MEDS ORDERED: AMLODIPINE BESYLATE 5 MG TAB PO PRN (15:02)
[2018-10-22] MEDS ORDERED: ACETAMINOPHEN 325 MG TAB PO PRN (15:02)
[2018-10-22] MEDS ORDERED: ONDANSETRON INJ 2 MG/ML 2 ML VIAL IV PRN (15:02)
[2018-10-22] MEDS ORDERED: FLUTICASONE PROPIONATE NA SPR 16 GM BTL NAE PRN (15:02)
[2018-10-22] MEDS: ALBUT/IPRATROP 3MG/0.5MG NEB 3 ML VIAL NEB SCH ×2 (15:25→18:51)
[2018-10-22] MEDS ORDERED: predniSONE 10 MG TABLET PO ONE (15:30)
[2018-10-22] MEDS ORDERED: AZITHROMYCIN 250 MG TAB PO ONE (15:30)
[2018-10-22] MEDS: DOXYCYCLINE HYCLATE 100 MG CAP PO SCH ×2 (16:13→20:23)
[2018-10-22] MEDS: GABAPENTIN 600 MG TAB PO SCH ×2 (16:15→20:23)
[2018-10-22] MEDS: HEPARIN SOD 5,000 UNIT/0.5 ML VIAL SQ SCH ×2 (16:15→21:16)
[2018-10-22] MEDS: LATANOPROST 0.005% OP SOLN 2.5 ML BTL OP SCH (20:20)
[2018-10-22] MEDS: DONEPEZIL HCL 5 MG TAB PO SCH (20:21)
[2018-10-22] MEDS: LACTOBACILLUS ACIDOPHILUS (FLORANEX) TAB PO SCH (20:21)
[2018-10-22] MEDS: POTASSIUM CHLORIDE 20 MEQ TABCR PO SCH (20:21)
[2018-10-22] MEDS: MICONAZOLE NITRATE POWDER 43 GM EXT PRN (20:46)
[2018-10-22] MEDS: METHADONE HCL 10 MG TAB PO SCH (20:46)
[2018-10-23] MEDS: MICONAZOLE NITRATE POWDER 43 GM EXT PRN (06:10)
[2018-10-23] MEDS: HEPARIN SOD 5,000 UNIT/0.5 ML VIAL SQ SCH ×3 (06:19→20:41)
[2018-10-23] MEDS ORDERED: LEVOTHYROXINE SODIUM 50 MCG TABLET PO SCH (06:30)
[2018-10-23] MEDS: ALBUT/IPRATROP 3MG/0.5MG NEB 3 ML VIAL NEB SCH ×2 (07:04→11:14)
[2018-10-23 07:06] LABS: Hematocrit (blood only) 37.1 % (42-52); Hemoglobin 11.7 g/dL (14.0-18.0); Mean Corpuscular Hgb Conc 31.5 g/dL (32-36); Mean Corpuscular Volume 76.8 fL (80-100); Mean Platelet Volume 10.3 fL (7.4-10.4); Platelet Count 223 K/uL (130-400); RDW Coefficient of Variation 17.6 % (11.5-14.5); RDW Standard Deviation 49.6 fL (36.4-46.3); Red Blood Count 4.83 M/uL (4.7-6.1); White Blood Count 13.89 K/uL (4.8-10.8)
[2018-10-23 07:20] LABS: BUN Creatinine Ratio 19.6 (10-20); Calcium 9.6 mg/dl (8.5-10.1); Creatinine Clr Calc Pharmacy 82.7 ml/min; Est GFR (African American) 73.8; Est GFR (Non-African American) 63.7; Potassium 4.1 mmol/L (3.5-5.1)
[2018-10-23] MEDS: METHADONE HCL 10 MG TAB PO SCH ×2 (07:52→20:38)
[2018-10-23] MEDS: DULOXETINE HCL 60 MG CAP PO SCH (07:53)
[2018-10-23] MEDS: ASPIRIN 81 MG ECTAB PO SCH (07:54)
[2018-10-23] MEDS: CYANOCOBALAMIN 500 MCG TABLET (VITAMIN B-12) PO SCH (07:54)
[2018-10-23] MEDS: GABAPENTIN 600 MG TAB PO SCH ×3 (07:54→20:39)
[2018-10-23] MEDS: DOXYCYCLINE HYCLATE 100 MG CAP PO SCH (07:55)
[2018-10-23] MEDS: CeleBREX 200 MG CAP PO SCH (07:55)
[2018-10-23] MEDS: CHOLECALCIFEROL 1,000 UNITS TAB PO SCH (07:56)
[2018-10-23] MEDS: LOSARTAN/HCTZ 50/12.5MG TAB PO SCH (07:56)
[2018-10-23] MEDS: POTASSIUM CHLORIDE 20 MEQ TABCR PO SCH ×2 (07:57→20:41)
[2018-10-23] MEDS: PANTOprazole 40 MG TAB PO SCH (07:57)
[2018-10-23] MEDS: TAMSULOSIN HCL 0.4 MG CAP PO SCH (07:57)
[2018-10-23] MEDS: LACTOBACILLUS ACIDOPHILUS (FLORANEX) TAB PO SCH ×2 (07:58→20:39)
[2018-10-23] MEDS ORDERED: [UNRECOGNIZED DRUG - OTHER] PO SCH (09:00)
[2018-10-23] MEDS ORDERED: KRILL OM3 DHA EPA OM6 LIP ASTX PO SCH (09:00)
[2018-10-23] MEDS: predniSONE 20 MG TAB PO SCH (12:15)
--- NOTE | 2018-10-23 12:56 | Hospitalist Progress Note ---
Date of Service October 23, 2018 Assessment & Plan (1) COPD with exacerbation: 77yo M with a PMHx of COPD, CKD3, T2DM, PMR, HTN, CVA, Sleep Apnea, Hypothyroidism who presents today via EMS to the ED for nonproductive cough and increase of SOB that started this morning. put on his oxygen (2L NC which he uses chronically overnight and PRN during the day) and gave duoneb treatment at home with no improvement. Recent admission 09/23-09/25/18 for PNA --> treated with Zosyn and Augmentin and f elt significant improvement after discharge home. -Likely Mild COPD exacerbation -S/P IV Rocephin/Azithromycin in ED. No indication for antibiotics as possible mild COPD exacerbation and chest x-ray showing resolving pneumonia. Discontinue Doxycycline. -Prednisone 40 mg x 5 days (increased from chronic dose of 20 mg daily for PMR) - Day 2 -Duonebs QID -Flutter Valve, and Incentive Spirometry ordered (2) CKD (chronic kidney disease), stage III: Stable, Cr 1.15 and BUN 20 -Monitor (3) Diabetes mellitus, type II: Last A1C 7.8 in Apr 2018 -Does not take any medication for this -Diabetic and heart healthy diet (4) Polymyalgia rheumatica: Chronically takes prednisone 10 mg BID Prednisone 40 mg x 5 days for COPD exacerbation then return to 10 mg BID (5) HTN (hypertension): Stable Continue at home meds, adjust PRN (6) Hypothyroidism: TSH on 09/23/18 was 1.43 Continue on home meds (7) CVA (cerebral infarction): Chronic R sided weakness (8) Sleep apnea: Does not tolerate CPAP or BiPAP VTE Prophylaxis: Heparin q8hrs Disposition Patient is eager to be discharged home. Likely discharge in AM if continues to be stable Pt follows with Dr. Meyers for routine care. Subjective Patient is doing well. Denies any worsening of shortness of breath, cough, sputum production. Denies any chest tightness or pain. No fever, chills. Eager to be discharged Not requiring oxygen, saturating 94% on room air On oxygen 2 L at night as at home Physical Exam Physical Exam: GENERAL- AAOX3, No acute distress, obese, chronically ill looking + HEAD- Atraumatic, Normocephalic LUNGS- Air entry bilaterally decreased, no wheezing, chest tightness + HEART- Regular rate and rhythm. No murmurs ABDOMEN- Soft, non tender, non distended, Bowel sounds heard. EXTREMITIES- Trace edema Results & Data Vital Signs (Past 12 Hours) Vital Signs Temp Pulse Resp BP Pulse Ox 10/23/18 11:17 86 18 94 10/23/18 07:10 67 18 99 10/23/18 07:00 36.5 C 80 18 167/89 H 90
[2018-10-23] MEDS: cefTRIAXone SODIUM 2,000 MG in DEXTROSE 5% 50 ML IV SCH (13:39)
[2018-10-23] MEDS ORDERED: ALBUT/IPRATROP 3MG/0.5MG NEB 3 ML VIAL NEB PRN (15:12)
[2018-10-23] MEDS: DONEPEZIL HCL 5 MG TAB PO SCH (20:39)
[2018-10-23] MEDS: IPRATROPIUM BROMIDE/ALBUTEROL respimat INH INH SCH (20:40)
[2018-10-23] MEDS: LATANOPROST 0.005% OP SOLN 2.5 ML BTL OP SCH (20:41)
[2018-10-24] MEDS: HEPARIN SOD 5,000 UNIT/0.5 ML VIAL SQ SCH ×2 (05:44→13:03)
[2018-10-24] MEDS ORDERED: LEVOTHYROXINE SODIUM 25 MCG TABLET PO SCH (06:30)
[2018-10-24 07:23] LABS: Hematocrit (blood only) 38.6 % (42-52); Mean Corpuscular Hgb Conc 31.1 g/dL (32-36); Mean Corpuscular Volume 77.4 fL (80-100); Platelet Count 213 K/uL (130-400); RDW Coefficient of Variation 17.7 % (11.5-14.5); RDW Standard Deviation 50.2 fL (36.4-46.3); Red Blood Count 4.99 M/uL (4.7-6.1); White Blood Count 11.75 K/uL (4.8-10.8)
[2018-10-24 07:27] VITALS: BP 165/94; TEMP 98.2; O2SAT 95
[2018-10-24 08:10] LABS: BUN Creatinine Ratio 20.9 (10-20); Calcium 9.7 mg/dl (8.5-10.1); Creatinine Clr Calc Pharmacy 81.2 ml/min; Est GFR (African American) 72.3; Est GFR (Non-African American) 62.4; Potassium 3.9 mmol/L (3.5-5.1)
[2018-10-24] MEDS: METHADONE HCL 10 MG TAB PO SCH (08:18)
[2018-10-24] MEDS: CHOLECALCIFEROL 1,000 UNITS TAB PO SCH (08:19)
[2018-10-24] MEDS: GABAPENTIN 600 MG TAB PO SCH ×2 (08:19→13:03)
[2018-10-24] MEDS: predniSONE 20 MG TAB PO SCH (08:20)
[2018-10-24] MEDS: ASPIRIN 81 MG ECTAB PO SCH (08:20)
[2018-10-24] MEDS: PANTOprazole 40 MG TAB PO SCH (08:20)
[2018-10-24] MEDS: TAMSULOSIN HCL 0.4 MG CAP PO SCH (08:21)
[2018-10-24] MEDS: LOSARTAN/HCTZ 50/12.5MG TAB PO SCH (08:21)
[2018-10-24] MEDS: LACTOBACILLUS ACIDOPHILUS (FLORANEX) TAB PO SCH (08:21)
[2018-10-24] MEDS: POTASSIUM CHLORIDE 20 MEQ TABCR PO SCH (08:22)
[2018-10-24] MEDS: CeleBREX 200 MG CAP PO SCH (08:22)
[2018-10-24] MEDS: CYANOCOBALAMIN 500 MCG TABLET (VITAMIN B-12) PO SCH (08:22)
[2018-10-24] MEDS: IPRATROPIUM BROMIDE/ALBUTEROL respimat INH INH SCH ×2 (08:23→13:04)
[2018-10-24] MEDS: DULOXETINE HCL 60 MG CAP PO SCH (09:05)
--- NOTE | 2018-10-24 10:19 | Hospitalist Progress Note ---
Date of Service October 24, 2018 Assessment & Plan (1) COPD with exacerbation: 77yo M with a PMHx of COPD, CKD3, T2DM, PMR, HTN, CVA, Sleep Apnea, Hypothyroidism who presents today via EMS to the ED for nonproductive cough and increase of SOB that started this morning. put on his oxygen (2L NC which he uses chronically overnight and PRN during the day) and gave duoneb treatment at home with no improvement. Recent admission 09/23-09/25/18 for PNA --> treated with Zosyn and Augmentin and f elt significant improvement after discharge home. -Likely Mild COPD exacerbation -S/P IV Rocephin/Azithromycin in ED. No indication for antibiotics as possible mild COPD exacerbation and chest x-ray showing resolving pneumonia,blood cx x 2 . Discontinue Doxycycline. -Prednisone 40 mg x 5 days (increased from chronic dose of 20 mg daily for PMR) - Day 3 -Duonebs QID -Flutter Valve, and Incentive Spirometry ordered (2) CKD (chronic kidney disease), stage III: Stable, Cr 1.15 and BUN 20 -Monitor (3) Diabetes mellitus, type II: Last A1C 7.8 in Apr 2018 -Does not take any medication for this -Diabetic and heart healthy diet (4) Polymyalgia rheumatica: Chronically takes prednisone 10 mg BID Prednisone 40 mg x 5 days for COPD exacerbation then return to 10 mg BID (5) HTN (hypertension): Stable Continue at home meds, adjust PRN (6) Hypothyroidism: TSH on 09/23/18 was 1.43 Continue on home meds (7) CVA (cerebral infarction): Chronic R sided weakness (8) Sleep apnea: Does not tolerate CPAP or BiPAP VTE Prophylaxis: Heparin q8hrs Disposition Patient is eager to be discharged home PT/OT- cleared for discharge to home. OK to discharge home today Pt follows with Dr. Meyers for routine care. Subjective Patient is doing well. Denies any worsening of shortness of breath, cough, sputum production. Denies any chest tightness or pain. No fever, chills. Eager to be discharged. Not requiring oxygen, saturating 94% on room air On oxygen 2 L at night as at home Physical Exam Physical Exam: GENERAL- AAOX3, No acute distress, obese, chronically ill looking + HEAD- Atraumatic, Normocephalic LUNGS- Air entry bilaterally decreased, no wheezing, chest tightness + HEART- Regular rate and rhythm. No murmurs ABDOMEN- Soft, non tender, non distended, Bowel sounds heard. EXTREMITIES- Trace edema Results & Data Vital Signs (Past 12 Hours) Vital Signs Temp Pulse Resp BP Pulse Ox 10/24/18 07:27 36.8 C 70 20 165/94 H 95 10/23/18 22:47 36.5 C 72 18 167/93 H 93
--- NOTE | 2018-10-24 10:30 | Discharge Summary ---
Date of Service October 24, 2018 Admission HPI Per Admitting Provider 77yo M with a PMHx of COPD, CKD3, T2DM, PMR, HTN, CVA, Sleep Apnea, Hypothyroidism who presents today to the ED for cough and increase of SOB that started this morning. His notes that he has nursing care come to the home 11 hours daily - and 6 hours Saturday and Saturday. He is mostly immobile and goes from hospital bed to his chair and that is about it. He uses an electric wheelchair in addition to the help of his or nurses to transfer from bed to chair. Pt had a recent hospital admission for pneumonia 09/23-09/25/18 and was treated with Zosyn while admitted and discharged home on Augmentin. and pt note that he was doing significantly better overall after he was discharged home up until the last few days. Yesterday pt reports he started to feel more SOB but did not mention it at all to his or nurses. This morning when they got up noticed that pt had a nonproductive cough that "sounded wet" and felt more SOB so she put on his oxygen and gave him a Duoneb treatment. The visiting nurse called his around 10 AM as pt was feeling more SOB again so they decided to call an ambulance to bring him to the ED. Pt uses 2L of oxygen at home every single night and during the day PRN. He denies fevers, chills, close sick contacts, chest pain, dizziness, headache, edema. He also denies nasal congestion, ear pain, ST, abdominal pain, change in urination or bowel habits, new back pain, rashes. In the ED pt received one dose of ceftriaxone and is on 2L NC with O2 sat of 93- 100%. Mild leukocytosis to 12.54, Cr 1.15, BUN 20, blood cultures pending. CXR: Interval resolution of the previously identified right upper lobe airspace opacities. This suggests a resolved pneumonia Pt wishes to be FULL CODE but does not want any senior living life support measures. Principal Diagnosis 1. Possible mild COPD exacerbation Secondary diagnoses on discharge 1. CKD stage III 2. Diabetes mellitus type 2 3. Polymyalgia Rheumatica 4. HTN 5. Hypothyroidism 6. Hx of CVA 7. DEMETRIS Discharge Exam GENERAL- AAOX3, No acute distress, obese, chronically ill looking + HEAD- Atraumatic, Normocephalic LUNGS- Air entry bilaterally decreased, no wheezing, chest tightness + HEART- Regular rate and rhythm. No murmurs ABDOMEN- Soft, non tender, non distended, Bowel sounds heard. EXTREMITIES- Trace edema Discharge Data Allergies Allergy/AdvReac Type Severity Reaction Status Date / Time Iodinated Contrast- Oral and Allergy Intermediate HIVES Verified 10/22/18 13:15 IV Dye Consultations 10/22/18 13:06 ED Decision to Admit Stat 10/22/18 15:02 Consult Case Management - Discharge Planning Routine Hospital Course (1) COPD with exacerbation: 77yo M with a PMHx of COPD, CKD3, T2DM, PMR, HTN, CVA, Sleep Apnea, Hypothyroidism who presents today via EMS to the ED for nonproductive cough and increase of SOB that started this morning. put on his oxygen (2L NC which he uses chronically overnight and PRN during the day) and gave duoneb treatment at home with no improvement. Recent admission 09/23-09/25/18 for PNA --> treated with Zosyn and Augmentin and felt significant improvement after discharge home. -Likely Mild COPD exacerbation -S/P IV Rocephin/Azithromycin in ED. No indication for antibiotics as possible mild COPD exacerbation and chest x-ray showing resolving pneumonia,blood cx x 2 . Discontinue Doxycycline. -Prednisone 40 mg x 5 days (increased from chronic dose of 20 mg daily for PMR) - Day 3/5 -Duonebs QID -Flutter Valve, and Incentive Spirometry ordered (2) CKD (chronic kidney disease), stage III: Stable, Cr 1.15 and BUN 20 -Monitor (3) Diabetes mellitus, type II: Last A1C 7.8 in Apr 2018 -Does not take any medication for this -Diabetic and heart healthy diet (4) Polymyalgia rheumatica: Chronically takes prednisone 10 mg BID Prednisone 40 mg x 5 days for COPD exacerbation then return to 10 mg BID (5) HTN (hypertension): Stable Continue at home meds, adjust PRN (6) Hypothyroidism: TSH on 09/23/18 was 1.43 Continue on home meds (7) CVA (cerebral infarction): Chronic R sided weakness (8) Sleep apnea: Does not tolerate CPAP or BiPAP VTE Prophylaxis: Heparin q8hrs Disposition Patient is eager to be discharged home PT/OT- cleared for discharge to home. OK to discharge home today Pt follows with Dr. Meyers for routine care. Total Time Total Time Spent Total Time Spent (In Minutes): 38 minutes Discharge Plan Discharge Items Patient Disposition: Home - Home Health Services Reason For Visit: UNKNOWN Discharge Diagnosis: Possible mild COPD exacerbation Discharge Goals: Decrease discomfort Activity: Resume your previous activity Non-emergency contact: Primary Care Provider Call non-emergency contact if: your symptoms worsen Follow-up/Referrals: Chi Meyers MD [Primary Care Provider] - 10/27/18 11:20 am Diet: Carb Consistent or DM2, Low Fat and Low Sodium (2gm) Addtl Provider Instructions: MEDICATION CHANGES Increase prednisone to 20 mg twice a day x 3 more days and than change to routine home dose of 10 mg twice a day Prescriptions: Continued cholecalciferol (vitamin D3) 2,000 unit Tablet 2,000 unit PO QAM Qty: 0 RF: 0 duloxetine 60 mg Capsule,Delayed Release(Dr/Ec) 60 mg PO QAM Qty: 0 RF: 0 aspirin [Ecotrin Low Strength] 81 mg Tablet,Delayed Release (Dr/Ec) 81 mg PO QAM Qty: 0 RF: 0 omeprazole 20 mg Capsule,Delayed Release(Dr/Ec) 20 mg PO QAM Qty: 0 RF: 0 prednisone 10 mg Tablet 10 mg PO BID Qty: 0 RF: 0 donepezil 5 mg Tablet 5 mg PO HS Qty: 0 RF: 0 levothyroxine 25 mcg Tablet 25 mcg PO MOWEFR@0900 Qty: 0 RF: 0 gabapentin 600 mg Tablet 600 mg PO TID Qty: 0 RF: 0 cyanocobalamin (vitamin B-12) 1,000 mcg Tablet 1,000 mcg PO QAM Qty: 0 RF: 0 levothyroxine 50 mcg Tablet 50 mcg PO SUTUTHSA@0900 Qty: 0 RF: 0 Lactobacillus acidophilus Capsule 1 cap PO BID Qty: 0 RF: 0 Krill Oil ([place] 3 and 6) 1000-130(40-80) mg Capsule 1 cap PO QAM Qty: 0 RF: 0 methadone 10 mg Tablet 30 mg PO BID Qty: 0 RF: 0 celecoxib 200 mg Capsule 200 mg PO QAM Qty: 0 RF: 0 amlodipine 5 mg tablet 5 mg PO DAILY PRN (Reason: SBP > 160) RF: 0 potassium chloride 20 mEq tablet,ER particles/crystals 20 meq PO BID RF: 0 tamsulosin 0.4 mg capsule 0.4 mg PO DAILY RF: 0 latanoprost 0.005 % drops 1 drp ophthalmic (eye) HS RF: 0 fluticasone propionate 50 mcg/actuation [place],Suspension 1 spray INTRANASAL DAILY PRN (Reason: Congestion) RF: 0 losartan-hydrochlorothiazide 100-12.5 mg Tablet 1 tab PO QAM RF: 0 Combivent Respimat 20-100 mcg/actuation [place] 1 puff INHALATION QID PRN (Reason: Shortness Of Breath) RF: 0 Stand-Alone Forms: [facility]/Other Patient Handouts: Hyperglycemia, Hypoglycemia, Blood Sugar Check Discharge Orders: Discharge Order (Routine); Ordered 10/24/18 Ordered By: Cami Williamson Admission Data Admit Date/Time: 10/22/18 13:52 Attending Provider: Cami Williamson Admit Provider: Pablo Morales Primary Care Provider: Chi Meyers Other Providers: Pablo Morales Service: Medical Other Interventions: Discharge Summary Assessment (RN) Last Done: 10/24/18 10:33 Pending Studies at Discharge: No
[2018-10-24 10:35] VITALS: PULSE 71
[2018-10-24] MEDS: cefTRIAXone SODIUM 2,000 MG in DEXTROSE 5% 50 ML IV SCH (13:02)
== END 2018-10-24 15:54 | disposition home health service (06) ==
LOC: ED 10:52 → 4E 10:52

== ENCOUNTER 2019-01-14 18:29 | Inpatient (IN) ==
[2019-01-14] MEDS ORDERED: methylPREDNISolone 125 MG/2 ML VIAL IV STA (18:47)
[2019-01-14] MEDS ORDERED: MAGNESIUM SULFATE / D5W 1 GM/100 ML BAG IV ONE ×3 (18:47→23:37)
[2019-01-14] MEDS ORDERED: ALBUT/IPRATROP 3MG/0.5MG NEB 3 ML VIAL NEB ONE (18:47)
[2019-01-14 19:11] LABS: Basophils # (auto) 0.01 K/uL (0-0.2); Basophils % (auto) 0.1 %; Eosinophils # (auto) 0.08 K/uL (0-0.5); Eosinophils % (auto) 0.5 %; Hematocrit (blood only) 39.4 % (42-52); Hemoglobin 12.5 g/dL (14.0-18.0); Immature Granulocytes # (auto) 0.13 K/uL (0.00-0.02); Immature Granulocytes % (auto) 0.8 %; Lymphocytes # (auto) 1.47 K/uL (1.2-3.4); Lymphocytes % (auto) 9.5 %; Mean Corpuscular Hgb Conc 31.7 g/dL (32-36); Mean Corpuscular Volume 76.8 fL (80-100); Mean Platelet Volume 10.4 fL (7.4-10.4); Monocytes # (auto) 0.72 K/uL (0.11-0.59); Monocytes % (auto) 4.7 %; Neutrophils # (auto) 13.01 K/uL (1.4-6.5); Neutrophils % (auto) 84.4 %; Platelet Count 223 K/uL (130-400); RDW Coefficient of Variation 18.4 % (11.5-14.5); RDW Standard Deviation 51.7 fL (36.4-46.3); Red Blood Count 5.13 M/uL (4.7-6.1); White Blood Count 15.42 K/uL (4.8-10.8)
--- NOTE | 2019-01-14 19:19 | XRay Report ---
XR chest 1V portable CLINICAL HISTORY: 78 years-old Male presenting with sob. TECHNIQUE: Portable upright AP view of the chest was obtained. COMPARISON: 10/29/2018. FINDINGS: The patient is slightly LATVIAN rotated. Allowing for this, prominent central tortuosity of the thoracic aorta, which demonstrates atherosclerosis. Cardiac silhouette mildly enlarged. Bronchial wall cuffing is suggested in the right perihilar region, where there is added density. No other focal opacity. No large effusion or pneumothorax. Degenerative changes of the thoracic spine. Upper abdomen normal. IMPRESSION: 1. Added density in the right perihilar region could relate to bronchial wall thickening or peribron chial vascular infiltrate. This is not typical for pneumonia or edema. The appearance may in part rel ate to patient rotation and portable view. Consider PA and lateral views for better assessment. Electronically signed by: Noam Araya M.D. 01/14/2019 7:17 PM
[2019-01-14 19:25] LABS: iSTAT Arterial Blood Gas HCO3 24 meg/L (19-24); iSTAT Arterial Blood Gas pCO2 39 mmHg (35-46); iSTAT Arterial Blood Gas pH 7.39 (7.35-7.45); iSTAT Carbon Dioxide 25 mEq/l (24-31)
[2019-01-14] MEDS ORDERED: NALOXONE HCL 0.4 MG/1 ML VIAL/CARP IV STA (19:31)
[2019-01-14 19:43] LABS: Alanine Aminotransferase 17 U/L (12-78); Albumin Globulin Ratio 0.6 (0.9-2); Albumin Level 2.7 gm/dl (3.4-5.0); Alkaline Phosphatase 76 U/L (45-117); Aspartate Aminotransferase 13 U/L (15-37); BUN Creatinine Ratio 16.8 (10-20); Bilirubin,Total 0.5 mg/dl (0.2-1); Blood Urea Nitrogen 20 mg/dl (7-18); Calcium 9.5 mg/dl (8.5-10.1); Carbon Dioxide 27 mmol/L (21-32); Chloride 102 mmol/L (98-107); Creatinine Clr Calc Pharmacy 76.9 ml/min; Est GFR (African American) 68.8; Est GFR (Non-African American) 59.4; Globulin 4.4 gm/dl (2.5-4.0); Glucose 114 mg/dl (70-99); Magnesium 1.6 mg/dl (1.8-2.4); NT Pro B Type Natriuretic Pept 80 pg/ml (0-1800); Potassium 4.2 mmol/L (3.5-5.1); Sodium 137 mmol/L (136-145); Total Protein 7.1 gm/dl (6.4-8.2); Troponin I < 0.015 ng/ml (0-0.045)
[2019-01-14] MEDS ORDERED: LACTATED RINGER'S 1,000 ML IV ONE (20:55)
[2019-01-14] MEDS ORDERED: LEVOFLOXACIN/D5W 750 MG/150 ML BAG IV SCH (21:00)
--- NOTE | 2019-01-14 21:35 | History & Physical Report ---
Date of Service January 14, 2019 Assessment & Plan (1) Acute hypoxemic respiratory failure: Secondary to COPD exacerbation secondary to possible aspiration pneumonitis Possible sepsis hypertension, stable chronic pain/fibromyalgia on methadone, some signs of opioid toxicity given episodic myoclonic jerks polymyalgia rheumatica on chronic steroid therapy history of CVA as per records, chronic anemia, hemoglobin at baseline DM 2 insulin requiring, reasonable control as of recent outpatient hemoglobin A1c of 7.7 last September 2018 hx DEMETRIS (CPAP intolerance) past tobacco abuse Medical telemetry Supplemental O2 Cultures, check lactic acid IV fluid IV Unasyn, aspiration precautions, follow-up swallow eval Appropriate to hold RTC home narcotics, neuropsychotropics until mentation improved (Resume above home meds with hold for sedation/confusion parameters once patient more awake.) Nebs, increase daily prednisone dose to 40 mg daily for next 4 days for presumptive COPD exacerbation May need pulmonary consultation if without improvement RE COPD exacerbation basal insulin, ISS BG goal 1 40-1 80, carb count coverage DVT prophylaxis. Lovenox subcu Full code as per patient . Patient's requesting updates from providers. Ms. Kylie Kong, contact #[phone] 05/13 [phone]. History of Present Illness Chief Complaint: Shortness of breath Primary Care Provider: Chi Meyers MD History obtained from patient, family, and records. Limited history from patient secondary to disorientation. Medical history is significant for COPD, past tobacco abuse, hypertension, chronic pain/fibromyalgia on methadone, polymyalgia rheumatica on chronic steroid therapy, history of CVA as per records, chronic anemia (baseline hemoglobin of 11-12), DM 2 insulin requiring, mood disorder, DEMETRIS (CPAP intolerance) Recent confinement October 2018 for COPD exacerbation. Today increasing shortness of breath and shakiness noted at home. Increasing O2 requirement as per . Patient denies chest pain. Usual aches. No unusual cough symptoms although patient noted to be coughing with meals/water intake if not careful as per patient . At the ER, patient received Solu-Medrol, nebs, and Levaquin for possible COPD exacerbation. 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, lives with Allergies Allergy/AdvReac Type Severity Reaction Status Date / Time Iodinated Contrast- Oral and Allergy Intermediate HIVES Verified 10/22/18 13:15 IV Dye lactose AdvReac Gastrointestinal Unverified 01/14/19 21:00 Upset Home Medications Home Medications Medication Instructions Recorded Confirmed Type cholecalciferol (vitamin D3) 2,000 unit PO QAM #0 06/05/16 01/14/19 History duloxetine 60 mg PO QAM #0 06/05/16 01/14/19 History aspirin [Ecotrin Low Strength] 81 mg PO QAM #0 07/03/16 01/14/19 History omeprazole 20 mg PO QAM #0 07/03/16 01/14/19 History prednisone 10 mg PO BID #0 tab 08/29/16 01/14/19 History donepezil 5 mg PO HS #0 10/11/16 01/14/19 History levothyroxine 50 mcg PO 4XWK #0 10/11/16 01/14/19 History Lactobacillus acidophilus 1 cap PO BID #0 01/08/17 01/14/19 History cyanocobalamin (vitamin B-12) 1,000 mcg PO QAM #0 01/08/17 01/14/19 History gabapentin 600 mg PO TID #0 01/08/17 01/14/19 History Krill Oil ([place] 3 and 6) 1 cap PO DAILY #0 01/01/18 01/14/19 History celecoxib 200 mg PO QAM #0 cap 01/01/18 01/14/19 History methadone 30 mg PO BID #0 01/01/18 01/14/19 History Combivent Respimat 1 puff INHALATION QID PRN 09/23/18 01/14/19 History fluticasone propionate 1 spray INTRANASAL DAILY PRN 09/23/18 01/14/19 History losartan-hydrochlorothiazide 1 tab PO QAM 09/23/18 01/14/19 History amlodipine 5 mg PO DAILY PRN 10/22/18 01/14/19 History latanoprost 1 drp OPHTHALMIC (EYE) HS 10/22/18 01/14/19 History potassium chloride 20 meq PO BID 10/22/18 01/14/19 History tamsulosin 0.4 mg PO DAILY 10/22/18 01/14/19 History levothyroxine 25 mcg PO 3XWK 01/14/19 01/14/19 History Past Med/Surg History Medical History Nocturnal hypoxemia (Chronic) CKD (chronic kidney disease), stage III (Chronic) Diabetes mellitus, type II (Chronic) Polymyalgia rheumatica (Chronic) Atrial tachycardia (Chronic) HTN (hypertension) (Chronic) Fibromyalgia (Chronic) CVA (cerebral infarction) (Chronic) residual R sided weakness COPD (chronic obstructive pulmonary disease) (Chronic) Sleep apnea (Chronic) CPAP/BiPAP intolerant Hypothyroidism (Chronic) PMR (polymyalgia rheumatica) (Chronic) Chronic pain syndrome (Chronic) FELICITA (iron deficiency anemia) (Chronic) Monoclonal gammopathy (Chronic) Surgical History History of cholecystectomy (Chronic) History of total left knee replacement (Chronic) S/P small bowel resection (Chronic) H/O hernia repair (Chronic) Family History Other No pertinent family history Social History Preferred Language: Q[place] Communication Ability: Effective Visual Impairment: No Limitations Hearing Ability: Normal 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 Floor 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: No Beliefs That Will Affect Care: None marital status: Current Living Situation: Spouse Current Living Situation Comment: home with home health Other Information That Helps Us Care for You: No Feels Safe at Home: Yes Safety Concerns: Feels Safe At This Time Smoking Status: Former smoker Do You Dip or Chew Tobacco: No ; Second Hand Exposure: No ; Hx Alcohol Use: No Hx Substance Use: No Review of Systems Review of Systems: Could not be reliably obtained Physical Exam Physical Exam: GENERAL: Lethargic, min respiratory distress, obese SKIN: Pallor , warm HEENT: Partial alopecia, pale palpebral conjunctivae, no ptosis, dry buccal mucosa, BiPAP in place NECK : Supple, short neck, no tenderness CHEST : Decreased breath sounds, expiratory wheeze on the right side , no tenderness HEART : Tachycardic, no obvious murmurs ABDOMEN: distention, nontender EXTREMITIES : Minimal LE swelling, no LE tenderness, no other conspicuous deformities noted NEUROLOGIC : Lethargic, no facial asymmetry, episodic myoclonic jerks of the left upper extremity Results & Data Vital Signs (Past 12 Hours) Vital Signs Temp Pulse Pulse Resp BP BP Pulse Ox 01/14/19 19:23 100 H 20 117/95 100 01/14/19 19:18 101 H 21 94 01/14/19 19:10 108 H 22 94 01/14/19 18:42 37.4 C 110 H 22 153/118 H 92 Laboratory Results Laboratory Results WBC 15.42 K/uL (4.8-10.8) H 01/14/19 18:59 RBC 5.13 M/uL (4.7-6.1) 01/14/19 18:59 Hgb 12.5 g/dL (14.0-18.0) L 01/14/19 18:59 Hct 39.4 % (42-52) L 01/14/19 18:59 MCV 76.8 fL (80-100) L 01/14/19 18:59 MCH 24.4 pg (25-34) L 01/14/19 18:59 MCHC 31.7 g/dL (32-36) L 01/14/19 18:59 RDW Std Deviation 51.7 fL (36.4-46.3) H 01/14/19 18:59 RDW Coeff of Don 18.4 % (11.5-14.5) H 01/14/19 18:59 Plt Count 223 K/uL (130-400) 01/14/19 18:59 MPV 10.4 fL (7.4-10.4) 01/14/19 18:59 Immature Gran % (Auto) 0.8 % 01/14/19 18:59 Neut % (Auto) 84.4 % 01/14/19 18:59 Lymph % (Auto) 9.5 % 01/14/19 18:59 Whitley % (Auto) 4.7 % 01/14/19 18:59 Eos % (Auto) 0.5 % 01/14/19 18:59 Baso % (Auto) 0.1 % 01/14/19 18:59 Immature Gran # (Auto) 0.13 K/uL (0.00-0.02) H 01/14/19 18:59 Neut # (Auto) 13.01 K/uL (1.4-6.5) H 01/14/19 18:59 Lymph # (Auto) 1.47 K/uL (1.2-3.4) 01/14/19 18:59 Whitley # (Auto) 0.72 K/uL (0.11-0.59) H 01/14/19 18:59 Eos # (Auto) 0.08 K/uL (0-0.5) 01/14/19 18:59 Baso # (Auto) 0.01 K/uL (0-0.2) 01/14/19 18:59 POC pH 7.39 (7.35-7.45) 01/14/19 19:10 POC pCO2 39 mmHg (35-46) 01/14/19 19:10 POC pO2 72 mmHg (80-95) L 01/14/19 19:10 POC HCO3 24 alcira/L (19-24) 01/14/19 19:10 POC Total CO2 25 mEq/l (24-31) 01/14/19 19:10 POC Base Excess -1.0 alcira/L (-9-1.8) 01/14/19 19:10 POC ABG O2 Sat 94.0 % (90-95) 01/14/19 19:10 Sodium 137 mmol/L (136-145) 01/14/19 18:59 Potassium 4.2 mmol/L (3.5-5.1) 01/14/19 18:59 Chloride 102 mmol/L (98-107) 01/14/19 18:59 Carbon Dioxide 27 mmol/L (21-32) 01/14/19 18:59 Anion Gap 8.0 (3-11) 01/14/19 18:59 BUN 20 mg/dl (7-18) H 01/14/19 18:59 Creatinine 1.17 mg/dl (0.6-1.4) 01/14/19 18:59 Est Cr Clr Drug Dosing 76.9 ml/min 01/14/19 18:59 Est GFR ( Amer) 68.8 01/14/19 18:59 Est GFR (Non-Af Amer) 59.4 01/14/19 18:59 BUN/Creatinine Ratio 16.8 (10-20) 01/14/19 18:59 Glucose 114 mg/dl (70-99) H 01/14/19 18:59 Calcium 9.5 mg/dl (8.5-10.1) 01/14/19 18:59 Magnesium 1.6 mg/dl (1.8-2.4) L 01/14/19 18:59 Total Bilirubin 0.5 mg/dl (0.2-1) 01/14/19 18:59 AST 13 U/L (15-37) L 01/14/19 18:59 ALT 17 U/L (12-78) 01/14/19 18:59 Alkaline Phosphatase 76 U/L (45-117) 01/14/19 18:59 Troponin I < 0.015 ng/ml (0-0.045) 01/14/19 18:59 NT-Pro-B Natriuret Pep 80 pg/ml (0-1800) 01/14/19 18:59 Total Protein 7.1 gm/dl (6.4-8.2) 01/14/19 18:59 Albumin 2.7 gm/dl (3.4-5.0) L 01/14/19 18:59 Globulin 4.4 gm/dl (2.5-4.0) H 01/14/19 18:59 Albumin/Globulin Ratio 0.6 (0.9-2) L 01/14/19 18:59 Lipase 72 U/L (73-393) L 01/14/19 18:59 Specimen Hemolysis 01/14/19 18:59 Diagnostic Findings Chest x-ray : 1. Added density in the right perihilar region could relate to bronchial wall thickening or peribronchial vascular infiltrate. This is not typical for pneumonia or edema. The appearance may in part relate to patient rotation and portable view. EKG as per my interpretation : Rate 105, sinus tachycardia, normal axis, incomplete RBBB, LAE, T wave inversion inferior leads, PVCs
--- NOTE | 2019-01-14 21:40 | Emergency Department Note ---
Entered by Asha Cool acting as a scribe for History of Present Illness General Chief complaint: Shortness of Breath/Dyspnea Stated complaint: SOB Time Seen by Provider: 01/14/19 18:37 Source: patient History of Present Illness Provider complaint: Shortness of Breath Maximum Pain Intensity: 8 Associated symptoms: + denies other symptoms (Pain) The patient is a 78 year old male who presents to the Emergency Room with complaints of shortness of breath. While the patient was on 4 liters of oxygen his stats dropped to 82%. The patient denies any actual pain. ROS and HPI limited secondary to respiratory distress. Home Medications Home Medications Medication Instructions Recorded Confirmed Type cholecalciferol (vitamin D3) 2,000 unit PO QAM #0 06/05/16 01/14/19 History duloxetine 60 mg PO QAM #0 06/05/16 01/14/19 History aspirin [Ecotrin Low Strength] 81 mg PO QAM #0 07/03/16 01/14/19 History omeprazole 20 mg PO QAM #0 07/03/16 01/14/19 History prednisone 10 mg PO BID #0 tab 08/29/16 01/14/19 History donepezil 5 mg PO HS #0 10/11/16 01/14/19 History levothyroxine 50 mcg PO 4XWK #0 10/11/16 01/14/19 History Lactobacillus acidophilus 1 cap PO BID #0 01/08/17 01/14/19 History cyanocobalamin (vitamin B-12) 1,000 mcg PO QAM #0 01/08/17 01/14/19 History gabapentin 600 mg PO TID #0 01/08/17 01/14/19 History Krill Oil (Barling 3 and 6) 1 cap PO DAILY #0 01/01/18 01/14/19 History celecoxib 200 mg PO QAM #0 cap 01/01/18 01/14/19 History methadone 30 mg PO BID #0 01/01/18 01/14/19 History Combivent Respimat 1 puff INHALATION QID PRN 09/23/18 01/14/19 History fluticasone propionate 1 spray INTRANASAL DAILY PRN 09/23/18 01/14/19 History losartan-hydrochlorothiazide 1 tab PO QAM 09/23/18 01/14/19 History amlodipine 5 mg PO DAILY PRN 10/22/18 01/14/19 History latanoprost 1 drp OPHTHALMIC (EYE) HS 10/22/18 01/14/19 History potassium chloride 20 meq PO BID 10/22/18 01/14/19 History tamsulosin 0.4 mg PO DAILY 10/22/18 01/14/19 History levothyroxine 25 mcg PO 3XWK 01/14/19 01/14/19 History ipratropium bromide 0.5 mg INHALATION Q6R 14 Days #150 01/16/19 Rx ml levalbuterol HCl 1.25 mg INHALATION Q6R 14 Days #60 01/16/19 Rx ea Allergies Allergy/AdvReac Type Severity Reaction Status Date / Time Iodinated Contrast- Oral and Allergy Intermediate HIVES Verified 10/22/18 13:15 IV Dye lactose AdvReac Gastrointestinal Unverified 01/14/19 21:00 Upset Past Med/Surg History Medical History Nocturnal hypoxemia (Chronic) CKD (chronic kidney disease), stage III (Chronic) Diabetes mellitus, type II (Chronic) Polymyalgia rheumatica (Chronic) Atrial tachycardia (Chronic) HTN (hypertension) (Chronic) Fibromyalgia (Chronic) CVA (cerebral infarction) (Chronic) residual R sided weakness COPD (chronic obstructive pulmonary disease) (Chronic) Sleep apnea (Chronic) CPAP/BiPAP intolerant Hypothyroidism (Chronic) PMR (polymyalgia rheumatica) (Chronic) Chronic pain syndrome (Chronic) FELICITA (iron deficiency anemia) (Chronic) Monoclonal gammopathy (Chronic) Surgical History History of cholecystectomy (Chronic) History of total left knee replacement (Chronic) S/P small bowel resection (Chronic) H/O hernia repair (Chronic) Family History Other No pertinent family history Social History Preferred Language: Gu[place]an Communication Ability: Effective Visual Impairment: No Limitations Hearing Ability: Normal Orthopedic Surgeon Required: No Beliefs That Will Affect Care: None marital status: Current Living Situation: Spouse Current Living Situation Comment: home with home health Other Information That Helps Us Care for You: No Feels Safe at Home: Yes Safety Concerns: Feels Safe At This Time Smoking Status: Former smoker Do You Dip or Chew Tobacco: No ; Second Hand Exposure: No ; Hx Alcohol Use: No Hx Substance Use: No Review of Systems ROS and HPI limited secondary to respiratory distress. Physical Exam Vital Signs Vital Signs - 24 hr 01/14/19 18:42 01/14/19 19:10 01/14/19 19:18 Temperature 37.4 C Temperature Source Oral Sepsis Recent Fever Within 48 Hours Yes Sepsis New/Unexplained Change in Mental Status No Sepsis Action Taken by Nursing No Action Required Pulse Rate 110 H 108 H Pulse Rate [Right Finger] 101 H Respiratory Rate 22 22 21 Respiratory Effort / Characteristics Spontaneous Moaning Short of Breath SOB on Exertion Spontaneous Short of Breath SOB on Exertion Respiratory Depth Deep Respiratory Pattern Regular Blood Pressure 153/118 H Blood Pressure [Left Arm] Blood Pressure Mean 129 Blood Pressure Mean [Left Arm] Pulse Oximetry 92 94 94 Oxygen Delivery Method Nasal Cannula BiPAP Oxygen Flow Rate 4 Fraction of Inspired Oxygen 30 30 01/14/19 19:23 Temperature Temperature Source Sepsis Recent Fever Within 48 Hours Sepsis New/Unexplained Change in Mental Status Sepsis Action Taken by Nursing Pulse Rate Pulse Rate [Right Finger] 100 H Respiratory Rate 20 Respiratory Effort / Characteristics Respiratory Depth Respiratory Pattern Blood Pressure Blood Pressure [Left Arm] 117/95 Blood Pressure Mean Blood Pressure Mean [Left Arm] 102 Pulse Oximetry 100 Oxygen Delivery Method BiPAP Oxygen Flow Rate Fraction of Inspired Oxygen GENERAL: alert, ill appearing, well nourished, moderate distress, non-toxic. Obese. EYE EXAM: normal conjunctiva, PERRL and EOM's grossly intact OROPHARYNX: no exudate, no erythema, lips, buccal mucosa, and tongue normal and mucous membranes are moist NECK: supple, no nuchal rigidity, no adenopathy, non-tender LUNGS: Normal chest wall mechanics. Increased work of breathing with increased abdominal muscle use. Tachypnea. Hypoxia. Speaks in one word answers only. HEART: no murmurs, S1 normal and S2 normal ABDOMEN: abdomen soft, non-tender, normo-active bowel sounds, no masses, no rebound or guarding. Well-healed vertical midline surgical scar to abdomen. BACK: Back is symmetrical on inspection and there is no deformity, no midline tenderness, no CVA tenderness. SKIN: no rashes and no bruising UPPER EXTREMITIES: upper extremities are grossly normal. Nml pulses b/l. LOWER EXTREMITIES: 2+ bilateral lower extremity edema. Nml pulses b/l. NEURO EXAM: Patient opens eyes to voice. Can answer simple questions but at times seems confused. Moving all extremities spontaneously. No dysrhythmia. No facial droop. Course 1844: Past medical records reviewed. The patient was evaluated in room B10. A complete history and physical exam was performed. I remained in the room until respiratory therapy arrived and started the patient on BiPAP. 1856: I reevaluated the patient and the respiratory team is in the room initiating BIPAP. 1944: I reevaluated the patient and he has decreased work of breath. The patient's stats are now 100%. Patient appears comfortable. The patient's is now at bedside and can provide additional patient medical history. 2042: The patient appears more comfortable. I discussed additional inpatient management with the and she is in agreement. 2100: I spoke with Dr. Camara about the patient's case and he will accept the patient for further management. Administered Medications Aspirin (Ecotrin Ectab) 81 mg PO QAM [facility] Stop: 02/14/19 08:59 Last Admin: 01/17/19 07:51 Dose: 81 mg Documented by: [id number] Admin: 01/16/19 08:10 Dose: 81 mg Documented by: [id number] Admin: 01/15/19 08:10 Dose: 81 mg Documented by: [id number] Cyanocobalamin (Vitamin B-12) 1,000 mcg PO QAM [facility] Stop: 02/14/19 08:59 Last Admin: 01/17/19 07:53 Dose: 1,000 mcg Documented by: [id number] Admin: 01/16/19 08:10 Dose: 1,000 mcg Documented by: [id number] Admin: 01/15/19 08:10 Dose: 1,000 mcg Documented by: [id number] Donepezil HCl (Aricept) 5 mg PO HS [facility] Stop: 02/14/19 20:59 Last Admin: 01/16/19 20:39 Dose: 5 mg Documented by: [id number] Admin: 01/15/19 20:35 Dose: 5 mg Documented by: [id number] Doxycycline Hyclate (Vibramycin) 100 mg PO Q12H [facility] Stop: 01/22/19 17:59 Last Admin: 01/17/19 05:41 Dose: 100 mg Documented by: [id number] Admin: 01/16/19 17:30 Dose: 100 mg Documented by: [id number] Admin: 01/16/19 05:15 Dose: 100 mg Documented by: [id number] Admin: 01/15/19 17:29 Dose: 100 mg Documented by: [id number] Duloxetine HCl (Cymbalta) 60 mg PO QAM [facility] Stop: 02/14/19 08:59 Last Admin: 01/17/19 07:53 Dose: 60 mg Documented by: [id number] Admin: 01/16/19 08:10 Dose: 60 mg Documented by: [id number] Admin: 01/15/19 08:10 Dose: 60 mg Documented by: [id number] [facility]aparin S[facility] ([facility]ox) [facility] [place] [facility] 02/14/19 08:59 Last Admin: 01/17/19 07:53 Dose: 40 mg Documented by: [id number] Admin: 01/16/19 08:11 Dose: 40 mg Documented by: [id number] Admin: 01/15/19 08:27 Dose: Not Given Documented by: [id number] Gabapentin (Neurontin) 600 mg PO TID [facility] Stop: 02/14/19 08:59 Last Admin: 01/17/19 07:52 Dose: 600 mg Documented by: [id number] Admin: 01/16/19 20:40 Dose: 600 mg Documented by: [id number] Admin: 01/16/19 12:48 Dose: 600 mg Documented by: [id number] Admin: 01/16/19 08:10 Dose: 600 mg Documented by: [id number] Admin: 01/15/19 20:35 Dose: 600 mg Documented by: [id number] Admin: 01/15/19 13:51 Dose: 600 mg Documented by: [id number] Admin: 01/15/19 08:10 Dose: 600 mg Documented by: [id number] Hydralazine HCl (Hydralazine Hcl) 10 mg IV Q6H PRN PRN Reason: systolic bp > 160 Stop: 02/15/19 18:59 Last Admin: 01/16/19 23:39 Dose: 10 mg Documented by: [id number] Piperacillin Sod/Tazobactam (Sod 4.5 gm/ Dextrose) 120 mls @ 30 mls/hr IV Q8H [facility]; Protocol Stop: 01/22/19 07:59 Last Admin: 01/17/19 08:00 Dose: 30 mls/hr Documented by: [id number] Infusion: 01/17/19 03:39 Dose: 0 mls/hr Documented by: [id number] Admin: 01/16/19 23:39 Dose: 30 mls/hr Documented by: [id number] Infusion: 01/16/19 19:46 Dose: 0 mls/hr Documented by: [id number] Admin: 01/16/19 15:29 Dose: 30 mls/hr Documented by: [id number] Infusion: 01/16/19 12:13 Dose: 0 mls/hr Documented by: [id number] Admin: 01/16/19 08:08 Dose: 30 mls/hr Documented by: [id number] Infusion: 01/16/19 04:11 Dose: 0 mls/hr Documented by: [id number] Admin: 01/16/19 00:09 Dose: 30 mls/hr Documented by: [id number] Infusion: 01/15/19 20:49 Dose: 0 mls/hr Documented by: [id number] Admin: 01/15/19 16:39 Dose: 30 mls/hr Documented by: [id number] Infusion: 01/15/19 12:54 Dose: 0 mls/hr Documented by: [id number] Admin: 01/15/19 08:20 Dose: 30 mls/hr Documented by: [id number] Insulin Aspart (Novolog Flexpen) 0 units SC ACHS [facility] Stop: 02/14/19 07:29 Last Admin: 01/17/19 08:01 Dose: Not Given Documented by: [id number] Cosigned by: [id number] Admin: 01/16/19 20:38 Dose: 1 units Documented by: [id number] Cosigned by: [id number] Admin: 01/16/19 17:30 Dose: 8 units Documented by: [id number] Cosigned by: [id number] Admin: 01/16/19 12:49 Dose: 10 units Documented by: [id number] Cosigned by: [id number] Admin: 01/16/19 08:12 Dose: 5 units Documented by: [id number] Cosigned by: [id number] Admin: 01/15/19 21:30 Dose: 7 units Documented by: [id number] Cosigned by: [id number] Admin: 01/15/19 17:29 Dose: 4 units Documented by: [id number] Cosigned by: [id number] Admin: 01/15/19 12:08 Dose: 9 units Documented by: [id number] Cosigned by: [id number] Admin: 01/15/19 08:25 Dose: Not Given Documented by: [id number] Cosigned by: [id number] Insulin Human NPH (Novolin N Nph) 25 units SC QDB [facility]; Protocol Stop: 02/16/19 07:29 Last Admin: 01/17/19 08:09 Dose: Not Given Documented by: [id number] Ipratropium [place] (Atrovent 0.02% 0.5mg/2.5ml) 0.5 mg INH Q6R [facility] Stop: 02/14/19 00:59 Last Admin: 01/17/19 07:13 Dose: 0.5 mg Documented by: [id number] Admin: 01/17/19 01:12 Dose: 0.5 mg Documented by: [id number] Admin: 01/16/19 18:51 Dose: 0.5 mg Documented by: [id number] Admin: 01/16/19 13:26 Dose: 0.5 mg Documented by: [id number] Admin: 01/16/19 06:58 Dose: 0.5 mg Documented by: [id number] Admin: 01/16/19 01:01 Dose: 0.5 mg Documented by: [id number] Admin: 01/15/19 19:21 Dose: 0.5 mg Documented by: [id number] Admin: 01/15/19 13:05 Dose: 0.5 mg Documented by: [id number] Admin: 01/15/19 07:05 Dose: 0.5 mg Documented by: [id number] Admin: 01/15/19 01:46 Dose: 0.5 mg Documented by: [id number] Lactobacillus Acidophilus (Floranex) 4 tab PO BID [facility] Stop: 02/14/19 08:59 Last Admin: 01/17/19 07:52 Dose: 4 tab Documented by: [id number] Admin: 01/16/19 20:40 Dose: 4 tab Documented by: [id number] Admin: 01/16/19 08:08 Dose: 4 tab Documented by: [id number] Admin: 01/15/19 20:35 Dose: 4 tab Documented by: [id number] Admin: 01/15/19 08:11 Dose: 4 tab Documented by: [id number] Latanoprost (Xalatan Oph) 1 drops OP HS [facility] Stop: 02/14/19 20:59 Last Admin: 01/16/19 20:39 Dose: 1 drops Documented by: [id number] Admin: 01/15/19 20:35 Dose: 1 drops Documented by: [id number] Levalbuterol HCl (Xopenex 1.25mg/0.5ml Neb) 1.25 mg INH Q6R [facility] Stop: 02/14/19 00:59 Last Admin: 01/17/19 07:13 Dose: 1.25 mg Documented by: [id number] Admin: 01/17/19 01:12 Dose: 1.25 mg Documented by: [id number] Admin: 01/16/19 18:51 Dose: 1.25 mg Documented by: [id number] Admin: 01/16/19 13:26 Dose: 1.25 mg Documented by: [id number] Admin: 01/16/19 06:58 Dose: 1.25 mg Documented by: [id number] Admin: 01/16/19 01:02 Dose: 1.25 mg Documented by: [id number] Admin: 01/15/19 19:21 Dose: 1.25 mg Documented by: [id number] Admin: 01/15/19 13:04 Dose: 1.25 mg Documented by: [id number] Admin: 01/15/19 07:05 Dose: 1.25 mg Documented by: [id number] Admin: 01/15/19 01:46 Dose: 1.25 mg Documented by: [id number] Levothyroxine Sodium (Synthroid) 25 mcg PO [email or web address] [facility] Stop: 02/15/19 06:29 Last Admin: 01/16/19 05:15 Dose: 25 mcg Documented by: [id number] Levothyroxine Sodium (Synthroid) 50 mcg PO [email or web address] [facility] Stop: 02/14/19 06:29 Last Admin: 01/15/19 05:55 Dose: 50 mcg Documented by: [id number] Losartan Potassium (Cozaar) 100 mg PO QAM [facility] Stop: 02/14/19 08:59 Last Admin: 01/17/19 07:52 Dose: 100 mg Documented by: [id number] Admin: 01/16/19 08:09 Dose: 100 mg Documented by: [id number] Admin: 01/15/19 08:10 Dose: 100 mg Documented by: [id number] Methadone HCl (Dolophine) 30 mg PO BID [facility] Stop: 01/29/19 08:59 Last Admin: 01/17/19 08:00 Dose: 30 mg Documented by: [id number] Admin: 01/16/19 20:38 Dose: 30 mg Documented by: [id number] Admin: 01/16/19 08:12 Dose: 30 mg Documented by: [id number] Admin: 01/15/19 20:42 Dose: 30 mg Documented by: [id number] Admin: 01/15/19 08:20 Dose: 30 mg Documented by: [id number] Pantoprazole Sodium (Protonix) 40 mg PO QAM [facility] Stop: 02/14/19 08:59 Last Admin: 01/17/19 07:52 Dose: 40 mg Documented by: [id number] Admin: 01/16/19 08:09 Dose: 40 mg Documented by: [id number] Admin: 01/15/19 08:11 Dose: 40 mg Documented by: [id number] Prednisone (Prednisone) 30 mg PO DAILY [facility] Stop: 01/21/19 08:59 Last Admin: 01/17/19 07:51 Dose: 30 mg Documented by: [id number] Tamsulosin HCl (Flomax) 0.4 mg PO DAILY [facility] Stop: 02/14/19 08:59 Last Admin: 01/17/19 07:53 Dose: 0.4 mg Documented by: [id number] Admin: 01/16/19 08:11 Dose: 0.4 mg Documented by: [id number] Admin: 01/15/19 08:10 Dose: 0.4 mg Documented by: [id number] Discontinued Medications Albuterol (Duoneb) 12 ml NEB ONE ONE Stop: 01/14/19 18:48 Last Admin: 01/14/19 19:17 Dose: 12 ml Documented by: [id number] Magnesium Sulfate/Dextrose (Magnesium Sulfate / D5w) 1 gm in 100 mls @ 100 mls/hr IV ONE ONE Stop: 01/14/19 19:46 Last Infusion: 01/14/19 20:21 Dose: 0 mls/hr Documented by: [id number] Admin: 01/14/19 19:21 Dose: 100 mls/hr Documented by: [id number] Lactated Ringer's (Lr) 1,000 mls @ 500 mls/hr IV .Q2H ONE Stop: 01/14/19 22:54 Last Infusion: 01/15/19 01:23 Dose: 0 mls/hr Documented by: [id number] Infusion: 01/15/19 00:21 Dose: 500 mls/hr Documented by: [id number] Admin: 01/14/19 21:16 Dose: 200 mls/hr Documented by: [id number] Levofloxacin/Dextrose (Levaquin/D5w) 750 mg in 150 mls @ 100 mls/hr IV Q24H [facility] Stop: 01/21/19 20:59 Last Infusion: 01/14/19 23:48 Dose: 0 mls/hr Documented by: [id number] Admin: 01/14/19 21:15 Dose: 100 mls/hr Documented by: [id number] Magnesium Sulfate/Dextrose (Magnesium Sulfate / D5w) 1 gm in 100 mls @ 100 mls/hr IV ONE ONE Stop: 01/14/19 22:42 Last Infusion: 01/15/19 00:18 Dose: 0 mls/hr Documented by: [id number] Admin: 01/14/19 23:00 Dose: 100 mls/hr Documented by: [id number] Magnesium Sulfate/Dextrose (Magnesium Sulfate / D5w) 1 gm in 100 mls @ 100 mls /hr IV ONE ONE Stop: 01/15/19 00:36 Last Admin: 01/14/19 23:55 Dose: Not Given Documented by: [id number] Ampicillin Sodium/Sulbactam Sodium 3,000 mg/ Sodium Chloride 108 mls @ 200 mls/hr IV NOW STA Stop: 01/15/19 01:00 Last Infusion: 01/15/19 01:58 Dose: 0 mls/hr Documented by: [id number] Admin: 01/15/19 01:22 Dose: 200 mls/hr Documented by: [id number] Lactated Ringer's (Lr) 1,000 mls @ 500 mls/hr IV .Q2H ONE Stop: 01/15/19 01:59 Last Infusion: 01/15/19 04:24 Dose: 0 mls/hr Documented by: [id number] Admin: 01/15/19 01:58 Dose: 500 mls/hr Documented by: [id number] Sodium Chloride (Nss 1000ml) 1,000 mls @ 999 mls/hr IV .Q1H1M ONE Stop: 01/15/19 05:15 Last Infusion: 01/15/19 05:50 Dose: 0 mls/hr Documented by: [id number] Admin: 01/15/19 04:46 Dose: 999 mls/hr Documented by: [id number] Doxycycline Hyclate 100 mg/ (Dextrose) 110 mls @ 50 mls/hr IV NOW STA Stop: 01/15/19 07:48 Last Infusion: 01/15/19 08:11 Dose: 0 mls/hr Documented by: [id number] Admin: 01/15/19 05:55 Dose: 50 mls/hr Documented by: [id number] Lactated Ringer's (Lr) 1,000 mls @ 200 mls/hr IV .Q5H ONE Stop: 01/15/19 10:39 Last Infusion: 01/15/19 13:45 Dose: 0 mls/hr Documented by: [id number] Infusion: 01/15/19 09:40 Dose: 200 mls/hr Documented by: [id number] Infusion: 01/15/19 08:28 Dose: 0 mls/hr Documented by: [id number] Admin: 01/15/19 06:44 Dose: 200 mls/hr Documented by: [id number] Sodium Chloride (Nss 1000ml) 1,000 mls @ 75 mls/hr IV .[id number] [facility] Stop: 02/14/19 14:44 Last Infusion: 01/16/19 19:08 Dose: 0 mls/hr Documented by: [id number] Admin: 01/16/19 15:27 Dose: 75 mls/hr Documented by: [id number] Infusion: 01/16/19 14:48 Dose: 75 mls/hr Documented by: [id number] Admin: 01/16/19 01:28 Dose: 75 mls/hr Documented by: [id number] Infusion: 01/16/19 01:28 Dose: 75 mls/hr Documented by: [id number] Infusion: 01/15/19 21:47 Dose: 75 mls/hr Documented by: [id number] Admin: 01/15/19 14:42 Dose: 100 mls/hr Documented by: [id number] Insulin Glargine (Lantus Solostar Pen) 10 units SQ NOW STA Stop: 01/15/19 00:54 Last Admin: 01/15/19 01:24 Dose: 10 units Documented by: [id number] Cosigned by: [id number] Insulin Glargine (Lantus Solostar Pen) 10 units SC BID [facility] Stop: 02/14/19 06:44 Last Admin: 01/15/19 08:26 Dose: Not Given Documented by: [id number] Cosigned by: [id number] Methylprednisolone (Solumedrol) 60 mg IV NOW STA Stop: 01/14/19 18:48 Last Admin: 01/14/19 19:21 Dose: 60 mg Documented by: [id number] Naloxone HCl (Narcan) 0.4 mg IV NOW STA Stop: 01/14/19 19:32 Last Admin: 01/14/19 19:44 Dose: 0.4 mg Documented by: [id number] Prednisone (Prednisone) 40 mg PO DAILY [facility] Stop: 01/19/19 08:59 Last Admin: 01/16/19 08:09 Dose: 40 mg Documented by: [id number] Admin: 01/15/19 08:10 Dose: 40 mg Documented by: [id number] Medical Decision Making Differential Diagnosis Differential diagnosis: Etiologies such as infections, reactive airway disease, COPD, pneumonia, pleural effusion, pulmonary edema, ARDS, pneumothorax, CHF, cardiac ischemia, cardiac tamponade, dysrhythmia, anemia, pulmonary embolism, musculoskeletal, gastroint estinal process, as well as others were entertained. Medical Records Attestation: I reviewed the patient's medical records. Home Medications Current Medication List: was personally reviewed by me Laboratory Data Attestation: I reviewed the patient's lab results. Result diagrams: 01/16/19 08:05 01/16/19 08:05 Lab Results 01/14/19 01/14/19 01/14/19 Range/Units 18:59 18:59 19:10 WBC 15.42 H (4.8-10.8) K/uL RBC 5.13 (4.7-6.1) M/uL Hgb 12.5 L (14.0-18.0) g/dL Hct 39.4 L (42-52) % MCV 76.8 L (80-100) fL MCH 24.4 L (25-34) pg MCHC 31.7 L (32-36) g/dL RDW Std Deviation 51.7 H (36.4-46.3) fL RDW Coeff of Don 18.4 H (11.5-14.5) % Plt Count 223 (130-400) K/uL MPV 10.4 (7.4-10.4) fL Immature Gran % (Auto) 0.8 % Neut % (Auto) 84.4 % Lymph % (Auto) 9.5 % Wetzel % (Auto) 4.7 % Eos % (Auto) 0.5 % Baso % (Auto) 0.1 % Immature Gran # (Auto) 0.13 H (0.00-0.02) K/uL Neut # (Auto) 13.01 H (1.4-6.5) K/uL Lymph # (Auto) 1.47 (1.2-3.4) K/uL Wetzel # (Auto) 0.72 H (0.11-0.59) K/uL Eos # (Auto) 0.08 (0-0.5) K/uL Baso # (Auto) 0.01 (0-0.2) K/uL POC pH 7.39 (7.35-7.45) POC pCO2 39 (35-46) mmHg POC pO2 72 L (80-95) mmHg POC HCO3 24 (19-24) alcira/L POC Total CO2 25 (24-31) mEq/l POC Base Excess -1.0 (-9-1.8) alcira/L POC ABG O2 Sat 94.0 (90-95) % Sodium 137 (136-145) mmol/L Potassium 4.2 (3.5-5.1) mmol/L Chloride 102 (98-107) mmol/L Carbon Dioxide 27 (21-32) mmol/L Anion Gap 8.0 (3-11) BUN 20 H (7-18) mg/dl Creatinine 1.17 (0.6-1.4) mg/dl Est Cr Clr Drug Dosing 76.9 ml/min Est GFR ( Amer) 68.8 Est GFR (Non-Af Amer) 59.4 BUN/Creatinine Ratio 16.8 (10-20) Glucose 114 H (70-99) mg/dl Calcium 9.5 (8.5-10.1) mg/dl Magnesium 1.6 L (1.8-2.4) mg/dl Total Bilirubin 0.5 (0.2-1) mg/dl AST 13 L (15-37) U/L ALT 17 (12-78) U/L Alkaline Phosphatase 76 (45-117) U/L Troponin I < 0.015 (0-0.045) ng/ml NT-Pro-B Natriuret Pep 80 (0-1800) pg/ml Total Protein 7.1 (6.4-8.2) gm/dl Albumin 2.7 L (3.4-5.0) gm/dl Globulin 4.4 H (2.5-4.0) gm/dl Albumin/Globulin Ratio 0.6 L (0.9-2) Lipase 72 L (73-393) U/L TSH 1.640 (0.300-4.500) uIu/ml Specimen Hemolysis Influenza Type A (PCR) (Neg) Influenza Type B (PCR) (Neg) 01/14/19 Range/Units 21:20 WBC (4.8-10.8) K/uL RBC (4.7-6.1) M/uL Hgb (14.0-18.0) g/dL Hct (42-52) % MCV (80-100) fL MCH (25-34) pg MCHC (32-36) g/dL RDW Std Deviation (36.4-46.3) fL RDW Coeff of Don (11.5-14.5) % Plt Count (130-400) K/uL MPV (7.4-10.4) fL Immature Gran % (Auto) % Neut % (Auto) % Lymph % (Auto) % Wetzel % (Auto) % Eos % (Auto) % Baso % (Auto) % Immature Gran # (Auto) (0.00-0.02) K/uL Neut # (Auto) (1.4-6.5) K/uL Lymph # (Auto) (1.2-3.4) K/uL [place] # (Auto) (0.11-0.59) K/uL Eos # (Auto) (0-0.5) K/uL Baso # (Auto) (0-0.2) K/uL POC pH (7.35-7.45) POC pCO2 (35-46) mmHg POC pO2 (80-95) mmHg POC HCO3 (19-24) alcira/L POC Total CO2 (24-31) mEq/l POC Base Excess (-9-1.8) alcira/L POC ABG O2 Sat (90-95) % Sodium (136-145) mmol/L Potassium (3.5-5.1) mmol/L Chloride (98-107) mmol/L Carbon Dioxide (21-32) mmol/L Anion Gap (3-11) BUN (7-18) mg/dl Creatinine (0.6-1.4) mg/dl Est Cr Clr Drug Dosing ml/min Est GFR ( Amer) Est GFR (Non-Af Amer) BUN/Creatinine Ratio (10-20) Glucose (70-99) mg/dl Calcium (8.5-10.1) mg/dl Magnesium (1.8-2.4) mg/dl Total Bilirubin (0.2-1) mg/dl AST (15-37) U/L ALT (12-78) U/L Alkaline Phosphatase (45-117) U/L Troponin I (0-0.045) ng/ml NT-Pro-B Natriuret Pep (0-1800) pg/ml Total Protein (6.4-8.2) gm/dl Albumin (3.4-5.0) gm/dl Globulin (2.5-4.0) gm/dl Albumin/Globulin Ratio (0.9-2) Lipase (73-393) U/L TSH (0.300-4.500) uIu/ml Specimen Hemolysis Influenza Type A (PCR) Neg for Influ A (Neg) Influenza Type B (PCR) Neg for Influ B (Neg) Imaging Data Radiologist's Impression: Radiology results as stated below per my review and the radiologist's interpretation: XR chest 1V portable CLINICAL HISTORY: 78 years-old Male presenting with sob. TECHNIQUE: Portable upright AP view of the chest was obtained. COMPARISON: 10/29/2018. FINDINGS: The patient is slightly [place] rotated. Allowing for this, prominent central tortuosity of the thoracic aorta, which demonstrates atherosclerosis. Cardiac silhouette mildly enlarged. Bronchial wall cuffing is suggested in the right perihilar region, where there is added density. No other focal opacity. No large effusion or pneumothorax. Degenerative changes of the thoracic spine. Upper abdomen normal. IMPRESSION: 1. Added density in the right perihilar region could relate to bronchial wall thickening or peribronchial vascular infiltrate. This is not typical for pneumonia or edema. The appearance may in part relate to patient rotation and portable view. Consider PA and lateral views for better assessment. Electronically signed by: Noam Araya M.D. 01/14/2019 7:17 PM ECG Data Attestation: I personally reviewed and interpreted this ECG as follows: Indication: SOB/dyspnea Rate (beats per minute): 107 Rhythm: sinus tachycardia Findings: + other (Normal axis, normal intervals, severe baseline artifact); no ST depression and no ST elevation Blood Pressure Blood Pressure Findings: Elevated blood pressure Blood Pressure Disposition: Referred to patients primary care provider MDM Narrative Patient here initially ill-appearing with significant work of breathing and was emergently placed on BiPAP, started on continuous DuoNeb, given IV steroids and IV magnesium his breathing. Patient with a history of prior respiratory failure, history of COPD, and history of prior pneumonia. Patient began to respond and appeared improved with decreased work of breathing, decreased accessory muscle use, and was able to speak in short phrases compared to the initial 1 word answers. Patient was afebrile, and I do not suspect bacteremia/sepsis at this time. I feel this is more likely a COPD exacerbation in this patient. Patient was covered with antibiotics due to his history and risk. Case was discussed with hospitalist for additional evaluation management. No evidence of cardiac etiology, I do not suspect ACS, tamponade, pericardial effusion. I do not suspect PE. Impression & Plan Acute dyspnea, COPD (chronic obstructive pulmonary disease), Hypoxia, Atrial tachycardia Critical Care Time Critical Care Time: Yes Total Critical Care Time: 45 Critical care of 45 min performed to assess and manage high likelihood of life- threatening respiratory distress, involving labs and chest x-ray performed with assessment to evaluation respiratory distress with frequent reassessment. This time includes bedside time, treatment discussions with patient/family/consultants, documentation time and excludes procedure time. Discharge Plan Visit Data *Final* Discharge Date/Time: 01/14/19 22:43 Chief Complaint: Shortness of Breath/Dyspnea Stated Complaint: SOB ED Provider: Sylvia Enciso Discharge Problem: Acute dyspnea, COPD (chronic obstructive pulmonary disease), Hypoxia, Atrial tachycardia Patient Disposition: Admitted As Inpatient Condition: Fair Discharge Instructions Interventions: ED Discharge Assessment Last Done: 01/14/19 22:43 The scribe's documentation has been prepared under my direction and personally reviewed by me in its entirety. I confirm that the note above accurately reflects all work, treatment, procedures, and medical decision making performed by me.
[2019-01-14 22:09] LABS: Influenza A virus by PCR Neg for Influ A (Neg); Influenza B virus by PCR Neg for Influ B (Neg)
[2019-01-14 23:02] LABS: Partial Thromboplastin Ratio 0.9; Partial Thromboplastin Time 23.9 Seconds (21.0-31.0)
[2019-01-14] MEDS ORDERED: GLUCOSE 40% GEL 15 GM TUBE PO PRN (23:37)
[2019-01-14] MEDS ORDERED: DEXTROSE 50% 50 ML SYRINGE IV PRN (23:37)
[2019-01-14] MEDS ORDERED: CARBOHYDRATES FOR HYPOGLYCEMIA PO PRN (23:37)
[2019-01-14] MEDS ORDERED: TRAMADOL HCL 50 MG TABLET PO PRN (23:37)
[2019-01-14] MEDS ORDERED: GLUCOSE 10 TABS/TUBE PO PRN (23:37)
[2019-01-14] MEDS ORDERED: GLUCAGON FOR INJ 1 MG VIAL SQ PRN (23:37)
[2019-01-14] MEDS ORDERED: PROMETHAZINE HCL 12.5 MG in SODIUM CHLORIDE 0.9% 50 ML IV PRN (23:37)
[2019-01-15] MEDS ORDERED: AMPICILLIN/SULBACTAM SOD 3,000 MG in 0.9 % SODIUM CHLORIDE 100 ML IV STA (00:28)
[2019-01-15] MEDS ORDERED: INSULIN GLARGINE SOLOSTAR 100 UNITS/ML 3 ML PEN SQ STA (00:53)
[2019-01-15] MEDS ORDERED: XOPENEX/ATROVENT 1.25mg/0.5MG NEB COMBO NEB SCH (01:00)
[2019-01-15] MEDS: IPRATROPIUM BROMIDE NEB SOLN 0.02% 2.5 ML VIAL INH SCH ×4 (01:46→19:21)
[2019-01-15] MEDS: LEVALBUTEROL 1.25MG/0.5ML NEB INH SCH ×4 (01:46→19:21)
[2019-01-15 03:08] LABS: Hematocrit (blood only) 33.9 % (42-52); Hemoglobin 10.5 g/dL (14.0-18.0); Mean Corpuscular Volume 76.7 fL (80-100); Mean Platelet Volume 9.5 fL (7.4-10.4); Platelet Count 181 K/uL (130-400); RDW Coefficient of Variation 18.2 % (11.5-14.5); RDW Standard Deviation 51.5 fL (36.4-46.3); Red Blood Count 4.42 M/uL (4.7-6.1)
[2019-01-15 03:27] LABS: BUN Creatinine Ratio 16.2 (10-20); Calcium 8.6 mg/dl (8.5-10.1); Est GFR (African American) 64.1; Est GFR (Non-African American) 55.3; Potassium 4.3 mmol/L (3.5-5.1)
[2019-01-15 03:28] LABS: Basophils # (auto) 0.01 K/uL (0-0.2); Basophils % (auto) 0.1 %; Hypochromasia Present; Immature Granulocytes # (auto) 0.11 K/uL (0.00-0.02); Immature Granulocytes % (auto) 0.6 %; Lymphocytes % (auto) 2.4 %; Monocytes # (auto) 0.59 K/uL (0.11-0.59); Monocytes % (auto) 3.5 %; Neutrophils # (auto) 15.89 K/uL (1.4-6.5); Neutrophils % (auto) 93.4 %; Ovalocytes 1+
[2019-01-15] MEDS ORDERED: SODIUM CHLORIDE 0.9% 1000ML 1,000 ML IV ONE (04:15)
[2019-01-15] MEDS ORDERED: AMPICILLIN/SULBACTAM CONSULT ACTIVE PRN (04:36)
[2019-01-15] MEDS ORDERED: DOXYCYCLINE HYCLATE 100 MG in DEXTROSE 5% 100 ML IV STA (05:37)
[2019-01-15] MEDS ORDERED: LACTATED RINGER'S 1,000 ML IV ONE ×2 (05:40)
[2019-01-15] MEDS ORDERED: PIPERACILL/TAZOBAC CONSULT ACTIVE PRN (05:46)
--- NOTE | 2019-01-15 05:49 | Hospitalist Progress Note ---
Date of Service January 15, 2019 Subjective Made aware by RN of lactic acid of 4.5. SBP currently 130s, cardiac rate 70s as per RN CT chest initial read groundglass opacities right lung. Primary consideration pneumonia. AP Severe sepsis SIRS plus lactic acid elevation secondary to CAP, possible aspiration Change antibiotic regimen to Doxycycline, Zosyn IVF, follow lactic acid Will relay to AM provider. Results & Data Vital Signs (Past 12 Hours) Vital Signs Temp Pulse Pulse Resp BP BP Pulse Ox 01/15/19 04:00 36.6 C 72 22 135/81 99 01/15/19 01:46 79 16 98 01/14/19 23:15 36.6 C 95 H 24 123/73 95 01/14/19 22:43 109 H 20 114/78 97 01/14/19 21:30 110 H 20 140/65 96 01/14/19 19:23 100 H 20 117/95 100 01/14/19 19:18 101 H 21 94 01/14/19 19:10 108 H 22 94 01/14/19 18:42 37.4 C 110 H 22 153/118 H 92
[2019-01-15] MEDS: LEVOTHYROXINE SODIUM 50 MCG TABLET PO SCH (05:55)
[2019-01-15 06:21] LABS: Appearance Urine Clear (Clear); Bilirubin Urine Negative (Negative); Blood Urine Negative (Negative); Color Urine Yellow; Glucose Urine UA Trace (Negative); Ketones Urine Negative (Negative); Leukocyte Esterase Urine Negative (Negative); Nitrite Urine Negative (Negative); Protein Urine Negative (Negative); Specific Gravity Urine 1.018 (1.000-1.030); Urobilinogen Urine Negative (Negative)
[2019-01-15 06:41] LABS: Amphetamines+Metham, Urine Neg (Neg); Barbiturates, Urine Neg (Neg); Benzodiazepine, Urine Neg (Neg); Cocaine, Urine Neg (Neg); MDMA (Ecstacy), Urine Neg (Neg); Methadone, Urine Pos (Neg); Opiate, Urine Pos (Neg); Phencyclidine, Urine Neg (Neg)
--- NOTE | 2019-01-15 06:41 | CT Scan Report ---
CT chest wo con CT DOSE: 812.27 mGycm HISTORY: Dyspnea cough, sob TECHNIQUE: Multiaxial CT images of the chest were performed without contrast. A dose lowering techni que was utilized adhering to the principles of ALARA. COMPARISON: 02/13/2017 FINDINGS: Stable mild to moderate prominence ascending aorta at 4.4 cm. Moderate atherosclerotic hebert ge remainder of the thoracic aorta. Interval development of a parenchymal infiltrate right lower lobe. Minimal infiltrative changes also noted in the right middle lung region. Minimal groundglass changes involving the right upper lung. Left lung is considered clear. IMPRESSION: 1. Diffuse parenchymal infiltrative change right hemithorax with superimposed right basilar atelectat ic change.. 2. Left lung is considered clear. 3. Stable prominence ascending aorta at 4.4 cm. This is unchanged from the prior exam. The above report was generated using voice recognition software. It may contain grammatical, syntax or spelling errors. Electronically signed by: Ar Sarabia M.D. 01/15/2019 6:40 AM
[2019-01-15 07:02] LABS: Estimated Average Glucose 174 mg/dl; Hemoglobin A1C 7.7 % (4.5-5.6)
[2019-01-15] MEDS ORDERED: AMPICILLIN/SULBACTAM SOD 3,000 MG in 0.9 % SODIUM CHLORIDE 100 ML IV SCH (08:00)
[2019-01-15] MEDS: INSULIN GLARGINE SOLOSTAR 100 UNITS/ML 3 ML PEN SC SCH ×2 (08:09→08:26)
[2019-01-15] MEDS: INSULIN ASPART 100 UNITS/ML 3 ML PEN SC SCH ×5 (08:09→21:30)
[2019-01-15] MEDS: predniSONE 20 MG TAB PO SCH (08:10)
[2019-01-15] MEDS: LOSARTAN POTASSIUM 50 MG TAB PO SCH (08:10)
[2019-01-15] MEDS: ASPIRIN 81 MG ECTAB PO SCH (08:10)
[2019-01-15] MEDS: TAMSULOSIN HCL 0.4 MG CAP PO SCH (08:10)
[2019-01-15] MEDS: GABAPENTIN 600 MG TAB PO SCH ×3 (08:10→20:35)
[2019-01-15] MEDS: DULOXETINE HCL 60 MG CAP PO SCH (08:10)
[2019-01-15] MEDS: CYANOCOBALAMIN 500 MCG TABLET (VITAMIN B-12) PO SCH (08:10)
[2019-01-15] MEDS: ENOXAPARIN INJ 40 MG/0.4 ML SYR SQ SCH ×2 (08:11→08:27)
[2019-01-15] MEDS: LACTOBACILLUS ACIDOPHILUS (FLORANEX) TAB PO SCH ×2 (08:11→20:35)
[2019-01-15] MEDS: PANTOprazole 40 MG TAB PO SCH (08:11)
[2019-01-15] MEDS: METHADONE HCL 10 MG TAB PO SCH ×2 (08:20→20:42)
[2019-01-15] MEDS: PIPERACILLIN/TAZOBACTAM 4.5 GM in DEXTROSE 5% 100 ML IV SCH ×2 (08:20→16:39)
[2019-01-15] MEDS ORDERED: PHARMACY GLYCEMIC MGMT CONSULT PRN (09:26)
--- NOTE | 2019-01-15 09:48 | Hospitalist Progress Note ---
Date of Service January 15, 2019 Assessment & Plan (1) Acute hypoxemic respiratory failure: (2) Pneumonia involving right lun-year-old male with history of COPD, diabetes, hypertension, chronic pain syndrome on methadone, polymyalgia rheumatica on chronic prednisone, Other problems noted below presenting with progressive shortness of breath and coughing. Acute hypoxic respiratory failure secondary to pneumonia, community-acquired versus aspiration, with possible severe sepsis Blood cultures: Pending Afebrile, remains at 4 L of nasal cannula WBC 17,000, lactic acid 3.6 CT chest: IMPRESSION: 1. Diffuse parenchymal infiltrative change right hemithorax with superimposed right basilar atelectatic change.. 2. Left lung is considered clear. 3. Stable prominence ascending aorta at 4.4 cm. This is unchanged from the prior exam. Continue Zosyn plus doxycycline IV day #1 Resume IV NSS at 100 cc/h, repeat lactic acid and PRP at 8 PM, monitor Nebs scheduled Prednisone 40 mg p.o. daily (usually prednisone 10 mg twice a day), monitor blood sugars closely Neurologist consulted, appreciate recommendations Speech therapy consult DM 2 insulin requiring, reasonable control as of recent outpatient hemoglobin A1c of 7.7 last September 2018 Pharmacy glycemic control consulted Hypertension, stable Continue losartan chronic pain/fibromyalgia on methadone, some signs of opioid toxicity given episodic myoclonic jerks Monitor closely polymyalgia rheumatica on chronic steroid therapy Prednisone 40 mg p.o. daily for possible mild COPD exacerbation, (usually pred nisone 10 mg twice a day), monitor blood sugars closely history of CVA as per records Continue aspirin chronic anemia, hemoglobin at baseline hx DEMETRIS (CPAP intolerance) past tobacco abuse DVT prophylaxis. Lovenox subcu Full code as per patient . Subjective Follow-up for possible severe sepsis, pneumonia, possible respiratory failure Seen resting in bed, comfortable, no distress on 4 L of nasal cannula States he feels improved compared to yesterday No dyspnea while on the nasal cannula, coughing less, unable to expectorate Denies fevers or chills overnight No chest pain, palpitations, dizziness, headache, abdominal pain, nausea vomiting No other symptoms Review of Systems Review of Systems: All systems reviewed & are unremarkable except as noted in HPI & below Physical Exam Physical Exam: General- oriented x 3, not in distress, speaks in sentences with no effort or accessory muscle use Head- atraumatic Eyes- PERRL, EOMI, anicteric ENT- oropharynx clear Neck- supple, no JVD, no adenopathy, no thyromegaly; carotids +2/2, no bruits appreciated Lungs-positive crackles on the right mid to base, no wheezing, clear on the left, good air entry bilaterally Heart- normal rate, regular rhythm; no murmur, no gallop, no rub appreciated Abdomen- normal bowel sounds, nondistended, soft, nontender, no masses or hepatosplenomegaly Extremities-positive mild edema of the right lower extremity, no erythema/warmth/tenderness, left lower extremity essentially normal Neuro- alert, oriented x 3; CN 2-12 grossly intact; motor 5/5 bilaterally;sensation 100% on all extremities; no other gross focal neurologic deficits Skin- warm & dry Results & Data Vital Signs (Past 12 Hours) Vital Signs Temp Pulse Pulse Resp BP BP Pulse Ox 01/15/19 09:00 81 01/15/19 07:31 36.6 C 75 20 172/70 H 99 01/15/19 07:06 82 20 97 01/15/19 04:00 36.6 C 72 22 135/81 99 01/15/19 01:46 79 16 98 01/14/19 23:15 36.6 C 95 H 24 123/73 95 01/14/19 22:43 109 H 20 114/78 97 Laboratory Results Laboratory Results - last 24 hr 01/14/19 01/14/19 01/14/19 18:59 18:59 19:10 WBC 15.42 H RBC 5.13 Hgb 12.5 L Hct 39.4 L MCV 76.8 L MCH 24.4 L MCHC 31.7 L RDW Std Deviation 51.7 H RDW Coeff of Don 18.4 H Plt Count 223 MPV 10.4 Immature Gran % (Auto) 0.8 Neut % (Auto) 84.4 Lymph % (Auto) 9.5 [place] % (Auto) 4.7 Eos % (Auto) 0.5 Baso % (Auto) 0.1 Immature Gran # (Auto) 0.13 H Neut # (Auto) 13.01 H Lymph # (Auto) 1.47 [place] # (Auto) 0.72 H Eos # (Auto) 0.08 Baso # (Auto) 0.01 Hypochromasia Ovalocytes APTT PTT Ratio POC pH 7.39 POC pCO2 39 POC pO2 72 L POC HCO3 24 POC Total CO2 25 POC Base Excess -1.0 POC ABG O2 Sat 94.0 Sodium 137 Potassium 4.2 Chloride 102 Carbon Dioxide 27 Anion Gap 8.0 BUN 20 H Creatinine 1.17 Est Cr Clr Drug Dosing 76.9 Est GFR ( Amer) 68.8 Est GFR (Non-Af Amer) 59.4 BUN/Creatinine Ratio 16.8 Glucose 114 H POC Glucose Estimat Average Glucose Hemoglobin A1c Lactate Calcium 9.5 Magnesium 1.6 L Total Bilirubin 0.5 AST 13 L ALT 17 Alkaline Phosphatase 76 Troponin I < 0.015 NT-Pro-B Natriuret Pep 80 Total Protein 7.1 Albumin 2.7 L Globulin 4.4 H Albumin/Globulin Ratio 0.6 L Lipase 72 L TSH 1.640 Specimen Hemolysis Urine Color Urine Appearance Urine pH Ur Specific [place] Urine Protein Urine Glucose (UA) Urine Ketones Urine Blood Urine Nitrite Urine Bilirubin Urine Urobilinogen Ur Leukocyte Esterase Urine Opiates Screen U Codeine Confrm GC/MS Ur Morphine (GC/MS) Ur Hydrocodone (GC/MS) Ur Norhydrocodone Ur Noroxycodone Urine Oxycodone (GC/MS) U Oxymorphone GC/MS Ur Methadone, Qual U Methadone Metabolites Ur Methadone Confirm Ur Hydromorphone (GC/MS) Urine Barbiturates Ur Phencyclidine (PCP) U Amphetamin/Meth Scrn MDMA (Ecstasy) Screen U Benzodiazepines Scrn Ur Cocaine Metabolite U Marijuana (THC) Screen Influenza Type A (PCR) Influenza Type B (PCR) 01/14/19 01/14/19 01/14/19 21:20 22:31 22:43 WBC RBC Hgb Hct MCV MCH MCHC RDW Std Deviation RDW Coeff of Don Plt Count MPV Immature Gran % (Auto) Neut % (Auto) Lymph % (Auto) [place] % (Auto) Eos % (Auto) Baso % (Auto) Immature Gran # (Auto) Neut # (Auto) Lymph # (Auto) [place] # (Auto) Eos # (Auto) Baso # (Auto) Hypochromasia Ovalocytes APTT 23.9 PTT Ratio 0.9 POC pH POC pCO2 POC pO2 POC HCO3 POC Total CO2 POC Base Excess POC ABG O2 Sat Sodium Potassium Chloride Carbon Dioxide Anion Gap BUN Creatinine Est Cr Clr Drug Dosing Est GFR ( Amer) Est GFR (Non-Af Amer) BUN/Creatinine Ratio Glucose POC Glucose Estimat Average Glucose Hemoglobin A1c Lactate 3.1 H* Calcium Magnesium Total Bilirubin AST ALT Alkaline Phosphatase Troponin I NT-Pro-B Natriuret Pep Total Protein Albumin Globulin Albumin/Globulin Ratio Lipase TSH Specimen Hemolysis Urine Color Urine Appearance Urine pH Ur Specific [place] Urine Protein Urine Glucose (UA) Urine Ketones Urine Blood Urine Nitrite Urine Bilirubin Urine Urobilinogen Ur Leukocyte Esterase Urine Opiates Screen U Codeine Confrm GC/MS Ur Morphine (GC/MS) Ur Hydrocodone (GC/MS) Ur Norhydrocodone Ur Noroxycodone Urine Oxycodone (GC/MS) U Oxymorphone GC/MS Ur Methadone, Qual U Methadone Metabolites Ur Methadone Confirm Ur Hydromorphone (GC/MS) Urine Barbiturates Ur Phencyclidine (PCP) U Amphetamin/Meth Scrn MDMA (Ecstasy) Screen U Benzodiazepines Scrn Ur Cocaine Metabolite U Marijuana (THC) Screen Influenza Type A (PCR) Neg for Influ A Influenza Type B (PCR) Neg for Influ B 01/15/19 01/15/19 01/15/19 01:10 03:00 03:00 WBC RBC Hgb Hct MCV MCH MCHC RDW Std Deviation RDW Coeff of Don Plt Count MPV Immature Gran % (Auto) Neut % (Auto) Lymph % (Auto) [place] % (Auto) Eos % (Auto) Baso % (Auto) Immature Gran # (Auto) Neut # (Auto) Lymph # (Auto) [place] # (Auto) Eos # (Auto) Baso # (Auto) Hypochromasia Ovalocytes APTT PTT Ratio POC pH POC pCO2 POC pO2 POC HCO3 POC Total CO2 POC Base Excess POC ABG O2 Sat Sodium 137 Potassium 4.3 Chloride 102 Carbon Dioxide 27 Anion Gap 8.0 BUN 20 H Creatinine 1.24 Est Cr Clr Drug Dosing 72.0 Est GFR ( Amer) 64.1 Est GFR (Non-Af Amer) 55.3 BUN/Creatinine Ratio 16.2 Glucose 211 H POC Glucose 239 H Estimat Average Glucose Hemoglobin A1c Lactate 4.5 H* Calcium 8.6 Magnesium 2.0 Total Bilirubin AST ALT Alkaline Phosphatase Troponin I NT-Pro-B Natriuret Pep Total Protein Albumin Globulin Albumin/Globulin Ratio Lipase TSH Specimen Hemolysis Urine Color Urine Appearance Urine pH Ur Specific [place] Urine Protein Urine Glucose (UA) Urine Ketones Urine Blood Urine Nitrite Urine Bilirubin Urine Urobilinogen Ur Leukocyte Esterase Urine Opiates Screen U Codeine Confrm GC/MS Ur Morphine (GC/MS) Ur Hydrocodone (GC/MS) Ur Norhydrocodone Ur Noroxycodone Urine Oxycodone (GC/MS) U Oxymorphone GC/MS Ur Methadone, Qual U Methadone Metabolites Ur Methadone Confirm Ur Hydromorphone (GC/MS) Urine Barbiturates Ur Phencyclidine (PCP) U Amphetamin/Meth Scrn MDMA (Ecstasy) Screen U Benzodiazepines Scrn Ur Cocaine Metabolite U Marijuana (THC) Screen Influenza Type A (PCR) Influenza Type B (PCR) 01/15/19 01/15/19 01/15/19 03:00 03:00 04:54 WBC 17.00 H RBC 4.42 L Hgb 10.5 L Hct 33.9 L MCV 76.7 L MCH 23.8 L MCHC 31.0 L RDW Std Deviation 51.5 H RDW Coeff of Don 18.2 H Plt Count 181 MPV 9.5 Immature Gran % (Auto) 0.6 Neut % (Auto) 93.4 Lymph % (Auto) 2.4 [place] % (Auto) 3.5 Eos % (Auto) 0.0 Baso % (Auto) 0.1 Immature Gran # (Auto) 0.11 H Neut # (Auto) 15.89 H Lymph # (Auto) 0.40 L [place] # (Auto) 0.59 Eos # (Auto) 0.00 Baso # (Auto) 0.01 Hypochromasia Present Ovalocytes 1+ APTT PTT Ratio POC pH POC pCO2 POC pO2 POC HCO3 POC Total CO2 POC Base Excess POC ABG O2 Sat Sodium Potassium Chloride Carbon Dioxide Anion Gap BUN Creatinine Est Cr Clr Drug Dosing Est GFR ( Amer) Est GFR (Non-Af Amer) BUN/Creatinine Ratio Glucose POC Glucose Estimat Average Glucose 174 Hemoglobin A1c 7.7 H Lactate Calcium Magnesium Total Bilirubin AST ALT Alkaline Phosphatase Troponin I NT-Pro-B Natriuret Pep Total Protein Albumin Globulin Albumin/Globulin Ratio Lipase TSH Specimen Hemolysis Urine Color Yellow Urine Appearance Clear Urine pH 5.0 Ur Specific [place] 1.018 Urine Protein Negative Urine Glucose (UA) Trace H Urine Ketones Negative Urine Blood Negative Urine Nitrite Negative Urine Bilirubin Negative Urine Urobilinogen Negative Ur Leukocyte Esterase Negative Urine Opiates Screen U Codeine Confrm GC/MS Ur Morphine (GC/MS) Ur Hydrocodone (GC/MS) Ur Norhydrocodone Ur Noroxycodone Urine Oxycodone (GC/MS) U Oxymorphone GC/MS Ur Methadone, Qual U Methadone Metabolites Ur Methadone Confirm Ur Hydromorphone (GC/MS) Urine Barbiturates Ur Phencyclidine (PCP) U Amphetamin/Meth Scrn MDMA (Ecstasy) Screen U Benzodiazepines Scrn Ur Cocaine Metabolite U Marijuana (THC) Screen Influenza Type A (PCR) Influenza Type B (PCR) 01/15/19 01/15/19 01/15/19 04:54 04:54 08:04 WBC RBC Hgb Hct MCV MCH MCHC RDW Std Deviation RDW Coeff of Don Plt Count MPV Immature Gran % (Auto) Neut % (Auto) Lymph % (Auto) [place] % (Auto) Eos % (Auto) Baso % (Auto) Immature Gran # (Auto) Neut # (Auto) Lymph # (Auto) [place] # (Auto) Eos # (Auto) Baso # (Auto) Hypochromasia Ovalocytes APTT PTT Ratio POC pH POC pCO2 POC pO2 POC HCO3 POC Total CO2 POC Base Excess POC ABG O2 Sat Sodium Potassium Chloride Carbon Dioxide Anion Gap BUN Creatinine Est Cr Clr Drug Dosing Est GFR ( Amer) Est GFR (Non-Af Amer) BUN/Creatinine Ratio Glucose POC Glucose Estimat Average Glucose Hemoglobin A1c Lactate 2.9 H* Calcium Magnesium Total Bilirubin AST ALT Alkaline Phosphatase Troponin I NT-Pro-B Natriuret Pep Total Protein Albumin Globulin Albumin/Globulin Ratio Lipase TSH Specimen Hemolysis Urine Color Urine Appearance Urine pH Ur Specific [place] Urine Protein Urine Glucose (UA) Urine Ketones Urine Blood Urine Nitrite Urine Bilirubin Urine Urobilinogen Ur Leukocyte Esterase Urine Opiates Screen Pos H U Codeine Confrm GC/MS Pending Ur Morphine (GC/MS) Pending Ur Hydrocodone (GC/MS) Pending Ur Norhydrocodone Pending Ur Noroxycodone Pending Urine Oxycodone (GC/MS) Pending U Oxymorphone GC/MS Pending Ur Methadone, Qual Pos H U Methadone Metabolites Pending Ur Methadone Confirm Pending Ur Hydromorphone (GC/MS) Pending Urine Barbiturates Neg Ur Phencyclidine (PCP) Neg U Amphetamin/Meth Scrn Neg MDMA (Ecstasy) Screen Neg U Benzodiazepines Scrn Neg Ur Cocaine Metabolite Neg U Marijuana (THC) Screen Neg Influenza Type A (PCR) Influenza Type B (PCR) 01/15/19 01/15/19 01/15/19 08:06 11:59 13:53 WBC RBC Hgb Hct MCV MCH MCHC RDW Std Deviation RDW Coeff of Don Plt Count MPV Immature Gran % (Auto) Neut % (Auto) Lymph % (Auto) [place] % (Auto) Eos % (Auto) Baso % (Auto) Immature Gran # (Auto) Neut # (Auto) Lymph # (Auto) [place] # (Auto) Eos # (Auto) Baso # (Auto) Hypochromasia Ovalocytes APTT PTT Ratio POC pH POC pCO2 POC pO2 POC HCO3 POC Total CO2 POC Base Excess POC ABG O2 Sat Sodium Potassium Chloride Carbon Dioxide Anion Gap BUN Creatinine Est Cr Clr Drug Dosing Est GFR ( Amer) Est GFR (Non-Af Amer) BUN/Creatinine Ratio Glucose POC Glucose 160 H 153 H Estimat Average Glucose Hemoglobin A1c Lactate 3.6 H* Calcium Magnesium Total Bilirubin AST ALT Alkaline Phosphatase Troponin I NT-Pro-B Natriuret Pep Total Protein Albumin Globulin Albumin/Globulin Ratio Lipase TSH Specimen Hemolysis Urine Color Urine Appearance Urine pH Ur Specific [place] Urine Protein Urine Glucose (UA) Urine Ketones Urine Blood Urine Nitrite Urine Bilirubin Urine Urobilinogen Ur Leukocyte Esterase Urine Opiates Screen U Codeine Confrm GC/MS Ur Morphine (GC/MS) Ur Hydrocodone (GC/MS) Ur Norhydrocodone Ur Noroxycodone Urine Oxycodone (GC/MS) U Oxymorphone GC/MS Ur Methadone, Qual U Methadone Metabolites Ur Methadone Confirm Ur Hydromorphone (GC/MS) Urine Barbiturates Ur Phencyclidine (PCP) U Amphetamin/Meth Scrn MDMA (Ecstasy) Screen U Benzodiazepines Scrn Ur Cocaine Metabolite U Marijuana (THC) Screen Influenza Type A (PCR) Influenza Type B (PCR)
--- NOTE | 2019-01-15 11:32 | Ultrasound Report ---
US venous doppler LE RT CLINICAL HISTORY: r/o dvt PAIN. EDEMA. COMPARISON STUDY: No previous studies for comparison. FINDINGS: Real-time and color flow Doppler imaging were performed. Flow was seen within the femoral, popliteal and calf veins with no intraluminal thrombus demonstrated. The saphenous vein is patent. IMPRESSION: No evidence of deep venous thrombosis. The above report was generated using voice recognition software. It may contain grammatical, syntax or spelling errors. Electronically signed by: Ar Sarabia M.D. 01/15/2019 11:30 AM
--- NOTE | 2019-01-15 12:13 | Pulmonary Consultation ---
Date of Consultation January 15, 2019 Assessment & Plan (1) Acute hypoxemic respiratory failure: The patient apparently is much better today than he had been. He seems comfortable and is oxygenating well peer the CAT scan is much more abnormal than one would expect just from the chest x-ray alone. The possibility of aspiration needs to be considered. He had previously been admitted in September with a right- sided pneumonia. He was admitted in October with exacerbation COPD. Our suggestions are the followin. Agree with Zosyn and doxycycline for antibiotic coverage 2. Consideration given to video swallow evaluation when patient is a little better 3. Agree with the prednisone 40 mg daily and if he improves rapidly suggest taper fairly readily back to his baseline dose. 4. While the patient is in the hospital we could give him trials of BiPAP to see if he could tolerate it. 5. Could consider nebulizer for home care if indeed he does not have one already. (2) Pneumonia involving right lung: (3) COPD (chronic obstructive pulmonary disease): COPD type: COPD with acute exacerbation Qualified Code(s): J44.1 - Chronic obstructive pulmonary disease with (acute) exacerbation (4) Sleep apnea: History of Present Illness Attending Physician: Sharath Hinds MD History of Present Illness The patient is a 78-year-old male with a history of COPD. He himself is not a good historian per he apparently has had breathing problems for many years. He lives at home with his . He has caregiver for 11 hours of the day. The patient is essentially bedridden. He tells me that he is not walked for quite some time. The exact etiology of that was not clear to me. His was noticing yesterday that he required higher concentrations of oxygen. He also was somewhat more short of breath the patient tells me that he does not wear oxygen regularly but he has it at home. Review of prior records however suggested that he wore oxygen at nighttime regularly. As I mentioned he is not a reliable historian. He has just a dry cough. He states he does not bring up any phlegm. He denies chills fevers or sweats. He said no chest pains. While in the ER the patient was given IV fluids and levofloxacin. He was also given Narcan 1 dose. He was given methylprednisolone. The patient states that he cannot recall anything that happened to him when he was first brought to the hospital. He was actually put on BiPAP for a period of time. He does carry a history of having had obstructive sleep apnea but intolerant of CPAP or BiPAP. The patient was a very long-term smoker. He quit 15 years ago. He states he smoked 2 packs/day or more for 55 years. 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 He did not have any significant dust fume or chemical exposure. At the present time he feels much better. He states he is not short of breath today. He cannot recall wearing the BiPAP. It was not clear to me if he has a nebulizer at home or not. The patient said he does not but in some of the notes I saw it suggested that he might. There was no family members here. Para the patient denies headache or dizziness. He does state that he is almost blind. Denies sinus problems. Denies reflux or heartburn. Appetite is too good. He does complain of diarrhea. He said this is because he is lactose deficient. Denies difficulty urinating. Allergies Allergy/AdvReac Type Severity Reaction Status Date / Time Iodinated Contrast- Oral and Allergy Intermediate HIVES Verified 10/22/18 13:15 IV Dye lactose AdvReac Gastrointestinal Unverified 01/14/19 21:00 Upset Home Medications Home Medications Medication Instructions Recorded Confirmed Type cholecalciferol (vitamin D3) 2,000 unit PO QAM #0 06/05/16 01/14/19 History duloxetine 60 mg PO QAM #0 06/05/16 01/14/19 History aspirin [Ecotrin Low Strength] 81 mg PO QAM #0 07/03/16 01/14/19 History omeprazole 20 mg PO QAM #0 07/03/16 01/14/19 History prednisone 10 mg PO BID #0 tab 08/29/16 01/14/19 History donepezil 5 mg PO HS #0 10/11/16 01/14/19 History levothyroxine 50 mcg PO 4XWK #0 10/11/16 01/14/19 History Lactobacillus acidophilus 1 cap PO BID #0 01/08/17 01/14/19 History cyanocobalamin (vitamin B-12) 1,000 mcg PO QAM #0 01/08/17 01/14/19 History gabapentin 600 mg PO TID #0 01/08/17 01/14/19 History Krill Oil (Vilonia 3 and 6) 1 cap PO DAILY #0 01/01/18 01/14/19 History celecoxib 200 mg PO QAM #0 cap 01/01/18 01/14/19 History methadone 30 mg PO BID #0 01/01/18 01/14/19 History Combivent Respimat 1 puff INHALATION QID PRN 09/23/18 01/14/19 History fluticasone propionate 1 spray INTRANASAL DAILY PRN 09/23/18 01/14/19 History losartan-hydrochlorothiazide 1 tab PO QAM 09/23/18 01/14/19 History amlodipine 5 mg PO DAILY PRN 10/22/18 01/14/19 History latanoprost 1 drp OPHTHALMIC (EYE) HS 10/22/18 01/14/19 History potassium chloride 20 meq PO BID 10/22/18 01/14/19 History tamsulosin 0.4 mg PO DAILY 10/22/18 01/14/19 History levothyroxine 25 mcg PO 3XWK 01/14/19 01/14/19 History Patient History Medical History Nocturnal hypoxemia (Chronic) CKD (chronic kidney disease), stage III (Chronic) Diabetes mellitus, type II (Chronic) Polymyalgia rheumatica (Chronic) Atrial tachycardia (Chronic) HTN (hypertension) (Chronic) Fibromyalgia (Chronic) CVA (cerebral infarction) (Chronic) residual R sided weakness COPD (chronic obstructive pulmonary disease) (Chronic) Sleep apnea (Chronic) CPAP/BiPAP intolerant Hypothyroidism (Chronic) PMR (polymyalgia rheumatica) (Chronic) Chronic pain syndrome (Chronic) FELICITA (iron deficiency anemia) (Chronic) Monoclonal gammopathy (Chronic) Surgical History History of cholecystectomy (Chronic) History of total left knee replacement (Chronic) S/P small bowel resection (Chronic) H/O hernia repair (Chronic) Family History Other No pertinent family history Social History Preferred Language: Argentine Communication Ability: Effective Visual Impairment: No Limitations Hearing Ability: Normal Director Organizational Required: No Beliefs That Will Affect Care: None marital status: Current Living Situation: Spouse Current Living Situation Comment: home with home health Other Information That Helps Us Care for You: No Feels Safe at Home: Yes Safety Concerns: Feels Safe At This Time Smoking Status: Former smoker Do You Dip or Chew Tobacco: No ; Second Hand Exposure: No ; Hx Alcohol Use: No Hx Substance Use: No Review of Systems Review of Systems: Negative except as noted in the history of present illness Physical Exam 2 Physical Exam: The patient is a 78-year-old male who was cooperative alert and oriented. He was in no distress at rest. Weight is listed as 136.3 kg with a B WV of 38.6. The patient looks like he is cushingoid. He is reportedly on prednisone 10 mg twice daily for an extended period of time. I am assuming this is because of polymyalgia rheumatica that was listed. Eye exam shows evidence of prior cataract surgery bilaterally. Nares are clear. Mouth exam shows a Mallampati grade 4 pharynx. He has a large neck. No lymph nodes palpable. There is a scar at the base of his neck which he stated was from parathyroid surgery. Cardiac rate 81/min. The rhythm was quite irregular. Blood pressure 172/70. Respiratory rate 20 breaths/min. Lung jha reveal decreased breath sounds. I did not hear any wheezes rales or rhonchi. Current saturation 99% on 5 L. Temperature today 36.6. Abdomen was obese. Bowel sounds were present. There was no tenderness to palpation or definite masses. Extremities reveals +2 edema of both lower extremities. He has numerous areas of ecchymosis on his arms and legs. No cyanosis or clubbing noted. Results & Data Vital Signs (Past 12 Hours) Vital Signs Temp Pulse Pulse Resp BP Pulse Ox 01/15/19 09:00 81 01/15/19 07:31 36.6 C 75 20 172/70 H 99 01/15/19 07:06 82 20 97 01/15/19 04:00 36.6 C 72 22 135/81 99 01/15/19 01:46 79 16 98 Laboratory Results CBC showed a white count of 17,000. Neutrophils were 93.4%. Hemoglobin 10.5. Platelets 181,000. Coags were unremarkable. Arterial blood gas showed a pH of 7.39 PCO2 39 PO2 72. Electrolytes show sodium 137 potassium 4.3 chloride 102 bicarb 27. BUN 20 with creatinine 1.24. Lactate was elevated at 4.5 on admission. Repeat last evening showed lactate 2.9. Blood cultures done yesterday are negative thus far. Diagnostic Findings CAT scan of the chest showed diffuse parenchymal infiltrates throughout the righ t lung with the primary infiltrate in the right lower lobe. There were minimal patchy infiltrates in the mid and upper lung field. The left lung was clear. The possibility of aspiration would be a consideration. Venous Doppler of the left leg was negative. PG Care Time/CCT Total # of Minutes Spent Total Time Spent with Patient: Total time spent is greater than 50% in coordination of care (as documented) at patient's floor/unit and/or counseling patient:
--- NOTE | 2019-01-15 12:54 | Pharmacy Report ---
Glycemic Control Consultation - Date of Service January 15, 2019 - Scope Scope: Glycemic Pharmacist consulted by Dr Hinds on 01/15/19 for glycemic control and to write orders per [facility] inpatient glycemic control protocol - Objective Weight: 136.3 kg Accuchecks BSG (last 24hrs): 01/14/19 01/15/19 01/15/19 18:59 01:10 03:00 Glucose 114 H 211 H POC Glucose 239 H 01/15/19 01/15/19 08:06 11:59 Glucose POC Glucose 160 H 153 H Laboratory Data (last 24hrs): 01/14/19 01/15/19 18:59 03:00 Potassium 4.2 4.3 Carbon Dioxide 27 27 Anion Gap 8.0 8.0 Creatinine 1.17 1.24 Est Cr Clr Drug Dosing 76.9 72.0 HbA1c: Hemoglobin A1c 7.7 % (4.5-5.6) H 01/15/19 03:00 - Recent Pertinent Medications Outpatient Anti-diabetic Regimen: * diet and exercise * A1c = 7.7 % 01/15/19 - Assessment & Plan Assessment & Plan: ASSESSMENT: * Mr Kong is a 78yo M unbeknownst to the pharmacy glycemic service. P/w COPD exacerbation (unsure of his GOLD classification) vs r/o PNA. He does not take any diabetes medications as an outpt. His A1C is 7.7%, this is likely close to his goal A1C ~7-<8%. * He is ordered a diet and tolerating it well. Po Prednisone 40mg QD is ordered. He does take prednisone 10mg PO for PMR. PLAN FOR INPATIENT GLYCEMIC CONTROL: * Basal insulin * none indicated at this juncture * Bolus insulin * NovoLog per scale ACHS or Q6hrs while NPO * Goal Range: Low 110 mg/dL - High 140 mg/dL * Correction Factor: 20 mg/dL/unit * Nutritional / Prandial insulin per carb ratio of 1 unit per 7 grams CHO consumed * Please note that the plan above was derived based on current level of insulin resistance and hospital stress. These recommendations are appropriate for inpatient admission only. Plan of care upon discharge will need to be reassessed to avoid potential outpatient hypo/hyperglycemia. Thank you.
[2019-01-15] MEDS: SODIUM CHLORIDE 0.9% 1000ML 1,000 ML IV SCH (14:42)
[2019-01-15] MEDS: DOXYCYCLINE HYCLATE 100 MG CAP PO SCH (17:29)
[2019-01-15 20:34] LABS: BUN Creatinine Ratio 13.2 (10-20); Calcium 8.9 mg/dl (8.5-10.1); Creatinine Clr Calc Pharmacy 59.6 ml/min; Potassium 3.7 mmol/L (3.5-5.1)
[2019-01-15] MEDS: DONEPEZIL HCL 5 MG TAB PO SCH (20:35)
[2019-01-15] MEDS: LATANOPROST 0.005% OP SOLN 2.5 ML BTL OP SCH (20:35)
[2019-01-15] MEDS ORDERED: INSULIN GLARGINE SOLOSTAR 100 UNITS/ML 3 ML PEN SC SCH (21:00)
[2019-01-16] MEDS: PIPERACILLIN/TAZOBACTAM 4.5 GM in DEXTROSE 5% 100 ML IV SCH ×4 (00:09→23:39)
[2019-01-16] MEDS: IPRATROPIUM BROMIDE NEB SOLN 0.02% 2.5 ML VIAL INH SCH ×4 (01:01→18:51)
[2019-01-16] MEDS: LEVALBUTEROL 1.25MG/0.5ML NEB INH SCH ×4 (01:02→18:51)
[2019-01-16] MEDS: SODIUM CHLORIDE 0.9% 1000ML 1,000 ML IV SCH ×2 (01:28→15:27)
[2019-01-16] MEDS: DOXYCYCLINE HYCLATE 100 MG CAP PO SCH ×2 (05:15→17:30)
[2019-01-16] MEDS ORDERED: LEVOTHYROXINE SODIUM 25 MCG TABLET PO SCH (06:30)
[2019-01-16] MEDS: LACTOBACILLUS ACIDOPHILUS (FLORANEX) TAB PO SCH ×2 (08:08→20:40)
[2019-01-16] MEDS: LOSARTAN POTASSIUM 50 MG TAB PO SCH (08:09)
[2019-01-16] MEDS: predniSONE 20 MG TAB PO SCH (08:09)
[2019-01-16] MEDS: PANTOprazole 40 MG TAB PO SCH (08:09)
[2019-01-16] MEDS: CYANOCOBALAMIN 500 MCG TABLET (VITAMIN B-12) PO SCH (08:10)
[2019-01-16] MEDS: DULOXETINE HCL 60 MG CAP PO SCH (08:10)
[2019-01-16] MEDS: GABAPENTIN 600 MG TAB PO SCH ×3 (08:10→20:40)
[2019-01-16] MEDS: ASPIRIN 81 MG ECTAB PO SCH (08:10)
[2019-01-16] MEDS: TAMSULOSIN HCL 0.4 MG CAP PO SCH (08:11)
[2019-01-16] MEDS: ENOXAPARIN INJ 40 MG/0.4 ML SYR SQ SCH (08:11)
[2019-01-16] MEDS: METHADONE HCL 10 MG TAB PO SCH ×2 (08:12→20:38)
[2019-01-16] MEDS: INSULIN ASPART 100 UNITS/ML 3 ML PEN SC SCH ×4 (08:12→20:38)
[2019-01-16 08:17] LABS: Basophils # (auto) 0.01 K/uL (0-0.2); Basophils % (auto) 0.1 %; Eosinophils # (auto) 0.09 K/uL (0-0.5); Eosinophils % (auto) 0.8 %; Hematocrit (blood only) 35.3 % (42-52); Hemoglobin 10.8 g/dL (14.0-18.0); Immature Granulocytes # (auto) 0.11 K/uL (0.00-0.02); Lymphocytes # (auto) 1.37 K/uL (1.2-3.4); Lymphocytes % (auto) 12.5 %; Mean Corpuscular Hgb Conc 30.6 g/dL (32-36); Mean Corpuscular Volume 77.2 fL (80-100); Monocytes # (auto) 0.73 K/uL (0.11-0.59); Monocytes % (auto) 6.7 %; Neutrophils # (auto) 8.61 K/uL (1.4-6.5); Neutrophils % (auto) 78.9 %; Platelet Count 203 K/uL (130-400); RDW Coefficient of Variation 18.5 % (11.5-14.5); RDW Standard Deviation 52.7 fL (36.4-46.3); Red Blood Count 4.57 M/uL (4.7-6.1); White Blood Count 10.92 K/uL (4.8-10.8)
[2019-01-16 08:46] LABS: BUN Creatinine Ratio 14.7 (10-20); Calcium 9.3 mg/dl (8.5-10.1); Creatinine Clr Calc Pharmacy 70.1 ml/min; Est GFR (African American) 61.1; Est GFR (Non-African American) 52.8; Potassium 3.7 mmol/L (3.5-5.1)
[2019-01-16] MEDS ORDERED: MICONAZOLE NITRATE POWDER 43 GM EXT PRN (10:18)
--- NOTE | 2019-01-16 10:42 | Pulmonology Progress Note ---
Date of Service January 16, 2019 Assessment & Plan (1) Acute hypoxemic respiratory failure: The patient apparently is much better today than he had been. He seems comfortable and is oxygenating well. The CAT scan is much more abnormal than one would expect just from the chest x-ray alone. The possibility of aspiration needs to be considered. He had previously been admitted in September with a right- sided pneumonia. He was admitted in October with exacerbation COPD. He admits to some dysphasia. The swallowing evaluation has been scheduled. Our suggestions are the followin. Patient currently on Zosyn and doxycycline. 2. Await results of video swallow study. 3. Suggest to taper prednisone fairly quickly back to his baseline which is reported as 10 mg twice daily. 4. While the patient is in the hospital we could give him trials of BiPAP to see if he could tolerate it. 5. Could consider nebulizer for home care if indeed he does not have one already. (2) Pneumonia involving right lung: (3) COPD (chronic obstructive pulmonary disease): COPD type: COPD with acute exacerbation Qualified Code(s): J44.1 - Chronic obstructive pulmonary disease with (acute) exacerbation (4) Sleep apnea: Subjective Patient states that he is feeling really good today. He denies any shortness of breath. He denies a cough. He states his appetite is good. I questioned the patient carefully and he acknowledges that he does cough when he eats solids or liquids. Thus the possibility of aspiration exists. He does deny any vomiting at all. 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 He was in no distress. Weight today listed as 139.1 kg. This is a nearly 3 kg increased compared with yesterday. I am not certain that this is reliable. The patient again appears somewhat cushingoid. Eye exam shows prior cataract surgery. Nasal passages clear. Pharynx is a Mallampati grade 4. Neck is very large. No lymph nodes palpable. Scar is noted at the base of the neck from prior parathyroid surgery as per the patient. Cardiac rate 78/min. Rhythm regular. Blood pressure 167/87. Lung jha reveals diffusely diminished breath sounds. No active wheezes, rales, or rhonchi heard. Saturation 98% on 2 L. Respiratory rate 20 at the time of my exam. Extremities again show areas of ecchymosis particularly on the lower extremities. +2 edema noted. Results & Data Vital Signs (Past 12 Hours) Vital Signs Temp Pulse Pulse Resp BP BP Pulse Ox 01/16/19 07:50 78 01/16/19 07:27 36.6 C 78 22 167/87 H 98 01/16/19 07:00 72 16 93 01/16/19 03:48 36.4 C L 68 20 133/68 97 01/16/19 01:02 80 18 97 01/15/19 23:15 78 01/15/19 23:00 36.7 C 61 20 144/79 H 96 Laboratory Results White count today 10.92. This is the lowest it is been since admission. Hemoglobin 10.8. Platelets 203,000. Electrolytes show sodium 140 potassium 3.7 chloride 105 bicarb 30. BUN 19 with creatinine 1.29. Prior creatinine was 1.5. Blood cultures negative thus far. PG Care Time/CCT Total # of Minutes Spent Total Time Spent with Patient: Total time spent is greater than 50% in coordination of care (as documented) at patient's floor/unit and/or counseling patient:
--- NOTE | 2019-01-16 13:31 | Fluoroscopy Report ---
VIDEO SWALLOW STUDY CLINICAL HISTORY: Aspiration pneumonia. COMPARISON STUDY: No priors. Fluoroscopy time: 1.5 minutes. FINDINGS: Fluoroscopic guidance was provided to the Department of Speech Pathology in performing a vi jericho swallow study. The patient consumed barium-impregnated cracker with paste, pudding, nectar thick liquid, and thin barium while the swallowing mechanism was observed in real-time. No penetration or a spiration was seen with any of the sampled textures. IMPRESSION: No penetration or aspiration was identified. See dedicated speech pathology report for d etailed findings and recommendations. Dictated: 01/16/2019 12:11 PM Transcribed: 01/16/2019 1:05 PM Alia [id number] [email or web address] Electronically signed by: Raoul Covington M.D. 01/16/2019 1:29 PM
--- NOTE | 2019-01-16 18:55 | Hospitalist Progress Note ---
Date of Service January 16, 2019 Assessment & Plan (1) Acute hypoxemic respiratory failure: (1) Acute hypoxemic respiratory failure: (2) Pneumonia involving right lun-year-old male with history of COPD, diabetes, hypertension, chronic pain syndrome on methadone, polymyalgia rheumatica on chronic prednisone, Other problems noted below presenting with progressive shortness of breath and coughing. Acute hypoxic respiratory failure secondary to pneumonia, community-acquired rossy macy aspiration, with possible severe sepsis Blood cultures: No growth so far x24 hours Afebrile, remains at 4 L of nasal cannula Cytosis improving, lactic acid level improved CT chest: IMPRESSION: 1. Diffuse parenchymal infiltrative change right hemithorax with superimposed right basilar atelectatic change.. 2. Left lung is considered clear. 3. Stable prominence ascending aorta at 4.4 cm. This is unchanged from the prior exam. Improving overall Continue Zosyn plus doxycycline IV day #2 Continue gentle IV fluids Nebs scheduled Prednisone 40 mg p.o. daily (usually prednisone 10 mg twice a day), monitor blood sugars closely [employer] consulted, appreciate recommendations Speech therapy consult-video swallow study pending DM 2 insulin requiring, reasonable control as of recent outpatient hemoglobin A1c of 7.7 last September 2018 Pharmacy glycemic control consulted Hypertension Add as needed hydralazine Continue losartan chronic pain/fibromyalgia on methadone, some signs of opioid toxicity given episodic myoclonic jerks Monitor closely polymyalgia rheumatica on chronic steroid therapy Prednisone 40 mg p.o. daily for possible mild COPD exacerbation, (usually prednisone 10 mg twice a day), monitor blood sugars closely history of CVA as per records Continue aspirin chronic anemia, hemoglobin at baseline hx DEMETRIS (CPAP intolerance) past tobacco abuse DVT prophylaxis. Lovenox subcu Full code as per patient . (2) Pneumonia involving right lun-year-old male with history of COPD, diabetes, hypertension, chronic pain syndrome on methadone, polymyalgia rheumatica on chronic prednisone, Other problems noted below presenting with progressive shortness of breath and coughing. Acute hypoxic respiratory failure secondary to pneumonia, community-acquired versus aspiration, with possible severe sepsis Blood cultures: Pending Afebrile, remains at 4 L of nasal cannula WBC 17,000, lactic acid 3.6 CT chest: IMPRESSION: 1. Diffuse parenchymal infiltrative change right hemithorax with superimposed right basilar atelectatic change.. 2. Left lung is considered clear. 3. Stable prominence ascending aorta at 4.4 cm. This is unchanged from the prior exam. Continue Zosyn plus doxycycline IV day #1 Resume IV NSS at 100 cc/h, repeat lactic acid and PRP at 8 PM, monitor Nebs scheduled Prednisone 40 mg p.o. daily (usually prednisone 10 mg twice a day), monitor blood sugars closely Neurologist consulted, appreciate recommendations Speech therapy consult DM 2 insulin requiring, reasonable control as of recent outpatient hemoglobin A1c of 7.7 last September 2018 Pharmacy glycemic control consulted Hypertension, stable Continue losartan chronic pain/fibromyalgia on methadone, some signs of opioid toxicity given episodic myoclonic jerks Monitor closely polymyalgia rheumatica on chronic steroid therapy Prednisone 40 mg p.o. daily for possible mild COPD exacerbation, (usually prednisone 10 mg twice a day), monitor blood sugars closely history of CVA as per records Continue aspirin chronic anemia, hemoglobin at baseline hx DEMETRIS (CPAP intolerance) past tobacco abuse DVT prophylaxis. Lovenox subcu Full code as per patient . Subjective Follow-up for COPD exacerbation, pneumonia Seen resting in bed, comfortable, not in distress Still on 2 L of nasal cannula States he continues to feel improved Denies dyspnea, less cough No chest pain, palpitations, dizziness Denies any symptoms Review of Systems Review of Systems: All systems reviewed & are unremarkable except as noted in HPI & below Physical Exam Physical Exam: General- oriented x 3, not in distress, speaks in sentences with no effort or accessory muscle use Eyes- anicteric Neck- no JVD Lungs-mild rales at the right base, no wheezing, good air entry bilaterally Heart- normal rate, regular rhythm; no murmurs Abdomen- normal bowel sounds, nondistended, soft, nontender Extremities-no edema right lower extremity, no calf tenderness Neuro- alert, oriented x 3; no gross focal neurologic deficits Skin- warm & dry Results & Data Vital Signs (Past 12 Hours) Vital Signs Temp Pulse Pulse Resp BP Pulse Ox 01/16/19 15:29 36.6 C 76 18 181/81 H 94 01/16/19 13:26 80 16 93 01/16/19 13:25 91 01/16/19 11:13 36.6 C 81 20 147/86 H 97 01/16/19 07:50 78 01/16/19 07:27 36.6 C 78 22 167/87 H 98 01/16/19 07:00 72 16 93 Laboratory Results Laboratory Results - last 24 hr 01/15/19 01/15/19 01/15/19 20:08 20:08 21:23 WBC RBC Hgb Hct MCV MCH MCHC RDW Std Deviation RDW Coeff of Don Plt Count MPV Immature Gran % (Auto) Neut % (Auto) Lymph % (Auto) [place] % (Auto) Eos % (Auto) Baso % (Auto) Immature Gran # (Auto) Neut # (Auto) Lymph # (Auto) [place] # (Auto) Eos # (Auto) Baso # (Auto) Sodium 138 Potassium 3.7 Chloride 103 Carbon Dioxide 29 Anion Gap 6.0 BUN 20 H Creatinine 1.50 H Est Cr Clr Drug Dosing 59.6 Est GFR ( Amer) 51.0 Est GFR (Non-Af Amer) 44.0 BUN/Creatinine Ratio 13.2 Glucose 166 H POC Glucose 163 H Lactate 2.5 H* Calcium 8.9 01/16/19 01/16/19 01/16/19 07:44 08:05 08:05 WBC 10.92 H RBC 4.57 L Hgb 10.8 L Hct 35.3 L MCV 77.2 L MCH 23.6 L MCHC 30.6 L RDW Std Deviation 52.7 H RDW Coeff of Don 18.5 H Plt Count 203 MPV 10.0 Immature Gran % (Auto) 1.0 Neut % (Auto) 78.9 Lymph % (Auto) 12.5 [place] % (Auto) 6.7 Eos % (Auto) 0.8 Baso % (Auto) 0.1 Immature Gran # (Auto) 0.11 H Neut # (Auto) 8.61 H Lymph # (Auto) 1.37 [place] # (Auto) 0.73 H Eos # (Auto) 0.09 Baso # (Auto) 0.01 Sodium 140 Potassium 3.7 Chloride 105 Carbon Dioxide 30 Anion Gap 6.0 BUN 19 H Creatinine 1.29 Est Cr Clr Drug Dosing 70.1 Est GFR ( Amer) 61.1 Est GFR (Non-Af Amer) 52.8 BUN/Creatinine Ratio 14.7 Glucose 111 H POC Glucose 111 H Lactate Calcium 9.3 01/16/19 01/16/19 12:31 16:17 WBC RBC Hgb Hct MCV MCH MCHC RDW Std Deviation RDW Coeff of Don Plt Count MPV Immature Gran % (Auto) Neut % (Auto) Lymph % (Auto) [place] % (Auto) Eos % (Auto) Baso % (Auto) Immature Gran # (Auto) Neut # (Auto) Lymph # (Auto) [place] # (Auto) Eos # (Auto) Baso # (Auto) Sodium Potassium Chloride Carbon Dioxide Anion Gap BUN Creatinine Est Cr Clr Drug Dosing Est GFR ( Amer) Est GFR (Non-Af Amer) BUN/Creatinine Ratio Glucose POC Glucose 172 H 210 H Lactate Calcium
[2019-01-16] MEDS: DONEPEZIL HCL 5 MG TAB PO SCH (20:39)
[2019-01-16] MEDS: LATANOPROST 0.005% OP SOLN 2.5 ML BTL OP SCH (20:39)
[2019-01-16] MEDS: HydrALAZINE HCL 20 MG/ML VIAL IV PRN (23:39)
[2019-01-17] MEDS: LEVALBUTEROL 1.25MG/0.5ML NEB INH SCH ×4 (01:12→19:07)
[2019-01-17] MEDS: IPRATROPIUM BROMIDE NEB SOLN 0.02% 2.5 ML VIAL INH SCH ×4 (01:12→19:07)
[2019-01-17] MEDS: DOXYCYCLINE HYCLATE 100 MG CAP PO SCH ×2 (05:41→17:14)
[2019-01-17] MEDS ORDERED: INSULIN HUMAN NPH SC SCH ×2 (07:30)
[2019-01-17] MEDS: ASPIRIN 81 MG ECTAB PO SCH (07:51)
[2019-01-17] MEDS: predniSONE 10 MG TABLET PO SCH (07:51)
[2019-01-17] MEDS: GABAPENTIN 600 MG TAB PO SCH ×3 (07:52→21:17)
[2019-01-17] MEDS: LOSARTAN POTASSIUM 50 MG TAB PO SCH (07:52)
[2019-01-17] MEDS: PANTOprazole 40 MG TAB PO SCH (07:52)
[2019-01-17] MEDS: LACTOBACILLUS ACIDOPHILUS (FLORANEX) TAB PO SCH ×2 (07:52→21:18)
[2019-01-17] MEDS: DULOXETINE HCL 60 MG CAP PO SCH (07:53)
[2019-01-17] MEDS: ENOXAPARIN INJ 40 MG/0.4 ML SYR SQ SCH (07:53)
[2019-01-17] MEDS: CYANOCOBALAMIN 500 MCG TABLET (VITAMIN B-12) PO SCH (07:53)
[2019-01-17] MEDS: TAMSULOSIN HCL 0.4 MG CAP PO SCH (07:53)
[2019-01-17] MEDS: PIPERACILLIN/TAZOBACTAM 4.5 GM in DEXTROSE 5% 100 ML IV SCH (08:00)
[2019-01-17] MEDS: METHADONE HCL 10 MG TAB PO SCH ×2 (08:00→21:16)
[2019-01-17] MEDS: INSULIN ASPART 100 UNITS/ML 3 ML PEN SC SCH ×4 (08:01→21:18)
[2019-01-17] MEDS ORDERED: AMLODIPINE BESYLATE 5 MG TAB PO ONE (10:15)
--- NOTE | 2019-01-17 10:22 | Hospitalist Progress Note ---
Date of Service January 17, 2019 Assessment & Plan (1) Acute hypoxemic respiratory failure: (1) Acute hypoxemic respiratory failure: (2) Pneumonia involving right lun-year-old male with history of COPD, diabetes, hypertension, chronic pain syndrome on methadone, polymyalgia rheumatica on chronic prednisone, Other problems noted below presenting with progressive shortness of breath and coughing. Acute hypoxic respiratory failure secondary to pneumonia, community-acquired rossy macy aspiration, with possible severe sepsis Blood cultures: No growth so far x24 hours Afebrile, remains at 4 L of nasal cannula Cytosis improving, lactic acid level improved CT chest: IMPRESSION: 1. Diffuse parenchymal infiltrative change right hemithorax with superimposed right basilar atelectatic change.. 2. Left lung is considered clear. 3. Stable prominence ascending aorta at 4.4 cm. This is unchanged from the prior exam. Continues to improve Transition from Zosyn to Augmentin Continue doxycycline Nebs scheduled Prednisone 40 mg p.o. daily (usually prednisone 10 mg twice a day), taper to 30 mg p.o. daily Pharmacy Operations Coordinator consulted, appreciate recommendations Speech therapy consult-video swallow study: Negative for aspiration DM 2 insulin requiring, reasonable control as of recent outpatient hemoglobin A1c of 7.7 last September 2018 Pharmacy glycemic control consulted Hypertension Not at goal Amlodipine added Continue losartan Denuded perirectal area Wound care service consulted, recommendations noted Cleanse after each soiling, dusting and stoma powder and then protective ointment Continue Ehob mattress chronic pain/fibromyalgia on methadone, some signs of opioid toxicity given episodic myoclonic jerks Monitor closely polymyalgia rheumatica on chronic steroid therapy Prednisone 40 mg p.o. daily for possible mild COPD exacerbation, (usually prednisone 10 mg twice a day), taper history of CVA as per records Continue aspirin chronic anemia, hemoglobin at baseline hx DEMETRIS (CPAP intolerance) past tobacco abuse DVT prophylaxis. Lovenox subcu Full code as per patient . Disposition Anticipate discharge to home tomorrow Subjective Follow-up for COPD exacerbation, right-sided pneumonia Seen resting in bed, comfortable, off oxygen supplement States he continues to feel improved Denies cough, sputum production Denies chest pain, shortness of breath, palpitations, dizziness No fevers or chills No other symptoms Review of Systems Review of Systems: All systems reviewed & are unremarkable except as noted in HPI & below Physical Exam Physical Exam: General- oriented x 3, not in distress, speaks in sentences with no effort or accessory muscle use Eyes- anicteric Neck- no JVD Lungs-very faint rales at the right base, no wheezing, clear breath sounds on the left side Heart- normal rate, regular rhythm; no murmurs Abdomen- normal bowel sounds, nondistended, soft, nontender Extremities-edema of the right lower extremity, no calf tenderness Neuro- alert, oriented x 3; no gross focal neurologic deficits Skin- warm & dry Results & Data Vital Signs (Past 12 Hours) Vital Signs Temp Pulse Pulse Resp BP BP Pulse Ox 01/17/19 08:38 76 01/17/19 07:38 36.8 C 66 20 157/78 H 94 01/17/19 07:16 75 18 96 01/17/19 04:00 36.6 C 81 20 168/80 H 92 01/17/19 01:12 74 16 98 01/17/19 00:42 175/76 H 01/16/19 23:40 69 01/16/19 23:00 36.5 C 73 20 183/88 H 95 Laboratory Results Laboratory Results - last 24 hr 01/16/19 01/17/19 01/17/19 20:31 07:32 11:56 POC Glucose 143 H 91 172 H 01/17/19 16:46 POC Glucose 186 H
[2019-01-17] MEDS: FLUTICASONE PROPIONATE NA SPR 16 GM BTL SCH (10:40)
--- NOTE | 2019-01-17 12:01 | Pulmonology Progress Note ---
Date of Service January 17, 2019 Assessment & Plan (1) Acute hypoxemic respiratory failure: He seems to be doing much better today. Swallow study did not reveal any evidence of aspiration. Procalcitonin ordered for today. Our suggestions are the followin. Patient currently on Zosyn and doxycycline. This can be switched to p.o. antibiotic for a total course of 7 days of antibiotics. Think he is safe to discharge from respiratory standpoint. 2. Swallow study as noted previously does not indicate any aspiration. 3. I am not certain why he is on prednisone. He oes not have COPD based on his PFTs in 2013. He should be slowly weaned off of prednisone as I doubt that this is offering him much benefit from a respiratory standpoint. There are significant side effects associated with long-term prednisone use including diabetes, thin skinning, bleeding and bone density issues among many others. 4. It does seem that he has significant lower extremity weakness and this is preventing him from ambulating. This probably should be worked up further as an outpatient perhaps with a neurology consultation. 5. He is morbidly obese and likely has DEMETRIS/OHS. He needs to wear his CPAP anytime he sleeps. He needs significant weight loss. His overall prognosis is quite poor if he continues to be essentially bedbound and does not lose any weight. Pulmonary can follow-up on an as-needed basis. He does need a repeat chest x- ray in 6 weeks. He can follow-up with me in the pulmonary clinic in 6 weeks as well with a PFT prior clinic visit. Thank you for the consult. (2) Pneumonia involving right lung: Lung location: lower lobe of lung Pneumonia type: due to unspecified organism Qualified Code(s): J18.1 - Lobar pneumonia, unspecified organism (3) COPD (chronic obstructive pulmonary disease): There is no evidence of COPD based on his pulmonary function tests in 2013. He does need repeat pulmonary function test. COPD type: COPD with acute exacerbation Qualified Code(s): J44.1 - Chronic obstructive pulmonary disease with (acute) exacerbation (4) Sleep apnea: Sleep apnea type: obstructive Qualified Code(s): G47.33 - Obstructive sleep apnea (adult) (pediatric) (5) Obesity hypoventilation syndrome: (6) Right lower lobe pneumonia: Subjective Patient reports feeling better. Cough is now minimal. He denies any fevers or chills. Denies any chest pain. He does endorse continued weakness in his lower extremities he has had for years. He is interested in being evaluated by neurologist. Review of Systems Review of Systems: All systems reviewed & are unremarkable except as noted in HPI & below Physical Exam Constitutional: Morbidly obese. Numerous ecchymosis throughout his skin. Laying in bed in no distress. Saturating on room air in the high 90s. Eyes: PERRL, conjunctivae normal, anicteric sclerae normal visual jha by confrontation ENMT: external ear and nose normal, oropharynx normal Ears: no hearing impairment and no external ear abnormality Neck: trachea midline, no thyromegaly normal visual inspection Respiratory: normal respiratory effort Mild crackles in the right lower lung. Cardiovascular: RRR, no murmur, no edema 2+ pitting edema in the lower extremities. Gastrointestinal (Abdomen): normal bowel sounds, soft, nontender, no hepa tosplenomegaly Inspection/Auscultation: abdomen not distended Musculoskeletal: Head/Neck/Chest: normocephalic Bedbound. Able to move his legs. There is weakness in all of his extremities. Skin: Numerous ecchymosis noted throughout his body. Neurologic: PERRL, EOMI, accommodation nl, no face palsy, no dysarthria CN's II-XI intact bilaterally Psychiatric: A+Ox3, euthymic affect Lymphatic: no cervical or axillary lymphadenopathy Results & Data Vital Signs (Past 12 Hours) Vital Signs Temp Pulse Pulse Resp BP BP Pulse Ox 01/17/19 08:38 76 01/17/19 07:38 98.2 F 66 20 157/78 H 94 01/17/19 07:16 75 18 96 01/17/19 04:00 97.9 F 81 20 168/80 H 92 01/17/19 01:12 74 16 98 01/17/19 00:42 175/76 H CBCs and chemistries reviewed. Videofluoroscopic swallowing reviewed as well with no evidence of aspiration. CT chest reviewed which demonstrated right lower lobe infiltrate. PG Care Time/CCT Total # of Minutes Spent Total Time Spent with Patient: Total time spent is greater than 50% in coordination of care (as documented) at patient's floor/unit and/or counseling patient:
--- NOTE | 2019-01-17 14:42 | Pharmacy Report ---
Pharmacy Glycemic Short Note 2 - Date of Service January 17, 2019 - Glycemic Short BSG Results (Last 24 hours): 01/16/19 01/16/19 01/17/19 16:17 20:31 07:32 POC Glucose 210 H 143 H 91 01/17/19 11:56 POC Glucose 172 H OUTPATIENT ANTIDIABETIC REGIMEN: * n/a - diet controlled * A1c 7.7% on 01/15/19 ASSESSMENT: 01/17 * Mr. Kong received bolus insulin only yesterday, for a total of 24 units (BSGs ranging from 91-210 mg/dL) * He remains on prednisone, which has been tapered down to 30 mg daily * My plan for this morning was to transition to just once daily NPH to coincide with the once daily prednisone; however, the patient refused the NPH dose * Will plan to resume a carb ratio since he does not have the NPH on board 01/15 * Mr Kong is a 78yo M unbeknownst to the pharmacy glycemic service. P/w COPD exacerbation (unsure of his GOLD classification) vs r/o PNA. He does not take any diabetes medications as an outpt. His A1C is 7.7%, this is likely close to his goal A1C ~7-<8%. * He is ordered a diet and tolerating it well. Po Prednisone 40mg QD is ordered. He does take prednisone 10mg PO for PMR. PLAN FOR INPATIENT GLYCEMIC CONTROL: * Basal insulin * Hold NPH for now since patient refused dose this AM; will reassess tomorrow * Bolus insulin * NovoLog per scale ACHS or Q6hrs while NPO * Goal Range: Low 110 mg/dL - High 140 mg/dL * Correction Factor: 15 mg/dL/unit * Nutritional / Prandial insulin per carb ratio of 1 unit per 6 grams CHO consumed PLAN FOR DISCHARGE: A1c = 7.7 % on 01/15/19 Goal A1c = < 8 % based on age and comorbidities Less stringent A1C goals (such as less than 8%) may be appropriate for patients with a history of severe hypoglycemia, limited life expectancy, advanced microvascular or macrovascular complications, extensive comorbid conditions, or long-standing diabetes in whom the goal is difficult to achieve despite diabetes self-management education, appropriate glucose monitoring, and effective doses of multiple glucose-lowering agents including insulin. Metformin should be started at the time type 2 diabetes is diagnosed unless there are contraindications. Metformin is effective and safe, is inexpensive, and may reduce risk of cardiovascular events and . B12 supplementation may be necessary with termination clerk metformin use FDA has revised the label for metformin to reflect its safety in patients with eGFR 30 mL/min or above Recommend starting: Metformin XR 500mg PO daily with evening meal. Typically the XR formulation of metformin is better tolerated than the immediate release formulation. Continue to titrate metformin dosing upwards as recommended. Dosage increases should be made in increments of 500 mg weekly, up to 2,000 mg/day PO, given in divided doses. Doses above 2000 mg/day may be better tolerated if divided and given 3 times per day with meals. Max: 2,550 mg/day PO, in divided doses Support Patient Self-Management Healthy Lifestyle (diet, exercise, and smoking cessation) Disease self-management (SMBG) Prevention of complications (BP, Lipid goals, Immunizations) Consider outpatient Diabetes Self-Management Education & Support
[2019-01-17] MEDS: HydrALAZINE HCL 20 MG/ML VIAL IV PRN (16:53)
[2019-01-17] MEDS: AMOXICILLIN/CLAVULANATE 875 MG TAB PO SCH (16:53)
[2019-01-17] MEDS: DONEPEZIL HCL 5 MG TAB PO SCH (21:17)
[2019-01-17] MEDS: LATANOPROST 0.005% OP SOLN 2.5 ML BTL OP SCH (21:20)
[2019-01-17 22:40] LABS: Codeine Urine NEGATIVE NG/ML (CUTOFF=50); Hydrocodone Urine NEGATIVE NG/ML (CUTOFF=50); Hydromor Urine NEGATIVE NG/ML (CUTOFF=50); Methadone, Ur Metabolite 5490 NG/ML (CUTOFF=100); Morphine Urine NEGATIVE NG/ML (CUTOFF=50); Norhydrocodone Conf Ur NEGATIVE NG/ML (CUTOFF=50); Noroxycodone Urine NEGATIVE NG/ML (CUTOFF=50); Oxycodone Urine NEGATIVE NG/ML (CUTOFF=50); Oxymorph Urine NEGATIVE NG/ML (CUTOFF=50)
[2019-01-18] MEDS: IPRATROPIUM BROMIDE NEB SOLN 0.02% 2.5 ML VIAL INH SCH ×3 (00:40→13:42)
[2019-01-18] MEDS: LEVALBUTEROL 1.25MG/0.5ML NEB INH SCH ×3 (00:42→13:42)
[2019-01-18 03:57] VITALS: O2SAT 94
[2019-01-18] MEDS: AMOXICILLIN/CLAVULANATE 875 MG TAB PO SCH (04:10)
[2019-01-18] MEDS: DOXYCYCLINE HYCLATE 100 MG CAP PO SCH (05:47)
[2019-01-18] MEDS: LEVOTHYROXINE SODIUM 50 MCG TABLET PO SCH (05:47)
[2019-01-18 06:25] LABS: Creatinine Clr Calc Pharmacy 83.6 ml/min; Est GFR (African American) 75.8; Est GFR (Non-African American) 65.4
[2019-01-18 07:02] VITALS: BP 180/83; TEMP 97.5
[2019-01-18] MEDS ORDERED: INSULIN HUMAN NPH SC SCH (08:00)
[2019-01-18] MEDS: INSULIN ASPART 100 UNITS/ML 3 ML PEN SC SCH ×2 (08:34→12:08)
[2019-01-18] MEDS ORDERED: AMLODIPINE BESYLATE 5 MG TAB PO SCH (09:00)
[2019-01-18] MEDS: LACTOBACILLUS ACIDOPHILUS (FLORANEX) TAB PO SCH (09:42)
[2019-01-18] MEDS: METHADONE HCL 10 MG TAB PO SCH (09:42)
[2019-01-18] MEDS: GABAPENTIN 600 MG TAB PO SCH (09:43)
[2019-01-18] MEDS: predniSONE 10 MG TABLET PO SCH (09:43)
[2019-01-18] MEDS: CYANOCOBALAMIN 500 MCG TABLET (VITAMIN B-12) PO SCH (09:43)
[2019-01-18] MEDS: LOSARTAN POTASSIUM 50 MG TAB PO SCH (09:44)
[2019-01-18] MEDS: ASPIRIN 81 MG ECTAB PO SCH (09:45)
[2019-01-18] MEDS: ENOXAPARIN INJ 40 MG/0.4 ML SYR SQ SCH (09:45)
[2019-01-18] MEDS: DULOXETINE HCL 60 MG CAP PO SCH (09:45)
[2019-01-18] MEDS: PANTOprazole 40 MG TAB PO SCH (09:45)
[2019-01-18] MEDS: FLUTICASONE PROPIONATE NA SPR 16 GM BTL SCH (09:45)
[2019-01-18] MEDS: TAMSULOSIN HCL 0.4 MG CAP PO SCH (09:45)
--- NOTE | 2019-01-18 10:26 | Hospitalist Progress Note ---
Date of Service January 18, 2019 Assessment & Plan (1) Acute hypoxemic respiratory failure: (1) Acute hypoxemic respiratory failure: (2) Pneumonia involving right lun-year-old male with history of COPD, diabetes, hypertension, chronic pain syndrome on methadone, polymyalgia rheumatica on chronic prednisone, Other problems noted below presenting with progressive shortness of breath and coughing. Acute hypoxic respiratory failure secondary to pneumonia, community-acquired, with possible severe sepsis Blood cultures: No growth so far x24 hours CT chest: IMPRESSION: 1. Diffuse parenchymal infiltrative change right hemithorax with superimposed right basilar atelectatic change.. 2. Left lung is considered clear. 3. Stable prominence ascending aorta at 4.4 cm. This is unchanged from the prior exam. Patient has received Zosyn and doxycycline while admitted Placed on nebs every 6 hours and prednisone taper [employer] Pulper consulted Has improved significantly Weaned off oxygen Afebrile, leukocytosis resolved, lactic acid improved Cleared for discharge by pulmonary service Discharge plan: Augmentin twice a day and doxycycline twice a day x3 more days to complete 7 days anabiotic course Nebulizer treatments with Atrovent and Xopenex 3 times a day and 4 hours as ne eded Resume usual prednisone 10 mg twice a day Repeat chest x-ray in 6 weeks Follow-up with the [facility] pulmonary clinic care of Dr. Layton in 6 weeks Speech therapy consult-video swallow study: Negative for aspiration DM 2 A1c 7.7 Placed on insulin Lantus and sliding scale while admitted Recommend metformin 500 mg twice a day upon discharge Outpatient follow-up Hypertension Not at goal Amlodipine 10 mg p.o. daily added Continue losartan For blood pressure follow-up with PCP Denuded perirectal area Wound care service consulted, recommendations noted Cleanse after each soiling, dusting on stoma powder and then protective ointment Frequent bed turning Monitor closely chronic pain/fibromyalgia methadone polymyalgia rheumatica on chronic steroid therapy Continue usual prednisone 10 mg twice a day history of CVA as per records Continue aspirin chronic anemia, hemoglobin at baseline hx DEMETRIS (CPAP intolerance) past tobacco abuse DVT prophylaxis. Lovenox subcu Full code as per patient . Disposition Discharge to home Follow-up with primary care physician this coming week, scheduling office closed, clinic to call patient Follow-up with the [facility] pulmonary clinic care of Dr. Vilenski in 6 weeks Subjective ff up for pneumonia seen resting in bed, comfortable off nasal cannula states he feels much better overall denies dyspnea, cough, chest pain denies other symptoms states he is ready and would like to be discharged today Review of Systems Review of Systems: All systems reviewed & are unremarkable except as noted in HPI & below Physical Exam Physical Exam: General- oriented x 3, not in distress, speaks in sentences with no effort or accessory muscle use Eyes- anicteric Neck- no JVD Lungs- clear breath sounds bilaterally, no rales/wheezes Heart- normal rate, regular rhythm; no murmurs Abdomen- normal bowel sounds, nondistended, soft, nontender Extremities- mild right lower leg edema, mild erythema on the anterior right lower leg, no tenderness/warmth, no calf tenderness Neuro- alert, oriented x 3; no gross focal neurologic deficits Skin- warm & dry Results & Data Vital Signs (Past 12 Hours) Vital Signs Temp Pulse Pulse Resp BP BP Pulse Ox 01/18/19 07:26 74 01/18/19 07:01 36.4 C L 79 180/83 H 94 01/18/19 06:56 80 18 94 01/18/19 03:56 36.6 C 77 19 130/79 94 01/18/19 00:42 83 18 95 01/18/19 00:24 36.6 C 76 20 167/64 H 95 01/17/19 23:33 85 Laboratory Results Laboratory Results - last 24 hr 01/15/19 01/17/19 01/17/19 04:54 11:56 16:46 Creatinine Est Cr Clr Drug Dosing Est GFR ( Amer) Est GFR (Non-Af Amer) POC Glucose 172 H 186 H U Codeine Confrm GC/MS NEGATIVE Ur Morphine (GC/MS) NEGATIVE Ur Hydrocodone (GC/MS) NEGATIVE Ur Norhydrocodone NEGATIVE Ur Noroxycodone NEGATIVE Urine Oxycodone (GC/MS) NEGATIVE U Oxymorphone GC/MS NEGATIVE U Methadone Metabolites 5490 A Ur Methadone Confirm 5000 A Ur Hydromorphone (GC/MS) NEGATIVE 01/17/19 01/18/19 01/18/19 20:21 05:25 07:48 Creatinine 1.08 Est Cr Clr Drug Dosing 83.6 Est GFR ( Amer) 75.8 Est GFR (Non-Af Amer) 65.4 POC Glucose 182 H 114 H U Codeine Confrm GC/MS Ur Morphine (GC/MS) Ur Hydrocodone (GC/MS) Ur Norhydrocodone Ur Noroxycodone Urine Oxycodone (GC/MS) U Oxymorphone GC/MS U Methadone Metabolites Ur Methadone Confirm Ur Hydromorphone (GC/MS)
--- NOTE | 2019-01-18 11:06 | Pharmacy Report ---
Pharmacy Glycemic Short Note 2 - Date of Service January 18, 2019 - Glycemic Short BSG Results (Last 24 hours): 01/17/19 01/17/19 01/17/19 11:56 16:46 20:21 POC Glucose 172 H 186 H 182 H 01/18/19 07:48 POC Glucose 114 H OUTPATIENT ANTIDIABETIC REGIMEN: * n/a - diet controlled * A1c 7.7% on 01/15/19 ASSESSMENT: 01/18 * Mr. Kong received a total of 20 units of insulin yesterday (bolus only as he refused the NPH dose). When I spoke w/ the nurse yesterday, apparently the patient was concerned because he was told before that once he started taking insulin, he would never go off of it. He has since been made informed that the insulin is only being used as an inpatient as per our standard protocol and is willing to receive insulin. * Today, will plan to change back to once daily NPH and remove the prandial coverage as the NPH will cover the prednisone. 01/17 * Mr. Kong received bolus insulin only yesterday, for a total of 24 units (BSGs ranging from 91-210 mg/dL) * He remains on prednisone, which has been tapered down to 30 mg daily * My plan for this morning was to transition to just once daily NPH to coincide with the once daily prednisone; however, the patient refused the NPH dose * Will plan to resume a carb ratio since he does not have the NPH on board 01/15 * Mr Kong is a 78yo M unbeknownst to the pharmacy glycemic service. P/w COPD exacerbation (unsure of his GOLD classification) vs r/o PNA. He does not take any diabetes medications as an outpt. His A1C is 7.7%, this is likely close to his goal A1C ~7-<8%. * He is ordered a diet and tolerating it well. Po Prednisone 40mg QD is ordered. He does take prednisone 10mg PO for PMR. PLAN FOR INPATIENT GLYCEMIC CONTROL: * Basal insulin * Resume NPH qAM to cover the once daily prednisone - dose today to be 22 units (based off of yesterday's requirements) * Bolus insulin * NovoLog per scale ACHS or Q6hrs while NPO * Goal Range: Low 110 mg/dL - High 150 mg/dL (increase slightly d/t patient's age/comorbidities) * Correction Factor: 15 mg/dL/unit * Remove carb ratio PLAN FOR DISCHARGE: A1c = 7.7 % on 01/15/19 * Goal A1c = < 8 % based on age and comorbidities. Less stringent A1C goals (such as less than 8%) may be appropriate for patients with a history of severe hypoglycemia, limited life expectancy, advanced microvascular or macrovascular complications, extensive comorbid conditions, or long-standing diabetes in whom the goal is difficult to achieve despite diabetes self- management education, appropriate glucose monitoring, and effective doses of multiple glucose-lowering agents including insulin. Metformin should be started at the time type 2 diabetes is diagnosed unless there are contraindications. Metformin is effective and safe, is inexpensive, and may reduce risk of cardiovascular events and . B12 supplementation may be necessary with terminal computer operator metformin use FDA has revised the label for metformin to reflect its safety in patients with eGFR 30 mL/min or above Recommend starting: Metformin XR 500mg PO daily with evening meal. Typically the XR formulation of metformin is better tolerated than the immediate release formulation. Continue to titrate metformin dosing upwards as recommended. Dosage increases should be made in increments of 500 mg weekly, up to 2,000 mg/day PO, given in divided doses. Doses above 2000 mg/day may be better tolerated if divided and given 3 times per day with meals. Max: 2,550 mg/day PO, in divided doses In addition: Support Patient Self-Management Healthy Lifestyle (diet, exercise, and smoking cessation) Disease self-management (SMBG) Prevention of complications (BP, Lipid goals, Immunizations) Consider outpatient Diabetes Self-Management Education & Support
--- NOTE | 2019-01-18 11:18 | Discharge Summary ---
Date of Service January 18, 2019 Admission HPI Per Admitting Provider History obtained from patient, family, and records. Limited history from patient secondary to disorientation. Medical history is significant for COPD, past tobacco abuse, hypertension, chronic pain/fibromyalgia on methadone, polymyalgia rheumatica on chronic steroid therapy, history of CVA as per records, chronic anemia (baseline hemoglobin of 11-12), DM 2 insulin requiring, mood disorder, DEMETRIS (CPAP intolerance) Recent confinement October 2018 for COPD exacerbation. Today increasing shortness of breath and shakiness noted at home. Increasing O2 requirement as per . Patient denies chest pain. Usual aches. No unusual cough symptoms although patient noted to be coughing with meals/water intake if not careful as per patient . At the ER, patient received Solu-Medrol, nebs, and Levaquin for possible COPD exacerbation. 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, lives with Admission Exam Per Admitting Provider GENERAL: Lethargic, min respiratory distress, obese SKIN: Pallor , warm HEENT: Partial alopecia, pale palpebral conjunctivae, no ptosis, dry buccal mucosa, BiPAP in place NECK : Supple, short neck, no tenderness CHEST : Decreased breath sounds, expiratory wheeze on the right side , no tenderness HEART : Tachycardic, no obvious murmurs ABDOMEN: distention, nontender EXTREMITIES : Minimal LE swelling, no LE tenderness, no other conspicuous deformities noted NEUROLOGIC : Lethargic, no facial asymmetry, episodic myoclonic jerks of the left upper extremity Principal Diagnosis ACUTE HYPOXIC RESPIRATORY FAILURE, RIGHT-SIDED PNEUMONIA Discharge Exam General- oriented x 3, not in distress, speaks in sentences with no effort or accessory muscle use Eyes- anicteric Neck- no JVD Lungs- clear breath sounds bilaterally, no rales/wheezes Heart- normal rate, regular rhythm; no murmurs Abdomen- normal bowel sounds, nondistended, soft, nontender Extremities- mild right lower leg edema, mild erythema on the anterior right lower leg, no tenderness/warmth, no calf tenderness Neuro- alert, oriented x 3; no gross focal neurologic deficits Skin- warm & dry Discharge Data Allergies Allergy/AdvReac Type Severity Reaction Status Date / Time Iodinated Contrast- Oral and Allergy Intermediate HIVES Verified 10/22/18 13:15 IV Dye lactose AdvReac Gastrointestinal Unverified 01/14/19 21:00 Upset Consultations 01/14/19 21:01 ED Decision to Admit Stat 01/15/19 05:38 Consult Pulmonology Routine Ordered Studies 01/15/19 04:15 CT chest wo con CT DOSE: 812.27 mGycm HISTORY: Dyspnea cough, sob TECHNIQUE: Multiaxial CT images of the chest were performed without contrast. A dose lowering technique was utilized adhering to the principles of ALARA. COMPARISON: 02/13/2017 FINDINGS: Stable mild to moderate prominence ascending aorta at 4.4 cm. Moderate atherosclerotic change remainder of the thoracic aorta. Interval development of a parenchymal infiltrate right lower lobe. Minimal infiltrative changes also noted in the right middle lung region. Minimal groundglass changes involving the right upper lung. Left lung is considered clear. IMPRESSION: 1. Diffuse parenchymal infiltrative change right hemithorax with superimposed right basilar atelectatic change.. 2. Left lung is considered clear. 3. Stable prominence ascending aorta at 4.4 cm. This is unchanged from the prior exam. 01/15/19 10:25 US venous doppler LE RT Stat IMPRESSION: No evidence of deep venous thrombosis. 01/16/19 10:30 FL video swallow Routine IMPRESSION: No penetration or aspiration was identified. See dedicated speech pathology report for detailed findings and recommendations. Hospital Course (1) Acute hypoxemic respiratory failure: (1) Acute hypoxemic respiratory failure: (2) Pneumonia involving right lun-year-old male with history of COPD, diabetes, hypertension, chronic pain syndrome on methadone, polymyalgia rheumatica on chronic prednisone, Other problems noted below presenting with progressive shortness of breath and coughing. Acute hypoxic respiratory failure secondary to pneumonia, community-acquired, with possible severe sepsis Blood cultures: No growth so far x24 hours CT chest: IMPRESSION: 1. Diffuse parenchymal infiltrative change right hemithorax with superimposed right basilar atelectatic change.. 2. Left lung is considered clear. 3. Stable prominence ascending aorta at 4.4 cm. This is unchanged from the prior exam. 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 Layton in 6 weeks DM 2 A1c 7.7 Placed on insulin Lantus and sliding scale while admitted Recommend metformin 500 mg twice a day upon discharge Discussed with patient's , she would like to discuss this with Dr. Meyers primary care physician first Outpatient follow-up Hypertension Not at goal Cussed with patient's , reports blood pressure usually is at goal at home and is elevated when patient admitted to the hospital Continue amlodipine 5 mg p.o. as needed for systolic blood pressure more than 160 Continue usual losartan-HCTZ For blood pressure follow-up with PCP Denuded perirectal area Wound care service consulted, recommendations noted Cleanse after each soiling, dusting on stoma powder and then protective ointment Frequent bed turning Monitor closely chronic pain/fibromyalgia methadone polymyalgia rheumatica on chronic steroid therapy Continue usual prednisone 10 mg twice a day history of CVA as per records Continue aspirin chronic anemia, hemoglobin at baseline hx DEMETRIS (CPAP intolerance) past tobacco abuse Disposition Discharge to home Follow-up with primary care physician this coming week, scheduling office closed, clinic to call patient Follow-up with the [facility] pulmonary clinic care of Dr. Layton in 6 weeks Case discussed with patient and his today over the phone in detail and at length All questions answered They are comfortable, understanding, agreeable with plan of care Total Time Total Time Spent Total Time Spent (In Minutes): 50 minutes Discharge Plan Discharge Items Patient Disposition: Home - Self-Care Reason For Visit: RESP FAILURE Discharge Diagnosis: Pneumonia, right lung Condition on Discharge: Good Activity: As commented below Activity Comment: Resume activity gradually as tolerated Non-emergency contact: Primary Care Provider Call non-emergency contact if: you have any medication questions, your symptoms worsen and you have a fever Follow-up/Referrals: Ozzy Robertson MD [Physician] - Chi Meyers MD [Primary Care Provider] - Diet: Carb Consistent or DM2 and Heart Healthy Addtl Attending Provider Instructions: Please follow-up with Dr. Meyers in 1 week. Please follow-up with [facility] lung specialist Dr. Layton in 6 weeks. Call primary care physician or return to the ER immediately if with worsening of symptoms, including fever/chills, increasing cough, shortness of breath. Your new medications are: Augmentin 800 mg twice a day x3 days for pneumonia Doxycycline 100 mg twice daily x3 days for pneumonia Levalbuterol and ipratropium nebulization treatments 3 times a day and every 4 hours as needed for shortness of breath or wheezing (use for at least 7 days and discuss with primary care physician if this needs to be continued) Amlodipine 10 mg daily for elevated blood pressure Stoma powder and protective ointment for redness on the the buttocks area Please monitor redness over the area, clean after swelling, apply stoma powder and ointment daily. Frequent bed turning. Pending Studies at Discharge: Yes Studies:: Repeat chest x-ray in 6 weeks. Stand-Alone Forms: My [facility] Medications and DC Order Prescriptions: New doxycycline hyclate 100 mg Capsule 100 mg PO Q12H 3 Days Qty: 6 RF: 0 amoxicillin-pot clavulanate 875-125 mg Tablet 1 tab PO Q12H 3 Days Qty: 6 RF: 0 ipratropium bromide 0.02 % solution 2.5 ml INH TID Qty: 75 RF: 2 levalbuterol HCl 1.25 mg/0.5 mL solution for nebulization 1.25 mg INH TID Qty: 30 RF: 0 Continued cholecalciferol (vitamin D3) 2,000 unit Tablet 2,000 unit PO QAM Qty: 0 RF: 0 duloxetine 60 mg Capsule,Delayed Release(Dr/Ec) 60 mg PO QAM Qty: 0 RF: 0 aspirin [Ecotrin Low Strength] 81 mg Tablet,Delayed Release (Dr/Ec) 81 mg PO QAM Qty: 0 RF: 0 omeprazole 20 mg Capsule,Delayed Release(Dr/Ec) 20 mg PO QAM Qty: 0 RF: 0 prednisone 10 mg Tablet 10 mg PO BID Qty: 0 RF: 0 donepezil 5 mg Tablet 5 mg PO HS Qty: 0 RF: 0 levothyroxine 25 mcg Tablet 50 mcg PO 4XWK Qty: 0 RF: 0 gabapentin 600 mg Tablet 600 mg PO TID Qty: 0 RF: 0 cyanocobalamin (vitamin B-12) 1,000 mcg Tablet 1,000 mcg PO QAM Qty: 0 RF: 0 Lactobacillus acidophilus Capsule 1 cap PO BID Qty: 0 RF: 0 Krill Oil ([place] 3 and 6) 1000-130(40-80) mg Capsule 1 cap PO DAILY Qty: 0 RF: 0 methadone 10 mg Tablet 30 mg PO BID Qty: 0 RF: 0 amlodipine 5 mg tablet 5 mg PO DAILY PRN (Reason: SBP > 160) RF: 0 potassium chloride 20 mEq tablet,ER particles/crystals 20 meq PO BID RF: 0 tamsulosin 0.4 mg capsule 0.4 mg PO DAILY RF: 0 latanoprost 0.005 % drops 1 drp ophthalmic (eye) HS RF: 0 levothyroxine 25 mcg Tablet 25 mcg PO 3XWK RF: 0 fluticasone propionate 50 mcg/actuation [place],Suspension 1 spray INTRANASAL DAILY PRN (Reason: Congestion) RF: 0 losartan-hydrochlorothiazide 100-12.5 mg Tablet 1 tab PO QAM RF: 0 Discontinued celecoxib 200 mg Capsule 200 mg PO QAM Qty: 0 RF: 0 Combivent Respimat 20-100 mcg/actuation Mist 1 puff INHALATION QID PRN (Reason: Shortness Of Breath) RF: 0 Discharge Orders: Discharge Order (Routine); Ordered 01/18/19 Ordered By: Sharath Varma/Other Patient Handouts: Diabetes Senior Care Complications, Diabetes Type 2 Coping, Diabetes Healthy Meals, Diabetes Carbs, Diabetes Exercise Benefits, Diabetes Exercise Get Started, Diabetes Activity Tips, Diabetes Manage A1C Test Admission Data Admit Date/Time: 01/14/19 21:47 Attending Provider: Sharath Hinds Admit Provider: Jony Schwab Primary Care Provider: Chi Meyers Other Providers: Jony Schwab ; Jony Veliz
[2019-01-18 12:36] VITALS: PULSE 88
== END 2019-01-18 13:49 | disposition home or self-care (01) | DRG 871 ==
LOC: ED 18:29 → 2W 21:47